=== PATIENT | female | born 1955 | race Caucasian/White ===

== ENCOUNTER 2020-07-01 08:12 | Outpatient (REF) | payer OTHER, SELFPAY ==
--- NOTE | ~2020-07-01 | US_ITS ---
EXAMINATION: US RETROPERITONEAL LIMITED (RENAL ONLY) CLINICAL INFORMATION: Renal stones. COMPARISON: Previous renal ultrasound most recent April 2019 TECHNIQUE: Grayscale and color imaging of the kidneys FINDINGS: RIGHT KIDNEY: 8.7 x 3.9 x 4.1 cm (SAG x AP x TRV). The right kidney is smaller than the left. The right kidney is normal in contour. Renal cortical thickness is normal. There are 2 stones in the lower pole measuring 7 x 5 x 5 mm and 5 x 4 x 4 mm. There is no hydronephrosis or renal mass. LEFT KIDNEY: 12.4 x 4.9 x 5.4 cm (SAG x AP x TRV). The kidney is normal in size, contour, and echogenicity. Renal cortical thickness is normal. There is a 3 mm stone in the lower pole. There is no hydronephrosis or renal mass. US/US renal BI IMPRESSION: Bilateral renal stones. The right kidney is smaller than the left.
== END 2020-07-01 08:13 | disposition home or self-care (01) ==
LOC: HO.US 08:12
PROVIDERS: Visit Provider Urology
DX: N20.0 Calculus of kidney (principal)
CPT/HCPCS: 76775

== ENCOUNTER → 2020-07-09 08:42 | Outpatient (BNVA) | payer OTHER, SELFPAY | PROVIDERS: PCP Pediatrics; Visit Provider Urology ==

== ENCOUNTER 2020-07-19 10:59 | Outpatient (REF) | payer OTHER, SELFPAY ==
--- NOTE | ~2020-07-19 | MM_ITS ---
EXAMINATION: MM DIAGNOSTIC DIGITAL BREAST TOMOSYNTHESIS, BILATERAL CLINICAL INFORMATION: Six-month follow-up right breast stereotactic core biopsy. Screening left breast mammogram. COMPARISON: Mammography: December 21, 2019 and studies dating back to June 22, 2011 TECHNIQUE: Digital breast tomosynthesis is performed in both the craniocaudal and mediolateral oblique views along with computer-aided detection (CAD). Synthesized 2D images are generated from the tomosynthesis. Spot magnification films of the right breast in craniocaudal and 90 degree mediolateral views also performed. FINDINGS: There are scattered areas of fibroglandular density (ACR BI-RADS breast composition Category b). There are no new significant masses, abnormal calcifications, or other abnormalities. The density about 2 clips about the inferior lateral aspect deep right breast again seen. Very faint fine calcifications are again noted within this region. No significant changes identified compared to prior study. Recommend 1 year bilateral mammography with right breast magnification films at that time. Results are provided to the patient at time of visit by the technologist. MM/MM tomosynthesis diagnostic BI IMPRESSION: There are no significant changes from prior study. ASSESSMENT: BI-RADS 2: Benign RECOMMENDATION: Diagnostic mammography at time of next annual exam, due in 12 months. This patient's information was entered into a reminder system with a target due date for their next mammogram.
== END 2020-07-19 11:00 | disposition home or self-care (01) ==
LOC: HO.MAMMO 10:59
PROVIDERS: Visit Provider Pediatrics
DX: R92.1 Mammographic calcification found on diagnostic imaging of breast (principal)
CPT/HCPCS: 77062; 77066

== ENCOUNTER 2020-07-24 06:10 | Day surgery (SDC) | payer OTHER, SELFPAY ==
[2020-07-18 10:17] VITALS: BMI 39.4
--- NOTE | 2020-07-23 09:25 | HO.ANESPROP2 ---
Documented by User: Elva Maldonado 07/23/20 09:27 HPI - Anesthesia Eval Consult details Narrative: 65yo F for Right Lithotripsy ESW Last eswl 2017 with MAC: Prop 140, midaz 2, fent 100 [facility] Active Problems Active Problems: All Active Problems (Updated 07/09/20 @ 08:45 by Ted Salcido MD) Urgency incontinence (Acute) Renal stones (Acute) Past Medical History Medical History Asthma Obesity Renal stones Urgency incontinence Surgical History Surgical History H/O colonoscopy History of carpal tunnel release Hx laparoscopic cholecystectomy Hx of cataract extraction Hx of cystoscopy Social History Social History Smoking Status: Never smoker Advance Directives Information Provided: No Meds Allergies Allergy/AdvReac Type Severity Reaction Status Date / Time peach [PEACH] Allergy Intermediate DIFFICULTY Verified 07/24/20 06:55 BREATHING Home Medications Medication Instructions Recorded Confirmed Last Taken Type oxybutynin chloride 1 tab PO DAILY 07/18/20 07/18/20 Unknown History Exam Exam Date and Time: July 23, 2020 0925 Height,Weight and Vital Signs: Height 4 ft 11 in Weight 88.451 kg Assessment and Plan Assessment Anesthesia Assessment: Chart Reviewed Documented by User: Asia Rushing 07/24/20 07:31 [facility] Past Medical History Medical History Asthma Obesity Renal stones Urgency incontinence Surgical History Surgical History H/O colonoscopy History of carpal tunnel release Hx laparoscopic cholecystectomy Hx of cataract extraction Hx of cystoscopy Social History Social History Smoking Status: Never smoker Advance Directives Information Provided: No Meds Allergies Allergy/AdvReac Type Severity Reaction Status Date / Time peach [PEACH] Allergy Intermediate DIFFICULTY Verified 07/24/20 06:55 BREATHING Home Medications Medication Instructions Recorded Confirmed Last Taken Type oxybutynin chloride 1 tab PO DAILY 07/18/20 07/18/20 Unknown History Exam Airway Mallampati Class: III TM Dist: >3cm Neck ROM: Full Heart: RRR Lungs: CTA
--- NOTE | ~2020-07-24 | XR_ITS ---
EXAMINATION: XR ABDOMEN KUB CLINICAL INDICATION: Kidney stone. COMPARISON: Ultrasound kidneys 07/01/2020. TECHNIQUE: AP view of the abdomen. FINDINGS: There is scattered stool and gas seen throughout the colon without any significant distention. No radiopaque calculi seen. Recent ultrasound visualized bilateral renal calculi are not seen well. There are phleboliths in the left pelvis. Gallbladder has been surgically removed. XR/XR KUB IMPRESSION: No radiopaque calculi seen on this KUB. There is mild constipation.
[2020-07-24 06:51] VITALS: BP 133/73; PULSE 83; RESP 16; TEMP 36.4; O2SAT 99
[2020-07-24] MEDS: Lactated Ringers 1,000 ML 100 ML IVCONT (06:56)
--- NOTE | 2020-07-24 08:14 | MHC.SHP ---
Pre-Procedural Eval Section A The patient is an INPATIENT: No Changes since office visit: No Cold of Flu in the past 2 weeks, No New Medical Problems, No Changes in Medication and No Patient answered all questions The History & Physical has been completed within 30 days and I have reviewed it.: Yes Section B Chief Complaint: calculus of kidney Allergies: Allergies Allergy/AdvReac Type Severity Reaction Status Date / Time peach [PEACH] Allergy Intermediate DIFFICULTY Verified 07/24/20 06:55 BREATHING Plan Diagnosis/Plan: Unchanged I have reviewed the history and physical and performed a pertinent physical examination on my patient. No changes have occurred unless specified.
--- NOTE | 2020-07-24 08:15 | W.PM.OPN ---
Operative Note Operative Note Date of Service: 07/24/20 Narrative: PreOperative Diagnosis: Right Renal stones Post Operative Diagnosis: Right Renal stones Procedure: ESWL Surgeon: Dr Ted Salcido Anesthesia: mac/sedation Indications for procedure: They understand ESWL may be a staged procedure and subsequent intervention may be required based on imaging after ESWL. They also understand there is a risk of bleeding, infection, damage to adjacent organs. - 2 6 mm stones right side Procedure: After informed consent was verified the patient was brought to the operating room and placed in a supine position. Anesthesia was performed per protocol. Safety pause time-out was performed. Imaging was in the room and laterality confirmed. ESWL was performed. The 1st 500 shocks were performed at 60 hertz. These were performed with increasing power. Once maximum power was reached the rate was increased to 180 hertz. A total of 2500 shocks were given. Fluoroscopy showed stone disintegration. They tolerated procedure well and was transferred to the recovery area upon completion.
[2020-07-24 08:25] VITALS: BP 134/72; PULSE 77; RESP 16; TEMP 36.8; O2SAT 96
[2020-07-24] MEDS: Acetaminophen 325 MG TABLET 650 MG PO (08:31)
[2020-07-24] MEDS: Phenazopyridine HCL 100 MG TABLET PO (08:31)
[2020-07-24 08:32] VITALS: BP 136/79; PULSE 81; RESP 18; O2SAT 97
[2020-07-24 08:37] VITALS: BP 148/75; PULSE 68; RESP 18; O2SAT 99
[2020-07-24 08:41] VITALS: BP 152/74; PULSE 70; RESP 18; O2SAT 98
--- NOTE | 2020-07-24 08:52 | HO.POSTANES ---
Post Anesthesia Evaluation Post Anesthesia Evaluation Vital Signs: Vital Signs Temp Pulse Resp BP Pulse Ox 07/24/20 08:41 70 18 152/74 H 98 07/24/20 08:37 68 18 148/75 H 99 07/24/20 08:32 81 18 136/79 97 07/24/20 08:25 98.2 F 77 16 134/72 96 07/24/20 06:51 97.5 F 83 16 133/73 99 Anesthesia: General Mental Status: Awake Pain Control: Satisfactory Nausea/Vomiting: None Hydration: Adequate Anesthesia-Related Issues: No Anes. Related Issues
[2020-07-24 08:54] VITALS: BP 135/73; PULSE 66; RESP 16; O2SAT 96
== END 2020-07-24 09:30 ==
LOC: HO.SSS 06:10
PROVIDERS: PCP Pediatrics; Visit Provider Urology
PROC: (CPT 50590; principal; 2020-07-24 07:30)
DX: N20.0 Calculus of kidney (principal); Z87.442 Personal history of urinary calculi; N39.41 Urge incontinence; E66.9 Obesity, unspecified; Z68.39 Body mass index [BMI] 39.0-39.9, adult; J45.909 Unspecified asthma, uncomplicated; Z79.899 Other long term (current) drug therapy; Z90.49 Acquired absence of other specified parts of digestive tract
CPT/HCPCS: 50590; 74018; J2250; J2370; J2405; J3010

== ENCOUNTER 2020-08-14 09:12 | Outpatient (REF) | payer OTHER, SELFPAY ==
--- NOTE | ~2020-08-14 | US_ITS ---
EXAMINATION: US RETROPERITONEAL LIMITED (RENAL ONLY) CLINICAL INFORMATION: Calculus of kidney. COMPARISON: X-ray KUB 07/24/2020. Ultrasound renal 07/01/[address] 04/19/2019. CT abdomen pelvis 02/04/2018. TECHNIQUE: Real-time imaging of the kidneys. FINDINGS: RIGHT KIDNEY: 9.2 x 3.7 x 3.8 cm (SAG x AP x TRV). The kidney is normal in size, contour, and echogenicity. Renal cortical thickness is normal. No focal parenchymal lesions or hydronephrosis. There are 2 nonobstructing calculi in the lower pole measuring 2 mm each. LEFT KIDNEY: 12.0 x 5.2 x 5.4 cm (SAG x AP x TRV). The kidney is normal in size, contour, and echogenicity. Renal cortical thickness is normal. No focal parenchymal lesions or hydronephrosis. 2 nonobstructing calculi in the lower pole measuring 4 mm each. US/US renal BI IMPRESSION: Bilateral nonobstructing renal calculi. No hydronephrosis.
== END 2020-08-14 09:13 | disposition home or self-care (01) ==
LOC: HO.US 09:12
PROVIDERS: Visit Provider Urology
DX: N20.0 Calculus of kidney (principal)
CPT/HCPCS: 76775

== ENCOUNTER → 2020-08-16 13:26 | Outpatient (BNVA) | payer OTHER, SELFPAY | PROVIDERS: PCP Pediatrics; Visit Provider Urology ==

== ENCOUNTER 2020-09-10 04:04 | Emergency (ER) | payer OTHER, SELFPAY ==
--- NOTE | 2020-09-10 | ECG_ITS ---
Test Reason : ARM PAIN Blood Pressure : / mmHG Vent. Rate : 078 BPM Atrial Rate : 078 BPM P-R Int : 200 ms QRS Dur : 138 ms QT Int : 410 ms P-R-T Axes : 035 -15 010 degrees QTc Int : 467 ms Normal sinus rhythm Right bundle branch block Abnormal ECG When compared with ECG of 06-FEB-2018 09:58, Vent. rate has decreased BY 42 BPM Referred By: Sanjuanita Roman Electronically Signed By:BETH COLEY
--- NOTE | ~2020-09-10 | XR_ITS ---
EXAMINATION: XR PORTABLE CHEST CLINICAL INFORMATION: Chest pain COMPARISON: 05/04/2007 TECHNIQUE: AP portable upright view of the chest FINDINGS: Cardiac leads overlie the chest. There is mild dependent atelectasis in the left lung base. No consolidation, pneumothorax, or pleural effusion. Cardiac and mediastinal contours are normal. Calcific atherosclerosis is present in the thoracic aorta. No acute osseous abnormalities. XR/XR chest 1V IMPRESSION: Mild dependent atelectasis in the left lower lobe. No acute cardiopulmonary findings.
[2020-09-10 04:16] VITALS: PULSE 104; RESP 16; TEMP 36.6; O2SAT 97; BMI 75.3
[2020-09-10 04:40] LABS: MANUAL DIFF FLAG NO
[2020-09-10 04:41] LABS: Basophils Absolute Auto 0.1 X10*3/uL (0.0-0.2); Basophils Percent Auto 0.7 % (0-2); Eosinophils Absolute Auto 0.3 X10*3/uL (0.0-0.4); Eosinophils Percent Auto 3.5 % (0-4); Hematocrit 39.7 % (37-47); Hemoglobin 12.8 g/dl (12.0-16.0); Imm Gran Abs Auto 0.05 X10*3/uL (0.00-0.03); Imm Gran Pct Auto 0.6 % (0.0-0.4); Lymphocytes Absolute Auto 2.2 X10*3/uL (1.2-4.9); Lymphocytes Percent Auto 25.1 % (20-40); Mean Corpuscular HGB Conc 32.2 g/dl (31.0-35.0); Mean Corpuscular Hemoglobin 31.1 pg (27.0-33.0); Mean Corpuscular Volume 96.4 fL (80-98); Mean Platelet Volume 10.8 fL (9.4-12.3); Monocytes Absolute Auto 0.8 X10*3/uL (0.1-1.2); Monocytes Percent Auto 8.6 % (2-11); Neutrophils Absolute Auto 5.4 X10*3/uL (2.0-8.3); Neutrophils Percent Auto 61.5 % (45-73); Platelet Count 151 X10*3/uL (160-400); Red Blood Count 4.12 X10*6/uL (4.20-5.50); Red Cell Distribution Width 12.6 % (11.0-16.0); White Blood Count 8.8 X10*3/uL (4.8-10.8)
[2020-09-10 05:09] LABS: Troponin-I High Sensitivity 5.9 ng/L (<3.5-17.0)
--- NOTE | 2020-09-10 05:17 | PC.NURSE ---
EKG OBTAINED TO
--- NOTE | 2020-09-10 05:21 | PC.NURSE ---
IN ROOM FOR EVAL.
--- NOTE | 2020-09-10 05:30 | ED.EXTPRO ---
HPI - Extremity Problem General Chief complaint: Extremity Injury, Upper Stated complaint: left arm pain Time Seen by Provider: 09/10/20 05:15 Source: patient Mode of arrival: EMS Limitations: no limitations History of Present Illness HPI Narrative: Patient comes emergency room complaining of left arm pain. Patient states it started around 00:30. Patient states she was working at [employer] [facility] [place], noticed that she had left arm pain, did not think much of it, walked to her car, had to sit a few minutes for the pain to resolve. The pain did not resolve, patient went home, the left arm pain got worse. Prior to arrival, patient called EMS because the pain was getting worse. Patient denies chest pain, no shortness of breath. Patient states the left arm pain radiates towards the right side of the neck. EMS gave the patient 324 mg of aspirin and nitroglycerin nasal spray. Patient states that the pain resolved. At this time, patient is asymptomatic. Patient denies any recent arm injuries, no heavy lifting. Related Data Home Medications Medication Instructions Recorded Confirmed oxybutynin chloride 1 tab PO DAILY 07/18/20 07/18/20 Previous Rx's Medication Instructions Recorded tamsulosin 0.4 mg PO BEDTIME #14 cap 07/24/20 allopurinol 100 mg tablet 100 mg PO DAILY 90 Days #90 tab 08/16/20 pyridoxine (vitamin B6) 100 mg 100 mg PO DAILY 90 Days #90 tab 08/16/20 tablet Allergies Allergy/AdvReac Type Severity Reaction Status Date / Time peach [PEACH] Allergy Intermediate DIFFICULTY Verified 08/16/20 13:28 BREATHING Review of Systems Review of Systems: Constitutional : No Weight loss, No Fever, No Chills, No Night Sweats, No Fatigue, No Malaise ENT/Mouth : No Hearing loss, No Ear Pain, No Nasal Congestion, No Sinus Pain, No Hoarseness, No sore throat, No Rhinorrhea, No Swallowing Difficulty Eyes: No Eye Pain, No Swelling, No Redness, No Foreign Body, No Discharge, No Vision Changes Cardiovascular : No Chest Pain, No SOB, No Dyspnea on Exertion, No Orthopnea, No Edema, No Palpitations, see extremities Respiratory : No Cough, No Sputum, No Wheezing, No Smoke Exposure, No Dyspnea Gastrointestinal : No Nausea, No Vomiting, No Diarrhea, No Constipation, No abdominal Pain, No Hematochezia, No Melena Genitourinary : no irregular bleeding, No Dysuria, No Urinary Frequency, No Hematuria, No Urinary Incontinence, No Urgency, No Flank Pain, No Urinary Flow Changes, No Hesitancy Musculoskeletal : Complaining of left-sided shoulder pain radiating towards the right side of the neck No Myalgias, No Joint Swelling Skin : No Skin Lesions, No rash Neuro : No Weakness, No Numbness, No Paresthesias, No Loss of Consciousness, No Dizziness, No Headache Psych : No Anxiety/Panic, No Depression, No SI/HI/AH/VH, No Social Issues, Heme/Lymph: No Bruising, No Bleeding,No Lymphadenopathy Endocrine : No Polyuria, No Polydipsia, No Temperature Intolerance [facility] Past Medical History Medical History Asthma Obesity Renal stones Urgency incontinence Surgical History H/O colonoscopy History of carpal tunnel release Hx laparoscopic cholecystectomy Hx of cataract extraction Hx of cystoscopy Social History Social History Smoking Status: Never smoker Advance Directives: No Advance Directives Information Provided: No Physical Exam Vital Signs: Vital Signs: Last Vital Signs Temp 98 F 09/10/20 04:16 Pulse 104 H 09/10/20 04:16 Resp 16 09/10/20 04:16 Pulse Ox 97 09/10/20 04:16 Body Mass Index 75.3 Appearance: Alert. Oriented X3. No acute distress. Eyes: Pupils equal, round and reactive to light. ENT: Pharynx normal. Neck: Normal inspection. Neck supple. No lymph nodes noted. No crepitus CVS: Normal heart rate and rhythm. Pulses normal. Normal S1 and S2 Respiratory: No respiratory distress. Breath sounds normal. No Wheezing. No rales Abdomen: Soft and nontender. No rigidity. No distention. good BS x4 Skin: Skin warm and dry. Normal skin color. Normal skin turgor. Extremities: No lower extremity edema. Patient has full range of motion with her left arm, patient does have pain to palpation over the trapezius muscle on the left side Neuro: Oriented X 3. No motor deficit. No sensory deficit. Moving all extermities. No slurred speech. Course Course Course Narrative: Patient's 1st troponin is 5.9, it has been less than 6 hours since the patient had the initial onset of left arm pain. Discussed with the patient we will go ahead and repeat the troponin in 3 hours, patient agrees with plan. At this time, patient remains asymptomatic. Troponin 2. Due at 07:30. Patient remains asymptomatic. It is likely that the patient's pain is musculoskeletal Sign-out given to Dr. Diaz MDM - Extremity (Nontraumatic) Lab Data Result diagrams: 09/10/20 04:35 09/10/20 05:02 Labs: Lab Results 09/10/20 09/10/20 09/10/20 Range/Units 04:35 04:35 04:35 WBC 8.8 (4.8-10.8) X10*3/uL RBC 4.12 L (4.20-5.50) X10*6/uL Hgb 12.8 (12.0-16.0) g/dl Hct 39.7 (37-47) % MCV 96.4 (80-98) fL MCH 31.1 (27.0-33.0) pg MCHC 32.2 (31.0-35.0) g/dl RDW 12.6 (11.0-16.0) % Plt Count 151 L (160-400) X10*3/uL MPV 10.8 (9.4-12.3) fL Immature Gran % (Auto) 0.6 H (0.0-0.4) % Neut % (Auto) 61.5 (45-73) % Lymph % (Auto) 25.1 (20-40) % [place] % (Auto) 8.6 (2-11) % Eos % (Auto) 3.5 (0-4) % Baso % (Auto) 0.7 (0-2) % Lymph # (Auto) 2.2 (1.2-4.9) X10*3/uL [place] # (Auto) 0.8 (0.1-1.2) X10*3/uL Eos # (Auto) 0.3 (0.0-0.4) X10*3/uL Baso # (Auto) 0.1 (0.0-0.2) X10*3/uL Abs Immat Gran (auto) 0.05 H (0.00-0.03) X10*3/uL Absolute Neuts (auto) 5.4 (2.0-8.3) X10*3/uL Absolute Nucleated RBC 0.000 (0.0-0.012) X10*3/uL Nucleated RBC % (auto) 0.0 (0.0-0.2) /100WBC Hold Blue Top SEE NOTE Sodium (135-145) mmol/L Potassium (3.3-5.1) mmol/L Chloride (96-108) mmol/L Carbon Dioxide (22-29) mmol/L Anion Gap (12-20) BUN (9-16) mg/dL Creatinine (0.5-1.4) mg/dL Estim Creat Clear Calc Estimated GFR Random Glucose (60-115) mg/dL Calcium (8.4-10.2) mg/dL Total Bilirubin (0.0-1.0) mg/dL AST (5-31) U/L ALT (0-31) U/L Alkaline Phosphatase (39-117) U/L Troponin I High Sens 5.9 (<3.5-17.0) ng/L Total Protein (6.5-8.0) g/dL Albumin (3.5-5.0) g/dL 09/10/20 Range/Units 05:02 WBC (4.8-10.8) X10*3/uL RBC (4.20-5.50) X10*6/uL Hgb (12.0-16.0) g/dl Hct (37-47) % MCV (80-98) fL MCH (27.0-33.0) pg MCHC (31.0-35.0) g/dl RDW (11.0-16.0) % Plt Count (160-400) X10*3/uL MPV (9.4-12.3) fL Immature Gran % (Auto) (0.0-0.4) % Neut % (Auto) (45-73) % Lymph % (Auto) (20-40) % [place] % (Auto) (2-11) % Eos % (Auto) (0-4) % Baso % (Auto) (0-2) % Lymph # (Auto) (1.2-4.9) X10*3/uL [place] # (Auto) (0.1-1.2) X10*3/uL Eos # (Auto) (0.0-0.4) X10*3/uL Baso # (Auto) (0.0-0.2) X10*3/uL Abs Immat Gran (auto) (0.00-0.03) X10*3/uL Absolute Neuts (auto) (2.0-8.3) X10*3/uL Absolute Nucleated RBC (0.0-0.012) X10*3/uL Nucleated RBC % (auto) (0.0-0.2) /100WBC Hold Blue Top Sodium 138 (135-145) mmol/L Potassium 3.4 (3.3-5.1) mmol/L Chloride 108 (96-108) mmol/L Carbon Dioxide 24 (22-29) mmol/L Anion Gap 9 L (12-20) BUN 22 H (9-16) mg/dL Creatinine 0.93 (0.5-1.4) mg/dL Estim Creat Clear Calc 93.8 Estimated GFR > 60 Random Glucose 176 H (60-115) mg/dL Calcium 8.6 (8.4-10.2) mg/dL Total Bilirubin 0.4 (0.0-1.0) mg/dL AST 38 H (5-31) U/L ALT 40 H (0-31) U/L Alkaline Phosphatase 78 (39-117) U/L Troponin I High Sens (<3.5-17.0) ng/L Total Protein 8.3 H (6.5-8.0) g/dL Albumin 3.6 (3.5-5.0) g/dL ECG Data Attestation EKG: I personally reviewed and interpreted this ECG as follows: (Sinus rhythm, heart rate 78, no ST segment depression or elevation, nonspecific T-wave inversion in V3, old right bundle branch block notice in 2018, QTC 467, no EKG changes) Discharge Plan Discharge Clinical Impression: Arm pain, left Patient Disposition: Home, Self-Care Instructions: Arm Pain (ED) Additional Instructions: Please follow-up with your primary care physician tomorrow. If you have any worsening or new symptoms, please return to the emergency room or call 911 Prescriptions: No Action oxybutynin chloride 10 mg tablet extended release 24hr 1 tab PO DAILY RF: 0 tamsulosin 0.4 mg capsule 0.4 mg PO BEDTIME Qty: 14 RF: 0 pyridoxine (vitamin B6) 100 mg tablet 100 mg PO DAILY 90 Days Qty: 90 RF: 1 allopurinol 100 mg tablet 100 mg PO DAILY 90 Days Qty: 90 RF: 1
[2020-09-10 05:36] LABS: Alanine Aminotransferase 40 U/L (0-31); Albumin Level 3.6 g/dL (3.5-5.0); Alkaline Phosphatase 78 U/L (39-117); Anion Gap 9 (12-20); Aspartate Amino Transferase 38 U/L (5-31); Bilirubin Total 0.4 mg/dL (0.0-1.0); Blood Urea Nitrogen 22 mg/dL (9-16); Calcium 8.6 mg/dL (8.4-10.2); Carbon Dioxide 24 mmol/L (22-29); Chloride 108 mmol/L (96-108); Creatinine Clr Calc Pharmacy 93.8; Estimated Glomerular Filt Rate > 60; Glucose Random 176 mg/dL (60-115); Potassium 3.4 mmol/L (3.3-5.1); Sodium 138 mmol/L (135-145); Total Protein 8.3 g/dL (6.5-8.0)
[2020-09-10 06:46] VITALS: BP 137/76; PULSE 80; RESP 16; O2SAT 98
[2020-09-10 08:24] LABS: Troponin-I High Sensitivity 221.9 ng/L (<3.5-17.0)
[2020-09-10 08:53] LABS: Prothrombin Time 12.3 SEC (10.8-13.0)
[2020-09-10 09:35] LABS: COVID-19 Test Negative (Negative); IDNOW Serial# 9DD0AD1C
--- NOTE | 2020-09-10 09:57 | CA_ITS ---
Transthoracic Echocardiogram Amended Patient (Last, First, Middle): Claudia Nair, Gender: Female Date of : 1955 Age: 65 Procedure Date: 09/10/2020 Procedure Type: Transthoracic Echocardiogram Location: ER Height: 149.86 cm Weight: 87.63 kg BSA: 1.82 m2 Heart Rate: bpm BP: 170 / [address] Servicer: VH Referring MD: ANDERSON Symptoms: NSTEMI Study Quality: Fair ECG Rhythm: Sinus Conclusions: - The left ventricular systolic function is normal. The visually estimated ejection fraction is between 60-65%. - The inferolateral wall, the basal inferior, and mid inferior segments are hypokinetic. - No obvious valvular pathology seen on this study. Findings Left Ventricle Normal left ventricular cavity size. There is mildly increased left ventricular wall thickness. The left ventricular systolic function is normal. The visually estimated ejection fraction is between 60-65%. E/E prime ratio is between 8 and 15 consistent with indeterminate filling pressures. Evidence suggests grade I (mild) diastolic dysfunction. Wall Motion Rest Echo Findings The inferolateral wall, the basal inferior, and mid inferior segments are hypokinetic. Right Ventricle Normal right ventricular cavity size and systolic function. Atria The left atrium is normal in size. The right atrium is normal in size. Aortic Valve There is a normal trileaflet aortic valve. There is mild calcification of the aortic valve. There is no aortic valve stenosis. There is no aortic valve regurgitation. Mitral Valve The mitral valve appears normal. There is mild mitral valve regurgitation. There is no mitral valve stenosis. Pulmonic Valve The pulmonic valve was not well visualized. Tricuspid Valve Normal tricuspid valve structure. There is trace tricuspid valve regurgitation. The pulmonary artery systolic pressure is normal. Great Vessels The aortic annulus, sinuses of valsalva, and asc aorta are normal in size. Venous The inferior vena cava is normal in size and collapses greater than 50% with inspiration. Pericardium/Pleural There is no evidence of pericardial effusion. Recommendations, Care & Conclusions No obvious valvular pathology seen on this study. Measurements 2D Linear Measurements IVSd: 1.25 0.6-0.9/0.6-1.0 cm LVIDd: 3.56 3.9-5.3/4.2-5.9 cm LVIDd Index: 1.96 2.4-3.2/2.2-3.1 cm/m2 LVIDs: 2.29 2.0-3.6 cm LVPWd: 1.30 0.7-1.1 cm Ao Root: 2.80 2.1-3.5 cm LA Diam: 3.60 2.7-3.8/3.0-4.0 cm LAIDs Index: 1.98 1.5-2.3 cm/m2 LV Mass: 190.30 67-162/88-224 g LV Mass Index: 104.56 43-95/49-115 g/m2 LVOT Diam: 1.90 3.0+(-)1.3 cm 2D Volumes LA Vol: 23.00 Mitral Valve MV Pk E: 0.71 MV PK A: 1.00 MV Decel Time: 134.00 E/A: 0.70 E'Lateral: 7.93 E'Medial: 6.09 E/E' Med: 11.70 E/E' Lat: 9.00 PHT: 39.00 MVA PHT: 5.64 Decel Titus: 5.33 Aortic Valve AoV Pk [place]: 1.64 AoV Mn [place]: 0.89 AoV VTI: 0.30 AoV Pk Grad: 11.00 Aov Mn Grad: 4.00 MADELIN Cont.VTI: 2.18 LVOT LVOT Pk [place]: 1.03 LVOT Mn [place]: 0.67 LVOT VTI: 0.23 LVOT Pk Grad: 4.00 LVOT Mn Grad: 2.00 LVOT Diam: 1.90 LVOT Area: 2.84 Diastolic Function MV Pk E: 0.71 MV Pk A: 1.00 E/A: 0.70 E'Medial: 6.09 E/E' Med: 11.70 E' Laterial: 7.93 E/E' Lat: 9.00 Tricuspid Valve TR Pk [place]: 2.10 TR Pk Grad: 18.00 RA Press: 3.00 RVSP: 21.00 Great Vessels Aorta Ao Root-2D: 2.80 2.0-3.7 cm Ao Asc: 3.40 2.1-3.4 cm Pulmonary Valve PV Pk [place]: 0.99 Peak PV Grad: 4.00 Updated in Other Vendor System with Status of Final Reid Oliveira MD electronically signed on 09/10/2020 12:21:33 PM with status of Final
[2020-09-10 10:13] VITALS: BMI 39.2
[2020-09-10 10:14] VITALS: BP 125/54; PULSE 103; RESP 16; O2SAT 98
[2020-09-10] MEDS: Enoxaparin Sodium 80 MG/0.8 ML SYRINGE 87 MG SUBCUT (10:31)
--- NOTE | 2020-09-10 11:14 | P.CONCA_ITS ---
History of Present Illness History of Present Illness Date of Service: 09/10/20 Consult reason: troponin elevation Chief complaint: left arm pain Narrative: This is a cardiology consultation regarding elevated troponins. Patient does not have any known cardiac problems. No history of any coronary disease myocardial infarction or cardiomyopathy or in fact anything else from cardiac standpoint. She also denies any history of known diabetes or hypertension or other major risk factors for cardiac disease. She states that she finished work at the [employer] and she woke last night. Then she noticed that she was having a discomfort/achy feeling in the left arm. She denies having any clear precordial chest pain or jaw discomfort extra. Then she present to the ER and the initial troponin was okay with 2nd troponin had a significant bump and hence we have been asked to see her. Currently she states that she feels well. Review of Systems Review of Systems: Yes all other systems are reviewed and are negative Cardiovascular: Cardiovascular: Reports as per HPI, Reports no additional cardiovascular complaints, Denies acrocyanosis, Denies cool extremities, Denies painful fingertips, Denies chest pain, Denies chest pain at rest, Denies diaphoresis, Denies syncope, Denies irregular heart rhythm, Denies claudication, Denies leg edema, Denies lightheadedness, Denies palpitations and Denies dyspnea Respiratory: Respiratory: Denies dyspnea Neurologic: Denies syncope Endocrine: Endocrine: Denies palpitations PMFSH Past Medical History Medical History Asthma Obesity Renal stones Urgency incontinence Surgical History Surgical History H/O colonoscopy History of carpal tunnel release Hx laparoscopic cholecystectomy Hx of cataract extraction Hx of cystoscopy Social History Social History Alcohol intake: never Smoking Status: Never smoker Use of substances other than those prescribed or required for medical reasons: No Advance Directives: No Advance Directives Information Provided: No Meds Allergies Allergy/AdvReac Type Severity Reaction Status Date / Time peach [PEACH] Allergy Intermediate DIFFICULTY Verified 08/16/20 13:28 BREATHING Active Medications: Current Medications Generic Name Dose Route Start Last Admin Trade Name Freq PRN Reason Stop Dose Admin Pharmacy Consult 1 each 09/10/20 08:45 Consult Rx Perform Med Rec MISCELLANE ONCE PRN Consult order Home Medications Medication Instructions Recorded Confirmed Last Taken Type albuterol sulfate 2 puff INHALATION QID PRN 09/10/20 09/10/20 Unknown History Physical Exam Vital Signs: Vital Signs: Last Vital Signs Temp 98 F 09/10/20 04:16 Pulse 103 H 09/10/20 10:14 Resp 16 09/10/20 10:14 BP 125/54 L 09/10/20 10:14 Pulse Ox 98 09/10/20 10:14 Body Mass Index 39.2 Const: General: cooperative, comfortable and no acute distress Orientation/consciousness: patient oriented x3 HENMT: Other: Unremarkable Neck: Neck: Yes normal visual inspection Chest: Chest palpation & inspection: normal inspection of the chest Resp: Auscultation: clear to auscultation bilaterally, no crackles and no wheezes Cardio: Jugular venous distension: no JVD Palpation: normal PMI Heart sounds: S1 normal heart sound present, S2 normal heart sound present, no gallops, no murmurs and no rubs GI: Palpation (GI): Soft to palpation Back/Spine/Pelvis: Other: unremarkable Skin: General skin exam: no rashes or lesions noted Neuro: General: patient oriented x3 Extrem: General: Yes no clubbing, cyanosis or edema Psych: Mental Status: mental status grossly normal Results Labs and Meds Result diagrams: 09/10/20 04:35 09/10/20 05:02 Lab results: Laboratory Results - last 24 hr 09/10/20 09/10/20 09/10/20 04:35 04:35 04:35 WBC 8.8 RBC 4.12 L Hgb 12.8 Hct 39.7 MCV 96.4 MCH 31.1 MCHC 32.2 RDW 12.6 Plt Count 151 L MPV 10.8 Immature Gran % (Auto) 0.6 H Neut % (Auto) 61.5 Lymph % (Auto) 25.1 [place] % (Auto) 8.6 Eos % (Auto) 3.5 Baso % (Auto) 0.7 Lymph # (Auto) 2.2 [place] # (Auto) 0.8 Eos # (Auto) 0.3 Baso # (Auto) 0.1 Abs Immat Gran (auto) 0.05 H Absolute Neuts (auto) 5.4 Absolute Nucleated RBC 0.000 Nucleated RBC % (auto) 0.0 PT 12.3 INR 1.0 Hold Blue Top SEE NOTE Sodium Potassium Chloride Carbon Dioxide Anion Gap BUN Creatinine Estim Creat Clear Calc Estimated GFR Random Glucose Calcium Total Bilirubin AST ALT Alkaline Phosphatase Troponin I High Sens 5.9 Total Protein Albumin COVID-19 (WEI) COVID-19 Clin Com 09/10/20 09/10/20 09/10/20 05:02 07:42 09:03 WBC RBC Hgb Hct MCV MCH MCHC RDW Plt Count MPV Immature Gran % (Auto) Neut % (Auto) Lymph % (Auto) [place] % (Auto) Eos % (Auto) Baso % (Auto) Lymph # (Auto) [place] # (Auto) Eos # (Auto) Baso # (Auto) Abs Immat Gran (auto) Absolute Neuts (auto) Absolute Nucleated RBC Nucleated RBC % (auto) PT INR Hold Blue Top Sodium 138 Potassium 3.4 Chloride 108 Carbon Dioxide 24 Anion Gap 9 L BUN 22 H Creatinine 0.93 Estim Creat Clear Calc 93.8 Estimated GFR > 60 Random Glucose 176 H Calcium 8.6 Total Bilirubin 0.4 AST 38 H ALT 40 H Alkaline Phosphatase 78 Troponin I High Sens 221.9 H D Total Protein 8.3 H Albumin 3.6 COVID-19 (WEI) Negative COVID-19 Clin Com See Note ECG Attestation: I personally reviewed and interpreted this ECG as follows: Interpretation: EKG with sinus rhythm and right bundle-branch block pattern. Compared to prior study from 2018, no significant change. Imaging Radiologist's impression: Impressions Chest X-Ray 09/10/20 08:32 IMPRESSION: Mild dependent atelectasis in the left lower lobe. No acute cardiopulmonary findings. Assessment and Plan (1) Non-ST elevation TX (NSTEMI): Status: Acute (2) Arm pain, left: Status: Acute Her left arm pain is likely from non ST elevation myocardial infarction. EKG does not show any clear ischemic changes but the troponins show clear rise. Initial troponin was 5.9 but the repeat was 222. We will get an echocardiogram for LV function assessment and wall motion. Otherwise, may use Lovenox per NSTEMI protocol. Aspirin, high-dose statins. Once I review the echocardiogram and discussed with [facility] about transfer for cardiac catheterization. Discussed with the patient as well and she understands. She agrees with the plan as well.
[2020-09-10 11:17] VITALS: BP 164/75; PULSE 88; RESP 16; O2SAT 99
[2020-09-10 11:36] VITALS: BP 154/64; PULSE 83
[2020-09-10] MEDS: Atorvastatin Calcium 80 MG TABLET PO (11:36)
[2020-09-10] MEDS: Metoprolol Tartrate 50 MG TABLET PO (11:36)
--- NOTE | 2020-09-10 14:19 | PC.NURSE ---
pt accepted to [facility] 5 rm 10A
[2020-09-10 15:13] VITALS: BP 129/77; PULSE 78; RESP 16; O2SAT 97
--- NOTE | 2020-09-10 15:19 | PC.NURSE ---
CALL PLACED TO [facility] BY [facility] LIAISON LILY NINO TO INQUIRE ABOUT ETA OF ALS TRANSPORT FROM [facility] TO TAKE PATIENT TO [facility]. LILY REPORTS THAT ETA IS 1600 AND ADVISED TO HAVE THIS MANAGER MARKET TO CALL [facility] AT THAT TIME IF TRANSPORT HAS YET TO ARRIVE.
== END 2020-09-10 16:00 | disposition short-term general hospital (02) ==
PROVIDERS: Emergency Medicine; Emergency Provider Emergency Medicine
DX: I21.4 Non-ST elevation (NSTEMI) myocardial infarction (principal); R77.8 Other specified abnormalities of plasma proteins; M79.602 Pain in left arm
CPT/HCPCS: 36415; 71045; 80053; 84484; 85025; 85610; 87635; 93005; 93306; 96372; 99285; J1650; Q9957

== ENCOUNTER → 2020-09-23 10:22 | Outpatient (BNVA) | payer OTHER, SELFPAY | PROVIDERS: Referring Provider Surgery; Visit Provider Nurse Practitioner Family ==

== ENCOUNTER → 2020-12-16 09:09 | Outpatient (BNVA) | payer OTHER, SELFPAY | PROVIDERS: Visit Provider Internal Medicine ==

== ENCOUNTER 2021-01-02 17:31 | Inpatient (IN) | payer OTHER, SELFPAY ==
--- NOTE | 2021-01-02 | ECG_ITS ---
Test Reason : EDMA Blood Pressure : / mmHG Vent. Rate : 084 BPM Atrial Rate : 084 BPM P-R Int : 148 ms QRS Dur : 132 ms QT Int : 396 ms P-R-T Axes : 020 014 011 degrees QTc Int : 467 ms Normal sinus rhythm Right bundle branch block Abnormal ECG When compared with ECG of 10-SEP-2020 05:09, No significant change was found Referred By: Generic ED Physician Electronically Signed By:SUHAS GERMAN
[2021-01-02 17:41] VITALS: BP 127/78; PULSE 96; RESP 18; TEMP 36.6; O2SAT 96; BMI 34.9
[2021-01-02 18:26] LABS: MANUAL DIFF FLAG NO
[2021-01-02 18:28] LABS: Basophils Absolute Auto 0.1 X10*3/uL (0.0-0.2); Basophils Percent Auto 0.8 % (0-2); Eosinophils Absolute Auto 0.5 X10*3/uL (0.0-0.4); Eosinophils Percent Auto 4.8 % (0-4); Hematocrit 40.5 % (37-47); Hemoglobin 13.4 g/dl (12.0-16.0); Imm Gran Abs Auto 0.09 X10*3/uL (0.00-0.03); Imm Gran Pct Auto 0.8 % (0.0-0.4); Lymphocytes Absolute Auto 2.1 X10*3/uL (1.2-4.9); Lymphocytes Percent Auto 19.7 % (20-40); Mean Corpuscular HGB Conc 33.1 g/dl (31.0-35.0); Mean Corpuscular Volume 96.7 fL (80-98); Mean Platelet Volume 10.8 fL (9.4-12.3); Monocytes Percent Auto 9.4 % (2-11); Neutrophils Percent Auto 64.5 % (45-73); Platelet Count 171 X10*3/uL (160-400); Red Blood Count 4.19 X10*6/uL (4.20-5.50); Red Cell Distribution Width 15.5 % (11.0-16.0); White Blood Count 10.9 X10*3/uL (4.8-10.8)
[2021-01-02 18:48] LABS: Alanine Aminotransferase 511 U/L (0-31); Albumin Level 3.3 g/dL (3.5-5.0); Alkaline Phosphatase 123 U/L (39-117); Anion Gap 13 (12-20); Aspartate Amino Transferase 498 U/L (5-31); Bilirubin Total 1.5 mg/dL (0.0-1.0); Blood Urea Nitrogen 39 mg/dL (9-16); Calcium 9.2 mg/dL (8.4-10.2); Carbon Dioxide 15 mmol/L (22-29); Chloride 115 mmol/L (96-108); Estimated Glomerular Filt Rate 36; Glucose Random 156 mg/dL (60-115); Potassium 4.3 mmol/L (3.3-5.1); Sodium 139 mmol/L (135-145); Total Protein 9.6 g/dL (6.5-8.0)
[2021-01-02 19:06] LABS: Troponin-I High Sensitivity 7.2 ng/L (<3.5-17.0)
[2021-01-02 19:16] VITALS: BP 145/84; PULSE 84; TEMP 36.6; O2SAT 98
--- NOTE | 2021-01-02 20:56 | ED_ITS ---
HPI - General Adult General Chief complaint: General Medical Stated complaint: dehydration Time Seen by Provider: 01/02/21 20:02 Source: patient Mode of arrival: ambulatory Limitations: no limitations History of Present Illness HPI narrative: Patient comes emergency room complaining of bilateral leg pain. Patient states that the leg pain has been ongoing for approximately 2 weeks, gradually getting worse. Patient went to see her primary care physician, patient states that it was suspected that the myalgias she is experiencing is secondary to atorvastatin. Labs were ordered. This afternoon, patient received a phone call from her PCP asking her to come to the emergency room, as the CPK was elevated and the creatinine was elevated as well. Patient states that she has not done any extraneous exercise, patient does go to cardiac rehab but states it has been at baseline and she has not had any pain from her exercises or any injuries. Patient's LFTs are also elevated. Patient denies any abdominal pain, no nausea vomiting or diarrhea. Related Data Home Medications Medication Instructions Recorded Confirmed albuterol sulfate 90 mcg/actuation 2 puff INHALATION QID PRN 09/10/20 12/16/20 aerosol inhaler aspirin 81 mg tablet,delayed 81 mg PO DAILY 09/23/20 12/16/20 release (Adult Low Dose Aspirin) metformin 500 mg tablet 500 mg PO BID 09/23/20 12/16/20 metoprolol succinate 25 mg 25 mg PO DAILY 09/23/20 12/16/20 tablet,extended release 24 hr ticagrelor 90 mg tablet 90 mg PO Q12H 09/23/20 12/16/20 atorvastatin 80 mg tablet 80 mg PO BEDTIME 09/25/20 12/16/20 tamsulosin 0.4 mg capsule 0.4 mg PO DAILY 09/25/20 12/16/20 Previous Rx's Medication Instructions Recorded allopurinol 100 mg tablet 100 mg PO DAILY 90 Days #90 tab 08/16/20 pyridoxine (vitamin B6) 100 mg 100 mg PO DAILY 90 Days #90 tab 08/16/20 tablet Allergies Allergy/AdvReac Type Severity Reaction Status Date / Time peach [PEACH] Allergy Intermediate DIFFICULTY Verified 01/02/21 17:41 BREATHING Review of Systems Review of Systems: Constitutional : No Weight loss, No Fever, No Chills, No Night Sweats, No Fatigue, No Malaise ENT/Mouth : No Hearing loss, No Ear Pain, No Nasal Congestion, No Sinus Pain, No Hoarseness, No sore throat, No Rhinorrhea, No Swallowing Difficulty Eyes: No Eye Pain, No Swelling, No Redness, No Foreign Body, No Discharge, No Vision Changes Cardiovascular : No Chest Pain, No SOB, No Dyspnea on Exertion, No Orthopnea, No Edema, No Palpitations Respiratory : No Cough, No Sputum, No Wheezing, No Smoke Exposure, No Dyspnea Gastrointestinal : No Nausea, No Vomiting, No Diarrhea, No Constipation, No abdominal Pain, No Hematochezia, No Melena Genitourinary : no irregular bleeding, No Dysuria, No Urinary Frequency, No Hematuria, No Urinary Incontinence, No Urgency, No Flank Pain, No Urinary Flow Changes, No Hesitancy Musculoskeletal : Complaining of lower extremity myalgias bilaterally for 2-3 weeks Skin : No Skin Lesions, No rash Neuro : No Weakness, No Numbness, No Paresthesias, No Loss of Consciousness, No Dizziness, No Headache Psych : No Anxiety/Panic, No Depression, No SI/HI/AH/VH, No Social Issues, Heme/Lymph: No Bruising, No Bleeding,No Lymphadenopathy Endocrine : No Polyuria, No Polydipsia, No Temperature Intolerance PMFSH Past Medical History Medical History Asthma Atherosclerotic cardiovascular disease Obesity Renal stones Urgency incontinence Surgical History H/O colonoscopy History of carpal tunnel release Hx laparoscopic cholecystectomy Hx of cataract extraction Hx of cystoscopy S/P cardiac catheterization Social History Social History (Updated 12/16/20 @ 09:36 by JOE Hanks) Alcohol intake: never Patient Tobacco Use Status: Never used Tobacco Use of substances other than those prescribed or required for medical reasons: No Advance Directives: No Advance Directives Information Provided: Yes Physical Exam Vital Signs: Vital Signs: Last Vital Signs Temp 98.8 F 01/03/21 00:05 Pulse 79 01/03/21 00:05 Resp 16 01/03/21 00:05 BP 181/96 H 01/03/21 00:05 Pulse Ox 98 01/03/21 00:05 Body Mass Index 34.9 Const: Other: Appearance: Alert. Oriented X3. No acute distress. Eyes: Pupils equal, round and reactive to light. ENT: Pharynx normal. Neck: Normal inspection. Neck supple. No lymph nodes noted. No crepitus CVS: Normal heart rate and rhythm. Pulses normal. Normal S1 and S2 Respiratory: No respiratory distress. Breath sounds normal. No Wheezing. No rales Abdomen: Soft and nontender. No rigidity. No distention. Negative Mazariegos sign Skin: Skin warm and dry. Normal skin color. Normal skin turgor. Extremities: Bilateral +2 nonpitting edema, No Lacerations. No Rash Neuro: Oriented X 3. No motor deficit. No sensory deficit. Moving all extermities. No slurred speech. Course Course Course Narrative: Patient's CPK slightly decreased. Creatinine improved. I discussed the patient with our hospitalist, patient will be admitted for observation and gentle hydration. Medical Decision Making Lab Data Result diagrams: 01/02/21 18:22 01/02/21 23:17 Labs: Lab Results 01/02/21 01/02/21 01/02/21 Range/Units 18:22 18:22 18:22 WBC 10.9 H (4.8-10.8) X10*3/uL RBC 4.19 L (4.20-5.50) X10*6/uL Hgb 13.4 (12.0-16.0) g/dl Hct 40.5 (37-47) % MCV 96.7 (80-98) fL MCH 32.0 (27.0-33.0) pg MCHC 33.1 (31.0-35.0) g/dl RDW 15.5 (11.0-16.0) % Plt Count 171 (160-400) X10*3/uL MPV 10.8 (9.4-12.3) fL Immature Gran % (Auto) 0.8 H (0.0-0.4) % Neut % (Auto) 64.5 (45-73) % Lymph % (Auto) 19.7 L (20-40) % [place] % (Auto) 9.4 (2-11) % Eos % (Auto) 4.8 H (0-4) % Baso % (Auto) 0.8 (0-2) % Lymph # (Auto) 2.1 (1.2-4.9) X10*3/uL [place] # (Auto) 1.0 (0.1-1.2) X10*3/uL Eos # (Auto) 0.5 H (0.0-0.4) X10*3/uL Baso # (Auto) 0.1 (0.0-0.2) X10*3/uL Abs Immat Gran (auto) 0.09 H (0.00-0.03) X10*3/uL Absolute Neuts (auto) 7.0 (2.0-8.3) X10*3/uL Absolute Nucleated RBC 0.000 (0.0-0.012) X10*3/uL Nucleated RBC % (auto) 0.0 (0.0-0.2) /100WBC Sodium 139 (135-145) mmol/L Potassium 4.3 D (3.3-5.1) mmol/L Chloride 115 H (96-108) mmol/L Carbon Dioxide 15 L (22-29) mmol/L Anion Gap 13 (12-20) BUN 39 H D (9-16) mg/dL Creatinine 1.45 H (0.5-1.4) mg/dL Estim Creat Clear Calc 37.0 Estimated GFR 36 Random Glucose 156 H (60-115) mg/dL Calcium 9.2 D (8.4-10.2) mg/dL Total Bilirubin 1.5 H (0.0-1.0) mg/dL Direct Bilirubin (0.0-0.5) mg/dL AST 498 H (5-31) U/L ALT 511 H (0-31) U/L Alkaline Phosphatase 123 H D (39-117) U/L Total Creatine Kinase 3967 H (26-140) U/L Troponin I High Sens (<3.5-17.0) ng/L Total Protein 9.6 H (6.5-8.0) g/dL Albumin 3.3 L (3.5-5.0) g/dL 01/02/21 01/02/21 Range/Units 18:22 23:17 WBC (4.8-10.8) X10*3/uL RBC (4.20-5.50) X10*6/uL Hgb (12.0-16.0) g/dl Hct (37-47) % MCV (80-98) fL MCH (27.0-33.0) pg MCHC (31.0-35.0) g/dl RDW (11.0-16.0) % Plt Count (160-400) X10*3/uL MPV (9.4-12.3) fL Immature Gran % (Auto) (0.0-0.4) % Neut % (Auto) (45-73) % Lymph % (Auto) (20-40) % [place] % (Auto) (2-11) % Eos % (Auto) (0-4) % Baso % (Auto) (0-2) % Lymph # (Auto) (1.2-4.9) X10*3/uL [place] # (Auto) (0.1-1.2) X10*3/uL Eos # (Auto) (0.0-0.4) X10*3/uL Baso # (Auto) (0.0-0.2) X10*3/uL Abs Immat Gran (auto) (0.00-0.03) X10*3/uL Absolute Neuts (auto) (2.0-8.3) X10*3/uL Absolute Nucleated RBC (0.0-0.012) X10*3/uL Nucleated RBC % (auto) (0.0-0.2) /100WBC Sodium 141 (135-145) mmol/L Potassium 5.0 (3.3-5.1) mmol/L Chloride 116 H (96-108) mmol/L Carbon Dioxide 19 L (22-29) mmol/L Anion Gap 11 L (12-20) BUN 39 H (9-16) mg/dL Creatinine 1.33 (0.5-1.4) mg/dL Estim Creat Clear Calc 40.3 Estimated GFR 40 Random Glucose 138 H (60-115) mg/dL Calcium 8.6 D (8.4-10.2) mg/dL Total Bilirubin 1.1 H (0.0-1.0) mg/dL Direct Bilirubin 0.5 (0.0-0.5) mg/dL AST 437 H (5-31) U/L ALT 442 H (0-31) U/L Alkaline Phosphatase 105 (39-117) U/L Total Creatine Kinase 3570 H (26-140) U/L Troponin I High Sens 7.2 (<3.5-17.0) ng/L Total Protein 8.4 H (6.5-8.0) g/dL Albumin 2.9 L (3.5-5.0) g/dL Discharge Plan Discharge Clinical Impression: Rhabdomyolysis Patient Disposition: Admitted As Inpatient Prescriptions: No Action atorvastatin 80 mg tablet 80 mg PO BEDTIME RF: 0 tamsulosin 0.4 mg capsule 0.4 mg PO DAILY RF: 0 albuterol sulfate 90 mcg/actuation Hfa Aerosol Inhaler 2 puff INHALATION QID PRN (Reason: Shortness Of Breath Or Wheezing) RF: 0 pyridoxine (vitamin B6) 100 mg tablet 100 mg PO DAILY 90 Days Qty: 90 RF: 1 allopurinol 100 mg tablet 100 mg PO DAILY 90 Days Qty: 90 RF: 1 metformin 500 mg tablet 500 mg PO BID RF: 0 metoprolol succinate 25 mg tablet extended release 24 hr 25 mg PO DAILY RF: 0 aspirin [Adult Low Dose Aspirin] 81 mg tablet,delayed release (DR/EC) 81 mg PO DAILY RF: 0 ticagrelor 90 mg tablet 90 mg PO Q12H RF: 0
[2021-01-02] MEDS: 0.9 % Sodium Chloride 1,000 ML 999 ML IVCONT (21:10)
[2021-01-02 22:10] VITALS: PULSE 81; RESP 26
[2021-01-02 23:05] VITALS: BP 135/72; PULSE 73; RESP 16; O2SAT 98
[2021-01-02 23:54] LABS: Alanine Aminotransferase 442 U/L (0-31); Albumin Level 2.9 g/dL (3.5-5.0); Alkaline Phosphatase 105 U/L (39-117); Anion Gap 11 (12-20); Aspartate Amino Transferase 437 U/L (5-31); Bilirubin Direct 0.5 mg/dL (0.0-0.5); Bilirubin Total 1.1 mg/dL (0.0-1.0); Blood Urea Nitrogen 39 mg/dL (9-16); Calcium 8.6 mg/dL (8.4-10.2); Carbon Dioxide 19 mmol/L (22-29); Chloride 116 mmol/L (96-108); Creatinine Clr Calc Pharmacy 40.3; Estimated Glomerular Filt Rate 40; Glucose Random 138 mg/dL (60-115); Sodium 141 mmol/L (135-145); Total Protein 8.4 g/dL (6.5-8.0)
[2021-01-03] VITALS (8 sets, daily range): BP systolic 141–181; BP diastolic 70–96; PULSE 73–82; RESP 15–18; TEMP 36.2–37.1; O2SAT 98–100
[2021-01-03 01:22] LABS: COVID-19 Test Negative (Negative); IDNOW Serial# 9DD0AD1C
[2021-01-03] MEDS: Lactated Ringers 1,000 ML 100 ML IVCONT ×3 (02:48→21:07)
--- NOTE | 2021-01-03 03:31 | PC.NURSE ---
Patient meets criteria for high fall risk due to history. She
--- NOTE | 2021-01-03 03:32 | PC.NURSE ---
Patient qualifies for high fall risk due to history of falls over the last 6 months. Fall risk precautions were all refused by patient . She is steady on her feet and was educated on safety and the importance of using call young with ambulation. 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
--- NOTE | 2021-01-03 05:45 | P.HPHOSP_ITS ---
History of Present Illness Date of Service: 01/03/21 Chief Complaint: muscle ache, abnormal labs 65-year-old female with past medical history of TN in September 27, status post stent, diabetes, and history of kidney stones presents to the hospital with complaints of abnormal labs. Patient reports that she is currently in cardiac rehab and is almost finishing her last sessions but started experiencing muscle aches in her legs for the past 2 weeks. The muscle aches progressed to weakness and she became so weak that she had difficulty transferring in and out of even her bathtub or even going up her steps at home. shes is having pain in her muscle with walking. Patient presented to her PCP, labs were done today, found to be abnormal as compared to 3 weeks ago and therefore patient was sent to the hospital. Patient reports that she has been started on statin since her diagnosis with coronary artery disease and stent in September and prior to that was never on statins. She denies having any chest pain, no shortness of breath, no abdominal pain nausea or vomiting, no diarrhea constipation, no urinary symptoms. She denies any weakness numbness or tingling, and no headache or change in vision. On arrival to the ED hemodynamically stable with no significant abnormal vitals Labs are significant for WBC count of 10.9, chloride of 115, BUN of 39, creatinine of 1.45 with a baseline around 0.93, total bili of 1.5, AST of 498, ALT of 511, alk-phos of 123, CPK of 3967, patient received fluids with some improvement in her numbers but will be admitted for further management. Review of Systems Review of Systems: Yes all other systems are reviewed and are negative [facility] Medical History Asthma Atherosclerotic cardiovascular disease Obesity Renal stones Urgency incontinence Surgical History H/O colonoscopy History of carpal tunnel release Hx laparoscopic cholecystectomy Hx of cataract extraction Hx of cystoscopy S/P cardiac catheterization Social History Alcohol intake: never Patient Tobacco Use Status: Never used Tobacco Use of substances other than those prescribed or required for medical reasons: No Advance Directives: No Advance Directives Information Provided: Yes Meds Allergies Allergy/AdvReac Type Severity Reaction Status Date / Time peach [PEACH] Allergy Intermediate DIFFICULTY Verified 01/02/21 17:41 BREATHING Active Medications: Current Medications Generic Name Dose Route Start Last Admin Trade Name Alysia PRN Reason Stop Dose Admin Heparin Sodium (Porcine) 5,000 unit 01/03/21 03:00 01/03/21 02:48 Heparin Sodium,Porcine 5,000 Unit/Ml Vial SUBCUT Not Given Q12H PATRICIA Lactated Ringer's 1,000 mls @ 100 mls/hr 01/03/21 02:14 01/03/21 02:48 Lr IVCONT 100 mls/hr .Q10H PATRICIA Administration Ondansetron HCl 4 mg 01/03/21 02:14 Ondansetron Hcl 4 Mg/2 Ml Vial IVPUSH Q8H PRN Nausea and Vomiting Sodium Chloride 3 ml 01/03/21 08:00 0.9 % Sodium Chloride Flush 3 Ml Syringe IVFLUSH QSHIFT [facility] Home Medications Medication Instructions Recorded Confirmed Last Taken Type albuterol sulfate 90 mcg/actuation 2 puff INHALATION QID PRN 09/10/20 12/16/20 Unknown History aerosol inhaler aspirin 81 mg tablet,delayed 81 mg PO DAILY 09/23/20 12/16/20 01/02/21 History release (Adult Low Dose Aspirin) 1 metformin 500 mg tablet 500 mg PO BID 09/23/20 12/16/20 01/02/21 History 1 metoprolol succinate 25 mg 25 mg PO DAILY 09/23/20 12/16/20 01/02/21 History tablet,extended release 24 hr 1 ticagrelor 90 mg tablet 90 mg PO Q12H 09/23/20 12/16/20 01/02/21 History 1 atorvastatin 80 mg tablet 80 mg PO BEDTIME 09/25/20 12/16/20 01/02/21 History Physical Exam Vital Signs and Narrative: Vital Signs: Last Vital Signs Temp 97.4 F 01/03/21 02:54 Pulse 82 01/03/21 02:54 Resp 16 01/03/21 02:54 BP 163/81 H 01/03/21 02:54 Pulse Ox 99 01/03/21 02:54 Body Mass Index 34.9 Const: General: cooperative and no acute distress Orientation/consciousness: patient oriented x3 Eyes: General: appearance normal, both eyes and all related structures Resp: Effort & Inspection: normal respiratory effort and able to speak in complete sentences Auscultation: clear to auscultation bilaterally Cardio: Rate: regular rate Rhythm: regular rhythm GI: Palpation (GI): Soft to palpation Auscultation: normal bowel sounds Skin: General skin exam: no rashes or lesions noted Neuro: General: patient oriented x3 Cognition (Neuro): normal cognition Extrem: Other: No tenderness on palpation General: Yes normal to inspection and Yes no pedal edema Results Labs CBC and Chem 7: 01/02/21 18:22 01/02/21 23:17 Labs: Laboratory Results - last 24 hr 01/02/21 01/02/21 01/02/21 18:22 18:22 18:22 MCV 96.7 MCH 32.0 MCHC 33.1 RDW 15.5 Plt Count 171 MPV 10.8 Immature Gran % (Auto) 0.8 H Neut % (Auto) 64.5 Lymph % (Auto) 19.7 L [place] % (Auto) 9.4 Eos % (Auto) 4.8 H Baso % (Auto) 0.8 Lymph # (Auto) 2.1 [place] # (Auto) 1.0 Eos # (Auto) 0.5 H Baso # (Auto) 0.1 Abs Immat Gran (auto) 0.09 H Absolute Neuts (auto) 7.0 Absolute Nucleated RBC 0.000 Nucleated RBC % (auto) 0.0 Anion Gap 13 Estim Creat Clear Calc 37.0 Estimated GFR 36 Random Glucose 156 H Calcium 9.2 D Total Bilirubin 1.5 H Direct Bilirubin AST 498 H ALT 511 H Alkaline Phosphatase 123 H D Total Creatine Kinase 3967 H Troponin I High Sens Total Protein 9.6 H Albumin 3.3 L COVID-19 (WEI) COVID-19 Clin Com 01/02/21 01/02/21 01/03/21 18:22 23:17 00:51 MCV MCH MCHC RDW Plt Count MPV Immature Gran % (Auto) Neut % (Auto) Lymph % (Auto) [place] % (Auto) Eos % (Auto) Baso % (Auto) Lymph # (Auto) [place] # (Auto) Eos # (Auto) Baso # (Auto) Abs Immat Gran (auto) Absolute Neuts (auto) Absolute Nucleated RBC Nucleated RBC % (auto) Anion Gap 11 L Estim Creat Clear Calc 40.3 Estimated GFR 40 Random Glucose 138 H Calcium 8.6 D Total Bilirubin 1.1 H Direct Bilirubin 0.5 AST 437 H ALT 442 H Alkaline Phosphatase 105 Total Creatine Kinase 3570 H Troponin I High Sens 7.2 Total Protein 8.4 H Albumin 2.9 L COVID-19 (WEI) Negative COVID-19 Clin Com See Note Assessment and Plan (1) Statin-induced rhabdomyolysis: Status: Acute (2) YOHANA (acute kidney injury): Status: Acute (3) Transaminitis: Status: Acute This is a 65-year-old female with past medical history of coronary artery disease sees status post TN and stent in September who presents to the hospital with complaints of muscle aches as well as abnormal labs found to have rhabdomyolysis YOHANA and transaminitis # statin induced rhabdomyolysis - will discontinue statin- patient on 80 mg, of atorvastat - start IV fluids - follow CPK and LFTs as well as BMP # YOHANA - secondary to rhabdomyolysis - no UTI - will start on IV fluids - follow-up BMP # transaminitis - most likely secondary to liver injury due to statin - discontinue statin - IV fluids - follow LFTs # history of TN - status post stent - continue aspirin, Brilinta # DM - hold metfomrin - start LDSSI - diabetic diet dvt ppx: Heparin subQ Quality Stroke Does the patient have a stroke diagnosis?: No VTE Prior VTE?: No VTE Risk Level:: Medical - moderate - high VTE Device Contraindication: Treatment Not Indicated VTE Drug Contraindication: N/A - Med Ordered
[2021-01-03 06:16] LABS: MANUAL DIFF FLAG NO
[2021-01-03 06:41] LABS: Basophils Absolute Auto 0.1 X10*3/uL (0.0-0.2); Basophils Percent Auto 0.8 % (0-2); Eosinophils Absolute Auto 0.4 X10*3/uL (0.0-0.4); Hematocrit 37.8 % (37-47); Hemoglobin 11.8 g/dl (12.0-16.0); Imm Gran Abs Auto 0.05 X10*3/uL (0.00-0.03); Imm Gran Pct Auto 0.6 % (0.0-0.4); Lymphocytes Absolute Auto 2.1 X10*3/uL (1.2-4.9); Lymphocytes Percent Auto 25.7 % (20-40); Mean Corpuscular HGB Conc 31.2 g/dl (31.0-35.0); Mean Corpuscular Hemoglobin 30.6 pg (27.0-33.0); Mean Corpuscular Volume 97.9 fL (80-98); Mean Platelet Volume 10.9 fL (9.4-12.3); Monocytes Absolute Auto 0.9 X10*3/uL (0.1-1.2); Monocytes Percent Auto 11.1 % (2-11); Neutrophils Absolute Auto 4.5 X10*3/uL (2.0-8.3); Neutrophils Percent Auto 56.8 % (45-73); Platelet Count 138 X10*3/uL (160-400); Red Blood Count 3.86 X10*6/uL (4.20-5.50); Red Cell Distribution Width 15.2 % (11.0-16.0)
[2021-01-03 07:19] LABS: Alanine Aminotransferase 416 U/L (0-31); Albumin Level 2.8 g/dL (3.5-5.0); Alkaline Phosphatase 104 U/L (39-117); Anion Gap 9 (12-20); Aspartate Amino Transferase 405 U/L (5-31); Bilirubin Total 0.9 mg/dL (0.0-1.0); Blood Urea Nitrogen 36 mg/dL (9-16); Calcium 8.5 mg/dL (8.4-10.2); Carbon Dioxide 19 mmol/L (22-29); Chloride 116 mmol/L (96-108); Creatinine Clr Calc Pharmacy 43.9; Estimated Glomerular Filt Rate 44; Glucose Random 123 mg/dL (60-115); Potassium 4.2 mmol/L (3.3-5.1); Sodium 140 mmol/L (135-145)
--- NOTE | 2021-01-03 10:56 | PM.EVENT ---
Event Note Date of Service: 01/03/21 Event Note: Day Team note in brief S Seen and examined this AM feeling a bit better in regards to her leg soreness O vitals - last documented gen - NAD CVS - S1S2 Lungs - clear Abd - soft nt Ext - no edema A/P 65 yo F admitted for suspected statin induce rhabdo and liver injury. LFTS and Rhabdo improved, still persists, will continue IVF continue DAPT d/c statin upon discharge remainder per H&P
[2021-01-03] MEDS: Aspirin Enteric Coated 81 MG TABLET.DR PO (11:24)
--- NOTE | 2021-01-03 12:30 | MHC.CM.PN ---
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 D/C PLAN: HOME NO SERVICES, PT TO ARRANGE TRANSPORTATION HCP: VILMA BENNETT [phone] ALTERNATE: BEN TAPIA [phone]
[2021-01-03] MEDS: Metoprolol Succinate ER 25 MG TAB.ER.24H PO (17:47)
[2021-01-03] MEDS: Ticagrelor 90 MG TABLET PO (21:06)
[2021-01-04 04:00] VITALS: BP 152/64; PULSE 65; RESP 18; TEMP 36.4; O2SAT 99
[2021-01-04 07:15] VITALS: BP 148/67; PULSE 69; RESP 17; TEMP 36.6; O2SAT 99
[2021-01-04] MEDS: Ticagrelor 90 MG TABLET PO (07:33)
[2021-01-04] MEDS: Lactated Ringers 1,000 ML 100 ML IVCONT (07:34)
[2021-01-04 07:51] LABS: Alanine Aminotransferase 418 U/L (0-31); Alkaline Phosphatase 110 U/L (39-117); Anion Gap 11 (12-20); Aspartate Amino Transferase 388 U/L (5-31); Bilirubin Direct 0.7 mg/dL (0.0-0.5); Bilirubin Total 1.1 mg/dL (0.0-1.0); Blood Urea Nitrogen 29 mg/dL (9-16); Calcium 9.1 mg/dL (8.4-10.2); Carbon Dioxide 20 mmol/L (22-29); Chloride 113 mmol/L (96-108); Estimated Glomerular Filt Rate 54; Glucose Random 98 mg/dL (60-115); Potassium 4.5 mmol/L (3.3-5.1); Sodium 139 mmol/L (135-145); Total Protein 8.7 g/dL (6.5-8.0)
[2021-01-04] MEDS: Aspirin Enteric Coated 81 MG TABLET.DR PO (08:03)
--- NOTE | 2021-01-04 10:08 | P.DS_ITS ---
DS: Providers Provider Date of Service: 01/04/21 Date of admission: 01/03/21 00:25 Primary care physician: Ania Browning MD DS: Diagnosis Discharge Diagnosis (1) Statin-induced rhabdomyolysis: Status: Acute (2) YOHANA (acute kidney injury): Status: Acute (3) Transaminitis: Status: Acute DS: Medications Discharge Medications Home Medications: Home Medications Medication Instructions Recorded Confirmed albuterol sulfate 90 mcg/actuation 2 puff INHALATION QID PRN 09/10/20 01/03/21 aerosol inhaler aspirin 81 mg tablet,delayed 81 mg PO DAILY 09/23/20 01/03/21 release (Adult Low Dose Aspirin) metformin 500 mg tablet 500 mg PO BID 09/23/20 01/03/21 metoprolol succinate 25 mg 25 mg PO DAILY@1800 09/23/20 01/03/21 tablet,extended release 24 hr ticagrelor 90 mg tablet 90 mg PO Q12H 09/23/20 01/03/21 DS: Summary Status at Discharge Cognitive/behavioral status at discharge: 65-year-old female with past medical history of NH in September 27, status post stent, diabetes, and history of kidney stones presents to the hospital with complaints of abnormal labs.? Patient reports that she is currently in cardiac rehab and is almost finishing her last sessions but started experiencing muscle aches in her legs for the past 2 weeks.? The muscle aches progressed to weakness and she became so weak that she had difficulty transferring in and out of even her bathtub or even going up her steps at home. shes is having pain in her muscle with walking. Patient presented to her PCP, labs were done today, found to be abnormal as compared to 3 weeks ago and therefore patient was sent to the hospital.? Patient reports that she has been started on statin since her diagnosis with coronary artery disease and stent in September and prior to that was never on statins.? She denies having any chest pain, no shortness of breath, no abdominal pain nausea or vomiting, no diarrhea constipation, no urinary symptoms.? She denies any weakness numbness or tingling, and no headache or change in vision. On arrival to the ED hemodynamically stable with no significant abnormal vitals Labs are significant for WBC count of 10.9, chloride of 115, BUN of 39, creatinine of 1.45 with a baseline around 0.93, total bili of 1.5, AST of 498, ALT of 511, alk-phos of 123, CPK of 3967, patient received fluids with some improvement in her numbers but will be admitted for further management. Patient was admitted for suspected statin induced rhabdomyolysis, transaminitis and YOHANA Her Lipitor was discontinued. She was treated with IV fluid. Her muscle aches improved, renal function improved to 10.3, CPK dropped from 3570 to 2168. Liver transaminases are still elevated but trending down. She is now stable for discharge home. She is instructed to repeat her liver function tests in 1 week. She should stop taking her Lipitor. She should call to schedule follow-up appointment with the recreation attendant in a few weeks and she will likely need alternative statin due to underlying CAD. Time Spent with Patient Time attestation: Total time spent providing and/or coordinating discharge services: Discharge coordination time: Greater than 30 minutes Quality: Stroke Does the patient have a stroke diagnosis?: No Physical Exam Vital Signs: Vital Signs: Last Vital Signs Temp 97.9 F 01/04/21 07:15 Pulse 69 01/04/21 07:15 Resp 17 01/04/21 07:15 BP 148/67 H 01/04/21 07:15 Pulse Ox 99 01/04/21 07:15 Body Mass Index 34.9 Const: Nutritional Appearance: well nourished Orientation/consciousness: patient oriented x3 HENMT: Head: Yes normocephalic and Yes atraumatic Eyes: Sclerae: sclerae normal Chest: Chest palpation & inspection: normal inspection of the chest Resp: Effort & Inspection: normal respiratory effort and no respiratory distress Cardio: Rate: regular rate Rhythm: regular rhythm GI: Palpation (GI): Soft to palpation and nontender Neuro: General: patient oriented x3 Cranial nerves: Yes CN's II-XII intact bilaterally and Yes Bilaterally intact EOM present DS: Data Data Completed and Pending Labs on day of discharge: Laboratory Results - last 24 hr 01/04/21 06:29 Sodium 139 Potassium 4.5 Chloride 113 H Carbon Dioxide 20 L Anion Gap 11 L BUN 29 H Creatinine 1.03 Estim Creat Clear Calc 52.0 Estimated GFR 54 Random Glucose 98 Calcium 9.1 D Total Bilirubin 1.1 H Direct Bilirubin 0.7 H AST 388 H ALT 418 H Alkaline Phosphatase 110 Total Creatine Kinase 2168 H D Total Protein 8.7 H Albumin 3.0 L Discharge Plan Discharge Patient Disposition: Home, Self-Care Discharge Diagnosis: YOHANA Rhabdomyolysis transaminitis Referrals: Ania Browning MD [Primary Care Provider] - 1 Week Discharge Medications: Continued albuterol sulfate 90 mcg/actuation Hfa Aerosol Inhaler 2 puff INHALATION QID PRN (Reason: Shortness Of Breath Or Wheezing) RF: 0 metformin 500 mg tablet 500 mg PO BID RF: 0 metoprolol succinate 25 mg tablet extended release 24 hr 25 mg PO DAILY@1800 RF: 0 aspirin [Adult Low Dose Aspirin] 81 mg tablet,delayed release (DR/EC) 81 mg PO DAILY RF: 0 ticagrelor 90 mg tablet 90 mg PO Q12H RF: 0 Discontinued atorvastatin 80 mg tablet 80 mg PO DAILY RF: 0 Discharge Orders: Discharge Order (Routine); Ordered 01/04/21 Ordered By: Lindsay Ames Activity on Discharge: As tolerated Stand Alone Forms: Patient Portal Discharge page Other Ambulatory Orders: Liver Panel (Routine) Timeframe: 1 Week Facility: [facility] - Location: Laboratory Ordered By: Lindsay Ames Care Plan Goals: See below Health Concerns: YOHANA Transaminitis Rhabdomyolysis Plan of Treatment: You kidney function levels were elevated and have now improved Your CPK was elevated, levels are trending down Your liver function levels are elevated but have been trending down. You should repeat liver function tests in 1 week. Stop taking atorvastatin. You will likely need to be started on alternative statin in the future, call to schedule follow up appointment with the recreation attendant. Assessment: See discharge summary
--- NOTE | 2021-01-04 11:07 | MHC.CM.PN ---
PT CLEARED TO DC HOME TODAY WITH NO SERVICES
== END 2021-01-04 10:41 | disposition home or self-care (01) | DRG 351 ==
LOC: HO.ED 01-03 00:26 → HO.S3 01-03 07:38 → HO.EDOVER 01-03 08:10 → HO.S3 01-03 08:10
PROVIDERS: Family Medicine; Admitting Provider Internal Medicine; Emergency Provider Emergency Medicine; PCP Pediatrics; Visit Provider Internal Medicine
DX: M62.82 Rhabdomyolysis (principal); N17.9 Acute kidney failure, unspecified; I25.10 Atherosclerotic heart disease of native coronary artery without angina pectoris; I25.2 Old myocardial infarction; T46.6X5A Adverse effect of antihyperlipidemic and antiarteriosclerotic drugs, initial encounter; E11.9 Type 2 diabetes mellitus without complications; Y92.9 Unspecified place or not applicable; N14.1 Nephropathy induced by other drugs, medicaments and biological substances; Z20.822 Contact with and (suspected) exposure to COVID-19; Z79.82 Long term (current) use of aspirin; Z79.84 Long term (current) use of oral hypoglycemic drugs; Z79.899 Other long term (current) drug therapy
CPT/HCPCS: 36415; 80048; 80053; 80076; 82550; 84484; 85025; 87635; 93005; 99285

== ENCOUNTER 2021-01-08 08:12 | Outpatient (REF) | payer OTHER, SELFPAY ==
[2021-01-08 09:43] LABS: Alanine Aminotransferase 302 U/L (0-31); Albumin Level 3.2 g/dL (3.5-5.0); Alkaline Phosphatase 98 U/L (39-117); Aspartate Amino Transferase 212 U/L (5-31); Blood Urea Nitrogen 29 mg/dL (9-16); Estimated Glomerular Filt Rate 53; Glucose Random 118 mg/dL (60-115)
[2021-01-08 09:54] LABS: Anion Gap 15 (12-20); Calcium 9.2 mg/dL (8.4-10.2); Carbon Dioxide 21 mmol/L (22-29); Chloride 107 mmol/L (96-108); Potassium 4.2 mmol/L (3.3-5.1); Sodium 139 mmol/L (135-145)
== END 2021-01-08 08:13 | disposition home or self-care (01) ==
LOC: HO.LAB 08:12
PROVIDERS: PCP Pediatrics; Visit Provider Internal Medicine
DX: Z01.810 Encounter for preprocedural cardiovascular examination (principal); I25.10 Atherosclerotic heart disease of native coronary artery without angina pectoris; I21.4 Non-ST elevation (NSTEMI) myocardial infarction; E11.8 Type 2 diabetes mellitus with unspecified complications; M62.82 Rhabdomyolysis; T46.6X5A Adverse effect of antihyperlipidemic and antiarteriosclerotic drugs, initial encounter
CPT/HCPCS: 36415; 80053; 82550

== ENCOUNTER 2021-02-03 08:21 | Outpatient (REF) | payer OTHER, SELFPAY ==
--- NOTE | ~2021-02-03 | US_ITS ---
EXAMINATION: US RETROPERITONEAL LIMITED (RENAL ONLY) CLINICAL INFORMATION: Calculus of kidney. COMPARISON: Renal ultrasound 08/14/2020 and 07/01/2020. X-ray abdomen KUB 07/24/2020. CT abdomen and pelvis 03/23/2018. TECHNIQUE: Real-time imaging of the kidneys. FINDINGS: RIGHT KIDNEY: 9.9 x 5.2 x 5.8 cm (SAG x AP x TRV). The kidney is normal in size, contour, and echogenicity. Kidneys mildly rotated with cortical thinning in the lower pole No focal parenchymal lesions or hydronephrosis. There is an echogenic stone mid to lower pole measuring 0.35 x 0.22 x 0.34 cm. LEFT KIDNEY: 12.6 x 5.8 x 4.6 cm (SAG x AP x TRV). The kidney is normal in size, contour, and echogenicity. Renal cortical thickness is normal. No focal parenchymal lesions or hydronephrosis. There is an echogenic stone midpole measuring 1.5 x 1.0 x 0.7 cm. US/US renal BI IMPRESSION: Echogenic stone mid to lower pole right kidney and midpole left kidney without caliectasis. Mild cortical thinning lower pole right kidney.
== END 2021-02-03 08:22 | disposition home or self-care (01) ==
LOC: HO.US 08:21
PROVIDERS: Visit Provider Urology
DX: N20.0 Calculus of kidney (principal)
CPT/HCPCS: 76775

== ENCOUNTER → 2021-02-11 08:30 | Outpatient (BNVA) | payer OTHER, SELFPAY | PROVIDERS: PCP Pediatrics; Visit Provider Internal Medicine ==

== ENCOUNTER 2021-02-12 11:48 | Outpatient (REF) | payer OTHER, SELFPAY ==
[2021-02-12 14:54] LABS: Alanine Aminotransferase 50 U/L (0-31); Albumin Level 3.4 g/dL (3.5-5.0); Alkaline Phosphatase 73 U/L (39-117); Aspartate Amino Transferase 57 U/L (5-31); Bilirubin Direct 0.5 mg/dL (0.0-0.5); Bilirubin Total 0.9 mg/dL (0.0-1.0); Cholesterol 172 mg/dL; HDL Cholesterol 47 mg/dL; LDL Cholesterol Calculated 105 mg/dl; Total Protein 8.5 g/dL (6.5-8.0); Triglycerides 102 mg/dL
== END 2021-02-12 11:49 | disposition home or self-care (01) ==
LOC: HO.WFDLDS 11:48
PROVIDERS: PCP Pediatrics; Visit Provider Internal Medicine
DX: M62.82 Rhabdomyolysis (principal); T46.6X5A Adverse effect of antihyperlipidemic and antiarteriosclerotic drugs, initial encounter; I25.10 Atherosclerotic heart disease of native coronary artery without angina pectoris
CPT/HCPCS: 36415; 80061; 80076; 82550

== ENCOUNTER → 2021-06-16 08:14 | Outpatient (BNVA) | payer OTHER, SELFPAY | PROVIDERS: PCP Pediatrics; Visit Provider Internal Medicine ==

== ENCOUNTER 2021-07-21 08:53 | Outpatient (REF) | payer OTHER, SELFPAY ==
--- NOTE | ~2021-07-21 | MM_ITS ---
EXAMINATION: MM DIAGNOSTIC DIGITAL BREAST TOMOSYNTHESIS, BILATERAL CLINICAL INFORMATION: Due for yearly. Prior stereotactic biopsy x2 for calcifications posterior lower right breast, 03/08/2019 and 04/18/2019. Follow-up residual calcifications. No known family history breast cancer. The lifetime risk of breast cancer based on the Tyrer-Cuzick Model is 5%. COMPARISON: Mammography: 07/19/2020, 12/21/2019, 04/18/2019, 04/10/2019, 03/08/2019, 03/06/2019, 02/28/2019 (BI-RADS 0). TECHNIQUE: Digital breast tomosynthesis is performed in both the craniocaudal and mediolateral oblique views along with computer-aided detection (CAD). Synthesized 2D images are generated from the tomosynthesis. Additional views are obtained: Magnification right CC x2, magnification right ML x2. FINDINGS: The breasts are almost entirely fatty (ACR BI-RADS breast composition Category a). Background stromal and fibroglandular densities are stable. There is no interval mass or architectural abnormality or developing density. There are 2 biopsy clip markers again seen posterior 8:00 right breast. Fine residual calcifications are similar to prior diagnostic exams. There are no significant changes. The axilla and skin contours are unremarkable. Results are provided to the patient at time of visit by the technologist. MM/MM tomosynthesis diagnostic BI IMPRESSION: No significant changes from prior studies. Residual fine calcifications posterior right breast similar to prior diagnostic exams. ASSESSMENT: BI-RADS 2: Benign RECOMMENDATION: Routine annual mammography screening. This patient's information was entered into a reminder system with a target due date for their next mammogram.
== END 2021-07-21 08:54 | disposition home or self-care (01) ==
LOC: HO.MAMMO 08:53
PROVIDERS: PCP Pediatrics; Visit Provider Pediatrics
DX: R92.8 Other abnormal and inconclusive findings on diagnostic imaging of breast (principal)
CPT/HCPCS: 77062; 77066

== ENCOUNTER 2021-10-22 18:15 | Emergency (ER) | payer MEDICARE, SELFPAY ==
--- NOTE | 2021-10-22 18:28 | ED.GENADULT ---
HPI - General Adult General Chief complaint: Skin/Abscess/Foreign Body Stated complaint: choked while eating Time Seen by Provider: 10/22/21 18:27 Source: patient Mode of arrival: ambulatory Limitations: no limitations History of Present Illness HPI narrative: 66-year-old female presents with foreign body sensation in throat after eating shrimp. Patient tells me she was eating dinner, she was having fish which she was able to swallow just fine and then she started eating shrimp in choking. Patient tells me that this has happened to her before she is followed by GI specialist they wanted to do some sort of procedure for esophageal strictures however she tells me that she was never cleared by Cardiology. She reports that she feels a foreign body around her sternum or throat . Patient denies chest pain, shortness of breath, nausea, vomiting, fevers, chills, abdominal pain. Relieving factors: none Exacerbating factors: none Associated symptoms: denies other symptoms Related Data Home Medications Medication Instructions Recorded Confirmed albuterol sulfate 90 mcg/actuation 2 puff inhalation QID PRN 09/10/20 06/16/21 aerosol inhaler Shortness Of Breath Or Wheezing aspirin 81 mg tablet,delayed 81 mg PO DAILY 09/23/20 06/16/21 release (Adult Low Dose Aspirin) metformin 500 mg tablet 500 mg PO BID 09/23/20 06/16/21 ticagrelor 90 mg tablet 90 mg PO Q12H 09/23/20 06/16/21 atorvastatin 80 mg tablet 80 mg PO BEDTIME 06/16/21 06/16/21 Allergies Allergy/AdvReac Type Severity Reaction Status Date / Time peach [PEACH] Allergy Intermediate DIFFICULTY Verified 02/11/21 08:38 BREATHING Review of Systems Review of Systems: Constitutional : No Weight loss, No Fever, No Chills, No Fatigue, No Malaise ENT/Mouth : No sore throat, No Rhinorrhea, + foreign body in throat. Eyes: No Eye Pain, No Swelling, No Redness Cardiovascular : No Chest Pain, No SOB, No Dyspnea on Exertion, No Orthopnea, No Edema, No Palpitations Respiratory : No Cough, No Sputum, No Wheezing Gastrointestinal : No Nausea, No Vomiting, No Diarrhea, No Constipation, No abdominal Pain, No Hematochezia, No Melena Genitourinary : No Dysuria, No Urinary Frequency, No Hematuria, Musculoskeletal : No joint pain, No Myalgias, No Joint Swelling Skin : No Skin Lesions, No rash Neuro : No Weakness, No Numbness, No Dizziness, No Headache Psych : No Anxiety/Panic, No Depression All other systems reviewed and are negative Yes all other systems are reviewed and are negative [facility] Past Medical History Attestation statement: The following information was validated with the patient. Source: old records reviewed and nursing notes reviewed Medical History Asthma Obesity Surgical History H/O colonoscopy History of carpal tunnel release Hx laparoscopic cholecystectomy Hx of cataract extraction Hx of cystoscopy Family History Family History Father No problems noted. Mother No problems noted. Social History Social History Alcohol intake: never Patient Tobacco Use Status: Never used Tobacco Advance Directives: No Advance Directives Information Provided: No service: No Current occupational status: employed Physical Exam ED Vital Signs: Vital Signs - 24 hr 10/22/21 18:33 Temperature 98.8 F Pulse Rate 98 Respiratory Rate 16 Blood Pressure 163/89 H Pulse Oximetry 97 Oxygen Delivery Method Room Air BMI result Body Mass Index 32.5 VSS Appearance: Alert.? Oriented X3.? No acute distress.? Head: Normocephalic, atraumatic, no step-offs or deformities Eyes: Pupils equal, round and reactive to light.? ENT: Pharynx normal.? Neck: Normal inspection.? Neck supple.? CVS: Normal heart rate and rhythm.? Pulses normal.? Respiratory: No respiratory distress.? Breath sounds normal.? Abdomen: Soft and nontender.? Skin: Skin warm and dry.? Normal skin color.? Normal skin turgor.? Extremities: No lower extremity edema.? No calf ttp. 5/5 strength to bilateral upper and lower extremities Back: No midline tenderness, no C-spine tenderness, full range of motion, no CVA tenderness bilaterally Neuro: Oriented X 3.? No motor deficit.? No sensory deficit. CN 2-12 intact Course Reevaluation(s) Reevaluation #1: Patient now states she does not feel the foreign body in her throat. She is able to tolerate p.o. fluids. She states she feels much better. Will monitor her for a little while. Plan is to discharge home with GI follow-up. Time: 18:37 Reevaluation #2: Patient continues to feel well, tolerating p.o. fluids well. Educated patient on plan, diagnosis. Educated her to cut her food up a small as possible or to try a pureed diet until she is evaluated by GI. I told her she would likely require an endoscopy in the future to further evaluate this issue. At this time I feel comfortable discharge with prompt GI follow-up. Time: 19:01 Medical Decision Making MDM Narrative Medical decision making narrative: 1832 66 yo f presents with foreign body sensation in throat times 30 minutes. Physical examination patient trying dry heaving. Regular rate and rhythm. Lungs clear. Abdomen soft nontender nondistended. Patient is speaking in full sentences, neuro exam is nonfocal. Plan at this time is to have the patient swish with tima cydney, and try to swallow, p.o. challenge. Medical Records Medical records reviewed: Yes I reviewed the patient's medical records. Lab Data Lab results reviewed: Yes I reviewed the patient's lab results. Critical Care Time Critical Care Time Critical Care Time: No Discharge Plan Discharge Clinical Impression: Foreign body sensation in throat Patient Disposition: Home, Self-Care Additional Instructions: Take your medications as prescribed. If you were prescribed antibiotics today, it is important that you take your medication to their entirety, do not skip any doses, do not finish them early. Follow-up with your primary care provider this week. Please follow-up with GI as soon as possible preferably within the next 1-3 days. Return to the emergency department with new or worsening symptoms. Such as fevers, chills, chest pain, shortness of breath, nausea, vomiting, dizziness, headache, vision changes, lethargy, difficulty speaking, difficulty call controlling your oral secretions. In case of emergency call 911 Please make sure your cutting appear food into very small pieces. A small as you can possibly make them. You will likely require an upper endoscopy to further evaluate this issue Prescriptions: No Action albuterol sulfate 90 mcg/actuation Hfa Aerosol Inhaler 2 puff INHALATION QID PRN (Reason: Shortness Of Breath Or Wheezing) metformin 500 mg tablet 500 mg PO BID aspirin [Adult Low Dose Aspirin] 81 mg tablet,delayed release (DR/EC) 81 mg PO DAILY ticagrelor 90 mg tablet 90 mg PO Q12H atorvastatin 80 mg tablet 80 mg PO BEDTIME Referrals: ED Physician,Christoph [Physician] - 2 days Javier García [Physician] - 3 days Stand Alone Forms: Work/School Release
[2021-10-22 18:33] VITALS: BP 163/89; BP 167/82; PULSE 98; RESP 16; TEMP 37.1; O2SAT 96; O2SAT 97; BMI 32.5
--- NOTE | 2021-10-22 19:34 | PC.NURSE ---
this RN had pt contact only at discharge, per provider pt stable for d.c, d.c instructions gone over with pt and pt verablized understanding.
== END 2021-10-22 19:35 | disposition home or self-care (01) ==
PROVIDERS: Emergency Provider Internal Medicine; PCP Pediatrics
DX: R09.89 Other specified symptoms and signs involving the circulatory and respiratory systems (principal); J45.909 Unspecified asthma, uncomplicated
CPT/HCPCS: 99282

== ENCOUNTER 2022-02-09 06:22 | Day surgery (SDC) | payer OTHER, SELFPAY ==
[2022-02-03 13:25] VITALS: BMI 30.2
[2022-02-03 14:06] VITALS: BMI 32.5
--- NOTE | 2022-02-06 09:08 | MHC.SHP ---
Pre-Procedural Eval Section A Date of Service: 02/06/22 The patient is an INPATIENT: No Changes since office visit: No Cold of Flu in the past 2 weeks, No New Medical Problems, No Changes in Medication and No Patient answered all questions The History & Physical has been completed within 30 days and I have reviewed it.: Yes Section B Chief Complaint: Age-related nuclear cataract, right eye Allergies: Allergies Allergy/AdvReac Type Severity Reaction Status Date / Time peach [PEACH] Allergy Intermediate DIFFICULTY Verified 02/11/21 08:38 BREATHING Plan Diagnosis/Plan: Unchanged I have reviewed the history and physical and performed a pertinent physical examination on my patient. No changes have occurred unless specified.
--- NOTE | 2022-02-06 09:38 | HO.ANESPROP2 ---
Documented by User: Elva Maldonado NP 02/06/22 09:40 HPI - Anesthesia Eval Consult details Narrative: 66yo F for Right Cataract Extraction IOL Insertion PCP deferred to cardiology, cardiac clears at low risk No previous cataract on record PMF Active Problems Active Problems: All Active Problems (Updated 01/16/22 @ 08:16 by Sara Shetty RN) CAD (coronary artery disease) (Acute) Type 2 diabetes mellitus with unspecified complications (Acute) Statin-induced rhabdomyolysis (Acute) Transaminitis (Acute) Preoperative cardiovascular examination (Acute) Atherosclerotic cardiovascular disease (Acute) S/P cardiac catheterization (Acute) Urgency incontinence (Acute) Renal stones (Acute) Past Medical History Medical History Asthma Atherosclerotic cardiovascular disease CAD (coronary artery disease) Diabetes Obesity Renal stones Rhabdomyolysis Urgency incontinence Family History Family History Father No problems noted. Mother No problems noted. Surgical History Surgical History H/O colonoscopy History of carpal tunnel release Hx laparoscopic cholecystectomy Hx of cataract extraction Hx of cystoscopy Hx of lithotripsy S/P cardiac catheterization Social History Social History Alcohol intake: never Patient Tobacco Use Status: Never used Tobacco Are you DNR?: No Advance Directives: No Advance Directives Information Provided: Yes service: No Current occupational status: employed Meds Allergies Allergy/AdvReac Type Severity Reaction Status Date / Time peach [PEACH] Allergy Intermediate DIFFICULTY Verified 02/11/21 08:38 BREATHING Home Medications Medication Instructions Recorded Confirmed Last Taken Type albuterol sulfate 90 mcg/actuation 2 puff inhalation QID PRN 09/10/20 02/03/22 Unknown History aerosol inhaler Shortness Of Breath Or Wheezing aspirin 81 mg tablet,delayed 81 mg PO DAILY 09/23/20 02/03/22 02/09/22 History release (Adult Low Dose Aspirin) metformin 500 mg tablet 500 mg PO BID 09/23/20 02/03/22 01/02/21 History 1 atorvastatin 80 mg tablet 80 mg PO BEDTIME 02/07/22 09/27/22 Unknown History Exam Exam Date and Time: February 06, 2022 0938 Height,Weight and Vital Signs: Height 5 ft Weight 75.75 kg Assessment and Plan Assessment Anesthesia Assessment: Chart Reviewed Documented by User: Debbie Isaac MD 02/09/22 08:45 [facility] Active Problems Active Problems: All Active Problems (Updated 01/16/22 @ 08:16 by Sara Shetty RN) CAD (coronary artery disease) (Acute). Denies recent chest pain Type 2 diabetes mellitus with unspecified complications (Acute) Statin-induced rhabdomyolysis (Acute) Transaminitis (Acute) Preoperative cardiovascular examination (Acute) Atherosclerotic cardiovascular disease (Acute) S/P cardiac catheterization (Acute) Urgency incontinence (Acute) Renal stones (Acute) Took aspirin this am Past Medical History Medical History Asthma Atherosclerotic cardiovascular disease CAD (coronary artery disease) Diabetes Obesity Renal stones Rhabdomyolysis Urgency incontinence Family History Family History Father No problems noted. Mother No problems noted. Family history of problems with anesthesia: No Surgical History Surgical History H/O colonoscopy History of carpal tunnel release Hx laparoscopic cholecystectomy Hx of cataract extraction Hx of cystoscopy Hx of lithotripsy S/P cardiac catheterization History of Problems with Anesthesia: No Social History Social History Alcohol intake: never Patient Tobacco Use Status: Never used Tobacco Are you DNR?: No Advance Directives: No Advance Directives Information Provided: Yes service: No Current occupational status: employed Meds Allergies Allergy/AdvReac Type Severity Reaction Status Date / Time peach [PEACH] Allergy Intermediate DIFFICULTY Verified 02/11/21 08:38 BREATHING Home Medications Medication Instructions Recorded Confirmed Last Taken Type albuterol sulfate 90 mcg/actuation 2 puff inhalation QID PRN 05/04/21 09/27/22 Unknown History aerosol inhaler Shortness Of Breath Or Wheezing aspirin 81 mg tablet,delayed 81 mg PO DAILY 09/23/20 02/03/22 02/09/22 History release (Adult Low Dose Aspirin) metformin 500 mg tablet 500 mg PO BID 09/23/20 02/03/22 01/02/21 History 1 atorvastatin 80 mg tablet 80 mg PO BEDTIME 06/16/21 02/03/22 Unknown History Exam Height,Weight and Vital Signs: Height 5 ft Weight 75.75 kg Vital Signs Temp Pulse Resp BP Pulse Ox O2 Del Method 02/09/22 08:11 97.3 F 78 17 161/97 H 97 Room Air Pertinent Lab Results Pertinent Lab Results: Lab Results 02/09/22 Range/Units 08:19 POC Glucose 102 (60-115) mg/dL Airway Mallampati Class: II TM Dist: >3cm Neck ROM: Full Loose/Missing/Broken Teeth: Yes (Many broken, some missing) Heart: RRR Lungs: CTAB Assessment and Plan Assessment Anesthesia Assessment: Anesthesia Plan Discussed Final Anesthetic Review Family History of Problems with Anesthesia: No History of Problems with Anesthesia: No NPO: Yes ASA Class: III Final Preanesthetic Review: No Changes in Pt Med Stat, Meds/Allgs Chart Reviewed, Consent Obtained/Reviewed and Anes Risks/Benef Reviewed Patient Risk: Intermediate Procedure Risk: Low Assessment/Block/Sedation in SS: Assess/Block/Sedation-SS Anesthetic Plan Anesthetic Plan: MAC: Disposition: Standard PACU
[2022-02-09 08:11] VITALS: BP 161/97; PULSE 78; RESP 17; TEMP 36.3; O2SAT 97
[2022-02-09 08:23] LABS: Glucose, Whole Blood 102 mg/dL (60-115)
[2022-02-09] MEDS: Cyclopentolate 1 % Ophth Sol 2 ML DRPBTL 1 DROP EYE-RIGHT ×3 (08:26→08:29)
[2022-02-09] MEDS: Tetracaine HCl/PF 0.5% Oph Sol 4 ML DROPS 1 DROP EYE-RIGHT (08:26)
[2022-02-09] MEDS: Tropicamide 1 % Ophth Sol 3 ML BTL 1 DROP EYE-RIGHT ×3 (08:26→08:30)
[2022-02-09] MEDS: Lactated Ringers 500 ML 50 ML IV (08:26)
[2022-02-09] MEDS: Phenylephrine HCL 2.5% Oph SoL 2 ML BOTTLE 1 DROP EYE-RIGHT ×3 (08:27→08:29)
--- NOTE | 2022-02-09 09:29 | HO.PNOPHT ---
Ophthalmology Procedure Procedure Date of Service: 02/09/22 Ophthalmology Viscoelastic: Healon Duet Dual Pack Pro Ophthalmology Lenses: TECNIS [id number] (16.5) Procedure Notes: PREOPERATIVE DIAGNOSIS: Decreased visual acuity right eye secondary to cataract POSTOPERATIVE DIAGNOSIS: Same PROCEDURE: Right cataract extraction with intraocular lens insertion SURGEON: Sunny Watts M.D. ANESTHESIA: Topical/MAC ESTIMATED BLOOD LOSS: None COMPLICATIONS: None After obtaining informed consent, the patient was brought to the operating room suite and placed in the supine position. After adequate sedation per anesthesia, topical drops of Tetracaine were given to the right eye. The eye was then prepped and draped in the usual sterile fashion. The operating room microscope was then positioned over the operative eye and a lid speculum placed. A paracentesis was created. Viscoelastic was then instilled into the anterior chamber. A three plane incision was then created temporally, utilizing a 2.85 mm keratome. Capsulotomy forceps were then utilized to create a circular tear capsulotomy. Hydrodissection and hydrodelineation were carried out until adequate mobilization of the nucleus occurred. Phacoemulsification was then utilized to remove the dense central nucleus followed by removal of the cortical material utilizing the automated aspiration irrigation unit. Viscoelastic was instilled into the posterior capsular bag followed by placement of a posterior chamber intraocular lens without difficulty. The residual Viscoelastic was then removed utilizing the automated IA machine. The wound was checked and found to be watertight. The patient tolerated the procedure well and the lid speculum was removed. Intracameral injection of Vigamox 0.1 mL followed by a subtenon injection of Kenalog-40 0.2 mL were administered. The patient will be seen in the a.m.
[2022-02-09 09:56] VITALS: BP 156/75; PULSE 65; RESP 17; TEMP 36.1; O2SAT 99
== END 2022-02-09 09:59 | disposition home or self-care (01) ==
PROVIDERS: PCP Hospitalist; Visit Provider Ophthalmology
PROC: (CPT 66985; principal; 2022-02-09 09:40)
DX: H25.11 Age-related nuclear cataract, right eye (principal); Z83.511 Family history of glaucoma; H54.7 Unspecified visual loss; H40.013 Open angle with borderline findings, low risk, bilateral; H35.09 Other intraretinal microvascular abnormalities; Z96.1 Presence of intraocular lens; E11.9 Type 2 diabetes mellitus without complications; I25.10 Atherosclerotic heart disease of native coronary artery without angina pectoris; J45.909 Unspecified asthma, uncomplicated; Z79.82 Long term (current) use of aspirin; Z79.84 Long term (current) use of oral hypoglycemic drugs; Z79.899 Other long term (current) drug therapy
CPT/HCPCS: 66984; 82947; J2250; J3010; J3300; V2632

== ENCOUNTER 2022-08-21 07:35 | Outpatient (REF) | payer OTHER, SELFPAY ==
--- NOTE | ~2022-08-21 | MM_ITS ---
EXAMINATION: MM SCREENING DIGITAL BREAST TOMOSYNTHESIS, BILATERAL CLINICAL INFORMATION: Screening. Asymptomatic. The lifetime risk of breast cancer based on the Tyrer-Cuzick Model is 4.2%. COMPARISON: Mammography: July 21, 2021 and studies dating back to February 04, 2016 TECHNIQUE: Digital breast tomosynthesis is performed in both the craniocaudal and mediolateral oblique views along with computer-aided detection (CAD). Synthesized 2D images are generated from the tomosynthesis. FINDINGS: There are scattered areas of fibroglandular density (ACR BI-RADS breast composition Category b). There are no new significant masses, abnormal calcifications, or other abnormalities. MM/MM tomosynthesis screening BI IMPRESSION: No significant changes ASSESSMENT: BI-RADS 1: Negative RECOMMENDATION: Routine annual mammography screening. This patient's information was entered into a reminder system with a target due date for their next mammogram.
== END 2022-08-21 07:36 | disposition home or self-care (01) ==
LOC: HO.MAMMO 07:35
PROVIDERS: PCP Hospitalist; Visit Provider Hospitalist
DX: Z12.31 Encounter for screening mammogram for malignant neoplasm of breast (principal)
CPT/HCPCS: 77063; 77067

== ENCOUNTER 2022-08-31 23:16 | Emergency (ER) | payer OTHER, SELFPAY ==
--- NOTE | 2022-08-31 | ECG_ITS ---
Test Reason : SYNCOPE Blood Pressure : / mmHG Vent. Rate : 079 BPM Atrial Rate : 079 BPM P-R Int : 230 ms QRS Dur : 120 ms QT Int : 396 ms P-R-T Axes : 045 014 016 degrees QTc Int : 454 ms Sinus rhythm with 1st degree A-V block Low voltage QRS Right bundle branch block Abnormal ECG When compared with ECG of 02-JAN-2021 19:18, [place] interval has increased Referred By: Generic ED Physician Electronically Signed By:Jarad Parham
[2022-08-31 23:19] VITALS: BP 174/86; PULSE 83; RESP 18; TEMP 36.1; O2SAT 99; BMI 25.8
[2022-08-31 23:46] LABS: MANUAL DIFF FLAG NO
[2022-08-31 23:51] LABS: Basophils Absolute Auto 0.1 X10*3/uL (0.0-0.2); Basophils Percent Auto 0.9 % (0-2); Eosinophils Absolute Auto 0.3 X10*3/uL (0.0-0.4); Eosinophils Percent Auto 5.7 % (0-4); Hematocrit 39.1 % (37.0-47.0); Hemoglobin 12.3 g/dl (12.0-16.0); Imm Gran Abs Auto 0.03 X10*3/uL (0.00-0.03); Imm Gran Pct Auto 0.5 % (0.0-0.4); Lymphocytes Absolute Auto 1.7 X10*3/uL (1.2-4.9); Lymphocytes Percent Auto 29.7 % (20-40); Mean Corpuscular HGB Conc 31.5 g/dl (31.0-35.0); Mean Corpuscular Hemoglobin 29.6 pg (27.0-33.0); Mean Platelet Volume 10.2 fL (9.4-12.3); Monocytes Absolute Auto 0.6 X10*3/uL (0.1-1.2); Monocytes Percent Auto 10.8 % (2-11); Neutrophils Absolute Auto 3.1 x10*3/uL (2.0-8.3); Neutrophils Percent Auto 52.4 % (45-73); Platelet Count 144 X10*3/uL (160-400); Red Blood Count 4.16 X10*6/uL (4.20-5.50); Red Cell Distribution Width 13.6 % (11.0-16.0); White Blood Count 5.8 X10*3/uL (4.8-10.8)
[2022-09-01 00:03] LABS: Anion Gap 10 (12-20); Blood Urea Nitrogen 20 mg/dL (9-16); Calcium 8.6 mg/dL (8.4-10.2); Carbon Dioxide 25 mmol/L (22-29); Chloride 109 mmol/L (96-108); Creatinine Clr Calc Pharmacy 58.1; Estimated Glomerular Filt Rate 53; Glucose Random 109 mg/dL (60-115); Potassium 4.1 mmol/L (3.3-5.1); Sodium 140 mmol/L (135-145)
--- NOTE | 2022-09-01 00:32 | ED_ITS ---
HPI - General Adult General Chief complaint: General Medical Stated complaint: vertigo,vomiting Time Seen by Provider: 09/01/22 00:31 Source: patient Mode of arrival: ambulatory Limitations: no limitations History of Present Illness HPI narrative: patient was diagnosed with vertigo last year, patient was place on medication had it for a few days and it went away. no recent fever or earache, she does have postnasal drip. Today suddenly when she moved her head things began to spin and then developed vomiting. patient had a head CT that was negative. Onset (ago): hour(s) Severity: mild Associated symptoms: nausea/vomiting Related Data Home Medications Medication Instructions Recorded Confirmed albuterol sulfate 90 mcg/actuation 2 puff inhalation QID PRN 09/10/20 04/09/22 aerosol inhaler Shortness Of Breath Or Wheezing aspirin 81 mg tablet,delayed 81 mg PO DAILY 09/23/20 04/09/22 release (Adult Low Dose Aspirin) Previous Rx's Medication Instructions Recorded amlodipine 5 mg tablet 5 mg PO DAILY 30 days #30 tabs 04/21/22 meclizine 25 mg tablet 25 mg PO TID PRN dizziness #20 tabs 09/01/22 Allergies Allergy/AdvReac Type Severity Reaction Status Date / Time peach [PEACH] Allergy Intermediate DIFFICULTY Verified 04/09/22 10:39 BREATHING Review of Systems Review of Systems: Yes all other systems are reviewed and are negative Constitutional: Comments: dizziness PMFSH Past Medical History Medical History Asthma Atherosclerotic cardiovascular disease CAD (coronary artery disease) Diabetes Obesity Renal stones Rhabdomyolysis Urgency incontinence Surgical History H/O colonoscopy History of carpal tunnel release Hx laparoscopic cholecystectomy Hx of cataract extraction Hx of cystoscopy Hx of lithotripsy S/P cardiac catheterization Family History Family History Father No problems noted. Mother No problems noted. Social History Social History Alcohol intake: current Alcohol intake frequency: holidays/special occasions only Patient Tobacco Use Status: Never used Tobacco Smoked in Last 30 Days: No Use of substances other than those prescribed or required for medical reasons: No Advance Directives: No Advance Directives Information Provided: Yes service: No Current occupational status: employed Physical Exam ED Vital Signs: Vital Signs - 24 hr 08/31/22 23:19 09/01/22 00:46 09/01/22 02:00 Temperature 96.9 F 97.8 F 98.1 F Pulse Rate 83 82 78 Respiratory Rate 18 15 18 Blood Pressure 174/86 H 164/84 H 148/80 H Pulse Oximetry 99 97 96 Oxygen Delivery Method Room Air Room Air Room Air Oxygen Flow Rate 98 BMI result Body Mass Index 25.8 Const General: healthy appearing Nutritional Appearance: average body habitus Orientation/consciousness: oriented to person and patient oriented x3 Limitations: no limitations HENMT Head: Yes normal to inspection Ears: external ears normal General nose exam: Normal external nose present Mouth: Normal oral and palatal mucosa present and oropharynx normal Throat: Yes posterior oropharynx normal Eyes General: appearance normal, both eyes and all related structures Neck Neck: Yes normal visual inspection Chest Chest palpation & inspection: normal inspection of the chest Resp Auscultation: clear to auscultation bilaterally Cardio Jugular venous distension: no JVD Rate: regular rate Rhythm: regular rhythm Heart sounds: S1 normal heart sound present and S2 normal heart sound present GI Inspection: Yes normal to inspection Palpation (GI): Soft to palpation, nontender and No hepatosplenomegaly present Auscultation: normal bowel sounds General: Yes no CVA tenderness Back/Spine/Pelvis Back: no CVA tenderness Skin General skin exam: no rashes or lesions noted Neuro General: oriented to person and patient oriented x3 Cranial nerves: Yes CN's II-XII intact bilaterally Motor exam (neuro): 5/5 motor strength present throughout Extrem General: Yes normal to inspection Psych Appearance: grossly normal Course Reevaluation(s) Reevaluation #1: troponin trending down, no ischemia on EKG, will treat for vertigo and dc home Time: 02:40 Medications Administered Discontinued Medications Generic Name Dose Route Start Last Admin Trade Name Freq PRN Reason Stop Dose Admin Meclizine HCl 50 mg 09/01/22 00:37 09/01/22 00:41 Meclizine Hcl 25 Mg Tablet PO 09/01/22 00:38 50 mg ONCE ONE Administration Medical Decision Making Differential Diagnosis Differential Diagnoses: The differential diagnosis associated with the presentation includes (vertigo, cardiac ischemia, electrolyte abnormality) Admission/Observation Consideration of admission/observation: Escalation of care including admission/observation considered (67 yo female with with dizziness and vomiting and an EKG that is a RBBB, admission was considered) Lab Data MDM Lab Attestation statement: I reviewed the patient's lab results. (troponin trending down) 08/31/22 23:41 08/31/22 23:41 Labs: Lab Results 08/31/22 08/31/22 08/31/22 Range/Units 23:41 23:41 23:41 WBC 5.8 (4.8-10.8) X10*3/uL RBC 4.16 L (4.20-5.50) X10*6/uL Hgb 12.3 (12.0-16.0) g/dl Hct 39.1 (37.0-47.0) % MCV 94.0 (80.0-98.0) fL MCH 29.6 (27.0-33.0) pg MCHC 31.5 (31.0-35.0) g/dl RDW 13.6 (11.0-16.0) % Plt Count 144 L (160-400) X10*3/uL MPV 10.2 (9.4-12.3) fL Immature Gran % (Auto) 0.5 H (0.0-0.4) % Neut % (Auto) 52.4 (45-73) % Lymph % (Auto) 29.7 (20-40) % Maverick % (Auto) 10.8 (2-11) % Eos % (Auto) 5.7 H (0-4) % Baso % (Auto) 0.9 (0-2) % Lymph # (Auto) 1.7 (1.2-4.9) X10*3/uL [place] # (Auto) 0.6 (0.1-1.2) X10*3/uL Eos # (Auto) 0.3 (0.0-0.4) X10*3/uL Baso # (Auto) 0.1 (0.0-0.2) X10*3/uL Abs Immat Gran (auto) 0.03 (0.00-0.03) X10*3/uL Absolute Neuts (auto) 3.1 (2.0-8.3) x10*3/uL Absolute Nucleated RBC 0.000 (0.0-0.012) X10*3/uL Nucleated RBC % (auto) 0.0 (0.0-0.2) /100WBC Sodium 140 (135-145) mmol/L Potassium 4.1 (3.3-5.1) mmol/L Chloride 109 H (96-108) mmol/L Carbon Dioxide 25 (22-29) mmol/L Anion Gap 10 L (12-20) BUN 20 H (9-16) mg/dL Creatinine 1.04 (0.5-1.4) mg/dL Estim Creat Clear Calc 58.1 Estimated GFR 53 Random Glucose 109 (60-115) mg/dL Calcium 8.6 D (8.4-10.2) mg/dL Troponin I High Sens 51.0 H* (<3.5-17.0) ng/L 09/01/22 Range/Units 02:05 WBC (4.8-10.8) X10*3/uL RBC (4.20-5.50) X10*6/uL Hgb (12.0-16.0) g/dl Hct (37.0-47.0) % MCV (80.0-98.0) fL MCH (27.0-33.0) pg MCHC (31.0-35.0) g/dl RDW (11.0-16.0) % Plt Count (160-400) X10*3/uL MPV (9.4-12.3) fL Immature Gran % (Auto) (0.0-0.4) % Neut % (Auto) (45-73) % Lymph % (Auto) (20-40) % [place] % (Auto) (2-11) % Eos % (Auto) (0-4) % Baso % (Auto) (0-2) % Lymph # (Auto) (1.2-4.9) X10*3/uL [place] # (Auto) (0.1-1.2) X10*3/uL Eos # (Auto) (0.0-0.4) X10*3/uL Baso # (Auto) (0.0-0.2) X10*3/uL Abs Immat Gran (auto) (0.00-0.03) X10*3/uL Absolute Neuts (auto) (2.0-8.3) x10*3/uL Absolute Nucleated RBC (0.0-0.012) X10*3/uL Nucleated RBC % (auto) (0.0-0.2) /100WBC Sodium (135-145) mmol/L Potassium (3.3-5.1) mmol/L Chloride (96-108) mmol/L Carbon Dioxide (22-29) mmol/L Anion Gap (12-20) BUN (9-16) mg/dL Creatinine (0.5-1.4) mg/dL Estim Creat Clear Calc Estimated GFR Random Glucose (60-115) mg/dL Calcium (8.4-10.2) mg/dL Troponin I High Sens 44.7 H (<3.5-17.0) ng/L Independent Interpretation I performed an independent interpretation of an: EKG (sinus 80, RBBB, no st or twave changes) Discharge Plan Discharge Clinical Impression: Vertigo Patient Disposition: Home, Self-Care Instructions: Vertigo (ED) Prescriptions: New meclizine 25 mg tablet 25 mg PO TID PRN (Reason: dizziness) Qty: 20 0RF No Action amlodipine 5 mg tablet 5 mg PO DAILY 30 Days Qty: 30 2RF albuterol sulfate 90 mcg/actuation Hfa Aerosol Inhaler 2 puff INHALATION QID PRN (Reason: Shortness Of Breath Or Wheezing) aspirin [Adult Low Dose Aspirin] 81 mg tablet,delayed release (DR/EC) 81 mg PO DAILY
[2022-09-01] MEDS: Meclizine HCl 25 MG TABLET 50 MG PO (00:41)
[2022-09-01 00:46] VITALS: BP 164/84; PULSE 82; RESP 15; TEMP 36.6; O2SAT 97
--- NOTE | 2022-09-01 00:49 | MHC.EDTECH ---
THIS PCT JUST ASSUMED CARE OF PATIENT ,PT WAS HOOKED UP TO M1A1 [employer] ,VITALS SIGN TAKEN ,PT RESTING QUIETLY IN BED .
--- NOTE | 2022-09-01 01:26 | PC.NURSE ---
This bond underwriter assumed care of this Pt at 0020. Pt A&Ox4, denies any pain, reports feeling better after one episode of vomiting, states I have a slight headache . Denies any CP, palpitations and SOB. Pt placed on bedside monitor, HR 73,EKG was obtained in triage. Medicated per JUL. Warm blanket given. Will CTM.
[2022-09-01 02:00] VITALS: BP 148/80; PULSE 78; RESP 18; TEMP 36.7; O2SAT 96
--- NOTE | 2022-09-01 02:07 | MHC.EDTECH ---
PT 0200 ROUNDING DONE ,VITALS SIGN TAKEN ,PT REPEATED TROP DRAWN AND SENT TO LAB .
[2022-09-01 02:30] LABS: Troponin-I High Sensitivity 44.7 ng/L (<3.5-17.0)
== END 2022-09-01 03:00 | disposition home or self-care (01) ==
PROVIDERS: Emergency Provider Emergency Medicine; PCP Hospitalist
DX: R55 Syncope and collapse (principal); R11.2 Nausea with vomiting, unspecified; R94.31 Abnormal electrocardiogram [ECG] [EKG]; Z79.899 Other long term (current) drug therapy
CPT/HCPCS: 36415; 80048; 84484; 85025; 93005; 99284

== ENCOUNTER 2022-09-02 11:21 | Observation (INO) | payer OTHER, SELFPAY ==
[2022-09-02] VITALS (8 sets, daily range): BP systolic 140–166; BP diastolic 67–86; PULSE 68–86; RESP 14–18; TEMP 36.4–36.8; O2SAT 97–100; BMI 33.7; BMI 36.1
--- NOTE | ~2022-09-02 | CT_ITS ---
EXAMINATION: CT HEAD WITHOUT CONTRAST CLINICAL INFORMATION: Dizziness COMPARISON: None available. TECHNIQUE: Contiguous axial imaging was performed from the skull base to vertex without intravenous administration of contrast. This CT examination was performed using dose optimization techniques as appropriate, variously including the following: *Automated exposure control *Adjustment of mA and/or kV according to patient size (this includes techniques or standardized protocols for targeted exams where dose is matched to indication/reason for exam; i.e. extremities or head) *Use of iterative reconstruction technique DLP: 543 mGy-cm FINDINGS: There is prominence to the sulci and ventricles. There is moderate deep white matter gliosis. This is consistent with involutional change. A more focal area of encephalomalacia is seen in the right parietal vertex. No evidence however for intra or extra-axial fluid collection, hemorrhage, mass or mass effect. Calvarium intact. CT/CT head/brain wo IV con IMPRESSION: No acute intracranial pathology.
--- NOTE | ~2022-09-02 | MR_ITS ---
EXAMINATION: MR BRAIN WITHOUT CONTRAST CLINICAL INFORMATION: Persistent vertigo COMPARISON: CT head without contrast 09/02/2022 TECHNIQUE: Multiplanar multisequence MR imaging of the brain was obtained without intravenous contrast. FINDINGS: There is no acute infarct on diffusion-weighted imaging. There is no intracranial hemorrhage on iron-sensitive imaging. No extra-axial collection or mass effect/herniation. Patchy periventricular and deep white matter T2 FLAIR hyperintensities consistent with moderate underlying microangiopathy. Small chronic lacunar infarct in the right cerebellum. No hydrocephalus. Mild generalized cerebral volume loss with commensurate sulcal and ventricular prominence. The major flow voids at the skull base are preserved. The midline structures are normal. The cerebellar tonsils are normally positioned. The craniocervical junction is normal. Marrow signal is within normal limits. The visualized soft tissues are without significant abnormality. No signal abnormality within the paranasal sinuses or within the mastoid air cells. MR/MR head/brain wo con IMPRESSION: No acute infarct or other acute intracranial abnormality.
--- NOTE | 2022-09-02 11:44 | PC.NURSE ---
pt alert/oriented. reporting sudden onset dizzines and near syncope at work. No LOC, No fall. Pt here Wednesday with same problem and has been unable to pick up driver prescribed medications due to pharm hours/work etc. Hx. vertigo diagnosed last year. Hx [place] two years ago. Neuros intact, neg facial droop, neg extrem drift, equal strength, speaking in clear and full sentences. vitals stable, diagnostic cardiac sonographer intact. Will cont to monitor.
--- NOTE | 2022-09-02 12:06 | ED.DIZZY ---
HPI - Dizziness General Chief Complaint: Dizziness Stated Complaint: Feeling faint per EMS Time Seen by Provider: 09/02/22 11:40 Source: patient and old records reviewed Limitations: no limitations History of Present Illness HPI Narrative: Patient presents complaining of dizziness. She was seen here yesterday for the same sensation and was diagnosed with vertigo. She is medicated the time with meclizine and felt considerably better. Prescription was sent to her pharmacy but she has not had a chance to pick it up so she has not had any additional doses since discharge approximately 30 hours prior to arrival now. She states yesterday she felt okay and went to work. She felt a little dizzy at the end of the day. Today she went to work and while at work got dizzy again. 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 She denies headache. She has a history of heart attack but no history of stroke. She states when she gets very dizzy a makes her very nauseous and she has vomited several times over the past few days. Dizziness gets worse when she stands up or moves her head too quickly. It is better when she closes arise and fixates her vision on 1 spot. If feels identical to the vertigo episode she had a year ago which resolved spontaneously. Related Data Home Medications Medication Instructions Recorded Confirmed albuterol sulfate 90 mcg/actuation 2 puff inhalation QID PRN 09/10/20 04/09/22 aerosol inhaler Shortness Of Breath Or Wheezing aspirin 81 mg tablet,delayed 81 mg PO DAILY 09/23/20 04/09/22 release (Adult Low Dose Aspirin) Previous Rx's Medication Instructions Recorded amlodipine 5 mg tablet 5 mg PO DAILY 30 days #30 tabs 04/21/22 meclizine 25 mg tablet 25 mg PO TID PRN dizziness #20 tabs 09/01/22 Allergies Allergy/AdvReac Type Severity Reaction Status Date / Time peach [PEACH] Allergy Intermediate DIFFICULTY Verified 04/09/22 10:39 BREATHING Review of Systems Constitutional: Comments: No fevers or chills or recent illness ENT: Comments: No ear pain or tinnitus Cardiovascular: Comments: No chest pain or palpitations Respiratory: Comments: No dyspnea Gastrointestinal: Comments: Positive nausea vomiting as described. No abdominal pain or diarrhea or constipation Musculoskeletal: Comments: No musculoskeletal symptoms Integumentary/Breasts: Comments: No skin changes Neurologic: Comments: No focal weakness PMFSH Past Medical History Medical History Asthma Atherosclerotic cardiovascular disease CAD (coronary artery disease) Diabetes Obesity Renal stones Rhabdomyolysis Urgency incontinence Surgical History H/O colonoscopy History of carpal tunnel release Hx laparoscopic cholecystectomy Hx of cataract extraction Hx of cystoscopy Hx of lithotripsy S/P cardiac catheterization Family History Family History Father No problems noted. Mother No problems noted. Social History Social History Alcohol intake: current Alcohol intake frequency: holidays/special occasions only Patient Tobacco Use Status: Never used Tobacco Smoked in Last 30 Days: No Use of substances other than those prescribed or required for medical reasons: No Advance Directives: No service: No Current occupational status: employed Physical Exam Vital Signs: Vital Signs: Last Vital Signs Temp 97.6 F 09/02/22 14:59 Pulse 68 09/02/22 14:59 Resp 14 09/02/22 14:59 BP 166/85 H 09/02/22 14:59 Pulse Ox 99 09/02/22 14:59 O2 Del Method Room Air 09/02/22 14:59 BMI result Body Mass Index 33.7 Const: Other: Awake and alert. Comfortable. HEENT: Other: TMs are normal bilaterally Eyes: Other: Pupils equal round reactive to light. Extraocular muscles intact. Extinguishing nystagmus on left lateral gaze Neck: Other: No bruits noted. Full range of motion. Resp: Other: Clear and equal bilaterally without wheezes rales or rhonchi Cardio: Other: Regular rate and rhythm without murmurs rubs or gallops GI: Other: Soft nontender nondistended Neuro: Other: Normal neuro exam. Extremities with equal strength bilaterally. [id number] is normal without ataxia bilaterally. Patient not ambulated at this time is that brings on her nausea symptoms. Will treat with meclizine and ambulate when symptoms have improved Medications Administered Discontinued Medications Generic Name Dose Route Start Last Admin Trade Name Freq PRN Reason Stop Dose Admin Meclizine HCl 25 mg 09/02/22 12:06 09/02/22 12:12 Meclizine Hcl 25 Mg Tablet PO 09/02/22 12:07 25 mg ONCE ONE Administration Medical Decision Making Medical Decision Making [facility] Narrative: Patient with vertigo. Exam is most consistent with benign positional vertigo without evidence of central cause in the setting of a normal neuro exam. She also improved with meclizine but has not been able to get another dose. At this time I do not think she requires imaging. Review of last records show she also had a full cardiac workup which was also reassuring. I will repeat dose of meclizine and re-evaluate. 13:44. On re-evaluation patient states only minimal improvement. On attempted ambulation, patient was very unsteady on her feet. No nausea at this time. Given refractory vertigo, I will repeat blood work from yesterday and at on head CT. If still symptomatic at the end this workup, will likely require hospitalization for further management and possible MRI to better assess posterior circulation. 16:51. CT scan is normal. Lab work shows no significant abnormalities with CBC. Chemistries show no changes from baseline that would account for symptoms. Urinalysis is consistent with urinary tract infection. Patient denies dysuria but states she has had similar symptoms and issues in the past. While hospitalized for further treatment. Lab Data 09/02/22 15:27 09/02/22 16:15 Labs: Lab Results 09/02/22 09/02/22 09/02/22 Range/Units 15:27 15:27 15:27 WBC 6.5 (4.8-10.8) X10*3/uL RBC 4.22 (4.20-5.50) X10*6/uL Hgb 12.7 (12.0-16.0) g/dl Hct 39.8 (37.0-47.0) % MCV 94.3 (80.0-98.0) fL MCH 30.1 (27.0-33.0) pg MCHC 31.9 (31.0-35.0) g/dl RDW 13.5 (11.0-16.0) % Plt Count 141 L (160-400) X10*3/uL MPV 10.2 (9.4-12.3) fL Immature Gran % (Auto) 0.3 (0.0-0.4) % Neut % (Auto) 70.4 (45-73) % Lymph % (Auto) 20.0 (20-40) % Faulk % (Auto) 6.3 (2-11) % Eos % (Auto) 2.2 (0-4) % Baso % (Auto) 0.8 (0-2) % Lymph # (Auto) 1.3 (1.2-4.9) X10*3/uL Faulk # (Auto) 0.4 (0.1-1.2) X10*3/uL Eos # (Auto) 0.1 (0.0-0.4) X10*3/uL Baso # (Auto) 0.1 (0.0-0.2) X10*3/uL Abs Immat Gran (auto) 0.02 (0.00-0.03) X10*3/uL Absolute Neuts (auto) 4.6 (2.0-8.3) x10*3/uL Absolute Nucleated RBC 0.000 (0.0-0.012) X10*3/uL Nucleated RBC % (auto) 0.0 (0.0-0.2) /100WBC Sodium (135-145) mmol/L Potassium (3.3-5.1) mmol/L Chloride (96-108) mmol/L Carbon Dioxide (22-29) mmol/L Anion Gap (12-20) BUN (9-16) mg/dL Creatinine (0.5-1.4) mg/dL Estim Creat Clear Calc Estimated GFR Random Glucose (60-115) mg/dL Calcium (8.4-10.2) mg/dL Total Bilirubin (0.0-1.0) mg/dL AST (5-31) U/L ALT (0-31) U/L Alkaline Phosphatase (39-117) U/L Troponin I High Sens 16.5 D (<3.5-17.0) ng/L Total Protein (6.5-8.0) g/dL Albumin (3.5-5.0) g/dL Urine Color Urine Appearance Urine pH (5.0-9.0) Ur Specific [place] (1.005-1.025) Urine Protein (Neg-Trace) mg/dL Urine Glucose (UA) (Negative) mg/dL Urine Ketones (Negative) mg/dL Urine Blood (Negative) Urine Nitrite (Negative) Ur Leukocyte Esterase (Negative) Urine RBC (0-2) /HPF Urine WBC (0-5) /HPF Ur Squamous Epith Cells (0-2) /HPF Urine Bacteria (None Seen) Hyaline Casts (0-2) /LPF COVID-19 (WEI) Negative (Negative) COVID-19 Clin Com See Note 09/02/22 09/02/22 Range/Units 15:51 16:15 WBC (4.8-10.8) X10*3/uL RBC (4.20-5.50) X10*6/uL Hgb (12.0-16.0) g/dl Hct (37.0-47.0) % MCV (80.0-98.0) fL MCH (27.0-33.0) pg MCHC (31.0-35.0) g/dl RDW (11.0-16.0) % Plt Count (160-400) X10*3/uL MPV (9.4-12.3) fL Immature Gran % (Auto) (0.0-0.4) % Neut % (Auto) (45-73) % Lymph % (Auto) (20-40) % Faulk % (Auto) (2-11) % Eos % (Auto) (0-4) % Baso % (Auto) (0-2) % Lymph # (Auto) (1.2-4.9) X10*3/uL Faulk # (Auto) (0.1-1.2) X10*3/uL Eos # (Auto) (0.0-0.4) X10*3/uL Baso # (Auto) (0.0-0.2) X10*3/uL Abs Immat Gran (auto) (0.00-0.03) X10*3/uL Absolute Neuts (auto) (2.0-8.3) x10*3/uL Absolute Nucleated RBC (0.0-0.012) X10*3/uL Nucleated RBC % (auto) (0.0-0.2) /100WBC Sodium 138 (135-145) mmol/L Potassium 4.5 (3.3-5.1) mmol/L Chloride 111 H (96-108) mmol/L Carbon Dioxide 20 L (22-29) mmol/L Anion Gap 12 (12-20) BUN 24 H (9-16) mg/dL Creatinine 0.94 (0.5-1.4) mg/dL Estim Creat Clear Calc 52.2 Estimated GFR 60 Random Glucose 86 (60-115) mg/dL Calcium 8.6 (8.4-10.2) mg/dL Total Bilirubin 0.7 (0.0-1.0) mg/dL AST 87 H (5-31) U/L ALT 69 H (0-31) U/L Alkaline Phosphatase 94 (39-117) U/L Troponin I High Sens (<3.5-17.0) ng/L Total Protein 9.2 H (6.5-8.0) g/dL Albumin 3.1 L (3.5-5.0) g/dL Urine Color Yellow Urine Appearance Cloudy Urine pH 6.5 (5.0-9.0) Ur Specific [place] 1.015 (1.005-1.025) Urine Protein Trace (Neg-Trace) mg/dL Urine Glucose (UA) Negative (Negative) mg/dL Urine Ketones Negative (Negative) mg/dL Urine Blood Large (3+) H (Negative) Urine Nitrite Negative (Negative) Ur Leukocyte Esterase Large (3+) H (Negative) Urine RBC >20 H (0-2) /HPF Urine WBC >50 H (0-5) /HPF Ur Squamous Epith Cells 0-2 (0-2) /HPF Urine Bacteria None Seen (None Seen) Hyaline Casts 0-2 (0-2) /LPF COVID-19 ([facility]) (Negative) COVID-19 Clin Com Discharge Plan Discharge Patient Disposition: Admitted As Inpatient Prescriptions: No Action amlodipine 5 mg tablet 5 mg PO DAILY 30 Days Qty: 30 2RF albuterol sulfate 90 mcg/actuation Hfa Aerosol Inhaler 2 puff INHALATION QID PRN (Reason: Shortness Of Breath Or Wheezing) meclizine 25 mg tablet 25 mg PO TID PRN (Reason: dizziness) Qty: 20 0RF aspirin [Adult Low Dose Aspirin] 81 mg tablet,delayed release (DR/EC) 81 mg PO DAILY
[2022-09-02] MEDS: Meclizine HCl 25 MG TABLET PO ×2 (12:12→21:26)
--- NOTE | 2022-09-02 13:42 | ECG_ITS ---
Test Reason : DIZZINESS Blood Pressure : / mmHG Vent. Rate : 067 BPM Atrial Rate : 067 BPM P-R Int : 194 ms QRS Dur : 136 ms QT Int : 428 ms P-R-T Axes : 030 -13 002 degrees QTc Int : 452 ms Normal sinus rhythm Possible Left atrial enlargement Right bundle branch block Abnormal ECG When compared with ECG of 31-AUG-2022 23:46, [place] interval has decreased Referred By: Samy Cope Electronically Signed By:Jarad Parham
[2022-09-02 15:31] LABS: MANUAL DIFF FLAG NO
--- NOTE | 2022-09-02 15:31 | PC.NURSE ---
pt reports decreased dizziness while going to Ct. still reports some dizziness. urine and labs pedning. pt reports no pain. will cont to mon
[2022-09-02 15:37] LABS: Basophils Absolute Auto 0.1 X10*3/uL (0.0-0.2); Basophils Percent Auto 0.8 % (0-2); Eosinophils Absolute Auto 0.1 X10*3/uL (0.0-0.4); Eosinophils Percent Auto 2.2 % (0-4); Hematocrit 39.8 % (37.0-47.0); Hemoglobin 12.7 g/dl (12.0-16.0); Imm Gran Abs Auto 0.02 X10*3/uL (0.00-0.03); Imm Gran Pct Auto 0.3 % (0.0-0.4); Lymphocytes Absolute Auto 1.3 X10*3/uL (1.2-4.9); Mean Corpuscular HGB Conc 31.9 g/dl (31.0-35.0); Mean Corpuscular Hemoglobin 30.1 pg (27.0-33.0); Mean Corpuscular Volume 94.3 fL (80.0-98.0); Mean Platelet Volume 10.2 fL (9.4-12.3); Monocytes Absolute Auto 0.4 X10*3/uL (0.1-1.2); Monocytes Percent Auto 6.3 % (2-11); Neutrophils Absolute Auto 4.6 x10*3/uL (2.0-8.3); Neutrophils Percent Auto 70.4 % (45-73); Platelet Count 141 X10*3/uL (160-400); Red Blood Count 4.22 X10*6/uL (4.20-5.50); Red Cell Distribution Width 13.5 % (11.0-16.0); White Blood Count 6.5 X10*3/uL (4.8-10.8)
[2022-09-02 15:50] LABS: COVID-19 Test Negative (Negative); IDNOW Serial# 08D9AD1C
[2022-09-02 16:11] LABS: Troponin-I High Sensitivity 16.5 ng/L (<3.5-17.0)
[2022-09-02 16:17] LABS: Appearance Urine Cloudy; Color Urine Yellow; Glucose Urine UA Negative (Negative); Leukocyte Esterase Urine Large (3+) (Negative); Nitrite Urine Negative (Negative); PH 6.5 (5.0-9.0); Specific Gravity - Urine 1.015 (1.005-1.025); UMIC TRIGGER UACC YES; Urine Blood Large (3+) (Negative); Urine Ketones Negative (Negative); Urine Protein Trace mg/dL (Neg-Trace)
[2022-09-02 16:26] LABS: Bacteria Urine None Seen (None Seen); Hyaline Casts Urine 0-2 /LPF (0-2); RBC Urine >20 /HPF (0-2); Squamous Epithelial Cell Urine 0-2 /HPF (0-2); UACC Culture Trigger YES; WBC Urine >50 /HPF (0-5)
[2022-09-02 16:49] LABS: Alanine Aminotransferase 69 U/L (0-31); Albumin Level 3.1 g/dL (3.5-5.0); Alkaline Phosphatase 94 U/L (39-117); Anion Gap 12 (12-20); Aspartate Amino Transferase 87 U/L (5-31); Bilirubin Total 0.7 mg/dL (0.0-1.0); Blood Urea Nitrogen 24 mg/dL (9-16); Calcium 8.6 mg/dL (8.4-10.2); Carbon Dioxide 20 mmol/L (22-29); Chloride 111 mmol/L (96-108); Creatinine Clr Calc Pharmacy 52.2; Estimated Glomerular Filt Rate 60; Glucose Random 86 mg/dL (60-115); Potassium 4.5 mmol/L (3.3-5.1); Sodium 138 mmol/L (135-145); Total Protein 9.2 g/dL (6.5-8.0)
[2022-09-02] MEDS: cephALEXin 500 MG CAPSULE 1000 MG PO (17:14)
--- NOTE | 2022-09-02 17:32 | PHA.MEDREC ---
Pharmacy Consult ? Medication Reconciliation Pharmacy has completed the medication reconciliation. Patient states that they have not been on medications for >3 months. 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 She said that the provider went on vacation and she missed a followup, so her next appt is 09/16/22. At that time, she will discuss the amlodpine and aspirin Daren
--- NOTE | 2022-09-02 18:02 | PM.IMHP ---
History of Present Illness Date of Service: 09/02/22 Attending physician on admission: Yusef Park Chief Complaint: vertigo 67-year-old female with history of type 2 diabetes, hypertension, coronary artery disease, mild intermittent asthma, history nephrolithiasis, and history of vertigo presents to the ED for evaluation of dizziness. She was seen yesterday in the ER for same sensation was thought to have vertigo was prescribed meclizine. 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 She describes the room spinning sensation associated with nausea and vomiting. At that time, gait was very unsteady and her coworkers called EMS. She denies any associated headaches, hearing loss, tinnitus, or lightheadedness. She was given a dose of 25 mg meclizine in the ED with some improvement in symptoms. She has been able to ambulate to the bathroom without difficulty and denies any recurrent nausea or vomiting. She denies any dizziness currently. No visual changes. On arrival, patient hypertensive to 166/85, vital signs otherwise normal. Hematology studies unremarkable. Renal function normal, electrolyte levels without significant abnormality. AST 87, ALT 69, total bilirubin 0.7. Head CT is without any acute intracranial pathology. Given persistence of symptoms and severity with which they recurred, patient will be observed overnight. Review of Systems Review of Systems: General: No fevers, malaise, unintentional weight loss HEENT: No blurred vision, diplopia. No sore throat, nasal congestion, rhinorrhea, sinus pain, ear pain Cardiovascular: No chest pain, palpitations, or leg edema Respiratory: No shortness of breath, wheezing, cough GI: +n/v. No abdominal pain, diarrhea, constipation, melena, hematochezia : No dysuria, hematuria, increased urinary frequency, decreased urinary output MSK: No myalgia, back pain Neuro: No headaches, weakness, paresthesias. +vertigo, +gait imbalance Skin: No rashes or lesions [facility] Medical History Asthma Atherosclerotic cardiovascular disease CAD (coronary artery disease) Diabetes Obesity Renal stones Rhabdomyolysis Urgency incontinence Family History Father No problems noted. Mother No problems noted. Surgical History H/O colonoscopy History of carpal tunnel release Hx laparoscopic cholecystectomy Hx of cataract extraction Hx of cystoscopy Hx of lithotripsy S/P cardiac catheterization Social History Alcohol intake: current Alcohol intake frequency: holidays/special occasions only Patient Tobacco Use Status: Never used Tobacco Smoked in Last 30 Days: No Use of substances other than those prescribed or required for medical reasons: No Advance Directives: No service: No Current occupational status: employed Meds Allergies Allergy/AdvReac Type Severity Reaction Status Date / Time peach [PEACH] Allergy Intermediate DIFFICULTY Verified 04/09/22 10:39 BREATHING Active Medications: Current Medications Acetaminophen (Acetaminophen 325 Mg Tablet) 650 mg PO Q6H PRN PRN Reason: Pain, Mild (Pain Scale 1-3) Docusate Sodium (Docusate Sodium 100 Mg Capsule) 100 mg PO DAILY PRN PRN Reason: Constipation Enoxaparin Sodium (Enoxaparin Sodium 40 Mg/0.4 Ml Syringe) 40 mg SUBCUT Q24H PATRICIA Meclizine HCl (Meclizine Hcl 25 Mg Tablet) 25 mg PO TID PATRICIA Ondansetron HCl (Ondansetron Hcl 4 Mg/2 Ml Vial) 4 mg IVPUSH Q8H PRN PRN Reason: Nausea and Vomiting Pharmacy Consult (Consult Rx Perform Med Rec) 1 each MISCELLANE ONCE PRN PRN Reason: Consult order Sodium Chloride (0.9 % Sodium Chloride Flush 3 Ml Syringe) 3 ml IVFLUSH QSHIFT PATRICIA Physical Exam Vital Signs and Narrative: Vital Signs: Last Vital Signs Temp 97.6 F 09/02/22 14:59 Pulse 68 09/02/22 14:59 Resp 14 09/02/22 14:59 BP 166/85 H 09/02/22 14:59 Pulse Ox 99 09/02/22 14:59 O2 Del Method Room Air 09/02/22 14:59 BMI result Body Mass Index 33.7 Constitutional - Awake and Alert, No apparent distress Eyes - PERRLA, EOMI Cardiovascular - S1S2, RRR, No edema Respiratory - Normal lung expansion, Normal respiratory effort, No respiratory distress, CTA bilaterally Gastrointestinal - NT / ND; +BS; No rebound or guarding Extremities - no calf tenderness bilaterally, no swelling Skin - Warm/Dry Neurological - Alert & oriented x3, right sided horizontal nystagmus otherwise CN II-XII in tact, finger to nose testing normal, no gait ataxia, negative deanna hallpike, 5/5 strength BUE and BLE Psychological - Appropriate affect Results Labs 09/02/22 15:27 09/02/22 16:15 Labs: Laboratory Results - last 24 hr 09/02/22 09/02/22 09/02/22 15:27 15:27 15:27 MCV 94.3 MCH 30.1 MCHC 31.9 RDW 13.5 Plt Count 141 L MPV 10.2 Immature Gran % (Auto) 0.3 Neut % (Auto) 70.4 Lymph % (Auto) 20.0 Early % (Auto) 6.3 Eos % (Auto) 2.2 Baso % (Auto) 0.8 Lymph # (Auto) 1.3 Early # (Auto) 0.4 Eos # (Auto) 0.1 Baso # (Auto) 0.1 Abs Immat Gran (auto) 0.02 Absolute Neuts (auto) 4.6 Absolute Nucleated RBC 0.000 Nucleated RBC % (auto) 0.0 Anion Gap Estim Creat Clear Calc Estimated GFR Random Glucose Calcium Total Bilirubin AST ALT Alkaline Phosphatase Troponin I High Sens 16.5 D Total Protein Albumin Urine Color Urine Appearance Urine pH Ur Specific [place] Urine Protein Urine Glucose (UA) Urine Ketones Urine Blood Urine Nitrite Ur Leukocyte Esterase Urine RBC Urine WBC Ur Squamous Epith Cells Urine Bacteria Hyaline Casts COVID-19 ([facility]) Negative COVID-19 Clin Com See Note 09/02/22 09/02/22 15:51 16:15 MCV MCH MCHC RDW Plt Count MPV Immature Gran % (Auto) Neut % (Auto) Lymph % (Auto) [place] % (Auto) Eos % (Auto) Baso % (Auto) Lymph # (Auto) Early # (Auto) Eos # (Auto) Baso # (Auto) Abs Immat Gran (auto) Absolute Neuts (auto) Absolute Nucleated RBC Nucleated RBC % (auto) Anion Gap 12 Estim Creat Clear Calc 52.2 Estimated GFR 60 Random Glucose 86 Calcium 8.6 Total Bilirubin 0.7 AST 87 H ALT 69 H Alkaline Phosphatase 94 Troponin I High Sens Total Protein 9.2 H Albumin 3.1 L Urine Color Yellow Urine Appearance Cloudy Urine pH 6.5 Ur Specific [place] 1.015 Urine Protein Trace Urine Glucose (UA) Negative Urine Ketones Negative Urine Blood Large (3+) H Urine Nitrite Negative Ur Leukocyte Esterase Large (3+) H Urine RBC >20 H Urine WBC >50 H Ur Squamous Epith Cells 0-2 Urine Bacteria None Seen Hyaline Casts 0-2 COVID-19 ([facility]) COVID-19 Clin Com Imaging Radiologist's Impressions: Impressions Head CT 09/02/22 14:40 IMPRESSION: No acute intracranial pathology. Assessment and Plan (1) Vertigo: Status: Acute Plan 67-year-old female with history of type 2 diabetes, hypertension, coronary artery disease, mild intermittent asthma, history nephrolithiasis, and history of vertigo to be observed overnight for further evaluation and work up of severe vertigo. #Acute vertigo -sudden onset lasting >1hr with nausea vomiting. -+right-sided horizontal nystagmus, negative deanna-hallpike, no cerebellar ataxia -DDx BPPV, vestibular neuritis, cerebellar infarction (low suspicion) -CT head without acute abnormality. MRI brain w/wo contract ordered for further evaluation -Meclizine 25mg TID -Outpt follow up #Abnormal UA -3+ leuks, 3+ blood, positive urinary sediment, negative bacteria. -Pt asymptomatic -Await cultures. Hold on empiric tx for UTI #HTN -appears noncompliant with meds -Resume amlodipine 5mg #Controlled type 2 diabetes -Diabetic diet -POC glucose #mild intermittent asthma -no exacerbation, albuterol prn #CAD -not on asa, statin, bb -no anginal cp, ekg nonischemic dvt prophylaxis- lovenox full code Time Spent With Patient Time: Total time managing care of this patient today ____ minutes. Quality Stroke Does the patient have a stroke diagnosis?: No VTE Prior VTE?: No VTE Risk Level:: Medical - moderate - high VTE Device Contraindication: Treatment Not Indicated VTE Drug Contraindication: N/A - Med Ordered
[2022-09-02] MEDS: amLODIPine Besylate 5 MG TABLET PO (19:30)
[2022-09-02] MEDS: Enoxaparin Sodium 40 MG/0.4 ML SYRINGE SUBCUT (19:30)
--- NOTE | 2022-09-02 19:32 | PC.NURSE ---
pt ortho stats negative. pressure remained fairly constant. upon ambulating with assist to the bathroom pt felt very dizzy and unsteady. wheelchair was used to return to room.
--- NOTE | 2022-09-02 20:50 | PC.NURSE ---
Nurse to nurse report given to [place] director of sports medicine. Patient to be transported to room 378 by ER transporter.
[2022-09-02] MEDS: 0.9 % Sodium Chloride Flush 3 ML SYRINGE IVFLUSH (21:26)
[2022-09-02 21:56] LABS: Glucose, Whole Blood 127 mg/dL (60-115)
[2022-09-03] VITALS (9 sets, daily range): BP systolic 127–184; BP diastolic 61–88; PULSE 72–95; RESP 16–20; TEMP 36.3–36.9; O2SAT 94–97
[2022-09-03 06:26] LABS: Hematocrit 38.7 % (37.0-47.0); Hemoglobin 12.4 g/dl (12.0-16.0); Mean Corpuscular Hemoglobin 29.8 pg (27.0-33.0); Mean Platelet Volume 10.9 fL (9.4-12.3); Platelet Count 128 X10*3/uL (160-400); Red Blood Count 4.16 X10*6/uL (4.20-5.50); Red Cell Distribution Width 13.4 % (11.0-16.0); White Blood Count 5.3 X10*3/uL (4.8-10.8)
[2022-09-03 06:40] LABS: Anion Gap 9 (12-20); Blood Urea Nitrogen 23 mg/dL (9-16); Calcium 8.5 mg/dL (8.4-10.2); Carbon Dioxide 22 mmol/L (22-29); Chloride 111 mmol/L (96-108); Creatinine Clr Calc Pharmacy 47.6; Estimated Glomerular Filt Rate 51; Glucose Fasting 102 mg/dL (60-99); Potassium 3.9 mmol/L (3.3-5.1); Sodium 138 mmol/L (135-145)
[2022-09-03] MEDS: Meclizine HCl 25 MG TABLET PO ×3 (08:35→20:50)
[2022-09-03] MEDS: amLODIPine Besylate 5 MG TABLET PO (08:35)
[2022-09-03] MEDS: 0.9 % Sodium Chloride Flush 3 ML SYRINGE IVFLUSH ×3 (08:35→20:51)
[2022-09-03 08:42] LABS: Glucose, Whole Blood 126 mg/dL (60-115)
[2022-09-03] MEDS: LORazepam 0.5 MG TABLET PO ×2 (11:40→18:50)
--- NOTE | 2022-09-03 12:24 | PC.NURSE ---
Pt educated on importance of bed alarm use, d/t vertigo and dizziness. When topic brought up with, pt became tearful and stated This is stupid, you people make me feel like an involant . Pt reassured that bed alarm was only for safty reasons only, pt continued to refuse, stated she will ring when she gets up to let us know. All other safety measures in place.
--- NOTE | 2022-09-03 12:48 | MHC.CM.PN ---
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
--- NOTE | 2022-09-03 15:34 | P.PNIM_ITS ---
Subjective Subjective Date of Service: 09/04/22 Interval History: feeling a little better, was unsteady when stood up complaining of persistent mild nausea and dizziness, no fevers no chills, denies speech impairment no visual symptoms, noted to have unsteady gait. Review of Systems Review of Systems: Yes all other systems are reviewed and are negative Physical Exam Vital Signs: Vital Signs: Last Vital Signs Temp 98.4 F 09/03/22 15:31 Pulse 84 09/03/22 15:31 Resp 17 09/03/22 15:31 BP 144/72 H 09/03/22 15:31 Pulse Ox 96 09/03/22 15:31 O2 Del Method Room Air 09/03/22 15:31 BMI result Body Mass Index 36.1 Const: Other: General resting comfortably in no acute distress. Eyes no nystagmus Neck supple no JVD. CVS regular rate rhythm, Respiratory lungs clear to auscultation, no respiratory distress, no wheeze, no rhonchi. Gastrointestinal abdomen soft, nontender, bowel sounds audible, no guarding , no rigidity. Extremities no edema. Neuro nonfocal , speech clear, unsteady gait as per physical therapist. Skin no rash psych appropriate affect Objective Data Active Medications Acetaminophen (Acetaminophen 325 Mg Tablet) 650 mg PO Q6H PRN PRN Reason: Pain, Mild (Pain Scale 1-3) Amlodipine Besylate (Amlodipine Besylate 5 Mg Tablet) 5 mg PO DAILY [facility]; Protocol Last Admin: 09/03/22 08:35 Dose: 5 mg Documented By: OLYA Docusate Sodium (Docusate Sodium 100 Mg Capsule) 100 mg PO DAILY PRN PRN Reason: Constipation Enoxaparin Sodium (Enoxaparin Sodium 40 Mg/0.4 Ml Syringe) 40 mg SUBCUT Q24H [facility] Last Admin: 09/02/22 19:30 Dose: 40 mg Documented By: MAGED Lorazepam (Lorazepam 0.5 Mg Tablet) 0.5 mg PO Q8H PRN PRN Reason: Anxiety Meclizine HCl (Meclizine Hcl 25 Mg Tablet) 25 mg PO TID [facility] Last Admin: 09/03/22 08:35 Dose: 25 mg Documented By: OLYA Ondansetron HCl (Ondansetron Hcl 4 Mg/2 Ml Vial) 4 mg IVPUSH Q8H PRN PRN Reason: Nausea and Vomiting Pharmacy Consult (Consult Rx Perform Med Rec) 1 each MISCELLANE ONCE PRN PRN Reason: Consult order Sodium Chloride (0.9 % Sodium Chloride Flush 3 Ml Syringe) 3 ml IVFLUSH QSHIFT [facility] Last Admin: 09/03/22 08:35 Dose: 3 ml Documented By: OLYA Labs 09/03/22 05:49 09/03/22 05:49 Labs: Laboratory Results - last 24 hr 09/02/22 09/02/22 09/02/22 15:27 15:27 15:27 MCV 94.3 MCH 30.1 MCHC 31.9 RDW 13.5 Plt Count 141 L MPV 10.2 Immature Gran % (Auto) 0.3 Neut % (Auto) 70.4 Lymph % (Auto) 20.0 [place] % (Auto) 6.3 Eos % (Auto) 2.2 Baso % (Auto) 0.8 Lymph # (Auto) 1.3 [place] # (Auto) 0.4 Eos # (Auto) 0.1 Baso # (Auto) 0.1 Abs Immat Gran (auto) 0.02 Absolute Neuts (auto) 4.6 Absolute Nucleated RBC 0.000 Nucleated RBC % (auto) 0.0 Anion Gap Estim Creat Clear Calc Estimated GFR POC Glucose Random Glucose Fasting Glucose Calcium Total Bilirubin AST ALT Alkaline Phosphatase Troponin I High Sens 16.5 D Total Protein Albumin Urine Color Urine Appearance Urine pH Ur Specific [place] Urine Protein Urine Glucose (UA) Urine Ketones Urine Blood Urine Nitrite Ur Leukocyte Esterase Urine RBC Urine WBC Ur Squamous Epith Cells Urine Bacteria Hyaline Casts COVID-19 ([facility]) Negative COVID-19 Clin Com See Note 09/02/22 09/02/22 09/02/22 15:51 16:15 21:53 MCV MCH MCHC RDW Plt Count MPV Immature Gran % (Auto) Neut % (Auto) Lymph % (Auto) [place] % (Auto) Eos % (Auto) Baso % (Auto) Lymph # (Auto) [place] # (Auto) Eos # (Auto) Baso # (Auto) Abs Immat Gran (auto) Absolute Neuts (auto) Absolute Nucleated RBC Nucleated RBC % (auto) Anion Gap 12 Estim Creat Clear Calc 52.2 Estimated GFR 60 POC Glucose 127 H Random Glucose 86 Fasting Glucose Calcium 8.6 Total Bilirubin 0.7 AST 87 H ALT 69 H Alkaline Phosphatase 94 Troponin I High Sens Total Protein 9.2 H Albumin 3.1 L Urine Color Yellow Urine Appearance Cloudy Urine pH 6.5 Ur Specific [place] 1.015 Urine Protein Trace Urine Glucose (UA) Negative Urine Ketones Negative Urine Blood Large (3+) H Urine Nitrite Negative Ur Leukocyte Esterase Large (3+) H Urine RBC >20 H Urine WBC >50 H Ur Squamous Epith Cells 0-2 Urine Bacteria None Seen Hyaline Casts 0-2 COVID-19 ([facility]) COVID-19 Clin Com 09/03/22 09/03/22 09/03/22 05:49 05:49 08:35 MCV 93.0 MCH 29.8 MCHC 32.0 RDW 13.4 Plt Count 128 L MPV 10.9 Immature Gran % (Auto) Neut % (Auto) Lymph % (Auto) [place] % (Auto) Eos % (Auto) Baso % (Auto) Lymph # (Auto) [place] # (Auto) Eos # (Auto) Baso # (Auto) Abs Immat Gran (auto) Absolute Neuts (auto) Absolute Nucleated RBC 0.000 Nucleated RBC % (auto) 0.0 Anion Gap 9 L Estim Creat Clear Calc 47.6 Estimated GFR 51 POC Glucose 126 H Random Glucose Fasting Glucose 102 H Calcium 8.5 Total Bilirubin AST ALT Alkaline Phosphatase Troponin I High Sens Total Protein Albumin Urine Color Urine Appearance Urine pH Ur Specific [place] Urine Protein Urine Glucose (UA) Urine Ketones Urine Blood Urine Nitrite Ur Leukocyte Esterase Urine RBC Urine WBC Ur Squamous Epith Cells Urine Bacteria Hyaline Casts COVID-19 ([facility]) COVID-19 Clin Com Microbiology Microbiology Results: Microbiology 09/02/22 16:28 Urine Culture - Preliminary Urine clean catch - Urine faith top Culture in progress. Assessment and Plan (1) Vertigo: Status: Acute Plan 67-year-old female with history of type 2 diabetes, hypertension, coronary artery disease, mild intermittent asthma, history nephrolithiasis, and history of vertigo to be observed overnight for further evaluation and work up of severe vertigo. #Acute vertigo -sudden onset lasting >1hr with nausea vomiting. -+right-sided horizontal nystagmus,on admission, not present today, has unsteady gait -CT head without acute abnormality. MRI brain w/wo contract ordered for further evaluation to rule out cerebellar CVA -Meclizine 25mg TID Seen by Physical therapy they recommend patient is not safe for discharge home due to unsteady gait and lightheadedness #Abnormal UA -3+ leuks, 3+ blood, positive urinary sediment, negative bacteria. -Pt asymptomatic -Await cultures. Hold on empiric tx for UTI #HTN -appears noncompliant with meds, on amlodipine 5mg #Controlled type 2 diabetes -Diabetic diet,POC glucose #mild intermittent asthma -no exacerbation, albuterol prn #CAD -not on asa, statin, bb,no anginal cp, ekg nonischemic dvt prophylaxis- lovenox full code Time Spent With Patient Time: Total time managing care of this patient today ____ minutes. Quality Stroke Does the patient have a stroke diagnosis?: No VTE Prior VTE?: No VTE Risk Level:: Medical - moderate - high VTE Device Contraindication: Treatment Not Indicated VTE Drug Contraindication: N/A - Med Ordered
[2022-09-03 17:00] LABS: Glucose, Whole Blood 102 mg/dL (60-115)
--- NOTE | 2022-09-03 17:17 | PC.NURSE ---
AM Blood pressure elevated MD Rollins aware, Pt denies any SOB or chest discomfort, all other VSS. AM medication given, next blood pressure 144/82.
--- NOTE | 2022-09-03 17:39 | PC.NURSE ---
Pt refused SQ MD Ayo Arciniega made aware VIA [place] text. Education provided on medication purpose, Pt states she understands risk factors of DVTs while in hospital but continues to decline medication.
[2022-09-04] VITALS (11 sets, daily range): BP systolic 124–181; BP diastolic 63–81; PULSE 71–98; RESP 16–18; TEMP 36–36.7; O2SAT 95–97
[2022-09-04] MEDS: amLODIPine Besylate 5 MG TABLET PO (07:58)
[2022-09-04] MEDS: 0.9 % Sodium Chloride Flush 3 ML SYRINGE IVFLUSH ×2 (07:58→21:33)
[2022-09-04] MEDS: 0.9 % Sodium Chloride 500 ML 100 ML IVCONT (11:15)
--- NOTE | 2022-09-04 13:34 | MHC.CM.PN ---
per rounds a physical therapy eval ordered who receomneds home
--- NOTE | 2022-09-04 15:04 | PC.NURSE ---
Addendum entered by Nimo Stratton RN 09/04/22 15:12: Orthostatic blood pressures negative MD aware. Original Note: MD Rollins made aware this AM pt refusing Meclizine, Pt states this medication is making me drowsy , discontinued medication. placed new orders for 500ML total of NaCl 100ML/HR, IVF running as ordered. Attempted to ambulate Pt in hallway at 1426, Pt was able to take about 10 steps into the hallway and reported dizziness, pt was able to ambulate back to the room with MD Shweta aware. Pt continues to refuse bed alarm, education provided to pt regarding fall risk due to dizziness, pt continues to refuse alarm despite education. Pt allows for all other safety precautions, falls bracelet, star outside of room, low bed, and red skid proof socks, pt verbalizes that she will ring when she needs to get out of bed. Pt provided with frequent education and reminders to ring young for assistance.
--- NOTE | 2022-09-04 15:21 | HO.PM.IMPN ---
Subjective Subjective Date of Service: 09/05/22 Interval History: Complaining of lightheadedness this morning attempted to work with physical therapy remain lightheaded and unsteady, denies dizziness, no chest pain, no shortness of breath tolerating diet no nausea, no vomiting, orthostatic studies showed tachycardia with standing otherwise unremarkable. Review of Systems Review of Systems: Yes all other systems are reviewed and are negative Physical Exam Vital Signs: Vital Signs: Last Vital Signs Temp 98.1 F 09/04/22 07:47 Pulse 98 09/04/22 10:19 Resp 18 09/04/22 07:47 BP 142/80 H 09/04/22 10:19 Pulse Ox 95 09/04/22 07:47 O2 Del Method Room Air 09/04/22 07:47 BMI result Body Mass Index 36.1 Const: Other: General resting comfortably in no acute distress.? Eyes no nystagmus Neck supple no JVD. CVS? regular rate rhythm, Respiratory lungs clear to auscultation, no respiratory distress, no wheeze, no rhonchi. Gastrointestinal abdomen soft, nontender, bowel sounds audible, no guarding , no rigidity. Extremities no edema. Neuro nonfocal , speech clear, unsteady gait . Skin no rash psych appropriate affect Objective Data Active Medications Acetaminophen (Acetaminophen 325 Mg Tablet) 650 mg PO Q6H PRN PRN Reason: Pain, Mild (Pain Scale 1-3) Amlodipine Besylate (Amlodipine Besylate 5 Mg Tablet) 5 mg PO DAILY [facility]; Protocol Last Admin: 09/04/22 07:58 Dose: 5 mg Documented By: OLYA Docusate Sodium (Docusate Sodium 100 Mg Capsule) 100 mg PO DAILY PRN PRN Reason: Constipation Enoxaparin Sodium (Enoxaparin Sodium 40 Mg/0.4 Ml Syringe) 40 mg SUBCUT Q24H [facility] Last Admin: 09/03/22 17:31 Dose: Not Given Documented By: OLYA Non-Admin Reason: Patient Refused Sodium Chloride (Ns) 500 mls @ 100 mls/hr IVCONT .Q5H PATRICIA Stop: 09/04/22 16:14 Last Admin: 09/04/22 11:15 Dose: 100 mls/hr Documented By: OLYA Ondansetron HCl (Ondansetron Hcl 4 Mg/2 Ml Vial) 4 mg IVPUSH Q8H PRN PRN Reason: Nausea and Vomiting Pharmacy Consult (Consult Rx Perform Med Rec) 1 each MISCELLANE ONCE PRN PRN Reason: Consult order Sodium Chloride (0.9 % Sodium Chloride Flush 3 Ml Syringe) 3 ml IVFLUSH QSHIFT [facility] Last Admin: 09/04/22 07:58 Dose: 3 ml Documented By: OLYA Labs 09/03/22 05:49 09/03/22 05:49 Labs: Laboratory Results - last 24 hr 09/03/22 16:57 POC Glucose 102 Microbiology Microbiology Results: Microbiology 09/02/22 16:28 Urine Culture - Final Urine clean catch - Urine faith top Assessment and Plan (1) Vertigo: Status: Acute Plan 67-year-old female with history of type 2 diabetes, hypertension, coronary artery disease, mild intermittent asthma, history nephrolithiasis, and history of vertigo to be observed overnight for further evaluation and work up of severe vertigo. #Acute vertigo -dizziness resolved, MRI brain showed no acute abnormality, normal neuro examination Complaining of lightheadedness with persistent unsteady gait Unremarkable orthostatic studies Question related to meclizine/as needed Ativan/and resumption of Norvasc Will treat with IV fluid hold all medications Follow clinical course #Abnormal UA -3+ leuks, 3+ blood, positive urinary sediment, negative bacteria. -Pt asymptomatic, urine culture unremarkable, antibiotic not warranted #HTN -elevated blood pressures patient noncompliant with home medications will DC amlodipine question causing lightheadedness if BP elevated will recommend low-dose beta-blockers. #Controlled type 2 diabetes -Diabetic diet,POC glucose #mild intermittent asthma -no exacerbation, albuterol prn #CAD -not on asa, statin, bb,no anginal cp, ekg nonischemic dvt prophylaxis- lovenox full code On follow-up later in the day patient continue to be lightheaded with unsteady gait therefore will continue to monitor overnight Time Spent With Patient Time: Total time managing care of this patient today ____ minutes. Quality Stroke Does the patient have a stroke diagnosis?: No VTE Prior VTE?: No VTE Risk Level:: Medical - moderate - high VTE Device Contraindication: Treatment Not Indicated VTE Drug Contraindication: N/A - Med Ordered
[2022-09-05 03:55] VITALS: BP 151/75; PULSE 80; RESP 16; TEMP 36.3; O2SAT 95
[2022-09-05 04:04] VITALS: BP 126/72; PULSE 85
[2022-09-05 06:05] VITALS: BP 144/74; PULSE 92
[2022-09-05 06:06] VITALS: BP 147/80; PULSE 100
[2022-09-05 06:57] LABS: Anion Gap 9 (12-20); Blood Urea Nitrogen 21 mg/dL (9-16); Calcium 8.3 mg/dL (8.4-10.2); Carbon Dioxide 22 mmol/L (22-29); Chloride 108 mmol/L (96-108); Estimated Glomerular Filt Rate 57; Glucose Random 156 mg/dL (60-115); Potassium 3.6 mmol/L (3.3-5.1); Sodium 135 mmol/L (135-145)
[2022-09-05 08:00] VITALS: BP 150/76; PULSE 73; RESP 18; TEMP 36.4; O2SAT 97
--- NOTE | 2022-09-05 12:54 | PM.DS ---
DS: Providers Provider Date of Service: 09/05/22 Date of admission: 09/02/22 17:52 Primary care physician: Taryn Holt NP DS: Diagnosis Discharge Diagnosis (1) Vertigo: Status: Acute DS: Summary Hospital Course Hospital Course: History of presenting illness: Date of Service: 09/02/22 Attending physician on admission: Yusef Park Chief Complaint: vertigo 67-year-old female with history of type 2 diabetes, hypertension, coronary artery disease, mild intermittent asthma, history nephrolithiasis, and history of vertigo presents to the ED for evaluation of dizziness.? She was seen yesterday in the ER for same sensation was thought to have vertigo was prescribed meclizine.? 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 She describes the room spinning sensation associated with nausea and vomiting.? At that time, gait was very unsteady and her coworkers called EMS.? She denies any associated headaches, hearing loss, tinnitus, or lightheadedness.? She was given a dose of 25 mg meclizine in the ED with some improvement in symptoms.? She has been able to ambulate to the bathroom without difficulty and denies any recurrent nausea or vomiting.? She denies any dizziness currently.? No visual changes.? On arrival, patient hypertensive to 166/85, vital signs otherwise normal.? Hematology studies unremarkable.? Renal function normal, electrolyte levels without significant abnormality.? AST 87, ALT 69, total bilirubin 0.7.? Head CT is without any acute intracranial pathology. Given persistence of symptoms and severity with which they recurred, patient will be observed overnight. Hospital course: 67-year-old female with history of type 2 diabetes, hypertension, coronary artery disease, mild intermittent asthma, history nephrolithiasis, and history of vertigo to be observed overnight for further evaluation and work up of severe vertigo. #Acute vertigo,dizziness resolved, MRI brain showed no acute abnormality, normal neuro examination, unknown etiology, unremarkable orthostatic studies, patient treated with meclizine and Ativan prior to MRI noted to have lightheadedness and unsteady gait therefore was treated with IV fluid, lightheadedness and unsteady gait has now resolved, she is recommended to have close outpatient follow-up with PCP #Abnormal UA -3+ leuks, 3+ blood, positive urinary sediment, negative bacteria, urine culture unremarkable not recall. -Pt asymptomatic, urine culture unremarkable, antibiotic not warranted #HTN -elevated blood pressures ,noncompliant with home medications , 1 dose of amlodipine was given but patient developed lightheadedness, recommend outpatient follow-up with Cardiology and PCP and consider to resume low-dose beta-blockers. #Controlled type 2 diabetes -continue diabetic diet #mild intermittent asthma -no exacerbation, albuterol prn #CAD -not on asa, statin, bb,no anginal cp, ekg nonischemic Time Spent with Patient Time attestation: Total time managing care of this patient today ____ minutes. Discharge coordination time: Greater than 30 minutes Quality: Safe Use of Opioids Does Pt have an Active Cancer Diagnosis on the Problem List?: No Quality: Stroke Does the patient have a stroke diagnosis?: No Physical Exam Vital Signs: Vital Signs: Last Vital Signs Temp 97.5 F 09/05/22 08:00 Pulse 73 09/05/22 08:00 Resp 18 09/05/22 08:00 BP 150/76 H 09/05/22 08:00 Pulse Ox 97 09/05/22 08:00 O2 Del Method Room Air 09/05/22 08:00 BMI result Body Mass Index 36.1 Const: Other: General resting comfortably in no acute distress.? Eyes no nystagmus Neck supple no JVD. CVS? regular rate rhythm, Respiratory lungs clear to auscultation, no respiratory distress, no wheeze, no rhonchi. Gastrointestinal abdomen soft, nontender, bowel sounds audible, no guarding , no rigidity. Extremities no edema. Neuro nonfocal , speech clear, steady gait . Skin no rash psych appropriate affect DS: Data Data Completed and Pending Labs on day of discharge: Laboratory Results - last 24 hr 09/05/22 05:50 Sodium 135 Potassium 3.6 Chloride 108 Carbon Dioxide 22 Anion Gap 9 L BUN 21 H Creatinine 0.98 Estim Creat Clear Calc 52.0 Estimated GFR 57 Random Glucose 156 H Calcium 8.3 L Discharge Plan Discharge Patient Disposition: Home, Self-Care Discharge Diagnosis: Vertigo Referrals: Taryn Holt NP [Primary Care Provider] - 1 Week Discharge Medications: Continued meclizine 25 mg tablet 25 mg PO TID PRN (Reason: dizziness) Qty: 20 0RF Discharge Orders: Discharge Order (Routine); Ordered 09/05/22 Ordered By: Marietta Rollins Diet: Advance to usual diet Activity on Discharge: As tolerated Stand Alone Forms: Patient Portal Discharge page, Work/School Release Care Plan Goals: Vertigo resolved Hypertension not taking antihypertensive regularly recommend to follow up with Cardiology/primary care physician and resume low-dose beta-blockers Likely intolerant to Norvasc Health Concerns: Recurrent vertigo/lightheadedness Plan of Treatment: 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
== END 2022-09-05 13:11 | disposition home or self-care (01) ==
LOC: HO.ED 16:56 → HO.EDOVER 18:03 → HO.S3 18:42
PROVIDERS: Internal Medicine; Admitting Provider Physician Assistant; Emergency Provider Emergency Medicine; PCP Hospitalist; Visit Provider Hospitalist
DX: R42 Dizziness and giddiness (principal); R82.90 Unspecified abnormal findings in urine; E11.9 Type 2 diabetes mellitus without complications; I10 Essential (primary) hypertension; I25.10 Atherosclerotic heart disease of native coronary artery without angina pectoris; J45.20 Mild intermittent asthma, uncomplicated; Z79.899 Other long term (current) drug therapy; Z20.822 Contact with and (suspected) exposure to COVID-19
CPT/HCPCS: 36415; 70450; 70551; 80048; 80053; 81001; 81003; 82947; 84484; 85025; 85027; 87086; 87635; 93005; 96360; 96361; 96372; 97116; 97161; 99221; 99285; J1650

== ENCOUNTER 2023-04-21 14:52 | Outpatient (AMB) | payer OTHER, SELFPAY ==
--- NOTE | 2023-04-21 15:00 | A.OFFPC_ITS ---
Vital Signs 04/21/23 15:03 04/21/23 15:37 Height 4 ft 11 in Weight 181 lb 6 oz BMI 36.6 BP 144/86 H 134/82 Blood Pressure Location Rt brachial Lt brachial Position Sitting Sitting Respiration 13 Pulse 88 Pulse Source Pulse Oximeter Temp 97.7 F Temp Source Temporal Artery Scan Pulse Oximetry (%) 99 Oxygen Delivery Method Room Air Intake Visit Reasons: Transfer of care, f/u HTN Intake Note: Patient states that she was having problems with her sinuses and throat. Patient states that she couldnt swallow pills or take anything that was too big to swallow due to her gagging and choking on whatever it is. Patient states that she was told that she may need to have surgery to expand her airways. Patient states that she would like to discuss what she needs to do in order to get her throat and sinuses checked out. 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 Accompanied by: Self / Same As Patient Allergies peach [PEACH] Allergy (Intermediate, Verified 04/21/23 15:43) DIFFICULTY BREATHING Medication List - Last Reconciled 04/21/23 by Sandoval Johnston CNP albuterol 90 mcg/actuation mcg inhalation Tobacco use date assessed: 04/21/23 Fall risk assessment: No Falls in past year Last assessed Fall Risk: 04/21/23 Dental Screening Dental Screen Date: 04/21/23 Did you have a dental visit in the last 12 months?: No Did you have a dental problem in the last 6 months where you did not have access to dental care?: No Was dental information given to patient?: Yes HPI HPI Comments History of Present Illness Details 67-year-old female presents to establish care. She was scheduled to establish care with but her appointment was cancelled numerous times by the provider Her last office visit was on 04/09/2022. Her last blood work was in August 2021, revealed hypocalcemia, thrombocytopenia, and elevated AST and ALT She has history of CAD, hypertension, type 2 diabetes, asthma, and obesity. She notes her type 2 diabetes was never managed. She notes she cannot swallow pills due to history of gagging and choking She was on amlodipine for hypertension. She stopped taking the medication several months ago. She notes she continues to take daily baby aspirin daily She offers no complaints and denies acute symptoms at this time She states that her last eye exam with Dr. Watts was a few months ago [facility] Medical History Diabetes CAD (coronary artery disease) Rhabdomyolysis Atherosclerotic cardiovascular disease Obesity Asthma Urgency incontinence Renal stones Surgical History Hx of lithotripsy S/P cardiac catheterization Hx laparoscopic cholecystectomy History of carpal tunnel release H/O colonoscopy Hx of cataract extraction Hx of cystoscopy Family History Father No problems noted. Mother No problems noted. Social History Household Members: None Housing: Apartment Do you presently have visiting nurse or other home services: No Alcohol intake: current Alcohol intake frequency: holidays/special occasions only Patient Tobacco Use Status: Never used Tobacco e-Cigarette/Vaping Use: Never Used Second Hand Smoke Exposure: No service: No Current occupational status: employed Current occupation: [employer] Cognitive needs: No Hearing needs: No Vision needs: No Questionnaire PHQ-9 Over the last 2 weeks, how often have you been bothered by any of the following problems? 1. Little interest or pleasure in doing things: not at all 2. Feeling down, depressed, or hopeless: not at all 3. Trouble falling or staying asleep, or sleeping too much: not at all 4. Feeling tired or having little energy: not at all 5. Poor appetite or overeating: not at all 6. Feeling bad about yourself - or that you are a failure or have let yourself or your family down: not at all 7. Trouble concentrating on things, such as reading the newspaper or watching television: not at all 8. Moving or speaking so slowly that other people could have noticed. Or the opposite - being so fidgety or restless that you have been moving around a lot more than usual: not at all 9. Thoughts that you would be better off or of hurting yourself in some way: not at all Total score: 0 Depression Screening Interpretation: Negative Depression Screening Done: Yes 21113 - PHQ-9 Billing: Yes Source: Developed by Drs. Javier Marcos, Danielle Kimble, Dawson Oates and colleagues, with an educational wilbur from [employer]. Thrive Questionnaire Date Thrive assessed: 04/21/23 I am a: Patient What is your living situation today?: I have a steady place to live Within the past 12 months, did the food you bought not last and you didn't have the money to get more?: Never true Within the past 12 months, did you worry whether your food would run out before you got money to buy more?: Never true Do you have trouble paying for medicines?: No Do you have trouble getting transportation to medical appointments?: No Do you have trouble paying your heating and electricity bill?: No Do you have trouble taking care of your child, family member or friend?: No Do you have trouble with day-to-day activities such as bathing, preparing meals, shopping, managing finances, etc.?: No Are you currently unemployed and looking for a job?: No Are you interested in more education?: No Please select the resources that you would like help with: None Currently or been in a relationship where the following occur: no concerns reported AUDIT C Alcohol Use Questionnaire (AUDIT-C) 1. How often do you have a drink containing alcohol?: 2-4 times a month 2. How many drinks containing alcohol do you have on a typical day when you are drinking?: 1 or 2 3. How often do you have six or more drinks on one occasion?: Never Total Score: 2 RICKY-7 AMB Questionnaire RICKY-7 Date RICKY - 7 assessed: 04/21/23 Feeling nervous, anxious, or on edge: 0 = Not at all Not being able to stop or control worryin = Not at all Worrying too much about different things: 0 = Not at all Trouble relaxin = Not at all Being so restless that it is hard to sit still: 0 = Not at all Becoming easily annoyed or irritable: 0 = Not at all Feeling afraid as if something awful might happen: 0 = Not at all Total RICKY-7 score (0-4 normal; 5-9 mild; 10-14 moderate; 15-21 severe): 0 Source: Developed by Drs. Javier Marcos, Danielle Kimble, Dawson Oates and colleagues, with an educational wilbur from [employer]. RICKY-7 Assessment Billing RICKY-7 Assessment Tool: RICKY-7 Assessment 26518 ACT Questionnaire In the past 4 weeks, how much of the time did your asthma keep you from getting as much done at work, school or at home?: A little of the time During the past 4 weeks, how often have you had shortness of breath?: 1-2 times a week During the past 4 weeks, how often did your asthma symptoms wake you up at night or earlier than usual in the morning?: Not at all During the past 4 weeks, how often have you had to use your rescue inhaler or nebulizer medication?: 2-3 times a week How would you rate your asthma control during the past 4 weeks?: Well controlled ACT Interpretation: Positive Score: 20 Review of Systems Const Details: Const Denies chills, Denies fatigue, Denies fever(s), Denies headache(s) and Denies weakness ENT Denies dizziness and Denies headache(s) Card Denies chest pain, Denies lightheadedness, Denies dyspnea and Denies other (Palpitations) Resp Denies cough, Denies dyspnea, Denies wheezing and Denies other ( shortness of breath) GI Denies abdominal pain, Denies melena, Denies hematochezia, Denies change in bowel habits, Denies dyspepsia and Denies nausea Denies hematuria and Denies dysuria Musc Denies abnormal gait, Denies myalgias, Denies arthralgias, Denies numbness and Denies tingling Skin/Breast Denies rash, Denies unusual bruising and Denies wounds Neuro Denies abnormal gait, Denies dizziness, Denies headache(s), Denies memory loss, Denies numbness, Denies Sensory deficit (Neuro), Denies tingling and Denies weakness Psych Denies anxiety, Denies depression, Denies memory loss Endo Denies cold intolerance, Denies fatigue, Denies heat intolerance, Denies polydipsia and Denies polyuria Aller/Immun Denies wheezing Physical exam (Primary Care) Vital Signs: Last Vital Signs Temp 97.7 F 04/21/23 15:03 Pulse 88 04/21/23 15:03 Resp 13 04/21/23 15:03 BP 134/82 04/21/23 15:37 Pulse Ox 99 04/21/23 15:03 Oxygen Delivery Method Room Air 04/21/23 15:03 BMI result Body Mass Index 36.6 Tobacco/Smoking Status: Tobacco use Status Tobacco use date assessed 04/21/23 04/21/23 15:17 Patient Tobacco Use Status Never used Tobacco 04/21/23 15:17 e-Cigarette/Vaping Use Never Used 04/21/23 15:17 PHQ-9: PHQ-9 Score PHQ-9: Total score 0 04/21/23 15:20 Depression Screening Interpretation: Negative Thrive Assessment: Date of Thrive Assessment Date Thrive assessed 04/21/23 04/21/23 15:20 Currently or been in a relationship where the following occur: no concerns reported Const Other: General: no acute distress and well developed Nutritional Appearance: well nourished Orientation/consciousness: patient oriented x3 HENMT Head: Yes normocephalic and Yes atraumatic Eyes General: appearance normal, both eyes and all related structures Pupils: Equal, round and reactive pupils present EOM: EOMs intact bilaterally Resp Effort & Inspection: normal respiratory effort Auscultation: clear to auscultation bilaterally Cardio Rate: regular rate Rhythm: regular rhythm Heart sounds: S1 normal heart sound present, S2 normal heart sound present, no gallops, no murmurs and no rubs GI Palpation (GI): No Abdominal aortic bruit present, Soft to palpation, nontender, No hepatosplenomegaly present and No Rebound tenderness present Auscultation: normal bowel sounds General: Yes no CVA tenderness Back/Spine/Pelvis Back: no CVA tenderness Cervical Spine: cervical ROM normal and No Cervical spine tenderness Thoracic/Lumbar Spine: thoraco-lumbar ROM normal, No pain with thoraco-lumbar ROM, No thoracic spinal tenderness and No lumbar spinal tenderness Extrem General: Yes normal to inspection, No edema and No calf tenderness Skin General: warm and dry. Normal skin color. Normal skin turgor Neuro General: patient oriented x3, gait normal and no focal neuro deficit Cranial nerves: Yes Equal, round and reactive pupils present Cognition (Neuro): normal cognition Gait exam (Neuro): Normal gait present Sensory Exam: No Sensory deficit (Neuro) Psych Appearance: grossly normal Affect: normal affect Attitude: cooperative Thought process: Normal thought process present Results AMB Hemoglobin A1c AMB Hemoglobin A1c 6.6 % Last Edit by Imani Lima MA on 04/21/23 15:47 Results Reviewed Results Reviewed: Laboratory Last Values Hgb A1c (Clinic) 6.6 % (4.0-6.0) H 04/21/23 15:45 Assessment and Plan Assessment & Plan (1) Hypertension: Code(s): I10 - Essential (primary) hypertension Plan: Resting blood pressure is 134/82, slightly above goal of less than 130/80 Amlodipine ordered. Take as prescribed. May crush the medication Low-sodium diet encouraged Follow-up in 1 month or return sooner with symptoms or concerns Verbalized understanding and agreed with treatment plan (2) Hypocalcemia: Code(s): E83.51 - Hypocalcemia Plan: History of low calcium Labs ordered. Will make changes as needed (3) Transaminitis: Code(s): R74.01 - Elevation of levels of liver transaminase levels Plan: History of elevated AST and ALT levels Labs ordered. Will make changes as needed (4) Type 2 diabetes mellitus with unspecified complications: Code(s): E11.8 - Type 2 diabetes mellitus with unspecified complications Plan: Her A1c 6.6% today, within goal of less than 7.0% Metformin ordered. Take as prescribed. May crush the medication ADA diet and routine exercise encouraged Will recheck A1c in 3 months Will request record from Ophthalmology for eye exam Follow-up in 1 month for hypertension and labs review or return sooner with symptoms or concerns Verbalized understanding and agreed with treatment plan (5) Obesity (BMI 30-39.9): Code(s): E66.9 - Obesity, unspecified Plan: She currently weighs 181 lb, BMI is 36.6 She admits to making on healthy dietary choices. She notes that she works at [employer] and walks long distances Healthy diet and routine exercise encouraged Follow-up with symptoms or concerns Verbalized understanding and agreed with treatment plan Orders: Orders Comprehensive [place]. Panel Fast 04/21/23 R74.01 - Elevation of levels of liver transaminase levels, Z00.00 - Encounter for general adult medical examination without abnormal findings Lipid Panel 04/21/23 Z00.00 - Encounter for general adult medical examination without abnormal findings TSH reflex Free T4 04/21/23 Z00.00 - Encounter for general adult medical examination without abnormal findings Complete Blood Count Auto Diff 04/21/23 D69.6 - Thrombocytopenia, unspecified, Z00.00 - Encounter for general adult medical examination without abnormal findings UA CC w/rflx Micro + Cult 04/21/23 Z00.00 - Encounter for general adult medical examination without abnormal findings AMB Hemoglobin A1c 04/21/23 Z13.9 - Encounter for screening, unspecified Microalbumin, Random (w Creat) 04/21/23 E11.8 - Type 2 diabetes mellitus with unspecified complications Medications: New amlodipine 2.5 mg PO DAILY 30 days 30 tabs 3RF metformin 500 mg PO DAILY 30 days 30 tabs 3RF Changed From aspirin 81 mg PO DAILY To aspirin (Adult Low Dose Aspirin) 81 mg PO DAILY 90 days 90 tabs 1RF Coding Level of Care Code Est Pt Level 4 (33805) Diagnoses Hypertension I10 Hypocalcemia E83.51 Transaminitis R74.01 Type 2 diabetes mellitus with unspecified complications E11.8 Obesity (BMI 30-39.9) E66.9 Additional Codes RICKY-7 Assessment Billing - RICKY-7 Assessment Tool: RICKY-7 Assessment 26549 ([id number])
[2023-04-21 15:03] VITALS: BP 144/86; PULSE 88; RESP 13; TEMP 36.5; O2SAT 99; BMI 36.6
[2023-04-21 15:37] VITALS: BP 134/82
== END 2023-04-21 15:59 | disposition home or self-care (01) ==
PROVIDERS: PCP Hospitalist; Visit Provider Nurse Practitioner Family
DX: I10 Essential (primary) hypertension (principal); E11.8 Type 2 diabetes mellitus with unspecified complications; E83.51 Hypocalcemia; Z68.36 Body mass index [BMI] 36.0-36.9, adult; R74.01 Elevation of levels of liver transaminase levels; E66.9 Obesity, unspecified
CPT/HCPCS: 99214

== ENCOUNTER 2023-09-08 14:36 | Outpatient (AMB) | payer OTHER, SELFPAY ==
--- NOTE | 2023-09-08 14:45 | A.OFFVIS_ITS ---
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 To recall, in September 2020, she had NSTEMI and underwent circumflex stenting. More recently, another hospitalization to [facility] for NSTEMI. It seems that she underwent cardiac catheterization and LAD stenting. Overall, nonspecific complaints like not feeling good but nothing clear-cut cardiac. In the past, she also had an admission for rhabdomyolysis. Question of statin related but she went back on statins after that anyway. Currently, she is listed to be on statins after the NSTEMI. [facility] Medical History Diabetes CAD (coronary artery disease) Rhabdomyolysis Atherosclerotic cardiovascular disease Obesity Asthma Urgency incontinence Renal stones Surgical History Hx of lithotripsy S/P cardiac catheterization Hx laparoscopic cholecystectomy History of carpal tunnel release H/O colonoscopy Hx of cataract extraction Hx of cystoscopy Family History Father No problems noted. Mother No problems noted. Social History Household Members: None Housing: Apartment Do you presently have visiting nurse or other home services: No Alcohol intake: current Alcohol intake frequency: holidays/special occasions only Patient Tobacco Use Status: Never used Tobacco e-Cigarette/Vaping Use: Never Used Second Hand Smoke Exposure: No service: No Current occupational status: employed Current occupation: [employer] Cognitive needs: No Hearing needs: No Vision needs: No Review of Systems Const Denies chills, Denies fatigue, Denies fever(s), Denies frequent falls, Denies weakness, Denies weight gain and Denies weight loss ENT Denies dizziness Card Denies chest pain, Denies leg edema, Denies lightheadedness, Denies palpitations, Denies dyspnea, Denies dyspnea on exertion, Denies orthopnea and Denies other (loss of consciousness) Resp Denies cough, Denies dyspnea and Denies dyspnea on exertion GI Denies hematochezia and Denies change in stool character Musc Denies abnormal gait, Denies muscle weakness, Denies numbness, Denies radiating pain into limb and Denies tingling Neuro Denies abnormal gait, Denies dizziness, Denies frequent falls, Denies numbness, Denies tingling and Denies weakness Endo Denies fatigue and Denies palpitations Physical Exam Vital Signs: Last Vital Signs Pulse 70 09/08/23 14:46 BP 112/64 09/08/23 14:46 BMI result Body Mass Index 33.8 Const General: comfortable and no acute distress Orientation/consciousness: patient oriented x3 HEENT Other: Unremarkable Head: Yes normal to inspection Neck Neck: Yes normal visual inspection Chest Chest palpation & inspection: normal inspection of the chest Resp Auscultation: clear to auscultation bilaterally Cardio Palpation: normal PMI Heart sounds: S1 normal heart sound present, S2 normal heart sound present, no gallops, no murmurs and no rubs GI Palpation (GI): Soft to palpation Back/Spine/Pelvis Other: unremarkable Skin General skin exam: no rashes or lesions noted Neuro General: patient oriented x3 Extrem General: Yes normal to inspection Psych Mental Status: mental status grossly normal Assessment & Plan Assessment & Plan (1) Atherosclerotic cardiovascular disease: Code(s): I25.10 - Atherosclerotic heart disease of [place] coronary artery without angina pectoris Category: Medical (2) Non-ST elevation [place] (NSTEMI): Code(s): I21.4 - Non-ST elevation (NSTEMI) myocardial infarction Category: Medical (3) Cirrhosis of liver: Code(s): K74.60 - Unspecified cirrhosis of liver Category: Medical Plan Most recent cardiac catheterization data reviewed. Proximal LAD with 95% stenosis status post drug-eluting stent. Patent stent in the circumflex. Mid RCA with 60% stenosis. Continue long-term aspirin. For [place], continue for 1 year. Continue beta-blockers. She is on statins but there is a question of statin induced rhabdomyolysis in the past. We can continue to monitor. Possibly check CKs in the future. There is indeed CK from [facility] which does not seem too high. Otherwise, PCSK9 inhibitors but in the past, she refused them. LDL cholesterol 56 mg/dL and triglycerides 54 mg/dL per [facility] labs. With regard to the question of cirrhosis, [facility] notes state that CT scan had shown cirrhosis with splenomegaly. Hepatitis panel was apparently negative. LFTs were elevated. Question of nonalcoholic fatty liver disease. It seems they called [facility] GI but patient would like to just see [facility]. Referral placed. She can also go for cardiac rehabilitation. Follow-up in 3 months. Orders: Orders Cardiac Rehab Today Z95.5 - Presence of coronary angioplasty implant and graft Referrals Gastroenterology Referral K74.60 - Unspecified cirrhosis of liver Coding Level of Care Code Est Pt Level 4 (06339) Diagnoses Atherosclerotic cardiovascular disease I25.10 Non-ST elevation [place] (NSTEMI) I21.4 Cirrhosis of liver K74.60
[2023-09-08 14:46] VITALS: BP 112/64; PULSE 70; BMI 33.8
== END 2023-09-08 15:10 | disposition home or self-care (01) ==
PROVIDERS: PCP Nurse Practitioner Family; Visit Provider Internal Medicine
DX: I25.10 Atherosclerotic heart disease of native coronary artery without angina pectoris (principal); I21.4 Non-ST elevation (NSTEMI) myocardial infarction; K74.60 Unspecified cirrhosis of liver
CPT/HCPCS: 99214

== ENCOUNTER → 2023-09-08 14:36 | Outpatient (BNVA) | payer OTHER, SELFPAY | PROVIDERS: PCP Nurse Practitioner Family; Visit Provider Internal Medicine ==

== ENCOUNTER → 2023-10-19 08:30 | Outpatient (BNV) | payer OTHER, SELFPAY | PROVIDERS: PCP Nurse Practitioner Family; Visit Provider Radiology Diagnostic Radiology | DX: Z12.31 Encounter for screening mammogram for malignant neoplasm of breast (principal) | CPT/HCPCS: 77063; 77067 ==

== ENCOUNTER 2023-10-19 08:35 | Outpatient (REF) | payer OTHER, SELFPAY ==
--- NOTE | ~2023-10-19 | MM_ITS ---
EXAMINATION: MM SCREENING DIGITAL BREAST TOMOSYNTHESIS, BILATERAL CLINICAL INFORMATION: Screening. Asymptomatic. COMPARISON: Mammography: This study is compared with prior exams dating back to 2019. TECHNIQUE: Digital breast tomosynthesis is performed in both the craniocaudal and mediolateral oblique views along with computer-aided detection (CAD). Synthesized 2D images are generated from the tomosynthesis. FINDINGS: The breasts are almost entirely fatty (ACR BI-RADS breast composition Category a). There are no significant masses, abnormal calcifications, or other abnormalities. There are 2 tissue markers in the right breast from prior benign percutaneous biopsies. MM/MM tomosynthesis screening BI IMPRESSION: No mammographic evidence of malignancy. ASSESSMENT: BI-RADS BI-RADS 2 - Benign Findings RECOMMENDATION: Routine annual mammography screening. 1 year F/U This examination should not preclude the clinical evaluation of a suspicious palpable abnormality. This patient's information was entered into a reminder system with a target due date for their next mammogram.
== END 2023-10-19 08:36 | disposition home or self-care (01) ==
LOC: HO.MAMMO 08:35
PROVIDERS: PCP Nurse Practitioner Family; Visit Provider Nurse Practitioner Family
DX: Z12.31 Encounter for screening mammogram for malignant neoplasm of breast (principal)
CPT/HCPCS: 77063; 77067

== ENCOUNTER 2023-10-21 08:58 | Outpatient (AMB) | payer OTHER, SELFPAY ==
[2023-10-21 09:12] VITALS: BP 146/78; PULSE 105; TEMP 36.4; O2SAT 98; BMI 33.5
--- NOTE | 2023-10-21 09:12 | A.OFFPC_ITS ---
Vital Signs 10/21/23 09:12 10/21/23 10:03 Height 4 ft 11 in Weight 166 lb BMI 33.5 BP 146/78 H 128/84 Blood Pressure Location Lt brachial Rt brachial Position Sitting Pulse 105 H Pulse Source Pulse Oximeter Temp 97.6 F Temp Source Oral Pulse Oximetry (%) 98 Oxygen Delivery Method Room Air Intake Visit Reasons: FMLA paerwork Intake Note: New patient visit. 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 Allergies peach [PEACH] Allergy (Intermediate, Verified 10/21/23 09:14) DIFFICULTY BREATHING Medication List - Last Reconciled 10/21/23 by Elizabeth Agudelo PA-C albuterol sulfate 90 mcg/actuation 2 puffs inhalation Q4-6H PRN aspirin (Adult Low Dose Aspirin) 81 mg PO DAILY 90 days atorvastatin 40 mg PO BEDTIME metoprolol tartrate 25 mg PO BID sodium bicarbonate 650 mg PO BID ticagrelor (Brilinta) 90 mg PO BID Tobacco use date assessed: 10/21/23 Fall risk assessment: No Falls in past year Last assessed Fall Risk: 10/21/23 Dental Screening Dental Screen Date: 04/21/23 HPI FMLA paerwork HPI Details Patient is a 68-year-old female who presents today for FMLA paperwork in for transfer of care. She has a significant past medical history of liver cirrhosis, type 2 diabetes, CAD, s/p cardiac catheterization, kidney stones, statin induced rhabdo. -patient states that she is frustrated t misael because she has brought in paperwork to be signed for FMLA and this has not been completed. She works at [employer] and recently had an MD and worsening chronic comorbidities. She states that she needs paperwork because she is going to cardiac rehab and is now following with specialists. She has to miss work a few times a week for this. -has not had labs since hospitalization. Overall is feeling significantly better and states that her energy is improved. -patient was recently hospitalized in [place] at [facility] when she presented with an NSTEMI but this was a complicated hospital course with a diagnosis of nephrolithiasis, UTI, hematuria, thrombocytopenia, low bicarb level, hypertension, dysphagia, diabetes, left shoulder pain, likely cirrhosis and splenomegaly. NSTEMI: -S/p PCI LAD with RIAN x2 -aspirin and Brilinta -continue metoprolol 25 mg b.i.d. -starting atorvastatin after discussion with Cardiology and GI to titrate atorvastatin up to 80 mg outpatient as LFTs normalize -cardiology recommended starting Imdur 3 0 mg daily if any recurrent chest pain Nephrolithiasis, UTI, hematuria: -reports intermittent hematuria since he r previous NSTEMI in 2020. She reports having a workup done with PCP but no concern -more significant hematuria noted with h er heparin drip therefore she had a CT abdomen and pelvis: CT abdomen and pelvis did show a left renal pelvis calculus. There was also a diffusely irregular soft tissue in the left renal pelvis and proximal left ureter. Much of this could be related to chronic inflammation, due to the extent in focality of the soft tissue, neoplasm can not be excluded. Uro consultation recommends consideration for ureteroscopy and/or tissue sampling. Urine cytology negative for high-grade urothelial carcinoma. -urology recommended outpatient follow u p with [facility] or her own urologist Dr. Salcido. -she was treated with IV ceftriaxone for UTI. Thrombocytopenia: -superimposed: Platelet likely related t o liver cirrhosis with splenomegaly -gammopathy with elevated total protein, low albumin -thrombocytopenia felt close to baseline around 135 -DIC workup was negative -hematology recommendation was to follow up serum immunofixation, peripheral blood smear, serum protein electrophoresis. Okay for DAPT -no plans for bone marrow biopsy at this time, recommended Heme-Onc follow up outpatient Low bicarb level -bicarb tabs were started -continue monitoring electrolytes and re nal function Hypertension: -now started on metoprolol 25 mg b.i.d.. 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 She did have an abn ormal barium swallow in 2020 and the endoscopy was on hold until clearance but this did not get done. Diabetes: -last A1c was 6.8 in hospital. Has not been on any medication Chronic left shoulder pain: -patient was referred to physical therap y Mammo: UTD, completed 2 days ago, results not available [facility] Medical History (Updated 10/21/23 @ 12:28 by Elizabeth Agudelo PA-C) Dysphagia Dyslipidemia Hx of non-ST elevation myocardial infarction (NSTEMI) Diabetes CAD (coronary artery disease) Rhabdomyolysis Atherosclerotic cardiovascular disease Obesity Asthma Urgency incontinence Renal stones Surgical History Hx of lithotripsy S/P cardiac catheterization Hx laparoscopic cholecystectomy History of carpal tunnel release H/O colonoscopy Hx of cataract extraction Hx of cystoscopy Family History Father No problems noted. Mother No problems noted. Social History Household Members: None Housing: Apartment Do you presently have visiting nurse or other home services: No Alcohol intake: current Alcohol intake frequency: holidays/special occasions only Patient Tobacco Use Status: Never used Tobacco e-Cigarette/Vaping Use: Never Used Second Hand Smoke Exposure: No service: No Current occupational status: employed Current occupation: [employer] Current occupational exposures/hazards: No Cognitive needs: No Hearing needs: No Vision needs: No Questionnaire Thrive Questionnaire Date Thrive assessed: 04/21/23 RICKY-7 AMB Questionnaire RICKY-7 Date RICKY - 7 assessed: 04/21/23 Source: Developed by Drs. Javier Marcos, Danielle Kimble, Dawson Oates and colleagues, with an educational wilbur from [employer]. Physical exam (Primary Care) Vital Signs: Last Vital Signs Temp 97.6 F 10/21/23 09:12 Pulse 105 H 10/21/23 09:12 BP 128/84 10/21/23 10:03 Pulse Ox 98 10/21/23 09:12 Oxygen Delivery Method Room Air 10/21/23 09:12 BMI result Body Mass Index 33.5 Tobacco/Smoking Status: Tobacco use Status Tobacco use date assessed 10/21/23 10/21/23 09:15 Patient Tobacco Use Status Never used Tobacco 10/21/23 09:15 e-Cigarette/Vaping Use Never Used 10/21/23 09:15 Thrive Assessment: Date of Thrive Assessment Date Thrive assessed 04/21/23 10/21/23 09:15 Const Orientation/consciousness: patient oriented x3 HENMT Ears: hearing grossly normal bilaterally Neck Thyroid: Thyroid normal Lymphatic: no lymphadenopathy noted Resp Auscultation: clear to auscultation bilaterally Cardio Rate: regular rate Rhythm: regular rhythm Heart sounds: S1 normal heart sound present and S2 normal heart sound present GI Inspection: Yes normal to inspection Palpation (GI): Soft to palpation and Other GI palpation findings present (nontender, no cva tenderness) Auscultation: normoactive bowel sounds Rectal Exam - Female: deferred Skin General skin exam: no rashes or lesions noted Neuro General: patient oriented x3, gait normal and no focal motor deficits Assessment and Plan Assessment & Plan (1) Hx of non-ST elevation myocardial infarction (NSTEMI): Code(s): I25.2 - Old myocardial infarction (2) Hypertension: Code(s): I10 - Essential (primary) hypertension Qualifiers: Hypertension type: primary hypertension Qualified Code(s): I10 - Essential (primary) hypertension Plan: Bp elevated today . Reports that at cardiac rehab blood pressures have been normal. I did check this multiple times today in the office. She will return in 1 week to be reassessed. (3) Type 2 diabetes mellitus with unspecified complications: Code(s): E11.8 - Type 2 diabetes mellitus with unspecified complications Plan: diet controlled. does not want take medications due to difficulty swallowing. we discussed ozempic. (4) Cirrhosis of liver: Code(s): K74.60 - Unspecified cirrhosis of liver Qualifiers: Ascites presence: without ascites Hepatic cirrhosis type: unspecified hepatic cirrhosis Qualified Code(s): K74.60 - Unspecified cirrhosis of liver Plan: following with GI and has a appointment booked on (5) Thrombocytopenia: Code(s): D69.6 - Thrombocytopenia, unspecified Plan: referral to hematology, will check cbc today -gammopathy with elevated total protein, low albumin -thrombocytopenia felt close to baseline around 135 -DIC workup was negative -hematology recommendation was to follow up serum immunofixation, peripheral blood smear, serum protein electrophoresis. Okay for DAPT -no plans for bone marrow biopsy at this time, recommended Heme-Onc follow up outpatient (6) Left renal mass: Code(s): N28.89 - Other specified disorders of kidney and ureter Plan: Has appointment with Dr. Cuellar 11/17. (7) Dyslipidemia: Code(s): E78.5 - Hyperlipidemia, unspecified Plan: We will check lipids and LFTs today. On atorvastatin. Has a history of statin induced rhabdo. We did discuss warning signs of this again today. The goal is to increase atorvastatin to 80 mg. (8) Statin-induced rhabdomyolysis: Code(s): M62.82 - Rhabdomyolysis; T46.6X5A - Adverse effect of antihyperlipidemic and antiarteriosclerotic drugs, initial encounter Plan: As above. (9) Dysphagia: Code(s): R13.10 - Dysphagia, unspecified Plan: following with GI, unchanged (10) Low bicarbonate: Code(s): E87.8 - Other disorders of electrolyte and fluid balance, not elsewhere classified Plan: Referral to nephrology placed. Plan Labs ordered today including CBC, CMP, TSH, lipid, microalbumin f/u 1 week or sooner prn FMLA paperwork signed. More than 1 hr was spent in [id number] time today discussing her hospitalization and ongoing medical problems. Orders: Orders TSH reflex Free T4 Today D69.6 - Thrombocytopenia, unspecified, E11.8 - Type 2 diabetes mellitus with unspecified complications, E78.5 - Hyperlipidemia, unspecified, I10 - Essential (primary) hypertension, I25.2 - Old myocardial infarction, K74.60 - Unspecified cirrhosis of liver, M62.82 - Rhabdomyolysis, N28.89 - Other specified disorders of kidney and ureter, R13.10 - Dysphagia, unspecified, T46.6X5A - Adverse effect of antihyperlipidemic and antiarteriosclerotic drugs, initial encounter Lipid Panel Today D69.6 - Thrombocytopenia, unspecified, E11.8 - Type 2 diabetes mellitus with unspecified complications, E78.5 - Hyperlipidemia, unspecified, I10 - Essential (primary) hypertension, I25.2 - Old myocardial infarction, K74.60 - Unspecified cirrhosis of liver, M62.82 - Rhabdomyolysis, N28.89 - Other specified disorders of kidney and ureter, R13.10 - Dysphagia, unspecified, T46.6X5A - Adverse effect of antihyperlipidemic and antiarteriosclerotic drugs, initial encounter Microalbumin, Random (w Creat) Today D69.6 - Thrombocytopenia, unspecified, E11.8 - Type 2 diabetes mellitus with unspecified complications, E78.5 - Hyperlipidemia, unspecified, I10 - Essential (primary) hypertension, I25.2 - Old myocardial infarction, K74.60 - Unspecified cirrhosis of liver, M62.82 - Rhabdomyolysis, N28.89 - Other specified disorders of kidney and ureter, R13.10 - Dysphagia, unspecified, T46.6X5A - Adverse effect of antihyperlipidemic and antiarteriosclerotic drugs, initial encounter Comprehensive [place]. Panel Fast Today D69.6 - Thrombocytopenia, unspecified, E11.8 - Type 2 diabetes mellitus with unspecified complications, E78.5 - Hyperlipidemia, unspecified, I10 - Essential (primary) hypertension, I25.2 - Old myocardial infarction, K74.60 - Unspecified cirrhosis of liver, M62.82 - Rhabdomyolysis, N28.89 - Other specified disorders of kidney and ureter, R13.10 - Dysphagia, unspecified, T46.6X5A - Adverse effect of antihyperlipidemic and antiarteriosclerotic drugs, initial encounter Complete Blood Count Auto Diff Today D69.6 - Thrombocytopenia, unspecified, E11.8 - Type 2 diabetes mellitus with unspecified complications, E78.5 - Hyperlipidemia, unspecified, I10 - Essential (primary) hypertension, I25.2 - Old myocardial infarction, K74.60 - Unspecified cirrhosis of liver, M62.82 - Rhabdomyolysis, N28.89 - Other specified disorders of kidney and ureter, R13.10 - Dysphagia, unspecified, T46.6X5A - Adverse effect of antihyperlipidemic and antiarteriosclerotic drugs, initial encounter Coding Level of Care Code Est Pt Level 5 (13986) Complex EM visit Add On G2211 Diagnoses Hx of non-ST elevation myocardial infarction (NSTEMI) I25.2 Primary hypertension I10 Hypertension type: primary hypertension Type 2 diabetes mellitus with unspecified complications E11.8 Cirrhosis of liver without ascites, unspecified hepatic cirrhosis type K74.60 Ascites presence: without ascites Hepatic cirrhosis type: unspecified hepatic cirrhosis Thrombocytopenia D69.6 Left renal mass N28.89 Dyslipidemia E78.5 Statin-induced rhabdomyolysis M62.82; T46.6X5A Dysphagia R13.10 Low bicarbonate E87.8
[2023-10-21 10:03] VITALS: BP 128/84
== END 2023-10-21 10:28 | disposition home or self-care (01) ==
PROVIDERS: PCP Nurse Practitioner Family; Visit Provider Physician Assistant
DX: E11.8 Type 2 diabetes mellitus with unspecified complications (principal); K74.60 Unspecified cirrhosis of liver; D69.6 Thrombocytopenia, unspecified; I25.2 Old myocardial infarction; I10 Essential (primary) hypertension; N28.89 Other specified disorders of kidney and ureter; E78.5 Hyperlipidemia, unspecified; M62.82 Rhabdomyolysis; T46.6X5A Adverse effect of antihyperlipidemic and antiarteriosclerotic drugs, initial encounter; R13.10 Dysphagia, unspecified; E87.8 Other disorders of electrolyte and fluid balance, not elsewhere classified
CPT/HCPCS: 99215; G2211

== ENCOUNTER 2023-10-21 10:43 | Outpatient (REF) | payer OTHER, SELFPAY ==
[2023-10-21 14:31] LABS: Appearance Urine Turbid; Color Urine Dark Yellow; Glucose Urine UA Negative (Negative); Leukocyte Esterase Urine Large (3+) (Negative); Nitrite Urine Negative (Negative); Specific Gravity - Urine 1.015 (1.005-1.025); UMIC TRIGGER UACC YES; Urine Blood Large (3+) (Negative); Urine Ketones Negative (Negative); Urine Protein 100 (2+) mg/dL (Neg-Trace)
[2023-10-21 14:46] LABS: Bacteria Urine 4+ (None Seen); RBC Urine >20 /HPF (0-2); UACC Culture Trigger YES; WBC Urine >50 /HPF (0-5)
[2023-10-21 15:00] LABS: Alanine Aminotransferase 21 U/L (0-31); Albumin Level 2.6 g/dL (3.5-5.0); Alkaline Phosphatase 89 U/L (39-117); Anion Gap 5 (12-20); Aspartate Amino Transferase 56 U/L (5-31); Bilirubin Total 0.7 mg/dL (0.0-1.0); Blood Urea Nitrogen 13 mg/dL (9-16); Calcium 8.3 mg/dL (8.4-10.2); Carbon Dioxide 25 mmol/L (22-29); Chloride 107 mmol/L (96-108); Cholesterol 107 mg/dL (<200); Estimated Glomerular Filt Rate 56; Glucose Fasting 117 mg/dL (60-99); HDL Cholesterol 29 mg/dL (>40); LDL Cholesterol Calculated 63 mg/dL (<100); Potassium 3.5 mmol/L (3.3-5.1); Sodium 133 mmol/L (135-145); Total Protein 9.5 g/dL (6.5-8.0); Triglycerides 78 mg/dL (<150)
[2023-10-21 15:03] LABS: Basophils Absolute Auto 0.1 X10*3/uL (0.0-0.2); Eosinophils Absolute Auto 0.4 X10*3/uL (0.0-0.4); Eosinophils Percent Auto 6.1 % (0-4); Hematocrit 32.3 % (37.0-47.0); Hemoglobin 10.3 g/dl (12.0-16.0); Imm Gran Abs Auto 0.05 X10*3/uL (0.00-0.03); Imm Gran Pct Auto 0.7 % (0.0-0.4); Lymphocytes Absolute Auto 1.5 X10*3/uL (1.2-4.9); Lymphocytes Percent Auto 21.6 % (20-40); MANUAL DIFF FLAG SCAN; Mean Corpuscular HGB Conc 31.9 g/dl (31.0-35.0); Mean Corpuscular Hemoglobin 29.9 pg (27.0-33.0); Mean Corpuscular Volume 93.9 fL (80.0-98.0); Monocytes Absolute Auto 0.6 X10*3/uL (0.1-1.2); Monocytes Percent Auto 9.5 % (2-11); Neutrophils Absolute Auto 4.1 x10*3/uL (2.0-8.3); Neutrophils Percent Auto 61.1 % (45-73); PLT CLUMP 1; Red Blood Count 3.44 X10*6/uL (4.20-5.50); Red Cell Distribution Width 15.4 % (11.0-16.0); SCAN SMEAR FLAG 1
[2023-10-21 15:05] LABS: White Blood Count 6.8 X10*3/uL (4.8-10.8)
[2023-10-21 15:18] LABS: TSH reflex Free T4 1.14 uIU/mL (0.32-4.0)
[2023-10-21 15:20] LABS: SLIDE REVIEW VERIFIED
[2023-10-21 15:24] LABS: Creatinine Urine 164.26 mg/dL; Microalbum/Creatinine Ratio Ur 101.6 ug/mg cr (<30)
== END 2023-10-21 10:44 | disposition home or self-care (01) ==
LOC: HO.WFDLDS 10:43
PROVIDERS: Nurse Practitioner Family; Visit Provider Physician Assistant
DX: Z00.00 Encounter for general adult medical examination without abnormal findings (principal); R74.01 Elevation of levels of liver transaminase levels; D69.6 Thrombocytopenia, unspecified; E11.8 Type 2 diabetes mellitus with unspecified complications; R82.90 Unspecified abnormal findings in urine
CPT/HCPCS: 36415; 80053; 80061; 81001; 82043; 82570; 84443; 85025; 87086

== ENCOUNTER 2023-10-28 10:27 | Outpatient (AMB) | payer OTHER, SELFPAY ==
--- NOTE | 2023-10-28 10:45 | A.OFFPC_ITS ---
Vital Signs 10/28/23 10:48 Height 4 ft 11 in Weight 171 lb 6 oz BMI 34.6 BP 138/86 Blood Pressure Location Rt brachial Position Sitting Respiration 14 Pulse 77 Pulse Source Pulse Oximeter Pulse Oximetry (%) 98 Oxygen Delivery Method Room Air Intake Visit Reasons: bp and lab. WILL NEED 30 MIN Intake Note: Extended follow up, lab results. Allergies peach [PEACH] Allergy (Intermediate, Verified 10/28/23 10:49) DIFFICULTY BREATHING Tobacco use date assessed: 10/21/23 Dental Screening Dental Screen Date: 04/21/23 HPI bp and lab. WILL NEED 30 MIN HPI Details Patient is a 68-year-old female who presents today for a follow up. She has a significant past medical history of liver cirrhosis, type 2 diabetes, CAD, s/p cardiac catheterization, kidney stones, statin induced rhabdo. At our last visit I did her FMLA paperwork. She was referred to nephrology and hematology and hasn't heard. -last cbc showed clumped plateletes (rach ble to calculate). --gammopathy with elevated total protein , low albumin -thrombocytopenia felt close to baseline around 135 -DIC workup was negative -hematology recommendation was to follow up serum immunofixation, peripheral blood smear, serum protein electrophoresis. Okay for DAPT -no plans for bone marrow biopsy at this time, recommended Heme-Onc follow up outpatient GI: Seeing GI 12/09 for the cirrhosis and dysphagia. URO: She has a follow up arranged 11/17 with urology for her renal mass. CV: bp today is wnl. she states that it is checked at cardiac rehab and they have been normal. Energy is improved. The last time she was here a week ago it was elevated. -S/p PCI LAD with RIAN x2 -aspirin and Brilinta -continue metoprolol 25 mg b.i.d. -starting atorvastatin after discussion with Cardiology and GI to titrate atorvastatin up to 80 mg outpatient as LFTs normalize She has appointments with cardiac rehab and Dr. Carter 12/08. Endo: DM is diet controlled. Mammo: UTD, completed 2 days ago, results not available [facility], [facility] Medical History (Updated 10/21/23 @ 12:28 by Elizabeth Agudelo PA-C) Dysphagia Dyslipidemia Hx of non-ST elevation myocardial infarction (NSTEMI) Diabetes CAD (coronary artery disease) Rhabdomyolysis Atherosclerotic cardiovascular disease Obesity Asthma Urgency incontinence Renal stones Surgical History Hx of lithotripsy S/P cardiac catheterization Hx laparoscopic cholecystectomy History of carpal tunnel release H/O colonoscopy Hx of cataract extraction Hx of cystoscopy Family History Father No problems noted. Mother No problems noted. Social History Household Members: None Housing: Apartment Do you presently have visiting nurse or other home services: No Alcohol intake: current Alcohol intake frequency: holidays/special occasions only Patient Tobacco Use Status: Never used Tobacco e-Cigarette/Vaping Use: Never Used Second Hand Smoke Exposure: No service: No Current occupational status: employed Current occupation: [employer] Current occupational exposures/hazards: No Cognitive needs: No Hearing needs: No Vision needs: No Questionnaire Thrive Questionnaire Date Thrive assessed: 04/21/23 RICKY-7 AMB Questionnaire RICKY-7 Date RICKY - 7 assessed: 04/21/23 Source: Developed by Drs. Javier Marcos, Danielle Kimble, Dawson Oates and colleagues, with an educational wilbur from [employer]. Physical exam (Primary Care) Vital Signs: Last Vital Signs Pulse 77 10/28/23 10:48 Resp 14 10/28/23 10:48 BP 138/86 10/28/23 10:48 Pulse Ox 98 10/28/23 10:48 Oxygen Delivery Method Room Air 10/28/23 10:48 BMI result Body Mass Index 34.6 Tobacco/Smoking Status: Tobacco use Status Tobacco use date assessed 10/21/23 10/28/23 10:47 Patient Tobacco Use Status Never used Tobacco 10/28/23 10:47 e-Cigarette/Vaping Use Never Used 10/28/23 10:47 Thrive Assessment: Date of Thrive Assessment Date Thrive assessed 04/21/23 10/28/23 10:47 Const Orientation/consciousness: patient oriented x3 HENMT Ears: hearing grossly normal bilaterally Neck Thyroid: Thyroid normal Lymphatic: no lymphadenopathy noted Resp Auscultation: clear to auscultation bilaterally Cardio Rate: regular rate Rhythm: regular rhythm Heart sounds: S1 normal heart sound present and S2 normal heart sound present GI Inspection: Yes normal to inspection Palpation (GI): Soft to palpation and Other GI palpation findings present (nontender, no cva tenderness) Auscultation: normoactive bowel sounds Rectal Exam - Female: deferred Skin General skin exam: no rashes or lesions noted Neuro General: patient oriented x3, gait normal and no focal motor deficits Results Reviewed Results Reviewed: Laboratory Tests 09/02/22 09/03/22 09/05/22 16:15 05:49 05:50 WBC 5.3 RBC 4.16 L Hgb 12.4 Hct 38.7 Plt Count 128 L Sodium 135 Potassium 3.6 Chloride 108 Carbon Dioxide 22 Anion Gap BUN Creatinine Estimated GFR Random Glucose 156 H Fasting Glucose Hgb A1c (Clinic) AST 87 H ALT 69 H Alkaline Phosphatase 94 Total Protein Albumin Triglycerides Cholesterol LDL Cholesterol, Calc HDL Cholesterol TSH 04/21/23 10/21/23 15:45 10:47 WBC 6.8 RBC 3.44 L Hgb 10.3 L Hct 32.3 L Plt Count Sodium 133 L Potassium 3.5 Chloride 107 Carbon Dioxide 25 Anion Gap 5 L BUN 13 Creatinine 0.99 Estimated GFR 56 Random Glucose Fasting Glucose 117 H Hgb A1c (Clinic) 6.6 H AST 56 H ALT 21 Alkaline Phosphatase 89 Total Protein 9.5 H Albumin 2.6 L Triglycerides 78 Cholesterol 107 LDL Cholesterol, Calc 63 HDL Cholesterol 29 L TSH 1.14 Assessment and Plan Assessment & Plan (1) Left renal mass: Code(s): N28.89 - Other specified disorders of kidney and ureter Plan: Seeing urology (2) Cirrhosis of liver: Code(s): K74.60 - Unspecified cirrhosis of liver Qualifiers: Hepatic cirrhosis type: unspecified hepatic cirrhosis Ascites presence: without ascites Qualified Code(s): K74.60 - Unspecified cirrhosis of liver Plan: labs trending down. has follow up with GI (3) Thrombocytopenia: Code(s): D69.6 - Thrombocytopenia, unspecified Plan: last cbc showed clumped platelets. repeat today. has referral to hematology (4) Hypertension: Code(s): I10 - Essential (primary) hypertension Qualifiers: Hypertension type: primary hypertension Qualified Code(s): I10 - Essential (primary) hypertension Plan: bp wnl. continue metoprolol (5) Type 2 diabetes mellitus with unspecified complications: Code(s): E11.8 - Type 2 diabetes mellitus with unspecified complications Plan: diet controlled. Coding Level of Care Code Est Pt Level 4 (48607) Complex EM visit Add On G2211 Diagnoses Left renal mass N28.89 Cirrhosis of liver without ascites, unspecified hepatic cirrhosis type K74.60 Hepatic cirrhosis type: unspecified hepatic cirrhosis Ascites presence: without ascites Thrombocytopenia D69.6 Primary hypertension I10 Hypertension type: primary hypertension Type 2 diabetes mellitus with unspecified complications E11.8
[2023-10-28 10:48] VITALS: BP 138/86; PULSE 77; RESP 14; O2SAT 98; BMI 34.6
== END 2023-10-28 11:24 | disposition home or self-care (01) ==
PROVIDERS: PCP Physician Assistant; Visit Provider Physician Assistant
DX: D69.6 Thrombocytopenia, unspecified (principal); K74.60 Unspecified cirrhosis of liver; E11.8 Type 2 diabetes mellitus with unspecified complications; N28.89 Other specified disorders of kidney and ureter; I10 Essential (primary) hypertension
CPT/HCPCS: 99214; G2211

== ENCOUNTER 2023-10-28 11:27 | Outpatient (REF) | payer OTHER, SELFPAY ==
[2023-10-28 15:12] LABS: Red Cell Distribution Width 15.2 % (11.0-16.0); SCAN SMEAR FLAG 1
[2023-10-28 15:13] LABS: Basophils Absolute Auto 0.1 X10*3/uL (0.0-0.2); Basophils Percent Auto 0.8 % (0-2); Eosinophils Absolute Auto 0.3 X10*3/uL (0.0-0.4); Eosinophils Percent Auto 5.1 % (0-4); Hematocrit 31.1 % (37.0-47.0); Imm Gran Abs Auto 0.04 X10*3/uL (0.00-0.03); Imm Gran Pct Auto 0.7 % (0.0-0.4); Lymphocytes Absolute Auto 1.1 X10*3/uL (1.2-4.9); Lymphocytes Percent Auto 18.1 % (20-40); MANUAL DIFF FLAG SCAN; Mean Corpuscular HGB Conc 32.2 g/dl (31.0-35.0); Mean Corpuscular Hemoglobin 30.5 pg (27.0-33.0); Mean Corpuscular Volume 94.8 fL (80.0-98.0); Monocytes Absolute Auto 0.5 X10*3/uL (0.1-1.2); Monocytes Percent Auto 7.4 % (2-11); Neutrophils Absolute Auto 4.1 x10*3/uL (2.0-8.3); Neutrophils Percent Auto 67.9 % (45-73); PLT CLUMP 1; Red Blood Count 3.28 X10*6/uL (4.20-5.50)
[2023-10-28 15:39] LABS: PLT ABN DIST 1; White Blood Count 6.1 X10*3/uL (4.8-10.8)
[2023-10-28 15:40] LABS: SLIDE REVIEW VERIFIED
[2023-10-28 15:46] LABS: Alanine Aminotransferase 16 U/L (0-31); Albumin Level 2.6 g/dL (3.5-5.0); Alkaline Phosphatase 77 U/L (39-117); Anion Gap 8 (12-20); Aspartate Amino Transferase 42 U/L (5-31); Bilirubin Total 0.5 mg/dL (0.0-1.0); Blood Urea Nitrogen 15 mg/dL (9-16); Calcium 8.3 mg/dL (8.4-10.2); Carbon Dioxide 24 mmol/L (22-29); Chloride 110 mmol/L (96-108); Cholesterol 108 mg/dL (<200); Estimated Glomerular Filt Rate > 60; Glucose Fasting 115 mg/dL (60-99); HDL Cholesterol 32 mg/dL (>40); LDL Cholesterol Calculated 62 mg/dL (<100); Potassium 3.9 mmol/L (3.3-5.1); Sodium 138 mmol/L (135-145); Total Protein 9.1 g/dL (6.5-8.0); Triglycerides 70 mg/dL (<150)
[2023-10-28 15:50] LABS: TSH reflex Free T4 1.45 uIU/mL (0.32-4.0)
== END 2023-10-28 11:28 | disposition home or self-care (01) ==
LOC: HO.WFDLDS 11:27
PROVIDERS: Visit Provider Physician Assistant
DX: R13.10 Dysphagia, unspecified (principal); E78.5 Hyperlipidemia, unspecified; N28.89 Other specified disorders of kidney and ureter; I25.2 Old myocardial infarction; K74.60 Unspecified cirrhosis of liver; D69.6 Thrombocytopenia, unspecified; I10 Essential (primary) hypertension; E11.8 Type 2 diabetes mellitus with unspecified complications; M62.82 Rhabdomyolysis; T46.6X5A Adverse effect of antihyperlipidemic and antiarteriosclerotic drugs, initial encounter
CPT/HCPCS: 36415; 80053; 80061; 84443; 85025

== ENCOUNTER 2023-11-13 07:09 | Outpatient (REF) | payer OTHER, SELFPAY ==
[2023-11-13 07:42] LABS: Basophils Absolute Auto 0.1 X10*3/uL (0.0-0.2); Red Cell Distribution Width 14.8 % (11.0-16.0); SCAN SMEAR FLAG 1
[2023-11-13 07:44] LABS: Eosinophils Absolute Auto 0.5 X10*3/uL (0.0-0.4); Eosinophils Percent Auto 5.8 % (0-4); Hematocrit 30.9 % (37.0-47.0); Imm Gran Abs Auto 0.04 X10*3/uL (0.00-0.03); Imm Gran Pct Auto 0.5 % (0.0-0.4); Lymphocytes Absolute Auto 1.8 X10*3/uL (1.2-4.9); Lymphocytes Percent Auto 23.5 % (20-40); MANUAL DIFF FLAG SCAN; Mean Corpuscular HGB Conc 32.4 g/dl (31.0-35.0); Mean Corpuscular Hemoglobin 29.4 pg (27.0-33.0); Mean Corpuscular Volume 90.9 fL (80.0-98.0); Monocytes Absolute Auto 0.9 X10*3/uL (0.1-1.2); Monocytes Percent Auto 11.3 % (2-11); Neutrophils Absolute Auto 4.5 x10*3/uL (2.0-8.3); Neutrophils Percent Auto 57.9 % (45-73); PLT CLUMP 1
[2023-11-13 07:53] LABS: Appearance Urine Cloudy; Color Urine Dark Yellow; PH 5.5 (5.0-9.0)
[2023-11-13 07:54] LABS: PLT ABN DIST 1; White Blood Count 7.7 X10*3/uL (4.8-10.8)
[2023-11-13 07:54] LABS: Bacteria Urine 1+ (None Seen); Glucose Urine UA Negative (Negative); Hyaline Casts Urine 0-2 /LPF (0-2); Leukocyte Esterase Urine Large (3+) (Negative); Nitrite Urine Negative (Negative); RBC Urine >20 /HPF (0-2); Specific Gravity - Urine 1.015 (1.005-1.025); Squamous Epithelial Cell Urine 0-2 /HPF (0-2); UACC Culture Trigger YES; UMIC TRIGGER UACC YES; Urine Blood Large (3+) (Negative); Urine Ketones Negative (Negative); Urine Protein 30 (1+) mg/dL (Neg-Trace); WBC Urine >50 /HPF (0-5)
[2023-11-13 08:05] LABS: Creatinine Urine 67.32 mg/dL; Microalbum/Creatinine Ratio Ur 184.1 ug/mg cr (<30)
[2023-11-13 08:12] LABS: Iron 63 mcg/dL (30-160); Percent Iron Saturation 22 % (15-50); Total Iron Binding Capacity 288 mcg/dL (228-428); Unsaturated Iron Binding 225 ug/dL
[2023-11-13 08:13] LABS: SLIDE REVIEW VERIFIED
[2023-11-13 08:28] LABS: Ferritin 22 ng/mL (10-250)
[2023-11-13 08:38] LABS: Folate 4.4 ng/mL (> or = 4.0); Vitamin B12 1161 pg/mL (200-900)
== END 2023-11-13 07:10 | disposition home or self-care (01) ==
LOC: HO.LAB 07:09
PROVIDERS: Nurse Practitioner Family; PCP Physician Assistant; Visit Provider Physician Assistant
DX: Z00.00 Encounter for general adult medical examination without abnormal findings (principal); R13.10 Dysphagia, unspecified; E78.5 Hyperlipidemia, unspecified; N28.89 Other specified disorders of kidney and ureter; I25.2 Old myocardial infarction; K74.60 Unspecified cirrhosis of liver; D69.6 Thrombocytopenia, unspecified; I10 Essential (primary) hypertension; E11.8 Type 2 diabetes mellitus with unspecified complications; M62.82 Rhabdomyolysis; T46.6X5A Adverse effect of antihyperlipidemic and antiarteriosclerotic drugs, initial encounter; D64.9 Anemia, unspecified
CPT/HCPCS: 36415; 81001; 82043; 82570; 82607; 82728; 82746; 83540; 85025; 87086

== ENCOUNTER 2023-11-18 08:33 | Outpatient (REF) | payer OTHER, SELFPAY ==
[2023-11-18 16:50] LABS: Urine Cytology See Pathology rpt
== END 2023-11-18 08:34 | disposition home or self-care (01) ==
LOC: HO.LNP 08:33
PROVIDERS: Visit Provider Urology
DX: N39.0 Urinary tract infection, site not specified (principal)
CPT/HCPCS: 81003; 88112

== ENCOUNTER 2023-11-18 08:33 | Outpatient (AMB) | payer OTHER, SELFPAY ==
--- NOTE | 2023-11-18 08:48 | A.OFFVIS_ITS ---
Intake Visit Reasons: 1.7cm irregular linear left renal pelvis calculus Intake Note: Patient is present for 7cm irregular linear left renal pelvis calculus Urology Medication:none Antibiotic Allergy:none Blood Thinner:aspirin Stage Director Required: No Allergies peach [PEACH] Allergy (Intermediate, Verified 01/06/24 09:37) DIFFICULTY BREATHING HPI Comments Details: Claudia is a 68-year-old female who was admitted to [facility] in August for an PA. She states that 2 cardiac stents were placed. She states she had one cardiac stent placed in 2020. She was restarted on Brilinta. She states that she also has low platelets and is scheduled to see Hematology. During hospitalizaion, for kidney I just for the imaging she is got multiple 3 mm stones in 1 kidney 3 mm ureter she is currently in our emergency do a whole lot but she is texting 0 clinic they did give pain or anything well I mean to I mean which time she had CT imaging that noted a 1.7 linear calcification of the left renal pelvis and soft tissue changes which may be inflammatory versus neoplastic changes. The patient has had a history of kidney stones and has seen Dr. Salcido in the past. Plan --repeat with follow-up CT imaging, Microscopic hematuria-office cystoscopy [facility] Medical History (Updated 11/18/23 @ 09:29 by Chuyita Ratliff MD) Dysphagia Dyslipidemia Hx of non-ST elevation myocardial infarction (NSTEMI) Diabetes CAD (coronary artery disease) Rhabdomyolysis Atherosclerotic cardiovascular disease Obesity Asthma Urgency incontinence Renal stones Surgical History Hx of lithotripsy S/P cardiac catheterization Hx laparoscopic cholecystectomy History of carpal tunnel release H/O colonoscopy Hx of cataract extraction Hx of cystoscopy Family History Father No problems noted. Mother No problems noted. Social History Household Members: None Housing: Apartment Do you presently have visiting nurse or other home services: No Alcohol intake: current Alcohol intake frequency: holidays/special occasions only Patient Tobacco Use Status: Never used Tobacco e-Cigarette/Vaping Use: Never Used Second Hand Smoke Exposure: No service: No Current occupational status: employed Current occupation: [employer] Current occupational exposures/hazards: No Cognitive needs: No Hearing needs: No Vision needs: No Review of Systems Const All systems reviewed & are unremarkable except as noted in HPI and below Reports no additional complaints Eyes Reports no additional complaints ENT Reports no additional complaints Card Reports no additional complaints Resp Reports no additional complaints GI Reports no additional complaints Reports as per HPI Musc Reports no additional complaints Skin/Breast Reports system reviewed and no additional complaints, except as documented Neuro Reports no additional complaints Psych Reports no additional complaints Endo Reports no additional complaints Kobi/Lymph Reports no additional complaints Aller/Immun Reports no additional complaints Physical Exam Const General: cooperative, healthy appearing and no acute distress Orientation/consciousness: patient oriented x3 HEENT Head: Yes normal to inspection, Yes normocephalic and Yes atraumatic Eyes Conjunctivae: conjunctivae normal Neck Neck: Yes normal visual inspection and Yes trachea midline Chest Chest palpation & inspection: normal inspection of the chest Resp Effort & Inspection: normal respiratory effort Cardio Jugular venous distension: no JVD GI Inspection: Yes normal to inspection Skin General skin exam: no rashes or lesions noted Neuro General: patient oriented x3 Psych Appearance: grossly normal Results AMB Urinalysis, Automated UA Leukoctes 500 Juju/uL Last Edit by DARINEL Marie on 11/18/23 08:55 UA Nitrite Negative Last Edit by DARINEL Marie on 11/18/23 08:55 UA Urobilinogen 0.2 mg/dL Last Edit by DARINEL Marie on 11/18/23 08:5 5 UA Protein 100 mg/dL Last Edit by DARINEL Marie on 11/18/23 08:55 UA pH 5.5 Last Edit by DARINEL Marie on 11/18/23 08:55 UA Blood 200 Will/uL Last Edit by DARINEL Marie on 11/18/23 08:55 UA Specific [place] 1.025 Last Edit by DARINEL Marie on 11/18/23 08: 55 UA Ketone Negative Last Edit by DARINEL Marie on 11/18/23 08:55 UA Bilirubin 0 mg/dL Last Edit by DARINEL Marie on 11/18/23 08:55 UA Glucose 0 mg/dL Last Edit by DARINEL Marie on 11/18/23 08:55 Results Reviewed Results Reviewed: Laboratory Last Values Urine pH (Auto) 5.5 11/18/23 08:52 Specific [place] (Auto) 1.025 11/18/23 08:52 Urine Protein (Auto) 100 mg/dL 11/18/23 08:52 Glucose (UA)(Auto) 0 mg/dL 11/18/23 08:52 Urine Ketones (Auto) Negative 11/18/23 08:52 Urine Blood (Auto) 200 Will/uL 11/18/23 08:52 Urine Nitrite (Auto) Negative 11/18/23 08:52 Urine Bilirubin (Auto) 0 mg/dL 11/18/23 08:52 Urine Urobilinogen (Auto) 0.2 mg/dL 11/18/23 08:52 Leukocyte Esterase (Auto) 500 Juju/uL 11/18/23 08:52 Assessment & Plan Assessment & Plan (1) Gross hematuria: Code(s): R31.0 - Gross hematuria Category: Medical (2) Abnormal CT scan, kidney: Code(s): R93.429 - Abnormal radiologic findings on diagnostic imaging of unspecified kidney Category: Medical (3) Calcium nephrolithiasis: Code(s): N20.0 - Calculus of kidney Category: Medical Plan Plan --repeat with follow-up CT imaging, Microscopic hematuria-office cystoscopy Orders: Orders CT urogram 11/18/23 R31.0 - Gross hematuria, R93.429 - Abnormal radiologic findings on diagnostic imaging of unspecified kidney, N20.0 - Calculus of kidney Urine Cytology 11/18/23 N39.0 - Urinary tract infection, site not specified AMB Urinalysis Automated 11/18/23 Z13.9 - Encounter for screening, unspecified Patient Instructions: The patient had an opportunity to ask questions regarding treatment plan. The patient expressed understanding and agreement with the above treatment plan. The patient is aware they should contact our office by phone for worsening of their current condition or the appearance of new symptoms. Compliance is encouraged with any medications and followup testing that is ordered. It is a privilege to be allowed the opportunity to participate in the urologic care of your patient. If you have any questions or concerns regarding treatment for the above conditions please do not hesitate to contact me. The office telephone contact is [phone]. This note is constructed in part using voice recognition software. While every effort has been made to ensure accuracy gem expert errors may have been included. Yours sincerely, Chuyita Ratliff MD Coding Level of Care Code New Pt Level 4 (01243) Diagnoses Gross hematuria R31.[address] scan, kidney R93.429 Calcium nephrolithiasis N20.0
== END 2023-11-18 09:51 | disposition home or self-care (01) ==
PROVIDERS: Visit Provider Urology
DX: R31.0 Gross hematuria (principal); R93.429 Abnormal radiologic findings on diagnostic imaging of unspecified kidney; N20.0 Calculus of kidney
CPT/HCPCS: 99204

== ENCOUNTER 2023-12-09 10:11 | Outpatient (AMB) | payer OTHER, SELFPAY ==
--- NOTE | 2023-12-09 10:27 | MHC.OFFVIS ---
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 To recall, in September 2020, she had NSTEMI and underwent circumflex stenting. In 08/2023, had another hospitalization to [facility] for NSTEMI. It seems that she underwent cardiac catheterization and LAD stenting. She is overall feeling well. Some shortness of breath but suspect it is mostly deconditioning. In the past, she also had an admission for rhabdomyolysis. Question of statin related but she went back on statins after that anyway. Currently, she is listed to be on statins after the NSTEMI. [facility] Medical History (Updated 11/18/23 @ 09:29 by Chuyita Ratliff MD) Dysphagia Dyslipidemia Hx of non-ST elevation myocardial infarction (NSTEMI) Diabetes CAD (coronary artery disease) Rhabdomyolysis Atherosclerotic cardiovascular disease Obesity Asthma Urgency incontinence Renal stones Surgical History Hx of lithotripsy S/P cardiac catheterization Hx laparoscopic cholecystectomy History of carpal tunnel release H/O colonoscopy Hx of cataract extraction Hx of cystoscopy Family History Father No problems noted. Mother No problems noted. Social History Household Members: None Housing: Apartment Do you presently have visiting nurse or other home services: No Alcohol intake: current Alcohol intake frequency: holidays/special occasions only Patient Tobacco Use Status: Never used Tobacco e-Cigarette/Vaping Use: Never Used Second Hand Smoke Exposure: No service: No Current occupational status: employed Current occupation: [employer] Current occupational exposures/hazards: No Cognitive needs: No Hearing needs: No Vision needs: No Review of Systems Const Denies chills, Denies fatigue, Denies fever(s), Denies weight gain and Denies weight loss ENT Denies dizziness Card Denies chest pain, Denies leg edema, Denies lightheadedness, Denies palpitations, Reports dyspnea on exertion, Denies orthopnea and Denies other Resp Denies cough and Reports dyspnea on exertion GI Denies hematochezia and Denies change in stool character Musc Denies abnormal gait, Denies muscle weakness, Denies numbness, Denies radiating pain into limb and Denies tingling Neuro Denies abnormal gait, Denies dizziness, Denies numbness and Denies tingling Endo Denies fatigue and Denies palpitations Physical Exam Vital Signs: Last Vital Signs Pulse 84 12/09/23 10:28 BP 136/64 12/09/23 10:28 BMI result Body Mass Index 34.8 Const General: comfortable and no acute distress Orientation/consciousness: patient oriented x3 HEENT Other: Unremarkable Head: Yes normal to inspection Neck Neck: Yes normal visual inspection Chest Chest palpation & inspection: normal inspection of the chest Resp Auscultation: clear to auscultation bilaterally Cardio Palpation: normal PMI Heart sounds: S1 normal heart sound present, S2 normal heart sound present, no gallops, no murmurs and no rubs GI Palpation (GI): Soft to palpation Back/Spine/Pelvis Other: unremarkable Skin General skin exam: no rashes or lesions noted Neuro General: patient oriented x3 Extrem General: Yes normal to inspection Psych Mental Status: mental status grossly normal Assessment & Plan Assessment & Plan (1) Atherosclerotic cardiovascular disease: Code(s): I25.10 - Atherosclerotic heart disease of [place] coronary artery without angina pectoris Category: Medical (2) Non-ST elevation ID (NSTEMI): Code(s): I21.4 - Non-ST elevation (NSTEMI) myocardial infarction Category: Medical (3) Cirrhosis of liver: Code(s): K74.60 - Unspecified cirrhosis of liver Category: Medical Qualifiers: Ascites presence: without ascites Hepatic cirrhosis type: unspecified hepatic cirrhosis Qualified Code(s): K74.60 - Unspecified cirrhosis of liver Plan Most recent cardiac catheterization data reviewed from 08/2023. Proximal LAD with 95% stenosis status post drug-eluting stent. Patent stent in the circumflex. Mid RCA with 60% stenosis. Continue long-term aspirin. For Brilinta, continue for 1 year total. Continue beta-blockers. She is on statins but there is a question of statin induced rhabdomyolysis in the past. We can continue to monitor. Check CK levels. There is indeed CK from [facility] which does not seem too high. Otherwise, PCSK9 inhibitors but in the past, she refused them. LDL cholesterol 56 mg/dL and triglycerides 54 mg/dL per [facility] labs. With regard to the question of cirrhosis, [facility] notes state that CT scan had shown cirrhosis with splenomegaly. Hepatitis panel was apparently negative. LFTs were elevated. Question of nonalcoholic fatty liver disease. She is awaiting GI appointment tomorrow. There is a concern for thrombocytopenia but multiple lab checks show platelet clumping. We will reorder this. Continue cardiac rehabilitation. Orders: Orders Comprehensive Met. Panel Today K74.60 - Unspecified cirrhosis of liver Platelet Count Today D69.6 - Thrombocytopenia, unspecified Creatine Kinase Total Today M62.82 - Rhabdomyolysis, T46.6X5A - Adverse effect of antihyperlipidemic and antiarteriosclerotic drugs, initial encounter Coding Level of Care Code Est Pt Level 4 (52747) Diagnoses Atherosclerotic cardiovascular disease I25.10 Non-ST elevation ID (NSTEMI) I21.4 Cirrhosis of liver without ascites, unspecified hepatic cirrhosis type K74.60 Ascites presence: without ascites Hepatic cirrhosis type: unspecified hepatic cirrhosis
[2023-12-09 10:28] VITALS: BP 136/64; PULSE 84; BMI 34.8
== END 2023-12-09 10:50 | disposition home or self-care (01) ==
PROVIDERS: PCP Nurse Practitioner Family; Visit Provider Internal Medicine
DX: I25.10 Atherosclerotic heart disease of native coronary artery without angina pectoris (principal); I21.4 Non-ST elevation (NSTEMI) myocardial infarction; K74.60 Unspecified cirrhosis of liver
CPT/HCPCS: 99214

== ENCOUNTER 2023-12-09 10:11 | Outpatient (REF) | payer OTHER, SELFPAY ==
[2023-12-09 12:15] LABS: Basophils Absolute Auto 0.1 X10*3/uL (0.0-0.2); Basophils Percent Auto 1.1 % (0-2); Eosinophils Absolute Auto 0.3 X10*3/uL (0.0-0.4); Eosinophils Percent Auto 4.5 % (0-4); Hematocrit 30.1 % (37.0-47.0); Hemoglobin 9.3 g/dl (12.0-16.0); Imm Gran Abs Auto 0.04 X10*3/uL (0.00-0.03); Imm Gran Pct Auto 0.7 % (0.0-0.4); Lymphocytes Absolute Auto 1.3 X10*3/uL (1.2-4.9); Lymphocytes Percent Auto 22.5 % (20-40); MANUAL DIFF FLAG SCAN; Mean Corpuscular HGB Conc 30.9 g/dl (31.0-35.0); Mean Corpuscular Hemoglobin 28.7 pg (27.0-33.0); Mean Corpuscular Volume 92.9 fL (80.0-98.0); Monocytes Absolute Auto 0.5 X10*3/uL (0.1-1.2); Monocytes Percent Auto 9.4 % (2-11); Neutrophils Absolute Auto 3.4 x10*3/uL (2.0-8.3); Neutrophils Percent Auto 61.8 % (45-73); PLT CLUMP 1; Red Blood Count 3.24 X10*6/uL (4.20-5.50); Red Cell Distribution Width 14.7 % (11.0-16.0); SCAN SMEAR FLAG 1
[2023-12-09 12:19] LABS: White Blood Count 5.6 X10*3/uL (4.8-10.8)
[2023-12-09 12:31] LABS: Platelet Count (Citrate) 138 X10*3/uL (150-310)
[2023-12-09 12:32] LABS: SLIDE REVIEW VERIFIED
[2023-12-09 12:36] LABS: Alanine Aminotransferase 28 U/L (0-31); Albumin Level 2.9 g/dL (3.5-5.0); Alkaline Phosphatase 77 U/L (39-117); Anion Gap 6 (12-20); Aspartate Amino Transferase 66 U/L (5-31); Bilirubin Total 0.5 mg/dL (0.0-1.0); Blood Urea Nitrogen 16 mg/dL (9-16); Calcium 8.6 mg/dL (8.4-10.2); Carbon Dioxide 24 mmol/L (22-29); Chloride 112 mmol/L (96-108); Estimated Glomerular Filt Rate 59; Glucose Random 99 mg/dL (60-115); Sodium 137 mmol/L (135-145); Total Protein 9.2 g/dL (6.5-8.0)
== END 2023-12-09 10:12 | disposition home or self-care (01) ==
LOC: HO.LAB 10:11
PROVIDERS: PCP Physician Assistant; Visit Provider Internal Medicine
DX: M62.82 Rhabdomyolysis (principal); T46.6X5A Adverse effect of antihyperlipidemic and antiarteriosclerotic drugs, initial encounter; K74.60 Unspecified cirrhosis of liver; D69.6 Thrombocytopenia, unspecified; D64.9 Anemia, unspecified; I25.10 Atherosclerotic heart disease of native coronary artery without angina pectoris; I21.4 Non-ST elevation (NSTEMI) myocardial infarction
CPT/HCPCS: 36415; 80053; 82550; 85025

== ENCOUNTER 2023-12-10 09:51 | Outpatient (AMB) | payer OTHER, SELFPAY ==
--- NOTE | 2023-12-10 10:05 | MHC.OFFVIS ---
Vital Signs 12/10/23 10:16 Height 4 ft 11 in Weight 172 lb BMI 34.7 BP 146/68 H Blood Pressure Location Lt brachial Position Sitting Pulse 78 Intake Visit Reasons: Cirrhosis of liver Intake Note: Patient new consult for Cirrhosis of liver Patient cardiology send her for lab yesterday, tiredness, difficulty swallowing with some food, denies any other GI issues. 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 Accompanied by: Self / Same As Patient Allergies peach [PEACH] Allergy (Intermediate, Verified 12/10/23 10:05) DIFFICULTY BREATHING HPI HPI Cirrhosis of liver: Details: HPI 68 yr old f here for assessment for cirrhosis She was told at [facility] she had cirrhosis, she was there for nstemi and had stents 08/2023 she has fatigue she has been told she has inflammed kidney from stone and following with DR Davison she has trouble swallowing, losing weight since heart attack but steady now--likes junk food no diarrhea, no constipation no rectal bleeding no melena neg cologuard 07/03 colonoscopy aged 51 and was nml labs: UA with large blood, ROS: Constitutional : + Weight loss, No Fever, No Chills ENT/Mouth : No sore throat, No Rhinorrhea Eyes: No Swelling, No Redness Cardiovascular : No Chest Pain, No SOB, No Edema Respiratory : No Cough, No Sputum, No Wheezing Gastrointestinal : see HPI Genitourinary : NO Dysuria, No Urinary Frequency, No Hematuria, No Urgency Musculoskeletal : No joint pain, No Myalgias, No Joint Swelling Skin : No Skin Lesions, No rash Neuro : No Weakness, No Numbness, No Dizziness, No Headache Psych : No Anxiety/Panic, No Depression Heme/Lymph: No Bruising, No Lymphadenopathy Endocrine : No Polyuria, No Polydipsia All other systems reviewed and are negative. Medical History Dysphagia Dyslipidemia Hx of non-ST elevation myocardial infarction (NSTEMI) Diabetes CAD (coronary artery disease) Rhabdomyolysis Atherosclerotic cardiovascular disease Obesity Asthma Urgency incontinence Renal stones Surgical History Hx of lithotripsy S/P cardiac catheterization Hx laparoscopic cholecystectomy History of carpal tunnel release H/O colonoscopy Hx of cataract extraction Hx of cystoscopy Family History No FH of liver disease Social History Alcohol intake: current Alcohol intake frequency: holidays/special occasions only Patient Tobacco Use Status: Never used Tobacco e-Cigarette/Vaping Use: Never Used EXAM: GENERAL: The patient is well developed and nontoxic. VITAL SIGNS:see workflow HEENT: Nonicteric sclerae, PERRLA, EOMI. Oropharynx clear. Moist mucous membranes. Conjunctivae appear well perfused. No thyroid mass. CHEST: Chest wall is nontender. HEART: Regular rate and rhythm without murmurs. LUNGS: Clear to auscultation bilaterally. ABDOMEN: Soft, positive bowel sounds, nontender, no organomegaly.no flank tenderness SKIN: No rash, no excessive bruising, petechiae, or purpura. NEUROLOGIC: Cranial nerves II-XII intact without motor/sensory deficit. Psych: normal affect A/P: 1/ Cirrhosis diagnosis at [facility], INR nml, mild anemia, mild LFT abn --may have early compensated cirrhosis prob ESQUIVEL related 2/ dysphagia, uncertain etiology at this time PLAN: 1/ Labs incl autoimmune testing, protein and urine EP, hep C 2/ US liver 3/ ba swallow with pill 4/ might need EGD for assessment [facility] Medical History (Updated 11/18/23 @ 09:29 by Chuyita Ratliff MD) Dysphagia Dyslipidemia Hx of non-ST elevation myocardial infarction (NSTEMI) Diabetes CAD (coronary artery disease) Rhabdomyolysis Atherosclerotic cardiovascular disease Obesity Asthma Urgency incontinence Renal stones Surgical History Hx of lithotripsy S/P cardiac catheterization Hx laparoscopic cholecystectomy History of carpal tunnel release H/O colonoscopy Hx of cataract extraction Hx of cystoscopy Family History Father No problems noted. Mother No problems noted. Social History Household Members: None Housing: Apartment Do you presently have visiting nurse or other home services: No Alcohol intake: current Alcohol intake frequency: holidays/special occasions only Patient Tobacco Use Status: Never used Tobacco e-Cigarette/Vaping Use: Never Used Second Hand Smoke Exposure: No service: No Current occupational status: employed Current occupation: [employer] Current occupational exposures/hazards: No Cognitive needs: No Hearing needs: No Vision needs: No Physical Exam Vital Signs: Last Vital Signs Pulse 78 12/10/23 10:16 BP 146/68 H 12/10/23 10:16 BMI result Body Mass Index 34.7 Assessment & Plan Assessment & Plan (1) Cirrhosis of liver: Code(s): K74.60 - Unspecified cirrhosis of liver Category: Medical Qualifiers: Hepatic cirrhosis type: unspecified hepatic cirrhosis Ascites presence: without ascites Qualified Code(s): K74.60 - Unspecified cirrhosis of liver Plan: see above (2) Hypocalcemia: Code(s): E83.51 - Hypocalcemia Category: Medical Plan: see above (3) Anemia: Code(s): D64.9 - Anemia, unspecified Category: Medical Plan: see above Orders: Orders Hepatitis A,B,C Profile Today D64.9 - Anemia, unspecified, E83.51 - Hypocalcemia, K74.60 - Unspecified cirrhosis of liver Aldolase Today D64.9 - Anemia, unspecified, E83.51 - Hypocalcemia, K74.60 - Unspecified cirrhosis of liver Alpha 1 Anti-trypsin Today D64.9 - Anemia, unspecified, E83.51 - Hypocalcemia, K74.60 - Unspecified cirrhosis of liver Vitamin B1 Today D64.9 - Anemia, unspecified, E83.51 - Hypocalcemia, K74.60 - Unspecified cirrhosis of liver Vitamin A Today D64.9 - Anemia, unspecified, E83.51 - Hypocalcemia, K74.60 - Unspecified cirrhosis of liver Vitamin B5 (Pantothenic Acid) Today D64.9 - Anemia, unspecified, E83.51 - Hypocalcemia, K74.60 - Unspecified cirrhosis of liver Vitamin B6 Today D64.9 - Anemia, unspecified, E83.51 - Hypocalcemia, K74.60 - Unspecified cirrhosis of liver Vitamin D 25-OH Total Today D64.9 - Anemia, unspecified, E83.51 - Hypocalcemia, K74.60 - Unspecified cirrhosis of liver Vitamin K1 Today D64.9 - Anemia, unspecified, E83.51 - Hypocalcemia, K74.60 - Unspecified cirrhosis of liver FL barium swallow Today R13.10 - Dysphagia, unspecified Complete Blood Count Auto Diff Today D64.9 - Anemia, unspecified, E83.51 - Hypocalcemia, K74.60 - Unspecified cirrhosis of liver CASA Reflex Titer and Pattern Today D64.9 - Anemia, unspecified, E83.51 - Hypocalcemia, K74.60 - Unspecified cirrhosis of liver, R79.82 - Elevated C-reactive protein (CRP) Vitamin B12 and Folate Today D64.9 - Anemia, unspecified, E83.51 - Hypocalcemia, K74.60 - Unspecified cirrhosis of liver Vitamin B3 (Niacin) Today D64.9 - Anemia, unspecified, E83.51 - Hypocalcemia, K74.60 - Unspecified cirrhosis of liver Vitamin C Today D64.9 - Anemia, unspecified, E83.51 - Hypocalcemia, K74.60 - Unspecified cirrhosis of liver Vitamin E Today D64.9 - Anemia, unspecified, E83.51 - Hypocalcemia, K74.60 - Unspecified cirrhosis of liver Zinc Today D64.9 - Anemia, unspecified, E83.51 - Hypocalcemia, K74.60 - Unspecified cirrhosis of liver Mitochondrial Antibody Today D64.9 - Anemia, unspecified, E83.51 - Hypocalcemia, K74.60 - Unspecified cirrhosis of liver, R79.89 - Other specified abnormal findings of blood chemistry Ferritin Today D64.9 - Anemia, unspecified, E83.51 - Hypocalcemia, K74.60 - Unspecified cirrhosis of liver Transglutaminase Ab IgG Today D64.9 - Anemia, unspecified, E83.51 - Hypocalcemia, G89.29 - Other chronic pain, K74.60 - Unspecified cirrhosis of liver, R10.33 - Periumbilical pain US abdomen comp w elastography Today D64.9 - Anemia, unspecified, E83.51 - Hypocalcemia, K74.60 - Unspecified cirrhosis of liver Protein Electrophoresis, Serum Today D64.9 - Anemia, unspecified Protein Electrophoresis,Ran Ur Today D64.9 - Anemia, unspecified Smooth Muscle Antibody Today D64.9 - Anemia, unspecified, K74.60 - Unspecified cirrhosis of liver Coding Level of Care Code New Pt Level 4 (97978) Diagnoses Cirrhosis of liver without ascites, unspecified hepatic cirrhosis type K74.60 Hepatic cirrhosis type: unspecified hepatic cirrhosis Ascites presence: without ascites Hypocalcemia E83.51 Anemia D64.9
[2023-12-10 10:16] VITALS: BP 146/68; PULSE 78; BMI 34.7
== END 2023-12-10 10:56 | disposition home or self-care (01) ==
PROVIDERS: Visit Provider Internal Medicine Gastroenterology
DX: K74.60 Unspecified cirrhosis of liver (principal); E83.51 Hypocalcemia; D64.9 Anemia, unspecified
CPT/HCPCS: 99204

== ENCOUNTER 2023-12-10 09:51 | Outpatient (REF) | payer OTHER, SELFPAY ==
[2023-12-10 11:47] LABS: Basophils Absolute Auto 0.1 X10*3/uL (0.0-0.2); Basophils Percent Auto 0.9 % (0-2); Eosinophils Absolute Auto 0.3 X10*3/uL (0.0-0.4); Eosinophils Percent Auto 4.8 % (0-4); Hematocrit 30.5 % (37.0-47.0); Hemoglobin 9.5 g/dl (12.0-16.0); Imm Gran Abs Auto 0.03 X10*3/uL (0.00-0.03); Imm Gran Pct Auto 0.5 % (0.0-0.4); Lymphocytes Absolute Auto 1.4 X10*3/uL (1.2-4.9); Lymphocytes Percent Auto 24.3 % (20-40); MANUAL DIFF FLAG SCAN; Mean Corpuscular HGB Conc 31.1 g/dl (31.0-35.0); Monocytes Absolute Auto 0.4 X10*3/uL (0.1-1.2); Monocytes Percent Auto 7.5 % (2-11); Neutrophils Absolute Auto 3.6 x10*3/uL (2.0-8.3); PLT CLUMP 1; Red Blood Count 3.28 X10*6/uL (4.20-5.50); Red Cell Distribution Width 14.9 % (11.0-16.0); SCAN SMEAR FLAG 1
[2023-12-10 12:24] LABS: White Blood Count 5.8 X10*3/uL (4.8-10.8)
[2023-12-10 12:25] LABS: SLIDE REVIEW VERIFIED
[2023-12-10 12:38] LABS: Ferritin 19 ng/mL (10-250); HBc Num1 0.13 S/CO (0.00-0.79); HBsAGNum1 0.26 S/CO (0.00-0.99); Hepatitis A Antibody IgM 0.26 Index (0-0.79); Hepatitis B Core Antibody Nonreactive (Nonreactive); Hepatitis B Surface Antigen Negative (Negative); Vitamin D 25-OH Total 7.1 ng/mL (>30); ~HepC Num1 0.32 S/CO (0.00-0.79); ~Hepatitis A Antibody IgM Nonreactive (Nonreactive); ~Hepatitis B Surface Antibody NONREACTIVE (Nonreactive); ~Hepatitis C Antibody Nonreactive (Nonreactive)
[2023-12-10 13:21] LABS: Folate 4.3 ng/mL (> or = 4.0); Vitamin B12 1130 pg/mL (200-900)
[2023-12-13 13:38] LABS: Alpha 1 Anti-trypsin 165 mg/dL (83-199)
[2023-12-13 17:33] LABS: Transglutaminase Ab IgG 2.2 U/mL
[2023-12-13 22:03] LABS: Prot Elec - Alpha1 0.3 g/dL (0.2-0.3); Prot Elec - Alpha2 0.6 g/dL (0.5-0.9); Prot Elec - Beta 1 0.5 g/dL (0.4-0.6); Prot Elec - Beta 2 0.4 g/dL (0.2-0.5); Prot Elec - Gamma 4.2 g/dL (0.8-1.7)
[2023-12-14 03:28] LABS: Zinc 36 mcg/dL (60-130)
[2023-12-14 08:08] LABS: PEU-Rand. Prot/Creat Ratio 970 mg/g creat (24-184); PEU-Random Ur. Gamma Globulin 38 %; PEU-Random Urine A1 Globulin 3 %; PEU-Random Urine A2 Globulin 9 %; PEU-Random Urine Albumin 27 %; PEU-Random Urine Beta Globulin 24 %; PEU-Random Urine Creatinine 67 mg/dL (20-275); PEU-Random Urine Protein 65 mg/dL (5-24)
[2023-12-14 11:27] LABS: Mitochondrial Antibodies NEGATIVE (NEGATIVE)
[2023-12-14 15:29] LABS: ANA Pattern 2 Nuclear, Homogeneous; ANA Titer 2 1:40 titer; Anti Nuclear Antibody Screen POSITIVE (NEGATIVE)
[2023-12-14 22:13] LABS: Aldolase 2.8 U/L (<=8.1)
[2023-12-14 22:48] LABS: Vitamin K1 351 pg/mL (130-1500)
[2023-12-16 06:19] LABS: Vitamin B6 4.7 ng/mL (2.1-21.7)
[2023-12-16 12:33] LABS: Smooth Muscle Antibody 63 U (<20)
[2023-12-16 15:38] LABS: Nicotinamide 20 ng/mL (see note); Vit B3 - Nicotinic Acid <20 ng/mL (see note); Vitamin B5 (Pantothenic Acid) 48 ng/mL (<275)
[2023-12-16 17:03] LABS: Vitamin A 13 mcg/dL (38-98)
[2023-12-16 18:37] LABS: Alpha-Tocopherol 11.7 mg/L (5.7-19.9); Beta-Gamma Tocopherol 1.2 mg/L (<=4.3)
[2023-12-17 13:03] LABS: Vitamin C 0.1 mg/dL (0.3-2.7)
[2023-12-17 13:28] LABS: Vitamin B1 8 nmol/L (8-30)
== END 2023-12-10 09:52 | disposition home or self-care (01) ==
LOC: HO.LAB 09:51
PROVIDERS: Visit Provider Internal Medicine Gastroenterology
DX: K74.60 Unspecified cirrhosis of liver (principal); E83.51 Hypocalcemia; D64.9 Anemia, unspecified; R79.82 Elevated C-reactive protein (CRP); R10.33 Periumbilical pain; G89.29 Other chronic pain; R79.89 Other specified abnormal findings of blood chemistry
CPT/HCPCS: 82085; 82103; 82180; 82306; 82570; 82607; 82728; 82746; 84156; 84165; 84166; 84207; 84425; 84446; 84590; 84591; 84597; 84630; 85025; 86015; 86038; 86039; 86364; 86381; 86704; 86706; 86709; 86803; 87340

== ENCOUNTER 2023-12-22 08:31 | Outpatient (REF) | payer OTHER, SELFPAY ==
--- NOTE | ~2023-12-22 | US_ITS ---
EXAMINATION: US COMPLETE ABDOMEN WITH LIVER ELASTOGRAPHY CLINICAL INFORMATION: Hepatic cirrhosis. COMPARISON: None available. TECHNIQUE: Real-time imaging of the abdominal viscera. Noninvasive ultrasound liver fibrosis assessment is performed using Enrique ElastPQ point quantification shear wave elastography (pSWE) with a C5-2 MHz transducer. Multiple elastography samples are obtained. FINDINGS: PANCREAS: Normal. The visualized pancreatic head and body are normal in appearance. The remainder of the pancreas is obscured from visualization by the overlying bowel gas. ABDOMINAL AORTA: The proximal, middle, and distal aortic segments are normal in caliber. INFERIOR VENA CAVA: Visualized portions are normal. LIVER: The liver demonstrates normal size, a nodular contour and coarse echogenicity. No focal lesion or intrahepatic biliary duct dilatation. The right lobe measures 13.7 cm in length. The left lobe measures 11.6 cm in length. Portal flow is towards the liver (hepatopetal). Shear wave liver elastography median stiffness is 1.69 m/s (reference: normal median stiffness is 1.3 m/s or less). IQR/median stiffness to assess sampling precision is 0.14 (reference: good quality data set is IQR/median stiffness of 0.15 or less). GALLBLADDER: Surgically absent. COMMON BILE DUCT: Normal in caliber measuring 0.6 cm in diameter. RIGHT KIDNEY: There is increased renal cortical echotexture. No hydronephrosis. No renal calculi or focal parenchymal lesions. The kidney measures 8.9 cm in maximum dimension. LEFT KIDNEY: At the lower pole, a 1.0 cm nonobstructing calculus is seen. There is mild focal upper pole caliectasis, without toni hydronephrosis. No focal parenchymal lesions. The kidney measures 12.5 cm in maximum dimension. SPLEEN: No focal finding. The spleen measures 13.1 cm in maximum dimension. FREE FLUID: None. US/US abdomen comp w elastography IMPRESSION: 1. Consistent with the provided history of cirrhosis, there is coarse hepatic echotexture and a nodular hepatic contour. No focal hepatic mass or intrahepatic biliary ductal dilatation is seen. 2. Liver elastography: In the absence of other known clinical signs, measurements rule out compensated advanced chronic liver disease. If there are known clinical signs, further testing may be needed for confirmation. 3. There is mild splenomegaly. 4. There is increased right renal cortical echotexture, which can be associated with medical renal disease. 5. A 1.0 cm left renal lower pole calculus is seen. There is focal left renal upper pole caliectasis, without toni hydronephrosis. 6. The gallbladder is surgically absent. REFERENCE: Society of Radiologists in Ultrasound Liver Stiffness Thresholds (2020): LIVER STIFFNESS THRESHOLDS: *Liver Stiffness equal or less than 1.3 m/s: High probability of being normal. *Liver Stiffness less than 1.7 m/s: In the absence of other known clinical signs, rules out compensated advanced chronic liver disease. *Liver Stiffness 1.7-2.1 m/s: Suggestive of compensated advanced chronic liver disease but need further test for confirmation. *Liver Stiffness over 2.1 m/s: Rules in compensated advanced chronic liver disease. *Liver Stiffness over 2.4 m/s: Suggestive of clinically significant portal hypertension. QUALITY OF DATA SET: *IQR/Median value equal or less than 0.15 implies a quality data set. *IQR/Median value over 0.15 implies a poor quality data set. SIGNIFICANT CHANGE FROM PRIOR EXAM: Significant change if liver stiffness measurement is 10% or greater from prior exam. OTHER CONSIDERATIONS: The stage of liver fibrosis may be overestimated in the setting of acute hepatitis, liver inflammation, elevated liver function tests, hepatic vascular congestion, obstructive cholestasis, non-fasting state, and infiltrative diseases such as amyloidosis and lymphoma. In some patients with NAFLD, the liver stiffness thresholds for compensated advanced chronic liver disease may be lower. In causes other than viral hepatitis and NAFLD, liver stiffness thresholds are not well established. Electronically signed by: Christiano Jarquin MD 01/12/2024 04:53 PM EDT
== END 2023-12-22 08:32 | disposition home or self-care (01) ==
LOC: HO.US 08:31
PROVIDERS: PCP Nurse Practitioner Family; Visit Provider Internal Medicine Gastroenterology
DX: K74.60 Unspecified cirrhosis of liver (principal); E83.51 Hypocalcemia; D64.9 Anemia, unspecified
CPT/HCPCS: 76700; 76981

== ENCOUNTER 2024-01-04 08:09 | Outpatient (REF) | payer OTHER, SELFPAY ==
--- NOTE | ~2024-01-04 | CT_ITS ---
EXAMINATION: CT ABDOMEN AND PELVIS WITHOUT AND WITH CONTRAST CLINICAL INFORMATION: Gross hematuria. COMPARISON: None available. TECHNIQUE: Noncontrast CT of the abdomen and pelvis is performed followed by split bolus contrast-enhanced images using 85 mL Omnipaque 350 contrast. Postcontrast imaging is performed during the combined nephrogram and excretion phase. Sagittal and coronal reformatted images were obtained on the technologist's workstation for both the precontrast and postcontrast phases. This CT examination was performed using dose optimization techniques as appropriate, variously including the following: *Automated exposure control. *Adjustment of mA and/or kV according to patient size (this includes techniques or standardized protocols for targeted exams where dose is matched to indication/reason for exam; i.e. extremities or head). *Use of iterative reconstruction technique. DLP: 1005 mGy-cm FINDINGS: LUNG BASES: There is a very small left pleural effusion. The lung bases are clear. There are coronary artery atherosclerotic calcifications. LIVER, GALLBLADDER, AND BILIARY TREE: The liver is normal in attenuation. There is a lobulated hepatic contour, and there is a prominent caudate lobe, features which may be seen in association with cirrhosis. No focal hepatic lesion or biliary ductal dilatation is present. The gallbladder is surgically absent. PANCREAS: Unremarkable. SPLEEN: There is splenomegaly, with a longitudinal span of 13.5 cm. ADRENAL GLANDS: Unremarkable. KIDNEYS AND URETERS: There is right renal cortical thinning. The left kidney is normal in size, shape, and attenuation. No hydronephrosis, hydroureter, or calculi seen. There is ill-defined circumferential soft tissue opacity adjacent to the left renal pelvis and the proximal left ureter (10:49-57 and 8:36-47). The left ureteropelvic junction appears narrowed (10:49). BLADDER: Unremarkable. GASTROINTESTINAL TRACT: There is mild diverticulosis, without acute diverticulitis. There is no focal bowel wall thickening. No obstruction, free intraperitoneal air or abscess is seen. The vermiform appendix appears normal. ABDOMINAL WALL: No significant hernia is appreciated. LYMPH NODES: There are shotty, nonpathologically enlarged para-aortic and mesenteric lymph nodes. One of the largest of these is located anterior to the upper abdominal aorta (18:36), measuring 1.0 x 0.8 cm. No sizable abdominopelvic lymphadenopathy is seen. VASCULAR: There is moderate aortoiliac atherosclerotic calcification. No abdominal aortic aneurysm or dissection is seen. The left ovarian vein is very prominent (i.e. 10:46-50), with distention and collateral formation. PELVIC VISCERA: The uterus and adnexa are unremarkable. OSSEUS STRUCTURES: There is a moderate lumbar levoscoliosis. There is multi-level thoracolumbar endplate arthropathy. A moderate Schmorl's node seen of the L4 lower endplate. No acute or aggressive osseous finding is noted. CT/CT urogram IMPRESSION: 1. There is narrowing of the left ureteropelvic junction, and there is ill-defined soft tissue density adjacent to the left renal pelvis and the proximal left ureter. This may be infectious or inflammatory in etiology, and the possibility of a neoplasm such as a transitional cell carcinoma is not excluded. Urology evaluation and management is recommended, with consideration for ureteroscopy. 2. The right kidney shows cortical thinning. 3. No urinary calculus or obstruction is seen. 4. There is prominence of the left ovarian vein, suggesting insufficiency. 5. There is mild diverticulosis, without diverticulitis. 6. There are shotty, nonpathologically enlarged periaortic and mesenteric lymph nodes, as detailed. Recommend management clinical basis. No pathologically enlarged abdominopelvic lymph nodes are seen. 7. There is mild splenomegaly. 8. No aggressive osseous lesion is seen. Electronically signed by: Christiano Jarquin MD 01/27/2024 11:40 AM EDT
[2024-01-04] MEDS: iohexoL 350 MG/ML 100 ML INFUS..BTL 85 ML IV (08:55)
== END 2024-01-04 08:10 | disposition home or self-care (01) ==
LOC: HO.CT 08:09
PROVIDERS: PCP Nurse Practitioner Family; Visit Provider Urology
DX: N20.0 Calculus of kidney (principal); R31.0 Gross hematuria; R93.429 Abnormal radiologic findings on diagnostic imaging of unspecified kidney
CPT/HCPCS: 74178; Q9967

== ENCOUNTER 2024-01-06 09:23 | Outpatient (AMB) | payer OTHER, SELFPAY ==
--- NOTE | 2024-01-06 09:36 | MHC.OFFVIS ---
Intake Visit Reasons: cysto/CT(CT?) Intake Note: Patient is present for Cystoscopy/CT Urology Medication:NONE Antibiotic Allergy:NONE Blood Thinner:ASPIRIN Lot:[id number] Exp:06/24/2026 [employer] Required: No Allergies peach [PEACH] Allergy (Intermediate, Verified 02/25/24 11:42) DIFFICULTY BREATHING HPI Comments Details: 01/05/24--Claudia is a 68-year-old female who was initially evaluated as a New patient on 11/18/23. Here for office cystoscopy. The pt was admitted to [facility] in August for an TX. She states that 2 cardiac stents were placed. She states she had one cardiac stent placed in 2020. She was restarted on Brilinta. She states that she also has low platelets and is scheduled to see Hematology. During hospitalizaion, for kidney I just for the imaging she is got multiple 3 mm stones in 1 kidney 3 mm ureter she is currently in our emergency do a whole lot but she is texting 0 clinic they did give pain or anything well I mean to I mean which time she had CT imaging that noted a 1.7 linear calcification of the left renal pelvis and soft tissue changes which may be inflammatory versus neoplastic changes. The patient has had a history of kidney stones and has seen Dr. Salcido in the past. Discussed CTAP- 01/04/24--no urinary stones. Office cystoscopy- mild erythematous changes. Plan will reevaluate in 3 months. PFSH Medical History Dysphagia Dyslipidemia Hx of non-ST elevation myocardial infarction (NSTEMI) Diabetes CAD (coronary artery disease) Rhabdomyolysis Atherosclerotic cardiovascular disease Obesity Asthma Urgency incontinence Renal stones Surgical History Hx of lithotripsy S/P cardiac catheterization Hx laparoscopic cholecystectomy History of carpal tunnel release H/O colonoscopy Hx of cataract extraction Hx of cystoscopy Family History Father No problems noted. Mother No problems noted. Social History Household Members: None Housing: Apartment Do you presently have visiting nurse or other home services: No Alcohol intake: current Alcohol intake frequency: holidays/special occasions only Patient Tobacco Use Status: Never used Tobacco e-Cigarette/Vaping Use: Never Used Second Hand Smoke Exposure: No Use of substances other than those prescribed or required for medical reasons: No Have you been hit, kicked, punched, or otherwise hurt by someone within the past year? If so, by whom?: No Do you feel safe in your current relationship?: Yes Do you have thoughts of harming others: None Do you have a plan to hurt others: No Plan Patient : No service: No Current occupational status: employed Current occupation: [employer] Current occupational exposures/hazards: No Cognitive needs: No Hearing needs: No Vision needs: No Office Procedures Cystoscopy Consent Discussed risk and benefit or proposed procedure with the patient. Information consent for procedure given to the patient. Discussed technical aspects, risks, benefits and alternatives in full. Addressed all of the patient's questions and concerns regarding the procedure. The patient demonstrated knowledge and understanding. They wish to proceed with this procedure. Preparation The patient was prepped in the usual manner. A client service and consulting manager was present and in the room. Genitalia was prepped with betadine solution in a sterile manner. Lidocaine Jelly 2% was placed into the urethra and 16Fr flexible Olympus cystoscope was inserted into the meatus after adequate lubrication. Procedure Time out per protocol performed. Bladder Inspection Bladder Inspection: The bladder was inspected in its entirety with utilization retroflexion displaying: Tumor(s): no suspicious bladder lesions visualized Trabeculation: Mild Mucosal Erthema: Mild Orifices: normal shape and position Urethra: normal Cystoscopy findings: mild erythematous changes. [id number] DISPOSABLE SCOPE URO-G FLEXIBLE SCOPE Procedure code (CPT) selection complete Office Meds lidocaine HCl 2 % mucosal jelly in applicator Performing Provider: Chuyita Ratliff MD Performing Location[place] [facility] [place] [facility] Administered by: Norberto Ortiz LPN on 01/06/24 10:15 Dose Route Admin Location Dispensed Lot Number Expiration Date [facility] Forming Machine Upkeep Mechanic 10 mL intra-urethral 10 mL naproxen 500 mg tablet Performing Provider: Chuyita Ratliff MD Performing Location: [facility] [place] [facility] Documented (not given) by: Norberto Ortiz LPN on 01/06/24 10:15 Reason Not Given: Patient Refused ciprofloxacin HCl 500 mg tablet Performing Provider: Chuyita Ratliff MD Performing Location: [facility] [place] [facility] Documented (not given) by: Norberto Ortiz LPN on 01/06/24 10:15 Reason Not Given: Patient Refused Results AMB Urinalysis, Automated UA Leukoctes 500 Juju/uL Last Edit by DARINEL Marie on 01/06/24 10:00 UA Nitrite Negative Last Edit by DARINEL Marie on 01/06/24 10:00 UA Urobilinogen 0.2 mg/dL Last Edit by DARINEL Marie on 01/06/24 10:00 UA Protein 30 mg/dL Last Edit by DARINEL Marie on 01/06/24 10:00 UA pH 5.5 Last Edit by DARINEL Marie on 01/06/24 10:00 UA Blood 200 Will/uL Last Edit by DARINEL Marie on 01/06/24 10:00 UA Specific Sheridan 1.020 Last Edit by DARINEL Marie on 01/06/24 10:00 UA Ketone Negative Last Edit by DARINEL Marie on 01/06/24 10:00 UA Bilirubin 0 mg/dL Last Edit by DARINEL Marie on 01/06/24 10:00 UA Glucose 0 mg/dL Last Edit by DARINEL Marie on 01/06/24 10:00 Results Reviewed Results Reviewed: Laboratory Last Values Urine pH (Auto) 5.5 01/06/24 09:59 Specific Sheridan (Auto) 1.020 01/06/24 09:59 Urine Protein (Auto) 30 mg/dL 01/06/24 09:59 Glucose (UA)(Auto) 0 mg/dL 01/06/24 09:59 Urine Ketones (Auto) Negative 01/06/24 09:59 Urine Blood (Auto) 200 Will/uL 01/06/24 09:59 Urine Nitrite (Auto) Negative 01/06/24 09:59 Urine Bilirubin (Auto) 0 mg/dL 01/06/24 09:59 Urine Urobilinogen (Auto) 0.2 mg/dL 01/06/24 09:59 Leukocyte Esterase (Auto) 500 Juju/uL 01/06/24 09:59 Collected: 11/18/23 Location: [facility] Received: 11/19/23 Diagnosis Urine: Non-diangostic. COMMENT: Examination of a monolayer preparation slide shows a hypocellular specimen with red blood cells and occasional inflammatory cells. Clinical History Urinary tract infection Material Received Urine Gross Description Received is 5 cc of cloudy reddish fluid from which a ThinPrep slide is prepared. Date of Service: 01/04/24 CT ABDOMEN AND PELVIS WITHOUT AND WITH CONTRAST CLINICAL INFORMATION: Gross hematuria. COMPARISON: None available. TECHNIQUE: Noncontrast CT of the abdomen and pelvis is performed followed by split bolus contrast-enhanced images using 85 mL Omnipaque 350 contrast. Postcontrast imaging is performed during the combined nephrogram and excretion phase. Sagittal and coronal reformatted images were obtained on the technologist's workstation for both the precontrast and postcontrast phases. This CT examination was performed using dose optimization techniques as appropriate, variously including the following: *Automated exposure control. *Adjustment of mA and/or kV according to patient size (this includes techniques or standardized protocols for targeted exams where dose is matched to indication/reason for exam; i.e. extremities or head). *Use of iterative reconstruction technique. DLP: 1005 mGy-cm FINDINGS: LUNG BASES: There is a very small left pleural effusion. The lung bases are clear. There are coronary artery atherosclerotic calcifications. LIVER, GALLBLADDER, AND BILIARY TREE: The liver is normal in attenuation. There is a lobulated hepatic contour, and there is a prominent caudate lobe, features which may be seen in association with cirrhosis. No focal hepatic lesion or biliary ductal dilatation is present. The gallbladder is surgically absent. PANCREAS: Unremarkable. SPLEEN: There is splenomegaly, with a longitudinal span of 13.5 cm. ADRENAL GLANDS: Unremarkable. KIDNEYS AND URETERS: There is right renal cortical thinning. The left kidney is normal in size, shape, and attenuation. No hydronephrosis, hydroureter, or calculi seen. There is ill-defined circumferential soft tissue opacity adjacent to the left renal pelvis and the proximal left ureter (10:49-57 and 8:36-47). The left ureteropelvic junction appears narrowed (10:49). BLADDER: Unremarkable. GASTROINTESTINAL TRACT: There is mild diverticulosis, without acute diverticulitis. There is no focal bowel wall thickening. No obstruction, free intraperitoneal air or abscess is seen. The vermiform appendix appears normal. ABDOMINAL WALL: No significant hernia is appreciated. LYMPH NODES: There are shotty, nonpathologically enlarged para-aortic and mesenteric lymph nodes. One of the largest of these is located anterior to the upper abdominal aorta (18:36), measuring 1.0 x 0.8 cm. No sizable abdominopelvic lymphadenopathy is seen. VASCULAR: There is moderate aortoiliac atherosclerotic calcification. No abdominal aortic aneurysm or dissection is seen. The left ovarian vein is very prominent (i.e. 10:46-50), with distention and collateral formation. PELVIC VISCERA: The uterus and adnexa are unremarkable. OSSEUS STRUCTURES: There is a moderate lumbar levoscoliosis. There is multi-level thoracolumbar endplate arthropathy. A moderate Schmorl's node seen of the L4 lower endplate. No acute or aggressive osseous finding is noted. IMPRESSION: 1. There is narrowing of the left ureteropelvic junction, and there is ill-defined soft tissue density adjacent to the left renal pelvis and the proximal left ureter. This may be infectious or inflammatory in etiology, and the possibility of a neoplasm such as a transitional cell carcinoma is not excluded. Urology evaluation and management is recommended, with consideration for ureteroscopy. 2. The right kidney shows cortical thinning. 3. No urinary calculus or obstruction is seen. 4. There is prominence of the left ovarian vein, suggesting insufficiency. 5. There is mild diverticulosis, without diverticulitis. 6. There are shotty, nonpathologically enlarged periaortic and mesenteric lymph nodes, as detailed. Recommend management clinical basis. No pathologically enlarged abdominopelvic lymph nodes are seen. 7. There is mild splenomegaly. 8. No aggressive osseous lesion is seen. Assessment & Plan Assessment & Plan (1) Gross hematuria: Code(s): R31.0 - Gross hematuria Category: Medical (2) Abnormal CT scan, kidney: Code(s): R93.429 - Abnormal radiologic findings on diagnostic imaging of unspecified kidney Category: Medical (3) Calcium nephrolithiasis: Code(s): N20.0 - Calculus of kidney Category: Medical Plan Repeat office cystoscopy in 3 months Orders: Orders AMB Urinalysis Automated 01/06/24 Z13.9 - Encounter for screening, unspecified AMB Cystoscopy 01/06/24 N20.0 - Calculus of kidney, R93.429 - Abnormal radiologic findings on diagnostic imaging of unspecified kidney, R31.0 - Gross hematuria, N39.41 - Urge incontinence Urine Culture 01/06/24 N39.0 - Urinary tract infection, site not specified Patient Instructions: The patient had an opportunity to ask questions regarding treatment plan. The patient expressed understanding and agreement with the above treatment plan. The patient is aware they should contact our office by phone for worsening of their current condition or the appearance of new symptoms. Compliance is encouraged with any medications and followup testing that is ordered. It is a privilege to be allowed the opportunity to participate in the urologic care of your patient. If you have any questions or concerns regarding treatment for the above conditions please do not hesitate to contact me. The office telephone contact is [phone]. This note is constructed in part using voice recognition software. While every effort has been made to ensure accuracy production superintendent hydro errors may have been included. Yours sincerely, Chuyita Ratliff MD Coding Level of Care Code Procedure Only Diagnoses Gross hematuria R31.[address] scan, kidney R93.429 Calcium nephrolithiasis N20.0 CPT Codes Cystoscopy - CPT: 59014-Hytiqmaecc ([id number])
== END 2024-01-06 10:46 | disposition home or self-care (01) ==
PROVIDERS: Visit Provider Urology
DX: N20.0 Calculus of kidney (principal); R93.429 Abnormal radiologic findings on diagnostic imaging of unspecified kidney; R31.0 Gross hematuria; N39.41 Urge incontinence
CPT/HCPCS: 52000

== ENCOUNTER → 2024-01-06 09:23 | Outpatient (BNVA) | payer OTHER, SELFPAY | PROVIDERS: Visit Provider Urology | DX: N20.0 Calculus of kidney (principal); N39.41 Urge incontinence; R31.0 Gross hematuria; R93.429 Abnormal radiologic findings on diagnostic imaging of unspecified kidney | CPT/HCPCS: 52000; 81003 ==

== ENCOUNTER → 2024-01-24 08:26 | Outpatient (BNV) | payer OTHER, SELFPAY | PROVIDERS: PCP Physician Assistant; Referring Provider Internal Medicine Gastroenterology; Visit Provider Internal Medicine Medical Oncology | DX: D64.9 Anemia, unspecified (principal) | CPT/HCPCS: 99204; 99213 ==

== ENCOUNTER 2024-02-03 08:38 | Outpatient (AMB) | payer OTHER, SELFPAY ==
--- NOTE | 2024-02-03 09:07 | MHC.PC.OV ---
Vital Signs 02/03/24 09:08 Height 5 ft Weight 173 lb 2 oz BMI 33.8 BP 124/66 Blood Pressure Location Rt brachial Position Sitting Respiration 14 Pulse 91 Pulse Source Pulse Oximeter Pulse Oximetry (%) 96 Oxygen Delivery Method Room Air Oxygen Flow Rate 96 Intake Visit Reasons: labs/dm/bp Intake Note: Follow up and paperwork for leave. Allergies peach [PEACH] Allergy (Intermediate, Verified 01/24/24 08:32) DIFFICULTY BREATHING Tobacco use date assessed: 10/21/23 Dental Screening Dental Screen Date: 04/21/23 HPI labs/dm/bp HPI Details Pt is a 68 y/o femal ehwo presents today for a follow up. She did bring papers to fill out for fmla. She is frustated because she had a heart attack and left the hospital with a bunch of problems . Psych: she does states that she is tearful at times and just frustrated. She is angry that this all happened at once. She has a good support system with her sister. She does not want medication or to see anyone. Heme/onc: She states that they told her she likely has lupus, zainab, and possibility of underlying malignancy. She is awaiting follow up for rheum consult. She is on iron and folic acid. Her energy is actually feeling better. Endo: A1c today is 6. She has fluctuated to 6.5 but states that she got her diet under control and has been careful. CV: bp today is 124/66. She is on metoprolol. Cholesterol is controlled with atorvastatin. She is compliant with brilinta and aspirin. She recently saw Cardiology and states that she is feeling while in regards to her activity. Most recent cardiac catheterization data reviewed from 08/2023. Proximal LAD with 95% stenosis status post drug-eluting stent. Patent stent in the circumflex. Mid RCA with 60% stenosis. Continue long-term aspirin. For Brilinta, continue for 1 year total. Continue beta-blockers. She is on statins but there is a question of statin induced rhabdomyolysis in the past. We can continue to monitor. Check CK levels. There is indeed CK from [facility] which does not seem too high. Otherwise, PCSK9 inhibitors but in the past, she refused them. LDL cholesterol 56 mg/dL and triglycerides 54 mg/dL per [facility] labs. With regard to the question of cirrhosis, [facility] notes state that CT scan had shown cirrhosis with splenomegaly. Hepatitis panel was apparently negative. LFTs were elevated. Question of nonalcoholic fatty liver disease. She is awaiting GI appointment tomorrow. There is a concern for thrombocytopenia but multiple lab checks show platelet clumping. GI: She states that GI wanted to do a liver bx but that has to wait until she can safely temporarily stop the aspirin and brilinta for a short time. Her last platelets 85. [facility] Medical History (Updated 02/03/24 @ 09:51 by Elizabeth Agudelo PA-C) Dysphagia Dyslipidemia Hx of non-ST elevation myocardial infarction (NSTEMI) Diabetes CAD (coronary artery disease) Rhabdomyolysis Atherosclerotic cardiovascular disease Obesity Asthma Urgency incontinence Renal stones Surgical History Hx of lithotripsy S/P cardiac catheterization Hx laparoscopic cholecystectomy History of carpal tunnel release H/O colonoscopy Hx of cataract extraction Hx of cystoscopy Family History Father No problems noted. Mother No problems noted. Social History (Updated 01/24/24 @ 08:32 by Sadia Kapoor) Household Members: None Housing: Apartment Do you presently have visiting nurse or other home services: No Alcohol intake: current Alcohol intake frequency: holidays/special occasions only Patient Tobacco Use Status: Never used Tobacco e-Cigarette/Vaping Use: Never Used Second Hand Smoke Exposure: No service: No Current occupational status: employed Current occupation: [employer] Current occupational exposures/hazards: No Cognitive needs: No Hearing needs: No Vision needs: No Questionnaire Thrive Questionnaire Date Thrive assessed: 04/21/23 I am a: Patient What is your living situation today?: I choose not to answer this question Within the past 12 months, did the food you bought not last and you didn't have the money to get more?: I choose not to answer this question Within the past 12 months, did you worry whether your food would run out before you got money to buy more?: I choose not to answer this question Do you have trouble paying for medicines?: I choose not to answer this question Do you have trouble getting transportation to medical appointments?: I choose not to answer this question Do you have trouble paying your heating and electricity bill?: I choose not to answer this question Do you have trouble taking care of your child, family member or friend?: I choose not to answer this question Do you have trouble with day-to-day activities such as bathing, preparing meals, shopping, managing finances, etc.?: I choose not to answer this question Are you currently unemployed and looking for a job?: I choose not to answer this question Are you interested in more education?: I choose not to answer this question Please select the resources that you would like help with: None Currently or been in a relationship where the following occur: I choose not to answer THRIVE Score: 0 AUDIT C Alcohol Use Questionnaire (AUDIT-C) 1. How often do you have a drink containing alcohol?: Never Total Score: 0 RICKY-7 AMB Questionnaire RICKY-7 Date RICKY - 7 assessed: 04/21/23 Feeling nervous, anxious, or on edge: 0 = Not at all Not being able to stop or control worryin = Not at all Worrying too much about different things: 0 = Not at all Trouble relaxin = Not at all Being so restless that it is hard to sit still: 0 = Not at all Becoming easily annoyed or irritable: 0 = Not at all Feeling afraid as if something awful might happen: 0 = Not at all Total RICKY-7 score (0-4 normal; 5-9 mild; 10-14 moderate; 15-21 severe): 0 Source: Developed by Drs. Javier Marcos, Danielle Kimble, Dawson Oates and colleagues, with an educational wilbur from Personal. Physical exam (Primary Care) Vital Signs: Last Vital Signs Pulse 91 02/03/24 09:08 Resp 14 02/03/24 09:08 BP 124/66 02/03/24 09:08 Pulse Ox 96 02/03/24 09:08 Oxygen Delivery Method Room Air 02/03/24 09:08 Oxygen Flow Rate 96 02/03/24 09:08 BMI result Body Mass Index 33.8 Tobacco/Smoking Status: Tobacco use Status Tobacco use date assessed 10/21/23 02/03/24 09:13 Patient Tobacco Use Status Never used Tobacco 02/03/24 09:13 e-Cigarette/Vaping Use Never Used 02/03/24 09:13 Thrive Assessment: Date of Thrive Assessment Date Thrive assessed 04/21/23 02/03/24 09:13 Currently or been in a relationship where the following occur: I choose not to answer Const Orientation/consciousness: patient oriented x3 HENMT Ears: hearing grossly normal bilaterally Neck Thyroid: Thyroid normal Lymphatic: no lymphadenopathy noted Resp Auscultation: clear to auscultation bilaterally Cardio Rate: regular rate Rhythm: regular rhythm Heart sounds: S1 normal heart sound present and S2 normal heart sound present GI Inspection: Yes normal to inspection Palpation (GI): Soft to palpation and Other GI palpation findings present (nontender, no cva tenderness) Auscultation: normoactive bowel sounds Rectal Exam - Female: deferred Skin General skin exam: no rashes or lesions noted Neuro General: patient oriented x3, gait normal and no focal motor deficits Results AMB Hemoglobin A1c AMB Hemoglobin A1c 6.0 % Last Edit by Luz Martínez CMA on 02/03/24 09:57 Results Reviewed Results Reviewed: Laboratory Tests 12/10/23 01/24/24 11:38 09:36 WBC 6.3 RBC 3.46 L Hgb 9.9 L Hct 31.7 L Plt Count ,Citrate 85 L D ESR 90 H Absolute Retic 0.101 H Percent Retic 2.9 H Immature Retic Fraction 29.2 H Retic Hgb Equivalent 31.9 Sodium 138 Potassium 4.6 Chloride 109 H Carbon Dioxide 24 Creatinine 1.23 Estim Creat Clear Calc 41.1 Estimated GFR 44 Random Glucose 151 H Calcium 8.9 Iron 40 Ferritin 19 32 AST 55 H ALT 30 Lactate Dehydrogenase 203 Total Protein 8.8 H Albumin 2.7 L Assessment and Plan Assessment & Plan (1) Hypertension: Code(s): I10 - Essential (primary) hypertension Qualifiers: Hypertension type: primary hypertension Qualified Code(s): I10 - Essential (primary) hypertension Plan: BP well-controlled. Continue current regimen (2) Cirrhosis of liver: Code(s): K74.60 - Unspecified cirrhosis of liver Qualifiers: Hepatic cirrhosis type: unspecified hepatic cirrhosis Ascites presence: without ascites Qualified Code(s): K74.60 - Unspecified cirrhosis of liver Plan: Continue follow up with GI (3) Normochromic normocytic anemia: Code(s): D64.9 - Anemia, unspecified Plan: Continue follow up with Heme-Onc. Has referral to see Rheumatology (4) Prediabetes: Code(s): R73.03 - Prediabetes Plan: A1c today was 6. She has been careful with her diet. She will follow up in 3-4 months. Sooner if needed. Patient understands and agrees with the plan. Orders: Orders AMB Hemoglobin A1c Today E11.9 - Type 2 diabetes mellitus without complications Coding Level of Care Code Est Pt Level 4 (85472) Diagnoses Primary hypertension I10 Hypertension type: primary hypertension Cirrhosis of liver without ascites, unspecified hepatic cirrhosis type K74.60 Hepatic cirrhosis type: unspecified hepatic cirrhosis Ascites presence: without ascites Normochromic normocytic anemia D64.9 Prediabetes R73.03
[2024-02-03 09:08] VITALS: BP 124/66; PULSE 91; RESP 14; O2SAT 96; BMI 33.8
== END 2024-02-03 09:54 | disposition home or self-care (01) ==
PROVIDERS: Visit Provider Physician Assistant
DX: I10 Essential (primary) hypertension (principal); K74.60 Unspecified cirrhosis of liver; D64.9 Anemia, unspecified; R73.03 Prediabetes; E11.9 Type 2 diabetes mellitus without complications

== ENCOUNTER → 2024-02-03 08:38 | Outpatient (BNVA) | payer OTHER, SELFPAY | PROVIDERS: Visit Provider Physician Assistant | DX: I10 Essential (primary) hypertension (principal); K74.60 Unspecified cirrhosis of liver; D64.9 Anemia, unspecified; R73.03 Prediabetes | CPT/HCPCS: 83036 ==

== ENCOUNTER 2024-02-22 09:03 | Outpatient (REF) | payer OTHER, SELFPAY ==
--- NOTE | ~2024-02-22 | FL_ITS ---
EXAMINATION: XR FLUOROSCOPY UPPER GI WITH AIR CLINICAL INFORMATION: Dysphagia COMPARISON: None TECHNIQUE: Fluoroscopic air contrast upper GI examination was performed utilizing standard techniques with thin and thick barium and effervescent granules. Numerous spot images were obtained. FINDINGS: Lateral cine images of the oropharynx and hypopharynx demonstrate normal swallow mechanism with normal epiglottic inversion and soft palate elevation. No tracheal penetration, glottic or subglottic aspiration identified. No nasopharyngeal reflux present. Hypopharyngeal structures appear normal without evidence of mass or diverticulum. There was no significant cricopharyngeal achalasia. There is an anterior cervical web present at the level of C4. Dual and single contrast images of the esophagus demonstrates smooth narrowing of the upper cervical esophagus at the level of the aortic arch suggestive of a benign type stricture. Normal contour and mucosal pattern. No evidence of mass or gross ulcerations identified. Esophageal peristalsis is mildly disorganized. There is stasis of the barium tablet at the thoracic inlet that failed the past distally into the stomach. Surgical clips are present in the upper quadrant. A small type I hiatal hernia is present. No significant gastroesophageal reflux was seen during the course of the examination and on reflux views. Dual contrast and single contrast images of the stomach demonstrated a normal contour. The areae gastrica have a thickened appearance, suggestive of gastritis. No masses or ulcerations are seen. Contrast freely passed into the gastric antrum and duodenal bulb without delay. Single and air-contrast images of the duodenal bulb demonstrate no abnormality. The duodenal sweep has a normal appearance, course, and mucosal fold appearance. The imaged proximal jejunum has a normal fold pattern and caliber. A cardiac stent is incidentally noted. FLUOROSCOPY TIME: 6 minutes 16 seconds DOSE AREA PRODUCT: 2892 uGy-m2 (microgray-meter squared) FL/FL barium swallow IMPRESSION: 1. 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 Mildly disorganized esophageal peristalsis. There is stasis of the barium tablet at the thoracic inlet. The tablet fails to pass distally into the stomach. 3. Smooth narrowing of the proximal one third of the esophagus at the level of the aortic arch suggestive of a benign type stricture. Would correlate for any known history of radiation or caustic ingestion. 4. Small type I hiatal hernia. 5. Thickened appearance of the areae gastrica, suggestive of gastritis. Given the above findings, EGD may be of benefit for further elucidation. This procedure was performed by Jeremiah Vallejo PA-C, and supervised by Dr. Singh Electronically signed by: Héctor Singh MD 02/22/2024 05:15 PM EDT
== END 2024-02-22 09:04 | disposition home or self-care (01) ==
LOC: HO.XRAY 09:03
PROVIDERS: Visit Provider Internal Medicine Gastroenterology
DX: R13.10 Dysphagia, unspecified (principal)
CPT/HCPCS: 74220

== ENCOUNTER → 2024-02-22 09:08 | Outpatient (BNV) | payer OTHER, SELFPAY | PROVIDERS: Visit Provider Radiology Diagnostic Radiology | DX: R13.10 Dysphagia, unspecified (principal) | CPT/HCPCS: 74221 ==

== ENCOUNTER 2024-03-16 11:06 | Outpatient (AMB) | payer OTHER, SELFPAY ==
--- NOTE | 2024-03-16 11:11 | MHC.OFFVIS ---
Vital Signs 03/16/24 11:12 Height 5 ft Weight 174 lb BMI 34.0 BP 136/76 Blood Pressure Location Lt brachial Position Sitting Pulse 93 Pulse Source Pulse Oximeter Pulse Oximetry (%) 98 Oxygen Delivery Method Room Air Intake Visit Reasons: Lupus ,+ CASA/lm Intake Note: Patient presents today as a new patient internally referred by Dr. Artis for Lupus. Allergies peach [PEACH] Allergy (Intermediate, Verified 03/16/24 11:22) DIFFICULTY BREATHING Medication List - Last Reconciled 03/16/24 by Kailey Rodríguez MD albuterol sulfate 90 mcg/actuation 2 puffs inhalation Q4-6H PRN ascorbic acid (vitamin C) 1 g PO DAILY aspirin (Adult Low Dose Aspirin) 81 mg PO DAILY 90 days atorvastatin 40 mg PO BEDTIME ferrous sulfate 325 mg PO DAILY folic acid 1 mg PO DAILY metoprolol tartrate 25 mg PO BID 90 days sodium bicarbonate 650 mg PO BID ticagrelor (Brilinta) 90 mg PO BID 90 days vitamin A palmitate 10,000 units PO DAILY HPI Comments Details: Patient is a 68-year-old female with hyperlipidemia, hypertension complicated by coronary artery disease status post circumflex stenting x2 (2020, 09/2023) who presents for evaluation of positive CASA in the setting of anemia and thrombocytopenia Thrombocytopenia. On review of the labs she has had varying degrees of thrombocytopenia all the way back to 01/27/2018. No history as per patient of ITP or being treated as such. No history of alcoholism however she does note being diagnosed with fatty liver disease and cirrhosis had liver elastography 12/2023 which confirmed cirrhosis. No gum bleeding or epistaxis Anemia. Patient had normal hemoglobin up to 08/27/2022. In 08/28/2023 she was admitted to [facility] for NSTEMI and had stents placed. During that hospitalization she was told that she had low blood count. She was also told that she had cirrhosis. No history of alcoholism. She was sent to gastroenterology with Dr. Cross who sent her for evaluation of cirrhosis Denies rashes, photosensitivity, alopecia, oral/nasal ulcers, sicca symptoms, lymphadenopathy, chest pain/shortness of breath, inflammatory type joint pain, foamy urine, lower extremity edema, muscle weakness, Raynaud's Also denies history of seizure, CVA, psychosis, history of kidney problems, history of cytopenias, history of VTE including PE or DVTs OB History: Never been Family History: Cousin with lupus PFSH Medical History (Updated 03/16/24 @ 11:27 by Kailey Rodríguez MD) Positive CASA (antinuclear antibody) Dysphagia Dyslipidemia Hx of non-ST elevation myocardial infarction (NSTEMI) Diabetes CAD (coronary artery disease) Rhabdomyolysis Atherosclerotic cardiovascular disease Obesity Asthma Urgency incontinence Renal stones Surgical History Hx of lithotripsy S/P cardiac catheterization Hx laparoscopic cholecystectomy History of carpal tunnel release H/O colonoscopy Hx of cataract extraction Hx of cystoscopy Family History Father No problems noted. Mother No problems noted. Social History Household Members: None Housing: Apartment Do you presently have visiting nurse or other home services: No Alcohol intake: current Alcohol intake frequency: holidays/special occasions only Patient Tobacco Use Status: Never used Tobacco e-Cigarette/Vaping Use: Never Used Second Hand Smoke Exposure: No service: No Current occupational status: employed Current occupation: [employer] Current occupational exposures/hazards: No Cognitive needs: No Hearing needs: No Vision needs: No Review of Systems Const Details: Review of Systems Constitutional: Denies fever, chills, weight loss ENT: Denies vision changes, eye pain or eye redness, dental caries, dry mouth GI: Denies nausea, vomiting, diarrhea, abdominal pain, change in BM Pulm: Denies SOB, CERDA, hemoptysis, wheezing Cards: Denies chest pain, palpitations Skin: Denies Raynaud's, rash, nail changes, photosensitivity, SUEDING MACHINE TENDER: Denies headaches, weakness, paresthesias, recurrent falls MSK: as per HPI All other systems reviewed and are unremarkable except noted above Physical Exam Vital Signs: Last Vital Signs Pulse 93 03/16/24 11:12 BP 136/76 03/16/24 11:12 Pulse Ox 98 03/16/24 11:12 Oxygen Delivery Method Room Air 03/16/24 11:12 BMI result Body Mass Index 34.0 Physical Examination CONSTITUITIONAL Patient alert and cooperative. Well appearing and in no apparent painful distress HEENT Conjunctiva and sclera clear. ?Pupils equal round and reactive to light. ?No lymphadenopathy. ?Normal dentition. No oral or nasal ulcers noted. No evidence of discoid rash to the tarn of ears CHEST/RESPIRATORY SYSTEM Normal respiratory effort and able to speak in complete sentences. ?Clear to auscultation bilaterally. ?No crackles, rales, rhonchi, wheezes heard. CARDIAC SYSTEM Regular rate and rhythm. ?S1 and S2 heard no murmurs. ?Radial pulses intact bilaterally MSK Hands: ?Good mammalogy teacher strength bilaterally - 5/5. ?No deformities noted. ?No synovitis noted to the MCPs, PIPs or DIPs. ?No tenderness to palpation of these joints. Wrists: ?Full range of motion at the wrists without pain. ?No tenderness to palpation or synovitis noted to the wrists. Elbows: Full range of motion without pain. No tenderness, weakness, swelling, increased warmth or erythema. Shoulders: Full range of motion without pain. No tenderness, weakness, swelling, increased warmth or erythema. Hips: Full range of motion without pain. Hip bursa: No tenderness to palpation Knees: ?Full range of motion. ?No tenderness, swelling, increased warmth or erythema.?No effusion or crepitations Ankles: Full range of motion. ?No tenderness, swelling, increased warmth or erythema.? Feet: ?Negative squeeze test. ?No tenderness to palpation or swelling of the MTPs. Tender points:??No tenderness to palpation of the neck, shoulders, chest, elbows, hips, buttocks or knees. SKIN Skin intact without rashes. Results Reviewed Results Reviewed: Laboratory Tests 12/10/23 01/24/24 02/25/24 11:38 09:36 11:42 WBC 6.9 RBC 3.43 L Hgb 9.6 L Hct 31.1 L Plt Count ,Citrate 85 L D Sodium 137 Potassium 4.7 Chloride 107 Carbon Dioxide 22 BUN 17 H Creatinine 1.03 Estimated GFR 53 AST 77 H ALT 37 H Total Protein 8.9 H Albumin 2.8 L CASA Screen POSITIVE A CASA Titer 1:1280 H CASA Titer 2 1:40 H CASA Pattern 2 Nuclear, Homogeneous A Anti-Smooth Muscle Ab 63 H Assessment & Plan Assessment & Plan (1) Positive CAAS (antinuclear antibody): Code(s): R76.8 - Other specified abnormal immunological findings in serum Category: Medical Plan: #Positive CASA in the setting of anemia and thrombocytopenia At this time low suspicion for autoimmune disease such as lupus, scleroderma or Sjogren's. She does not have any of the polytypic manifestations associated with these diseases. The positive CASA and a positive smooth muscle antibody could indicate autoimmune hepatitis. Especially in the setting of her having cirrhosis maybe she had undiagnosed autoimmune hepatitis and now with cirrhosis from that. Her anemia is relatively new and is on a background of her recent admission for NSTEMI. While her platelet count has been low since 2018 I do not believe this is related to an autoimmune connective tissue disease. We will send the appropriate workup. Ultimately I think this patient needs a bone marrow biopsy which I know is going to be delayed because of her antiplatelet therapy for her recent NSTEMI. Plan I spent 45 minutes reviewing the record and labs, seeing the patient, discussing the treatment plan and documenting in the medical record Orders: Orders CASA Reflex Titer and Pattern Today R76.8 - Other specified abnormal immunological findings in serum Anti DNA DS Antibody Today R76.8 - Other specified abnormal immunological findings in serum Complement C3 Today R76.8 - Other specified abnormal immunological findings in serum Complement C4 Today R76.8 - Other specified abnormal immunological findings in serum Erythrocyte Sedimentation Rate Today R76.8 - Other specified abnormal immunological findings in serum Protein Electrophoresis,Ran Ur Today R76.8 - Other specified abnormal immunological findings in serum Protein Creatinine Ratio, Ur Today R76.8 - Other specified abnormal immunological findings in serum Beta-2 Glycoprotein Antibody Today R76.8 - Other specified abnormal immunological findings in serum Cardiolipin Antibodies Today R76.8 - Other specified abnormal immunological findings in serum Lupus Anticoagulant Panel Today R76.8 - Other specified abnormal immunological findings in serum Cyclic Citrullinated Peptide Today R76.8 - Other specified abnormal immunological findings in serum Anti Extractable Nuclear Ag Today R76.8 - Other specified abnormal immunological findings in serum Complete Blood Count Auto Diff Today R76.8 - Other specified abnormal immunological findings in serum Comprehensive Met. Panel Today R76.8 - Other specified abnormal immunological findings in serum C Reactive Protein Today R76.8 - Other specified abnormal immunological findings in serum Direct Iraj (LAURI) Today R76.8 - Other specified abnormal immunological findings in serum Rheumatoid Factor Today R76.8 - Other specified abnormal immunological findings in serum Mitochondrial Antibody Today R76.8 - Other specified abnormal immunological findings in serum Coding Level of Care Code New Pt Level 4 (77037) Complex EM visit Add On G2211 Diagnoses Positive CASA (antinuclear antibody) R76.8
[2024-03-16 11:12] VITALS: BP 136/76; PULSE 93; O2SAT 98; BMI 34.0
== END 2024-03-16 11:52 | disposition home or self-care (01) ==
LOC: HO.RHE 11:07
PROVIDERS: Visit Provider Student in an Organized Health Care Education/Training Program
DX: R76.8 Other specified abnormal immunological findings in serum (principal)
CPT/HCPCS: 99204

== ENCOUNTER 2024-03-16 11:57 | Outpatient (REF) | payer OTHER, SELFPAY | END 2024-03-16 11:58 | disposition home or self-care (01) | LOC: HO.LAB 11:57 | PROVIDERS: Visit Provider Student in an Organized Health Care Education/Training Program | DX: Z13.89 Encounter for screening for other disorder (principal) ==

== ENCOUNTER 2024-03-17 10:06 | Outpatient (REF) | payer OTHER, SELFPAY ==
[2024-03-17 12:18] LABS: Basophils Absolute Auto 0.1 X10*3/uL (0.0-0.2); Basophils Percent Auto 0.8 % (0-2); Eosinophils Absolute Auto 0.4 X10*3/uL (0.0-0.4); Eosinophils Percent Auto 5.1 % (0-4); Hemoglobin 10.3 g/dl (12.0-16.0); Imm Gran Abs Auto 0.04 X10*3/uL (0.00-0.03); Imm Gran Pct Auto 0.5 % (0.0-0.4); Lymphocytes Absolute Auto 2.2 X10*3/uL (1.2-4.9); Lymphocytes Percent Auto 25.2 % (20-40); MANUAL DIFF FLAG SCAN; Mean Corpuscular HGB Conc 30.3 g/dl (31.0-35.0); Mean Corpuscular Hemoglobin 27.2 pg (27.0-33.0); Mean Corpuscular Volume 89.9 fL (80.0-98.0); Monocytes Absolute Auto 0.7 X10*3/uL (0.1-1.2); Monocytes Percent Auto 7.9 % (2-11); Neutrophils Absolute Auto 5.2 x10*3/uL (2.0-8.3); Neutrophils Percent Auto 60.5 % (45-73); PLT CLUMP 1; Red Blood Count 3.78 X10*6/uL (4.20-5.50); SCAN SMEAR FLAG 1
[2024-03-17 12:29] LABS: White Blood Count 8.7 X10*3/uL (4.8-10.8)
[2024-03-17 12:31] LABS: SLIDE REVIEW VERIFIED
[2024-03-17 12:43] LABS: Erythrocyte Sedimentation Rate 79 MM/HR (0-20)
[2024-03-17 12:55] LABS: Creatinine Urine 112.68 mg/dL; Protein/Creatinine Ratio, Ur 0.71 (<0.2); Total Protein Urine Random 80 mg/dL (<12)
[2024-03-17 12:55] LABS: Rheumatoid Factor < 13.0 IU/mL (<15.0)
[2024-03-17 12:57] LABS: Alanine Aminotransferase 51 U/L (0-31); Alkaline Phosphatase 99 U/L (39-117); Anion Gap 9 (12-20); Aspartate Amino Transferase 90 U/L (5-31); Bilirubin Total 0.6 mg/dL (0.0-1.0); Blood Urea Nitrogen 18 mg/dL (9-16); C Reactive Protein 0.43 mg/dL (< or = 0.50); Calcium 8.9 mg/dL (8.4-10.2); Carbon Dioxide 22 mmol/L (22-29); Chloride 111 mmol/L (96-108); Estimated Glomerular Filt Rate 47; Glucose Random 148 mg/dL (60-115); Potassium 3.6 mmol/L (3.3-5.1); Sodium 138 mmol/L (135-145); Total Protein 9.5 g/dL (6.5-8.0)
[2024-03-20 08:33] LABS: Complement C3 104 mg/dL (83-193)
[2024-03-20 18:18] LABS: Anti DNA DS Antibody 2 IU/mL; SM/Ribonucleoprotein Ab <1.0 NEG AI (<1.0 NEG); Smith Protein <1.0 NEG AI (<1.0 NEG)
[2024-03-20 22:04] LABS: Cardiolipin IgG Ab <2.0 GPL-U/mL; Cardiolipin IgM Ab 6.5 MPL-U/mL
[2024-03-21 09:43] LABS: PEU-Protein Creat Ratio Rand 1.358 (0.024-0.184); PEU-Rand. Prot/Creat Ratio 1358 mg/g creat (24-184); PEU-Random Ur. Gamma Globulin 49 %; PEU-Random Urine A1 Globulin 2 %; PEU-Random Urine A2 Globulin 5 %; PEU-Random Urine Albumin 33 %; PEU-Random Urine Beta Globulin 11 %; PEU-Random Urine Creatinine 109 mg/dL (20-275); PEU-Random Urine Protein 148 mg/dL (5-24)
[2024-03-21 12:43] LABS: Mitochondrial Antibodies NEGATIVE (NEGATIVE)
[2024-03-21 19:48] LABS: Cyclic Citrullinated Peptide <16 UNITS
[2024-03-21 22:17] LABS: PTT (LAC) Screen 36 sec (<=40)
[2024-03-22 15:53] LABS: Anti Nuclear Antibody Screen NEGATIVE (NEGATIVE)
[2024-03-22 21:59] LABS: Beta-2 Glycoprotein IgA <2.0 U/mL (<20.0); Beta-2 Glycoprotein IgG <2.0 U/mL (<20.0); Beta-2 Glycoprotein IgM 4.3 U/mL (<20.0)
== END 2024-03-17 10:07 | disposition home or self-care (01) ==
LOC: HO.LAB 10:06
PROVIDERS: PCP Physician Assistant; Visit Provider Student in an Organized Health Care Education/Training Program
DX: R76.8 Other specified abnormal immunological findings in serum (principal)
CPT/HCPCS: 80053; 82570; 84156; 84166; 85025; 85597; 85598; 85613; 85652; 85730; 86038; 86140; 86146; 86147; 86160; 86200; 86225; 86235; 86381; 86431; 86880

== ENCOUNTER 2024-03-30 09:26 | Outpatient (REF) | payer OTHER, SELFPAY | END 2024-03-30 09:27 | disposition home or self-care (01) | LOC: HO.LNP 09:26 | PROVIDERS: Visit Provider Urology | DX: R31.9 Hematuria, unspecified (principal) | CPT/HCPCS: 81003 ==

== ENCOUNTER 2024-03-30 09:26 | Outpatient (AMB) | payer OTHER, SELFPAY ==
--- NOTE | 2024-03-29 21:18 | A.OFFVIS_ITS ---
Intake Visit Reasons: cysto Intake Note: Patient is present for Cystoscopy Urology Medication:NONE Antibiotic Allergy:NONE Blood Thinner:ASPIRIN Lot:[id number] Exp:03/13/27 Clinical Trials Specialist Required: No Allergies peach [PEACH] Allergy (Intermediate, Verified 03/30/24 09:31) DIFFICULTY BREATHING Medication List - Last Reconciled 03/30/24 by Chuyita Ratliff MD albuterol sulfate 90 mcg/actuation 2 puffs inhalation Q4-6H PRN ascorbic acid (vitamin C) 1 g PO DAILY aspirin (Adult Low Dose Aspirin) 81 mg PO DAILY 90 days atorvastatin 40 mg PO BEDTIME ferrous sulfate 325 mg PO DAILY folic acid 1 mg PO DAILY hydroxychloroquine (Plaquenil) 200 mg PO BID metoprolol tartrate 25 mg PO BID 90 days sodium bicarbonate 650 mg PO BID ticagrelor (Brilinta) 90 mg PO BID 90 days vitamin A palmitate 10,000 units PO DAILY HPI Comments Details: 03/29/24--Claudia is here for fu. She states she continues workup with Hematology and is being referred to Nephrology due to proteinuria. UA - persistent hematuria. She denies dysuria. Will send urine for FISH, discussed further evaluation with cytoscopy bladder biopsies, bilateral retrogrades, possible left ureteroscopy, will get a CT abd/pelvis as well to reevaluate finding on left kidney. Review of chart: 01/05/24--Claudia is a 68-year-old female who was initially evaluated as a New patient on 11/18/23. Here for office cystoscopy. The pt was admitted to [facility] in August for an [place]. She states that 2 cardiac stents were placed. She states she had one cardiac stent placed in 2020. She was restarted on Brilinta. She states that she also has low platelets and is scheduled to see Hematology. During hospitalizaion, at [facility] she was told she had kidney stones. She had CT imaging that noted a 1.7 linear calcification of the left renal pelvis and soft tissue changes which may be inflammatory versus neoplastic changes. The patient has had a history of kidney stones and has seen Dr. Salcido in the past. Office cystoscopy- mild erythematous changes. CTAP- 01/04/24--KIDNEYS AND URETERS: There is right renal cortical thinning. The left kidney is normal in size, shape, and attenuation. No hydronephrosis, hydroureter, or calculi seen. There is ill-defined circumferential soft tissue opacity adjacent to the left renal pelvis and the proximal left The left ureteropelvic junction appears narrowed. [facility] Medical History Positive CASA (antinuclear antibody) Dysphagia Dyslipidemia Hx of non-ST elevation myocardial infarction (NSTEMI) Diabetes CAD (coronary artery disease) Rhabdomyolysis Atherosclerotic cardiovascular disease Obesity Asthma Urgency incontinence Renal stones Surgical History Hx of lithotripsy S/P cardiac catheterization Hx laparoscopic cholecystectomy History of carpal tunnel release H/O colonoscopy Hx of cataract extraction Hx of cystoscopy Family History Father No problems noted. Mother No problems noted. Social History Household Members: None Housing: Apartment Do you presently have visiting nurse or other home services: No Alcohol intake: current Alcohol intake frequency: holidays/special occasions only Patient Tobacco Use Status: Never used Tobacco e-Cigarette/Vaping Use: Never Used Second Hand Smoke Exposure: No service: No Current occupational status: employed Current occupation: [employer] Current occupational exposures/hazards: No Cognitive needs: No Hearing needs: No Vision needs: No Review of Systems Const All systems reviewed & are unremarkable except as noted in HPI and below Reports no additional complaints Eyes Reports no additional complaints ENT Reports no additional complaints Card Reports no additional complaints Resp Reports no additional complaints GI Reports no additional complaints Reports as per HPI Musc Reports no additional complaints Skin/Breast Reports system reviewed and no additional complaints, except as documented Neuro Reports no additional complaints Psych Reports no additional complaints Endo Reports no additional complaints Kobi/Lymph Reports no additional complaints Aller/Immun Reports no additional complaints Results AMB Urinalysis, Automated UA Leukoctes 125 Juju/uL Last Edit by DARINEL Marie on 03/30/24 09:40 UA Nitrite Negative Last Edit by DARINEL Marie on 03/30/24 09:40 UA Urobilinogen 1 mg/dL Last Edit by DARINEL Marie on 03/30/24 09:40 UA Protein 30 mg/dL Last Edit by DARINEL Marie on 03/30/24 09:40 UA pH 5.5 Last Edit by DARINEL Marie on 03/30/24 09:40 UA Blood 200 Will/uL Last Edit by Jose Wang CCM on 03/30/24 09:40 UA Specific [place] 13.030 Last Edit by DARINEL Marie on 03/30/24 09 :40 UA Ketone Negative Last Edit by DARINEL Marie on 03/30/24 09:40 UA Bilirubin 0 mg/dL Last Edit by DARINEL Marie on 03/30/24 09:40 UA Glucose 0 mg/dL Last Edit by DARINEL Marie on 03/30/24 09:40 Results Reviewed Results Reviewed: Laboratory Last Values Urine pH (Auto) 5.5 03/30/24 09:39 Specific [place] (Auto) 13.030 03/30/24 09:39 Urine Protein (Auto) 30 mg/dL 03/30/24 09:39 Glucose (UA)(Auto) 0 mg/dL 03/30/24 09:39 Urine Ketones (Auto) Negative 03/30/24 09:39 Urine Blood (Auto) 200 Will/uL 03/30/24 09:39 Urine Nitrite (Auto) Negative 03/30/24 09:39 Urine Bilirubin (Auto) 0 mg/dL 03/30/24 09:39 Urine Urobilinogen (Auto) 1 mg/dL 03/30/24 09:39 Leukocyte Esterase (Auto) 125 Juju/uL 03/30/24 09:39 Collected: 11/18/23 Location: [facility] Received: 11/19/23 Diagnosis Urine: Non-diangostic. COMMENT: Examination of a monolayer preparation slide shows a hypocellular specimen with red blood cells and occasional inflammatory cells. Clinical History Urinary tract infection Material Received Urine Gross Description Received is 5 cc of cloudy reddish fluid from which a ThinPrep slide is prepared. Date of Service: 01/04/24 CT ABDOMEN AND PELVIS WITHOUT AND WITH CONTRAST CLINICAL INFORMATION: Gross hematuria. COMPARISON: None available. TECHNIQUE: Noncontrast CT of the abdomen and pelvis is performed followed by split bolus contrast-enhanced images using 85 mL Omnipaque 350 contrast. Postcontrast imaging is performed during the combined nephrogram and excretion phase. Sagittal and coronal reformatted images were obtained on the technologist's workstation for both the precontrast and postcontrast phases. This CT examination was performed using dose optimization techniques as appropriate, variously including the following: *Automated exposure control. *Adjustment of mA and/or kV according to patient size (this includes techniques or standardized protocols for targeted exams where dose is matched to indication/reason for exam; i.e. extremities or head). *Use of iterative reconstruction technique. DLP: 1005 mGy-cm FINDINGS: LUNG BASES: There is a very small left pleural effusion. The lung bases are clear. There are coronary artery atherosclerotic calcifications. LIVER, GALLBLADDER, AND BILIARY TREE: The liver is normal in attenuation. There is a lobulated hepatic contour, and there is a prominent caudate lobe, features which may be seen in association with cirrhosis. No focal hepatic lesion or biliary ductal dilatation is present. The gallbladder is surgically absent. PANCREAS: Unremarkable. SPLEEN: There is splenomegaly, with a longitudinal span of 13.5 cm. ADRENAL GLANDS: Unremarkable. KIDNEYS AND URETERS: There is right renal cortical thinning. The left kidney is normal in size, shape, and attenuation. No hydronephrosis, hydroureter, or calculi seen. There is ill-defined circumferential soft tissue opacity adjacent to the left renal pelvis and the proximal left ureter (10:49-57 and 8:36-47). The left ureteropelvic junction appears narrowed (10:49). BLADDER: Unremarkable. GASTROINTESTINAL TRACT: There is mild diverticulosis, without acute diverticulitis. There is no focal bowel wall thickening. No obstruction, free intraperitoneal air or abscess is seen. The vermiform appendix appears normal. ABDOMINAL WALL: No significant hernia is appreciated. LYMPH NODES: There are shotty, nonpathologically enlarged para-aortic and mesenteric lymph nodes. One of the largest of these is located anterior to the upper abdominal aorta (18:36), measuring 1.0 x 0.8 cm. No sizable abdominopelvic lymphadenopathy is seen. VASCULAR: There is moderate aortoiliac atherosclerotic calcification. No abdominal aortic aneurysm or dissection is seen. The left ovarian vein is very prominent (i.e. 10:46-50), with distention and collateral formation. PELVIC VISCERA: The uterus and adnexa are unremarkable. OSSEUS STRUCTURES: There is a moderate lumbar levoscoliosis. There is multi-level thoracolumbar endplate arthropathy. A moderate Schmorl's node seen of the L4 lower endplate. No acute or aggressive osseous finding is noted. IMPRESSION: 1. There is narrowing of the left ureteropelvic junction, and there is ill-defined soft tissue density adjacent to the left renal pelvis and the proximal left ureter. This may be infectious or inflammatory in etiology, and the possibility of a neoplasm such as a transitional cell carcinoma is not excluded. Urology evaluation and management is recommended, with consideration for ureteroscopy. 2. The right kidney shows cortical thinning. 3. No urinary calculus or obstruction is seen. 4. There is prominence of the left ovarian vein, suggesting insufficiency. 5. There is mild diverticulosis, without diverticulitis. 6. There are shotty, nonpathologically enlarged periaortic and mesenteric lymph nodes, as detailed. Recommend management clinical basis. No pathologically enlarged abdominopelvic lymph nodes are seen. 7. There is mild splenomegaly. 8. No aggressive osseous lesion is seen. Assessment & Plan Assessment & Plan (1) Gross hematuria: Code(s): R31.0 - Gross hematuria Category: Medical (2) Abnormal CT scan, kidney: Code(s): R93.429 - Abnormal radiologic findings on diagnostic imaging of unspecified kidney Category: Medical (3) Calcium nephrolithiasis: Code(s): N20.0 - Calculus of kidney Category: Medical (4) Renal mass of unknown nature: Code(s): N28.89 - Other specified disorders of kidney and ureter Category: Medical (5) Hematuria: Code(s): R31.9 - Hematuria, unspecified Category: Medical Plan UA - persistent hematuria. Will send urine for FISH, discussed further evaluation with cytoscopy bladder biopsies, bilateral retrogrades, possible left ureteroscopy, will get a CT abd/pelvis as well to reevaluate finding on left kidney. Orders: Orders CT abdomen wo/w IV con Today N28.89 - Other specified disorders of kidney and ureter, R31.9 - Hematuria, unspecified, R93.429 - Abnormal radiologic findings on diagnostic imaging of unspecified kidney AMB Urinalysis Automated Today Z13.9 - Encounter for screening, unspecified Patient Instructions: The patient had an opportunity to ask questions regarding treatment plan. The patient expressed understanding and agreement with the above treatment plan. The patient is aware they should contact our office by phone for worsening of their current condition or the appearance of new symptoms. Compliance is encouraged with any medications and followup testing that is ordered. It is a privilege to be allowed the opportunity to participate in the urologic care of your patient. If you have any questions or concerns regarding treatment for the above conditions please do not hesitate to contact me. The office telephone contact is [phone]. This note is constructed in part using voice recognition software. While every effort has been made to ensure accuracy gas plant technician errors may have been included. Yours sincerely, Chuyita Ratliff MD Coding Level of Care Code Est Pt Level 4 (45469) Diagnoses Gross hematuria R31.[address] scan, kidney R93.429 Calcium nephrolithiasis N20.0 Renal mass of unknown nature N28.89 Hematuria R31.9
== END 2024-03-30 10:13 | disposition home or self-care (01) ==
PROVIDERS: Visit Provider Urology
DX: R31.0 Gross hematuria (principal); R93.429 Abnormal radiologic findings on diagnostic imaging of unspecified kidney; N20.0 Calculus of kidney; N28.89 Other specified disorders of kidney and ureter; R31.9 Hematuria, unspecified; Z13.9 Encounter for screening, unspecified
CPT/HCPCS: 99214

== ENCOUNTER 2024-04-13 09:53 | Outpatient (AMB) | payer OTHER, SELFPAY ==
[2024-04-13 10:03] VITALS: BP 118/60; PULSE 90; BMI 33.7
--- NOTE | 2024-04-13 10:03 | A.OFFVIS_ITS ---
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: No Accompanied by: Self / Same As Patient Allergies peach [PEACH] Allergy (Intermediate, Verified 03/30/24 09:31) DIFFICULTY BREATHING Medication List - Last Reconciled 04/13/24 by Reid Oliveira MD albuterol sulfate 90 mcg/actuation 2 puffs inhalation Q4-6H PRN ascorbic acid (vitamin C) 1 g PO DAILY aspirin (Adult Low Dose Aspirin) 81 mg PO DAILY 90 days atorvastatin 40 mg PO BEDTIME ferrous sulfate 325 mg PO DAILY folic acid 1 mg PO DAILY hydroxychloroquine (Plaquenil) 200 mg PO BID metoprolol tartrate 25 mg PO BID 90 days ticagrelor (Brilinta) 90 mg PO BID 90 days vitamin A palmitate 10,000 units PO DAILY HPI Comments Details: Claudia returns for follow-up regarding coronary artery disease. To recall, in September 2020, she had NSTEMI and underwent circumflex stenting. In 08/2023, had another hospitalization to [facility] for NSTEMI. She underwent cardiac catheterization and LAD stenting. Overall, she is doing good. No cardiac symptoms whatsoever. In the past, she also had an admission for rhabdomyolysis. Question of statin related but she went back on statins after that anyway and has been doing fine. Hence not clear. Otherwise, she is having hematuria and sees urology for that. [facility] Medical History Positive CASA (antinuclear antibody) Dysphagia Dyslipidemia Hx of non-ST elevation myocardial infarction (NSTEMI) Diabetes CAD (coronary artery disease) Rhabdomyolysis Atherosclerotic cardiovascular disease Obesity Asthma Urgency incontinence Renal stones Surgical History Hx of lithotripsy S/P cardiac catheterization Hx laparoscopic cholecystectomy History of carpal tunnel release H/O colonoscopy Hx of cataract extraction Hx of cystoscopy Family History Father No problems noted. Mother No problems noted. Social History Household Members: None Housing: Apartment Do you presently have visiting nurse or other home services: No Alcohol intake: current Alcohol intake frequency: holidays/special occasions only Patient Tobacco Use Status: Never used Tobacco e-Cigarette/Vaping Use: Never Used Second Hand Smoke Exposure: No service: No Current occupational status: employed Current occupation: [employer] Current occupational exposures/hazards: No Cognitive needs: No Hearing needs: No Vision needs: No Review of Systems Const Denies chills, Denies fatigue, Denies fever(s), Denies weight gain and Denies weight loss ENT Denies dizziness Card Denies chest pain, Denies leg edema, Denies lightheadedness, Denies palpitations, Denies dyspnea on exertion, Denies orthopnea and Denies other Resp Denies cough and Denies dyspnea on exertion GI Denies hematochezia and Denies change in stool character Musc Denies abnormal gait, Denies muscle weakness, Denies numbness, Denies radiating pain into limb and Denies tingling Neuro Denies abnormal gait, Denies dizziness, Denies numbness and Denies tingling Endo Denies fatigue and Denies palpitations Physical Exam Vital Signs: Last Vital Signs Pulse 90 04/13/24 10:03 BP 118/60 04/13/24 10:03 BMI result Body Mass Index 33.7 Const General: comfortable and no acute distress Orientation/consciousness: patient oriented x3 HEENT Other: Unremarkable Head: Yes normal to inspection Neck Neck: Yes normal visual inspection Chest Chest palpation & inspection: normal inspection of the chest Resp Auscultation: clear to auscultation bilaterally Cardio Palpation: normal PMI Heart sounds: S1 normal heart sound present, S2 normal heart sound present, no gallops, no murmurs and no rubs GI Palpation (GI): Soft to palpation Back/Spine/Pelvis Other: unremarkable Skin General skin exam: no rashes or lesions noted Neuro General: patient oriented x3 Extrem General: Yes normal to inspection Psych Mental Status: mental status grossly normal Assessment & Plan Assessment & Plan (1) Atherosclerotic cardiovascular disease: Code(s): I25.10 - Atherosclerotic heart disease of [place] coronary artery without angina pectoris Category: Medical (2) Non-ST elevation [place] (NSTEMI): Code(s): I21.4 - Non-ST elevation (NSTEMI) myocardial infarction Category: Medical (3) Cirrhosis of liver: Code(s): K74.60 - Unspecified cirrhosis of liver Category: Medical Qualifiers: Ascites presence: without ascites Hepatic cirrhosis type: unspecified hepatic cirrhosis Qualified Code(s): K74.60 - Unspecified cirrhosis of liver (4) Thrombocytopenia: Code(s): D69.6 - Thrombocytopenia, unspecified Category: Medical Plan Most recent cardiac catheterization data reviewed from 08/2023. Proximal LAD with 95% stenosis status post drug-eluting stent. Patent stent in the circumflex. Mid RCA with 60% stenosis. Continue long-term aspirin. As there is concern for hematuria, we can stop the Brilinta and rather use Plavix for the next 3 months and stop. However, if bleeding worsens, we can stop the Plavix completely and just keep her on aspirin only. Continue beta-blockers. She is on statins but there is a question of statin induced rhabdomyolysis in the past. However, the recent CK level is completely normal. Otherwise, PCSK9 inhibitors but in the past, she refused them. Last LDL cholesterol 62 mg/dL. Triglycerides 70 mg/dL. With regard to the question of cirrhosis, [facility] [place] scan had shown cirrhosis with splenomegaly. Hepatitis panel was apparently negative. LFTs were elevated. Question of nonalcoholic fatty liver disease. She can follow up with GI. With regard platelet count, last level is 85. Could be related to liver disease but not clear. Prior to this, 138. Will need to be followed. It seems that she also sees Hematology. Medications: New clopidogrel (Plavix) 75 mg PO DAILY 90 tabs 0RF Discontinued ticagrelor (Brilinta) Discontinued Reason: Doctor's Order 90 mg PO BID 90 days 180 tabs 3RF Coding Level of Care Code Est Pt Level 4 (72342) Diagnoses Atherosclerotic cardiovascular disease I25.10 Non-ST elevation OK (NSTEMI) I21.4 Cirrhosis of liver without ascites, unspecified hepatic cirrhosis type K74.60 Ascites presence: without ascites Hepatic cirrhosis type: unspecified hepatic cirrhosis Thrombocytopenia D69.6
== END 2024-04-13 10:22 | disposition home or self-care (01) ==
LOC: HO.HCS 09:53
PROVIDERS: PCP Physician Assistant; Visit Provider Internal Medicine
DX: I25.10 Atherosclerotic heart disease of native coronary artery without angina pectoris (principal); I21.4 Non-ST elevation (NSTEMI) myocardial infarction; K74.60 Unspecified cirrhosis of liver; D69.6 Thrombocytopenia, unspecified
CPT/HCPCS: 99214

== ENCOUNTER 2024-04-17 11:23 | Outpatient (AMB) | payer SELFPAY ==
[2024-04-17 11:33] VITALS: BP 132/78; PULSE 102; O2SAT 100; BMI 33.8
--- NOTE | 2024-04-17 11:33 | A.OFFVIS_ITS ---
Vital Signs 04/17/24 11:33 Height 5 ft Weight 172 lb 13.478 oz BMI 33.8 BP 132/78 Blood Pressure Location Lt brachial Position Sitting Pulse 102 H Pulse Source Pulse Oximeter Pulse Oximetry (%) 100 Oxygen Delivery Method Room Air Intake Visit Reasons: follow up Intake Note: Patient presents today for follow up on positive CASA and lab review. She was last seen in the office on 03/16/24. Allergies peach [PEACH] Allergy (Intermediate, Verified 04/17/24 15:18) DIFFICULTY BREATHING Medication List - Last Reconciled 04/17/24 by Kailey Rodríguez MD albuterol sulfate 90 mcg/actuation 2 puffs inhalation Q4-6H PRN ascorbic acid (vitamin C) 1 g PO DAILY aspirin (Adult Low Dose Aspirin) 81 mg PO DAILY 90 days atorvastatin 40 mg PO BEDTIME clopidogrel (Plavix) 75 mg PO DAILY ferrous sulfate 325 mg PO DAILY folic acid 1 mg PO DAILY hydroxychloroquine (Plaquenil) 200 mg PO BID metoprolol tartrate 25 mg PO BID 90 days vitamin A palmitate 10,000 units PO DAILY HPI Comments Details: Patient is a 68-year-old female with hyperlipidemia, hypertension complicated by coronary artery disease status post circumflex stenting x2 (2020, 09/2023) who presents for follow of positive CASA in the setting of anemia and thrombocytopenia Interval History: Patient last seen 03/16/2024 with me. At that time she was establishing care for the management of anemia and thrombocytopenia in the setting of positive CASA. Her history and examination was not consistent with lupus. Her CONOR panel was also negative. However given her autoimmune hemolytic anemia and thrombocyto penia there was concern that she may have lupus Today patient states she is overall doing well. Follow up with Hematology last week. Hematology recommended iron infusions. She is also following up with urology re a periurethral mass. Plan is to get biopsy May 02. 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 Mother No problems noted. Social History Household Members: None Housing: Apartment Do you presently have visiting nurse or other home services: No Alcohol intake: current Alcohol intake frequency: holidays/special occasions only Patient Tobacco Use Status: Never used Tobacco e-Cigarette/Vaping Use: Never Used Second Hand Smoke Exposure: No service: No Current occupational status: employed Current occupation: [employer] Current occupational exposures/hazards: No Cognitive needs: No Hearing needs: No Vision needs: No Review of Systems Const Details: Review of Systems Constitutional: Denies fever, chills, weight loss ENT: Denies vision changes, eye pain or eye redness, dental caries, dry mouth GI: Denies nausea, vomiting, diarrhea, abdominal pain, change in BM Pulm: Denies SOB, CERDA, hemoptysis, wheezing Cards: Denies chest pain, palpitations Skin: Denies Raynaud's, rash, nail changes, photosensitivity, SUBCONTRACT ADMINISTRATOR: Denies headaches, weakness, paresthesias, recurrent falls MSK: as per HPI All other systems reviewed and are unremarkable except noted above Physical Exam Vital Signs: Last Vital Signs Pulse 102 H 04/17/24 11:33 BP 132/78 04/17/24 11:33 Pulse Ox 100 04/17/24 11:33 Oxygen Delivery Method Room Air 04/17/24 11:33 BMI result Body Mass Index 33.8 Physical Examination CONSTITUITIONAL Patient alert and cooperative. Well appearing and in no apparent painful distress HEENT Conjunctiva and sclera clear. ?Pupils equal round and reactive to light. ?Pale mucous membranes CHEST/RESPIRATORY SYSTEM Normal respiratory effort and able to speak in complete sentences. ?Clear to auscultation bilaterally. ?No crackles, rales, rhonchi, wheezes heard. CARDIAC SYSTEM Regular rate and rhythm. ?S1 and S2 heard no murmurs. ?Radial pulses intact bilaterally MSK Hands: ?Good frame hand strength bilaterally - 5/5. ?No deformities noted. ?No synovitis noted to the MCPs, PIPs or DIPs. ?No tenderness to palpation of these joints. Wrists: ?Full range of motion at the wrists without pain. ?No tenderness to palpation or synovitis noted to the wrists. Elbows: Full range of motion without pain. No tenderness, weakness, swelling, increased warmth or erythema. Shoulders: Full range of motion without pain. No tenderness, weakness, swelling, increased warmth or erythema. Hips: Full range of motion without pain. Hip bursa: No tenderness to palpation Knees: ?Full range of motion. ?No tenderness, swelling, increased warmth or erythema.?No effusion or crepitations Ankles: Full range of motion. ?No tenderness, swelling, increased warmth or erythema.? Feet: ?Negative squeeze test. ?No tenderness to palpation or swelling of the MTPs. Tender points:??No tenderness to palpation of the neck, shoulders, chest, elbows, hips, buttocks or knees. SKIN Skin intact without rashes. 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 Also given her age it is very uncommon for lupus to be diagnosed for the 1st time at 68. It is really a diagnosis of childbearing age. She has follow up with Nephrology. Hopefully they will be able to biopsy her kidneys. Discussed the case with Dr. Artis she will review make recommendations Plan - Hold plaquenil for [facility] May 2024 after biopsy (2) Positive CASA (antinuclear antibody): Code(s): R76.8 - Other specified abnormal immunological findings in serum Category: Medical Plan: #Positive CASA Positive CASA with negative CONOR panel. Repeat CASA is now negative Her smooth muscle was positive which could mean she may have an autoimmune hepatitis and this would explain her CASA. She does have some liver fibrosis noted on liver elastography 12/22/2023. Plan - Await renal evaluation for possible biopsy - Follow up May 2024 (3) Thrombocytopenia: Code(s): D69.6 - Thrombocytopenia, unspecified Category: Medical Plan: . (4) Proteinuria: Code(s): R80.9 - Proteinuria, unspecified Category: Medical Qualifiers: Proteinuria type: unspecified Qualified Code(s): R80.9 - Proteinuria, unspecified Plan: #Proteinuria Patient with significant proteinuria Referred to renal Has appointment this afternoon We will follow up Plan I spent 55 minutes reviewing the record and labs, seeing the patient, discussing the treatment plan, contacting Dr. Artis to discuss the case and documenting in the medical record ? 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
== END 2024-04-17 12:06 | disposition home or self-care (01) ==
PROVIDERS: PCP Physician Assistant; Visit Provider Student in an Organized Health Care Education/Training Program
DX: D59.19 Other autoimmune hemolytic anemia (principal); R76.8 Other specified abnormal immunological findings in serum; D69.6 Thrombocytopenia, unspecified; R80.9 Proteinuria, unspecified
CPT/HCPCS: 99215; 99417; G2211

== ENCOUNTER → 2024-04-17 11:23 | Outpatient (BNVA) | payer OTHER, SELFPAY | PROVIDERS: PCP Physician Assistant; Visit Provider Student in an Organized Health Care Education/Training Program | DX: R80.9 Proteinuria, unspecified (principal); D59.19 Other autoimmune hemolytic anemia; R76.8 Other specified abnormal immunological findings in serum; D69.6 Thrombocytopenia, unspecified | CPT/HCPCS: 99212 ==

== ENCOUNTER 2024-04-17 15:08 | Outpatient (AMB) | payer OTHER, SELFPAY ==
--- NOTE | 2024-04-17 15:15 | HO.NEPHOV ---
Vital Signs 04/17/24 15:18 Height 5 ft Weight 172 lb BMI 33.6 BP 122/70 Blood Pressure Location Lt brachial Position Sitting Pulse 85 Pulse Source Pulse Oximeter Pulse Oximetry (%) 98 Oxygen Delivery Method Room Air Intake Visit Reasons: Proteinuria/ Conf Clinical Data Abstractor Required: No Accompanied by: Self / Same As Patient Allergies peach [PEACH] Allergy (Intermediate, Verified 04/17/24 15:18) DIFFICULTY BREATHING HPI Comments Details: 68-year-old female with H/O coronary artery disease status post circumflex stenting x2 (2020, 09/2023) who also has hypertension as well as elevated CASA presented for evaluation of proteinuria in the setting of anemia and thrombocytopenia. She has a diagnosis of fatty liver disease and cirrhosis , She had liver elastography 12/2023 which confirmed cirrhosis. She has H/O anemia and was thought to be hemolytic and has seen Therapy Administrative Assistant. Her last scan showed an ill defined soft tissue density adjacent to left renal pelvis with narrowing of left UPJ. Transitional cancer is in the differential. Urology has seen her. Right kidney showed cortical thinning. There were shotty non pathologically enlarged lei aortic and mesenteric lymph nodes with mild splenomegaly. She denies rashes, photosensitivity, alopecia, oral/nasal ulcers, sicca symptoms, lymphadenopathy, chest pain/shortness of breath, inflammatory type joint pain, foamy urine, lower extremity edema, muscle weakness, Raynaud's, seizure, CVA, history of VTE including PE or DVTs. She has been having CKD but her renal functions has been fairly stable. She has been on Brillinta which has been changed to Plavix for 3 more months. 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 Mother No problems noted. Social History Household Members: None Housing: Apartment Do you presently have visiting nurse or other home services: No Alcohol intake: current Alcohol intake frequency: holidays/special occasions only Patient Tobacco Use Status: Never used Tobacco e-Cigarette/Vaping Use: Never Used Second Hand Smoke Exposure: No service: No Current occupational status: employed Current occupation: [employer] Current occupational exposures/hazards: No Cognitive needs: No Hearing needs: No Vision needs: No Review of Systems Const All systems reviewed & are unremarkable except as noted in HPI and below Physical Exam Vital Signs: Last Vital Signs Pulse 85 04/17/24 15:18 BP 122/70 04/17/24 15:18 Pulse Ox 98 04/17/24 15:18 Oxygen Delivery Method Room Air 04/17/24 15:18 BMI result Body Mass Index 33.6 Const General: comfortable and no acute distress Orientation/consciousness: patient oriented x3 HEENT Head: Yes normocephalic Mouth: Normal oral and palatal mucosa present Eyes EOM: EOMs intact bilaterally Neck Neck: Yes supple Resp Auscultation: clear to auscultation bilaterally Cardio Jugular venous distension: no JVD Rate: regular rate GI Palpation (GI): Soft to palpation Auscultation: normal bowel sounds General: Yes no CVA tenderness Back/Spine/Pelvis Back: no CVA tenderness Skin General skin exam: no rashes or lesions noted Neuro General: patient oriented x3 and moves all extremities Extrem General: Yes no pedal edema Results Reviewed Nephrology Results: Hgb 10.5 g/dl (12.0-16.0) L 04/13/24 WBC 8.6 X10*3/uL (4.8-10.8) 04/13/24 Plt Count TNP 04/13/24 Sodium 140 mmol/L (135-145) 04/13/24 Potassium 4.4 mmol/L (3.3-5.1) 04/13/24 Chloride 112 mmol/L (96-108) H 04/13/24 Carbon Dioxide 22 mmol/L (22-29) 04/13/24 BUN 19 mg/dL (9-16) H 04/13/24 Creatinine 1.23 mg/dL (0.5-1.4) 04/13/24 Calcium 9.1 mg/dL (8.4-10.2) 04/13/24 Urine Creatinine 112.68 mg/dL 03/17/24 Protein/Creatinin Ratio 1358 mg/g creat (24-184) H 03/17/24 Assessment & Plan Assessment & Plan (1) Proteinuria: Code(s): R80.9 - Proteinuria, unspecified Category: Medical Qualifiers: Proteinuria type: unspecified Qualified Code(s): R80.9 - Proteinuria, unspecified (2) 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 She has CKD 3 likely from vascular disease. I have started her on ACEI and has ordered F/U labs in 6 weeks and in 3 months. If her renal function show changes or her proteinuria worsens, inspite of maximizing ACEI, I shall do a renal biopsy sooner than later. Otherwise, I plan to do renal biopsy after discontinuation of Plavix, to avoid stent thrombosis. She will be a candidate for SGLt2i. Urology is closely following her UPJ lesion. All these have been discussed in detail. F/U labs ordered including lupus anticoagulant. Answered all questions. F/U given Orders: Orders Blood Urea Nitrogen 3 Months R80.9 - Proteinuria, unspecified Protein Creatinine Ratio, Ur 3 Months R80.9 - Proteinuria, unspecified Lupus Anticoagulant Panel 6 Weeks D59.19 - Other autoimmune hemolytic anemia, R80.9 - Proteinuria, unspecified Creatinine 6 Weeks R80.9 - Proteinuria, unspecified Blood Urea Nitrogen 6 Weeks R80.9 - Proteinuria, unspecified Electrolytes 6 Weeks R80.9 - Proteinuria, unspecified Protein Creatinine Ratio, Ur 6 Weeks R80.9 - Proteinuria, unspecified Creatinine 3 Months R80.9 - Proteinuria, unspecified Electrolytes 3 Months R80.9 - Proteinuria, unspecified Medications: New lisinopril 2.5 mg PO DAILY 30 tabs 3RF Coding Level of Care Code New Pt Level 4 (57906) Diagnoses Proteinuria, unspecified type R80.9 Proteinuria type: unspecified 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
[2024-04-17 15:18] VITALS: BP 122/70; PULSE 85; O2SAT 98; BMI 33.6
== END 2024-04-17 15:45 | disposition home or self-care (01) ==
PROVIDERS: PCP Physician Assistant; Referring Provider Student in an Organized Health Care Education/Training Program; Visit Provider Internal Medicine Nephrology
DX: R80.9 Proteinuria, unspecified (principal); D59.19 Other autoimmune hemolytic anemia
CPT/HCPCS: 99204

== ENCOUNTER 2024-04-24 06:19 | Outpatient (REF) | payer SELFPAY ==
[2024-04-24 07:03] LABS: Blood Urea Nitrogen 16 mg/dL (9-16); Estimated Glomerular Filt Rate 46
== END 2024-04-24 06:20 | disposition home or self-care (01) ==
LOC: HO.LAB 06:19
PROVIDERS: PCP Physician Assistant; Visit Provider Urology
DX: R31.9 Hematuria, unspecified (principal); N28.89 Other specified disorders of kidney and ureter; R93.429 Abnormal radiologic findings on diagnostic imaging of unspecified kidney; N39.41 Urge incontinence; N20.0 Calculus of kidney
CPT/HCPCS: 36415; 82565; 84520

== ENCOUNTER 2024-05-14 20:54 | Emergency (ER) | payer SELFPAY ==
--- NOTE | 2024-05-14 | ECG_ITS ---
Test Reason : FALL Blood Pressure : / mmHG Vent. Rate : 097 BPM Atrial Rate : 097 BPM P-R Int : 212 ms QRS Dur : 128 ms QT Int : 384 ms P-R-T Axes : 032 -16 018 degrees QTc Int : 487 ms Sinus rhythm with 1st degree A-V block Right bundle branch block Abnormal ECG When compared with ECG of 02-SEP-2022 14:15, No significant change was found Referred By: Generic ED Physician Electronically Signed By:BETH COLEY
--- NOTE | ~2024-05-14 | XR_ITS ---
CLINICAL HISTORY: pain s p fall 3 view left humerus Comparison: None Findings: No acute fractures or dislocations. Left humeral head is appropriately positioned with respect to the left glenoid. Small linear focus of subsegmental atelectasis versus scarring present at the left lung base. IMPRESSION: 1. Acute fracture or dislocation injury identified at the left humerus. This document has been electronically signed by: Claus Link MD on 05/14/2024 22:54:37
--- NOTE | ~2024-05-14 | XR_ITS ---
CLINICAL HISTORY: pain s p fall 3 views right hand Comparison: None Findings: No acute fractures or dislocations. Vascular calcifications are present. No radiopaque foreign body. Impression: 1. No acute fracture or dislocation injury identified at the right hand. This document has been electronically signed by: Claus Link MD on 05/14/2024 23:04:41
--- NOTE | ~2024-05-14 | CT_ITS ---
CLINICAL HISTORY: fall CT head without contrast Comparison: MR/REG/SR - MR HEAD/BRAIN WO CON - 09/03/22 19:[address]/REG/SR - CT HEAD/BRAIN WO IV CON - 09/02/22 14:30 EDT Findings: No intracranial mass, midline shift, hydrocephalus, or acute hemorrhage. There is generalized cerebral volume loss. [id number] nonspecific periventricular and subcortical white matter changes are identified, which may be seen in the setting of chronic small vessel ischemic disease. Minimal mucosal thickening present at the right maxillary sinus. The remainder of the paranasal sinuses and bilateral mastoid air cells appear clear. There is rightward deviation of the nasal septum. No acute skull fracture. Impression: 1. No acute intracranial abnormality. No acute intracranial hemorrhage. This document has been electronically signed by: Claus Link MD on 05/14/2024 22:59:30
--- NOTE | ~2024-05-14 | XR_ITS ---
CLINICAL HISTORY: pain s p fall 2 view left forearm Comparison: None Findings: No acute fractures or dislocations. No radiopaque foreign body. Vascular calcifications are present. Possible left elbow effusion. IMPRESSION: 1. No acute fracture or dislocation injury identified at the left forearm. 2. Possible left elbow effusion. This document has been electronically signed by: Claus Link MD on 05/14/2024 23:11:15
--- NOTE | ~2024-05-14 | CT_ITS ---
CLINICAL HISTORY: fall CT cervical spine without contrast Comparison: None Findings: The visualized portions of the bilateral lung apices appear clear. There is mild reversal of the normal cervical lordosis. No significant cervical spondylolisthesis appreciated. Moderate degenerative endplate changes are present at the cervical spine inferiorly. Posterior disc osteophyte complex visualized at C5-C6. There is associated central canal stenosis at this level. No acute fractures or dislocations. Impression: 1. Mild reversal of the normal cervical lordosis. This finding is nonspecific and may be positional and/or related to muscle spasm. No acute fracture or dislocation injury identified at the cervical spine. This document has been electronically signed by: Claus Link MD on 05/14/2024 23:09:20
--- NOTE | ~2024-05-14 | CT_ITS ---
CLINICAL HISTORY: occult fx Left elbow CT without contrast. Comparison: Comparison is made to left forearm radiograph examination dated 05/14/2024. Findings: No acute fracture or dislocation injury identified. Possible minimal left elbow effusion present. No radiopaque foreign body. Impression: 1. No acute fracture or dislocation injury identified at the left elbow. This document has been electronically signed by: Claus Link MD on 05/15/2024 02:52:13
[2024-05-14 21:28] VITALS: BP 165/78; PULSE 102; RESP 18; TEMP 37.2; O2SAT 100; BMI 36.6
[2024-05-14 22:07] LABS: SCAN SMEAR FLAG 1
[2024-05-14 22:09] LABS: PLT CLUMP 1
[2024-05-14 22:18] LABS: Basophils Absolute Auto 0.1 X10*3/uL (0.0-0.2); Imm Gran Abs Auto 0.05 X10*3/uL (0.00-0.03); Mean Corpuscular Hemoglobin 27.2 pg (27.0-33.0); Monocytes Absolute Auto 0.6 X10*3/uL (0.1-1.2)
[2024-05-14 22:19] LABS: Alanine Aminotransferase 37 U/L (0-31); Albumin Level 2.6 g/dL (3.5-5.0); Alkaline Phosphatase 98 U/L (39-117); Anion Gap 10 (12-20); Aspartate Amino Transferase 67 U/L (5-31); Bilirubin Total 0.4 mg/dL (0.0-1.0); Blood Urea Nitrogen 18 mg/dL (9-16); Carbon Dioxide 19 mmol/L (22-29); Chloride 113 mmol/L (96-108); Creatinine Clr Calc Pharmacy 47.5; Estimated Glomerular Filt Rate 49; Glucose Random 192 mg/dL (60-115); Potassium 4.3 mmol/L (3.3-5.1); Sodium 138 mmol/L (135-145); Total Protein 8.4 g/dL (6.5-8.0)
[2024-05-14 22:20] LABS: Basophils Percent Auto 1.1 % (0-2); Eosinophils Absolute Auto 0.2 X10*3/uL (0.0-0.4); Eosinophils Percent Auto 3.9 % (0-4); Hematocrit 25.8 % (37.0-47.0); Hemoglobin 8.1 g/dl (12.0-16.0); Imm Gran Pct Auto 0.9 % (0.0-0.4); Lymphocytes Absolute Auto 1.4 X10*3/uL (1.2-4.9); Lymphocytes Percent Auto 25.1 % (20-40); MANUAL DIFF FLAG SCAN; Mean Corpuscular HGB Conc 31.4 g/dl (31.0-35.0); Mean Corpuscular Volume 86.6 fL (80.0-98.0); Monocytes Percent Auto 10.3 % (2-11); Neutrophils Absolute Auto 3.3 x10*3/uL (2.0-8.3); Neutrophils Percent Auto 58.7 % (45-73); Red Blood Count 2.98 X10*6/uL (4.20-5.50); Red Cell Distribution Width 15.6 % (11.0-16.0)
[2024-05-14 22:26] LABS: Troponin-I High Sensitivity 3.4 ng/L (<3.5-17.0)
[2024-05-14 22:40] LABS: PLT ABN DIST 1
[2024-05-14 22:41] LABS: White Blood Count 5.7 X10*3/uL (4.8-10.8)
[2024-05-14 22:43] LABS: SLIDE REVIEW VERIFIED
[2024-05-15] VITALS (9 sets, daily range): BP systolic 125–168; BP diastolic 55–92; PULSE 85–97; RESP 15–20; TEMP 36.8–36.9; O2SAT 95–100
--- NOTE | 2024-05-15 01:09 | ED.FALL ---
HPI - Fall General Chief Complaint: Fall Stated Complaint: Fall Time Seen by Provider: 05/15/24 01:06 Source: patient Mode of arrival: ambulatory Limitations: no limitations History of Present Illness ED Provider: HPI Narrative: Patient with significant coronary artery disease status post stent placement on 08/31 comes here for fall while she walking outside does not know what happened next thing she noticed that she was on the ground no history of syncope in the past no chest pain no palpitation patient complaining of pain in the left elbow denies any headache no change in mental status Related Data Previous Rx's ?Medication ?Instructions ?Recorded aspirin 81 mg tablet,delayed 81 mg PO DAILY 90 days #90 tabs 04/21/23 release (Adult Low Dose Aspirin) albuterol sulfate 90 mcg/actuation 2 puff inhalation Q4-6H PRN 05/18/23 aerosol inhaler shortness of breath or wheezing #8.5 grams ascorbic acid (vitamin C) 1,000 mg 1 g PO DAILY #90 caps 01/03/24 capsule vitamin A palmitate 3,000 mcg 10,000 unit PO DAILY #90 tabs 01/03/24 (10,000 unit) tablet ferrous sulfate 325 mg (65 mg 325 mg PO DAILY #90 tabs 01/24/24 iron) tablet clopidogrel 75 mg tablet (Plavix) 75 mg PO DAILY #90 tabs 04/13/24 lisinopril 2.5 mg tablet 2.5 mg PO DAILY #30 tabs 04/17/24 Allergies Allergy/AdvReac Type Severity Reaction Status Date / Time peach [PEACH] Allergy Intermediate DIFFICULTY Verified 05/14/24 21:30 BREATHING Review of Systems Review of Systems: Yes all other systems are reviewed and are negative [facility] Past Medical History Medical History 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 Mother No problems noted. Social History Social History Household Members: None Housing: Apartment Do you presently have visiting nurse or other home services: No Alcohol intake: former Patient Tobacco Use Status: Never used Tobacco e-Cigarette/Vaping Use: Never Used Second Hand Smoke Exposure: No service: No Current occupational status: employed Current occupation: [employer] Current occupational exposures/hazards: No Cognitive needs: No Hearing needs: No Vision needs: No Physical Exam Vital Signs: Vital Signs: Last Vital Signs Temp 98.3 F 05/15/24 05:48 Pulse 85 05/15/24 05:48 Resp 15 05/15/24 05:48 BP 127/55 L 05/15/24 05:48 Pulse Ox 96 05/15/24 05:48 O2 Del Method Room Air 05/15/24 05:48 BMI result Body Mass Index 36.6 Appearance: Alert. Oriented X3. No acute distress. Eyes: PERRLA, No Nystagmus ENT: Pharynx normal. Oral Mucosa moist Neck: Normal inspection. Neck supple. CVS: Normal heart rate and rhythm. Pulses normal. Respiratory: No respiratory distress. Equal air entry bilateral, no wheezing/rales/rhonchi Abdomen: Soft and nontender. Bowel sounds are present, no mass palpable, no CVA tenderness Skin: Skin warm and dry. Normal skin color. Normal skin turgor. Extremities: No lower extremity edema. No calf tenderness left elbow infusion with tenderness Neuro: Oriented X 3. No motor deficit. No sensory deficit.No cerebellar signs , cranial nerves II-XII intact Medications Administered Discontinued Medications Generic Name Dose Route Start Last Admin Trade Name Freq PRN Reason Stop Dose Admin Morphine Sulfate 4 mg 05/15/24 01:19 05/15/24 02:21 Morphine Sulfate 2 Mg/Ml Cartridge IVPUSH 05/15/24 01:20 4 mg ONCE ONE Administration Protocol Ondansetron HCl 4 mg 05/15/24 01:19 05/15/24 02:20 Ondansetron Hcl 4 Mg/2 Ml Vial IVPUSH 05/15/24 01:20 4 mg ONCE ONE Administration Medical Decision Making Medical Decision Making MDM Narrative: Patient is status post fall possible near-syncope vitals are stable workup is negative for acute coronary artery disease patient's slightly anemic. Denied any black stools orthostatics are normal workup essentially negative sling was applied to the left arm for left elbow contusion Differential Diagnosis Differential Diagnoses: The differential diagnosis associated with the presentation includes Admission/Observation Consideration of admission/observation: Escalation of care including admission/observation considered Lab Data [facility] Lab Attestation statement: I reviewed the patient's lab results. 05/14/24 21:59 05/14/24 21:59 Labs: Lab Results 05/14/24 05/15/24 Range/Units 21:59 01:39 WBC 5.7 (4.8-10.8) X10*3/uL RBC 2.98 L D (4.20-5.50) X10*6/uL Hgb 8.1 L D (12.0-16.0) g/dl Hct 25.8 L D (37.0-47.0) % MCV 86.6 (80.0-98.0) fL MCH 27.2 (27.0-33.0) pg MCHC 31.4 (31.0-35.0) g/dl RDW 15.6 (11.0-16.0) % Plt Count TNP MPV Not Reportable Immature Gran % (Auto) 0.9 H (0.0-0.4) % Neut % (Auto) 58.7 (45-73) % Lymph % (Auto) 25.1 (20-40) % [place] % (Auto) 10.3 (2-11) % Eos % (Auto) 3.9 (0-4) % Baso % (Auto) 1.1 (0-2) % Lymph # (Auto) 1.4 (1.2-4.9) X10*3/uL [place] # (Auto) 0.6 (0.1-1.2) X10*3/uL Eos # (Auto) 0.2 (0.0-0.4) X10*3/uL Baso # (Auto) 0.1 (0.0-0.2) X10*3/uL Abs Immat Gran (auto) 0.05 H (0.00-0.03) X10*3/uL Absolute Neuts (auto) 3.3 (2.0-8.3) x10*3/uL Absolute Nucleated RBC 0.000 (0.0-0.012) X10*3/uL Nucleated RBC % (auto) 0.0 (0.0-0.2) /100WBC Smear Tech's Comments VERIFIED Sodium 138 (135-145) mmol/L Potassium 4.3 (3.3-5.1) mmol/L Chloride 113 H (96-108) mmol/L Carbon Dioxide 19 L (22-29) mmol/L Anion Gap 10 L (12-20) BUN 18 H (9-16) mg/dL Creatinine 1.11 (0.5-1.4) mg/dL Estim Creat Clear Calc 47.5 Estimated GFR 49 Random Glucose 192 H (60-115) mg/dL Calcium 8.0 L D (8.4-10.2) mg/dL Total Bilirubin 0.4 (0.0-1.0) mg/dL AST 67 H (5-31) U/L ALT 37 H (0-31) U/L Alkaline Phosphatase 98 (39-117) U/L Troponin I High Sens 3.4 D 5.4 D (<3.5-17.0) ng/L Total Protein 8.4 H (6.5-8.0) g/dL Albumin 2.6 L (3.5-5.0) g/dL Independent Interpretation I performed an independent interpretation of an: EKG and CT Scan Interpretation: Normal sinus rhythm heart rate 97 beats per minute right bundle-branch block no acute ST-T changes no acute ischemia Radiology Impression Discussion of test interpretation with radiology: I have reviewed the radiologist's reading. Radiologist Impression: CT scan of the left elbow negative for fracture showed minimal effusion Discharge Plan Discharge Clinical Impression: Fall, Contusion of left elbow Patient Disposition: Home, Self-Care Instructions: Fall Prevention (ED) Additional Instructions: Care as advised Continue take your iron tab You have slight anemia Wear the sling for support to left elbow Follow up with orthopedic for further management if pain continues Tylenol for pain Prescriptions: No Action albuterol sulfate 90 mcg/actuation HFA aerosol inhaler 2 puff inhalation Q4-6H PRN (Reason: shortness of breath or wheezing) Qty: 8.5 3RF vitamin A palmitate 3,000 mcg (10,000 unit) tablet 10,000 unit PO DAILY Qty: 90 1RF ascorbic acid (vitamin C) 1,000 mg capsule 1 g PO DAILY Qty: 90 1RF ferrous sulfate 325 mg (65 mg iron) Tablet 325 mg PO DAILY Qty: 90 3RF aspirin [Adult Low Dose Aspirin] 81 mg tablet,delayed release (DR/EC) 81 mg PO DAILY 90 Days Qty: 90 1RF clopidogrel [Plavix] 75 mg tablet 75 mg PO DAILY Qty: 90 0RF lisinopril 2.5 mg tablet 2.5 mg PO DAILY Qty: 30 3RF Referrals: Taye Hanna MD [Physician] - 1 week Interventions: ED Discharge Assessment Last Done: 05/15/24 05:48 Discharge Date/Time: 05/15/24 05:55 Print Language: Kazakh
[2024-05-15 02:04] LABS: Troponin-I High Sensitivity 5.4 ng/L (<3.5-17.0)
[2024-05-15] MEDS: ondansetron HCL 4 MG/2 ML VIAL IVPUSH (02:20)
[2024-05-15] MEDS: Morphine Sulfate 2 MG/ML CARTRIDGE 4 MG IVPUSH (02:21)
== END 2024-05-15 05:55 | disposition home or self-care (01) ==
PROVIDERS: Emergency Provider Internal Medicine; PCP Physician Assistant
DX: S50.02XA Contusion of left elbow, initial encounter (principal); W18.30XA Fall on same level, unspecified, initial encounter; E78.5 Hyperlipidemia, unspecified; E11.9 Type 2 diabetes mellitus without complications; D64.9 Anemia, unspecified; J45.909 Unspecified asthma, uncomplicated; Z79.899 Other long term (current) drug therapy; Z79.82 Long term (current) use of aspirin; Y93.89 Activity, other specified; Y92.480 Sidewalk as the place of occurrence of the external cause; Y99.9 Unspecified external cause status
CPT/HCPCS: 36415; 70450; 72125; 73060; 73090; 73130; 73200; 80053; 84484; 85025; 93005; 96374; 96375; 99284; 99285; J2270; J2405

== ENCOUNTER → 2024-05-14 21:49 | Outpatient (BNV) | payer SELFPAY | PROVIDERS: Emergency Provider Internal Medicine; PCP Physician Assistant; Visit Provider Internal Medicine | DX: I45.10 Unspecified right bundle-branch block (principal); R94.31 Abnormal electrocardiogram [ECG] [EKG]; I44.0 Atrioventricular block, first degree | CPT/HCPCS: 93010 ==

== ENCOUNTER → 2024-05-14 22:20 | Outpatient (BNV) | payer MEDICARE, OTHER, SELFPAY | PROVIDERS: PCP Physician Assistant; Visit Provider Radiology Diagnostic Radiology | DX: S19.9XXA Unspecified injury of neck, initial encounter (principal); S09.90XA Unspecified injury of head, initial encounter; M79.641 Pain in right hand; M79.602 Pain in left arm; M25.522 Pain in left elbow | CPT/HCPCS: 70450; 72125; 73060; 73090; 73130 ==

== ENCOUNTER → 2024-05-15 01:17 | Outpatient (BNV) | payer SELFPAY | PROVIDERS: Emergency Provider Internal Medicine; PCP Physician Assistant; Visit Provider Radiology Diagnostic Radiology | DX: M25.522 Pain in left elbow (principal) | CPT/HCPCS: 73200 ==

== ENCOUNTER 2024-07-07 23:16 | Emergency (ER) | payer MEDICARE, SELFPAY ==
--- NOTE | ~2024-07-07 | XR_ITS ---
CLINICAL HISTORY: fall 3 view, pelvis and right hip Comparison: None Findings: No acute fracture or dislocation. Mild bilateral hip osteoarthritis. The soft tissues are unremarkable. IMPRESSION: No acute findings. This document has been electronically signed by: Neetu Gamboa MD on 07/08/2024 00:11:36
[2024-07-07 23:21] VITALS: BP 153/78; PULSE 90; RESP 17; TEMP 36.9; O2SAT 100; BMI 34.4
--- NOTE | 2024-07-08 02:16 | PC.NURSE ---
Pt a&ox4, no signs of distress. Pt reports about a wk ago she fell outside while getting out of a car, slipped on ice Pt reports she is on blood thinners, denies head strike Pt reports 9/10 right hip pain, ambulates with a slow steady gait Plan of care ongoing.
--- NOTE | 2024-07-08 02:33 | ED.GENADULT ---
HPI - General Adult General Chief complaint: Fall Stated complaint: right hip pain, fell on ice, nauseous Time Seen by Provider: 07/08/24 02:33 Source: patient Limitations: no limitations History of Present Illness ED Provider: Sara Dixon PA-C HPI narrative: 68-year-old female with a history of morbid obesity, kidney stones, coronary artery disease, hyperlipidemia, hypertension, prediabetes, cirrhosis, anemia, gait instability, who presents with right hip pain after a fall that occurred 5 days ago. Patient states she slipped and fell on ice landing on her side. Patient did not hit her head, there was no loss consciousness. Patient states her pain has not improved, she has been ambulatory since the fall. She does admit that she has not taken any pain medication to manage her symptoms. Related Data Previous Rx's ?Medication ?Instructions ?Recorded aspirin 81 mg tablet,delayed 81 mg PO DAILY 90 days #90 tabs 04/21/23 release (Adult Low Dose Aspirin) albuterol sulfate 90 mcg/actuation 2 puff inhalation Q4-6H PRN 05/18/23 aerosol inhaler shortness of breath or wheezing #8.5 grams ascorbic acid (vitamin C) 1,000 mg 1 g PO DAILY #90 caps 01/03/24 capsule vitamin A palmitate 3,000 mcg 10,000 unit PO DAILY #90 tabs 01/03/24 (10,000 unit) tablet ferrous sulfate 325 mg (65 mg 325 mg PO DAILY #90 tabs 01/24/24 iron) tablet clopidogrel 75 mg tablet (Plavix) 75 mg PO DAILY #90 tabs 04/13/24 lisinopril 2.5 mg tablet 2.5 mg PO DAILY #30 tabs 04/17/24 methocarbamol 750 mg tablet 750 mg PO Q8H PRN pain, moderate 07/08/24 #10 tabs Allergies Allergy/AdvReac Type Severity Reaction Status Date / Time peach [PEACH] Allergy Intermediate DIFFICULTY Verified 07/07/24 23:24 BREATHING Review of Systems Review of Systems: Yes all other systems are reviewed and are negative Constitutional: Constitutional: Denies fatigue and Denies fever(s) Cardiovascular: Cardiovascular: Denies chest pain and Denies dyspnea Respiratory: Respiratory: Denies dyspnea Gastrointestinal: Gastrointestinal: Denies abdominal pain Musculoskeletal: Musculoskeletal: Denies back pain, Reports arthralgias, Denies joint swelling, Denies numbness and Denies tingling Neurologic: Denies numbness and Denies tingling Endocrine: Endocrine: Denies fatigue [facility] Past Medical History Attestation statement: The following information was validated with the patient. 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 Mother No problems noted. Social History Social History Household Members: None Housing: Apartment Do you presently have visiting nurse or other home services: No Alcohol intake: former Patient Tobacco Use Status: Never used Tobacco Smoked in Last 30 Days: No e-Cigarette/Vaping Use: Never Used Second Hand Smoke Exposure: No Use of substances other than those prescribed or required for medical reasons: No Advance Directives: No Advance Directives Information Provided: Yes Do you have a plan to hurt others: No Plan service: No Current occupational status: employed Current occupation: [employer] Current occupational exposures/hazards: No Cognitive needs: No Hearing needs: No Vision needs: No Physical Exam ED Vital Signs: Vital Signs - 24 hr 07/07/24 23:21 Temperature 98.5 F Pulse Rate 90 Respiratory Rate 17 Blood Pressure 153/78 H Pulse Oximetry 100 Oxygen Delivery Method Room Air BMI result Body Mass Index 34.4 Const Other: Alert Orientation/consciousness: patient oriented x3 Resp Effort & Inspection: normal respiratory effort Cardio Other: Normal peripheral perfusion Skin Other: Warm general rash Neuro Other: Antalgic gait but ambulatory walks with a cane General: patient oriented x3, no focal motor deficits and CN's II-XI intact bilaterally Psych Other: Cooperative Medical Decision Making Medical Decision Making MDM Narrative: 68-year-old female with a history of morbid obesity, kidney stones, coronary artery disease, hyperlipidemia, hypertension, prediabetes, cirrhosis, anemia, gait instability, who presents with right hip pain after a fall that occurred 5 days ago. Patient states she slipped and fell on ice landing on her side. Patient did not hit her head, there was no loss consciousness. Patient states her pain has not improved, she has been ambulatory since the fall. She does admit that she has not taken any pain medication to manage her symptoms. Problem: Obesity and gait instability History: Per patient I have considered the following differential diagnoses: Fracture, dislocation, contusion, sprain Plan: X-ray obtained from triage is negative for fracture, we will send the patient with home care instructions. Hip/pelvis: Findings: No acute fracture or dislocation. Mild bilateral hip osteoarthritis. The soft tissues are unremarkable. IMPRESSION: No acute findings. This document has been electronically signed by: Neetu Gamboa MD on 07/08/2024 00:11:36 Discharge Plan Discharge Clinical Impression: Contusion of hip, right Instructions: Hip Contusion (ED) Additional Instructions: The x-ray of the hip was normal, there was no fracture or dislocation. You have a contusion, or fancy word for bruise. See home care instructions. Ice in the area several times a day we will help alleviate inflammation. You can use [id number] Tylenol 1000 milligrams taken every 8 hours for pain. You can reserve the methocarbamol, this is a muscle relaxant, as needed for severe pain and to use at night for sleep. This medication will cause drowsiness do not drive or operate machinery while taking the medication. Follow up with your primary care provider as needed. Prescriptions: New methocarbamol 750 mg tablet 750 mg PO Q8H PRN (Reason: pain, moderate) Qty: 10 0RF No Action albuterol sulfate 90 mcg/actuation HFA aerosol inhaler 2 puff inhalation Q4-6H PRN (Reason: shortness of breath or wheezing) Qty: 8.5 3RF vitamin A palmitate 3,000 mcg (10,000 unit) tablet 10,000 unit PO DAILY Qty: 90 1RF ascorbic acid (vitamin C) 1,000 mg capsule 1 g PO DAILY Qty: 90 1RF ferrous sulfate 325 mg (65 mg iron) Tablet 325 mg PO DAILY Qty: 90 3RF aspirin [Adult Low Dose Aspirin] 81 mg tablet,delayed release (DR/EC) 81 mg PO DAILY 90 Days Qty: 90 1RF clopidogrel [Plavix] 75 mg tablet 75 mg PO DAILY Qty: 90 0RF lisinopril 2.5 mg tablet 2.5 mg PO DAILY Qty: 30 3RF Print Language: Venezuelan
[2024-07-08 03:10] VITALS: BP 141/59; PULSE 90; RESP 14; TEMP 36.8; O2SAT 97
[2024-07-08 03:25] VITALS: BP 141/59; PULSE 90; RESP 14; TEMP 36.8; O2SAT 97
== END 2024-07-08 03:27 | disposition home or self-care (01) ==
PROVIDERS: Emergency Provider Internal Medicine; PCP Physician Assistant
DX: S70.01XA Contusion of right hip, initial encounter (principal); W00.0XXA Fall on same level due to ice and snow, initial encounter; E11.9 Type 2 diabetes mellitus without complications; I10 Essential (primary) hypertension; E78.5 Hyperlipidemia, unspecified; R26.89 Other abnormalities of gait and mobility; Z79.82 Long term (current) use of aspirin; Z79.899 Other long term (current) drug therapy; E66.9 Obesity, unspecified; Z68.34 Body mass index [BMI] 34.0-34.9, adult; Y93.89 Activity, other specified; Y92.410 Unspecified street and highway as the place of occurrence of the external cause; Y99.9 Unspecified external cause status
CPT/HCPCS: 73502; 99283; 99284

== ENCOUNTER → 2024-07-07 23:56 | Outpatient (BNV) | payer SELFPAY | PROVIDERS: PCP Physician Assistant; Visit Provider Radiology Diagnostic Radiology | DX: S70.01XA Contusion of right hip, initial encounter (principal); W19.XXXA Unspecified fall, initial encounter | CPT/HCPCS: 73502 ==

== ENCOUNTER 2024-08-16 12:45 | Outpatient (AMB) | payer MEDICARE, SELFPAY ==
--- NOTE | 2024-08-16 12:51 | MHC.OFFVIS ---
Vital Signs 08/16/24 12:52 Height 5 ft BMI Reason not done Patient refused/unable BP 110/60 Blood Pressure Location Lt brachial Position Sitting Pulse 68 Pulse Source Pulse Oximeter Intake Visit Reasons: 4m follow up Allergies peach [PEACH] Allergy (Intermediate, Verified 08/01/24 10:40) DIFFICULTY BREATHING Medication List - Last Reconciled 08/16/24 by Reid Oliveira MD albuterol sulfate 90 mcg/actuation 2 puffs inhalation Q4-6H PRN aspirin (Adult Low Dose Aspirin) 81 mg PO DAILY 90 days clopidogrel (Plavix) 75 mg PO DAILY lisinopril 2.5 mg PO DAILY HPI Comments Details: Claudia returns for follow-up regarding coronary artery disease. To recall, in September 2020, she had NSTEMI and underwent circumflex stenting. In 08/2023, again had NSTEMI. She underwent LAD stenting. Overall, no clear-cut cardiac symptoms. In the past, she also had an admission for rhabdomyolysis. Question of statin related but she went back on statins after that anyway and has been doing fine. However, statins not 100 current list and hence not clear what happened. 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 Mother No problems noted. Social History Household Members: None Housing: Apartment Do you presently have visiting nurse or other home services: No Alcohol intake: former Patient Tobacco Use Status: Never used Tobacco e-Cigarette/Vaping Use: Never Used Second Hand Smoke Exposure: No service: No Current occupational status: employed Current occupation: [employer] Current occupational exposures/hazards: No Cognitive needs: No Hearing needs: No Vision needs: No Review of Systems Const Denies weakness ENT Denies dizziness Card Denies chest pain, Denies chest pain with activity, Denies syncope, Denies rapid heart rate, Denies pedal edema, Denies edema, Denies leg edema, Denies lightheadedness, Denies palpitations, Denies dyspnea, Denies dyspnea on exertion and Denies orthopnea Resp Denies cough, Denies dyspnea and Denies dyspnea on exertion GI Denies hematochezia and Denies change in stool character Musc Denies abnormal gait, Denies muscle cramps, Denies muscle weakness, Denies numbness, Denies radiating pain into limb and Denies tingling Neuro Denies abnormal gait, Denies dizziness, Denies syncope, Denies numbness, Denies tingling and Denies weakness Endo Denies palpitations Physical Exam Vital Signs: Last Vital Signs Pulse 68 08/16/24 12:52 BP 110/60 08/16/24 12:52 Const General: comfortable and no acute distress Orientation/consciousness: patient oriented x3 HEENT Other: Unremarkable Head: Yes normal to inspection Neck Neck: Yes normal visual inspection Chest Chest palpation & inspection: normal inspection of the chest Resp Auscultation: clear to auscultation bilaterally Cardio Palpation: normal PMI Heart sounds: S1 normal heart sound present, S2 normal heart sound present, no gallops, no murmurs and no rubs GI Palpation (GI): Soft to palpation Back/Spine/Pelvis Other: unremarkable Skin General skin exam: no rashes or lesions noted Neuro General: patient oriented x3 Extrem General: Yes normal to inspection Psych Mental Status: mental status grossly normal Assessment & Plan Assessment & Plan (1) Atherosclerotic cardiovascular disease: Code(s): I25.10 - Atherosclerotic heart disease of [place] coronary artery without angina pectoris Category: Medical (2) Non-ST elevation [place] (NSTEMI): Code(s): I21.4 - Non-ST elevation (NSTEMI) myocardial infarction Category: Medical (3) Cirrhosis of liver: Code(s): K74.60 - Unspecified cirrhosis of liver Category: Medical Qualifiers: Ascites presence: without ascites Hepatic cirrhosis type: unspecified hepatic cirrhosis Qualified Code(s): K74.60 - Unspecified cirrhosis of liver (4) Thrombocytopenia: Code(s): D69.6 - Thrombocytopenia, unspecified Category: Medical Plan Most recent cardiac catheterization data reviewed from 08/2023. Proximal LAD with 95% stenosis status post drug-eluting stent. Patent stent in the circumflex. Mid RCA with 60% stenosis. Continue long-term aspirin. She was on Brilinta which was then switched to Plavix. We can stop that and just keep her on aspirin Prior note had meds including metoprolol and atorvastatin but not in the current regimen. Hence not clear what change. He is not sure. Otherwise, there is a question of statin induced rhabdomyolysis in the past. She was anyway put back on statins which was in the last med list but not on today's list. She is not sure and may need to call the pharmacy. PCSK9 inhibitors discussed in the past but she did not want to take him. With regard to the question of cirrhosis, [facility] [place] state that CT scan had shown cirrhosis with splenomegaly. Hepatitis panel was apparently negative. LFTs were elevated. Question of nonalcoholic fatty liver disease. She can follow up with GI. Message sent to them to arrange follow-up. Hematology issues followed by Dr. Artis. Orders: Orders Lipid Panel Today E78.5 - Hyperlipidemia, unspecified, I25.10 - Atherosclerotic heart disease of [place] coronary artery without angina pectoris Medications: Discontinued clopidogrel (Plavix) Discontinued Reason: Doctor's Order 75 mg PO DAILY 90 tabs 0RF Coding Level of Care Code Est Pt Level 4 (89367) Complex EM visit Add On G2211 Diagnoses Atherosclerotic cardiovascular disease I25.10 Non-ST elevation [place] (NSTEMI) I21.4 Cirrhosis of liver without ascites, unspecified hepatic cirrhosis type K74.60 Ascites presence: without ascites Hepatic cirrhosis type: unspecified hepatic cirrhosis Thrombocytopenia D69.6
[2024-08-16 12:52] VITALS: BP 110/60; PULSE 68
--- OUTSIDE RECORDS SUMMARY | 2024-08-16 14:41 | XMS_ITS | Clinical Summary ---
[facility] Organization [facility] Address [address] [place] [address] Care Team Providers Care Table Games Supervisor Name Role Phone Ania Browning MD Primary Care Provider Surgical History Surgery Date Site/Laterality Comments CARPAL TUNNEL RELEASE 07/26/2008 PROCEDURE: [place] NEUROPLASTY &/TRANSPOS MEDIAN NRV CARPAL TUNNE CYSTOSCOPY 10/26/2011 PROCEDURE: [place] CYSTOURETHROSCOPY; COMMENT: Dr Sunny Miranda CYSTOSCOPY 03/31/2016 Left PROCEDURE: [place] CYSTOURETHROSCOPY; COMMENT: ureteroscopy, laser lithotripsy, stent placement COLONOSCOPY 08/2008 PROCEDURE: HISTORICAL COLONOSCOPY OTHER SURGICAL HISTORY 09/11/2020 PROCEDURE: [place] PRQ TRLUML CORONARY STENT W/ANGIO ONE ART/BRNCH Medical History Medical History Date Comments Obesity 06/12/2011 DX:Obesity Microalbuminuria 11/01/2018 DX:Microalbumin uria Type 2 diabetes mellitus wit h renal manifestations (CMS/HCC) 12/17/2014 DX:Type 2 diabetes mellitus with renal manifestations (HCC) Lower urinary tract infectious disease 2 DX:Lower urinary tract infectious disease Hydronephrosis, bilateral 09/18/2011 DX:Hyd ronephrosis, bilateral Renal stone 09/18/2011 DX:Renal stone Mild intermittent asthma 10/09/2011 DX:Mild intermittent asthma Dysphagia DX:Dysphagia Chronic ischemic heart disease D X:Chronic ischemic heart disease Status post primary angiopla sty with coronary stent 09/2020 DX:Status post primary angio plasty with coronary stent History of non-ST elevation myocardial infarction (NSTEMI) 09/18/2020 DX:History of non-ST elevati on myocardial infarction (NSTEMI) Family History Relation Name Status Comments Father (Age 67) asthma Maternal Grandfather Maternal Grandmother Mother (Age 76) stroke /af ib/ seizure Paternal Grandfather Paternal Grandmother Sister Alive Social History Tobacco Use Types Packs/Day Years Used Date Smoking Tobacco: Never Smokeless Tobacco: Never Alcohol Use Standard Drinks/Week Comments Yes 0 (1 standard drink = 0.6 oz pur e alcohol) Comments Unknown Sex and Gender Information Value Date Recorded Sex Assigned at Not on file Legal Sex Female 11:25 AM EST Gender Identity Not on file Sexual Orientation Not on file Obstetrics History Last Filed Vital Signs Vital Sign Reading Time Taken Comments Blood Pressure 160/80 01/29/2022 4:47 PM EDT Sitting L Arm Pulse 89 01/29/2022 3:26 PM EDT Temperature - - Respiratory Rate - - Oxygen Saturation - - Inhaled Oxygen Concentration - - Weight 75.8 kg (167 lb 3.2 oz) 01/29/2022 3:26 PM EDT Height 152.4 cm (5') 01/29/2022 3:26 PM EDT Body Mass Index 32.65 01/29/2022 3:26 PM EDT Plan of Treatment Health Maintenance Due Date Last Done Comments Breast Cancer Screening 1955 Diabetes: Annual GFR (Glomerular Filtration Rate) 1956 Diabetes: Annual Foot Exam 1966 Diabetes: Annual Retina Eye Exam 1966 Pneumococcal Vaccine: 50+ Years (1 of 2 - PCV) 07/22/1975 Zoster Vaccines (1 of 2) 2006 RSV Immunization Adult Patients (1 - Risk 60-74 years 1-dose series) 2016 DTaP,Tdap,and Td Vaccines (2 - Td or Tdap) 09/10/2021 09/11/2011 Cholesterol Screening (Lipid Panel) 04/07/2022 Colorectal Cancer Screening: Colonoscopy 04/07/2022 Depression Screening 04/07/2022 Falls Risk Assessment 04/07/2022 Hepatitis C Screening 04/07/2022 Osteoporosis Screening (Bone Density Screening) 04/07/2022 Social Influencers of Health Screening 04/07/2022 Diabetes: Annual Urine Albumin-Creatinine Ratio (uACR) 04/19/2022 Diabetes: Blood Sugar Contro l Test (HGBA1C) 04/19/2022 COVID-19 Vaccine (3 - 2023-2 5 season) 2024 11/21/2020, 10/24/2020 Influenza Vaccine (Season Ended) 2025 HIB Vaccines Aged Out No longer eligi ble based on patient's age to complete this topic HPV Vaccines Aged Out No longer eligi ble based on patient's age to complete this topic Hepatitis A Vaccines Aged Out No long er eligible based on patient's age to complete this topic Hepatitis B Vaccines Aged Out No long er eligible based on patient's age to complete this topic IPV Vaccines Aged Out No longer eligi ble based on patient's age to complete this topic MMR Vaccines Aged Out No longer eligi ble based on patient's age to complete this topic Meningococcal ACWY Vaccine Aged Out N o longer eligible based on patient's age to complete this topic Meningococcal B Vaccine Aged Out No l onger eligible based on patient's age to complete this topic RSV Immunization Patients Under 20 months Aged Out No longer eligible b ased on patient's age to complete this topic Varicella Vaccines Aged Out No longer eligible based on patient's age to complete this topic Advance Directives Documents on File Type Date Recorded Patient Rotary Soil Stabilizer Operator Expl anation Health Care Decision (hx) 03/31/2016 AD CARROLL DIRECTIVE Health Care Decision (hx) 03/31/2016 AD CARROLL DIRECTIVE Health Care Decision (hx) 03/31/2016 AD CARROLL DIRECTIVE Health Care Decision (hx) 03/31/2016 AD CARROLL DIRECTIVE Health Care Decision (hx) 03/31/2016 AD CARROLL DIRECTIVE Care Teams Table Games Supervisor Relationship Specialty Start Date End Date Ania Browning MD PCP - General Internal Medicine 12/02/21
== END 2024-08-16 13:10 | disposition home or self-care (01) ==
LOC: HO.HCS 12:46
PROVIDERS: PCP Physician Assistant; Visit Provider Internal Medicine
DX: I25.10 Atherosclerotic heart disease of native coronary artery without angina pectoris (principal); I21.4 Non-ST elevation (NSTEMI) myocardial infarction; K74.60 Unspecified cirrhosis of liver; D69.6 Thrombocytopenia, unspecified
CPT/HCPCS: 99214; G2211

== ENCOUNTER → 2024-08-16 12:45 | Outpatient (BNVA) | payer MEDICARE, SELFPAY | PROVIDERS: PCP Physician Assistant; Visit Provider Internal Medicine | DX: I25.10 Atherosclerotic heart disease of native coronary artery without angina pectoris (principal); I25.2 Old myocardial infarction; K74.60 Unspecified cirrhosis of liver; D69.6 Thrombocytopenia, unspecified | CPT/HCPCS: 99212 ==

== ENCOUNTER 2024-08-23 12:53 | Outpatient (REF) | payer MEDICARE, SELFPAY ==
--- NOTE | ~2024-08-23 | CT_ITS ---
EXAMINATION: CT ABDOMEN WITHOUT AND WITH CONTRAST CLINICAL INFORMATION: R93.429 COMPARISON: CT urogram 01/04/2024. TECHNIQUE: Contiguous axial thin section helical images of the abdomen were performed before and after the administration of 85 mL of Omnipaque 350 intravenous contrast. The data set was reformatted in the coronal and sagittal planes and reviewed on an independent workstation. This CT examination was performed using dose optimization techniques as appropriate, variously including the following: *Automated exposure control *Adjustment of mA and/or kV according to patient size (this includes techniques or standardized protocols for targeted exams where dose is matched to indication/reason for exam; i.e. extremities or head) *Use of iterative reconstruction technique FINDINGS: LUNG BASES: There is linear type atelectasis both lung bases. There are no effusions. There are no suspicious nodules or consolidations. There is mild cardiac enlargement. There is no pericardial effusion. LIVER, GALLBLADDER, AND BILIARY TREE: Cirrhotic configuration of liver with macro nodularity of the hepatic contour. No suspicious focal lesion. No intra or extra hepatic biliary dilatation. The gallbladder is surgically absent. PANCREAS: Normal without focal lesion. SPLEEN: There is splenomegaly, with the spleen measuring approximately 15.2 cm in AP diameter. ADRENAL GLANDS: Normal. KIDNEYS: RIGHT KIDNEY: The right kidney is atrophic. There is right renal cortical scarring, particularly involving the lower pole. There are no right renal calculi and there is no right hydronephrosis. LEFT KIDNEY: There is compensatory hypertrophy of the left kidney. Within the lateral upper cortex, there is a very subtle hypoattenuating enhancing oval lesion measuring 1.9 x 1.9 x 2.5 cm (series 7, image 78; series 4, image 71). This is a suspicious finding. No additional renal cortical lesions. Within the renal pelvis, there is redemonstration of a staghorn calculus measuring approximately 1.6 x 0.5 x 1.9 cm, with abundant surrounding inflammatory stranding. This has a similar appearance to the prior exam. There is no minimal hydronephrosis, and there is enhancement of the urothelium, likely inflammatory. BOWEL LOOPS: Imaged bowel structures demonstrate mild diverticulosis of the colon, predominantly involving the descending colon. Small bowel is normal. The GE junction, stomach, and duodenum appear normal. LYMPH NODES: None enlarged by size criteria. VASCULAR: Mild to moderate calcific atheromatous disease of the aorta and its branches. There is no aneurysm. OSSEOUS STRUCTURES: No suspicious lytic or blastic bone lesion identified. There is minimal wedging of the inferior endplate of L2, chronic. There are degenerative spinal changes, mild. There is a mild to moderate levoconvex thoracolumbar scoliosis, apex at L2. Scoliosis centered CT/CT abdomen wo/w IV con IMPRESSION: 1. Stable staghorn calculus in the left renal pelvis with surrounding pelvic inflammation, and urothelial thin enhancement. Mild hydronephrosis of the left kidney. 2. Subtle oval hypoattenuating lesion in the mid to upper pole cortex of the left kidney measuring 1.9 x 1.9 x 2.5 cm, new from the prior exam. Neoplasm is not excluded. Correlation with ultrasound recommended. 3. Atrophy of the right kidney. No right hydronephrosis or calculus. 4. Hepatic cirrhosis. Splenomegaly. 5. Mild cardiomegaly. Electronically signed by: Héctor Singh MD 08/23/2024 02:08 PM EDT
[2024-08-23] MEDS: iohexoL 350 MG/ML 100 ML INFUS..BTL IV (13:48)
--- OUTSIDE RECORDS SUMMARY | 2024-08-23 15:19 | XMS_ITS | Clinical Summary ---
[facility] Address [address] [place] [address] Care Team Providers Care Jet Engine Mechanic Name Role Phone Ania Browning MD Primary Care Provider Surgical History Surgery Date Site/Laterality Comments CARPAL TUNNEL RELEASE 07/26/2008 PROCEDURE: [place] NEUROPLASTY &/TRANSPOS MEDIAN NRV CARPAL TUNNE CYSTOSCOPY 10/26/2011 PROCEDURE: [place] CYSTOURETHROSCOPY; COMMENT: Dr Sunny Miranda CYSTOSCOPY 03/31/2016 Left PROCEDURE: [place] CYSTOURETHROSCOPY; COMMENT: ureteroscopy, laser lithotripsy, stent placement COLONOSCOPY 08/2008 PROCEDURE: HISTORICAL COLONOSCOPY OTHER SURGICAL HISTORY 09/11/2020 PROCEDURE: [place] PRQ TRLUML CORONARY STENT W/ANGIO ONE ART/BRNCH Medical History Medical History Date Comments Obesity 06/12/2011 DX:Obesity Microalbuminuria 11/01/2018 DX:Microalbumin uria Type 2 diabetes mellitus wit h renal manifestations (CMS/HCC V24, CMS/HCC V28) 12/17/2014 DX:Type 2 diabetes mellitus with renal [...] Documents on File Type Date Recorded Patient Casing Operator Expl anation Health Care Decision (hx) 03/31/2016 AD CARROLL DIRECTIVE Health Care Decision (hx) 03/31/2016 AD CARROLL DIRECTIVE Health Care Decision (hx) 03/31/2016 AD CARROLL DIRECTIVE Health Care Decision (hx) 03/31/2016 AD CARROLL DIRECTIVE Health Care Decision (hx) 03/31/2016 AD CARROLL DIRECTIVE Care Teams Jet Engine Mechanic Relationship Specialty Start Date End Date Ania Browning MD PCP - General Internal Medicine 12/02/21
== END 2024-08-23 12:54 | disposition home or self-care (01) ==
LOC: HO.CT 12:53
PROVIDERS: PCP Nurse Practitioner Family; Visit Provider Urology
DX: N28.89 Other specified disorders of kidney and ureter (principal); R31.9 Hematuria, unspecified; R93.429 Abnormal radiologic findings on diagnostic imaging of unspecified kidney
CPT/HCPCS: 74170; Q9967

== ENCOUNTER → 2024-08-23 12:55 | Outpatient (BNV) | payer MEDICARE, SELFPAY | PROVIDERS: PCP Nurse Practitioner Family; Visit Provider Radiology Diagnostic Radiology | DX: N26.1 Atrophy of kidney (terminal) (principal); N20.0 Calculus of kidney | CPT/HCPCS: 74170 ==

== ENCOUNTER 2024-09-04 09:53 | Outpatient (AMB) | payer MEDICARE, SELFPAY ==
--- NOTE | 2024-09-04 10:10 | A.OFFVIS_ITS ---
Vital Signs 09/04/24 10:13 Height 5 ft BMI Reason not done Patient refused/unable BP 181/86 H Blood Pressure Location Lt brachial Position Sitting Pulse 89 Intake Visit Reasons: 4 mo f/u r/s 06/05/24 Intake Note: Claudia presents in the office as a 4 month follow up. CC: She states that she is feeling alright - she is tired a lot. She is doing an roberto IV infusion at the moment. [facility] Required: No Allergies peach [PEACH] Allergy (Intermediate, Verified 09/04/24 10:11) DIFFICULTY BREATHING HPI HPI 4 mo f/u r/s 06/05/24: Details: 69 yr old f here for f/u for cirrhosis RECAP She was told at [facility] she had cirrhosis, she was there for nstemi and had stents 08/2023 she had fatigue she has been told she has inflammed kidney from stone and following with DR Davison she had trouble swallowing, losing weight since heart attack but steady now--likes junk food neg cologuard 07/03 colonoscopy aged 51 and was nml labs: UA with large blood, CASA was v high, SMA was 63, IgG was high Hep B,C were negative Ba swallow: 03/02 ?stricture at throacic inlet small hernia gastritis INTERIM: she still has bloody urine output, waiting to see Dr Davison fatigue ongoing no diarrhea, no constipation no rectal bleeding no melena only on baby aspirin now, not on brilinta getting iron infusions GENERAL: The patient is well developed and nontoxic. VITAL SIGNS:see workflow HEENT: Nonicteric sclerae, PERRLA, EOMI. Oropharynx clear. Moist mucous membranes. Conjunctivae appear well perfused. No thyroid mass. CHEST: Chest wall is nontender. HEART: Regular rate and rhythm without murmurs. LUNGS: Clear to auscultation bilaterally. ABDOMEN: Soft, positive bowel sounds, nontender, no organomegaly.no flank tenderness SKIN: No rash, no excessive bruising, petechiae, or purpura. NEUROLOGIC: Cranial nerves II-XII intact without motor/sensory deficit. 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 Mother No problems noted. Social History Household Members: None Housing: Apartment Do you presently have visiting nurse or other home services: No Alcohol intake: former Patient Tobacco Use Status: Never used Tobacco e-Cigarette/Vaping Use: Never Used Second Hand Smoke Exposure: No service: No Current occupational status: employed Current occupation: [employer] Current occupational exposures/hazards: No Cognitive needs: No Hearing needs: No Vision needs: No Physical Exam Vital Signs: Last Vital Signs Pulse 89 09/04/24 10:13 BP 181/86 H 09/04/24 10:13 Assessment & Plan Assessment & Plan (1) Cirrhosis of liver: Code(s): K74.60 - Unspecified cirrhosis of liver Category: Medical Qualifiers: Ascites presence: without ascites Hepatic cirrhosis type: unspecified hepatic cirrhosis Qualified Code(s): K74.60 - Unspecified cirrhosis of liver Plan: as above Orders: Orders Comprehensive Met. Panel 09/04/24 K74.60 - Unspecified cirrhosis of liver, K75.81 - Nonalcoholic steatohepatitis (ESQUIVEL) Immunofixation Pnl, Serum 09/04/24 K74.60 - Unspecified cirrhosis of liver Mitochondrial Antibody 09/04/24 K74.60 - Unspecified cirrhosis of liver Complete Blood Count Auto Diff 09/04/24 K74.60 - Unspecified cirrhosis of liver Protein Electrophoresis, Serum 09/04/24 K74.60 - Unspecified cirrhosis of liver Soluble Liver Ag Autoantibody 09/04/24 K74.60 - Unspecified cirrhosis of liver US biopsy liver 09/04/24 K74.60 - Unspecified cirrhosis of liver Coding Level of Care Code Est Pt Level 4 (19120) Diagnoses Cirrhosis of liver without ascites, unspecified hepatic cirrhosis type K74.60 Ascites presence: without ascites Hepatic cirrhosis type: unspecified hepatic cirrhosis
[2024-09-04 10:13] VITALS: BP 181/86; PULSE 89
--- OUTSIDE RECORDS SUMMARY | 2024-09-04 11:21 | XMS_ITS | Clinical Summary ---
[facility] Organization [facility] Address [address] [place] [address] Care Team Providers Care Catering Assistant Name Role Phone Ania Browning MD Primary Care Provider Surgical History Surgery Date Site/Laterality Comments CARPAL TUNNEL RELEASE 07/26/2008 PROCEDURE: [place] NEUROPLASTY &/TRANSPOS MEDIAN NRV CARPAL TUNNE CYSTOSCOPY 10/26/2011 PROCEDURE: [place] CYSTOURETHROSCOPY; COMMENT: Dr Sunny Miranda CYSTOSCOPY 03/31/2016 Left PROCEDURE: [place] CYSTOURETHROSCOPY; COMMENT: ureteroscopy, laser lithotripsy, stent placement COLONOSCOPY 08/2008 PROCEDURE: HISTORICAL COLONOSCOPY OTHER SURGICAL HISTORY 09/11/2020 PROCEDURE: [place] PRQ TRLUML CORONARY STENT W/ANGIO ONE ART/BRNCH [...] Documents on File Type Date Recorded Patient Chick Room Supervisor Expl anation Health Care Decision (hx) 03/31/2016 AD CARROLL DIRECTIVE Health Care Decision (hx) 03/31/2016 AD CARROLL DIRECTIVE Health Care Decision (hx) 03/31/2016 AD CARROLL DIRECTIVE Health Care Decision (hx) 03/31/2016 AD CARROLL DIRECTIVE Health Care Decision (hx) 03/31/2016 AD CARROLL DIRECTIVE Care Teams Catering Assistant Relationship Specialty Start Date End Date Ania Browning MD PCP - General Internal Medicine 12/02/21
== END 2024-09-04 11:03 | disposition home or self-care (01) ==
LOC: HO.HGI 09:55
PROVIDERS: PCP Nurse Practitioner Family; Visit Provider Internal Medicine Gastroenterology
DX: K74.60 Unspecified cirrhosis of liver (principal)
CPT/HCPCS: 99214

== ENCOUNTER → 2024-09-04 09:53 | Outpatient (BNVA) | payer MEDICARE, SELFPAY | PROVIDERS: PCP Nurse Practitioner Family; Visit Provider Internal Medicine Gastroenterology | DX: K74.60 Unspecified cirrhosis of liver (principal); K75.81 Nonalcoholic steatohepatitis (NASH) | CPT/HCPCS: 99212 ==

== ENCOUNTER 2024-09-19 09:51 | Outpatient (REF) | payer MEDICARE, SELFPAY ==
[2024-09-19 12:00] LABS: Basophils Absolute Auto 0.1 X10*3/uL (0.0-0.2); Basophils Percent Auto 1.4 % (0-2); Eosinophils Absolute Auto 0.2 X10*3/uL (0.0-0.4); Eosinophils Percent Auto 4.3 % (0-4); Hematocrit 37.7 % (37.0-47.0); Hemoglobin 11.7 g/dl (12.0-16.0); Imm Gran Abs Auto 0.02 X10*3/uL (0.00-0.03); Imm Gran Pct Auto 0.4 % (0.0-0.4); Lymphocytes Absolute Auto 1.2 X10*3/uL (1.2-4.9); Lymphocytes Percent Auto 23.5 % (20-40); MANUAL DIFF FLAG SCAN; Mean Corpuscular Hemoglobin 29.4 pg (27.0-33.0); Mean Corpuscular Volume 94.7 fL (80.0-98.0); Monocytes Absolute Auto 0.4 X10*3/uL (0.1-1.2); Monocytes Percent Auto 7.5 % (2-11); Neutrophils Absolute Auto 3.2 x10*3/uL (2.0-8.3); Neutrophils Percent Auto 62.9 % (45-73); PLT CLUMP 1; Red Blood Count 3.98 X10*6/uL (4.20-5.50); Red Cell Distribution Width 19.5 % (11.0-16.0); SCAN SMEAR FLAG 1
[2024-09-19 12:14] LABS: White Blood Count 5.1 X10*3/uL (4.8-10.8)
--- OUTSIDE RECORDS SUMMARY | 2024-09-19 12:14 | XMS_ITS | Clinical Summary ---
Author Organization [facility] Address [address] [place] [address] Care Team Providers Care Line Appliance Assembler Name Role Phone Ania Browning MD Primary Care Provider Surgical History Surgery Date Site/Laterality Comments CARPAL TUNNEL RELEASE 07/26/2008 PROCEDURE: [place] NEUROPLASTY &/TRANSPOS MEDIAN NRV CARPAL TUNNE CYSTOSCOPY 10/26/2011 PROCEDURE: [place] CYSTOURETHROSCOPY; COMMENT: Dr Sunny Miranda CYSTOSCOPY 03/31/2016 Left PROCEDURE: [place] CYSTOURETHROSCOPY; COMMENT: ureteroscopy, laser lithotripsy, stent placement COLONOSCOPY 08/2008 PROCEDURE: HISTORICAL COLONOSCOPY OTHER SURGICAL HISTORY 09/11/2020 PROCEDURE: [place] PRQ TRLUML CORONARY STENT W/ANGIO ONE ART/BRNCH [...] Documents on File Type Date Recorded Patient Biomass Facilitator Expl anation Health Care Decision (hx) 03/31/2016 AD CARROLL DIRECTIVE Health Care Decision (hx) 03/31/2016 AD CARROLL DIRECTIVE Health Care Decision (hx) 03/31/2016 AD CARROLL DIRECTIVE Health Care Decision (hx) 03/31/2016 AD CARROLL DIRECTIVE Health Care Decision (hx) 03/31/2016 AD CARROLL DIRECTIVE Care Teams Line Appliance Assembler Relationship Specialty Start Date End Date Ania Browning MD PCP - General Internal Medicine 12/02/21
[2024-09-19 12:15] LABS: SLIDE REVIEW VERIFIED
[2024-09-19 12:30] LABS: Alanine Aminotransferase 11 U/L (0-31); Albumin Level 2.9 g/dL (3.5-5.0); Alkaline Phosphatase 85 U/L (39-117); Anion Gap 15 (12-20); Aspartate Amino Transferase 42 U/L (5-31); Bilirubin Total 0.7 mg/dL (0.0-1.0); Blood Urea Nitrogen 15 mg/dL (9-16); Calcium 8.7 mg/dL (8.4-10.2); Carbon Dioxide 21 mmol/L (22-29); Chloride 110 mmol/L (96-108); Estimated Glomerular Filt Rate > 60; Glucose Random 77 mg/dL (60-115); Potassium 4.4 mmol/L (3.3-5.1); Sodium 142 mmol/L (135-145); Total Protein 8.6 g/dL (6.5-8.0)
[2024-09-21 08:24] LABS: Prot Elec - Alpha1 0.3 g/dL (0.2-0.3); Prot Elec - Alpha2 0.6 g/dL (0.5-0.9); Prot Elec - Beta 1 0.4 g/dL (0.4-0.6); Prot Elec - Beta 2 0.5 g/dL (0.2-0.5); Prot Elec - Gamma 3.6 g/dL (0.8-1.7); Prot Elec - Total Protein 8.4 g/dL (6.1-8.1)
[2024-09-21 14:08] LABS: Mitochondrial Antibodies NEGATIVE (NEGATIVE)
[2024-09-21 23:09] LABS: IgA 599 mg/dL (70-320); IgG 3896 mg/dL (600-1540); IgM 447 mg/dL (50-300)
[2024-09-24 20:13] LABS: Soluble Liver Ag Autoantibody <20.1 U (0.0-20.0)
== END 2024-09-19 09:52 | disposition home or self-care (01) ==
LOC: HO.LAB 09:51
PROVIDERS: PCP Nurse Practitioner Family; Visit Provider Internal Medicine Gastroenterology
DX: N28.89 Other specified disorders of kidney and ureter (principal); N20.0 Calculus of kidney; R31.9 Hematuria, unspecified; K75.81 Nonalcoholic steatohepatitis (NASH); K74.60 Unspecified cirrhosis of liver
CPT/HCPCS: 36415; 80053; 82784; 83520; 84165; 85025; 86334; 86381

== ENCOUNTER 2024-09-19 09:51 | Outpatient (AMB) | payer MEDICARE, SELFPAY ==
--- NOTE | 2024-09-19 09:51 | MHC.OFFVIS ---
Intake Visit Reasons: CT results/Procedure discussion Intake Note: Patient is present for CT results/procedure discussion Urology Medication:NONE Antibiotic Allergy:NONE Blood Thinner:Aspirin Book Jogger Required: No Allergies peach [PEACH] Allergy (Intermediate, Verified 09/26/24 12:00) DIFFICULTY BREATHING HPI Comments Details: 09/19/24--Claudia is a 69-year-old female with past medical history significant for coronary artery disease she is scheduled for follow-up due to left nephrolithiasis and follow-up abnormal soft tissue changes, possible lesion in the left kidney. The patient had a CT abdomen with and without IV contrast. Findings consistent with left staghorn calculus and 1.9 cm enhancing suspicious lesion. I have discussed treatment options to consider including left ESWL for the staghorn calculus. Further evaluation of lesion with MRI. Right kidney is atrophic. She complains of persistent blood in the urine. Plan will be for cystoscopy bilateral retrogrades, ureteroscopy. Possible left ureteral stent. Patient to stop aspirin 10-14 days prior to procedure. MRI for further evaluation of suspicious mass left kidney 03/29/24--Claudia is here for fu. She states she continues workup with Hematology and is being referred to Nephrology due to proteinuria. UA - persistent hematuria. She denies dysuria. Will send urine for FISH, discussed further evaluation with cytoscopy bladder biopsies, bilateral retrogrades, possible left ureteroscopy, will get a CT abd/pelvis as well to reevaluate finding on left kidney. 01/05/24--Claudia is a 68-year-old female who was initially evaluated as a New patient on 11/18/23. Here for office cystoscopy. The pt was admitted to [facility] in August for an AL. She states that 2 cardiac stents were placed. She states she had one cardiac stent placed in 2020. She was restarted on Brilinta. She states that she also has low platelets and is scheduled to see Hematology. During hospitalizaion, at [facility] she was told she had kidney stones. She had CT imaging that noted a 1.7 linear calcification of the left renal pelvis and soft tissue changes which may be inflammatory versus neoplastic changes. The patient has had a history of kidney stones and has seen Dr. Salcido in the past. Office cystoscopy- mild erythematous changes. CTAP- 01/04/24--KIDNEYS AND URETERS: There is right renal cortical thinning. The left kidney is normal in size, shape, and attenuation. No hydronephrosis, hydroureter, or calculi seen. There is ill-defined circumferential soft tissue opacity adjacent to the left renal pelvis and the proximal left The left ureteropelvic junction appears narrowed. 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 Mother No problems noted. Social History Household Members: None Housing: Apartment Do you presently have visiting nurse or other home services: No Alcohol intake: former Patient Tobacco Use Status: Never used Tobacco e-Cigarette/Vaping Use: Never Used Second Hand Smoke Exposure: No Advance Directives: No Advance Directives Information Provided: Yes service: No Current occupational status: employed Current occupation: [employer] Current occupational exposures/hazards: No Cognitive needs: No Hearing needs: No Vision needs: No Review of Systems Const All systems reviewed & are unremarkable except as noted in HPI and below Reports no additional complaints Eyes Reports no additional complaints ENT Reports no additional complaints Card Reports no additional complaints Resp Reports no additional complaints GI Reports no additional complaints Reports as per HPI Musc Reports no additional complaints Skin/Breast Reports system reviewed and no additional complaints, except as documented Neuro Reports no additional complaints Psych Reports no additional complaints Endo Reports no additional complaints Kobi/Lymph Reports no additional complaints Aller/Immun Reports no additional complaints Telehealth Telehealth Telehealth Platform: Telephone Location of provider rendering services: practice address Location of patient: address on file Patient Identification confirmed using: Name, : Yes Telehealth method: voice only Patient verbally consented to treatment: Yes Patient verbally consented to billing insurance company: Yes Patient informed of any privacy concerns related to visit: Yes Minutes spent on Phone/Video with Pt.: 14 Results Reviewed Results Reviewed: Procedure(s): CT abdomen wo/w IV con EXAMINATION: CT ABDOMEN WITHOUT AND WITH CONTRAST CLINICAL INFORMATION: R93.429 COMPARISON: CT urogram 01/04/2024. TECHNIQUE: Contiguous axial thin section helical images of the abdomen were performed before and after the administration of 85 mL of Omnipaque 350 intravenous contrast. The data set was reformatted in the coronal and sagittal planes and reviewed on an independent workstation. This CT examination was performed using dose optimization techniques as appropriate, variously including the following: *Automated exposure control *Adjustment of mA and/or kV according to patient size (this includes techniques or standardized protocols for targeted exams where dose is matched to indication/reason for exam; i.e. extremities or head) *Use of iterative reconstruction technique FINDINGS: LUNG BASES: There is linear type atelectasis both lung bases. There are no effusions. There are no suspicious nodules or consolidations. There is mild cardiac enlargement. There is no pericardial effusion. LIVER, GALLBLADDER, AND BILIARY TREE: Cirrhotic configuration of liver with macro nodularity of the hepatic contour. No suspicious focal lesion. No intra or extra hepatic biliary dilatation. The gallbladder is surgically absent. PANCREAS: Normal without focal lesion. SPLEEN: There is splenomegaly, with the spleen measuring approximately 15.2 cm in AP diameter. ADRENAL GLANDS: Normal. KIDNEYS: RIGHT KIDNEY: The right kidney is atrophic. There is right renal cortical scarring, particularly involving the lower pole. There are no right renal calculi and there is no right hydronephrosis. LEFT KIDNEY: There is compensatory hypertrophy of the left kidney. Within the lateral upper cortex, there is a very subtle hypoattenuating enhancing oval lesion measuring 1.9 x 1.9 x 2.5 cm (series 7, image 78; series 4, image 71). This is a suspicious finding. No additional renal cortical lesions. Within the renal pelvis, there is redemonstration of a staghorn calculus measuring approximately 1.6 x 0.5 x 1.9 cm, with abundant surrounding inflammatory stranding. This has a similar appearance to the prior exam. There is no minimal hydronephrosis, and there is enhancement of the urothelium, likely inflammatory. BOWEL LOOPS: Imaged bowel structures demonstrate mild diverticulosis of the colon, predominantly involving the descending colon. Small bowel is normal. The GE junction, stomach, and duodenum appear normal. LYMPH NODES: None enlarged by size criteria. VASCULAR: Mild to moderate calcific atheromatous disease of the aorta and its branches. There is no aneurysm. OSSEOUS STRUCTURES: No suspicious lytic or blastic bone lesion identified. There is minimal wedging of the inferior endplate of L2, chronic. There are degenerative spinal changes, mild. There is a mild to moderate levoconvex thoracolumbar scoliosis, apex at L2. Scoliosis centered IMPRESSION: 1. Stable staghorn calculus in the left renal pelvis with surrounding pelvic inflammation, and urothelial thin enhancement. Mild hydronephrosis of the left kidney. 2. Subtle oval hypoattenuating lesion in the mid to upper pole cortex of the left kidney measuring 1.9 x 1.9 x 2.5 cm, new from the prior exam. Neoplasm is not excluded. Correlation with ultrasound recommended. 3. Atrophy of the right kidney. No right hydronephrosis or calculus. 4. Hepatic cirrhosis. Splenomegaly. 5. Mild cardiomegaly. Collected: 11/18/23 Location: [facility] Received: 11/19/23 Diagnosis Urine: Non-diangostic. COMMENT: Examination of a monolayer preparation slide shows a hypocellular specimen with red blood cells and occasional inflammatory cells. Clinical History Urinary tract infection Material Received Urine Gross Description Received is 5 cc of cloudy reddish fluid from which a ThinPrep slide is prepared. Date of Service: 01/04/24 CT ABDOMEN AND PELVIS WITHOUT AND WITH CONTRAST CLINICAL INFORMATION: Gross hematuria. COMPARISON: None available. TECHNIQUE: Noncontrast CT of the abdomen and pelvis is performed followed by split bolus contrast-enhanced images using 85 mL Omnipaque 350 contrast. Postcontrast imaging is performed during the combined nephrogram and excretion phase. Sagittal and coronal reformatted images were obtained on the technologist's workstation for both the precontrast and postcontrast phases. This CT examination was performed using dose optimization techniques as appropriate, variously including the following: *Automated exposure control. *Adjustment of mA and/or kV according to patient size (this includes techniques or standardized protocols for targeted exams where dose is matched to indication/reason for exam; i.e. extremities or head). *Use of iterative reconstruction technique. DLP: 1005 mGy-cm FINDINGS: LUNG BASES: There is a very small left pleural effusion. The lung bases are clear. There are coronary artery atherosclerotic calcifications. LIVER, GALLBLADDER, AND BILIARY TREE: The liver is normal in attenuation. There is a lobulated hepatic contour, and there is a prominent caudate lobe, features which may be seen in association with cirrhosis. No focal hepatic lesion or biliary ductal dilatation is present. The gallbladder is surgically absent. PANCREAS: Unremarkable. SPLEEN: There is splenomegaly, with a longitudinal span of 13.5 cm. ADRENAL GLANDS: Unremarkable. KIDNEYS AND URETERS: There is right renal cortical thinning. The left kidney is normal in size, shape, and attenuation. No hydronephrosis, hydroureter, or calculi seen. There is ill-defined circumferential soft tissue opacity adjacent to the left renal pelvis and the proximal left ureter (10:49-57 and 8:36-47). The left ureteropelvic junction appears narrowed (10:49). BLADDER: Unremarkable. GASTROINTESTINAL TRACT: There is mild diverticulosis, without acute diverticulitis. There is no focal bowel wall thickening. No obstruction, free intraperitoneal air or abscess is seen. The vermiform appendix appears normal. ABDOMINAL WALL: No significant hernia is appreciated. LYMPH NODES: There are shotty, nonpathologically enlarged para-aortic and mesenteric lymph nodes. One of the largest of these is located anterior to the upper abdominal aorta (18:36), measuring 1.0 x 0.8 cm. No sizable abdominopelvic lymphadenopathy is seen. VASCULAR: There is moderate aortoiliac atherosclerotic calcification. No abdominal aortic aneurysm or dissection is seen. The left ovarian vein is very prominent (i.e. 10:46-50), with distention and collateral formation. PELVIC VISCERA: The uterus and adnexa are unremarkable. OSSEUS STRUCTURES: There is a moderate lumbar levoscoliosis. There is multi-level thoracolumbar endplate arthropathy. A moderate Schmorl's node seen of the L4 lower endplate. No acute or aggressive osseous finding is noted. IMPRESSION: 1. There is narrowing of the left ureteropelvic junction, and there is ill-defined soft tissue density adjacent to the left renal pelvis and the proximal left ureter. This may be infectious or inflammatory in etiology, and the possibility of a neoplasm such as a transitional cell carcinoma is not excluded. Urology evaluation and management is recommended, with consideration for ureteroscopy. 2. The right kidney shows cortical thinning. 3. No urinary calculus or obstruction is seen. 4. There is prominence of the left ovarian vein, suggesting insufficiency. 5. There is mild diverticulosis, without diverticulitis. 6. There are shotty, nonpathologically enlarged periaortic and mesenteric lymph nodes, as detailed. Recommend management clinical basis. No pathologically enlarged abdominopelvic lymph nodes are seen. 7. There is mild splenomegaly. 8. No aggressive osseous lesion is seen. Assessment & Plan Assessment & Plan (1) Renal mass: Code(s): N28.89 - Other specified disorders of kidney and ureter Category: Medical (2) Calcium nephrolithiasis: Code(s): N20.0 - Calculus of kidney Category: Medical (3) Renal mass of unknown nature: Code(s): N28.89 - Other specified disorders of kidney and ureter Category: Medical (4) Hematuria: Code(s): R31.9 - Hematuria, unspecified Category: Medical Plan Plan will be for cystoscopy bilateral retrogrades, ureteroscopy. Possible left ureteral stent. Patient to stop aspirin 10-14 days prior to procedure. MRI for further evaluation of suspicious mass left kidney Orders: Orders MR abdomen wo/w con 09/24/24 N28.89 - Other specified disorders of kidney and ureter Patient Instructions: The patient had an opportunity to ask questions regarding treatment plan. The patient expressed understanding and agreement with the above treatment plan. The patient is aware they should contact our office by phone for worsening of their current condition or the appearance of new symptoms. Compliance is encouraged with any medications and followup testing that is ordered. It is a privilege to be allowed the opportunity to participate in the urologic care of your patient. If you have any questions or concerns regarding treatment for the above conditions please do not hesitate to contact me. The office telephone contact is [phone]. This note is constructed in part using voice recognition software. While every effort has been made to ensure accuracy photovoltaic subcontractor errors may have been included. Yours sincerely, Chuyita Ratliff MD Coding Level of Care Code Tele Est Pt Level 4 (93526) Complex EM visit Add On G2211 Diagnoses Renal mass N28.89 Calcium nephrolithiasis N20.0 Renal mass of unknown nature N28.89 Hematuria R31.9
--- OUTSIDE RECORDS SUMMARY | 2024-09-19 10:39 | XMS_ITS | Encounter Summary ---
Author Organization [facility] Address [address] [place] [address] Care Team Providers Care Coal Grader Name Role Phone Ania Browning MD Primary Care Provider Un available Niru Li MD Primary Care Provider + Ania Browning MD Primary Care Provider Un available Encounter Details Date Type Department Care Team Description 01/06/2021 Telephone Gastroenterology - [place] [address] [facility] [address] [place] [id number] Jacob Mi PA-C [address] [address] Social History Tobacco Use Types Packs/Day Years Used Date Smoking Tobacco: Never Smokeless Tobacco: Never Alcohol Use Standard Drinks/Week Comments Yes 0 (1 standard drink = 0.6 oz pur e alcohol) social Sex Assigned at Date Recorded Not on file COVID-19 Exposure Response Date Recorded In the last month, have you been in contact with someone who was confirmed or suspected to have Coronavirus / COVID-19? No / Unsure 01/02/2021 9:45 AM EDT documented as of this encounter Miscellaneous Notes * Telephone Encounter - Jacob Mi PA-C - 01/15/2021 10:56 AM EDT Just as long as she knows that will not be until September of next year or so have her at least be in touch with us if her swallowing gets worse we can at least maybe take a look and see you through the endoscopy what is going on but hopefully she can last until September of next year. * Telephone Encounter - Jahaira Haji - 01/15/2021 10:24 AM EDT Spoke to the patient and advised her that the inspector chief does not want to stop the blood thinnersfor now and she agreed. She is going to put it on hold(endoscopy) for now until they give her the go ahead to stop the blood thinners. * Telephone Encounter - Jahaira Haji - 01/15/2021 10:14 AM EDT Had to leave a message for the patient. Waiting for her to call back. * Telephone Encounter - Jacob Mi PA-C - 01/15/2021 7:57 AM EDT I have reviewed patient's recent hospitalization for rhabdomyolysis notes. Her inspector chief is still insistent that the antiplatelet medication cannot be held as she just had an RI in September with a drug-eluting stent put in the coronary artery. An endoscopy could be performed but it really is not helpful if we cannot intervene if there is something found. We cannot take biopsies nor can we do any dilation if need be. Patient is having issues with swallowing and we have done other evaluations such as a barium swallow which did show that she had some difficulty swallowing. This will be up to the patient whether she wants to be scheduled for an endoscopy for us to just look as we cannot interveneon anything that is found due to the fact she is on a blood thinner. Please let me know her final decision. * Telephone Encounter - Jahaira Haji - 01/14/2021 1:59 PM EDT Forms are in your bin for review. * Telephone Encounter - Wanda Singh - 01/14/2021 1:47 PM EDT Received notes on 01/08/[address] Oliveira's office which might mean any message regarding therecommendation from Dr. Oliveira may not be included in the notes. I do not see any subsequent message so I will give the notes received to Jahaira Mi to review. * Telephone Encounter - Jahaira Haji - 01/07/2021 9:16 AM EDT Called patient to get an update and she says the nurse sent a message to the Dr but has not heard back from them yet. She will reach out again today and call us with the final decision. * Telephone Encounter - Jacob Mi PA-C - 01/07/2021 7:57 AM EDT Please let me know what the final decision is please. thanks * Telephone Encounter - Jahaira Haji - 01/06/2021 2:40 PM EDT Spoke to the patient who wants to have this EGD done. She states that she has been off the Brilintabefore to have other procedures done. She cannot eat, therefore she needs this study done and will call the office of the inspector chief to speak to the nurse to see if she can stop it. Please do not cancel the appointment just yet until we hear back from them. * Telephone Encounter - Jacob Mi PA-C - 01/06/2021 1:13 PM EDT This is in addition to earlier message sent that patient had an RI in September and according to her inspector chief, the Brilinta cannot be held at all-needs to take it for 1 year. Please tell her that we are not able to hold the Brilinta thus it would not help to have patient be scheduled for the EGD as no intervention could be performed. Patient should continue on with omeprazole and be in touch with us in regards to her symptoms. documented in this encounter Plan of Treatment Not on file documented as of this encounter Visit Diagnoses Not on filedocumented in this encounter Care Teams Coal Grader Relationship Specialty Start Date End Date Ania Browning MD PCP - General Internal Medicine 06/12/11 Niru Li MD [address] [place] [id number] PCP - General Internal Medicine 11/17/21 12/01/21 Ania Browning MD PCP - General Internal Medicine 12/02/21 documented as of this encounter
--- OUTSIDE RECORDS SUMMARY | 2024-09-19 10:39 | XMS_ITS | Encounter Summary ---
Author Organization [facility] Address [address] [place] [address] Care Team Providers Care Entertainment Musician Name Role Phone Ania Browning MD Primary Care Provider Un available Niru Li MD Primary Care Provider + Ania Browning MD Primary Care Provider Un available Encounter Details Date Type Department Care Team Description 08/29/2018 Business Continuity Director Report Medical Records [address] [place] [address] Phil Petty PA-C Social History Tobacco Use Types Packs/Day Years Used Date Smoking Tobacco: Never Smokeless Tobacco: Never Alcohol Use Standard Drinks/Week Comments Yes 0 (1 standard drink = 0.6 oz pur e alcohol) social Sex Assigned at Date Recorded Not on file documented as of this encounter Plan of Treatment Not on file documented as of this encounter Visit Diagnoses Not on filedocumented in this encounter Care Teams Entertainment Musician Relationship Specialty Start Date End Date Ania Browning MD PCP - General Internal Medicine 06/12/11 Niru Li MD [address] [place] [id number] PCP - General Internal Medicine 11/17/21 12/01/21 Ania Browning MD PCP - General Internal Medicine 12/02/21 documented as of this encounter
--- OUTSIDE RECORDS SUMMARY | 2024-09-19 10:39 | XMS_ITS | Encounter Summary ---
Author Organization [facility] Address [address] [place] [address] Care Team Providers Care Wheel And Caster Repairer Name Role Phone Ania Browning MD Primary Care Provider Un available Niru Li MD Primary Care Provider + Ania Browning MD Primary Care Provider Un available Encounter Details Date Type Department Care Team Description 01/03/2021 [facility] Medical Records [address] [place] [id number] [place] [address] Social History Tobacco Use Types Packs/Day Years [...] AM EDT documented as of this encounter Plan of Treatment Not on file documented as of this encounter Visit Diagnoses Not on filedocumented in this encounter Care Teams Wheel And Caster Repairer Relationship Specialty Start Date End Date Ania Browning MD PCP - General Internal Medicine 06/12/11 Niru Li MD [address] [place] [id number] PCP - General Internal Medicine 11/17/21 12/01/21 Ania Browning MD PCP - General Internal Medicine 12/02/21 documented as of this encounter
--- OUTSIDE RECORDS SUMMARY | 2024-09-19 10:39 | XMS_ITS | Encounter Summary ---
Author Organization [facility] Address [address] [place] [address] Care Team Providers Care Hepatologist Name Role Phone Ania Browning MD Primary Care Provider Un available Niru Li MD Primary Care Provider + Ania Browning MD Primary Care Provider Un available Encounter Details Date Type Department Care Team Description 01/16/2014 Computer Systems Security Analyst Report Medical Records [address] [place] [address] Bubba Jennings MD Social History Tobacco Use Types Packs/Day Years [...] on filedocumented in this encounter Care Teams Hepatologist Relationship Specialty Start Date End Date Ania Browning MD PCP - General Internal Medicine 06/12/11 Niru Li MD [address] [place] [address] [id number] PCP - General Internal Medicine 11/17/21 12/01/21 Ania Browning MD PCP - General Internal Medicine 12/02/21 documented as of this encounter
--- OUTSIDE RECORDS SUMMARY | 2024-09-19 10:39 | XMS_ITS | Encounter Summary ---
Author Organization [facility] Address [address] [place] [address] Care Team Providers Care Line Mover Name Role Phone Ania Browning MD Primary Care Provider Un available Niru Li MD Primary Care Provider + Ania Browning MD Primary Care Provider Un available Encounter Details Date Type Department Care Team Description 01/04/2021 [facility] Medical Records [address] [place] [id number] Lindsay Ames Social History Tobacco Use Types Packs/Day Years [...] on filedocumented in this encounter Care Teams Line Mover Relationship Specialty Start Date End Date Ania Browning MD PCP - General Internal Medicine 06/12/11 Niru Li MD [address] [place] [address] [id number] PCP - General Internal Medicine 11/17/21 12/01/21 Ania Browning MD PCP - General Internal Medicine 12/02/21 documented as of this encounter
--- OUTSIDE RECORDS SUMMARY | 2024-09-19 10:39 | XMS_ITS | Encounter Summary ---
Author Organization [facility] Address [address] [place] [address] Care Team Providers Care Air Control Electronics Operator Name Role Phone Ania Browning MD Primary Care Provider Un available Niru Li MD Primary Care Provider + Ania Browning MD Primary Care Provider Un available Encounter Details Date Type Department Care Team Description 10/02/2011 Gang Investigator Report Medical Records [address] [place] [address] Bubba Jennings MD Social History Tobacco Use [...] on filedocumented in this encounter Care Teams Air Control Electronics Operator Relationship Specialty Start Date End Date Ania Browning MD PCP - General Internal Medicine 06/12/11 Niru Li MD [address] [place] [address] [id number] PCP - General Internal Medicine 11/17/21 12/01/21 Ania Browning MD PCP - General Internal Medicine 12/02/21 documented as of this encounter
--- OUTSIDE RECORDS SUMMARY | 2024-09-19 10:39 | XMS_ITS | Encounter Summary ---
Author Organization [facility] Address [address] [place] [address] Care Team Providers Care Conservation Of Resources Commissioner Name Role Phone Ania Browning MD Primary Care Provider Un available Niru Li MD Primary Care Provider + Ania Browning MD Primary Care Provider Un available Reason for Visit * Reason Onset Date Comments Note, Other 10/01/2011 Encounter Details Date Type Department Care Team Description 10/01/2011 Telephone Medicine/Pediatrics - [address] [phone] Ania Browning MD Note, Other Social History Tobacco Use Types Packs/Day Years Used Date Smoking Tobacco: Never Smokeless Tobacco: Never Alcohol Use Standard Drinks/Week Comments Yes 0 (1 standard drink = 0.6 oz pur e alcohol) social Sex Assigned at Date Recorded Not on file documented as of this encounter Miscellaneous Notes * Telephone Encounter - Debra Eagle - 10/01/2011 4:34 PM EDT . documented in this encounter Plan of Treatment Not on file documented as of this encounter Visit Diagnoses Not on filedocumented in this encounter Care Teams Conservation Of Resources Commissioner Relationship Specialty Start Date End Date Ania Browning MD PCP - General Internal Medicine 06/12/11 Niru Li MD [address] [place] [id number] PCP - General Internal Medicine 11/17/21 12/01/21 Ania Browning MD PCP - General Internal Medicine 12/02/21 documented as of this encounter
--- OUTSIDE RECORDS SUMMARY | 2024-09-19 10:39 | XMS_ITS | Encounter Summary ---
Author Organization [facility] Address [address] [place] [address] Care Team Providers Care Cable Inspector Name Role Phone Aina Browning MD Primary Care Provider Un available Niru Li MD Primary Care Provider + Ania Browning MD Primary Care Provider Un available Encounter Details Date Type Department Care Team Description 01/09/2014 Hospital Medical Records [address] [place] [id number] Bubba Jennings MD Social History Tobacco Use [...] on filedocumented in this encounter Care Teams Cable Inspector Relationship Specialty Start Date End Date Ania Browning MD PCP - General Internal Medicine 06/12/11 Niru Li MD [address] [place] [address] [phone] PCP - General Internal Medicine 11/17/21 12/01/21 Ania Browning MD PCP - General Internal Medicine 12/02/21 documented as of this encounter
--- OUTSIDE RECORDS SUMMARY | 2024-09-19 10:39 | XMS_ITS | Encounter Summary ---
Author Organization [facility] Address [address] [place] [address] Care Team Providers Care Vrt Mechanic Name Role Phone Ania Browning MD Primary Care Provider Un available Niru Li MD Primary Care Provider + Ania Browning MD Primary Care Provider Un available Encounter Details Date Type Department Care Team Description 01/08/2021 Shot Core Drill Operator Report Medical Records [address] [place] [address] Reid Oliveira MD Social History Tobacco Use Types Packs/Day [...] on filedocumented in this encounter Care Teams Vrt Mechanic Relationship Specialty Start Date End Date Ania Browning MD PCP - General Internal Medicine 06/12/11 Niru Li MD [address] [place] [address] PCP - General Internal Medicine 11/17/21 12/01/21 Ania Browning MD PCP - General Internal Medicine 12/02/21 documented as of this encounter
--- OUTSIDE RECORDS SUMMARY | 2024-09-19 10:39 | XMS_ITS | Encounter Summary ---
Author Organization [facility] Address [address] [place] [address] Care Team Providers Care Maintenance Instructor Name Role Phone Ania Browning MD Primary Care Provider Un available Niru Li MD Primary Care Provider + Ania Browning MD Primary Care Provider Un available Encounter Details Date Type Department Care Team Description 01/02/2021 Telephone Medicine/Pediatrics - [address] [phone] Ania Browning MD Social History Tobacco Use Types Packs/Day [...] encounter Miscellaneous Notes * Telephone Encounter - Dhaval Jordan R.N. - 01/02/2021 4:09 PM EDT [facility] to [facility] will fax over info. Advised of expect. Christiansen to pcp * Telephone Encounter - Ania Browning MD - 01/02/2021 4:05 PM EDT Please call her. Labs have come back showing muscle breakdown and elevated liver enzymes. I am concerned that this is why she is having so many muscle aches and weakness. It may be caused by her cholesterol medication. However the muscle breakdown number (CPK) is so high that she will probably needIV fluids in order to flush it from her system. She may need further evaluation to figure out why her body is doing this, if it is not the medication. Please advise to go to an ER. Please find out which ER she is going to, and call them with an expect (Patient with possible rhabdomyolysis) and fax over our lab results. Thank you! documented in this encounter Plan of Treatment Not on file documented as of this encounter Visit Diagnoses Not on filedocumented in this encounter Care Teams Maintenance Instructor Relationship Specialty Start Date End Date Ania Browning MD PCP - General Internal Medicine 06/12/11 Niru Li MD [address] [place] [phone] PCP - General Internal Medicine 11/17/21 12/01/21 Ania Browning MD PCP - General Internal Medicine 12/02/21 documented as of this encounter
--- OUTSIDE RECORDS SUMMARY | 2024-09-19 10:39 | XMS_ITS | Encounter Summary ---
Author Organization [facility] Address [address] [place] [address] Care Team Providers Care Instrument Mechanic Weapons System Name Role Phone Ania Browning MD Primary Care Provider Un available Niru Li MD Primary Care Provider + Ania Browning MD Primary Care Provider Un available Encounter Details Date Type Department Care Team Description 08/10/2018 Orders Only Medicine/Pediatrics - [address] [phone] Bartolo Castellon PA-C Social History Tobacco Use Types Packs/Day [...] on filedocumented in this encounter Care Teams Instrument Mechanic Weapons System Relationship Specialty Start Date End Date Ania Browning MD PCP - General Internal Medicine 06/12/11 Niru Li MD [address] [place] [id number] PCP - General Internal Medicine 11/17/21 12/01/21 Ania Browning MD PCP - General Internal Medicine 12/02/21 documented as of this encounter
--- OUTSIDE RECORDS SUMMARY | 2024-09-19 10:39 | XMS_ITS | Clinical Summary ---
Author Organization [facility] Address [address] [place] [address] Care Team Providers Care Medical Leader Name Role Phone Ania Browning MD Primary Care Provider Surgical History Surgery Date Site/Laterality Comments CARPAL TUNNEL RELEASE 07/26/2008 PROCEDURE: MD NEUROPLASTY &/TRANSPOS MEDIAN NRV CARPAL TUNNE CYSTOSCOPY 10/26/2011 PROCEDURE: MD CYSTOURETHROSCOPY; COMMENT: Dr Sunny Miranda CYSTOSCOPY 03/31/2016 Left PROCEDURE: MD CYSTOURETHROSCOPY; COMMENT: ureteroscopy, laser lithotripsy, stent placement COLONOSCOPY 08/2008 PROCEDURE: HISTORICAL COLONOSCOPY OTHER SURGICAL HISTORY 09/11/2020 PROCEDURE: MD PRQ TRLUML CORONARY STENT W/ANGIO ONE ART/BRNCH [...] Documents on File Type Date Recorded Patient Presser All Around Expl anation Health Care Decision (hx) 03/31/2016 AD CARROLL DIRECTIVE Health Care Decision (hx) 03/31/2016 AD CARROLL DIRECTIVE Health Care Decision (hx) 03/31/2016 AD CARROLL DIRECTIVE Health Care Decision (hx) 03/31/2016 AD CARROLL DIRECTIVE Health Care Decision (hx) 03/31/2016 AD CARROLL DIRECTIVE Care Teams Medical Leader Relationship Specialty Start Date End Date Ania Browning MD PCP - General Internal Medicine 12/02/21
--- OUTSIDE RECORDS SUMMARY | 2024-09-19 10:39 | XMS_ITS | Encounter Summary ---
Author Organization [facility] Address [address] [place] [address] Care Team Providers Care Pan Puller Name Role Phone Ania Browning MD Primary Care Provider Un available Niru Li MD Primary Care Provider + Ania Browning MD Primary Care Provider Un available Encounter Details Date Type Department Care Team Description 01/09/2014 Hospital Medical Records [address] [place] [address] Calixto Kuo MD Social History Tobacco Use Types Packs/Day [...] on filedocumented in this encounter Care Teams Pan Puller Relationship Specialty Start Date End Date Ania Browning MD PCP - General Internal Medicine 06/12/11 Niru Li MD [address] [place] [phone] PCP - General Internal Medicine 11/17/21 12/01/21 Ania Browning MD PCP - General Internal Medicine 12/02/21 documented as of this encounter
--- OUTSIDE RECORDS SUMMARY | 2024-09-19 10:40 | XMS_ITS | Encounter Summary ---
Author Organization [facility] Address [address] [place] [address] Care Team Providers Care Annealing Oven Operator Name Role Phone Ania Browning MD Primary Care Provider Un available Niru Li MD Primary Care Provider + Ania Browning MD Primary Care Provider Un available Encounter Details Date Type Department Care Team Description 10/01/2020 Superintendent Stevedoring Report Medical Records [address] [place] [address] Abstract, Provider Social History Tobacco Use Types Packs/Day Years [...] have Coronavirus / COVID-19? No / Unsure 09/18/2020 10:22 AM EDT documented as of this encounter Plan of Treatment Not on file documented as of this encounter Visit Diagnoses Not on filedocumented in this encounter Care Teams Annealing Oven Operator Relationship Specialty Start Date End Date Ania Browning MD PCP - General Internal Medicine 06/12/11 Niru Li MD [address] [place], [place] [phone] PCP - General Internal Medicine 11/17/21 12/01/21 Ania Browning MD PCP - General Internal Medicine 12/02/21 documented as of this encounter
--- OUTSIDE RECORDS SUMMARY | 2024-09-19 10:40 | XMS_ITS | Encounter Summary ---
Author Organization [facility] Address [address] [place] [address] Care Team Providers Care On Air Host Name Role Phone Ania Browning MD Primary Care Provider Un available Niru Li MD Primary Care Provider + Ania Browning MD Primary Care Provider Un available Encounter Details Date Type Department Care Team Description 08/08/2018 Christmas Tree Grower Report Medical Records [address] [place] [address] Ching Zuñiga MD [address] [place] [id number] Social History Tobacco Use Types Packs/Day Years [...] on filedocumented in this encounter Care Teams On Air Host Relationship Specialty Start Date End Date Ania Browning MD PCP - General Internal Medicine 06/12/11 Niru Li MD [address] [place] [address] PCP - General Internal Medicine 11/17/21 12/01/21 Ania Browning MD PCP - General Internal Medicine 12/02/21 documented as of this encounter
--- OUTSIDE RECORDS SUMMARY | 2024-09-19 10:40 | XMS_ITS | Encounter Summary ---
Author Organization [facility] Address [address] [place] [address] Care Team Providers Care Inhalation Therapy Aide Name Role Phone Niru Li MD Primary Care Provider + Ania Browning MD Primary Care Provider Un available Reason for Visit * Reason Onset Date Comments hospital follow up 11/17/2021 Encounter Details Date Type Department Care Team Description 11/17/2021 Telephone Adult Medicine [facility] [address] [place] [address] Niru Li MD [address] [place] [address] hospital follow up Social History Tobacco Use Types Packs/Day Years Used Date Smoking Tobacco: Never Smokeless Tobacco: Never Alcohol Use Standard Drinks/Week Comments Yes 0 (1 standard drink = 0.6 oz pur e alcohol) social Sex Assigned at Date Recorded Not on file documented as of this encounter Miscellaneous Notes * Telephone Encounter - Jovanna Salguero - 11/18/2021 4:25 PM EDT Called and left vm to return my call. * Telephone Encounter - Mona Dickey - 11/17/2021 1:10 PM EDT Hospital follow up appointment needed Hospital patient was treated at: [facility] Was this only an ER visit or was the patient admitted to the hospital? ER visit only Date of visit if ER visit only: 11/12/2021 If patient was admitted what was the date of discharge? N/A Reason/diagnosis for visit or stay: vertigo When was the patient told to follow up? Was visit or stay related to an injury? NO If yes, what was the date of injury (DOI)? N/A If yes, was the injury due to N/A documented in this encounter Plan of Treatment Not on file documented as of this encounter Visit Diagnoses Not on filedocumented in this encounter Care Teams Inhalation Therapy Aide Relationship Specialty Start Date End Date Niur Li MD [address] [place] [phone] PCP - General Internal Medicine 11/17/21 12/01/21 Ania Browning MD [address] [place] [phone] PCP - General Internal Medicine 12/02/21 documented as of this encounter
--- OUTSIDE RECORDS SUMMARY | 2024-09-19 10:40 | XMS_ITS | Encounter Summary ---
Author Organization [facility] Address [address] [place] [address] Care Team Providers Care Electric Engine Mechanic Name Role Phone Ania Browning MD Primary Care Provider Un available Niru Li MD Primary Care Provider + Ania Browning MD Primary Care Provider Un available Encounter Details Date Type Department Care Team Description 11/06/2011 Setup Technician Report Medical Records [address] [place] [address] Sunny Miranda Social History Tobacco Use Types Packs/Day Years [...] on filedocumented in this encounter Care Teams Electric Engine Mechanic Relationship Specialty Start Date End Date Ania Browning MD PCP - General Internal Medicine 06/12/11 Niru Li MD [address] [place] [id number] PCP - General Internal Medicine 11/17/21 12/01/21 Ania Browning MD PCP - General Internal Medicine 12/02/21 documented as of this encounter
--- OUTSIDE RECORDS SUMMARY | 2024-09-19 10:40 | XMS_ITS | Encounter Summary ---
Author Organization [facility] Address [address] [place] [address] Care Team Providers Care Sustainable Products Marketing Manager Name Role Phone Ania Browning MD Primary Care Provider Un available Niru Li MD Primary Care Provider + Ania Browning MD Primary Care Provider Un available Encounter Details Date Type Department Care Team Description 06/22/2011 Release of Information Medical Records [address] [place] [address] Abstract, Provider Social History Tobacco Use Types [...] on filedocumented in this encounter Care Teams Sustainable Products Marketing Manager Relationship Specialty Start Date End Date Ania Browning MD PCP - General Internal Medicine 06/12/11 Niru Li MD [address] [place], [place] [phone] PCP - General Internal Medicine 11/17/21 12/01/21 Ania Browning MD PCP - General Internal Medicine 12/02/21 documented as of this encounter
--- OUTSIDE RECORDS SUMMARY | 2024-09-19 10:40 | XMS_ITS | Encounter Summary ---
Author Organization [facility] Address [address] [place] [address] Care Team Providers Care Vehicle Safety Inspector Name Role Phone Ania Browning MD Primary Care Provider Un available Niru Li MD Primary Care Provider + Ania Browning MD Primary Care Provider Un available Encounter Details Date Type Department Care Team Description 11/18/2011 Balance Truer Report Medical Records [address] [place] [address] Mario Mariscal MD, MD Social History Tobacco Use Types Packs/Day [...] on filedocumented in this encounter Care Teams Vehicle Safety Inspector Relationship Specialty Start Date End Date Ania Browning MD PCP - General Internal Medicine 06/12/11 Niru Li MD [address] [place] [phone] PCP - General Internal Medicine 11/17/21 12/01/21 Ania Browning MD PCP - General Internal Medicine 12/02/21 documented as of this encounter
--- OUTSIDE RECORDS SUMMARY | 2024-09-19 10:40 | XMS_ITS | Encounter Summary ---
Author Organization [facility] Address [address] [place] [address] Care Team Providers Care Machine Woodworking Sander Name Role Phone Ania Browning MD Primary Care Provider Un available Niru Li MD Primary Care Provider + Ania Browning MD Primary Care Provider Un available Encounter Details Date Type Department Care Team Description 03/27/2016 Customer Technical Services Manager Report Medical Records [address] [place] [address] Tatyana Davidson Social History Tobacco Use Types Packs/Day Years [...] on filedocumented in this encounter Care Teams Machine Woodworking Sander Relationship Specialty Start Date End Date Ania Browning MD PCP - General Internal Medicine 06/12/11 Niru Li MD [address] [place] [address] PCP - General Internal Medicine 11/17/21 12/01/21 Ania Browning MD PCP - General Internal Medicine 12/02/21 documented as of this encounter
--- OUTSIDE RECORDS SUMMARY | 2024-09-19 10:40 | XMS_ITS | Encounter Summary ---
Author Organization [facility] Address [address] [place] [address] Care Team Providers Care Prior Authorization Technician Name Role Phone Ania Browning MD Primary Care Provider Un available Niru Li MD Primary Care Provider + Ania Browning MD Primary Care Provider Un available Encounter Details Date Type Department Care Team Description 04/13/2016 Retail Event And Sales Assistant Report Medical Records [address] [place] [address] Sunny Miranda Social History Tobacco Use Types [...] on filedocumented in this encounter Care Teams Prior Authorization Technician Relationship Specialty Start Date End Date Ania Browning MD PCP - General Internal Medicine 06/12/11 Niru Li MD [address] [place] [address] PCP - General Internal Medicine 11/17/21 12/01/21 Ania Browning MD PCP - General Internal Medicine 12/02/21 documented as of this encounter
--- OUTSIDE RECORDS SUMMARY | 2024-09-19 10:40 | XMS_ITS | Encounter Summary ---
Author Organization [facility] Address [address] [place] [address] Care Team Providers Care Senior Java Programmer Analyst Name Role Phone Ania Browning MD Primary Care Provider Un available Niru Li MD Primary Care Provider + Ania Browning MD Primary Care Provider Un available Encounter Details Date Type Department Care Team Description 12/16/2020 Artificial Teeth Inspector Report Medical Records [address] [place] [address] Reid Oliveira MD Social History Tobacco Use [...] have Coronavirus / COVID-19? No / Unsure 12/19/2020 8:23 AM EDT documented as of this encounter Plan of Treatment Not on file documented as of this encounter Visit Diagnoses Not on filedocumented in this encounter Care Teams Senior Java Programmer Analyst Relationship Specialty Start Date End Date Ania Browning MD PCP - General Internal Medicine 06/12/11 Niru Li MD [address] [place] [address] PCP - General Internal Medicine 11/17/21 12/01/21 Ania Browning MD PCP - General Internal Medicine 12/02/21 documented as of this encounter
--- OUTSIDE RECORDS SUMMARY | 2024-09-19 10:40 | XMS_ITS | Encounter Summary ---
Author Organization [facility] Address [address] [place] [address] Care Team Providers Care Commander Police Reserves Name Role Phone Ania Browning MD Primary Care Provider Un available Niru Li MD Primary Care Provider + Ania Browning MD Primary Care Provider Un available Encounter Details Date Type Department Care Team Description 10/01/2020 Beverage Manager Report Medical Records [address] [place] [address] Abstract, Provider Social History Tobacco Use Types [...] on filedocumented in this encounter Care Teams Commander Police Reserves Relationship Specialty Start Date End Date Ania Browning MD PCP - General Internal Medicine 06/12/11 Niru Li MD [address] [place], [place] [phone] PCP - General Internal Medicine 11/17/21 12/01/21 Ania Browning MD PCP - General Internal Medicine 12/02/21 documented as of this encounter
--- OUTSIDE RECORDS SUMMARY | 2024-09-19 10:40 | XMS_ITS | Clinical Summary ---
Author Organization [facility] Address [address] [place] [address] Care Team Providers Care Fire Range Technician Name Role Phone Ania Browning MD Primary Care Provider Un available Allergies Active Allergy Reactions Severity Noted Date Comments [place] Flavor 06/12/2011 Hmg-Coa-R Inhibitors OTHER 03/24/2021 Statin induced myopathy with elevated CPK Medications Medication Sig Dispensed Refills Start Date End Date Status Aspirin Adult Low Strength 81 MG EC tablet Take 81 mg by mouth daily. 0 09/12/2020 Active ALBUTEROL SULFATE (ProAir HFA) 108 (90 Base) MCG/ACT Aero Soln Inhale 2 Puffs into the lungs every 4 hours as needed for Cough or Wheezing. 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 Statin d/c. Following with Cardiology. 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 12/17/2014 Mild intermittent asthma 10/09/2011 Hydronephrosis, bilateral 09/18/2011 Renal stone 09/18/2011 Recurrent UTI 09/11/2011 Obesity 06/12/2011 Dysphagia Immunizations Name Administration Dates Next Due COVID-19 (Moderna) PT Reported 11/21/2020,2020 Tdap 09/11/2011 Family History Relation Name Status Comments Father [...] Assigned at Date Recorded Not on file Last Filed Vital Signs Vital Sign Reading Time Taken Comments Blood Pressure 160/80 01/29/2022 4:47 PM EDT Pulse 89 01/29/2022 3:26 PM EDT Temperature 36.4 ??C (97.5 ??F) 01/29/2022 3:26 PM ED T Respiratory Rate 16 03/24/2021 8:36 AM EST Oxygen Saturation 98% 01/29/2022 3:26 PM EDT Inhaled Oxygen Concentration - - Weight 75.8 kg (167 lb 3.2 oz) 01/29/2022 3:26 P M EDT Height 152.4 cm (5') 01/29/2022 3:26 PM EDT Body Mass Index 32.65 01/29/2022 3:26 PM EDT Plan of Treatment Health Maintenance Due Date Last Done Comments DIABETES: ANNUAL FOOT EXAM 1974 HEPATITIS C SCREENING 1974 SHINGLES VACCINE (1 of 2) 2006 DIABETES: ANNUAL EYE EXAM 11/23/2015 11/22/2014 COLON CANCER SCREENING 08/09/2018 9 (External Completion of test per patient (Patient reports normal results)) DIABETES: BLOOD SUGAR CONTRO L TEST (HGBA1C) 03/21/2021 12/19/2020, 12/17/2014, 04/09/2014 BONE DENSITY SCREENING 2021 PNEUMOCOCCAL VACCINE (1 - PCV) 2021 DTAP/TDAP/TD (2 - Td or Tdap) 09/10/2021 09/11/2011 DIABETES/HEART DISEASE: LAXMI AL CHOLESTEROL (LDL) 12/19/2021 12/19/2020, 12/17/2014, 04/09/2014, Additional history exists DIABETES: ANNUAL URINE PROTE IN TEST (MICROALBUMIN) 12/19/2021 12/19/2020, 12/17/2014, 04/09/2014 MAMMOGRAM 2022 2021, 07/08, 12/21/2019, Additional history exists Covid-19 Vaccine (3 - 2022-2 4 season) 2024 11/21/2020, 10/24/2020 BMI CHECK/ADVISE 05/10/2024 01/29/2022, , 01/14/2021, Additional history exists INFLUENZA (Season Ended) 2025 Care Teams Fire Range Technician Relationship Specialty Start Date End Date Ania Browning MD PCP - General Internal Medicine 12/02/21
--- OUTSIDE RECORDS SUMMARY | 2024-09-19 10:40 | XMS_ITS | Encounter Summary ---
Author Organization [facility] Address [address] [place] [address] Care Team Providers Care Oil Well Services Field Supervisor Name Role Phone Ania Browning MD Primary Care Provider Un available Niru Li MD Primary Care Provider + Ania Browning MD Primary Care Provider Un available Encounter Details Date Type Department Care Team Description 12/12/2013 Digital Forensic Analyst Report Medical Records [address] [place] [address] Song Fabian, PAJosiahC Social History Tobacco Use Types Packs/Day Years [...] on filedocumented in this encounter Care Teams Oil Well Services Field Supervisor Relationship Specialty Start Date End Date Ania Browning MD PCP - General Internal Medicine 06/12/11 Niru Li MD [address] [place] [address] [phone] PCP - General Internal Medicine 11/17/21 12/01/21 Ania Browning MD PCP - General Internal Medicine 12/02/21 documented as of this encounter
--- OUTSIDE RECORDS SUMMARY | 2024-09-19 10:40 | XMS_ITS | Encounter Summary ---
Author Organization [facility] Address [address] [place] [address] Care Team Providers Care Piccolo Mechanic Name Role Phone Ania Browning MD Primary Care Provider Un available Niru Li MD Primary Care Provider + Ania Browning MD Primary Care Provider Un available Encounter Details Date Type Department Care Team Description 12/18/2013 Retail Merchandiser Report Medical Records [address] [place] [address] Bubba Jennings MD Social History Tobacco Use [...] on filedocumented in this encounter Care Teams Piccolo Mechanic Relationship Specialty Start Date End Date Ania Browning MD PCP - General Internal Medicine 06/12/11 Niru Li MD [address] [place] [address] [phone] PCP - General Internal Medicine 11/17/21 12/01/21 Ania Browning MD PCP - General Internal Medicine 12/02/21 documented as of this encounter
--- OUTSIDE RECORDS SUMMARY | 2024-09-19 10:40 | XMS_ITS | Encounter Summary ---
Author Organization [facility] Address [address] [place] [address] Care Team Providers Care Interior Design Principal Name Role Phone Ania Browning MD Primary Care Provider Un available Niru Li MD Primary Care Provider + Ania Browning MD Primary Care Provider Un available Encounter Details Date Type Department Care Team Description 11/12/2011 Hospital Medical Records [address] [place] [address] Mario Mariscal MD, MD Social History Tobacco [...] on filedocumented in this encounter Care Teams Interior Design Principal Relationship Specialty Start Date End Date Ania Browning MD PCP - General Internal Medicine 06/12/11 Niru Li MD [address] [place] [address] [phone] PCP - General Internal Medicine 11/17/21 12/01/21 Ania Browning MD PCP - General Internal Medicine 12/02/21 documented as of this encounter
== END 2024-09-19 10:52 | disposition home or self-care (01) ==
LOC: HO.HUSH 09:51
PROVIDERS: PCP Nurse Practitioner Family; Visit Provider Urology
DX: N28.89 Other specified disorders of kidney and ureter (principal); N20.0 Calculus of kidney; R31.9 Hematuria, unspecified
CPT/HCPCS: 99214; G2211

== ENCOUNTER 2024-09-24 16:02 | Outpatient (REF) | payer MEDICARE, SELFPAY ==
--- NOTE | ~2024-09-24 | MR_ITS ---
EXAMINATION: MR ABDOMEN WITHOUT THEN WITH IV CONTRAST HISTORY: N28.89 - Other specified disorders of kidney and ureter COMPARISON: Correlation is made with a CT of the abdomen dated 08/23/2024. TECHNIQUE: Axial in and out of phase T1-weighted gradient echo, axial diffusion weighted, and axial and coronal HASTE T2 with fat saturation images were obtained through the abdomen. Subsequently, fat suppressed axial and coronal T1-weighted images were obtained after the intravenous administration of 7.5 mL Gadavist. FINDINGS: Liver: The liver demonstrates a nodular contour, consistent with cirrhosis. There is loss of signal intensity within the liver on in phase imaging when compared to out of phase imaging, compatible with iron overload. There is no enhancing liver mass. The hepatic veins are patent. There is a filling defect in the main portal vein, consistent with thrombus. There is no intra- or extrahepatic biliary dilatation. Gallbladder: The patient is status post cholecystectomy. Spleen: The spleen is enlarged. Pancreas: The pancreas is unremarkable. The pancreatic duct is normal in caliber. Adrenals: The adrenal glands are unremarkable. Kidneys: There is scarring at the lower pole of the right kidney. There is hypointensity in the left renal collecting system corresponding to the calculus noted on CT. There is moderate inflammation about the left renal pelvis with enhancement of the schmidt of the renal pelvis and proximal ureter as noted on CT. No left renal mass is identified to correspond to the abnormality seen on prior CT. Lymph nodes: There is no retroperitoneal lymphadenopathy in the upper abdomen. Multiple vascular collaterals are seen in the retroperitoneum. Fluid: There is no ascites in the upper abdomen. Visualized bowel: The visualized bowels loops are unremarkable in appearance. Visualized bones: There is levoscoliosis and degenerative disc disease of the spine. MR/MR abdomen wo/w con IMPRESSION: 1. Left renal staghorn calculus as noted on CT. There is inflammation of the renal pelvis as noted on CT. No left renal mass is identified. The abnormality seen on CT may have been related to infection. 2. Cirrhosis of the liver with splenomegaly and findings consistent with iron overload. 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 GI consultation is recommended. 3. A report was sent to Dr. Broussard-myke by secure text message on 09/25/2024 at 9:32 AM. Electronically signed by: Javier Lyn MD 09/25/2024 09:41 AM EDT
--- OUTSIDE RECORDS SUMMARY | 2024-09-24 16:09 | XMS_ITS | Encounter Summary ---
Author Organization [facility] Address [address] [place] [address] Care Team Providers Care Moisture Conditioner Operator Name Role Phone Ania Browning MD Primary Care Provider Un available Niru Li MD Primary Care Provider + Ania Browning MD Primary Care Provider Un available Encounter Details Date Type Department Care Team Description 01/16/2014 Fishing Rod Trimmer Report Medical Records [address] [place] [address] Bubba Jennings MD Social History Tobacco Use [...] on filedocumented in this encounter Care Teams Moisture Conditioner Operator Relationship Specialty Start Date End Date Ania Browning MD PCP - General Internal Medicine 06/12/11 Niru Li MD [address] [place] [address] [phone] PCP - General Internal Medicine 11/17/21 12/01/21 Ania Browning MD PCP - General Internal Medicine 12/02/21 documented as of this encounter
--- OUTSIDE RECORDS SUMMARY | 2024-09-24 16:09 | XMS_ITS | Encounter Summary ---
Author Organization [facility] Address [address] [place] [address] Care Team Providers Care Aquatics Specialist Name Role Phone Ania Browning MD Primary Care Provider Un available Niru Li MD Primary Care Provider + Ania Browning MD Primary Care Provider Un available Encounter Details Date Type Department Care Team Description 10/26/2011 Hospital Medical Records [address] [place] [address] Sunny Miranda Social History Tobacco Use Types [...] on filedocumented in this encounter Care Teams Aquatics Specialist Relationship Specialty Start Date End Date Ania Browning MD PCP - General Internal Medicine 06/12/11 Niru Li MD [address] [place] [address] [phone] PCP - General Internal Medicine 11/17/21 12/01/21 Ania Browning MD PCP - General Internal Medicine 12/02/21 documented as of this encounter
--- OUTSIDE RECORDS SUMMARY | 2024-09-24 16:09 | XMS_ITS | Encounter Summary ---
Author Organization [facility] Address [address] [place] [address] Care Team Providers Care Sales Floor Associate Name Role Phone Ania Browning MD Primary Care Provider Un available Niru Li MD Primary Care Provider + Ania Browning MD Primary Care Provider Un available Encounter Details Date Type Department Care Team Description 10/02/2011 Inside Sales Lead Report Medical Records [address] [place] [address] Bubba Jennings MD Social History Tobacco Use [...] on filedocumented in this encounter Care Teams Sales Floor Associate Relationship Specialty Start Date End Date Ania Browning MD PCP - General Internal Medicine 06/12/11 Niru Li MD [address] [place] [address] [phone] PCP - General Internal Medicine 11/17/21 12/01/21 Ania Browning MD PCP - General Internal Medicine 12/02/21 documented as of this encounter
--- OUTSIDE RECORDS SUMMARY | 2024-09-24 16:09 | XMS_ITS | Encounter Summary ---
Author Organization [facility] Address [address] [place] [address] Care Team Providers Care Turkey Farmer Name Role Phone Ania Browning MD Primary Care Provider Un available Niru Li MD Primary Care Provider + Ania Browning MD Primary Care Provider Un available Encounter Details Date Type Department Care Team Description 10/01/2020 Senior Lead Developer Report Medical Records [address] [place] [id number] Abstract, Provider Social History Tobacco Use Types [...] on filedocumented in this encounter Care Teams Turkey Farmer Relationship Specialty Start Date End Date Ania Browning MD PCP - General Internal Medicine 06/12/11 Niru Li MD [address] [place], [place] [phone] PCP - General Internal Medicine 11/17/21 12/01/21 Ania Browning MD PCP - General Internal Medicine 12/02/21 documented as of this encounter
--- OUTSIDE RECORDS SUMMARY | 2024-09-24 16:09 | XMS_ITS | Encounter Summary ---
Author Organization [facility] Address [address] [place] [address] Care Team Providers Care Highballer Name Role Phone Ania Browning MD Primary Care Provider Un available Niru Li MD Primary Care Provider + Ania Browning MD Primary Care Provider Un available Encounter Details Date Type Department Care Team Description 12/18/2013 Fretted Instrument Maker Hand Report Medical Records [address] [place] [address] Bubba Jennings MD Social History Tobacco Use [...] on filedocumented in this encounter Care Teams Highballer Relationship Specialty Start Date End Date Ania Browning MD PCP - General Internal Medicine 06/12/11 Niru Li MD [address] [place] [address] [phone] PCP - General Internal Medicine 11/17/21 12/01/21 Ania Browning MD PCP - General Internal Medicine 12/02/21 documented as of this encounter
--- OUTSIDE RECORDS SUMMARY | 2024-09-24 16:09 | XMS_ITS | Encounter Summary ---
Author Organization [facility] Address [address] [place] [address] Care Team Providers Care Spanner Operator Name Role Phone Ania Browning MD Primary Care Provider Un available Niru Li MD Primary Care Provider + Ania Browning MD Primary Care Provider Un available Encounter Details Date Type Department Care Team Description 09/12/2020 [facility] Medical Records [address] [place] [address] Red Jaffe MD Social History Tobacco Use Types Packs/Day [...] on filedocumented in this encounter Care Teams Spanner Operator Relationship Specialty Start Date End Date Ania Browning MD PCP - General Internal Medicine 06/12/11 Niru Li MD [address] [place] [address] [phone] PCP - General Internal Medicine 11/17/21 12/01/21 Ania Browning MD PCP - General Internal Medicine 12/02/21 documented as of this encounter
--- OUTSIDE RECORDS SUMMARY | 2024-09-24 16:09 | XMS_ITS | Encounter Summary ---
Author Organization [facility] Address [address] [place] [address] Care Team Providers Care Compositor Apprentice Name Role Phone Ania Browning MD Primary Care Provider Un available Niru Li MD Primary Care Provider + Ania Browning MD Primary Care Provider Un available Encounter Details Date Type Department Care Team Description 07/25/2020 Orders Only Medicine/Pediatrics - [address] [phone] Ángel Webber MD Breast calcifications Social History Tobacco Use Types Packs/Day Years Used Date Smoking Tobacco: Never Smokeless Tobacco: Never Alcohol Use Standard Drinks/Week Comments Yes 0 (1 standard drink = 0.6 oz pur e alcohol) social Sex Assigned at Date Recorded Not on file documented as of this encounter Plan of Treatment Not on file documented as of this encounter Procedures Procedure Name Priority Date/Time Associated Diagnosis Comments DX MAMMO INCL CAD BI Routine 07/19/2020 Breast calcifications documented in this encounter Results * DX MAMMO INCL CAD BI (07/19/2020) Ángel Webber MD MAMMOGRAPHY documented in this encounter Visit Diagnoses Diagnosis Breast calcifications Other (abnormal) findings on radiological examination of breast documented in this encounter Care Teams Compositor Apprentice Relationship Specialty Start Date End Date Ania Browning MD PCP - General Internal Medicine 06/12/11 Niru Li MD [address] [place] [phone] PCP - General Internal Medicine 11/17/21 12/01/21 Ania Browning MD PCP - General Internal Medicine 12/02/21 documented as of this encounter
--- OUTSIDE RECORDS SUMMARY | 2024-09-24 16:09 | XMS_ITS | Encounter Summary ---
Author Organization [facility] Address [address] [place] [address] Care Team Providers Care Steam Press Operator Name Role Phone Ania Browning MD Primary Care Provider Un available Niru Li MD Primary Care Provider + Ania Browning MD Primary Care Provider Un available Encounter Details Date Type Department Care Team Description 01/11/2014 Hospital Medical Records [address] [place] [id number] Bubba Jennings MD Social History Tobacco Use [...] on filedocumented in this encounter Care Teams Steam Press Operator Relationship Specialty Start Date End Date Ania Browning MD PCP - General Internal Medicine 06/12/11 Niru Li MD [address] [place] [address] [phone] PCP - General Internal Medicine 11/17/21 12/01/21 Ania Browning MD PCP - General Internal Medicine 12/02/21 documented as of this encounter
--- OUTSIDE RECORDS SUMMARY | 2024-09-24 16:09 | XMS_ITS | Encounter Summary ---
Author Organization [facility] Address [address] [place] [address] Care Team Providers Care Glazing Machine Operator Name Role Phone Ania Browning MD Primary Care Provider Un available Niru Li MD Primary Care Provider + Ania Browning MD Primary Care Provider Un available Encounter Details Date Type Department Care Team Description 12/10/2015 Tool And Die Maker/Designer Report Medical Records [address] [place] [address] Bubba Jennings MD Social History Tobacco Use [...] on filedocumented in this encounter Care Teams Glazing Machine Operator Relationship Specialty Start Date End Date Ania Browning MD PCP - General Internal Medicine 06/12/11 Niru Li MD [address] [place] [address] [phone] PCP - General Internal Medicine 11/17/21 12/01/21 Ania Browning MD PCP - General Internal Medicine 12/02/21 documented as of this encounter
--- OUTSIDE RECORDS SUMMARY | 2024-09-24 16:09 | XMS_ITS | Clinical Summary ---
Author Organization [facility] Address [address] [place] [address] Care Team Providers Care Locomotive Oiler Name Role Phone Ania Browning MD Primary Care Provider Surgical History Surgery Date Site/Laterality Comments CARPAL TUNNEL RELEASE 07/26/2008 PROCEDURE: [place] NEUROPLASTY &/TRANSPOS MEDIAN NRV CARPAL TUNNE CYSTOSCOPY 10/26/2011 PROCEDURE: [place] CYSTOURETHROSCOPY; COMMENT: Dr Sunny Miranda CYSTOSCOPY 03/31/2016 Left PROCEDURE: [place] CYSTOURETHROSCOPY; COMMENT: ureteroscopy, laser lithotripsy, stent placement COLONOSCOPY 08/2008 PROCEDURE: HISTORICAL COLONOSCOPY OTHER SURGICAL HISTORY 09/11/2020 PROCEDURE: [place] PRQ TRLUML CORONARY STENT W/ANGIO ONE ART/BRNCH [...] Documents on File Type Date Recorded Patient Measuring Machine Tender Expl anation Health Care Decision (hx) 03/31/2016 AD CARROLL DIRECTIVE Health Care Decision (hx) 03/31/2016 AD CARROLL DIRECTIVE Health Care Decision (hx) 03/31/2016 AD CARROLL DIRECTIVE Health Care Decision (hx) 03/31/2016 AD CARROLL DIRECTIVE Health Care Decision (hx) 03/31/2016 AD CARROLL DIRECTIVE Care Teams Locomotive Oiler Relationship Specialty Start Date End Date Ania Browning MD PCP - General Internal Medicine 12/02/21
--- OUTSIDE RECORDS SUMMARY | 2024-09-24 16:09 | XMS_ITS | Encounter Summary ---
Author Organization [facility] Address [address] [place] [address] Care Team Providers Care Reconnaissance Crewmember Name Role Phone Ania Browning MD Primary Care Provider Un available Niru Li MD Primary Care Provider + Ania Browning MD Primary Care Provider Un available Encounter Details Date Type Department Care Team Description 11/18/2011 Canvas Goods Maker Report Medical Records [address] [place] [address] Mario Mariscal MD, MD Social History Tobacco [...] on filedocumented in this encounter Care Teams Reconnaissance Crewmember Relationship Specialty Start Date End Date Ania Browning MD PCP - General Internal Medicine 06/12/11 Niru Li MD [address] [place] [phone] PCP - General Internal Medicine 11/17/21 12/01/21 Ania Browning MD PCP - General Internal Medicine 12/02/21 documented as of this encounter
--- OUTSIDE RECORDS SUMMARY | 2024-09-24 16:09 | XMS_ITS | Encounter Summary ---
Author Organization [facility] Address [address] [place] [address] Care Team Providers Care Elementary Vocal Music Teacher Name Role Phone Aina Browning MD Primary Care Provider Un available Niru Li MD Primary Care Provider + Ania Browning MD Primary Care Provider Un available Encounter Details Date Type Department Care Team Description 01/03/2021 [facility] Medical Records [address] [place] [phone] [place] [address] Social History Tobacco Use Types Packs/Day Years [...] on filedocumented in this encounter Care Teams Elementary Vocal Music Teacher Relationship Specialty Start Date End Date Ania Browning MD PCP - General Internal Medicine 06/12/11 Niru Li MD [address] [place] [phone] PCP - General Internal Medicine 11/17/21 12/01/21 Ania Browning MD PCP - General Internal Medicine 12/02/21 documented as of this encounter
--- OUTSIDE RECORDS SUMMARY | 2024-09-24 16:09 | XMS_ITS | Encounter Summary ---
Author Organization [facility] Address [address] [place] [address] Care Team Providers Care Refrigerating Engineer Name Role Phone Ania Browning MD Primary Care Provider Un available Niru Li MD Primary Care Provider + Ania Browning MD Primary Care Provider Un available Encounter Details Date Type Department Care Team Description 03/31/2016 Hospital Medical Records [address] [place] [address] Sunny Miranda Social History Tobacco Use Types [...] on filedocumented in this encounter Care Teams Refrigerating Engineer Relationship Specialty Start Date End Date Ania Browning MD PCP - General Internal Medicine 06/12/11 Niru Li MD [address] [place] [address] [phone] PCP - General Internal Medicine 11/17/21 12/01/21 Ania Browning MD PCP - General Internal Medicine 12/02/21 documented as of this encounter
--- OUTSIDE RECORDS SUMMARY | 2024-09-24 16:09 | XMS_ITS | Encounter Summary ---
Author Organization [facility] Address [address] [place] [address] Care Team Providers Care Digital Manager Name Role Phone Ania Browning MD Primary Care Provider Un available Niru Li MD Primary Care Provider + Ania Browning MD Primary Care Provider Un available Encounter Details Date Type Department Care Team Description 07/14/2012 Manager Of Learning Report Medical Records [address] [place] [address] Juliana Nam PA-C Social History Tobacco Use Types Packs/Day [...] on filedocumented in this encounter Care Teams Digital Manager Relationship Specialty Start Date End Date Ania Browning MD PCP - General Internal Medicine 06/12/11 Niru Li MD [address] [place] [phone] PCP - General Internal Medicine 11/17/21 12/01/21 Ania Browning MD PCP - General Internal Medicine 12/02/21 documented as of this encounter
--- OUTSIDE RECORDS SUMMARY | 2024-09-24 16:09 | XMS_ITS | Encounter Summary ---
Author Organization [facility] Address [address] [place] [address] Care Team Providers Care Roller Shop Supervisor Name Role Phone Ania Browning MD Primary Care Provider Un available Niru Li MD Primary Care Provider + Ania Browning MD Primary Care Provider Un available Encounter Details Date Type Department Care Team Description 07/24/2020 [facility] Medical Records [address] [place] [address] Ted Salcido MD Social History Tobacco Use Types Packs/Day [...] on filedocumented in this encounter Care Teams Roller Shop Supervisor Relationship Specialty Start Date End Date Ania Browning MD PCP - General Internal Medicine 06/12/11 Niru Li MD [address] [place] [address] [phone] PCP - General Internal Medicine 11/17/21 12/01/21 Ania Browning MD PCP - General Internal Medicine 12/02/21 documented as of this encounter
--- OUTSIDE RECORDS SUMMARY | 2024-09-24 16:09 | XMS_ITS | Encounter Summary ---
Author Organization [facility] Address [address] [place] [address] Care Team Providers Care Dye Tub Tender Name Role Phone Ania Browning MD Primary Care Provider Un available Niru Li MD Primary Care Provider + Ania Browning MD Primary Care Provider Un available Encounter Details Date Type Department Care Team Description 02/09/2018 Hospital Medical Records [address] [place] [id number] [place] Social History Tobacco Use Types Packs/Day Years [...] on filedocumented in this encounter Care Teams Dye Tub Tender Relationship Specialty Start Date End Date Ania Browning MD PCP - General Internal Medicine 06/12/11 Niru Li MD [address] [place] [address] [phone] PCP - General Internal Medicine 11/17/21 12/01/21 Ania Browning MD PCP - General Internal Medicine 12/02/21 documented as of this encounter
--- OUTSIDE RECORDS SUMMARY | 2024-09-24 16:09 | XMS_ITS | Encounter Summary ---
Author Organization [facility] Address [address] [place] [address] Care Team Providers Care Education Instructor Name Role Phone Ania Browning MD Primary Care Provider Un available Niru Li MD Primary Care Provider + Ania Browning MD Primary Care Provider Un available Encounter Details Date Type Department Care Team Description 01/09/2014 Hospital Medical Records [address] [place] [address] Calixto Kuo MD Social History Tobacco Use [...] on filedocumented in this encounter Care Teams Education Instructor Relationship Specialty Start Date End Date Ania Browning MD PCP - General Internal Medicine 06/12/11 Niru Li MD [address] [place] [phone] PCP - General Internal Medicine 11/17/21 12/01/21 Ania Browning MD PCP - General Internal Medicine 12/02/21 documented as of this encounter
--- OUTSIDE RECORDS SUMMARY | 2024-09-24 16:09 | XMS_ITS | Encounter Summary ---
Author Organization [facility] Address [address] [place] [address] Care Team Providers Care Vendor Specialist Name Role Phone Ania Browning MD Primary Care Provider Un available Niru Li MD Primary Care Provider + Ania Browning MD Primary Care Provider Un available Encounter Details Date Type Department Care Team Description 12/02/2020 Orders Only Gastroenterology - [place] [address] [facility] [address] [place] [phone] Jacob Mi PA-C [address] [address] Dysphagia, unspecified type Social History Tobacco Use Types Packs/Day Years [...] have Coronavirus / COVID-19? No / Unsure 11/08/2020 9:48 AM EDT documented as of this encounter Plan of Treatment Not on file documented as of this encounter Procedures Procedure Name Priority Date/Time Associated Diagnosis Comments CHG RADIOLOGIC EXAM ESOPHAGUS SINGLE CONTRAST STUDY Routine 11/25/2020 Dysphagia, unspecified type documented in this encounter Results * RADIOLOGIC EXAM ESOPHAGUS SINGLE CONTRAST STUDY (11/25/2020) aJcob Mi PA-C RADIOLOGY documented in this encounter Visit Diagnoses Diagnosis Dysphagia, unspecified type documented in this encounter Care Teams Vendor Specialist Relationship Specialty Start Date End Date Ania Browning MD PCP - General Internal Medicine 06/12/11 Niru Li MD [address] [place] [id number] PCP - General Internal Medicine 11/17/21 12/01/21 Ania Browning MD PCP - General Internal Medicine 12/02/21 documented as of this encounter
--- OUTSIDE RECORDS SUMMARY | 2024-09-24 16:09 | XMS_ITS | Encounter Summary ---
Author Organization [facility] Address [address] [place] [address] Care Team Providers Care Accelerator Systems Director Name Role Phone Ania Browning MD Primary Care Provider Un available Niru Li MD Primary Care Provider + Ania Browning MD Primary Care Provider Un available Encounter Details Date Type Department Care Team Description 06/22/2011 Release of Information Medical Records [address] [place] [address] Abstract, Provider Social History Tobacco Use Types [...] on filedocumented in this encounter Care Teams Accelerator Systems Director Relationship Specialty Start Date End Date Ania Browning MD PCP - General Internal Medicine 06/12/11 Niru Li MD [address] [place], [place] [id number] PCP - General Internal Medicine 11/17/21 12/01/21 Ania Browning MD PCP - General Internal Medicine 12/02/21 documented as of this encounter
--- OUTSIDE RECORDS SUMMARY | 2024-09-24 16:09 | XMS_ITS | Encounter Summary ---
Author Organization [facility] Address [address] [place] [address] Care Team Providers Care Truck Dispatcher Name Role Phone Ania Browning MD Primary Care Provider Un available Niru Li MD Primary Care Provider + Ania Browning MD Primary Care Provider Un available Reason for Visit * Reason Onset Date Comments TEST RESULTS 11/29/2020 Encounter Details Date Type Department Care Team Description 11/29/2020 Telephone Gastroenterology - [place] 175 [facility] [address] [place] [id number] Jacob Mi PA-C [address] [address] TEST RESULTS Social History Tobacco Use Types Packs/Day Years [...] encounter Miscellaneous Notes * Telephone Encounter - Jahaira Haji - 12/06/2020 10:38 AM EDT Spoke to the patient who was just looking for when the CT scan was going to be booked so I told herit willgo through the prior auth dept first and thenit'll get booked. She agreed to wait for the appointment. * Telephone Encounter - Milla Mccormick - 12/06/2020 10:22 AM EDT Pt calling in asking for update on CT scan Call pt at [phone] Please advise Thanks * Telephone Encounter - Jahaira Haij - 12/02/2020 8:17 AM EDT Left a vm for the patient to call our office back. * Telephone Encounter - Jacob Mi PA-C - 11/29/2020 12:09 PM EDT Please let patient know that the barium swallow had indicated that there was some external pressureon the esophagus and the cervical thoracic region which is due to something with her spine. There was also difficulty with her swallowing a pill. May suggest an EGD as well as a CT of neck for further evaluation of this extrinsic mass-effect. * Telephone Encounter - Jahaira Haji - 11/29/2020 11:49 AM EDT I have given the results to Jacob for review. * Telephone Encounter - Milla Mccormick - 11/29/2020 11:46 AM EDT Pt calling in would like a call with barium swallow results Call pt at [phone] Thanks documented in this encounter Plan of Treatment Not on file documented as of this encounter Visit Diagnoses Not on filedocumented in this encounter Care Teams Truck Dispatcher Relationship Specialty Start Date End Date Ania Browning MD PCP - General Internal Medicine 06/12/11 Niru Li MD [address] [place] [id number] PCP - General Internal Medicine 11/17/21 12/01/21 Ania Browning MD PCP - General Internal Medicine 12/02/21 documented as of this encounter
--- OUTSIDE RECORDS SUMMARY | 2024-09-24 16:09 | XMS_ITS | Encounter Summary ---
Author Organization [facility] Address [address] [place] [address] Care Team Providers Care Head Stock Operator Name Role Phone Ania Browning MD Primary Care Provider Un available Niru Li MD Primary Care Provider + Ania Browning MD Primary Care Provider Un available Encounter Details Date Type Department Care Team Description 12/16/2020 Home Economics Teacher Report Medical Records [address] [place] [address] Reid Oliveira MD Social History Tobacco Use [...] on filedocumented in this encounter Care Teams Head Stock Operator Relationship Specialty Start Date End Date Ania Browning MD PCP - General Internal Medicine 06/12/11 Niru Li MD [address] [place] [address] PCP - General Internal Medicine 11/17/21 12/01/21 Ania Browning MD PCP - General Internal Medicine 12/02/21 documented as of this encounter
--- OUTSIDE RECORDS SUMMARY | 2024-09-24 16:09 | XMS_ITS | Encounter Summary ---
Author Organization [facility] Address [address] [place] [address] Care Team Providers Care Senior Storage Engineer Name Role Phone Ania Browning MD Primary Care Provider Un available Niru Li MD Primary Care Provider + Ania Browning MD Primary Care Provider Un available Encounter Details Date Type Department Care Team Description 01/06/2021 Telephone Gastroenterology - [place] 175 [facility] [address] [place] [phone] Jacob Mi PA-C [address] [address] Social History Tobacco Use Types Packs/Day Years [...] the patient and advised her that the gameplay programmer does not want to stop the blood [...] patient's recent hospitalization for rhabdomyolysis notes. Her gameplay programmer is still insistent that the antiplatelet medication cannot be held as she just had an ID in September with a drug-eluting stent put [...] and will call the office of the gameplay programmer to speak to the nurse to see if she can stop it. Please do not cancel the appointment just yet until we hear back from them. * Telephone Encounter - Jacob Mi PA-C - 01/06/2021 1:13 PM EDT This is in addition to earlier message sent that patient had an ID in September and according to her gameplay programmer, the Brilinta cannot be held at all-needs [...] filedocumented in this encounter Care Teams Senior Storage Engineer Relationship Specialty Start Date End Date Ania Browning MD PCP - General Internal Medicine 06/12/11 Niru Li MD [address] [place] [id number] PCP - General Internal Medicine 11/17/21 12/01/21 Ania Browning MD PCP - General Internal Medicine 12/02/21 documented as of this encounter
--- OUTSIDE RECORDS SUMMARY | 2024-09-24 16:09 | XMS_ITS | Encounter Summary ---
Author Organization [facility] Address [address] [place] [address] Care Team Providers Care Head Of Academic Technology Name Role Phone Ania Browning MD Primary Care Provider Un available Niru Li MD Primary Care Provider + Ania Browning MD Primary Care Provider Un available Encounter Details Date Type Department Care Team Description 02/11/2021 Gravity Meter Observer Report Medical Records [address] [place] [address] Reid Oliveira MD Social History Tobacco Use [...] filedocumented in this encounter Care Teams Head Of Academic Technology Relationship Specialty Start Date End Date Ania Browning MD PCP - General Internal Medicine 06/12/11 Niru Li MD [address] [place] [id number] PCP - General Internal Medicine 11/17/21 12/01/21 Ania Browning MD PCP - General Internal Medicine 12/02/21 documented as of this encounter
--- OUTSIDE RECORDS SUMMARY | 2024-09-24 16:09 | XMS_ITS | Encounter Summary ---
Author Organization [facility] Address [address] [place] [address] Care Team Providers Care Radiologic Electronic Specialist Name Role Phone Ania Browning MD Primary Care Provider Un available Niru Li MD Primary Care Provider + Ania Browning MD Primary Care Provider Un available Encounter Details Date Type Department Care Team Description 10/19/2011 Offender Employment Specialist Report Medical Records [address] [place] [address] Bubba Jennings MD Social History Tobacco Use [...] on filedocumented in this encounter Care Teams Radiologic Electronic Specialist Relationship Specialty Start Date End Date Ania Browning MD PCP - General Internal Medicine 06/12/11 Niru Li MD [address] [place] [id number] PCP - General Internal Medicine 11/17/21 12/01/21 Ania Browning MD PCP - General Internal Medicine 12/02/21 documented as of this encounter
--- OUTSIDE RECORDS SUMMARY | 2024-09-24 16:09 | XMS_ITS | Encounter Summary ---
Author Organization [facility] Address [address] [place] [address] Care Team Providers Care Dialysis Registered Nurse Name Role Phone Ania Browning MD Primary Care Provider Un available Niru Li MD Primary Care Provider + Ania Browning MD Primary Care Provider Un available Encounter Details Date Type Department Care Team Description 01/04/2021 Hospital Medical Records [address] [place] [id number] Lindsay Ames Social History Tobacco Use Types [...] on filedocumented in this encounter Care Teams Dialysis Registered Nurse Relationship Specialty Start Date End Date Ania Browning MD PCP - General Internal Medicine 06/12/11 Niru Li MD [address] [place] [id number] PCP - General Internal Medicine 11/17/21 12/01/21 Ania Browning MD PCP - General Internal Medicine 12/02/21 documented as of this encounter
--- OUTSIDE RECORDS SUMMARY | 2024-09-24 16:09 | XMS_ITS | Encounter Summary ---
Author Organization [facility] Address [address] [place] [address] Care Team Providers Care Structural Steel Worker Helper Name Role Phone Ania Browning MD Primary Care Provider Un available Reason for Visit * Reason Onset Date Comments Pre Op Visit 02/02/2022 Encounter Details Date Type Department Care Team Description 02/02/2022 Telephone Adult Medicine [address] [address] Ania Browning MD Pre Op Visit Social History Tobacco Use Types Packs/Day Years Used Date Smoking Tobacco: Never Smokeless Tobacco: Never Alcohol Use Standard Drinks/Week Comments Yes 0 (1 standard drink = 0.6 oz pur e alcohol) social Sex Assigned at Date Recorded Not on file COVID-19 Exposure Response Date Recorded In the last 10 days, have yo u been in contact with someone who was confirmed or suspected to have Coronavirus/COVID-19? No / Unsure 01/29/2022 3:08 PM EDT documented as of this encounter Miscellaneous Notes * Telephone Encounter - Celeste Bailey - 02/03/2022 9:36 AM EDT Faxed ekg to [phone] * Telephone Encounter - Pau Kwan PA-C - 02/02/2022 3:43 PM EDT Please fax copy of EKG. Thank you. * Telephone Encounter - Naila Baig - 02/02/2022 10:40 AM EDT Please fax a copy of EKG to me at [phone]. Thank you Zainab documented in this encounter Plan of Treatment Not on file documented as of this encounter Visit Diagnoses Not on filedocumented in this encounter Care Teams Structural Steel Worker Helper Relationship Specialty Start Date End Date Ania Browning MD PCP - General Internal Medicine 12/02/21 documented as of this encounter
[2024-09-24] MEDS: gadobutroL 7.5 ML VIAL IVPUSH (16:34)
== END 2024-09-24 16:03 | disposition home or self-care (01) ==
LOC: HO.MRI 16:02
PROVIDERS: PCP Nurse Practitioner Family; Visit Provider Urology
DX: N28.89 Other specified disorders of kidney and ureter (principal)
CPT/HCPCS: 74183; A9585

== ENCOUNTER → 2024-09-24 16:02 | Outpatient (BNV) | payer MEDICARE, SELFPAY | PROVIDERS: PCP Nurse Practitioner Family; Visit Provider Radiology Diagnostic Radiology | DX: K74.60 Unspecified cirrhosis of liver (principal) | CPT/HCPCS: 74183 ==

== ENCOUNTER 2024-09-25 07:30 | Outpatient (RCR) | payer MEDICARE, SELFPAY ==
[2024-08-07 07:37] VITALS: BP 142/56; PULSE 84; RESP 16; O2SAT 98
[2024-08-07] MEDS: Iron Sucrose Complex 200 MG/10 ML VIAL IVPUSH (07:41)
[2024-08-16 07:29] VITALS: BP 125/56; PULSE 90; RESP 16; TEMP 36.7; O2SAT 97
[2024-08-16] MEDS: Iron Sucrose Complex 200 MG/10 ML VIAL IVPUSH (07:35)
[2024-08-21 07:30] VITALS: BP 158/84; PULSE 73; RESP 18; TEMP 36.9; O2SAT 100
[2024-08-21] MEDS: Iron Sucrose Complex 200 MG/10 ML VIAL IVPUSH (07:34)
[2024-08-29 08:43] VITALS: BP 148/66; PULSE 84; RESP 18; TEMP 36.6
[2024-08-29] MEDS: Iron Sucrose Complex 200 MG in 0.9 % Sodium Chloride 100 ML 440 MG IV (09:04)
[2024-08-29 09:28] LABS: Hematocrit 31.3 % (37.0-47.0); Hemoglobin 9.6 g/dl (12.0-16.0); Mean Corpuscular HGB Conc 30.7 g/dl (31.0-35.0); Mean Corpuscular Hemoglobin 28.2 pg (27.0-33.0); Mean Corpuscular Volume 92.1 fL (80.0-98.0); PLT CLUMP 1; Red Cell Distribution Width 20.8 % (11.0-16.0)
[2024-08-29 09:47] LABS: White Blood Count 4.8 X10*3/uL (4.8-10.8)
[2024-08-29 09:58] LABS: Ferritin 123 ng/mL (10-250)
[2024-09-04 07:35] VITALS: BP 159/79; PULSE 88; RESP 16; TEMP 36.6; O2SAT 99
[2024-09-04] MEDS: Iron Sucrose Complex 200 MG in 0.9 % Sodium Chloride 100 ML 440 MG IV (07:40)
[2024-09-11 07:33] VITALS: BP 166/76; PULSE 80; RESP 16; TEMP 36.6; O2SAT 100
[2024-09-11] MEDS: Iron Sucrose Complex 200 MG in 0.9 % Sodium Chloride 100 ML 440 MG IV (07:38)
[2024-09-18 07:20] VITALS: BP 130/78; PULSE 78; RESP 16; TEMP 36.7; O2SAT 100
[2024-09-18] MEDS: Iron Sucrose Complex 200 MG in 0.9 % Sodium Chloride 100 ML 440 MG IV (07:23)
[2024-09-25 07:35] VITALS: BP 143/58; PULSE 85; RESP 16; TEMP 36.6; O2SAT 100
[2024-09-25] MEDS: Iron Sucrose Complex 200 MG in 0.9 % Sodium Chloride 100 ML 440 MG IV (07:44)
[2024-09-25 08:01] LABS: Hematocrit 37.2 % (37.0-47.0); Hemoglobin 11.7 g/dl (12.0-16.0); Mean Corpuscular HGB Conc 31.5 g/dl (31.0-35.0); Mean Corpuscular Hemoglobin 29.8 pg (27.0-33.0); Mean Corpuscular Volume 94.7 fL (80.0-98.0); PLT CLUMP 1; Red Blood Count 3.93 X10*6/uL (4.20-5.50); Red Cell Distribution Width 18.8 % (11.0-16.0)
[2024-09-25 08:28] LABS: Ferritin 372 ng/mL (10-250)
[2024-09-25 09:03] LABS: White Blood Count 8.2 X10*3/uL (4.8-10.8)
== END 2024-09-25 08:05 | disposition home or self-care (01) ==
LOC: HO.INF 07:30
PROVIDERS: Visit Provider Internal Medicine Medical Oncology
DX: D64.9 Anemia, unspecified (principal)
CPT/HCPCS: 36415; 82728; 85027; 96365; 96374; J1756

== ENCOUNTER 2024-09-26 11:18 | Day surgery (SDC) | payer MEDICARE, SELFPAY ==
--- OUTSIDE RECORDS SUMMARY | 2024-09-13 13:10 | XMS_ITS | Clinical Summary ---
[facility] Address [address] [place] [address] Care Team Providers Care Slot Machine Repairer Name Role Phone Ania Browning MD Primary Care Provider Surgical History Surgery Date Site/Laterality Comments CARPAL TUNNEL RELEASE 07/26/2008 PROCEDURE: [place] NEUROPLASTY &/TRANSPOS MEDIAN NRV CARPAL TUNNE CYSTOSCOPY 10/26/2011 PROCEDURE: [place] CYSTOURETHROSCOPY; COMMENT: Dr Sunny Miranda CYSTOSCOPY 03/31/2016 Left PROCEDURE: [place] CYSTOURETHROSCOPY; COMMENT: ureteroscopy, laser lithotripsy, stent placement COLONOSCOPY 08/2008 PROCEDURE: HISTORICAL COLONOSCOPY OTHER SURGICAL HISTORY 09/11/2020 PROCEDURE: [place] PRQ TRLUML CORONARY STENT W/ANGIO ONE ART/BRNCH [...] Documents on File Type Date Recorded Patient Piggyback Clerk Expl anation Health Care Decision (hx) 03/31/2016 AD CARROLL DIRECTIVE Health Care Decision (hx) 03/31/2016 AD CARROLL DIRECTIVE Health Care Decision (hx) 03/31/2016 AD CARROLL DIRECTIVE Health Care Decision (hx) 03/31/2016 AD CARROLL DIRECTIVE Health Care Decision (hx) 03/31/2016 AD CARROLL DIRECTIVE Care Teams Slot Machine Repairer Relationship Specialty Start Date End Date Ania Browning MD PCP - General Internal Medicine 12/02/21
[2024-09-26] VITALS (17 sets, daily range): BP systolic 107–143; BP diastolic 51–74; PULSE 74–99; RESP 10–21; TEMP 36.5–37; O2SAT 94–100; BMI 31.9
--- NOTE | ~2024-09-26 | US_ITS ---
Ultrasound-guided liver biopsy History: Cirrhosis Procedure: Ultrasound-guided liver biopsy Risks and benefits and possible complications were discussed with the patient and consent form was signed. The abdomen was prepped and draped in usual sterile fashion. 1% lidocaine was used for anesthesia. A 19-gauge coaxial needle was inserted through the skin and soft tissues and into the right lower lobe of the liver. A total of 4, 20-gauge cores were performed. Permanent ultrasound images were archived. 2 Gelfoam torpedoes were inserted through the coaxial and administered into the biopsy tract and at the level of the capsule. The needle was then removed. The specimens were placed in formalin and sent to pathology. The patient tolerated the procedure well. The procedure was performed under moderate sedation with a dedicated nurse for monitoring of vital signs. The patient received a total of Ultrasound-guided liver biopsy Moderate sedation time: 45 min This procedure was performed by Ken Young NP, and directly supervised by Pablo Hammonds MD. US/US biopsy liver Impression: Ultrasound-guided non-targeted liver biopsy Electronically signed by: Pablo Hammonds MD 09/27/2024 12:09 PM EDT
[2024-09-26 12:21] LABS: Basophils Absolute Auto 0.1 X10*3/uL (0.0-0.2); Basophils Percent Auto 0.7 % (0-2); Eosinophils Absolute Auto 0.2 X10*3/uL (0.0-0.4); Eosinophils Percent Auto 2.5 % (0-4); Hematocrit 37.6 % (37.0-47.0); Hemoglobin 12.1 g/dl (12.0-16.0); Imm Gran Abs Auto 0.02 X10*3/uL (0.00-0.03); Imm Gran Pct Auto 0.3 % (0.0-0.4); Lymphocytes Absolute Auto 1.1 X10*3/uL (1.2-4.9); MANUAL DIFF FLAG SCAN; Mean Corpuscular HGB Conc 32.2 g/dl (31.0-35.0); Mean Corpuscular Hemoglobin 30.3 pg (27.0-33.0); Monocytes Absolute Auto 0.6 X10*3/uL (0.1-1.2); Monocytes Percent Auto 8.8 % (2-11); Neutrophils Absolute Auto 4.8 x10*3/uL (2.0-8.3); Neutrophils Percent Auto 71.7 % (45-73); PLT CLUMP 1; SCAN SMEAR FLAG 1
[2024-09-26 12:22] LABS: INTERNATIONAL NORM RATIO 1.2 (0.9-1.1); Prothrombin Time 13.7 SEC (10.9-12.4)
[2024-09-26 12:25] LABS: Partial Thromboplastin Time 33.6 SEC (26.0-36.8)
[2024-09-26 12:28] LABS: Anion Gap 15 (12-20); Blood Urea Nitrogen 18 mg/dL (9-16); Calcium 8.8 mg/dL (8.4-10.2); Carbon Dioxide 21 mmol/L (22-29); Chloride 106 mmol/L (96-108); Creatinine Clr Calc Pharmacy 53.1; Estimated Glomerular Filt Rate > 60; Glucose Random 76 mg/dL (60-115); Potassium 5.1 mmol/L (3.3-5.1); Sodium 137 mmol/L (135-145)
[2024-09-26 12:33] LABS: White Blood Count 6.7 X10*3/uL (4.8-10.8)
[2024-09-26 12:34] LABS: SLIDE REVIEW VERIFIED
[2024-09-26] MEDS: Midazolam HCl 2 MG/2 ML VIAL 0.5 MG IVPUSH ×3 (13:19→13:53)
[2024-09-26] MEDS: fentaNYL citrate/PF 100 MCG/2 ML VIAL 25 MCG IVPUSH ×3 (13:19→13:54)
[2024-09-26] MEDS: Lidocaine HCl 1 % MPF 30 ML VIAL SUBCUT (14:10)
== END 2024-09-26 15:59 | disposition home or self-care (01) ==
PROVIDERS: Radiology Diagnostic Radiology; Radiology Vascular & Interventional Radiology; PCP Nurse Practitioner Family; Visit Provider Internal Medicine Gastroenterology
DX: K74.60 Unspecified cirrhosis of liver (principal); E83.19 Other disorders of iron metabolism; R13.10 Dysphagia, unspecified; E11.9 Type 2 diabetes mellitus without complications; I10 Essential (primary) hypertension; E78.5 Hyperlipidemia, unspecified; D64.9 Anemia, unspecified; I25.2 Old myocardial infarction; Z79.82 Long term (current) use of aspirin; Z79.899 Other long term (current) drug therapy
CPT/HCPCS: 36415; 47000; 76942; 80048; 85025; 85610; 85730; 86850; 86900; 86901; 88307; 88313; 99152; 99153; J2003; J2250; J2310; J3010

== ENCOUNTER → 2024-09-26 12:21 | Outpatient (BNV) | payer MEDICARE, SELFPAY | PROVIDERS: PCP Nurse Practitioner Family | DX: K74.60 Unspecified cirrhosis of liver (principal) | CPT/HCPCS: 47000; 76942 ==

== ENCOUNTER 2024-10-10 12:13 | Day surgery (SDC) | payer MEDICARE, SELFPAY ==
--- OUTSIDE RECORDS SUMMARY | 2024-09-21 08:38 | XMS_ITS | Clinical Summary ---
Author Organization [facility] Address [address] [place] [address] Care Team Providers Care Crew Dispatcher Name Role Phone Ania Browning MD Primary [...] Documents on File Type Date Recorded Patient Advanced Solutions Architect Expl anation Health Care Decision (hx) 03/31/2016 AD CARROLL DIRECTIVE Health Care Decision (hx) 03/31/2016 AD CARROLL DIRECTIVE Health Care Decision (hx) 03/31/2016 AD CARROLL DIRECTIVE Health Care Decision (hx) 03/31/2016 AD CARROLL DIRECTIVE Health Care Decision (hx) 03/31/2016 AD CARROLL DIRECTIVE Care Teams Crew Dispatcher Relationship Specialty Start Date End Date Ania Browning MD PCP - General Internal Medicine 12/02/21
[2024-10-06 11:29] VITALS: BMI 33.8
--- NOTE | 2024-10-09 10:22 | HO.ANESPROP2 ---
Documented by User: Elva Maldonado NP 10/09/24 10:30 HPI - Anesthesia Eval Consult details Narrative: 68yo F for Cystoscopy Bladder Biopsy,BILATERAL Retrograde,Ureteroscopy,with possible stent placement Follows [facility] for CAD s/p stents x 2 (08/2023) - Stable at 04/2024 office visit. OK to proceed per workload, prefer not to hold aspirin Follows [facility] heme for anemia. OK for surgery per 04/2024 office visit (platelets clump, but on recheck 101) Cirrhosis per [facility], no ascites per cardiology office visit. Eval by [facility] 08/2024 - possible early compensated cirrhosis (planning EGD, liver bx) PMFSH Active Problems Active Problems: All Active Problems Renal mass (Acute) Hematuria (Acute) Renal mass of unknown nature (Acute) Prediabetes (Acute) Normochromic normocytic anemia (Acute) Calcium nephrolithiasis (Acute) Abnormal CT scan, kidney (Acute) Gross hematuria (Acute) Anemia (Acute) Low bicarbonate (Acute) Left renal mass (Acute) Cirrhosis of liver (Acute) Obesity (BMI 30-39.9) (Acute) Hypocalcemia (Acute) Thrombocytopenia (Acute) Hypertension (Acute) Transaminitis (Acute) Statin-induced rhabdomyolysis (Acute) CAD (coronary artery disease) (Acute) Proteinuria (Acute) 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) Positive CASA (antinuclear antibody) (Acute) Dysphagia (Acute) Dyslipidemia (Acute) Hx of non-ST elevation myocardial infarction (NSTEMI) (Acute) Atherosclerotic cardiovascular disease (Acute) S/P cardiac catheterization (Acute) Urgency incontinence (Acute) Renal stones (Acute) Past Medical History Medical History Proteinuria 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 Mother No problems noted. Family history of problems with anesthesia: No Surgical History Surgical History Hx of heart artery stent Hx of lithotripsy S/P cardiac catheterization Hx laparoscopic cholecystectomy History of carpal tunnel release H/O colonoscopy Hx of cataract extraction Hx of cystoscopy History of Problems with Anesthesia: No Social History Social History Household Members: None Housing: Apartment Are you a primary critical care clinical nurse specialist to a significant other at home: No Do you presently have visiting nurse or other home services: No Alcohol intake: former Patient Tobacco Use Status: Never used Tobacco e-Cigarette/Vaping Use: Never Used Second Hand Smoke Exposure: No Have you been hit, kicked, punched, or otherwise hurt by someone within the past year? If so, by whom?: No Are you DNR?: No Advance Directives: No Advance Directives Information Provided: Yes Poor oral hygiene: Yes service: No Current occupational status: employed Current occupation: [employer] Current occupational exposures/hazards: No Cognitive needs: No Hearing needs: No Vision needs: No Meds Allergies Allergy/AdvReac Type Severity Reaction Status Date / Time peach [PEACH] Allergy Intermediate DIFFICULTY Verified 10/10/24 12:51 BREATHING Exam Height,Weight and Vital Signs: Height 5 ft Weight 78.471 kg Pertinent Lab Results Pertinent Lab Results: Laboratory Tests 09/26/24 12:04 WBC 6.7 Hgb 12.1 Hct 37.6 Sodium 137 Potassium 5.1 Chloride 106 Carbon Dioxide 21 L BUN 18 H Creatinine 0.91 Laboratory Tests 04/13/24 10:55 Plt Count ,Citrate 101 L Narrative Narrative: EKG 05/2024 Vent. Rate : 097 BPM Atrial Rate : 097 BPM P-R Int : 212 ms QRS Dur : 128 ms QT Int : 384 ms P-R-T Axes : 032 -16 018 degrees QTc Int : 487 ms Sinus rhythm with 1st degree A-V block Right bundle branch block Abnormal ECG When compared with ECG of 02-SEP-2022 14:15, No significant change was found EKG 08/2023 (during [facility] admit with NSTEMI) Ventricular Rate: 68 BPM Atrial Rate: 68 BPM P-R Interval: 206 ms QRS Duration: 118 ms Q-T Interval: 414 ms QTC Calculation(Bazett): 440 ms P [place]: 41 degrees R [place]: 17 degrees T [place]: 36 degrees Normal sinus rhythm Low voltage QRS complexes in limb leads Right bundle branch block Septal infarct , age undetermined T wave abnormality, consider lateral ischemia Abnormal ECG When compared with ECG of 26-AUG-2023 08:12, Septal infarct is now Present Confirmed by Yobany Stinson ([id number]) on 08/27/2023 8:45:12 AM cardiac catheterization 08/2023. Proximal LAD with 95% stenosis status post drug-eluting stent. Patent stent in the circumflex. Mid RCA with 60% stenosis. ECHO 08/2023 Summary The left ventricle is poorly visualized despite contrast enhancement. The apical views are foreshortened. The left ventricular size is normal. The left ventricular wall thickness is mildly increased. The LV systolic function is normal . The left ventricular ejection fraction is 60-65 %. No obvious wall motion abnormalities seen on limited views. Left ventricular filling pressures are indeterminate. The left atrium is mildly dilated. The aortic valve is trileaflet . The aortic valve appears mildly calcified. There is no significant aortic stenosis. There is no aortic regurgitation. There is mild mitral annular calcification. The mitral valve opening is normal. There is mild mitral regurgitation. The right ventricle is normal in size. Right ventricular systolic function appears preserved. Comparison No prior study available for comparison. 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 Mother No problems noted. Surgical History Surgical History Hx of heart artery stent Hx of lithotripsy S/P cardiac catheterization Hx laparoscopic cholecystectomy History of carpal tunnel release H/O colonoscopy Hx of cataract extraction Hx of cystoscopy Social History Social History Household Members: None Housing: Apartment Are you a primary critical care clinical nurse specialist to a significant other at home: No Do you presently have visiting nurse or other home services: No Alcohol intake: former Patient Tobacco Use Status: Never used Tobacco e-Cigarette/Vaping Use: Never Used Second Hand Smoke Exposure: No Have you been hit, kicked, punched, or otherwise hurt by someone within the past year? If so, by whom?: No Are you DNR?: No Advance Directives: No Advance Directives Information Provided: Yes Poor oral hygiene: Yes service: No Current occupational status: employed Current occupation: [employer] Current occupational exposures/hazards: No Cognitive needs: No Hearing needs: No Vision needs: No Meds Allergies Allergy/AdvReac Type Severity Reaction Status Date / Time peach [PEACH] Allergy Intermediate DIFFICULTY Verified 10/10/24 12:51 BREATHING Exam Airway Mallampati Class: II TM Dist: <=3cm Neck ROM: Full Loose/Missing/Broken Teeth: Yes, Upper and Lower Heart: CAD, as above. OK. Lungs: ok Assessment and Plan Assessment Anesthesia Assessment: Anesthesia Plan Discussed Final Anesthetic Review NPO: Yes ASA Class: IV Final Preanesthetic Review: No Changes in Pt Med Stat, Meds/Allgs Chart Reviewed, Consent Obtained/Reviewed and Anes Risks/Benef Reviewed Patient Risk: Intermediate Procedure Risk: Low Anesthetic Plan Anesthetic Plan: GA (GETA PSR.) and Agree w/ Assess. and Plan Disposition: Standard PACU
[2024-10-10] VITALS (7 sets, daily range): BP systolic 102–154; BP diastolic 52–77; PULSE 65–84; RESP 16–18; TEMP 36.1–36.7; O2SAT 97–100; BMI 32.9
--- NOTE | ~2024-10-10 | FL_ITS ---
EXAMINATION: FL GUIDANCE ONLY HISTORY: cysto bladder bilateral retrograde possible left stent COMPARISON: Correlation is made with a CT of the abdomen with contrast dated 08/23/2024. TECHNIQUE: Fluoroscopy time: 23.5 seconds. Cumulative Dose: 6.35 mGy. Images: 4. FINDINGS: Images demonstrate a small amount of contrast material in the right renal collecting system which is grossly normal. Contrast is also seen in the left renal collecting system which is dilated, but under distended, limiting evaluation. The final film demonstrates a left ureteral stent in place. FL/FL guidance in OR IMPRESSION: Fluoroscopy during procedure. Please see procedure report for additional information. Electronically signed by: Javier Lyn MD 10/10/2024 03:22 PM EDT
[2024-10-10] MEDS: Lactated Ringers 1,000 ML 100 ML IVCONT (12:47)
--- NOTE | 2024-10-10 13:19 | W.PM.OPN ---
Operative Note Operative Note Date of Service: 10/10/24 Narrative: PREOP DIAGNOSIS: Gross hematuria, left staghorn calculus POSTOP DIAGNOSIS: Gross hematuria, cystitis, bladder lesion, left staghorn calculus PROCEDURE: Cystoscopy, bladder biopsies, transurethral resection bladder tumor, Fulguration, bilateral retrogrades, left ureteral stent size 7 [place] x 24 cm SURGEON: Chuyita Ratliff MD ANESTHESIA: General Findings: Flattened Bladder lesion, right lateral wall 1-2 cm Details of procedure: The patient was brought into the operating room placed on the OR table in supine position. Antibiotics confirmed. General anesthesia was administered. The patient was repositioned into lithotomy position, prepped and draped in the usual sterile fashion. Time-out was done per protocol. 2% lidocaine jelly was passed transurethrally. A 22 fr cystoscope was placed transurethrally into the bladder. Urine was sent for culture. The bladder was visualized. The urine was cloudy, bullous erythematous changes consistent with cystitis. On the right lateral wall there was a flattened erythematous lesion approximately 1-2 cm. Random biopsies of the posterior wall were performed with the grasping biopsy forceps., Biopsy #1 near trigone, biopsy #2 from the right posterior lateral wall. The orifices were visualized. Using the cold cup forceps resection of the bladder lesion was performed. Cautery was used for fulguration and hemostasis. The right and left ureteral orifice were along the trigone in normal position. Using the open-ended ureteral catheter retrogrades were performed initially on the right side there were no filling defects or hydronephrosis noted. On the left side retrograde was done the contrast surrounded the staghorn calculus in the renal pelvis. A hydrophilic guidewire was passed through the open-ended into the renal pelvis a double-J stent size 7 [place] by 24 cm was passed over the guidewire. There was noted to be some cloudy and blood-tinged urine effluxing around the stent. The cystoscope was removed. 2% lidocaine urojet was passed transurethrally into the bladder. The patient was brought out of anesthesia and taken to recovery in stable condition. Complications: None Drains: Left ureteral stent 7 [place] by 24 cm
--- NOTE | 2024-10-10 13:19 | MHC.SHP ---
Pre-Procedural Eval Section A - 24 Hr Update-Section A only Date of Service: 10/10/24 The patient is an INPATIENT: No The patient has been examined within 24 hours of the surgical procedure. The History & Physical has been completed within 30 days and I have reviewed it.: Yes Section B - Complete if H&P > 30 days Chief Complaint: Calculus of kidney,hematuria Allergies: Allergies Allergy/AdvReac Type Severity Reaction Status Date / Time peach [PEACH] Allergy Intermediate DIFFICULTY Verified 10/10/24 12:51 BREATHING Plan Diagnosis/Plan: Unchanged I have reviewed the history and physical and performed a pertinent physical examination on my patient. No changes have occurred unless specified. Persistent Intermittent gross hematuria. History of nephrolithiasis. Left staghorn calculus-1.6 x 0.5 x 1.9 cm, Discussed further evaluation with cystoscopy possible bladder biopsy, bilateral retrogrades, left ureteroscopy possible laser lithotripsy, left ureteral stent. Risks discussed included but not limited to, possible need to repeat procedure if stone is not completely fragmented, Irritative voiding symptoms, bladder spasms, urgency, blood in urine. Rescults: MRI - 09/24/24-Kidneys: There is scarring at the lower pole of the right kidney. There is hypointensity in the left renal collecting system corresponding to the calculus noted on CT. There is moderate inflammation about the left renal pelvis with enhancement of the schmidt of the renal pelvis and proximal ureter as noted on CT. No left renal mass is identified to correspond to the abnormality seen on prior CT. Time Spent With Patient Time: Total time managing care of this patient today ____ minutes.
[2024-10-10 14:25] LABS: Creatinine Clr Calc Pharmacy 49.1; Estimated Glomerular Filt Rate 55
== END 2024-10-10 16:11 | disposition home or self-care (01) ==
PROVIDERS: PCP Nurse Practitioner Family; Visit Provider Urology
PROC: (CPT 52234; principal; 2024-10-10 13:40)
DX: N20.0 Calculus of kidney (principal); N32.9 Bladder disorder, unspecified; R82.79 Other abnormal findings on microbiological examination of urine; N30.01 Acute cystitis with hematuria; N30.21 Other chronic cystitis with hematuria
CPT/HCPCS: 52234; 52204; 52332; 36415; 82565; 87086; 88305; C1769; C2617; J1956; J2003; J2405; J2704; J3010; Q9967

== ENCOUNTER → 2024-10-10 12:13 | Outpatient (BNV) | payer MEDICARE, SELFPAY | PROVIDERS: PCP Nurse Practitioner Family; Visit Provider Urology | DX: N30.21 Other chronic cystitis with hematuria (principal); N32.89 Other specified disorders of bladder; N20.0 Calculus of kidney | CPT/HCPCS: 52234; 52332; 74420 ==

== ENCOUNTER 2024-10-11 14:21 | Emergency (ER) | payer MEDICARE, SELFPAY ==
[2024-10-11 14:25] VITALS: BP 130/88; PULSE 113; RESP 22; TEMP 36.8; O2SAT 95; BMI 32.7
--- NOTE | 2024-10-11 14:27 | ED.GENADULT ---
HPI - General Adult General Chief complaint: Abdominal Pain Stated complaint: Unable to urinate Time Seen by Provider: 10/11/24 15:10 Source: patient Mode of arrival: ambulatory Limitations: no limitations History of Present Illness ED Provider: Dr. Leroy Fischer HPI narrative: 69-year-old female with past medical history significant for coronary artery disease diabetes mellitus, hypertension, hyperlipidemia, thrombocytopenia, staghorn calculus who had a left ureteral stent 7 [place] by 28 cm placed yesterday by Dr. Ratliff. Patient states that after the procedure she was able to urinate without any difficulty. She states that this morning at 04:00 hours she went to the bathroom and was unable to urinate. She states she was unable to urinate all day and eventually developed severe pain in her lower abdomen and came to the emergency department for evaluation. Patient had a bladder scan that revealed catheter was placed by the nursing staff and the patient drained 1200 cc of reddish urine. The patient states that since the stent was placed yesterday she had no abdominal pain. She denied fever or chills. She denied chest pain, shortness of breath, nausea, vomiting or diarrhea. Related Data Previous Rx's ?Medication ?Instructions ?Recorded aspirin 81 mg tablet,delayed 81 mg PO DAILY 90 days #90 tabs 04/21/23 release (Adult Low Dose Aspirin) albuterol sulfate 90 mcg/actuation 2 puff inhalation Q4-6H PRN 05/18/23 aerosol inhaler shortness of breath or wheezing #8.5 grams lisinopril 2.5 mg tablet 2.5 mg PO DAILY #30 tabs 04/17/24 cefuroxime axetil 500 mg tablet 500 mg PO BID 7 days #14 tabs 10/10/24 Allergies Allergy/AdvReac Type Severity Reaction Status Date / Time peach [PEACH] Allergy Intermediate DIFFICULTY Verified 10/11/24 14:26 BREATHING Review of Systems Review of Systems: Yes all other systems are reviewed and are negative [facility] Past Medical History Medical History 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 Mother No problems noted. Social History Social History Household Members: None Housing: Apartment Are you a primary critical care transport nurse to a significant other at home: No Do you presently have visiting nurse or other home services: No Alcohol intake: former Patient Tobacco Use Status: Never used Tobacco Smoked in Last 30 Days: No e-Cigarette/Vaping Use: Never Used Second Hand Smoke Exposure: No Use of substances other than those prescribed or required for medical reasons: No Advance Directives: No Advance Directives Information Provided: Yes service: No Current occupational status: employed Current occupation: [employer] Current occupational exposures/hazards: No Cognitive needs: No Hearing needs: No Vision needs: No Physical Exam ED Vital Signs: Vital Signs - 24 hr 10/11/24 14:25 10/11/24 17:22 Temperature 98.3 F 98.3 F Pulse Rate 113 H 83 Respiratory Rate 22 H 16 Blood Pressure 130/88 122/65 Pulse Oximetry 95 100 Oxygen Delivery Method Room Air Room Air BMI result Body Mass Index 32.7 Initial vital signs revealed an elevated heart rate and elevated respiratory rate otherwise unremarkable Exam: General: Awake, alert in no distress Head: Normocephalic, atraumatic EENT: PERRL, Lids normal, sclera normal, conjunctiva normal, nose normal , ears normal, throat without erythema or exudates Neck: Supple, no adenopathy Lung: breath sounds symmetric, no wheezing, rales or rhonchi Chest: symmetric movement, nontender Heart: regular rate and rhythm, normal S1, S2 no murmurs or rubs Abdomen: soft, non-tender, nondistended, normal bowel sounds Back: no vertebral tenderness, no CVAT Extremities: no deformities, moves all extremities symmetrically, trace to 1+ pitting edema bilaterally symmetric Neuro: Awake, alert, oriented, normal speech, cranial nerves intact, moves all extremities symmetrically Psych: Pleasant, cooperative Course Course Course Narrative: 10/11/24 7300 RAPHAEL Brown This is a Rapid Medical Examination (RME) performed by Sage Marin PA-C in triage. Full HPI, ROS, assessment and treatment plan per primary provider in the Main ED. Hx: 69 yo F 1d s/p uretral stent placement d/tn left staghorn calculus here for eval of urinary retention. has not been able to void since 0430. attempted to call urologist today, did not receive call back. PE/vitals: uncomfortable appearing Plan: labs, UA, bladder scan Medical Decision Making Medical Decision Making MDM Narrative: 69-year-old female with past medical history significant for coronary artery disease diabetes mellitus, hypertension, hyperlipidemia, thrombocytopenia, staghorn calculus who had a left ureteral stent 7 [place] by 28 cm placed yesterday by Dr. Ratliff. Patient states that after the procedure she was able to urinate without any difficulty. She states that this morning at 04:00 hours she went to the bathroom and was unable to urinate. She states she was unable to urinate all day and eventually developed severe pain in her lower abdomen and came to the emergency department for evaluation. Patient had a bladder scan that revealed catheter was placed by the nursing staff and the patient drained 1200 cc of reddish urine. The patient states that since the stent was placed yesterday she had no abdominal pain. She denied fever or chills. She denied chest pain, shortness of breath, nausea, vomiting or diarrhea. Vital signs revealed an elevated heart rate and elevated respiratory rate otherwise remarkable. Physical revealed no significant findings. Differential diagnosis: ?Includes but is not limited to dystonic bladder, adverse reaction to anesthesia, anemia, electrolyte abnormalities Course: My independent interpretation patient's laboratory evaluation is as follows: Normocytic anemia with an H&H of 11.3 and 34.1 with an MCV of 92.4. WBC normal 9200. Elevated chloride 112. Low bicarb 19. Elevated glucose 138. Elevated AST 92. Urinalysis positive for protein, positive for blood, negative for nitrates, positive for leukocyte esterase. Microscopic revealed greater than 20 RBCs, greater than 50 WBCs, 0 2 squamous cells, no bacteria. The patient was found to have a very distended bladder on bladder scan and Dixon catheter was placed by nursing. Approximately, 1200 cc of right his urine was drained from the patient's bladder and the patient's abdominal pain resolved 18:22 I did discuss the patient's presentation with the covering urologist, Dr. Salcido. He recommended sending the patient home with the catheter in place. You recommended that the patient paste a blue cap on for 4 hours then empty the bladder and then recap the bladder. He is to have the Dixon bag on overnight. Patient will follow up with Urology for further treatment. Patient was given printed and verbal instructions and discharged home. Admission/Observation Consideration of admission/observation: Escalation of care including admission/observation considered (Yes) Consult Healthcare Provider Management of the patient was discussed with: Newspaper Illustrator (Urologist, Dr. Salcido) Lab Data MDM Lab Attestation statement: I reviewed the patient's lab results. 10/11/24 15:05 10/11/24 14:35 Labs: Lab Results 10/11/24 10/11/24 10/11/24 Range/Units 14:35 15:05 15:19 WBC 9.2 (4.8-10.8) X10*3/uL RBC 3.69 L (4.20-5.50) X10*6/uL Hgb 11.3 L (12.0-16.0) g/dl Hct 34.1 L (37.0-47.0) % MCV 92.4 (80.0-98.0) fL MCH 30.6 (27.0-33.0) pg MCHC 33.1 (31.0-35.0) g/dl RDW 17.6 H (11.0-16.0) % Plt Count TNP MPV Not Reportable Immature Gran % (Auto) 0.5 H (0.0-0.4) % Neut % (Auto) 82.7 H (45-73) % Lymph % (Auto) 8.8 L (20-40) % [place] % (Auto) 7.0 (2-11) % Eos % (Auto) 0.7 (0-4) % Baso % (Auto) 0.3 (0-2) % Lymph # (Auto) 0.8 L (1.2-4.9) X10*3/uL [place] # (Auto) 0.7 (0.1-1.2) X10*3/uL Eos # (Auto) 0.1 (0.0-0.4) X10*3/uL Baso # (Auto) 0.0 (0.0-0.2) X10*3/uL Abs Immat Gran (auto) 0.05 H (0.00-0.03) X10*3/uL Absolute Neuts (auto) 7.6 (2.0-8.3) x10*3/uL Absolute Nucleated RBC 0.000 (0.0-0.012) X10*3/uL Nucleated RBC % (auto) 0.0 (0.0-0.2) /100WBC Smear Tech's Comments VERIFIED Sodium 138 (135-145) mmol/L Potassium 5.1 (3.3-5.1) mmol/L Chloride 112 H (96-108) mmol/L Carbon Dioxide 19 L (22-29) mmol/L Anion Gap 12 (12-20) BUN 15 (9-16) mg/dL Creatinine 1.25 (0.5-1.4) mg/dL Estim Creat Clear Calc 39.2 Estimated GFR 43 Random Glucose 138 H (60-115) mg/dL Calcium 8.8 (8.4-10.2) mg/dL Magnesium 2.0 (1.6-2.6) mg/dL Total Bilirubin 0.9 (0.0-1.0) mg/dL AST 92 H (5-31) U/L ALT 13 (0-31) U/L Alkaline Phosphatase 95 (39-117) U/L Total Protein 8.7 H (6.5-8.0) g/dL Albumin 2.8 L (3.5-5.0) g/dL Urine Color Yellow Urine Appearance Cloudy Urine pH 6.0 (5.0-9.0) Ur Specific [place] 1.015 (1.005-1.025) Urine Protein 300 (3+) H (Neg-Trace) mg/dL Urine Glucose (UA) Negative (Negative) mg/dL Urine Ketones Negative (Negative) mg/dL Urine Blood Large (3+) H (Negative) Urine Nitrite Negative (Negative) Ur Leukocyte Esterase Moderate (2+) H (Negative) Urine RBC >20 H (0-2) /HPF Urine WBC >50 H (0-5) /HPF Ur Squamous Epith Cells 0-2 (0-2) /HPF Urine Bacteria None Seen (None Seen) Hyaline Casts 0-2 (0-2) /LPF External Record Review External record reviewed: Inpatient record Chronic Conditions Patient?s care impacted by: Diabetes, Hypertension and Other (Hyperlipidemia) Discharge Plan Discharge Clinical Impression: Acute urinary retention Patient Disposition: Home, Self-Care Instructions: How to Change a Catheter Drainage Bag (DC), Dixon Catheter Placement and Care (ED) Additional Instructions: Your blood work was unremarkable. You did have white blood cells and red blood cells in your urine but no bacteria. It is important to take the prescription that Dr. Ratliff gave you as prescribed. You should take this medication when you get home. I did discuss your problem with the covering urologist Dr. Salcido. He recommends that during the day you place a blue cap on the end of the Dixon for 4 hours and then drain the Dixon catheter and reapply blood blue cap. Do this during the day while your awake and at night place the large Dixon bag onto drain your bladder. Repeat the 4 hour capping procedure throughout the day until the catheters removed. [facility] will be contacting you within 2 business?days after being discharged from the Emergency?Department.? During this?phone call, they will inform you when your follow up appointment will be scheduled. If you have not received a call from [facility] after 2 business?days, please call the?office at [phone]. Prescriptions: No Action albuterol sulfate 90 mcg/actuation HFA aerosol inhaler 2 puff inhalation Q4-6H PRN (Reason: shortness of breath or wheezing) Qty: 8.5 3RF cefuroxime axetil 500 mg tablet 500 mg PO BID 7 Days Qty: 14 0RF aspirin [Adult Low Dose Aspirin] 81 mg tablet,delayed release (DR/EC) 81 mg PO DAILY 90 Days Qty: 90 1RF lisinopril 2.5 mg tablet 2.5 mg PO DAILY Qty: 30 3RF Print Language: [place]
[2024-10-11 14:56] LABS: Alanine Aminotransferase 13 U/L (0-31); Albumin Level 2.8 g/dL (3.5-5.0); Alkaline Phosphatase 95 U/L (39-117); Anion Gap 12 (12-20); Aspartate Amino Transferase 92 U/L (5-31); Bilirubin Total 0.9 mg/dL (0.0-1.0); Blood Urea Nitrogen 15 mg/dL (9-16); Calcium 8.8 mg/dL (8.4-10.2); Carbon Dioxide 19 mmol/L (22-29); Chloride 112 mmol/L (96-108); Creatinine Clr Calc Pharmacy 39.2; Estimated Glomerular Filt Rate 43; Glucose Random 138 mg/dL (60-115); Potassium 5.1 mmol/L (3.3-5.1); Sodium 138 mmol/L (135-145); Total Protein 8.7 g/dL (6.5-8.0)
[2024-10-11 15:23] LABS: Basophils Percent Auto 0.3 % (0-2); Eosinophils Absolute Auto 0.1 X10*3/uL (0.0-0.4); Eosinophils Percent Auto 0.7 % (0-4); Hematocrit 34.1 % (37.0-47.0); Hemoglobin 11.3 g/dl (12.0-16.0); Imm Gran Abs Auto 0.05 X10*3/uL (0.00-0.03); Imm Gran Pct Auto 0.5 % (0.0-0.4); Lymphocytes Absolute Auto 0.8 X10*3/uL (1.2-4.9); Lymphocytes Percent Auto 8.8 % (20-40); MANUAL DIFF FLAG SCAN; Mean Corpuscular HGB Conc 33.1 g/dl (31.0-35.0); Mean Corpuscular Hemoglobin 30.6 pg (27.0-33.0); Mean Corpuscular Volume 92.4 fL (80.0-98.0); Monocytes Absolute Auto 0.7 X10*3/uL (0.1-1.2); Neutrophils Absolute Auto 7.6 x10*3/uL (2.0-8.3); Neutrophils Percent Auto 82.7 % (45-73); PLT CLUMP 1; Red Blood Count 3.69 X10*6/uL (4.20-5.50); Red Cell Distribution Width 17.6 % (11.0-16.0); SCAN SMEAR FLAG 1
[2024-10-11 15:26] LABS: Appearance Urine Cloudy; Color Urine Yellow; Glucose Urine UA Negative (Negative); Leukocyte Esterase Urine Moderate (2+) (Negative); Nitrite Urine Negative (Negative); Specific Gravity - Urine 1.015 (1.005-1.025); UMIC TRIGGER UACC YES; Urine Blood Large (3+) (Negative); Urine Ketones Negative (Negative); Urine Protein 300 (3+) mg/dL (Neg-Trace)
[2024-10-11 15:27] LABS: White Blood Count 9.2 X10*3/uL (4.8-10.8)
[2024-10-11 15:31] LABS: Bacteria Urine None Seen (None Seen); Hyaline Casts Urine 0-2 /LPF (0-2); RBC Urine >20 /HPF (0-2); Squamous Epithelial Cell Urine 0-2 /HPF (0-2); UACC Culture Trigger YES; WBC Urine >50 /HPF (0-5)
--- NOTE | 2024-10-11 15:32 | ED.FALL ---
HPI - Fall General Chief Complaint: Abdominal Pain Stated Complaint: Unable to urinate Time Seen by Provider: 10/11/24 15:10 History of Present Illness ED Provider: Dr. Leroy Fischer Related Data Previous Rx's ?Medication ?Instructions ?Recorded aspirin 81 mg tablet,delayed 81 mg PO DAILY 90 days #90 tabs 04/21/23 release (Adult Low Dose Aspirin) albuterol sulfate 90 mcg/actuation 2 puff inhalation Q4-6H PRN 05/18/23 aerosol inhaler shortness of breath or wheezing #8.5 grams lisinopril 2.5 mg tablet 2.5 mg PO DAILY #30 tabs 04/17/24 cefuroxime axetil 500 mg tablet 500 mg PO BID 7 days #14 tabs 10/10/24 phenazopyridine 100 mg tablet 100 mg PO .COMPLEX PRN pain 15 10/12/24 (Pyridium) days #45 tabs Allergies Allergy/AdvReac Type Severity Reaction Status Date / Time peach [PEACH] Allergy Intermediate DIFFICULTY Verified 10/11/24 14:26 BREATHING PMFSH Past Medical History Medical History 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 Mother No problems noted. Social History Social History Household Members: None Housing: Apartment Are you a primary day care provider to a significant other at home: No Do you presently have visiting nurse or other home services: No Alcohol intake: former Patient Tobacco Use Status: Never used Tobacco e-Cigarette/Vaping Use: Never Used Second Hand Smoke Exposure: No service: No Current occupational status: employed Current occupation: [employer] Current occupational exposures/hazards: No Cognitive needs: No Hearing needs: No Vision needs: No Physical Exam Vital Signs: Vital Signs: Last Vital Signs Temp 98.3 F 10/11/24 19:06 Pulse 80 10/11/24 19:06 Resp 16 10/11/24 19:06 BP 129/65 10/11/24 19:06 Pulse Ox 100 10/11/24 19:06 O2 Del Method Room Air 10/11/24 19:06 BMI result Body Mass Index 32.7 Vital signs revealed an elevated pulse of 113, elevated heart rate of 22, elevated blood pressure 130/88 otherwise unremarkable Medical Decision Making Medical Decision Making [facility] Narrative: Lab Data 10/11/24 15:05 10/11/24 14:35 Labs: Lab Results 10/11/24 10/11/24 10/11/24 Range/Units 14:35 15:05 15:19 WBC 9.2 (4.8-10.8) X10*3/uL RBC 3.69 L (4.20-5.50) X10*6/uL Hgb 11.3 L (12.0-16.0) g/dl Hct 34.1 L (37.0-47.0) % MCV 92.4 (80.0-98.0) fL MCH 30.6 (27.0-33.0) pg MCHC 33.1 (31.0-35.0) g/dl RDW 17.6 H (11.0-16.0) % Plt Count TNP MPV Not Reportable Immature Gran % (Auto) 0.5 H (0.0-0.4) % Neut % (Auto) 82.7 H (45-73) % Lymph % (Auto) 8.8 L (20-40) % [place] % (Auto) 7.0 (2-11) % Eos % (Auto) 0.7 (0-4) % Baso % (Auto) 0.3 (0-2) % Lymph # (Auto) 0.8 L (1.2-4.9) X10*3/uL [place] # (Auto) 0.7 (0.1-1.2) X10*3/uL Eos # (Auto) 0.1 (0.0-0.4) X10*3/uL Baso # (Auto) 0.0 (0.0-0.2) X10*3/uL Abs Immat Gran (auto) 0.05 H (0.00-0.03) X10*3/uL Absolute Neuts (auto) 7.6 (2.0-8.3) x10*3/uL Absolute Nucleated RBC 0.000 (0.0-0.012) X10*3/uL Nucleated RBC % (auto) 0.0 (0.0-0.2) /100WBC Smear Tech's Comments VERIFIED Sodium 138 (135-145) mmol/L Potassium 5.1 (3.3-5.1) mmol/L Chloride 112 H (96-108) mmol/L Carbon Dioxide 19 L (22-29) mmol/L Anion Gap 12 (12-20) BUN 15 (9-16) mg/dL Creatinine 1.25 (0.5-1.4) mg/dL Estim Creat Clear Calc 39.2 Estimated GFR 43 Random Glucose 138 H (60-115) mg/dL Calcium 8.8 (8.4-10.2) mg/dL Magnesium 2.0 (1.6-2.6) mg/dL Total Bilirubin 0.9 (0.0-1.0) mg/dL AST 92 H (5-31) U/L ALT 13 (0-31) U/L Alkaline Phosphatase 95 (39-117) U/L Total Protein 8.7 H (6.5-8.0) g/dL Albumin 2.8 L (3.5-5.0) g/dL Urine Color Yellow Urine Appearance Cloudy Urine pH 6.0 (5.0-9.0) Ur Specific [place] 1.015 (1.005-1.025) Urine Protein 300 (3+) H (Neg-Trace) mg/dL Urine Glucose (UA) Negative (Negative) mg/dL Urine Ketones Negative (Negative) mg/dL Urine Blood Large (3+) H (Negative) Urine Nitrite Negative (Negative) Ur Leukocyte Esterase Moderate (2+) H (Negative) Urine RBC >20 H (0-2) /HPF Urine WBC >50 H (0-5) /HPF Ur Squamous Epith Cells 0-2 (0-2) /HPF Urine Bacteria None Seen (None Seen) Hyaline Casts 0-2 (0-2) /LPF Discharge Plan Discharge Clinical Impression: Acute urinary retention Patient Disposition: Home, Self-Care Instructions: Dixon Catheter Placement and Care (ED), How to Change a Catheter Drainage Bag (DC) Additional Instructions: Your blood work was unremarkable. You did have white blood cells and red blood cells in your urine but no bacteria. It is important to take the prescription that Dr. Ratliff gave you as prescribed. You should take this medication when you get home. I did discuss your problem with the covering urologist Dr. Salcido. He recommends that during the day you place a blue cap on the end of the Dixon for 4 hours and then drain the Dixon catheter and reapply blood blue cap. Do this during the day while your awake and at night place the large Dixon bag onto drain your bladder. Repeat the 4 hour capping procedure throughout the day until the catheters removed. [facility] will be contacting you within 2 business?days after being discharged from the Emergency?Department.? During this?phone call, they will inform you when your follow up appointment will be scheduled. If you have not received a call from [facility] after 2 business?days, please call the?office at [phone]. Prescriptions: No Action albuterol sulfate 90 mcg/actuation HFA aerosol inhaler 2 puff inhalation Q4-6H PRN (Reason: shortness of breath or wheezing) Qty: 8.5 3RF phenazopyridine [Pyridium] 100 mg tablet 100 mg PO .COMPLEX PRN (Reason: pain) 15 Days Qty: 45 0RF Rx Instructions: 100 mg orally BID-TID PRN; cefuroxime axetil 500 mg tablet 500 mg PO BID 7 Days Qty: 14 0RF aspirin [Adult Low Dose Aspirin] 81 mg tablet,delayed release (DR/EC) 81 mg PO DAILY 90 Days Qty: 90 1RF lisinopril 2.5 mg tablet 2.5 mg PO DAILY Qty: 30 3RF Interventions: ED Discharge Assessment Last Done: 10/11/24 19:06 Discharge Date/Time: 10/11/24 19:30 Print Language: Occitan
[2024-10-11 15:34] LABS: SLIDE REVIEW VERIFIED
--- OUTSIDE RECORDS SUMMARY | 2024-10-11 15:35 | XMS_ITS | Clinical Summary ---
Author Organization [facility] Address [address] [place] [address] Care Team Providers Care Bottom Loader Name Role Phone Ania Browning MD Primary Care Provider Surgical History Surgery Date Site/Laterality Comments CARPAL TUNNEL RELEASE 07/26/2008 PROCEDURE: MS NEUROPLASTY &/TRANSPOS MEDIAN NRV CARPAL TUNNE CYSTOSCOPY 10/26/2011 PROCEDURE: MS CYSTOURETHROSCOPY; COMMENT: Dr Sunny Miranda CYSTOSCOPY 03/31/2016 Left PROCEDURE: MS CYSTOURETHROSCOPY; COMMENT: ureteroscopy, laser lithotripsy, stent placement COLONOSCOPY 08/2008 PROCEDURE: HISTORICAL COLONOSCOPY OTHER SURGICAL HISTORY 09/11/2020 PROCEDURE: MS PRQ TRLUML CORONARY STENT W/ANGIO ONE ART/BRNCH [...] Documents on File Type Date Recorded Patient Guide Changer Expl anation Health Care Decision (hx) 03/31/2016 AD CARROLL DIRECTIVE Health Care Decision (hx) 03/31/2016 AD CARROLL DIRECTIVE Health Care Decision (hx) 03/31/2016 AD CARROLL DIRECTIVE Health Care Decision (hx) 03/31/2016 AD CARROLL DIRECTIVE Health Care Decision (hx) 03/31/2016 AD CARROLL DIRECTIVE Care Teams Bottom Loader Relationship Specialty Start Date End Date Ania Browning MD PCP - General Internal Medicine 12/02/21
--- NOTE | 2024-10-11 16:03 | PC.NURSE ---
Pt initially restless and in 10 R flank and lower abd pain; pt states she had a renal stent placed yesterday and hasn't been able to urinate today at all; bladder scan by this RN showed approx 900ml in bladder; made aware; 16FR FC placed per orders with 1,000ml rust-colored cloudy urine out immediately; pt expressed + relief of pain and fell asleep not long after; vss; sample sent to lab; awaiting eval; IV placed; will monitor/tx per orders
[2024-10-11 17:22] VITALS: BP 122/65; PULSE 83; RESP 16; TEMP 36.8; O2SAT 100
[2024-10-11 19:04] VITALS: BP 129/65; PULSE 80; RESP 16; TEMP 36.8; O2SAT 100
[2024-10-11 19:06] VITALS: BP 129/65; PULSE 80; RESP 16; TEMP 36.8; O2SAT 100
== END 2024-10-11 19:30 | disposition home or self-care (01) ==
PROVIDERS: Physician Assistant Medical; Emergency Provider Emergency Medicine Emergency Medical Services; PCP Physician Assistant
DX: R33.9 Retention of urine, unspecified (principal); E11.9 Type 2 diabetes mellitus without complications; I10 Essential (primary) hypertension; E78.5 Hyperlipidemia, unspecified; I25.10 Atherosclerotic heart disease of native coronary artery without angina pectoris; R10.30 Lower abdominal pain, unspecified; D50.8 Other iron deficiency anemias
CPT/HCPCS: 36415; 51702; 51798; 80053; 81001; 83735; 85025; 87086; 99283; 99285

== ENCOUNTER 2024-10-26 08:12 | Outpatient (AMB) | payer MEDICARE, MEDICAID, SELFPAY ==
--- NOTE | 2024-10-26 08:13 | A.OFFVIS_ITS ---
Intake Visit Reasons: bladder bx, BI retrogrades, ureteroscopy F/U Intake Note: Pt presents to the office today for a post op bladder bx,BI retrogrades, ureteroscopy follow up. Urology Meds:none Blood thinners:None Removed 16 fr hylton catheter prior to visit, patient tolerated removal well. Allergies peach (PEACH) Allergy (Intermediate, Verified 10/26/24 08:13) DIFFICULTY BREATHING Medication List - Last Reconciled 10/26/24 by Chuyita Ratliff MD albuterol sulfate 90 mcg/actuation 2 puffs inhalation Q4-6H PRN aspirin (Adult Low Dose Aspirin) 81 mg PO DAILY 90 days lisinopril 2.5 mg PO DAILY HPI Comments Details: 10/26/24--s/p-Cystoscopy, bladder biopsies, transurethral resection bladder tumor, Fulguration, bilateral retrogrades, left ureteral stent size 7 Gabonese x 24 cm-- on 10/10/24 - The patient is a 69-year-old female presenting with nephrolithiasis and hematuria. - Nephrolithiasis: The patient has been monitored for left nephrolithiasis, with a staghorn calculus identified in the left renal pelvis on a CT scan dated 01/04/24, and measured 1.6 x 1.9 cm on a follow-up scan on 08/23/24. - Hematuria: The patient has a history of hematuria and underwent a cystoscopy with bladder biopsy on 10/10/24, path results: chronic cystitis without malignancy. - Urinary retention: Following surgery, the patient experienced urinary retention necessitating catheterization, which was resolved after catheter placement. Urinary Symptoms Review - Urinary retention post-surgery requiring catheterization, resolved after catheter placement. Results - CT scan on 01/04/24: Staghorn calculus in the left renal pelvis. - CT scan on 08/23/24: Staghorn calculus measuring 1.6 x 1.9 cm in the left renal pelvis. - Cystoscopy with bladder biopsy on 10/10/24: Chronic cystitis, negative for malignancy. Discussion Notes I discussed with the patient the findings of the cystoscopy and bladder biopsy, which showed chronic cystitis without malignancy. We reviewed the CT scan results indicating a staghorn calculus in the left renal pelvis. I explained the upcoming shockwave lithotripsy scheduled for November 08 to address the kidney stone. I advised the patient to remain off aspirin until after her throat procedure next week. 09/19/24--Claudia is a 69-year-old female with past medical history significant for coronary artery disease she is scheduled for follow-up due to left nephrolithiasis and follow-up abnormal soft tissue changes, possible lesion in the left kidney. The patient had a CT abdomen with and without IV contrast. Findings consistent with left staghorn calculus and 1.9 cm enhancing suspicious lesion. I have discussed treatment options to consider including left ESWL for the staghorn calculus. Further evaluation of lesion with MRI. Right kidney is atrophic. She complains of persistent blood in the urine. Plan will be for cystoscopy bilateral retrogrades, ureteroscopy. Possible left ureteral stent. Patient to stop aspirin 10-14 days prior to procedure. MRI for further evaluation of suspicious mass left kidney 03/29/24--Claudia is here for fu. She states she continues workup with Hematology and is being referred to Nephrology due to proteinuria. UA - persistent hematuria. She denies dysuria. Will send urine for FISH, discussed further evaluation with cytoscopy bladder biopsies, bilateral retrogrades, possible left ureteroscopy, will get a CT abd/pelvis as well to reevaluate finding on left kidney. 01/05/24--Claudia is a 68-year-old female who was initially evaluated as a New patient on 11/18/23. Here for office cystoscopy. The pt was admitted to [facility] in August for an MN. She states that 2 cardiac stents were placed. She states she had one cardiac stent placed in 2020. She was restarted on Brilinta. She states that she also has low platelets and is scheduled to see Hematology. During hospitalizaion, at [facility] she was told she had kidney stones. She had CT imaging that noted a 1.7 linear calcification of the left renal pelvis and soft tissue changes which may be inflammatory versus neoplastic changes. The patient has had a history of kidney stones and has seen Dr. Salcido in the past. Office cystoscopy- mild erythematous changes. CTAP- 01/04/24--KIDNEYS AND URETERS: There is right renal cortical thinning. The left kidney is normal in size, shape, and attenuation. No hydronephrosis, hydroureter, or calculi seen. There is ill-defined circumferential soft tissue opacity adjacent to the left renal pelvis and the proximal left The left ureteropelvic junction appears narrowed. 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 Mother No problems noted. Social History Household Members: None Housing: Apartment Are you a primary dog day care attendant to a significant other at home: No Do you presently have visiting nurse or other home services: No Alcohol intake: former Patient Tobacco Use Status: Never used Tobacco e-Cigarette/Vaping Use: Never Used Second Hand Smoke Exposure: No service: No Current occupational status: employed Current occupation: [employer] Current occupational exposures/hazards: No Cognitive needs: No Hearing needs: No Vision needs: No Review of Systems Const All systems reviewed & are unremarkable except as noted in HPI and below Reports no additional complaints Eyes Reports no additional complaints ENT Reports no additional complaints Card Reports no additional complaints Resp Reports no additional complaints GI Reports no additional complaints Reports as per HPI Musc Reports no additional complaints Skin/Breast Reports system reviewed and no additional complaints, except as documented Neuro Reports no additional complaints Psych Reports no additional complaints Endo Reports no additional complaints Kobi/Lymph Reports no additional complaints Aller/Immun Reports no additional complaints Results Reviewed Results Reviewed: DD/ EXAMINATION: MR ABDOMEN WITHOUT THEN WITH IV CONTRAST HISTORY: N28.89 - Other specified disorders of kidney and ureter COMPARISON: Correlation is made with a CT of the abdomen dated 08/23/2024. TECHNIQUE: Axial in and out of phase T1-weighted gradient echo, axial diffusion weighted, and axial and coronal HASTE T2 with fat saturation images were obtained through the abdomen. Subsequently, fat suppressed axial and coronal T1-weighted images were obtained after the intravenous administration of 7.5 mL Gadavist. FINDINGS: Liver: The liver demonstrates a nodular contour, consistent with cirrhosis. There is loss of signal intensity within the liver on in phase imaging when compared to out of phase imaging, compatible with iron overload. There is no enhancing liver mass. The hepatic veins are patent. There is a filling defect in the main portal vein, consistent with thrombus. There is no intra- or extrahepatic biliary dilatation. Gallbladder: The patient is status post cholecystectomy. Spleen: The spleen is enlarged. Pancreas: The pancreas is unremarkable. The pancreatic duct is normal in caliber. Adrenals: The adrenal glands are unremarkable. Kidneys: There is scarring at the lower pole of the right kidney. There is hypointensity in the left renal collecting system corresponding to the calculus noted on CT. There is moderate inflammation about the left renal pelvis with enhancement of the schmidt of the renal pelvis and proximal ureter as noted on CT. No left renal mass is identified to correspond to the abnormality seen on prior CT. Lymph nodes: There is no retroperitoneal lymphadenopathy in the upper abdomen. Multiple vascular collaterals are seen in the retroperitoneum. Date of Service: 08/23/24 EXAMINATION: CT ABDOMEN WITHOUT AND WITH CONTRAST CLINICAL INFORMATION: R93.429 COMPARISON: CT urogram 01/04/2024. TECHNIQUE: Contiguous axial thin section helical images of the abdomen were performed before and after the administration of 85 mL of Omnipaque 350 intravenous contrast. The data set was reformatted in the coronal and sagittal planes and reviewed on an independent workstation. This CT examination was performed using dose optimization techniques as appropriate, variously including the following: *Automated exposure control *Adjustment of mA and/or kV according to patient size (this includes techniques or standardized protocols for targeted exams where dose is matched to indication/reason for exam; i.e. extremities or head) *Use of iterative reconstruction technique FINDINGS: LUNG BASES: There is linear type atelectasis both lung bases. There are no effusions. There are no suspicious nodules or consolidations. There is mild cardiac enlargement. There is no pericardial effusion. LIVER, GALLBLADDER, AND BILIARY TREE: Cirrhotic configuration of liver with macro nodularity of the hepatic contour. No suspicious focal lesion. No intra or extra hepatic biliary dilatation. The gallbladder is surgically absent. PANCREAS: Normal without focal lesion. SPLEEN: There is splenomegaly, with the spleen measuring approximately 15.2 cm in AP diameter. ADRENAL GLANDS: Normal. KIDNEYS: RIGHT KIDNEY: The right kidney is atrophic. There is right renal cortical scarring, particularly involving the lower pole. There are no right renal calculi and there is no right hydronephrosis. LEFT KIDNEY: There is compensatory hypertrophy of the left kidney. Within the lateral upper cortex, there is a very subtle hypoattenuating enhancing oval lesion measuring 1.9 x 1.9 x 2.5 cm (series 7, image 78; series 4, image 71). This is a suspicious finding. No additional renal cortical lesions. Within the renal pelvis, there is redemonstration of a staghorn calculus measuring approximately 1.6 x 0.5 x 1.9 cm, with abundant surrounding inflammatory stranding. This has a similar appearance to the prior exam. There is no minimal hydronephrosis, and there is enhancement of the urothelium, likely inflammatory. BOWEL LOOPS: Imaged bowel structures demonstrate mild diverticulosis of the colon, predominantly involving the descending colon. Small bowel is normal. The GE junction, stomach, and duodenum appear normal. LYMPH NODES: None enlarged by size criteria. VASCULAR: Mild to moderate calcific atheromatous disease of the aorta and its branches. There is no aneurysm. OSSEOUS STRUCTURES: No suspicious lytic or blastic bone lesion identified. There is minimal wedging of the inferior endplate of L2, chronic. There are degenerative spinal changes, mild. There is a mild to moderate levoconvex thoracolumbar scoliosis, apex at L2. Scoliosis centered IMPRESSION: 1. Stable staghorn calculus in the left renal pelvis with surrounding pelvic inflammation, and urothelial thin enhancement. Mild hydronephrosis of the left kidney. 2. Subtle oval hypoattenuating lesion in the mid to upper pole cortex of the left kidney measuring 1.9 x 1.9 x 2.5 cm, new from the prior exam. Neoplasm is not excluded. Correlation with ultrasound recommended. 3. Atrophy of the right kidney. No right hydronephrosis or calculus. 4. Hepatic cirrhosis. Splenomegaly. 5. Mild cardiomegaly. Procedure(s): CT abdomen wo/w IV con EXAMINATION: CT ABDOMEN WITHOUT AND WITH CONTRAST CLINICAL INFORMATION: R93.429 COMPARISON: CT urogram 01/04/2024. TECHNIQUE: Contiguous axial thin section helical images of the abdomen were performed before and after the administration of 85 mL of Omnipaque 350 intravenous contrast. The data set was reformatted in the coronal and sagittal planes and reviewed on an independent workstation. This CT examination was performed using dose optimization techniques as appropriate, variously including the following: *Automated exposure control *Adjustment of mA and/or kV according to patient size (this includes techniques or standardized protocols for targeted exams where dose is matched to indication/reason for exam; i.e. extremities or head) *Use of iterative reconstruction technique FINDINGS: LUNG BASES: There is linear type atelectasis both lung bases. There are no effusions. There are no suspicious nodules or consolidations. There is mild cardiac enlargement. There is no pericardial effusion. LIVER, GALLBLADDER, AND BILIARY TREE: Cirrhotic configuration of liver with macro nodularity of the hepatic contour. No suspicious focal lesion. No intra or extra hepatic biliary dilatation. The gallbladder is surgically absent. PANCREAS: Normal without focal lesion. SPLEEN: There is splenomegaly, with the spleen measuring approximately 15.2 cm in AP diameter. ADRENAL GLANDS: Normal. KIDNEYS: RIGHT KIDNEY: The right kidney is atrophic. There is right renal cortical scarring, particularly involving the lower pole. There are no right renal calculi and there is no right hydronephrosis. LEFT KIDNEY: There is compensatory hypertrophy of the left kidney. Within the lateral upper cortex, there is a very subtle hypoattenuating enhancing oval lesion measuring 1.9 x 1.9 x 2.5 cm (series 7, image 78; series 4, image 71). This is a suspicious finding. No additional renal cortical lesions. Within the renal pelvis, there is redemonstration of a staghorn calculus measuring approximately 1.6 x 0.5 x 1.9 cm, with abundant surrounding inflammatory stranding. This has a similar appearance to the prior exam. There is no minimal hydronephrosis, and there is enhancement of the urothelium, likely inflammatory. BOWEL LOOPS: Imaged bowel structures demonstrate mild diverticulosis of the colon, predominantly involving the descending colon. Small bowel is normal. The GE junction, stomach, and duodenum appear normal. LYMPH NODES: None enlarged by size criteria. VASCULAR: Mild to moderate calcific atheromatous disease of the aorta and its branches. There is no aneurysm. OSSEOUS STRUCTURES: No suspicious lytic or blastic bone lesion identified. There is minimal wedging of the inferior endplate of L2, chronic. There are degenerative spinal changes, mild. There is a mild to moderate levoconvex thoracolumbar scoliosis, apex at L2. Scoliosis centered IMPRESSION: 1. Stable staghorn calculus in the left renal pelvis with surrounding pelvic inflammation, and urothelial thin enhancement. Mild hydronephrosis of the left kidney. 2. Subtle oval hypoattenuating lesion in the mid to upper pole cortex of the left kidney measuring 1.9 x 1.9 x 2.5 cm, new from the prior exam. Neoplasm is not excluded. Correlation with ultrasound recommended. 3. Atrophy of the right kidney. No right hydronephrosis or calculus. 4. Hepatic cirrhosis. Splenomegaly. 5. Mild cardiomegaly. Collected: 11/18/23 [facility] Received: 11/19/23 Diagnosis Urine: Non-diangostic. COMMENT: Examination of a monolayer preparation slide shows a hypocellular specimen with red blood cells and occasional inflammatory cells. Clinical History Urinary tract infection Material Received Urine Gross Description Received is 5 cc of cloudy reddish fluid from which a ThinPrep slide is prepared. Date of Service: 01/04/24 CT ABDOMEN AND PELVIS WITHOUT AND WITH CONTRAST CLINICAL INFORMATION: Gross hematuria. COMPARISON: None available. TECHNIQUE: Noncontrast CT of the abdomen and pelvis is performed followed by split bolus contrast-enhanced images using 85 mL Omnipaque 350 contrast. Postcontrast imaging is performed during the combined nephrogram and excretion phase. Sagittal and coronal reformatted images were obtained on the technologist's workstation for both the precontrast and postcontrast phases. This CT examination was performed using dose optimization techniques as appropriate, variously including the following: *Automated exposure control. *Adjustment of mA and/or kV according to patient size (this includes techniques or standardized protocols for targeted exams where dose is matched to indication/reason for exam; i.e. extremities or head). *Use of iterative reconstruction technique. DLP: 1005 mGy-cm FINDINGS: LUNG BASES: There is a very small left pleural effusion. The lung bases are clear. There are coronary artery atherosclerotic calcifications. LIVER, GALLBLADDER, AND BILIARY TREE: The liver is normal in attenuation. There is a lobulated hepatic contour, and there is a prominent caudate lobe, features which may be seen in association with cirrhosis. No focal hepatic lesion or biliary ductal dilatation is present. The gallbladder is surgically absent. PANCREAS: Unremarkable. SPLEEN: There is splenomegaly, with a longitudinal span of 13.5 cm. ADRENAL GLANDS: Unremarkable. KIDNEYS AND URETERS: There is right renal cortical thinning. The left kidney is normal in size, shape, and attenuation. No hydronephrosis, hydroureter, or calculi seen. There is ill-defined circumferential soft tissue opacity adjacent to the left renal pelvis and the proximal left ureter (10:49-57 and 8:36-47). The left ureteropelvic junction appears narrowed (10:49). BLADDER: Unremarkable. GASTROINTESTINAL TRACT: There is mild diverticulosis, without acute diverticulitis. There is no focal bowel wall thickening. No obstruction, free intraperitoneal air or abscess is seen. The vermiform appendix appears normal. ABDOMINAL WALL: No significant hernia is appreciated. LYMPH NODES: There are shotty, nonpathologically enlarged para-aortic and mesenteric lymph nodes. One of the largest of these is located anterior to the upper abdominal aorta (18:36), measuring 1.0 x 0.8 cm. No sizable abdominopelvic lymphadenopathy is seen. VASCULAR: There is moderate aortoiliac atherosclerotic calcification. No abdominal aortic aneurysm or dissection is seen. The left ovarian vein is very prominent (i.e. 10:46-50), with distention and collateral formation. PELVIC VISCERA: The uterus and adnexa are unremarkable. OSSEUS STRUCTURES: There is a moderate lumbar levoscoliosis. There is multi-level thoracolumbar endplate arthropathy. A moderate Schmorl's node seen of the L4 lower endplate. No acute or aggressive osseous finding is noted. IMPRESSION: 1. There is narrowing of the left ureteropelvic junction, and there is ill-defined soft tissue density adjacent to the left renal pelvis and the proximal left ureter. This may be infectious or inflammatory in etiology, and the possibility of a neoplasm such as a transitional cell carcinoma is not excluded. Urology evaluation and management is recommended, with consideration for ureteroscopy. 2. The right kidney shows cortical thinning. 3. No urinary calculus or obstruction is seen. 4. There is prominence of the left ovarian vein, suggesting insufficiency. 5. There is mild diverticulosis, without diverticulitis. 6. There are shotty, nonpathologically enlarged periaortic and mesenteric lymph nodes, as detailed. Recommend management clinical basis. No pathologically enlarged abdominopelvic lymph nodes are seen. 7. There is mild splenomegaly. 8. No aggressive osseous lesion is seen. Assessment & Plan Assessment & Plan (1) Calcium nephrolithiasis: Code(s): N20.0 - Calculus of kidney Category: Medical (2) Hematuria: Code(s): R31.9 - Hematuria, unspecified Category: Medical (3) Cystitis: Code(s): N30.90 - Cystitis, unspecified without hematuria Category: Medical (4) Staghorn calculus: Code(s): N20.0 - Calculus of kidney Category: Medical Plan Plan - Proceed with shockwave lithotripsy on November 08 for the staghorn calculus in the left renal pelvis. - Monitor for any recurrence of urinary retention or hematuria, with re- evaluation if symptoms persist. - Continue to avoid aspirin until after the throat procedure next week. Patient Instructions: The patient had an opportunity to ask questions regarding treatment plan. The patient expressed understanding and agreement with the above treatment plan. The patient is aware they should contact our office by phone for worsening of their current condition or the appearance of new symptoms. Compliance is encouraged with any medications and followup testing that is ordered. It is a privilege to be allowed the opportunity to participate in the urologic care of your patient. If you have any questions or concerns regarding treatment for the above conditions please do not hesitate to contact me. The office telephone contact is [phone]. This note is constructed in part using voice recognition software. While every effort has been made to ensure accuracy barrel inspector tight errors may have been included. Yours sincerely, Chuyita Ratliff MD Scribe Plan - Not visible on output: Patient was informed and verbally consented to the use of an ambient scribe for clinic note documentation during this visit. Coding Level of Care Code Est Pt Level 4 (27504) Complex EM visit Add On G2211 Diagnoses Calcium nephrolithiasis N20.0 Hematuria R31.9 Cystitis N30.90 Staghorn calculus N20.0
--- OUTSIDE RECORDS SUMMARY | 2024-10-26 08:16 | XMS_ITS | Clinical Summary ---
Author Organization [facility] Address [address] [place] [address] Care Team Providers Care Seamstress Fitter Name Role Phone Ania Browning MD Primary Care Provider Surgical History Surgery Date Site/Laterality Comments CARPAL TUNNEL RELEASE 07/26/2008 PROCEDURE: CT NEUROPLASTY &/TRANSPOS MEDIAN NRV CARPAL TUNNE CYSTOSCOPY 10/26/2011 PROCEDURE: CT CYSTOURETHROSCOPY; COMMENT: Dr Sunny Miranda CYSTOSCOPY 03/31/2016 Left PROCEDURE: CT CYSTOURETHROSCOPY; COMMENT: ureteroscopy, laser lithotripsy, stent placement COLONOSCOPY 08/2008 PROCEDURE: HISTORICAL COLONOSCOPY OTHER SURGICAL HISTORY 09/11/2020 PROCEDURE: CT PRQ TRLUML CORONARY STENT W/ANGIO ONE ART/BRNCH [...] Documents on File Type Date Recorded Patient Compressor House Operator Expl anation Health Care Decision (hx) 03/31/2016 AD CARROLL DIRECTIVE Health Care Decision (hx) 03/31/2016 AD CARROLL DIRECTIVE Health Care Decision (hx) 03/31/2016 AD CARROLL DIRECTIVE Health Care Decision (hx) 03/31/2016 AD CRAROLL DIRECTIVE Health Care Decision (hx) 03/31/2016 AD CARROLL DIRECTIVE Care Teams Seamstress Fitter Relationship Specialty Start Date End Date Ania Browning MD PCP - General Internal Medicine 12/02/21
== END 2024-10-26 09:25 | disposition home or self-care (01) ==
PROVIDERS: PCP Nurse Practitioner Family; Visit Provider Urology
DX: N20.0 Calculus of kidney (principal); R31.9 Hematuria, unspecified; N30.90 Cystitis, unspecified without hematuria
CPT/HCPCS: 99214; G2211

== ENCOUNTER → 2024-10-26 08:12 | Outpatient (BNVA) | payer MEDICARE, SELFPAY | PROVIDERS: PCP Nurse Practitioner Family; Visit Provider Urology | DX: N20.0 Calculus of kidney (principal); N30.90 Cystitis, unspecified without hematuria; R31.9 Hematuria, unspecified | CPT/HCPCS: 99212 ==

== ENCOUNTER 2024-11-01 10:08 | Day surgery (SDC) | payer MEDICARE, MEDICAID, SELFPAY ==
--- OUTSIDE RECORDS SUMMARY | 2024-09-26 11:37 | XMS_ITS | Clinical Summary ---
Author Organization [facility] Address [address] [place] [address] Care Team Providers Care Winder Operator Name Role Phone Ania Browning MD Primary Care Provider Surgical History Surgery Date Site/Laterality Comments CARPAL TUNNEL RELEASE 07/26/2008 PROCEDURE: ID NEUROPLASTY &/TRANSPOS MEDIAN NRV CARPAL TUNNE CYSTOSCOPY 10/26/2011 PROCEDURE: ID CYSTOURETHROSCOPY; COMMENT: Dr Sunny Miranda CYSTOSCOPY 03/31/2016 Left PROCEDURE: ID CYSTOURETHROSCOPY; COMMENT: ureteroscopy, laser lithotripsy, stent placement COLONOSCOPY 08/2008 PROCEDURE: HISTORICAL COLONOSCOPY OTHER SURGICAL HISTORY 09/11/2020 PROCEDURE: ID PRQ TRLUML CORONARY STENT W/ANGIO ONE ART/BRNCH [...] Documents on File Type Date Recorded Patient Assurance Auditor Expl anation Health Care Decision (hx) 03/31/2016 AD CARROLL DIRECTIVE Health Care Decision (hx) 03/31/2016 AD CARROLL DIRECTIVE Health Care Decision (hx) 03/31/2016 AD CARROLL DIRECTIVE Health Care Decision (hx) 03/31/2016 AD CARROLL DIRECTIVE Health Care Decision (hx) 03/31/2016 AD CARROLL DIRECTIVE Care Teams Winder Operator Relationship Specialty Start Date End Date Ania Browning MD PCP - General Internal Medicine 12/02/21
--- NOTE | 2024-10-31 12:03 | P.CONAN_ITS ---
Documented by User: Elva Maldonado NP 10/31/24 12:07 HPI - Anesthesia Eval Consult details Narrative: 69yo F for Upper Endoscopy s/p cysto etc 10/10/24 with GA-ETT 7 Chart review prior to cysto: Follows [facility] [place] Cardiology for CAD s/p stents x 2 (08/2023) - Stable at 04/2024 office visit. OK to proceed per workload, prefer not to hold aspirin Follows [facility] [place] heme for anemia. OK for surgery per 04/2024 office visit (platelets clump, but on recheck 101) Cirrhosis per [facility] imaging, no ascites per cardiology office visit. Eval by [facility] GI 08/2024 - possible early compensated cirrhosis (planning EGD, liver bx) PMF Active Problems Active Problems: All Active Problems Staghorn calculus (Acute) Cystitis (Acute) Renal mass (Acute) Hematuria (Acute) Renal mass of unknown nature (Acute) Prediabetes (Acute) Normochromic normocytic anemia (Acute) Calcium nephrolithiasis (Acute) Abnormal CT scan, kidney (Acute) Gross hematuria (Acute) Anemia (Acute) Low bicarbonate (Acute) Left renal mass (Acute) Cirrhosis of liver (Acute) Obesity (BMI 30-39.9) (Acute) Hypocalcemia (Acute) Thrombocytopenia (Acute) Hypertension (Acute) Transaminitis (Acute) Statin-induced rhabdomyolysis (Acute) CAD (coronary artery disease) (Acute) Proteinuria (Acute) 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) Positive CASA (antinuclear antibody) (Acute) Dysphagia (Acute) Dyslipidemia (Acute) Hx of non-ST elevation myocardial infarction (NSTEMI) (Acute) Atherosclerotic cardiovascular disease (Acute) S/P cardiac catheterization (Acute) Urgency incontinence (Acute) Renal stones (Acute) Past Medical History Medical History Proteinuria 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 Mother No problems noted. Family history of problems with anesthesia: No Surgical History Surgical History Hx of heart artery stent Hx of lithotripsy S/P cardiac catheterization Hx laparoscopic cholecystectomy History of carpal tunnel release H/O colonoscopy Hx of cataract extraction Hx of cystoscopy History of Problems with Anesthesia: No Social History Social History Household Members: None Housing: Apartment Are you a primary patient care to a significant other at home: No Do you presently have visiting nurse or other home services: No Alcohol intake: former Patient Tobacco Use Status: Never used Tobacco e-Cigarette/Vaping Use: Never Used Second Hand Smoke Exposure: No Use of substances other than those prescribed or required for medical reasons: No Have you been hit, kicked, punched, or otherwise hurt by someone within the past year? If so, by whom?: No Are you DNR?: No Advance Directives: No Advance Directives Information Provided: Yes Poor oral hygiene: Yes service: No Current occupational status: employed Current occupation: [employer] Current occupational exposures/hazards: No Cognitive needs: No Hearing needs: No Vision needs: No Meds Allergies Allergy/AdvReac Type Severity Reaction Status Date / Time peach (PEACH) Allergy Intermediate DIFFICULTY Verified 11/01/24 10:51 BREATHING Exam Pertinent Lab Results Pertinent Lab Results: Laboratory Tests 10/11/24 10/11/24 14:35 15:05 WBC 9.2 Hgb 11.3 L Hct 34.1 L Sodium 138 Potassium 5.1 Chloride 112 H Carbon Dioxide 19 L BUN 15 Creatinine 1.25 Laboratory Tests 04/13/24 10:55 Plt Count ,Citrate 101 L Narrative Narrative: EKG 05/2024 Vent. Rate : 097 BPM Atrial Rate : 097 BPM P-R Int : 212 ms QRS Dur : 128 ms QT Int : 384 ms P-R-T Axes : 032 -16 018 degrees QTc Int : 487 ms Sinus rhythm with 1st degree A-V block Right bundle branch block Abnormal ECG When compared with ECG of 02-SEP-2022 14:15, No significant change was found EKG 08/2023 (during [facility] admit with NSTEMI) Ventricular Rate: 68 BPM Atrial Rate: 68 BPM P-R Interval: 206 ms QRS Duration: 118 ms Q-T Interval: 414 ms QTC Calculation(Bazett): 440 ms P [place]: 41 degrees R [place]ard: 17 degrees T [place]: 36 degrees Normal sinus rhythm Low voltage QRS complexes in limb leads Right bundle branch block Septal infarct , age undetermined T wave abnormality, consider lateral ischemia Abnormal ECG When compared with ECG of 26-AUG-2023 08:12, Septal infarct is now Present Confirmed by Yobany Stinson ([id number]) on 08/27/2023 8:45:12 AM cardiac catheterization 08/2023. Proximal LAD with 95% stenosis status post drug-eluting stent. Patent stent in the circumflex. Mid RCA with 60% stenosis. ECHO 08/2023 Summary The left ventricle is poorly visualized despite contrast enhancement. The apical views are foreshortened. The left ventricular size is normal. The left ventricular wall thickness is mildly increased. The LV systolic function is normal . The left ventricular ejection fraction is 60-65 %. No obvious wall motion abnormalities seen on limited views. Left ventricular filling pressures are indeterminate. The left atrium is mildly dilated. The aortic valve is trileaflet . The aortic valve appears mildly calcified. There is no significant aortic stenosis. There is no aortic regurgitation. There is mild mitral annular calcification. The mitral valve opening is normal. There is mild mitral regurgitation. The right ventricle is normal in size. Right ventricular systolic function appears preserved. Comparison No prior study available for comparison. 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 Mother No problems noted. Surgical History Surgical History Hx of heart artery stent Hx of lithotripsy S/P cardiac catheterization Hx laparoscopic cholecystectomy History of carpal tunnel release H/O colonoscopy Hx of cataract extraction Hx of cystoscopy Social History Social History Household Members: None Housing: Apartment Are you a primary patient care to a significant other at home: No Do you presently have visiting nurse or other home services: No Alcohol intake: former Patient Tobacco Use Status: Never used Tobacco e-Cigarette/Vaping Use: Never Used Second Hand Smoke Exposure: No Use of substances other than those prescribed or required for medical reasons: No Have you been hit, kicked, punched, or otherwise hurt by someone within the past year? If so, by whom?: No Are you DNR?: No Advance Directives: No Advance Directives Information Provided: Yes Poor oral hygiene: Yes service: No Current occupational status: employed Current occupation: [employer] Current occupational exposures/hazards: No Cognitive needs: No Hearing needs: No Vision needs: No Meds Allergies Allergy/AdvReac Type Severity Reaction Status Date / Time peach (PEACH) Allergy Intermediate DIFFICULTY Verified 11/01/24 10:51 BREATHING Exam Airway Mallampati Class: II (very poor dentition, missing multiple teeth, denies anything loose) TM Dist: >3cm Neck ROM: Full Heart: rrr Lungs: cta Assessment and Plan Assessment Anesthesia Assessment: Anesthesia Plan Discussed Final Anesthetic Review NPO: Yes ASA Class: III Final Preanesthetic Review: No Changes in Pt Med Stat, Meds/Allgs Chart Reviewed and Consent Obtained/Reviewed Patient Risk: Intermediate Procedure Risk: Intermediate Anesthetic Plan Anesthetic Plan: MAC: Disposition: Standard PACU
[2024-11-01 10:44] VITALS: BP 152/65; PULSE 69; RESP 14; TEMP 36.8; O2SAT 100; BMI 33.1
[2024-11-01 11:02] LABS: Glucose, Whole Blood 80 mg/dL (60-115)
[2024-11-01] MEDS: Lactated Ringers 1,000 ML 100 ML IVCONT (11:06)
--- NOTE | 2024-11-01 11:13 | P.HPSUR_ITS ---
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 Positive CASA (antinuclear antibody) Dysphagia Dyslipidemia Hx of non- ST elevation myocardial infarction (NSTEMI) Diabetes CAD (coronary artery disease) Rhabdomyolysis Atherosclerotic cardiovascular disease Obesity Asthma Urgency incontinence Renal s) History of Previous Operations: Relevant previous surgery/procedure and date(s) (Hx of heart artery stent Hx of lithotripsy S/P cardiac catheterization Hx laparoscopic cholecystectomy History of carpal tunnel release H/O colonoscopy Hx of cataract extraction Hx of cystoscopy) Allergies: Allergies Allergy/AdvReac Type Severity Reaction Status Date / Time peach (PEACH) Allergy Intermediate DIFFICULTY Verified 11/01/24 10:51 BREATHING Review of Systems Sugical H&P ROS: Negative: Constitution, Cardiovascular, Respiratory, Neurological, Psychiatric, Hem-Onc, Allergic/Immunologic, Gastrointestinal, Genitourinary, Musculoskeletal, Integumentary, Endocrine and Eyes/Ears/Nose/Throat Exam Surgical H&P Exam: Normal: HEENT, Normal: Heart, Normal: Lungs, Normal: Extr emities, Normal: Abdomen, Normal: Skin and Normal: Neurological Plan Diagnosis/Plan: Unchanged I have reviewed the history and physical and performed a pertinent physical examination on my patient. No changes have occurred unless specified. Time Spent With Patient Time: Total time managing care of this patient today ____ minutes.
--- NOTE | 2024-11-01 11:33 | W.PM.OPN ---
Operative Note Operative Note Date of Service: 11/01/24 Narrative: Procedure Description: EGD Indication: dysphagia Anesthesia: MAC FLEXIBLE TRANSORAL UPPER GASTROINTESTINAL ENDOSCOPY UPPER ENDOSCOPY Consent: Indications for the procedure and potential complications of bleeding, perforation, reaction to medications and missed diagnosis were discussed with the patient and informed consent was obtained. Instrument: Olympus GIF H 190 J mid size upper endoscope Monitoring: Vital signs and clinical assessment, continuous EKG monitoring, Pulse oximetry, Carbon Dioxide monitoring and blood pressure monitoring were done throughout the procedure. Procedure: The patient was placed in the left lateral decubitis position and pre-procedure medications were administered and a bite block was placed. The endoscope was inserted into the mouth and advanced under direct vision to the third part of duodenum. A careful inspection was made as the upper endoscope was withdrawn including a retroflexed examination of the proximal stomach; Findings and interventions are described below. Findings: Larynx:normal Esophagus: GE junction at 38 cm, diaphragm hiatus at 38 cm, normal mucosa-- mild esophagitis, no obvious varices seen. there was a stricture at 20 cm, this was dilated using a wire guided balloon to 11 mm with superficial tears noted. Stomach: patchy erythema with scarring and nodularity . Biopsies were obtained. Grade 2 flap valve on retroflexed examination of the cardia. Duodenum: Normal bulb and descending duodenum, bx taken Intervention: Biopsies as noted above, esophageal dilation Impression/Findings: gastritis esophagitis esophageal stricture PLAN: magic mouthwash for 1 week GERD precautions repeat dilation in 4-8 weeks, if H pylori pos then treat PPI low dose
[2024-11-01 11:39] VITALS: BP 122/58; PULSE 72; RESP 16; TEMP 36.1; O2SAT 95
[2024-11-01 11:54] VITALS: BP 134/67; PULSE 68; RESP 16; TEMP 36.4; O2SAT 97
[2024-11-01] MEDS: Mag&Al/Sim/Diphenhyd/Lidocaine 10 ML ORAL.SUSP PO (12:13)
== END 2024-11-01 13:00 | disposition home or self-care (01) ==
PROVIDERS: PCP Nurse Practitioner Family; Visit Provider Internal Medicine Gastroenterology
PROC: 0DJ08ZZ Inspection of Upper Intestinal Tract, Via Natural or Artificial Opening Endoscopic (ICD-10-PCS; CPT 43235; principal; 2024-11-01 13:20)
DX: K20.80 Other esophagitis without bleeding (principal); K29.60 Other gastritis without bleeding; K22.2 Esophageal obstruction; R13.10 Dysphagia, unspecified; K74.60 Unspecified cirrhosis of liver; E11.9 Type 2 diabetes mellitus without complications; I10 Essential (primary) hypertension; E78.5 Hyperlipidemia, unspecified; I25.2 Old myocardial infarction; D59.19 Other autoimmune hemolytic anemia; Z79.82 Long term (current) use of aspirin; Z79.899 Other long term (current) drug therapy
CPT/HCPCS: 43248; 43239; 82947; 88305; 88313; 88342; C1726; J2003; J2704

== ENCOUNTER → 2024-11-01 10:08 | Outpatient (BNV) | payer MEDICARE, MEDICAID, SELFPAY | PROVIDERS: PCP Nurse Practitioner Family; Visit Provider Internal Medicine Gastroenterology | DX: K22.2 Esophageal obstruction (principal); K20.90 Esophagitis, unspecified without bleeding; K29.70 Gastritis, unspecified, without bleeding; R13.10 Dysphagia, unspecified | CPT/HCPCS: 43239; 43249 ==

== ENCOUNTER 2024-11-06 08:06 | Outpatient (REF) | payer MEDICARE, MEDICAID, SELFPAY ==
--- OUTSIDE RECORDS SUMMARY | 2024-11-06 08:10 | XMS_ITS | Clinical Summary ---
[facility] Organization [facility] Address [address] [place] [address] Care Team Providers Care Division Director Name Role Phone Ania Browning MD Primary Care Provider Surgical History Surgery Date Site/Laterality Comments CARPAL TUNNEL RELEASE 07/26/2008 PROCEDURE: LA NEUROPLASTY &/TRANSPOS MEDIAN NRV CARPAL TUNNE CYSTOSCOPY 10/26/2011 PROCEDURE: LA CYSTOURETHROSCOPY; COMMENT: Dr Sunny Miranda CYSTOSCOPY 03/31/2016 Left PROCEDURE: LA CYSTOURETHROSCOPY; COMMENT: ureteroscopy, laser lithotripsy, stent placement COLONOSCOPY 08/2008 PROCEDURE: HISTORICAL COLONOSCOPY OTHER SURGICAL HISTORY 09/11/2020 PROCEDURE: LA PRQ TRLUML CORONARY STENT W/ANGIO ONE ART/BRNCH [...] Documents on File Type Date Recorded Patient Hand Hose Cutter Expl anation Health Care Decision (hx) 03/31/2016 AD CARROLL DIRECTIVE Health Care Decision (hx) 03/31/2016 AD CARROLL DIRECTIVE Health Care Decision (hx) 03/31/2016 AD CARROLL DIRECTIVE Health Care Decision (hx) 03/31/2016 AD CARROLL DIRECTIVE Health Care Decision (hx) 03/31/2016 AD CARROLL DIRECTIVE Care Teams Division Director Relationship Specialty Start Date End Date Ania Browning MD PCP - General Internal Medicine 12/02/21
== END 2024-11-06 08:07 | disposition home or self-care (01) ==
LOC: HO.MAMMO 08:06
PROVIDERS: PCP Nurse Practitioner Family; Visit Provider Physician Assistant
DX: Z12.31 Encounter for screening mammogram for malignant neoplasm of breast (principal)
CPT/HCPCS: 77063; 77067

== ENCOUNTER → 2024-11-06 09:15 | Outpatient (BNV) | payer MEDICARE, MEDICAID, SELFPAY | PROVIDERS: PCP Nurse Practitioner Family; Visit Provider Internal Medicine | DX: Z12.31 Encounter for screening mammogram for malignant neoplasm of breast (principal) | CPT/HCPCS: 77063; 77067 ==

== ENCOUNTER 2024-11-08 08:08 | Day surgery (SDC) | payer MEDICARE, MEDICAID, SELFPAY ==
[2024-11-06 12:12] VITALS: BMI 33.1
--- NOTE | 2024-11-07 10:04 | HO.ANESPROP2 ---
Documented by User: Elva Maldonado NP 11/07/24 10:05 HPI - Anesthesia Eval Consult details Narrative: 69yo F for Left Lithotripsy ESW s/p Upper Endoscopy 11/01/24 with TIVA s/p cysto etc 10/10/24 with GA-ETT 7 Chart review prior to cysto: [place] [facility] [place] s/p stents x 2 (08/2023) - Stable at 04/2024 office visit. OK to proceed per workload, prefer not to hold aspirin [place] [facility] [place]. OK for surgery per 04/2024 office visit (platelets clump, but on recheck 101) Cirrhosis per [facility] imaging, no ascites per cardiology office visit. Eval by [facility] 08/2024 - possible early compensated cirrhosis (planning EGD, liver bx) PMFSH Active Problems Active Problems: All Active Problems Staghorn calculus (Acute) Cystitis (Acute) Renal mass (Acute) Hematuria (Acute) Renal mass of unknown nature (Acute) Prediabetes (Acute) Normochromic normocytic anemia (Acute) Calcium nephrolithiasis (Acute) Abnormal CT scan, kidney (Acute) Gross hematuria (Acute) Anemia (Acute) Low bicarbonate (Acute) Left renal mass (Acute) Cirrhosis of liver (Acute) Obesity (BMI 30-39.9) (Acute) Hypocalcemia (Acute) Thrombocytopenia (Acute) Hypertension (Acute) Transaminitis (Acute) Statin-induced rhabdomyolysis (Acute) CAD (coronary artery disease) (Acute) Proteinuria (Acute) 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) Positive CASA (antinuclear antibody) (Acute) Dysphagia (Acute) Dyslipidemia (Acute) Hx of non-ST elevation myocardial infarction (NSTEMI) (Acute) Atherosclerotic cardiovascular disease (Acute) S/P cardiac catheterization (Acute) Urgency incontinence (Acute) Renal stones (Acute) Past Medical History Medical History (Updated 11/08/24 @ 08:45 by Nimisha Fung RN) Proteinuria 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 Mother No problems noted. Family history of problems with anesthesia: No Surgical History Surgical History (Updated 11/06/24 @ 12:11 by Sara Shetty RN) History of liver biopsy History of esophagogastroduodenoscopy (EGD) Hx of bilateral cataract extraction Hx of heart artery stent Hx of lithotripsy S/P cardiac catheterization Hx laparoscopic cholecystectomy History of carpal tunnel release H/O colonoscopy Hx of cystoscopy History of Problems with Anesthesia: No Social History Social History Household Members: None Housing: Apartment Are you a primary rn patient care to a significant other at home: No Do you presently have visiting nurse or other home services: No Alcohol intake: former Patient Tobacco Use Status: Never used Tobacco e-Cigarette/Vaping Use: Never Used Second Hand Smoke Exposure: No Have you been hit, kicked, punched, or otherwise hurt by someone within the past year? If so, by whom?: No Are you DNR?: No Advance Directives: No Advance Directives Information Provided: Yes service: No Current occupational status: employed Current occupation: [employer] Current occupational exposures/hazards: No Cognitive needs: No Hearing needs: No Vision needs: No Meds Allergies Allergy/AdvReac Type Severity Reaction Status Date / Time peach (PEACH) Allergy Intermediate DIFFICULTY Verified 11/01/24 10:51 BREATHING Exam Height,Weight and Vital Signs: Height 5 ft Weight 77 kg Pertinent Lab Results Pertinent Lab Results: Laboratory Tests 10/11/24 10/11/24 14:35 15:05 WBC 9.2 Hgb 11.3 L Hct 34.1 L Sodium 138 Potassium 5.1 Chloride 112 H Carbon Dioxide 19 L BUN 15 Creatinine 1.25 Laboratory Tests 04/13/24 10:55 Plt Count ,Citrate 101 L Narrative Narrative: EKG 05/2024 Vent. Rate : 097 BPM Atrial Rate : 097 BPM P-R Int : 212 ms QRS Dur : 128 ms QT Int : 384 ms P-R-T Axes : 032 -16 018 degrees QTc Int : 487 ms Sinus rhythm with 1st degree A-V block Right bundle branch block Abnormal ECG When compared with ECG of 02-SEP-2022 14:15, No significant change was found EKG 08/2023 (during [facility] admit with NSTEMI) Ventricular Rate: 68 BPM Atrial Rate: 68 BPM P-R Interval: 206 ms QRS Duration: 118 ms Q-T Interval: 414 ms QTC Calculation(Bazett): 440 ms P [place]: 41 degrees R [place]: 17 degrees T [place]: 36 degrees Normal sinus rhythm Low voltage QRS complexes in limb leads Right bundle branch block Septal infarct , age undetermined T wave abnormality, consider lateral ischemia Abnormal ECG When compared with ECG of 26-AUG-2023 08:12, Septal infarct is now Present Confirmed by Yobany Stinson ([id number]) on 08/27/2023 8:45:12 AM cardiac catheterization 08/2023. Proximal LAD with 95% stenosis status post drug-eluting stent. Patent stent in the circumflex. Mid RCA with 60% stenosis. ECHO 08/2023 Summary The left ventricle is poorly visualized despite contrast enhancement. The apical views are foreshortened. The left ventricular size is normal. The left ventricular wall thickness is mildly increased. The LV systolic function is normal . The left ventricular ejection fraction is 60-65 %. No obvious wall motion abnormalities seen on limited views. Left ventricular filling pressures are indeterminate. The left atrium is mildly dilated. The aortic valve is trileaflet . The aortic valve appears mildly calcified. There is no significant aortic stenosis. There is no aortic regurgitation. There is mild mitral annular calcification. The mitral valve opening is normal. There is mild mitral regurgitation. The right ventricle is normal in size. Right ventricular systolic function appears preserved. Comparison No prior study available for comparison. 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 Mother No problems noted. Surgical History Surgical History (Updated 11/06/24 @ 12:11 by Sara Shetty RN) History of liver biopsy History of esophagogastroduodenoscopy (EGD) Hx of bilateral cataract extraction Hx of heart artery stent Hx of lithotripsy S/P cardiac catheterization Hx laparoscopic cholecystectomy History of carpal tunnel release H/O colonoscopy Hx of cystoscopy Social History Social History Household Members: None Housing: Apartment Are you a primary rn patient care to a significant other at home: No Do you presently have visiting nurse or other home services: No Alcohol intake: former Patient Tobacco Use Status: Never used Tobacco e-Cigarette/Vaping Use: Never Used Second Hand Smoke Exposure: No Have you been hit, kicked, punched, or otherwise hurt by someone within the past year? If so, by whom?: No Are you DNR?: No Advance Directives: No Advance Directives Information Provided: Yes service: No Current occupational status: employed Current occupation: [employer] Current occupational exposures/hazards: No Cognitive needs: No Hearing needs: No Vision needs: No Meds Allergies Allergy/AdvReac Type Severity Reaction Status Date / Time peach (PEACH) Allergy Intermediate DIFFICULTY Verified 11/01/24 10:51 BREATHING Exam Airway Loose/Missing/Broken Teeth: Upper and Lower Heart: ok. see above. Lungs: ok Assessment and Plan Assessment Anesthesia Assessment: Anesthesia Plan Discussed Final Anesthetic Review NPO: Yes ASA Class: III Final Preanesthetic Review: No Changes in Pt Med Stat, Meds/Allgs Chart Reviewed, Consent Obtained/Reviewed and Anes Risks/Benef Reviewed Patient Risk: High Procedure Risk: Low Anesthetic Plan Anesthetic Plan: GA and Agree w/ Assess. and Plan Disposition: Standard PACU
--- NOTE | ~2024-11-08 | XR_ITS ---
EXAMINATION: XR ABDOMEN 1 VIEW (KUB) HISTORY: preESWL-left COMPARISON: Comparison is made with the prior examination dated 07/24/2020. FINDINGS: Two supine views of the abdomen are submitted. The bowel gas pattern is unremarkable, without evidence of mechanical obstruction. A right nephroureteral stent is seen in place. There is a 5 mm rounded calcification adjacent to the proximal stent. There are surgical clips in the right upper quadrant. There are no abnormal soft tissue masses. There is levoscoliosis and degenerative disc disease of the spine. XR/XR KUB IMPRESSION: Left nephroureteral stent in place. 5 mm calcification adjacent to the proximal portion of the stent. Electronically signed by: Javier Lyn MD 11/08/2024 11:15 AM EDT
[2024-11-08 08:34] VITALS: BP 159/86; PULSE 85; RESP 18; TEMP 36.9; O2SAT 97; BMI 35.7
[2024-11-08] MEDS: Lactated Ringers 1,000 ML 100 ML IVCONT (08:56)
--- NOTE | 2024-11-08 09:50 | P.OP_ITS ---
Operative Note Operative Note Date of Service: 11/08/24 Narrative: PreOperative Diagnosis:? ? Left Renal stone, left ureteral stent present Post Operative Diagnosis:?Left Renal stone. left ureteral stent present Surgeon:?Dr Chuyita Ratliff Anesthesia:? General Indications for procedure: The patient understands there is a risk of bruising or hematoma to the kidney, infection, and stone migration following the procedure and subsequent intervention may be required.? - Imaging 15 x 9 mm stone Procedure: After informed consent was verified the patient was brought to the operating room and placed in a supine position.? Anesthesia was performed per protocol. Safety pause time-out was performed. Imaging was displayed in the room and l aterality confirmed. Left ESWL was performed.?The stone was visualized on both fluoroscopy and ultrasound.? The stone did not appear to be very dense. Shockwave lithotripsy was performed, with a maximum rate of 120 hertz. After the first 300 shocks a pause for 3 minutes was completed.? A total of 2500 shocks to a maximum of power of 18 with a maximum rate of 120 hertz.? Some fragmentation of the stone was appreciated. The patient tolerated the procedure well and was transferred to the recovery area upon completion. Complications: None
--- NOTE | 2024-11-08 09:50 | MHC.SHP ---
Pre-Procedural Eval Section A - 24 Hr Update-Section A only Date of Service: 11/08/24 The patient is an INPATIENT: No The patient has been examined within 24 hours of the surgical procedure. The History & Physical has been completed within 30 days and I have reviewed it.: Yes Section B - Complete if H&P > 30 days Chief Complaint: Calculus of kidney, left staghorn Allergies: Allergies Allergy/AdvReac Type Severity Reaction Status Date / Time peach (PEACH) Allergy Intermediate DIFFICULTY Verified 11/01/24 10:51 BREATHING Plan Diagnosis/Plan: Unchanged I have reviewed the history and physical and performed a pertinent physical examination on my patient. No changes have occurred unless specified. Left ESWL. Discussed risks to include but not limited to, blood in the urine, bruising to the skin, kidney hematoma, possible need for another procedure if a stone fragment obstructs the ureter while passing, possible need to repeat procedure if stone is not completely fragmented. Time Spent With Patient Time: Total time managing care of this patient today ____ minutes.
[2024-11-08 10:51] VITALS: BP 119/69; PULSE 75; RESP 16; TEMP 36.6; O2SAT 97
[2024-11-08 10:56] VITALS: BP 127/71; PULSE 75; RESP 12; O2SAT 98
[2024-11-08 11:00] VITALS: BP 130/74; PULSE 67; RESP 14; O2SAT 97
[2024-11-08 11:05] VITALS: BP 133/76; PULSE 75; RESP 16; TEMP 36.6; O2SAT 98
== END 2024-11-08 13:12 | disposition home or self-care (01) ==
PROVIDERS: PCP Nurse Practitioner Family; Visit Provider Urology
PROC: (CPT 50590; principal; 2024-11-08 10:00)
DX: N20.0 Calculus of kidney (principal); Z96.0 Presence of urogenital implants; R31.9 Hematuria, unspecified; N39.41 Urge incontinence; Z87.442 Personal history of urinary calculi; N26.1 Atrophy of kidney (terminal); R80.9 Proteinuria, unspecified; D59.11 Warm autoimmune hemolytic anemia; I25.10 Atherosclerotic heart disease of native coronary artery without angina pectoris; Z95.5 Presence of coronary angioplasty implant and graft; I25.2 Old myocardial infarction; E11.9 Type 2 diabetes mellitus without complications; M62.82 Rhabdomyolysis; J45.909 Unspecified asthma, uncomplicated; Z79.82 Long term (current) use of aspirin; Z79.899 Other long term (current) drug therapy
CPT/HCPCS: 50590; 74018; J0131; J0690; J1938; J2003; J2704; J3010

== ENCOUNTER → 2024-11-08 08:08 | Outpatient (BNV) | payer MEDICARE, MEDICAID, SELFPAY | PROVIDERS: PCP Nurse Practitioner Family; Visit Provider Urology | DX: N20.0 Calculus of kidney (principal) | CPT/HCPCS: 50590 ==

== ENCOUNTER → 2024-11-08 08:25 | Outpatient (BNV) | payer MEDICARE, MEDICAID, SELFPAY | PROVIDERS: PCP Nurse Practitioner Family; Visit Provider Radiology Diagnostic Radiology | DX: M51.369 Other intervertebral disc degeneration, lumbar region without mention of lumbar back pain or lower extremity pain (principal) | CPT/HCPCS: 74018 ==

== ENCOUNTER 2024-11-20 09:07 | Outpatient (AMB) | payer MEDICARE, MEDICAID, SELFPAY ==
--- OUTSIDE RECORDS SUMMARY | 2024-11-20 09:27 | XMS_ITS | Clinical Summary ---
[facility] Organization [facility] Address [address] [place] [address] Care Team Providers Care Tube Room Cashier Name Role Phone Ania Browning MD Primary Care Provider Surgical History Surgery Date Site/Laterality Comments CARPAL TUNNEL RELEASE 07/26/2008 PROCEDURE: [place] NEUROPLASTY &/TRANSPOS MEDIAN NRV CARPAL TUNNE CYSTOSCOPY 10/26/2011 PROCEDURE: [place] CYSTOURETHROSCOPY; COMMENT: Dr Sunny Miranda CYSTOSCOPY 03/31/2016 Left PROCEDURE: MT CYSTOURETHROSCOPY; COMMENT: ureteroscopy, laser lithotripsy, stent placement COLONOSCOPY 08/2008 PROCEDURE: HISTORICAL COLONOSCOPY OTHER SURGICAL HISTORY 09/11/2020 PROCEDURE: MT PRQ TRLUML CORONARY STENT W/ANGIO ONE ART/BRNCH [...] 5 season) 2024 11/21/2020, 10/24/2020 Influenza Vaccine (#1) 2025 HIB Vaccines Aged Out No longer [...] Documents on File Type Date Recorded Patient Mail Handler Equipment Operator Expl anation Health Care Decision (hx) 03/31/2016 AD CARROLL DIRECTIVE Health Care Decision (hx) 03/31/2016 AD CARROLL DIRECTIVE Health Care Decision (hx) 03/31/2016 AD CARROLL DIRECTIVE Health Care Decision (hx) 03/31/2016 AD CARROLL DIRECTIVE Health Care Decision (hx) 03/31/2016 AD CARROLL DIRECTIVE Care Teams Tube Room Cashier Relationship Specialty Start Date End Date Ania Browning MD PCP - General Internal Medicine 12/02/21
--- NOTE | 2024-11-20 09:31 | AM.OFFVISNUR ---
Intake Visit Reasons: H Pylori Allergies peach (PEACH) Allergy (Intermediate, Verified 11/01/24 10:51) DIFFICULTY BREATHING Nursing Note Patient presents for collection of H Pylori breath test. Patient has been fasting for 1 hour (nothing to eat, drink, no chewing gum or smoking) has not taken any antacid medication for at least 2 weeks and has no allergies to artificial sweeteners.?? Assessment & Plan Assessment & Plan (1) Dysphagia: Code(s): R13.10 - Dysphagia, unspecified Category: Medical Plan Patient presents for collection of H Pylori breath test. Patient has been fasting for 1 hour (nothing to eat, drink, no chewing gum or smoking) has not taken any antacid medication for at least 2 weeks and has no allergies to artificial sweeteners.???This test checks for an overgrowth of bacteria in your stomach. We all have bacteria but some may have more than others. It is treatable. if the test comes back negative there is nothing else to do. If the test result is positive we will treat you with 2 antibiotics and a medication to decrease the acid in your stomach (PPI) for 2 weeks. Two weeks after you have completed the treatment we will retest you to make sure the overgrowth has resolved. Patient Instructions: Process for specimen collection and reason for testing was explained to the patient. Specimen collection. Patient instructed to take a deep breath and then exhale into the blue bag, filling it up as much as possible. Patient instructed to drink a mixture of water and the artificial sweetener with a straw. A 15 minute wait period was observed. Patient instructed to take a deep breath and then exhale into the pink bag, filling it up as much as possible.? Coding Level of Care Code Established Pt Est Pt Level 1 (87950) Patient Type Established Medical Decision Making Straight Forward Diagnoses Dysphagia R13.10
== END 2024-11-20 09:31 | disposition home or self-care (01) ==
LOC: HO.HGI 09:08
PROVIDERS: PCP Nurse Practitioner Family; Visit Provider Internal Medicine Gastroenterology
DX: R13.10 Dysphagia, unspecified (principal)

== ENCOUNTER 2024-11-20 09:07 | Outpatient (REF) | payer MEDICARE, MEDICAID, SELFPAY | END 2024-11-20 09:08 | disposition home or self-care (01) | LOC: HO.LNP 09:07 | PROVIDERS: PCP Nurse Practitioner Family; Visit Provider Internal Medicine Gastroenterology | DX: R74.01 Elevation of levels of liver transaminase levels (principal) | CPT/HCPCS: 83013; 99211 ==

== ENCOUNTER 2024-11-30 08:38 | Outpatient (REF) | payer MEDICARE, SELFPAY ==
--- NOTE | ~2024-11-30 | XR_ITS ---
EXAMINATION: XR LUMBOSACRAL SPINE CLINICAL INFORMATION: M54.9 - Dorsalgia, unspecified COMPARISON: None available. TECHNIQUE: AP and lateral views FINDINGS: Levoconvex rotoscoliosis apex at L2. Multilevel marginal osteophyte formation and endplate sclerosis. No acute cortical disruption. No gross malalignment. Left-sided ureteral stent. Vascular calcifications. No lytic or blastic lesions. Vascular clips right upper quadrant abdomen. XR/XR lumbar spine 2-3V IMPRESSION: Multilevel spondylosis and levoconvex rotoscoliosis. No acute fracture or gross listhesis. Electronically signed by: Dion Iglesias MD 11/30/2024 10:08 AM EDT
== END 2024-11-30 08:39 | disposition home or self-care (01) ==
LOC: HO.HOSX 08:38
PROVIDERS: PCP Nurse Practitioner Family; Visit Provider Physical Medicine & Rehabilitation
DX: M54.50 Low back pain, unspecified (principal); G89.29 Other chronic pain; M16.0 Bilateral primary osteoarthritis of hip; J45.909 Unspecified asthma, uncomplicated; Z79.82 Long term (current) use of aspirin; Z79.899 Other long term (current) drug therapy
CPT/HCPCS: 72100; 99202

== ENCOUNTER 2024-11-30 08:38 | Outpatient (AMB) | payer MEDICARE, SELFPAY ==
--- NOTE | 2024-11-30 08:42 | MHC.OFFVIS ---
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 Patient Reports that she took a fall on 07/03/24 due to slip and fall on ice. She was seen at [facility] 5 days later on 07/08/24 as her pain was not improving. They provided her with a muscle relaxer. At today's visit she states that she did have a fall at the [facility] 06/03, but did not seek treatment. No physical therapy or injections. She states that NSAIDs do help, but with her daily activities it wares off quickly. Patient would like to discuss at home exercises that would help her, she does use a cane/walker to help with her mobility. NO numbness or tingling to report. Allergies peach (PEACH) Allergy (Intermediate, Verified 11/30/24 08:49) DIFFICULTY BREATHING Medication List - Last Reconciled 11/30/24 by Alley Cam MD albuterol sulfate 90 mcg/actuation 2 puffs inhalation Q4-6H PRN aspirin (Adult Low Dose Aspirin) 81 mg PO DAILY 90 days lidocaine HCl 2% (Lidocaine Viscous) 1 appl mucous membrane QID PRN pantoprazole 20 mg PO DAILY HPI Comments Details: Medical records reviewed, see below. Fall in June 2024. She was doing well in terms of back before she fell. She slide on black ice, impact on lower back. No fractures. Still gets daily pain, across the lower back. Needs cane for walking due to pain sometimes. On/off radiation to legs, more right side. No numbness or weakness. But poor balance. No PT yet. She did have injections 30 years ago for lumbar disc herniation. 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 CASA (antinuclear antibody) Dysphagia Dyslipidemia Hx of non-ST elevation myocardial infarction (NSTEMI) CAD (coronary artery disease) Rhabdomyolysis Atherosclerotic cardiovascular disease Obesity Asthma Urgency incontinence Renal stones Surgical History (Updated 11/06/24 @ 12:11 by Sara Shetty RN) History of liver biopsy History of esophagogastroduodenoscopy (EGD) Hx of bilateral cataract extraction Hx of heart artery stent Hx of lithotripsy S/P cardiac catheterization Hx laparoscopic cholecystectomy History of carpal tunnel release H/O colonoscopy Hx of cystoscopy Family History Father No problems noted. Mother No problems noted. Social History Household Members: None Housing: Apartment Are you a primary director critical care to a significant other at home: No Do you presently have visiting nurse or other home services: No Alcohol intake: former Patient Tobacco Use Status: Never used Tobacco e-Cigarette/Vaping Use: Never Used Second Hand Smoke Exposure: No service: No Current occupational status: employed Current occupation: [employer] Current occupational exposures/hazards: No Cognitive needs: No Hearing needs: No Vision needs: No Review of Systems Const All systems reviewed & are unremarkable except as noted in HPI and below Physical Exam Exam Exam: Constitutional: Patient appears to be in no acute distress, well nourished and well developed. Patient was appropriately conversant and oriented. Good historian. MSK: No SI joint tenderness. No GT tenderness. Bilateral leg edema. Neurological: When seated, hip flexion strength 4/5 only, slightly weaker on right side. Knee extension and dorsiflexion appeared 5/5 when seated. Wiggins?s negative bilaterally. Babinski was down going bilaterally. Clonus was negative. Gait is antalgic without loss of balance. Vital Signs: BMI result Body Mass Index 34.4 Results Reviewed Results Reviewed: Ordering Physician: Jc Magaña MD Date of Service: 07/07/24 Procedure(s): XR hip RT w PEL1V Accession Number(s): [id number] cc: Elizabeth Agudelo; Jc Magaña MD~ CLINICAL HISTORY: fall 3 view, pelvis and right hip Comparison: None Findings: No acute fracture or dislocation. Mild bilateral hip osteoarthritis. The soft tissues are unremarkable. IMPRESSION: No acute findings. This document has been electronically signed by: Neetu Gamboa MD on 07/08/2024 00:11:36 Rheumatology: Positive CASA with negative CONOR panel. Repeat CASA is now negative Her smooth muscle was positive which could mean she may have an autoimmune hepatitis and this would explain her CASA. She does have some liver fibrosis noted on liver elastography 12/22/2023. Nephrology: She likely has lupus ,even though its not very typical, which probably is causing her proteinuria even though differentials are quite broad at this point. She has CKD 3 likely from vascular disease. Abdominal MRI 09/24/2024: Visualized bones: There is levoscoliosis and degenerative disc disease of the spine. Assessment & Plan Assessment & Plan (1) Lower back pain: Code(s): M54.50 - Low back pain, unspecified Category: Medical Qualifiers: Back pain laterality: bilateral Chronicity: chronic Sciatica presence: without sciatica Qualified Code(s): M54.50 - Low back pain, unspecified; G89.29 - Other chronic pain (2) Hip osteoarthritis: Code(s): M16.9 - Osteoarthritis of hip, unspecified Category: Medical Qualifiers: Laterality: bilateral Osteoarthritis type: primary Qualified Code(s): M16.0 - Bilateral primary osteoarthritis of hip Plan Lower back pain after fall. But has remote history of lumbar disc herniation. Suspect he also has lumbar facet pain. Recent x-rays did show mild hip OA. No recent lumbar x-rays yet, order placed today. We agreed that the 1st step is to refer her to physical therapy, especially to work on balance and gait. Holding off on referring her for injections especially with her significant past medical history. We may have to be careful with certain medications or injections. Probably wait until it is truly indicated. Assessment and plan discussed with patient, and patient was agreeable. All questions were answered thoroughly. Follow up after 3 months. Alley Cam MD, MANUEL Board Certified, [place] Board [employer] and Rehabilitation (ABPMR) Board Certified, [place] Board of Electrodiagnostic Medicine (ABEM) Orders: Orders PT Evaluation and Treatment Today M54.50 - Low back pain, unspecified XR lumbar spine 2-3V Today M54.9 - Dorsalgia, unspecified Coding Level of Care Code New Pt Level 4 (36915) Diagnoses Chronic bilateral low back pain without sciatica M54.50; G89.29 Back pain laterality: bilateral Chronicity: chronic Sciatica presence: without sciatica Primary osteoarthritis of both hips M16.0 Laterality: bilateral Osteoarthritis type: primary
[2024-11-30 08:51] VITALS: BMI 34.4
--- OUTSIDE RECORDS SUMMARY | 2024-11-30 09:01 | XMS_ITS | Clinical Summary ---
[facility] Organization [facility] Address [address] [place] [address] Care Team Providers Care Landing Scaler Name Role Phone Ania Browning MD Primary Care Provider Surgical History Surgery Date Site/Laterality Comments CARPAL TUNNEL RELEASE 07/26/2008 PROCEDURE: [place] NEUROPLASTY &/TRANSPOS MEDIAN NRV CARPAL TUNNE CYSTOSCOPY 10/26/2011 PROCEDURE: [place] CYSTOURETHROSCOPY; COMMENT: Dr Sunny Miranda CYSTOSCOPY 03/31/2016 Left PROCEDURE: [place] CYSTOURETHROSCOPY; COMMENT: ureteroscopy, laser lithotripsy, stent placement COLONOSCOPY 08/2008 PROCEDURE: HISTORICAL COLONOSCOPY OTHER SURGICAL HISTORY 09/11/2020 PROCEDURE: [place] PRQ TRLUML CORONARY STENT W/ANGIO ONE ART/BRNCH [...] Panel) 04/07/2022 Colorectal Cancer Screening: Colonoscopy 04/07/2022 Falls Risk Assessment 04/07/2022 Hepatitis C Screening 04/07/2022 Osteoporosis Screening (Bone Density Screening) 04/07/2022 Social Influencers of Health Screening 04/07/2022 Diabetes: Annual Urine Albumin-Creatinine Ratio (uACR) 04/19/2022 Diabetes: Blood Sugar Contro l Test (HGBA1C) 04/19/2022 COVID-19 Vaccine (3 - 2023-2 5 season) 2024 11/21/2020, 10/24/2020 Depression Screening 05/10/2024 Influenza Vaccine (#1) 2025 HIB Vaccines Aged [...] Documents on File Type Date Recorded Patient Retort Setter Expl anation Health Care Decision (hx) 03/31/2016 AD CARROLL DIRECTIVE Health Care Decision (hx) 03/31/2016 AD CARROLL DIRECTIVE Health Care Decision (hx) 03/31/2016 AD CARROLL DIRECTIVE Health Care Decision (hx) 03/31/2016 AD CARROLL DIRECTIVE Health Care Decision (hx) 03/31/2016 AD CARROLL DIRECTIVE Care Teams Landing Scaler Relationship Specialty Start Date End Date Ania Browning MD PCP - General Internal Medicine 12/02/21
== END 2024-11-30 09:22 | disposition home or self-care (01) ==
LOC: HO.HOS 08:39
PROVIDERS: PCP Nurse Practitioner Family; Visit Provider Physical Medicine & Rehabilitation
DX: M54.50 Low back pain, unspecified (principal); G89.29 Other chronic pain; M16.0 Bilateral primary osteoarthritis of hip
CPT/HCPCS: 99204

== ENCOUNTER → 2024-11-30 09:18 | Outpatient (BNV) | payer MEDICARE, SELFPAY | PROVIDERS: PCP Nurse Practitioner Family; Visit Provider Radiology Diagnostic Radiology | DX: M47.26 Other spondylosis with radiculopathy, lumbar region (principal) | CPT/HCPCS: 72100 ==

== ENCOUNTER 2024-12-20 11:15 | Outpatient (REF) | payer MEDICARE, OTHER, SELFPAY ==
--- NOTE | ~2024-12-20 | US_ITS ---
EXAMINATION: US KIDNEY BILATERAL HISTORY: N20.0 - Calculus of kidney TECHNIQUE: Real-time grayscale ultrasound imaging of the kidneys was performed and images were reviewed. COMPARISON: Correlation is made with an abdominal ultrasound dated 12/22/2023. FINDINGS: Right kidney: The right kidney measures 7.0 x 4.7 x 4.7 cm. Evaluation is limited by overlying bowel gas. Renal parenchymal echotexture and thickness are grossly normal. There are no definite masses. There is no hydronephrosis or renal calculi. Left Kidney: The left kidney measures 10.5 x 4.7 x 6.7 cm. Renal parenchymal echotexture and thickness are normal. There are no masses. There is a nonobstructing 3 mm calculus in the interpolar region. There is no hydronephrosis. US/US renal BI IMPRESSION: Limited visualization of the right kidney due to bowel gas. 3 mm nonobstructing left renal calculus. Electronically signed by: Javier Lyn MD 12/20/2024 12:15 PM EDT
--- OUTSIDE RECORDS SUMMARY | 2024-12-20 12:13 | XMS_ITS | Clinical Summary ---
[facility] Organization [facility] Address [address] [place] [address] Care Team Providers Care Extract Puller Name Role Phone Ania Browning MD [...] Documents on File Type Date Recorded Patient Delivery Agent Expl anation Health Care Decision (hx) 03/31/2016 AD CARROLL DIRECTIVE Health Care Decision (hx) 03/31/2016 AD CARROLL DIRECTIVE Health Care Decision (hx) 03/31/2016 AD CARROLL DIRECTIVE Health Care Decision (hx) 03/31/2016 AD CARROLL DIRECTIVE Health Care Decision (hx) 03/31/2016 AD CARROLL DIRECTIVE Care Teams Extract Puller Relationship Specialty Start Date End Date Ania Browning MD PCP - General Internal Medicine 12/02/21
== END 2024-12-20 11:16 | disposition home or self-care (01) ==
LOC: HO.HMGCX 11:15
PROVIDERS: PCP Nurse Practitioner Family; Visit Provider Urology
DX: N20.0 Calculus of kidney (principal)
CPT/HCPCS: 76775

== ENCOUNTER → 2024-12-20 11:24 | Outpatient (BNV) | payer MEDICARE, SELFPAY | PROVIDERS: PCP Nurse Practitioner Family; Visit Provider Radiology Diagnostic Radiology | DX: N20.0 Calculus of kidney (principal) | CPT/HCPCS: 76775 ==

== ENCOUNTER 2024-12-26 06:00 | Outpatient (REF) | payer MEDICARE, SELFPAY ==
[2024-12-26 07:50] LABS: Cholesterol 133 mg/dL (<200); HDL Cholesterol 47 mg/dL (>40); Triglycerides 68 mg/dL (<150)
== END 2024-12-26 06:01 | disposition home or self-care (01) ==
LOC: HO.LAB 06:00
PROVIDERS: Absent Provider Urology; PCP Physician Assistant; Visit Provider Internal Medicine
DX: I25.10 Atherosclerotic heart disease of native coronary artery without angina pectoris (principal); N39.0 Urinary tract infection, site not specified; E78.5 Hyperlipidemia, unspecified
CPT/HCPCS: 36415; 80061; 87086; 87088; 87186

== ENCOUNTER 2024-12-27 08:09 | Outpatient (AMB) | payer MEDICARE, SELFPAY ==
[2024-12-27 08:21] VITALS: BP 122/68; PULSE 66
--- NOTE | 2024-12-27 08:21 | MHC.OFFVIS ---
Vital Signs 12/27/24 08:21 Height 5 ft BMI Reason not done Patient refused/unable BP 122/68 Blood Pressure Location Lt brachial Position Sitting Pulse 66 Pulse Source Pulse Oximeter Intake Visit Reasons: 4m follow up Allergies peach (PEACH) Allergy (Intermediate, Verified 11/30/24 08:49) DIFFICULTY BREATHING Medication List - Last Reconciled 12/27/24 by Reid Oliveira MD albuterol sulfate 90 mcg/actuation 2 puffs inhalation Q4-6H PRN aspirin (Adult Low Dose Aspirin) 81 mg PO DAILY 90 days HPI Comments Details: Claudia returns for follow-up regarding coronary artery disease. To recall, in September 2020, she had NSTEMI and underwent circumflex stenting. In 08/2023, again had NSTEMI. She underwent LAD stenting. From the cardiac standpoint, it seems she has been generally doing okay. No clear-cut concerns. No angina. In the past, she also had an admission for rhabdomyolysis. Then at some point, she went back on statins but again came off. The actual timings are not very clear. Currently, not on them. 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 CAAS (antinuclear antibody) Dysphagia Dyslipidemia Hx of non-ST elevation myocardial infarction (NSTEMI) CAD (coronary artery disease) Rhabdomyolysis Atherosclerotic cardiovascular disease Obesity Asthma Urgency incontinence Renal stones Surgical History (Updated 11/06/24 @ 12:11 by Sara Shetty RN) History of liver biopsy History of esophagogastroduodenoscopy (EGD) Hx of bilateral cataract extraction Hx of heart artery stent Hx of lithotripsy S/P cardiac catheterization Hx laparoscopic cholecystectomy History of carpal tunnel release H/O colonoscopy Hx of cystoscopy Family History Father No problems noted. Mother No problems noted. Social History Household Members: None Housing: Apartment Are you a primary health careers instructor to a significant other at home: No Do you presently have visiting nurse or other home services: No Alcohol intake: former Patient Tobacco Use Status: Never used Tobacco e-Cigarette/Vaping Use: Never Used Second Hand Smoke Exposure: No service: No Current occupational status: employed Current occupation: [employer] Current occupational exposures/hazards: No Cognitive needs: No Hearing needs: No Vision needs: No Review of Systems Const Denies weakness ENT Reports dizziness Card Denies chest pain, Denies chest pain with activity, Denies syncope, Denies rapid heart rate, Denies pedal edema, Denies edema, Denies leg edema, Denies lightheadedness, Denies palpitations, Denies dyspnea, Denies dyspnea on exertion and Denies orthopnea Resp Denies cough, Denies dyspnea and Denies dyspnea on exertion GI Denies hematochezia and Denies change in stool character Musc Denies abnormal gait, Denies muscle cramps, Denies muscle weakness, Denies numbness, Denies radiating pain into limb and Denies tingling Neuro Denies abnormal gait, Reports dizziness, Denies syncope, Denies numbness, Denies tingling and Denies weakness Endo Denies palpitations Physical Exam Vital Signs: Last Vital Signs Pulse 66 12/27/24 08:21 BP 122/68 12/27/24 08:21 Const General: comfortable and no acute distress Orientation/consciousness: patient oriented x3 HEENT Other: Unremarkable Head: Yes normal to inspection Neck Neck: Yes normal visual inspection Chest Chest palpation & inspection: normal inspection of the chest Resp Auscultation: clear to auscultation bilaterally Cardio Palpation: normal PMI Heart sounds: S1 normal heart sound present, S2 normal heart sound present, no gallops, Murmur heart sound present systolic II/ and at the right sternal border and no rubs GI Palpation (GI): Soft to palpation Back/Spine/Pelvis Other: unremarkable Skin General skin exam: no rashes or lesions noted Neuro General: patient oriented x3 Extrem General: Yes normal to inspection Psych Mental Status: mental status grossly normal Assessment & Plan Assessment & Plan (1) Atherosclerotic cardiovascular disease: Code(s): I25.10 - Atherosclerotic heart disease of [place] coronary artery without angina pectoris Category: Medical (2) Non-ST elevation AK (NSTEMI): Code(s): I21.4 - Non-ST elevation (NSTEMI) myocardial infarction Category: Medical (3) Cirrhosis of liver: Code(s): K74.60 - Unspecified cirrhosis of liver Category: Medical Qualifiers: Ascites presence: without ascites Hepatic cirrhosis type: unspecified hepatic cirrhosis Qualified Code(s): K74.60 - Unspecified cirrhosis of liver (4) Thrombocytopenia: Code(s): D69.6 - Thrombocytopenia, unspecified Category: Medical Plan Last cardiac catheterization data reviewed from 08/2023. Proximal LAD with 95% stenosis status post drug-eluting stent. Patent stent in the circumflex. Mid RCA with 60% stenosis. Continue long-term Aspirin. She used to be on metoprolol in the past but not taking it anymore. Heart rate/blood pressure seems stable. Otherwise, there is a question of statin induced rhabdomyolysis in the past. Has been back on it intermittently, but not anymore. Her lipids are still quite acceptable. PCSK9 inhibitors discussed in the past, but not interested. With regard to her issues with cirrhosis, continue GI follow-up. With regard to the question of cirrhosis, [facility] notes state that CT scan had shown cirrhosis with splenomegaly. Hepatitis panel was apparently negative. LFTs were elevated. Question of nonalcoholic fatty liver disease. She can follow up with GI. Message sent to them to arrange follow-up. Hematology issues followed by Dr. Artis. Follow up in 6 months. Coding Level of Care Code Est Pt Level 4 (40334) Complex EM visit Add On G2211 Diagnoses Atherosclerotic cardiovascular disease I25.10 Non-ST elevation AK (NSTEMI) I21.4 Cirrhosis of liver without ascites, unspecified hepatic cirrhosis type K74.60 Ascites presence: without ascites Hepatic cirrhosis type: unspecified hepatic cirrhosis Thrombocytopenia D69.6
--- OUTSIDE RECORDS SUMMARY | 2024-12-27 08:32 | XMS_ITS | Encounter Summary ---
Author Organization [facility] Address [address] [place] [address] Care Team Providers Care Disability Coordinator Name Role Phone Ania Browning MD Primary Care Provider Un available Niru Li MD Primary Care Provider + Ania Browning MD Primary Care Provider Un available Encounter Details Date Type Department Care Team Description 06/01/2014 Orders Only Medicine/Pediatrics - [address] [id number] Ania Browning MD Type II or unspecified type diabetes mellitus without mention of complication, uncontrolled (Primary Dx) Social History Tobacco Use Types Packs/Day Years Used Date Smoking Tobacco: Never Smokeless Tobacco: Never Alcohol Use Standard Drinks/Week Comments Yes 0 (1 standard drink = 0.6 oz pur e alcohol) social Sex Assigned at Date Recorded Not on file documented as of this encounter Plan of Treatment Not on file documented as of this encounter Results * (ABNORMAL) MICROALBUMIN/CREATININE, URINE (12/17/2014 11:37 AM EDT) CREAT,RANDOM URINE 173 mg/dL 12/17/2014 4:39 PM EDT [facility] MICROALBUMIN, RANDOM 714.8(H) 0.0 - 29.0 mg/L 12/17/2014 5:04 PM EDT [facility] MICROALB/CRE RATIO RANDOM 413.1(H) <30.0 mg/g 12/17/2014 5:04 PM EDT [facility] 12/17/2014 11:3 7 AM EDT 12/17/2014 11:37 AM EDT Ania Browning MD LAB Performing Organization Address [facility] Co de Phone Number [address] * (ABNORMAL) HEMOGLOBIN A1C (12/17/2014 11:37 AM EDT) Glycosylated Hemoglobin A1C 7.8(H) 4.0 - 6.0 % 12/17/2014 2:19 PM EDT [facility] Comment: HbA1C VALUES MAY NOT ACCURATELY REFLECT MEAN BLOOD GLUCOSE IN PATIENTS WITH HEMOGLOBIN VARIANTS SUCH HbF, HbS. 12/17/2014 11:3 7 AM EDT 12/17/2014 11:37 AM EDT Authorizing Provider Result Kulwant Browning MD LAB Performing Organization Address [facility] Co de Phone Number [address] * (ABNORMAL) LIPID PROFILE (12/17/2014 11:37 AM EDT) Cholesterol 225(H) 0 - 200 mg/dL 12/17/2014 2:52 PM EDT [facility] TRIGLYCERIDES 182(H) 0 - 150 mg/dL 12/17/2014 2:52 PM T [facility] HDL CHOLESTEROL 67 >40 mg/dL 5 2:52 PM T [facility] LDL CALCULATED 122(H) 0 - 100 mg/dL 12/17/2014 2:52 PM T [facility] TC-HDLC RATIO 3 0.0 - 4.4 mg/dL 12/17/2014 2:52 PM EDT [facility] 12/17/2014 11:3 7 AM EDT 12/17/2014 11:37 AM EDT Authorizing Provider Result Kulwant Browning MD LAB Performing Organization Address [facility] Co de Phone Number [address] * (ABNORMAL) BASIC METABOLIC PANEL (12/17/2014 11:37 AM EDT) GLUCOSE 251(H) 70 - 100 mg/dL 12/17/2014 2:52 PM T [facility] Comment: Reference range applicable to fasting specimens only Based on recommendations from the ADA and AACE, the fasting glucose reference range has been changed to 70-100 mg/dL. This change is effective September 23, 2009 BUN 31(H) 5 - 25 mg/dL 12/17/2014 2:52 PM EDT [facility] CREAT 0.9 0.7 - 1.5 mg/dL 12/17/2014 2:52 PM [facility] GFR > 60 >60 12/17/2014 2:52 PM [facility] Comment: If patient is -[place], multiply result by 1.21 Chronic Kidney Disease: < 60 ml/min/1.73 square meters Kidney Failure: < 15 ml/min/1.73 square meters Sodium 137 133 - 145 mEq/L 12/17/2014 2:52 PM EDT [facility] Potassium 4.7 3.5 - 5.5 mEq/L 12/17/2014 2:52 PM [facility] Chloride 100 96 - 108 mEq/L 12/17/2014 2:52 PM [facility] CO2 20.2(L) 21.0 - 32.0 mEq/L 12/17/2014 2:52 PM [facility] CALCIUM 9.8 8.5 - 10.5 mg/dL 12/17/2014 2:52 PM [facility] 12/17/2014 11:3 7 AM EDT 12/17/2014 11:37 AM EDT Ania Browning MD LAB [address] documented in this encounter Visit Diagnoses Diagnosis Type II or unspecified type diabetes mellitus without mention of complication, uncontrolled- Primary documented in this encounter Care Teams Disability Coordinator Relationship Specialty Start Date End Date Ania Browning MD PCP - General Internal Medicine 06/12/11 Niru Li MD [address] [place] [address] PCP - General Internal Medicine 11/17/21 12/01/21 Ania Browning MD PCP - General Internal Medicine 12/02/21 documented as of this encounter
--- OUTSIDE RECORDS SUMMARY | 2024-12-27 08:32 | XMS_ITS | Clinical Summary ---
Author Organization [facility] Address [address] [place] [address] Care Team Providers Care Physician Office Nurse Name Role Phone Ania Browning MD Primary Care Provider Surgical History Surgery Date Site/Laterality Comments CARPAL TUNNEL RELEASE 07/26/2008 PROCEDURE: CA NEUROPLASTY &/TRANSPOS MEDIAN NRV CARPAL TUNNE CYSTOSCOPY 10/26/2011 PROCEDURE: CA CYSTOURETHROSCOPY; COMMENT: Dr Sunny Miranda CYSTOSCOPY 03/31/2016 Left PROCEDURE: CA CYSTOURETHROSCOPY; COMMENT: ureteroscopy, laser lithotripsy, stent placement COLONOSCOPY 08/2008 PROCEDURE: HISTORICAL COLONOSCOPY OTHER SURGICAL HISTORY 09/11/2020 PROCEDURE: CA PRQ TRLUML CORONARY STENT W/ANGIO ONE ART/BRNCH [...] Documents on File Type Date Recorded 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
== END 2024-12-27 08:48 | disposition home or self-care (01) ==
LOC: HO.HCS 08:10
PROVIDERS: PCP Physician Assistant; Visit Provider Internal Medicine
DX: I25.10 Atherosclerotic heart disease of native coronary artery without angina pectoris (principal); I21.4 Non-ST elevation (NSTEMI) myocardial infarction; K74.60 Unspecified cirrhosis of liver; D69.6 Thrombocytopenia, unspecified
CPT/HCPCS: 99214; G2211

== ENCOUNTER → 2024-12-27 08:09 | Outpatient (BNVA) | payer MEDICARE, SELFPAY | PROVIDERS: PCP Physician Assistant; Visit Provider Internal Medicine | DX: I25.10 Atherosclerotic heart disease of native coronary artery without angina pectoris (principal); I25.2 Old myocardial infarction; K74.60 Unspecified cirrhosis of liver; D69.6 Thrombocytopenia, unspecified | CPT/HCPCS: 99212 ==

== ENCOUNTER 2024-12-29 13:19 | Outpatient (AMB) | payer MEDICARE, SELFPAY ==
--- OUTSIDE RECORDS SUMMARY | 2024-12-29 13:21 | XMS_ITS | Clinical Summary ---
Author Organization [facility] Address [address] [place] [address] Care Team Providers Care Offset Press Operator Name Role Phone Ania Browning [...] Documents on File Type Date Recorded Patient Preparer Expl anation Health Care Decision (hx) 03/31/2016 AD CARROLL DIRECTIVE Health Care Decision (hx) 03/31/2016 AD CARROLL DIRECTIVE Health Care Decision (hx) 03/31/2016 AD CARROLL DIRECTIVE Health Care Decision (hx) 03/31/2016 AD CARROLL DIRECTIVE Health Care Decision (hx) 03/31/2016 AD CARROLL DIRECTIVE Care Teams Offset Press Operator Relationship Specialty Start Date End Date Ania Browning MD PCP - General Internal Medicine 12/02/21
--- NOTE | 2024-12-29 13:34 | A.OFFVIS_ITS ---
Intake Visit Reasons: ESWL follow up/KUB/US Intake Note: Patient presents to the office today for ESWL follow up/KUB/US * 11/08 KUB * 12/20 Renal US Urology Meds:none Blood thinners:None PVR:24ml Allergies peach (PEACH) Allergy (Intermediate, Verified 12/29/24 13:36) DIFFICULTY BREATHING HPI Comments Details: 10/26/24--s/p-Cystoscopy, bladder biopsies, transurethral resection bladder tumor, Fulguration, bilateral retrogrades, left ureteral stent size 7 German x 24 cm-- on 10/10/24 - The patient is a 69-year-old female presenting with nephrolithiasis and hematuria. - Nephrolithiasis: The patient has been monitored for left nephrolithiasis, with a staghorn calculus identified in the left renal pelvis on a CT scan dated 01/04/24, and measured 1.6 x 1.9 cm on a follow-up scan on 08/23/24. - Hematuria: The patient has a history of hematuria and underwent a cystoscopy with bladder biopsy on 10/10/24, path results: chronic cystitis without malignancy. - Urinary retention: Following surgery, the patient experienced urinary retention necessitating catheterization, which was resolved after catheter placement. Urinary Symptoms Review - Urinary retention post-surgery requiring catheterization, resolved after catheter placement. Results - CT scan on 01/04/24: Staghorn calculus in the left renal pelvis. - CT scan on 08/23/24: Staghorn calculus measuring 1.6 x 1.9 cm in the left renal pelvis. - Cystoscopy with bladder biopsy on 10/10/24: Chronic cystitis, negative for malignancy. Discussion Notes I discussed with the patient the findings of the cystoscopy and bladder biopsy, which showed chronic cystitis without malignancy. We reviewed the CT scan results indicating a staghorn calculus in the left renal pelvis. I explained the upcoming shockwave lithotripsy scheduled for November 08 to address the kidney stone. I advised the patient to remain off aspirin until after her throat procedure next week. 09/19/24--Claudia is a 69-year-old female with past medical history significant for coronary artery disease she is scheduled for follow-up due to left nephrolithiasis and follow-up abnormal soft tissue changes, possible lesion in the left kidney. The patient had a CT abdomen with and without IV contrast. Findings consistent with left staghorn calculus and 1.9 cm enhancing suspicious lesion. I have discussed treatment options to consider including left ESWL for the staghorn calculus. Further evaluation of lesion with MRI. Right kidney is atrophic. She complains of persistent blood in the urine. Plan will be for cystoscopy bilateral retrogrades, ureteroscopy. Possible left ureteral stent. Patient to stop aspirin 10-14 days prior to procedure. MRI for further evaluation of suspicious mass left kidney 03/29/24--Claudia is here for fu. She states she continues workup with [facility] and is being referred to Nephrology due to proteinuria. UA - persistent hematuria. She denies dysuria. Will send urine for FISH, discussed further evaluation with cytoscopy bladder biopsies, bilateral retrogrades, possible left ureteroscopy, will get a CT abd/pelvis as well to reevaluate finding on left kidney. 01/05/24--Claudia is a 68-year-old female who was initially evaluated as a New patient on 11/18/23. Here for office cystoscopy. The pt was admitted to [facility] in August for an ME. She states that 2 cardiac stents were placed. She states she had one cardiac stent placed in 2020. She was restarted on Brilinta. She states that she also has low platelets and is scheduled to see Hematology. During hospitalizaion, at [facility] she was told she had kidney stones. She had CT imaging that noted a 1.7 linear calcification of the left renal pelvis and soft tissue changes which may be inflammatory versus neoplastic changes. The patient has had a history of kidney stones and has seen Dr. Salcido in the past. Office cystoscopy- mild erythematous changes. CTAP- 01/04/24--KIDNEYS AND URETERS: There is right renal cortical thinning. The left kidney is normal in size, shape, and attenuation. No hydronephrosis, hydroureter, or calculi seen. There is ill-defined circumferential soft tissue opacity adjacent to the left renal pelvis and the proximal left The left ureteropelvic junction appears narrowed. 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 Mother No problems noted. Social History Household Members: None Housing: Apartment Are you a primary wound care center consultant to a significant other at home: No Do you presently have visiting nurse or other home services: No Alcohol intake: former Patient Tobacco Use Status: Never used Tobacco e-Cigarette/Vaping Use: Never Used Second Hand Smoke Exposure: No service: No Current occupational status: employed Current occupation: [employer] Current occupational exposures/hazards: No Cognitive needs: No Hearing needs: No Vision needs: No Results AMB Urinalysis, Automated UA Leukoctes 500 Juju/uL Last Edit by Luz Shelby on 12/29/24 17:20 UA Nitrite Negative Last Edit by Luz Shelby on 12/29/24 17:20 UA Urobilinogen 0.2 mg/dL Last Edit by Luz Shelby on 12/29/24 17:20 UA Protein 15 mg/dL Last Edit by Luz Shelby on 12/29/24 17:20 UA pH 6.0 Last Edit by Luz Shelby on 12/29/24 17:20 UA Blood 200 Will/uL Last Edit by Luz Shelby on 12/29/24 17:20 UA Specific Crescent 1.015 Last Edit by Luz Shelby on 12/29/24 17:20 UA Ketone Negative Last Edit by Luz Shelby on 12/29/24 17:20 UA Bilirubin 0 mg/dL Last Edit by Luz Shelby on 12/29/24 17:20 UA Glucose 0 mg/dL Last Edit by Luz Shelby on 12/29/24 17:20 Results Reviewed Results Reviewed: Date of Service: 12/20/24 Procedure(s): US renal BI Accession Number(s): [id number] cc: Chuyita Ratliff MD; Sandoval Johnston CNP~ EXAMINATION: US KIDNEY BILATERAL HISTORY: N20.0 - Calculus of kidney TECHNIQUE: Real-time grayscale ultrasound imaging of the kidneys was performed and images were reviewed. COMPARISON: Correlation is made with an abdominal ultrasound dated 12/22/2023. FINDINGS: Right kidney: The right kidney measures 7.0 x 4.7 x 4.7 cm. Evaluation is limited by overlying bowel gas. Renal parenchymal echotexture and thickness are grossly normal. There are no definite masses. There is no hydronephrosis or renal calculi. Left Kidney: The left kidney measures 10.5 x 4.7 x 6.7 cm. Renal parenchymal echotexture and thickness are normal. There are no masses. There is a nonobstructing 3 mm calculus in the interpolar region. There is no hydronephrosis. IMPRESSION: Limited visualization of the right kidney due to bowel gas. 3 mm nonobstructing left renal calculus. DD/ EXAMINATION: MR ABDOMEN WITHOUT THEN WITH IV CONTRAST HISTORY: N28.89 - Other specified disorders of kidney and ureter COMPARISON: Correlation is made with a CT of the abdomen dated 08/23/2024. TECHNIQUE: Axial in and out of phase T1-weighted gradient echo, axial diffusion weighted, and axial and coronal HASTE T2 with fat saturation images were obtained through the abdomen. Subsequently, fat suppressed axial and coronal T1-weighted images were obtained after the intravenous administration of 7.5 mL Gadavist. FINDINGS: Liver: The liver demonstrates a nodular contour, consistent with cirrhosis. There is loss of signal intensity within the liver on in phase imaging when compared to out of phase imaging, compatible with iron overload. There is no enhancing liver mass. The hepatic veins are patent. There is a filling defect in the main portal vein, consistent with thrombus. There is no intra- or extrahepatic biliary dilatation. Gallbladder: The patient is status post cholecystectomy. Spleen: The spleen is enlarged. Pancreas: The pancreas is unremarkable. The pancreatic duct is normal in caliber. Adrenals: The adrenal glands are unremarkable. Kidneys: There is scarring at the lower pole of the right kidney. There is hypointensity in the left renal collecting system corresponding to the calculus noted on CT. There is moderate inflammation about the left renal pelvis with enhancement of the schmidt of the renal pelvis and proximal ureter as noted on CT. No left renal mass is identified to correspond to the abnormality seen on prior CT. Lymph nodes: There is no retroperitoneal lymphadenopathy in the upper abdomen. Multiple vascular collaterals are seen in the retroperitoneum. Date of Service: 08/23/24 EXAMINATION: CT ABDOMEN WITHOUT AND WITH CONTRAST CLINICAL INFORMATION: R93.429 COMPARISON: CT urogram 01/04/2024. TECHNIQUE: Contiguous axial thin section helical images of the abdomen were performed before and after the administration of 85 mL of Omnipaque 350 intravenous contrast. The data set was reformatted in the coronal and sagittal planes and reviewed on an independent workstation. This CT examination was performed using dose optimization techniques as appropriate, variously including the following: *Automated exposure control *Adjustment of mA and/or kV according to patient size (this includes techniques or standardized protocols for targeted exams where dose is matched to indication/reason for exam; i.e. extremities or head) *Use of iterative reconstruction technique FINDINGS: LUNG BASES: There is linear type atelectasis both lung bases. There are no effusions. There are no suspicious nodules or consolidations. There is mild cardiac enlargement. There is no pericardial effusion. LIVER, GALLBLADDER, AND BILIARY TREE: Cirrhotic configuration of liver with macro nodularity of the hepatic contour. No suspicious focal lesion. No intra or extra hepatic biliary dilatation. The gallbladder is surgically absent. PANCREAS: Normal without focal lesion. SPLEEN: There is splenomegaly, with the spleen measuring approximately 15.2 cm in AP diameter. ADRENAL GLANDS: Normal. KIDNEYS: RIGHT KIDNEY: The right kidney is atrophic. There is right renal cortical scarring, particularly involving the lower pole. There are no right renal calculi and there is no right hydronephrosis. LEFT KIDNEY: There is compensatory hypertrophy of the left kidney. Within the lateral upper cortex, there is a very subtle hypoattenuating enhancing oval lesion measuring 1.9 x 1.9 x 2.5 cm (series 7, image 78; series 4, image 71). This is a suspicious finding. No additional renal cortical lesions. Within the renal pelvis, there is redemonstration of a staghorn calculus measuring approximately 1.6 x 0.5 x 1.9 cm, with abundant surrounding inflammatory stranding. This has a similar appearance to the prior exam. There is no minimal hydronephrosis, and there is enhancement of the urothelium, likely inflammatory. BOWEL LOOPS: Imaged bowel structures demonstrate mild diverticulosis of the colon, predominantly involving the descending colon. Small bowel is normal. The GE junction, stomach, and duodenum appear normal. LYMPH NODES: None enlarged by size criteria. VASCULAR: Mild to moderate calcific atheromatous disease of the aorta and its branches. There is no aneurysm. OSSEOUS STRUCTURES: No suspicious lytic or blastic bone lesion identified. There is minimal wedging of the inferior endplate of L2, chronic. There are degenerative spinal changes, mild. There is a mild to moderate levoconvex thoracolumbar scoliosis, apex at L2. Scoliosis centered IMPRESSION: 1. Stable staghorn calculus in the left renal pelvis with surrounding pelvic inflammation, and urothelial thin enhancement. Mild hydronephrosis of the left kidney. 2. Subtle oval hypoattenuating lesion in the mid to upper pole cortex of the left kidney measuring 1.9 x 1.9 x 2.5 cm, new from the prior exam. Neoplasm is not excluded. Correlation with ultrasound recommended. 3. Atrophy of the right kidney. No right hydronephrosis or calculus. 4. Hepatic cirrhosis. Splenomegaly. 5. Mild cardiomegaly. Procedure(s): CT abdomen wo/w IV con EXAMINATION: CT ABDOMEN WITHOUT AND WITH CONTRAST CLINICAL INFORMATION: R93.429 COMPARISON: CT urogram 01/04/2024. TECHNIQUE: Contiguous axial thin section helical images of the abdomen were performed before and after the administration of 85 mL of Omnipaque 350 intravenous contrast. The data set was reformatted in the coronal and sagittal planes and reviewed on an independent workstation. This CT examination was performed using dose optimization techniques as appropriate, variously including the following: *Automated exposure control *Adjustment of mA and/or kV according to patient size (this includes techniques or standardized protocols for targeted exams where dose is matched to indication/reason for exam; i.e. extremities or head) *Use of iterative reconstruction technique FINDINGS: LUNG BASES: There is linear type atelectasis both lung bases. There are no effusions. There are no suspicious nodules or consolidations. There is mild cardiac enlargement. There is no pericardial effusion. LIVER, GALLBLADDER, AND BILIARY TREE: Cirrhotic configuration of liver with macro nodularity of the hepatic contour. No suspicious focal lesion. No intra or extra hepatic biliary dilatation. The gallbladder is surgically absent. PANCREAS: Normal without focal lesion. SPLEEN: There is splenomegaly, with the spleen measuring approximately 15.2 cm in AP diameter. ADRENAL GLANDS: Normal. KIDNEYS: RIGHT KIDNEY: The right kidney is atrophic. There is right renal cortical scarring, particularly involving the lower pole. There are no right renal calculi and there is no right hydronephrosis. LEFT KIDNEY: There is compensatory hypertrophy of the left kidney. Within the lateral upper cortex, there is a very subtle hypoattenuating enhancing oval lesion measuring 1.9 x 1.9 x 2.5 cm (series 7, image 78; series 4, image 71). This is a suspicious finding. No additional renal cortical lesions. Within the renal pelvis, there is redemonstration of a staghorn calculus measuring approximately 1.6 x 0.5 x 1.9 cm, with abundant surrounding inflammatory stranding. This has a similar appearance to the prior exam. There is no minimal hydronephrosis, and there is enhancement of the urothelium, likely inflammatory. BOWEL LOOPS: Imaged bowel structures demonstrate mild diverticulosis of the colon, predominantly involving the descending colon. Small bowel is normal. The GE junction, stomach, and duodenum appear normal. LYMPH NODES: None enlarged by size criteria. VASCULAR: Mild to moderate calcific atheromatous disease of the aorta and its branches. There is no aneurysm. OSSEOUS STRUCTURES: No suspicious lytic or blastic bone lesion identified. There is minimal wedging of the inferior endplate of L2, chronic. There are degenerative spinal changes, mild. There is a mild to moderate levoconvex thoracolumbar scoliosis, apex at L2. Scoliosis centered IMPRESSION: 1. Stable staghorn calculus in the left renal pelvis with surrounding pelvic inflammation, and urothelial thin enhancement. Mild hydronephrosis of the left kidney. 2. Subtle oval hypoattenuating lesion in the mid to upper pole cortex of the left kidney measuring 1.9 x 1.9 x 2.5 cm, new from the prior exam. Neoplasm is not excluded. Correlation with ultrasound recommended. 3. Atrophy of the right kidney. No right hydronephrosis or calculus. 4. Hepatic cirrhosis. Splenomegaly. 5. Mild cardiomegaly. ------- Collected: 11/18/23 [facility]: [facility]23 Diagnosis Urine: Non-diangostic. COMMENT: Examination of a monolayer preparation slide shows a hypocellular specimen with red blood cells and occasional inflammatory cells. Clinical History Urinary tract infection Material Received Urine Gross Description Received is 5 cc of cloudy reddish fluid from which a ThinPrep slide is prepared. Date of Service: 01/04/24 CT ABDOMEN AND PELVIS WITHOUT AND WITH CONTRAST CLINICAL INFORMATION: Gross hematuria. COMPARISON: None available. TECHNIQUE: Noncontrast CT of the abdomen and pelvis is performed followed by split bolus contrast-enhanced images using 85 mL Omnipaque 350 contrast. Postcontrast imaging is performed during the combined nephrogram and excretion phase. Sagittal and coronal reformatted images were obtained on the technologist's workstation for both the precontrast and postcontrast phases. This CT examination was performed using dose optimization techniques as appropriate, variously including the following: *Automated exposure control. *Adjustment of mA and/or kV according to patient size (this includes techniques or standardized protocols for targeted exams where dose is matched to indication/reason for exam; i.e. extremities or head). *Use of iterative reconstruction technique. DLP: 1005 mGy-cm FINDINGS: LUNG BASES: There is a very small left pleural effusion. The lung bases are clear. There are coronary artery atherosclerotic calcifications. LIVER, GALLBLADDER, AND BILIARY TREE: The liver is normal in attenuation. There is a lobulated hepatic contour, and there is a prominent caudate lobe, features which may be seen in association with cirrhosis. No focal hepatic lesion or biliary ductal dilatation is present. The gallbladder is surgically absent. PANCREAS: Unremarkable. SPLEEN: There is splenomegaly, with a longitudinal span of 13.5 cm. ADRENAL GLANDS: Unremarkable. KIDNEYS AND URETERS: There is right renal cortical thinning. The left kidney is normal in size, shape, and attenuation. No hydronephrosis, hydroureter, or calculi seen. There is ill-defined circumferential soft tissue opacity adjacent to the left renal pelvis and the proximal left ureter (10:49-57 and 8:36-47). The left ureteropelvic junction appears narrowed (10:49). BLADDER: Unremarkable. GASTROINTESTINAL TRACT: There is mild diverticulosis, without acute diverticulitis. There is no focal bowel wall thickening. No obstruction, free intraperitoneal air or abscess is seen. The vermiform appendix appears normal. ABDOMINAL WALL: No significant hernia is appreciated. LYMPH NODES: There are shotty, nonpathologically enlarged para-aortic and mesenteric lymph nodes. One of the largest of these is located anterior to the upper abdominal aorta (18:36), measuring 1.0 x 0.8 cm. No sizable abdominopelvic lymphadenopathy is seen. VASCULAR: There is moderate aortoiliac atherosclerotic calcification. No abdominal aortic aneurysm or dissection is seen. The left ovarian vein is very prominent (i.e. 10:46-50), with distention and collateral formation. PELVIC VISCERA: The uterus and adnexa are unremarkable. OSSEUS STRUCTURES: There is a moderate lumbar levoscoliosis. There is multi-level thoracolumbar endplate arthropathy. A moderate Schmorl's node seen of the L4 lower endplate. No acute or aggressive osseous finding is noted. IMPRESSION: 1. There is narrowing of the left ureteropelvic junction, and there is ill-defined soft tissue density adjacent to the left renal pelvis and the proximal left ureter. This may be infectious or inflammatory in etiology, and the possibility of a neoplasm such as a transitional cell carcinoma is not excluded. Urology evaluation and management is recommended, with consideration for ureteroscopy. 2. The right kidney shows cortical thinning. 3. No urinary calculus or obstruction is seen. 4. There is prominence of the left ovarian vein, suggesting insufficiency. 5. There is mild diverticulosis, without diverticulitis. 6. There are shotty, nonpathologically enlarged periaortic and mesenteric lymph nodes, as detailed. Recommend management clinical basis. No pathologically enlarged abdominopelvic lymph nodes are seen. 7. There is mild splenomegaly. 8. No aggressive osseous lesion is seen. Assessment & Plan Assessment & Plan Orders: Orders AMB Urinalysis Automated Today Z13.9 - Encounter for screening, unspecified AMB Post Void Residual by ultrasound Today N20.0 - Calculus of kidney Coding
== END 2024-12-29 14:07 | disposition home or self-care (01) ==
LOC: HO.HUSH 13:19
PROVIDERS: PCP Physician Assistant; Visit Provider Urology
DX: Z13.9 Encounter for screening, unspecified (principal)

== ENCOUNTER → 2024-12-29 13:19 | Outpatient (BNVA) | payer MEDICARE, SELFPAY | PROVIDERS: PCP Physician Assistant; Visit Provider Urology | DX: N30.90 Cystitis, unspecified without hematuria (principal); N20.0 Calculus of kidney | CPT/HCPCS: 81003; 99212 ==

== ENCOUNTER 2025-01-01 09:19 | Outpatient (AMB) | payer MEDICARE, SELFPAY ==
[2025-01-01 09:32] VITALS: BP 154/75; PULSE 86
--- NOTE | 2025-01-01 09:32 | A.OFFVIS_ITS ---
Vital Signs 01/01/25 09:32 Height 5 ft BMI Reason not done Patient refused/unable BP 154/75 H Blood Pressure Location Lt brachial Position Sitting Pulse 86 Intake Visit Reasons: 4 mo follow up Intake Note: Claudia presents in the office as a 4 month follow up. CC: She states that the the breath test did not show anything and she is having another procedure on the second. Gas Blender Required: No Allergies peach (PEACH) Allergy (Intermediate, Verified 01/01/25 09:33) DIFFICULTY BREATHING HPI HPI 4 mo follow up: Details: 69 yr old f w hx of autoimmune hemolytic anemia here for f/u for cirrhosis RECAP She was told at [facility] she had cirrhosis, she was there for nstemi and had stents 08/2023 she had fatigue she has been told she has inflammed kidney from stone and following with DR Davison she had trouble swallowing, losing weight since heart attack but steady now--likes junk food neg cologuard 07/03 colonoscopy aged 51 and was nml labs: UA with large blood, CASA was v high, SMA was 63, IgG was high Hep B,C were negative Liver bx-- consistent with AIH IMAGING/Endo: Ba swallow: 03/02 ?stricture at throacic inlet small hernia gastritis EGD 11/01 gastritis esophagitis esophageal stricture no varices dilated to 11 mm with balloon INTERIM: she has noted some improvement with swallowing still has some bloody urine, kidney stone removed no diarrhea, no constipation no rectal bleeding no melena reviewed liver path GENERAL: The patient is frail and nontoxic. VITAL SIGNS:see workflow HEENT: Nonicteric sclerae, PERRLA, EOMI. Oropharynx clear. Moist mucous membranes. Conjunctivae appear well perfused. No thyroid mass. CHEST: Chest wall is nontender. HEART: Regular rate and rhythm without murmurs. LUNGS: Clear to auscultation bilaterally. ABDOMEN: Soft, positive bowel sounds, nontender, no organomegaly.no flank tenderness SKIN: No rash, no excessive bruising, petechiae, or purpura. NEUROLOGIC: Cranial nerves II-XII intact without motor/sensory deficit. 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-- Liver bx consistent with this 2/ dysphagia, stricture as above PLAN: 1/ will get TPMT and if normal then low dose 6 MP, will avoid pred chloe as LFT are not that bad and high risk of developing DM 2/ EGD with dilation--repeat due to stricture 3/ f/u urology for hematuria PFSH Medical History Hx of vertigo Proteinuria 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 Mother No problems noted. Social History Household Members: None Housing: Apartment Are you a primary director of patient care to a significant other at home: No Do you presently have visiting nurse or other home services: No Alcohol intake: former Patient Tobacco Use Status: Never used Tobacco e-Cigarette/Vaping Use: Never Used Second Hand Smoke Exposure: No service: No Current occupational status: employed Current occupation: [employer] Current occupational exposures/hazards: No Cognitive needs: No Hearing needs: No Vision needs: No Physical Exam Vital Signs: Last Vital Signs Pulse 86 01/01/25 09:32 BP 154/75 H 01/01/25 09:32 Assessment & Plan Assessment & Plan (1) Transaminitis: Code(s): R74.01 - Elevation of levels of liver transaminase levels Category: Medical Plan: as above Orders: Orders Prometheus TPMT Enzyme Today R74.01 - Elevation of levels of liver transaminase levels Medications: Discontinued ciprofloxacin HCl Discontinued Reason: Patient no longer taking 250 mg PO Q12H 14 tabs 0RF Coding Level of Care Code Est Pt Level 3 (90957) Diagnoses Transaminitis R74.01
--- OUTSIDE RECORDS SUMMARY | 2025-01-01 10:03 | XMS_ITS | Clinical Summary ---
Author Organization [facility] Address [address] [place] [address] Care Team Providers Care Tax Form Preparer Name Role Phone Ania Browning MD Primary Care Provider Surgical History Surgery Date Site/Laterality Comments CARPAL TUNNEL RELEASE 07/26/2008 PROCEDURE: DC NEUROPLASTY &/TRANSPOS MEDIAN NRV CARPAL TUNNE CYSTOSCOPY 10/26/2011 PROCEDURE: DC CYSTOURETHROSCOPY; COMMENT: Dr Sunny Miranda CYSTOSCOPY 03/31/2016 Left PROCEDURE: DC CYSTOURETHROSCOPY; COMMENT: ureteroscopy, laser lithotripsy, stent placement COLONOSCOPY 08/2008 PROCEDURE: HISTORICAL COLONOSCOPY OTHER SURGICAL HISTORY 09/11/2020 PROCEDURE: DC PRQ TRLUML CORONARY STENT W/ANGIO ONE ART/BRNCH [...] Documents on File Type Date Recorded Patient Pourer Buggy Ladle Expl anation Health Care Decision (hx) 03/31/2016 AD CARROLL DIRECTIVE Health Care Decision (hx) 03/31/2016 AD CARROLL DIRECTIVE Health Care Decision (hx) 03/31/2016 AD CARROLL DIRECTIVE Health Care Decision (hx) 03/31/2016 AD CARROLL DIRECTIVE Health Care Decision (hx) 03/31/2016 AD CARROLL DIRECTIVE Care Teams Tax Form Preparer Relationship Specialty Start Date End Date Ania Browning MD PCP - General Internal Medicine 12/02/21
--- OUTSIDE RECORDS SUMMARY | 2025-01-01 10:03 | XMS_ITS | Encounter Summary ---
Author Organization [facility] Address [address] [place] [address] Care Team Providers Care Textile Knitter Name Role Phone Ania Browning MD Primary Care Provider Un available Niru Li MD Primary Care Provider + Ania Browning MD Primary Care Provider Un available Encounter Details Date Type Department Care Team Description 06/01/2014 Orders Only Medicine/Pediatrics - [address] [id number] Ania Browning MD Type II or unspecified [...] URINE 173 mg/dL 12/17/2014 4:39 PM EDT [facility] MICROALBUMIN, RANDOM 714.8(H) 0.0 - 29.0 mg/L 12/17/2014 5:04 PM EDT [facility] MICROALB/CRE RATIO RANDOM 413.1(H) <30.0 mg/g 12/17/2014 5:04 PM EDT [facility] 12/17/2014 11:3 7 AM EDT 12/17/2014 11:37 AM EDT Ania Browning MD LAB Performing Organization Address [facility] Co de Phone Number [address] * (ABNORMAL) HEMOGLOBIN A1C (12/17/2014 11:37 AM EDT) Glycosylated Hemoglobin A1C 7.8(H) 4.0 - 6.0 % 12/17/2014 2:19 PM EDT [facility] Comment: HbA1C VALUES MAY NOT ACCURATELY REFLECT MEAN BLOOD GLUCOSE IN PATIENTS WITH HEMOGLOBIN VARIANTS SUCH HbF, HbS. 12/17/2014 11:3 7 AM EDT 12/17/2014 11:37 AM EDT Authorizing Provider Result Kulwant Browning MD LAB Performing Organization Address [facility] Co de Phone Number [address] * (ABNORMAL) LIPID PROFILE (12/17/2014 11:37 AM EDT) Cholesterol 225(H) 0 - 200 mg/dL 12/17/2014 2:52 PM EDT [facility] TRIGLYCERIDES 182(H) 0 - 150 mg/dL 12/17/2014 2:52 PM T [facility] HDL CHOLESTEROL 67 >40 mg/dL 5 2:52 PM T [facility] LDL CALCULATED 122(H) 0 - 100 mg/dL 12/17/2014 2:52 PM T [facility] TC-HDLC RATIO 3 0.0 - 4.4 mg/dL 12/17/2014 2:52 PM EDT [facility] 12/17/2014 11:3 7 AM EDT 12/17/2014 11:37 AM EDT Authorizing Provider Result Kulwant Browning MD LAB Performing Organization Address [facility] Co de Phone Number [address] * (ABNORMAL) BASIC METABOLIC PANEL (12/17/2014 11:37 AM EDT) GLUCOSE 251(H) 70 - 100 mg/dL 12/17/2014 2:52 PM T [facility] Comment: Reference range applicable to fasting specimens only Based on recommendations from the ADA and AACE, the fasting glucose reference range has been changed to 70-100 mg/dL. This change is effective September 23, 2009 BUN 31(H) 5 - 25 mg/dL 12/17/2014 2:52 PM EDT [facility] CREAT 0.9 0.7 - 1.5 mg/dL 12/17/2014 2:52 PM [facility] GFR > 60 >60 12/17/2014 2:52 PM [facility] Comment: If patient is -Cymraes, multiply result by 1.21 Chronic Kidney Disease: < 60 ml/min/1.73 square meters Kidney Failure: < 15 ml/min/1.73 square meters Sodium 137 133 - 145 mEq/L 12/17/2014 2:52 PM EDT [facility] Potassium 4.7 3.5 - 5.5 mEq/L 12/17/2014 2:52 PM [facility] Chloride 100 96 - 108 mEq/L 12/17/2014 2:52 PM [facility] CO2 20.2(L) 21.0 - 32.0 mEq/L 12/17/2014 2:52 PM [facility] CALCIUM 9.8 8.5 - 10.5 mg/dL 12/17/2014 2:52 PM [facility] 12/17/2014 11:3 7 AM EDT 12/17/2014 11:37 AM EDT Ania Browning MD LAB [address] documented in this encounter Visit Diagnoses Diagnosis Type II or unspecified type diabetes mellitus without mention of complication, uncontrolled- Primary documented in this encounter Care Teams Textile Knitter Relationship Specialty Start Date End Date Ania Browning MD PCP - General Internal Medicine 06/12/11 Niru Li MD [address] [place] [address] PCP - General Internal Medicine 11/17/21 12/01/21 Ania Browning MD PCP - General Internal Medicine 12/02/21 documented as of this encounter
== END 2025-01-01 10:05 | disposition home or self-care (01) ==
LOC: HO.HGI 09:19
PROVIDERS: PCP Nurse Practitioner Family; Visit Provider Internal Medicine Gastroenterology
DX: R74.01 Elevation of levels of liver transaminase levels (principal)
CPT/HCPCS: 99213

== ENCOUNTER 2025-01-01 09:19 | Outpatient (REF) | payer MEDICARE, SELFPAY ==
[2025-01-02 20:18] LABS: Transglutaminase Ab IgG 1.2 U/mL
== END 2025-01-01 09:20 | disposition home or self-care (01) ==
LOC: HO.LAB 09:19
PROVIDERS: PCP Nurse Practitioner Family; Visit Provider Internal Medicine Gastroenterology
DX: R74.01 Elevation of levels of liver transaminase levels (principal); R10.33 Periumbilical pain; G89.29 Other chronic pain; D69.6 Thrombocytopenia, unspecified; Z01.84 Encounter for antibody response examination
CPT/HCPCS: 36415; 84433; 86258; 86364; 99212

== ENCOUNTER 2025-01-09 08:21 | Day surgery (SDC) | payer MEDICARE, MEDICAID, SELFPAY ==
--- OUTSIDE RECORDS SUMMARY | 2024-12-14 08:03 | XMS_ITS | Clinical Summary ---
[facility] Organization [facility] Address [address] [place] [address] Care Team Providers Care Ski Technician Name Role Phone Ania Browning MD Primary Care Provider Surgical History Surgery Date Site/Laterality Comments CARPAL TUNNEL RELEASE 07/26/2008 PROCEDURE: [place] NEUROPLASTY &/TRANSPOS MEDIAN NRV CARPAL TUNNE CYSTOSCOPY 10/26/2011 PROCEDURE: [place] CYSTOURETHROSCOPY; COMMENT: Dr Sunny Miranda CYSTOSCOPY 03/31/2016 Left PROCEDURE: [place] CYSTOURETHROSCOPY; COMMENT: ureteroscopy, laser lithotripsy, stent placement COLONOSCOPY 08/2008 PROCEDURE: HISTORICAL COLONOSCOPY OTHER SURGICAL HISTORY 09/11/2020 PROCEDURE: [place] PRQ TRLUML CORONARY STENT W/ANGIO ONE ART/BRNCH [...] Documents on File Type Date Recorded Patient Bed Worker Expl anation Health Care Decision (hx) 03/31/2016 AD CARROLL DIRECTIVE Health Care Decision (hx) 03/31/2016 AD CARROLL DIRECTIVE Health Care Decision (hx) 03/31/2016 AD CARROLL DIRECTIVE Health Care Decision (hx) 03/31/2016 AD CARROLL DIRECTIVE Health Care Decision (hx) 03/31/2016 AD CARROLL DIRECTIVE Care Teams Ski Technician Relationship Specialty Start Date End Date Ania Browning MD PCP - General Internal Medicine 12/02/21
--- NOTE | 2025-01-05 11:37 | HO.ANESPROP2 ---
Documented by User: Nadya Griffith NP 01/05/25 13:06 HPI - Anesthesia Eval Consult details Narrative: 69 yr old female for upper endoscopy with Balloon Dilitation s/p GA with LMA 3 for Lithotripsy 11/2024 NSTEMI September 2020: underwent circumflex stenting; In 08/2023, again had NSTEMI. She underwent LAD stenting. Last cardiac catheterization data reviewed from 08/[address] Oliveira 12/2024, proximal LAD with 95% stenosis status post drug-eluting stent. Patent stent in the circumflex. Liver cirrhosis: ?AIH, INR 1.2 09/2024, no recent platelet count so will be done DOS COUNTS INCLUDE 234 BEDS AT [facility] Active Problems Active Problems: All Active Problems (Updated 12/27/24 @ 08:33 by Corrie Fontana) Hip osteoarthritis (Acute) Lower back pain (Acute) Staghorn calculus (Acute) Cystitis (Acute) Renal mass (Acute) Hematuria (Acute) Renal mass of unknown nature (Acute) Prediabetes (Acute) Normochromic normocytic anemia (Acute) Calcium nephrolithiasis (Acute) Abnormal CT scan, kidney (Acute) Gross hematuria (Acute) Anemia (Acute) Low bicarbonate (Acute) Left renal mass (Acute) Cirrhosis of liver (Acute) Obesity (BMI 30-39.9) (Acute) Hypocalcemia (Acute) Thrombocytopenia (Acute) Hypertension (Acute) Transaminitis (Acute) Statin-induced rhabdomyolysis (Acute) CAD (coronary artery disease) (Acute) Proteinuria (Acute) 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) Positive CASA (antinuclear antibody) (Acute) Dysphagia (Acute) Dyslipidemia (Acute) Hx of non-ST elevation myocardial infarction (NSTEMI) (Acute) Atherosclerotic cardiovascular disease (Acute) S/P cardiac catheterization (Acute) Urgency incontinence (Acute) Renal stones (Acute) Past Medical History Medical History Hx of vertigo Proteinuria 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 Mother No problems noted. Family history of problems with anesthesia: No Surgical History Surgical History History of liver biopsy History of esophagogastroduodenoscopy (EGD) Hx of bilateral cataract extraction Hx of heart artery stent Hx of lithotripsy S/P cardiac catheterization Hx laparoscopic cholecystectomy History of carpal tunnel release H/O colonoscopy Hx of cystoscopy History of Problems with Anesthesia: No Social History Social History Household Members: None Housing: Apartment Are you a primary residential caregiver to a significant other at home: No Do you presently have visiting nurse or other home services: No Alcohol intake: former Patient Tobacco Use Status: Never used Tobacco e-Cigarette/Vaping Use: Never Used Second Hand Smoke Exposure: No Use of substances other than those prescribed or required for medical reasons: No Advance Directives: No Advance Directives Information Provided: Yes Patient : No service: No Current occupational status: employed Current occupation: [employer] Current occupational exposures/hazards: No Cognitive needs: No Hearing needs: No Vision needs: No Meds Allergies Allergy/AdvReac Type Severity Reaction Status Date / Time peach (PEACH) Allergy Intermediate DIFFICULTY Verified 01/01/25 09:33 BREATHING Exam Narrative Narrative: EKG 05/2024 Vent. Rate : 097 BPM Atrial Rate : 097 BPM P-R Int : 212 ms QRS Dur : 128 ms QT Int : 384 ms P-R-T Axes : 032 -16 018 degrees QTc Int : 487 ms Sinus rhythm with 1st degree A-V block Right bundle branch block Abnormal ECG When compared with ECG of 02-SEP-2022 14:15, No significant change was found [place] [facility] [place] and Plan Final Anesthetic Review Family History of Problems with Anesthesia: No History of Problems with Anesthesia: No Documented by User: Walter Abdi MD 01/09/25 09:20 COUNTS INCLUDE 234 BEDS AT [facility] Past Medical History Medical History Hx of vertigo Proteinuria 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 Mother No problems noted. Surgical History Surgical History History of liver biopsy History of esophagogastroduodenoscopy (EGD) Hx of bilateral cataract extraction Hx of heart artery stent Hx of lithotripsy S/P cardiac catheterization Hx laparoscopic cholecystectomy History of carpal tunnel release H/O colonoscopy Hx of cystoscopy Social History Social History Household Members: None Housing: Apartment Are you a primary residential caregiver to a significant other at home: No Do you presently have visiting nurse or other home services: No Alcohol intake: former Patient Tobacco Use Status: Never used Tobacco e-Cigarette/Vaping Use: Never Used Second Hand Smoke Exposure: No Use of substances other than those prescribed or required for medical reasons: No Advance Directives: No Advance Directives Information Provided: Yes Patient : No service: No Current occupational status: employed Current occupation: [employer] Current occupational exposures/hazards: No Cognitive needs: No Hearing needs: No Vision needs: No Meds Allergies Allergy/AdvReac Type Severity Reaction Status Date / Time peach (PEACH) Allergy Intermediate DIFFICULTY Verified 01/01/25 09:33 BREATHING Exam Airway Mallampati Class: II TM Dist: <=3cm Neck ROM: Full Loose/Missing/Broken Teeth: Yes, Upper and Lower Heart: see above. Lungs: ok Assessment and Plan Assessment Anesthesia Assessment: Anesthesia Plan Discussed and Chart Reviewed Final Anesthetic Review NPO: Yes ASA Class: III and IV Final Preanesthetic Review: No Changes in Pt Med Stat, Meds/Allgs Chart Reviewed, Consent Obtained/Reviewed and Anes Risks/Benef Reviewed Patient Risk: High Procedure Risk: Intermediate Anesthetic Plan Anesthetic Plan: Agree w/ Assess. and Plan and TIVA Disposition: Standard PACU
[2025-01-09 08:37] VITALS: BP 167/71; PULSE 85; RESP 16; TEMP 36.6; O2SAT 99; BMI 32.8
[2025-01-09] MEDS: Lactated Ringers 1,000 ML 100 ML IVCONT (08:53)
[2025-01-09 09:01] LABS: Platelet Count (Citrate) 74 X10*3/uL (150-310)
--- NOTE | 2025-01-09 09:20 | P.HPSUR_ITS ---
Pre-Procedural Eval Section A - 24 Hr Update-Section A only Date of Service: 01/09/25 Section B - Complete if H&P > 30 days Chief Complaint: gastritis without bleeding,Esophageal obstruction Relevant Family History (Specify if Yes): No Relevant Social History: None Present Medications: see Short Stay Collaborative assessment Medical History: Significant History (Hx of vertigo Proteinuria Autoimmune hem olytic anemia due to IgG Positive CASA (antinuclear antibody) Dysphagia Dyslipidemia Hx of non-ST elevation myocardial infarction (NSTEMI) CAD (coronary artery disease) Rhabdomyolysis Atherosclerotic cardiovascular disease Obesity Asthma Urgency incontinence Re) History of Previous Operations: Relevant previous surgery/procedure and date(s) (History of liver biopsy History of esophagogastroduodenoscopy (EGD) Hx of bilateral cataract extraction Hx of heart artery stent Hx of lithotripsy S/P cardiac catheterization Hx laparoscopic cholecystectomy History of carpal tunnel release H/O colonoscopy Hx of cystoscopy) Allergies: Allergies Allergy/AdvReac Type Severity Reaction Status Date / Time peach (PEACH) Allergy Intermediate DIFFICULTY Verified 01/01/25 09:33 BREATHING Review of Systems Sugical H&P ROS: Negative: Constitution, Cardiovascular, Respiratory, Neurological, Psychiatric, Hem-Onc, Allergic/Immunologic, Gastrointestinal, Genitourinary, Musculoskeletal, Integumentary, Endocrine and Eyes/Ears/Nose/Throat Exam Surgical H&P Exam: Normal: HEENT, Normal: Heart, Normal: Lungs, Normal: Extremities, Normal: Abdomen, Normal: Skin and Normal: Neurological Plan Diagnosis/Plan: Unchanged I have reviewed the history and physical and performed a pertinent physical examination on my patient. No changes have occurred unless specified. Time Spent With Patient Time: Total time managing care of this patient today ____ minutes.
--- NOTE | 2025-01-09 09:40 | W.PM.OPN ---
Operative Note Operative Note Date of Service: 01/09/25 Narrative: Procedure Description: EGD Indication: dysphagia Anesthesia: MAC FLEXIBLE TRANSORAL UPPER GASTROINTESTINAL ENDOSCOPY UPPER ENDOSCOPY Consent: Indications for the procedure and potential complications of bleeding, perforation, reaction to medications and missed diagnosis were discussed with the patient and informed consent was obtained. Instrument: Olympus GIF H 190 J mid size upper endoscope Monitoring: Vital signs and clinical assessment, continuous EKG monitoring, Pulse oximetry, Carbon Dioxide monitoring and blood pressure monitoring were done throughout the procedure. Procedure: The patient was placed in the left lateral decubitis position and pre-procedure medications were administered and a bite block was placed. The endoscope was inserted into the mouth and advanced under direct vision to the third part of duodenum. A careful inspection was made as the upper endoscope was withdrawn including a retroflexed examination of the proximal stomach; Findings and interventions are described below. Findings: Larynx:normal Esophagus: GE junction at 38 cm, diaphragm hiatus at 38 cm, normal mucosa-- mild esophagitis, no varices seen. there was a stricture at 24 cm, The scope was gently navigated around it and in the process dilated the stricture with superfical tear noted. Stomach: patchy erythema with scarring and nodularity . Biopsies were obtained. Grade 2 flap valve on retroflexed examination of the cardia. Duodenum: Normal bulb and descending duodenum, Intervention: Biopsies as noted above, esophageal dilation Impression/Findings: gastritis esophagitis esophageal stricture PLAN: magic mouthwash for 1 week GERD precautions repeat dilation in 4-8 weeks, may have to increase dose of PPI
[2025-01-09 09:43] VITALS: BP 119/56; PULSE 72; RESP 17; TEMP 36.1; O2SAT 96
[2025-01-09 09:58] VITALS: BP 125/64; PULSE 71; RESP 14; O2SAT 100
[2025-01-09 10:13] VITALS: BP 125/67; PULSE 73; RESP 16; TEMP 36.4; O2SAT 100
== END 2025-01-09 10:47 | disposition home or self-care (01) ==
PROVIDERS: Nurse Practitioner; PCP Nurse Practitioner Family; Visit Provider Internal Medicine Gastroenterology
PROC: (CPT 43249; principal; 2025-01-09 09:40)
DX: K22.2 Esophageal obstruction (principal); R13.10 Dysphagia, unspecified; K29.00 Acute gastritis without bleeding; K20.80 Other esophagitis without bleeding; K44.9 Diaphragmatic hernia without obstruction or gangrene; K74.60 Unspecified cirrhosis of liver; D59.19 Other autoimmune hemolytic anemia; E78.5 Hyperlipidemia, unspecified; R74.01 Elevation of levels of liver transaminase levels; I25.10 Atherosclerotic heart disease of native coronary artery without angina pectoris; Z95.5 Presence of coronary angioplasty implant and graft; I25.2 Old myocardial infarction; R32 Unspecified urinary incontinence; Z87.442 Personal history of urinary calculi
CPT/HCPCS: 43249; 43239; 36415; 88305; 88313; 88342; J2003; J2704

== ENCOUNTER → 2025-01-09 08:21 | Outpatient (BNV) | payer MEDICARE, MEDICAID, SELFPAY | PROVIDERS: PCP Nurse Practitioner Family; Visit Provider Internal Medicine Gastroenterology | DX: K22.2 Esophageal obstruction (principal); K20.90 Esophagitis, unspecified without bleeding; K29.70 Gastritis, unspecified, without bleeding | CPT/HCPCS: 43239 ==

== ENCOUNTER 2025-01-17 09:08 | Outpatient (AMB) | payer MEDICARE, MEDICAID, SELFPAY ==
--- NOTE | 2025-01-17 09:10 | A.OFFVIS_ITS ---
VS Expanded 01/17/25 10:00 01/17/25 10:45 Height 5 ft 5 ft Weight 167 lb 2.1 oz 167 lb BMI 32.6 32.6 Intake Visit Reasons: Celiac disease Allergies peach (PEACH) Allergy (Intermediate, Verified 01/01/25 09:33) DIFFICULTY BREATHING Nutrition Presentation Details: Pt presents for MNT and diet instruction related to recent dx of Celiac Disease BS Monitoring Most Recent Diabetes Results: Cholesterol, (<200) 133 mg/dL 12/26/24 HDL Cholesterol, (>40) 47 mg/dL 12/26/24 Triglycerides, (<150) 68 mg/dL 12/26/24 PKN-Clabnvk-Rf.Jeor Equation Height: 5 ft Weight: 167 lb Resting Metabolic Rate: 1213.68 Calculated Activity Level: Sedentary Calories Needed to Maintain Weight: 1456.42 Diagnosis Nutrition problem #1: food nutri know defi As related to (etiology) #1: diagnosis As evidenced by (sign/symptom) #1: knowledge deficit of diet (related to celiac disease) PFSH Medical History Hx of vertigo Proteinuria 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 Mother No problems noted. Social History Household Members: None Housing: Apartment Are you a primary mall plant caretaker to a significant other at home: No Do you presently have visiting nurse or other home services: No Alcohol intake: former Patient Tobacco Use Status: Never used Tobacco e-Cigarette/Vaping Use: Never Used Second Hand Smoke Exposure: No service: No Current occupational status: employed Current occupation: [employer] Current occupational exposures/hazards: No Cognitive needs: No Hearing needs: No Vision needs: No Assessment & Plan Assessment & Plan (1) Celiac disease: Code(s): K90.0 - Celiac disease Category: Medical Plan: Discussed and provided a list of food sources of gluten and derivatives of gluten Discussed foods naturally gluten free and how to incorporate into a healthy meal Discussed importance of preventing cross contamination (including but not limited to using same cutting board, toaster, double dipping, frying in same oil as gluten containing foods) Discussed precautions when eating out and how to find places that offer gluten free options Discussed importance of following healthy plate method, including a variety of healthy -gluten free foods Patient Instructions: Must avoid and eliminate all gluten containing foods and its derivatives (see list printed with names of gluten containing foods and its derivatives ) Avoid cross contamination (including but not limited to using same cutting board, toaster, double dipping , frying in the same oil, utensil use) see list of foods naturally free of gluten and [address] meal plan as a reference Take a daily multivitamin Coding Level of Care Code Nutr Indiv Intake (66908) Diagnoses Celiac disease K90.0 Time Spent (min) 30
[2025-01-17 10:00] VITALS: BMI 32.6
[2025-01-17 10:45] VITALS: BMI 32.6
--- OUTSIDE RECORDS SUMMARY | 2025-01-17 10:49 | XMS_ITS | Clinical Summary ---
[facility] Organization [facility] Address [address] [place] [address] Care Team Providers Care Lease Out Worker Name Role Phone Ania Browning MD Primary Care Provider Surgical History Surgery Date Site/Laterality Comments CARPAL TUNNEL RELEASE 07/26/2008 PROCEDURE: [place] NEUROPLASTY &/TRANSPOS MEDIAN NRV CARPAL TUNNE CYSTOSCOPY 10/26/2011 PROCEDURE: MO CYSTOURETHROSCOPY; COMMENT: Dr Sunny Miranda CYSTOSCOPY 03/31/2016 Left PROCEDURE: MO CYSTOURETHROSCOPY; COMMENT: ureteroscopy, laser lithotripsy, stent placement COLONOSCOPY 08/2008 PROCEDURE: HISTORICAL COLONOSCOPY OTHER SURGICAL HISTORY 09/11/2020 PROCEDURE: MO PRQ TRLUML CORONARY STENT W/ANGIO ONE ART/BRNCH [...] Blood Sugar Contro l Test (HGBA1C) 04/19/2022 Depression Screening 05/10/2024 COVID-19 Vaccine (3 - 2024-2 6 season) 2025 11/21/2020, 10/24/2020 Influenza Vaccine (#1) 2025 HIB [...] Documents on File Type Date Recorded Patient Straightening Roll Operator Expl anation Health Care Decision (hx) 03/31/2016 AD CARROLL DIRECTIVE Health Care Decision (hx) 03/31/2016 AD CARROLL DIRECTIVE Health Care Decision (hx) 03/31/2016 AD CARROLL DIRECTIVE Health Care Decision (hx) 03/31/2016 AD CARROLL DIRECTIVE Health Care Decision (hx) 03/31/2016 AD CARROLL DIRECTIVE Care Teams Lease Out Worker Relationship Specialty Start Date End Date Ania Browning MD PCP - General Internal Medicine 12/02/21
== END 2025-01-17 09:38 | disposition home or self-care (01) ==
LOC: HO.ENCR 09:09
PROVIDERS: PCP Nurse Practitioner Family; Visit Provider Dietitian, Registered
DX: K90.0 Celiac disease (principal)

== ENCOUNTER → 2025-01-17 09:08 | Outpatient (BNVA) | payer MEDICARE, MEDICAID, SELFPAY | PROVIDERS: PCP Nurse Practitioner Family; Visit Provider Dietitian, Registered | DX: K90.0 Celiac disease (principal); Z71.3 Dietary counseling and surveillance | CPT/HCPCS: 97802 ==

== ENCOUNTER 2025-01-19 08:00 | Outpatient (RCR) | payer MEDICARE, OTHER, SELFPAY ==
[2024-12-20 07:07] VITALS: BP 154/76; PULSE 84; O2SAT 98
--- NOTE | 2024-12-20 11:29 | MHC.PT.EP ---
[facility] [place] Office [place] Office [place] Office [address] Kamilla Polanco [address] [phone] F: [phone] F: [phone] F: [phone] F: [phone] Physical Therapy Plan of Care Date of Evaluation: 12/20/24 Date of Surgery: Diagnosis: LBP W Lt LE SXS Assessment: 69 YO FEMALE REF TO PT FOR LBP, BALANCE, GAIT-> SHE IS CURRENTLY AMB W A CANE, SHE NOTES SHE HAS A ROLLATOR IN STORAGE. OBJECTIVE FINDINGS: (+) LEVOTHORACO (PRIMARY) /DEXTRO LUMBAR (SECONDARY) W Rt LLI-> CREATING COMPENSATORY GAIT ALTERATION, LIMITED TRUNK AROM, DECR DISTAL LEs AROM DUE TO LEs EDEMA, GENERAL WEAKNESS, TUG SCORE OF 29 SEC, DYNAMIC BALANCE DEFICITS DUE TO THE ABOVE MENTIONED, AND FLUCTUATING LBP W INTERMITTENT LE RADIC SXS (INFLUENCED BY LLI). THE Pt IS MOTIVATED FOR PT, ADDRESSING HER LBP, MECHANICAL IRRITANT DUE TO LLI, AND BALNCE FOR OPTIMAL LEVEL OF FUNCTIONAL INDEPENDENCE. Frequency and Duration: The patient will be seen 2 x WK x 5 WKS Short Term Goals: INITIATE HEP-> ANKLE / LEs FLEXIB ADDRESS LLI, DECR LBP TO 2-3/10 AND REDUCED LE RADIC SXS BY 50% IMPROVE TRANSFERS, BED MOB, GAIT (TO TRIAL W ROLLATOR OR METAL, ADJUSTABLE CANE) Rubbish Collection Supervisor Goals: INDEP HEP IMPROVED TUG, AT EVAL 29 SEC MORE EFFICIENT GAIT ON LEVEL, W LEAST RESTRICTIVE AD IMPROVED PELVIC SYMM TO REDUCE LS COMPRESSION Treatment Plan: Modalities to reduce pain, spasms and effusion. Manual therapy to restore motion and function. Therapeutic exercise to improve strength and flexibility. Neuromuscular re-education for posture and balance. Therapeutic activities to return to functional activities of daily living. Electronically signed by: ERIC PRESCOTT,PT Please sign and return to therapist. Thank you for your referral.
--- NOTE | 2025-01-23 10:47 | MHC.PT.DC ---
[facility] [place] Office [place] Office [place] Office [address] Kamilla Polanco [address] [phone] F: [phone] F: [phone] F: [phone] F: [phone] Physical Therapy Discharge Report Diagnosis: LBP W Lt LE SXS Date of Surgery: Date of Evaluation: 12/20/24 Date of Discharge: 01/23/25 Treatments to Date: 10 Cancellations to Date: 0 No Shows to Date: Discharge Status: Achieved Goals Improved Function Independent with HEP Patient Elected to Stop Discharge Summary: CIRO BENEFITTED FROM PT, ADDRESSING HER LBP AND LE SXS- SHE MET HER PT GOALS TO MAX POTENTIAL AT THIS TIME, SHE IS INDEP AND COMPLIANT W HER HEP AND DISPLAYED IMPROVED TRANSFERS AND GAIT MECHANICS/ OVERALL IMPROVED SAFETY WITH FUNCTIONAL MOBILITY TOLERANCE- HER LEFI AT D/C WAS 54/80. Electronically signed by: ERIC PRESCOTT,PT Please sign and return to therapist. Thank you for your referral.
== END 2025-01-23 10:48 | disposition home or self-care (01) ==
LOC: HO.PT 08:00
PROVIDERS: PCP Physician Assistant; Visit Provider Physical Medicine & Rehabilitation
DX: M54.50 Low back pain, unspecified (principal)
CPT/HCPCS: 97110; 97162

== ENCOUNTER 2025-01-25 07:41 | Inpatient (IN) | payer MEDICARE, SELFPAY ==
--- NOTE | ~2025-01-25 | CT_ITS ---
CLINICAL HISTORY: sepsis UTI hx of stones CT abdomen and pelvis with contrast Comparison: MR - MR ABDOMEN WO/W CON - 09/24/24 16:[address]/MA/SR - CT ABDOMEN WO/W IV CON - 08/23/24 13:26 EDT Findings: Linear basilar subsegmental atelectasis or pleural-parenchymal scarring. Liver is nodular, cirrhotic. Gallbladder is unremarkable. The pancreas is within normal limits. Spleen is enlarged. Adrenal glands are within normal limits. There is peripheral wall thickening of the portal vein suggesting nonocclusive thrombus. The right kidney is atrophic or hypoplastic. A ureteral stent is in place in the left kidney. Mild left perinephric fat stranding is present. Varicose portal venous collateral veins are present. Fluid throughout the distal large bowel suggesting abnormal motility. No CT evidence of bowel obstruction. Atherosclerotic vascular calcifications are present. Pelvic contents unremarkable. Normal appendix. Mild superior endplate compression of L3 stable since prior MRI. IMPRESSION: 1. Left ureteral stent in place. Mild perinephric fat stranding or inflammatory changes. 2. Cirrhosis with sequela of portal venous hypertension. 3. Nonocclusive portal vein thrombus This document has been electronically signed by: Nick Buckley MD, PHD on 01/26/2025 04:08:23
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
[2025-01-25 07:50] VITALS: BP 184/102; PULSE 94; O2SAT 97; BMI 36.2
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
[2025-01-25 08:02] VITALS: BP 152/63; PULSE 94; RESP 18; TEMP 36.6; O2SAT 100
[2025-01-25 08:11] LABS: Appearance Urine Cloudy; Glucose Urine UA Negative (Negative); PH 7.0 (5.0-9.0); Specific Gravity - Urine 1.010 (1.005-1.025); UMIC TRIGGER UACC YES
[2025-01-25 08:13] LABS: UACC Culture Trigger YES
[2025-01-25 08:20] LABS: Cannabinoid Screen Urine Not Detected (Not Detect)
[2025-01-25 08:30] LABS: Hematocrit 36.0 % (37.0-47.0); Hemoglobin 11.7 g/dl (12.0-16.0); Imm Gran Abs Auto 0.04 X10*3/uL (0.00-0.03); Imm Gran Pct Auto 0.5 % (0.0-0.4); Lymphocytes Absolute Auto 0.9 X10*3/uL (1.2-4.9); MANUAL DIFF FLAG SCAN; Mean Corpuscular HGB Conc 32.5 g/dl (31.0-35.0); Mean Corpuscular Hemoglobin 31.7 pg (27.0-33.0); Mean Corpuscular Volume 97.6 fL (80.0-98.0); NRBC Abs Auto 0.000 X10*3/uL (0.0-0.012); NRBC Pct Auto 0.0 /100WBC (0.0-0.2); PLT CLUMP 1; Red Blood Count 3.69 X10*6/uL (4.20-5.50); SCAN SMEAR FLAG 1
[2025-01-25 08:32] LABS: White Blood Count 8.2 X10*3/uL (4.8-10.8)
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
[2025-01-25 08:40] LABS: Alanine Aminotransferase 13 U/L (0-31); Albumin Level 3.0 g/dL (3.5-5.0); Alkaline Phosphatase 94 U/L (39-117); Anion Gap 8 (12-20); Aspartate Amino Transferase 43 U/L (5-31); Blood Urea Nitrogen 15 mg/dL (9-16); Calcium 8.4 mg/dL (8.4-10.2); Carbon Dioxide 21 mmol/L (22-29); Chloride 109 mmol/L (96-108); Creatinine Clr Calc Pharmacy 42.8; Estimated Glomerular Filt Rate 46; Potassium 4.5 mmol/L (3.3-5.1); Sodium 133 mmol/L (135-145); Total Protein 8.5 g/dL (6.5-8.0)
--- OUTSIDE RECORDS SUMMARY | 2025-01-25 09:17 | XMS_ITS | Clinical Summary ---
[facility] Address [address] [place] [address] Care Team Providers Care Sheet Metal Installer Name Role Phone Ania Browning MD Primary Care Provider Surgical History Surgery Date Site/Laterality Comments CARPAL TUNNEL RELEASE 07/26/2008 PROCEDURE: [place] NEUROPLASTY &/TRANSPOS MEDIAN NRV CARPAL TUNNE CYSTOSCOPY 10/26/2011 PROCEDURE: [place] CYSTOURETHROSCOPY; COMMENT: Dr Sunny Miranda CYSTOSCOPY 03/31/2016 Left PROCEDURE: [place] CYSTOURETHROSCOPY; COMMENT: ureteroscopy, laser lithotripsy, stent placement COLONOSCOPY 08/2008 PROCEDURE: HISTORICAL COLONOSCOPY OTHER SURGICAL HISTORY 09/11/2020 PROCEDURE: [place] PRQ TRLUML CORONARY STENT W/ANGIO ONE ART/BRNCH [...] Documents on File Type Date Recorded Patient Pot Reliner Expl anation Health Care Decision (hx) 03/31/2016 AD CARROLL DIRECTIVE Health Care Decision (hx) 03/31/2016 AD CARROLL DIRECTIVE Health Care Decision (hx) 03/31/2016 AD CARROLL DIRECTIVE Health Care Decision (hx) 03/31/2016 AD CARROLL DIRECTIVE Health Care Decision (hx) 03/31/2016 AD CARROLL DIRECTIVE Care Teams Sheet Metal Installer Relationship Specialty Start Date End Date Ania Browning MD PCP - General Internal Medicine 12/02/21
[2025-01-25 10:36] VITALS: BP 127/63; PULSE 73; RESP 14; O2SAT 98
[2025-01-25 12:05] VITALS: BP 134/78; PULSE 78; RESP 16; O2SAT 99
--- NOTE | 2025-01-25 13:55 | PHA.MEDREC ---
Pharmacy Consult ? Medication Reconciliation Pharmacy has completed the medication reconciliation, spoke to patient who confirmed all meds - no longer takes percocet and only took pantoprazole after her surgery.
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
[2025-01-25 20:22] LABS: COVID-19 Test Negative (Negative); IDNOW Serial# 55D5AD1C
[2025-01-25 20:30] VITALS: BP 138/61; PULSE 94; RESP 20; TEMP 39.4; O2SAT 94
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
[2025-01-25 22:18] LABS: NT Pro B Type Natriuretic Pept 1040.4 pg/mL (<300)
[2025-01-25 22:22] LABS: Venous Blood Gas Refer to POC result
[2025-01-25 22:23] LABS: VBG HCO3 19 mmol/L (22-26); VBG O2 % Saturation 100.0 %
[2025-01-25 22:26] LABS: Ammonia 101 umol/L (13-55)
[2025-01-25] MEDS: Lactated Ringers 1,000 ML 100 ML IVCONT (22:46)
[2025-01-25] MEDS: Lactated Ringers 1,000 ML 999 ML IV (22:46)
[2025-01-25 22:47] VITALS: TEMP 37.9
[2025-01-25 22:49] LABS: Hematocrit 29.0 % (37.0-47.0); Hemoglobin 9.8 g/dl (12.0-16.0); Imm Gran Abs Auto 0.07 X10*3/uL (0.00-0.03); Imm Gran Pct Auto 1.3 % (0.0-0.4); Lymphocytes Absolute Auto 0.6 X10*3/uL (1.2-4.9); MANUAL DIFF FLAG SCAN; Mean Corpuscular HGB Conc 33.8 g/dl (31.0-35.0); Mean Corpuscular Hemoglobin 32.0 pg (27.0-33.0); Mean Corpuscular Volume 94.8 fL (80.0-98.0); NRBC Abs Auto 0.000 X10*3/uL (0.0-0.012); NRBC Pct Auto 0.0 /100WBC (0.0-0.2); PLT CLUMP 1; Red Blood Count 3.06 X10*6/uL (4.20-5.50); SCAN SMEAR FLAG 1
[2025-01-25 22:50] LABS: White Blood Count 5.4 X10*3/uL (4.8-10.8)
[2025-01-26] VITALS (8 sets, daily range): BP systolic 98–149; BP diastolic 51–75; PULSE 78–91; RESP 14–20; TEMP 36.9–37.7; O2SAT 95–100; BMI 36.3; BMI 36.2
[2025-01-26] MEDS: Acetaminophen Supp 650 MG SUPP.RECT PR (00:47)
--- NOTE | 2025-01-26 01:01 | PC.NURSE ---
LR bolus did not infused, pt needing several of reminders to not bend arm. Provider indicated she no longer wants pt to have the bolus. Bolus taken down and charted against
[2025-01-26] MEDS: iohexoL 350 MG/ML 100 ML INFUS..BTL 85 ML IV (02:53)
[2025-01-26 04:08] LABS: MANUAL DIFF FLAG NO
[2025-01-26 04:23] LABS: Hematocrit 33.2 % (37.0-47.0); Hemoglobin 10.6 g/dl (12.0-16.0); Imm Gran Abs Auto 0.02 X10*3/uL (0.00-0.03); Imm Gran Pct Auto 0.4 % (0.0-0.4); Lymphocytes Absolute Auto 1.0 X10*3/uL (1.2-4.9); Mean Corpuscular HGB Conc 31.9 g/dl (31.0-35.0); Mean Corpuscular Hemoglobin 31.9 pg (27.0-33.0); Mean Corpuscular Volume 100.0 fL (80.0-98.0); NRBC Abs Auto 0.000 X10*3/uL (0.0-0.012); NRBC Pct Auto 0.0 /100WBC (0.0-0.2); Red Blood Count 3.32 X10*6/uL (4.20-5.50); White Blood Count 5.2 X10*3/uL (4.8-10.8)
[2025-01-26 04:25] LABS: Anion Gap 9 (12-20); Blood Urea Nitrogen 15 mg/dL (9-16); Calcium 7.9 mg/dL (8.4-10.2); Carbon Dioxide 18 mmol/L (22-29); Chloride 112 mmol/L (96-108); Creatinine Clr Calc Pharmacy 41.7; Estimated Glomerular Filt Rate 45; Iron 17 mcg/dL (30-160); Percent Iron Saturation 13 % (15-50); Potassium 3.9 mmol/L (3.3-5.1); Sodium 135 mmol/L (135-145); Total Iron Binding Capacity 128 mcg/dL (228-428); Unsaturated Iron Binding 111 ug/dL
[2025-01-26 04:44] LABS: INTERNATIONAL NORM RATIO 1.2 (0.9-1.1); Partial Thromboplastin Time 36.6 SEC (26.7-34.1); Prothrombin Time 13.6 SEC (10.9-12.4)
[2025-01-26 04:51] LABS: Vitamin B12 883 pg/mL (200-900)
--- NOTE | 2025-01-26 07:00 | CA_ITS ---
Transthoracic Echocardiogram Patient (Last, First, Middle): Claudia Nair, Gender: Female Date of : 1955 Age: 69 Procedure Date: 01/26/2025 Procedure Type: Transthoracic Echocardiogram Location: ER Height: 149.86 cm Weight: 81.19 kg BSA: 1.76 m2 Heart Rate: bpm BP: 143 / 73 mmHg Director Speech And Hearing: BETTIE Referring MD: Tatiana Bell FLOORING PROFESSIONAL- Symptoms: elevated BNP, BLE edema Study Quality: Good ECG Rhythm: Sinus Conclusions: - The left ventricular systolic function is hyperdynamic. The visually estimated ejection fraction is >70%. - No obvious valvular pathology seen on this study. Findings Left Ventricle Normal left ventricular cavity size. There is mildly increased left ventricular wall thickness. The left ventricular systolic function is hyperdynamic. The visually estimated ejection fraction is >70%. There is no evidence of regional wall motion abnormalities. Diastolic function is normal for age. Right Ventricle Normal right ventricular cavity size and systolic function. Atria The left atrium is mildly dilated. The right atrium is normal in size. Aortic Valve The aortic valve was not well visualized. There is no aortic valve stenosis. There is no aortic valve regurgitation. Mitral Valve There is mild mitral annular calcification. There is trace mitral valve regurgitation. There is no mitral valve stenosis. Pulmonic Valve The pulmonic valve is likely normal. Tricuspid Valve There is trace tricuspid valve regurgitation. There is no evidence of pulmonary hypertension. Great Vessels The asc aorta is normal in size. Venous The inferior vena cava is normal in size and collapses less than 50% with inspiration. Pericardium/Pleural There is no evidence of pericardial effusion. Prior Study Comparison Changes noted compared to prior study dated: 09/10/2020. No overt wall motion abnormalities. Recommendations, Care & Conclusions No obvious valvular pathology seen on this study. Measurements 2D Linear Measurements IVSd: 1.20 0.6-0.9/0.6-1.0 cm LVIDd: 3.92 3.9-5.3/4.2-5.9 cm LVIDd Index: 2.23 2.4-3.2/2.2-3.1 cm/m2 LVIDs: 2.64 2.0-3.6 cm LVPWd: 1.22 0.7-1.1 cm Ao Root: 2.60 2.1-3.5 cm LA Diam: 4.50 2.7-3.8/3.0-4.0 cm LAIDs Index: 2.56 1.5-2.3 cm/m2 LV Mass: 202.39 67-162/88-224 g LV Mass Index: 114.99 43-95/49-115 g/m2 LVOT Diam: 2.00 3.0+(-)1.3 cm 2D Systolic Function EF 4C: 65.50 >55% EF 2C: 62.20 >55% EF BiP: 62.80 >55% Mitral Valve MV Pk E: 0.99 MV PK A: 1.13 MV Decel Time: 214.00 E/A: 0.90 E'Lateral: 10.10 E'Medial: 7.94 E/E' Med: 12.50 E/E' Lat: 9.80 PHT: 63.00 MVA PHT: 3.49 Decel Montague: 4.65 Aortic Valve AoV Pk Bismark: 2.13 AoV Mn Bismark: 1.41 AoV VTI: 0.42 AoV Pk Grad: 18.00 Aov Mn Grad: 9.00 MADELIN Cont.VTI: 2.12 LVOT LVOT Pk Bismark: 1.35 LVOT Mn B[place]: 0.87 LVOT VTI: 0.28 LVOT Pk Grad: 7.00 LVOT Mn Grad: 4.00 LVOT Diam: 2.00 LVOT Area: 3.14 Diastolic Function MV Pk E: 0.99 MV Pk A: 1.13 E/A: 0.90 E'Medial: 7.94 E/E' Med: 12.50 E' Laterial: 10.10 E/E' Lat: 9.80 Right Ventricle TAPSE (mm): 29.00 TVS' Bismark: 14.00 Tricuspid Valve TR Pk Bismark: 2.64 TR Pk Grad: 28.00 RA Press: 3.00 RVSP: 31.00 Great Vessels Aorta Ao Root-2D: 2.60 2.0-3.7 cm Ao Asc: 3.30 2.1-3.4 cm Pulmonary Veins Pulm Vein S/D 0.90 Pulmonary Valve PV Pk Bismark: 1.29 Peak PV Grad: 7.00 Updated in Other Vendor System with Status of Final Reid Oliveira MD electronically signed on 01/26/2025 5:18:14 PM with status of Final
[2025-01-26] MEDS: 0.9 % Sodium Chloride Flush 3 ML SYRINGE IVFLUSH ×2 (07:22→23:50)
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
--- NOTE | 2025-01-26 11:49 | PC.NURSE ---
Addendum entered by Esther Quigley 01/26/25 15:17: PT recommending STR s/p being d/c'd. Original Note: PT eval being completed at this time.
--- NOTE | 2025-01-26 15:00 | PC.NURSE ---
echocardiogram being completed at this time. plan of care ongoing.
[2025-01-27 03:20] VITALS: BP 151/81; PULSE 96; RESP 16; TEMP 37.1; O2SAT 98
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
[2025-01-27 07:41] VITALS: BP 132/66; PULSE 90; RESP 17; TEMP 37.2; O2SAT 99
[2025-01-27] MEDS: Aspirin Enteric Coated 81 MG TABLET.DR PO (07:59)
[2025-01-27] MEDS: 0.9 % Sodium Chloride Flush 3 ML SYRINGE IVFLUSH (08:00)
[2025-01-27 08:36] LABS: Ammonia 40 umol/L (13-55)
--- NOTE | 2025-01-27 10:07 | MHC.CM.PN ---
CM met with Patient at bedside to discuss PT's recommendation for STR. Patient is agreeable to a SNF search, which has been initiated. CM will follow.
[2025-01-27 11:36] VITALS: BP 126/77; PULSE 92; RESP 18; TEMP 36.7; O2SAT 96
--- NOTE | 2025-01-27 12:26 | MHC.CM.PN ---
[facility] has accepted Patient for STR; CM has asked them to initiate insurance auth. CM will follow.
[2025-01-27] MEDS: Sulfamethox/Trimeth 800/160 TABLET 1 TAB PO ×2 (12:40→22:52)
[2025-01-27 15:50] VITALS: BP 117/58; PULSE 78; RESP 18; TEMP 36.2; O2SAT 97
[2025-01-27 20:00] VITALS: BP 133/58; PULSE 75; RESP 16; TEMP 36.4; O2SAT 98
[2025-01-28] VITALS (7 sets, daily range): BP systolic 101–127; BP diastolic 52–78; PULSE 73–91; RESP 16–18; TEMP 36.2–36.8; O2SAT 93–100
[2025-01-28] MEDS: 0.9 % Sodium Chloride Flush 3 ML SYRINGE IVFLUSH ×4 (00:34→20:00)
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
[2025-01-28] MEDS: Sulfamethox/Trimeth 800/160 TABLET 1 TAB PO ×2 (09:24→20:00)
[2025-01-28] MEDS: Aspirin Enteric Coated 81 MG TABLET.DR PO (09:24)
[2025-01-28 12:30] LABS: E. coli EAEC Not Detected (Not Detect.); E. coli EPEC Not Detected (Not Detect.); E. coli ETEC Not Detected (Not Detect.); E. coli STEC Not Detected (Not Detect.); Shigella sp./EIEC Not Detected (Not Detect.)
[2025-01-29 03:09] VITALS: BP 109/59; PULSE 67; RESP 16; TEMP 36.3; O2SAT 97
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
[2025-01-29 07:56] VITALS: BP 100/69; PULSE 71; RESP 18; TEMP 36.6; O2SAT 98
[2025-01-29] MEDS: 0.9 % Sodium Chloride Flush 3 ML SYRINGE IVFLUSH ×3 (09:46→20:06)
[2025-01-29] MEDS: Aspirin Enteric Coated 81 MG TABLET.DR PO (09:46)
[2025-01-29] MEDS: Sulfamethox/Trimeth 800/160 TABLET 1 TAB PO ×2 (09:46→20:01)
--- NOTE | 2025-01-29 09:48 | MHC.CM.PN ---
Addendum entered by Verenice Gillette RN 01/29/25 12:41: CM RECEIVED MESSAGE FROM [facility] THAT LASCK OF INSURANCE WILL NOT EFFECT ABILITY TO GO TO SNF, AT TIME OF THIS NOTE INS AUTH STILL PENDING. Addendum entered by Verenice Gillette RN 01/29/25 10:37: CM MET W/PT, PT DECLINES HAVING AUTOMOTIVE INSURANCE AT THIS TIME AND REPORTS IT AT END OF 2023, FORTINE UPDATED AND CM AWAITING RESPONSE. Original Note: CM ATTEMPTED TO MEET W/PT TO DISCUSS DISPO HOWEVER PT RECIEVING PERSONAL CARE, CM TO REVISIT AFTER ROUNDS. CM RECEIVED REQUEST FROM [facility] FOR INSURANCE CO INFO, CONTACT NAME AND # AND CLAIM # SO THEY CAN BILL AARP.
[2025-01-29 11:41] VITALS: BP 124/64; PULSE 75; RESP 17; TEMP 36.6; O2SAT 100
[2025-01-29 16:00] VITALS: BP 104/60; PULSE 79; RESP 18; TEMP 36.7; O2SAT 100
[2025-01-29 20:00] VITALS: BP 154/70; PULSE 87; RESP 18; TEMP 36.3; O2SAT 98
[2025-01-29 23:42] VITALS: BP 126/68; PULSE 79; RESP 16; TEMP 36.7; O2SAT 96
[2025-01-30 03:39] VITALS: BP 96/53; PULSE 71; RESP 16; TEMP 36.1; O2SAT 96
[2025-01-30] MEDS: 0.9 % Sodium Chloride Flush 3 ML SYRINGE IVFLUSH (07:44)
[2025-01-30] MEDS: Aspirin Enteric Coated 81 MG TABLET.DR PO (07:44)
--- NOTE | 2025-01-30 07:53 | HO.PM.IMPN ---
Subjective Subjective Date of Service: 01/30/25 Physical Exam Vital Signs: Vital Signs: Last Vital Signs Temp 97.0 F 01/30/25 03:39 Pulse 71 01/30/25 03:39 Resp 16 01/30/25 03:39 BP 96/53 L 01/30/25 03:39 Pulse Ox 96 01/30/25 03:39 O2 Del Method Room Air 01/30/25 03:39 BMI result Body Mass Index 36.2 Objective Data Active Medications Acetaminophen (Acetaminophen 325 Mg Tablet) 650 mg PO Q6H PRN PRN Reason: Pain, Mild 1-3,fever,headache Last Admin: 01/29/25 20:01 Dose: 650 mg Documented By: ANDREI Albuterol Sulfate (Albuterol Sulfate 90 Mcg 8 Gm Inhaler) 2 puff INHALE Q4H PRN PRN Reason: shortness of breath or wheezing Albuterol/Ipratropium (Albuterol/Iprat 2.5/0.5mg 3 Ml Ampul.Neb) 3 ml INHALE Q4H PRN PRN Reason: Shortness of Breath/Wheezing Aspirin (Aspirin Enteric Coated 81 Mg Tablet.Dr) 81 mg PO DAILY [facility] Last Admin: 01/30/25 07:44 Dose: 81 mg Documented By: JAMA Calcium Carbonate (Calcium Carbonate 750 Mg Tab.Chew) 750 mg PO Q4H PRN PRN Reason: Heartburn Enoxaparin Sodium (Enoxaparin Sodium 40 Mg/0.4 Ml Syringe) 40 mg SUBCUT Q24H [facility] Last Admin: 01/29/25 20:05 Dose: 40 mg Documented By: ANDREI Lactulose (Lactulose 20 Gm/30 Ml Solution) 30 gm PO DAILY [facility] Last Admin: 01/30/25 07:48 Dose: Not Given Documented By: JAMA Non-Admin Reason: Patient Refused Magnesium Hydroxide (Milk Of Magnesia 30 Ml Oral.Susp) 30 ml PO DAILY PRN PRN Reason: Constipation Melatonin (Melatonin 3 Mg Tablet) 6 mg PO BEDTIME PRN PRN Reason: Insomnia Ondansetron HCl (Ondansetron Hcl 4 Mg/2 Ml Vial) 4 mg IVPUSH Q8H PRN PRN Reason: Nausea and Vomiting Last Admin: 01/27/25 06:07 Dose: 4 mg Documented By: YIFAN Polyethylene Glycol (Polyethylene Glycol 3350 17 Gm Powd.Pack) 17 gm PO DAILY PRN PRN Reason: Constipation Senna (Sennosides 8.6 Mg Tablet) 17.2 mg PO BEDTIME [facility] Last Admin: 01/29/25 20:01 Dose: Not Given Documented By: ANDREI Non-Admin Reason: Patient Refused Sodium Chloride (0.9 % Sodium Chloride Flush 3 Ml Syringe) 3 ml IVFLUSH QSHIFT [facility] Last Admin: 01/30/25 07:44 Dose: 3 ml Documented By: PHANLYM Labs 01/26/25 03:59 01/26/25 03:59 Quality Stroke Does the patient have a stroke diagnosis?: No Reason for No Anti-thrombotic by Day Two: N/A - Med Ordered VTE Prior VTE?: No VTE Risk Level:: Medical - moderate - high VTE Device Contraindication: N/A - Device Ordered VTE Drug Contraindication: N/A - Med Ordered
[2025-01-30 07:54] VITALS: BP 129/61; PULSE 77; RESP 18; TEMP 36.6; O2SAT 97
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
--- NOTE | 2025-01-30 10:23 | MHC.CM.PN ---
PER P.T. PT FULLY INDEP W/AND WITHOUT CANE, CANE PROVIDED FOR PT TO TAKE HOME. NO PLAN FOR REQUESTED PEER TO PEER AND SNF UPDATED. PT MEDICALLY CLEARED FOR DC HOME SELF-CARE, CM WILL PROVIDE LYFT TRANSPORT TO [facility] PER REQUEST OF PT SHE NEEDS TO ANIMAL TAXONOMIST HER PHONE. PREFERRED PHARMACY CHANGED TO [facility] SO PT CAN DC W/ANY NEW MEDS IN HAND. PT VERIFIES SHE DOES HAVE PCP KATHRYN DIXON IN [place].
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
== END 2025-01-30 12:27 | disposition home or self-care (01) | DRG 871 ==
LOC: HO.ED 14:38 → HO.EDOVER 21:33 → HO.IMC 01-26 15:03
PROVIDERS: Physician Assistant Medical; Admitting Provider Nurse Practitioner Family; Emergency Provider Emergency Medicine; PCP Physician Assistant; Visit Provider Student in an Organized Health Care Education/Training Program
DX: A41.9 Sepsis, unspecified organism (principal); G93.41 Metabolic encephalopathy; E72.20 Disorder of urea cycle metabolism, unspecified; E87.1 Hypo-osmolality and hyponatremia; D59.10 Autoimmune hemolytic anemia, unspecified; N39.0 Urinary tract infection, site not specified; I25.10 Atherosclerotic heart disease of native coronary artery without angina pectoris; D63.8 Anemia in other chronic diseases classified elsewhere; K22.2 Esophageal obstruction; J44.9 Chronic obstructive pulmonary disease, unspecified; R31.9 Hematuria, unspecified; K90.0 Celiac disease; V48.0XXA Car driver injured in noncollision transport accident in nontraffic accident, initial encounter; Z95.5 Presence of coronary angioplasty implant and graft; K75.81 Nonalcoholic steatohepatitis (NASH); K74.60 Unspecified cirrhosis of liver; K76.82 Hepatic encephalopathy; E66.9 Obesity, unspecified; Z68.36 Body mass index [BMI] 36.0-36.9, adult; Z71.3 Dietary counseling and surveillance; Z20.822 Contact with and (suspected) exposure to COVID-19; Z91.148 Patient's other noncompliance with medication regimen for other reason; Z87.442 Personal history of urinary calculi; Z79.82 Long term (current) use of aspirin; Z79.899 Other long term (current) drug therapy
CPT/HCPCS: 36415; 70450; 72125; 74177; 80048; 80053; 80307; 81001; 82140; 82607; 82803; 83540; 83605; 83880; 85025; 85610; 85730; 86850; 86900; 86901; 87040; 87086; 87088; 87186; 87507; 87635; 93005; 93306; 97116; 97162; 97166; 99285; J0131; J0696; J1200; J1650; J2405; J2765; J7120; Q9957; Q9967

== ENCOUNTER → 2025-01-25 07:55 | Outpatient (BNV) | payer MEDICARE, SELFPAY | PROVIDERS: Emergency Provider Emergency Medicine; PCP Physician Assistant; Visit Provider Internal Medicine | DX: I45.10 Unspecified right bundle-branch block (principal) | CPT/HCPCS: 93010 ==

== ENCOUNTER → 2025-01-25 08:33 | Outpatient (BNV) | payer MEDICARE, SELFPAY | PROVIDERS: Emergency Provider Emergency Medicine; PCP Physician Assistant; Visit Provider Radiology Diagnostic Radiology | DX: M47.12 Other spondylosis with myelopathy, cervical region (principal); S09.90XA Unspecified injury of head, initial encounter | CPT/HCPCS: 70450; 72125 ==

== ENCOUNTER 2025-01-25 21:11 | Outpatient (BNV) | payer MEDICARE, SELFPAY | END 2025-01-26 00:03 | PROVIDERS: Admitting Provider Nurse Practitioner Family; Emergency Provider Emergency Medicine; PCP Physician Assistant; Visit Provider General Practice | DX: N39.0 Urinary tract infection, site not specified (principal); A41.9 Sepsis, unspecified organism; K74.60 Unspecified cirrhosis of liver; K76.6 Portal hypertension; I81 Portal vein thrombosis; Z96.0 Presence of urogenital implants | CPT/HCPCS: 74177 ==

== ENCOUNTER 2025-01-25 21:11 | Outpatient (BNV) | payer MEDICARE, SELFPAY | END 2025-01-26 07:00 | PROVIDERS: Admitting Provider Nurse Practitioner Family; Emergency Provider Emergency Medicine; PCP Physician Assistant; Visit Provider Internal Medicine | DX: I51.89 Other ill-defined heart diseases (principal) | CPT/HCPCS: 93306 ==

== ENCOUNTER → 2025-01-25 21:11 | Outpatient (BNV) | payer MEDICARE, SELFPAY | PROVIDERS: Admitting Provider Nurse Practitioner Family; Emergency Provider Emergency Medicine; PCP Physician Assistant; Visit Provider Nurse Practitioner Family | DX: G93.40 Encephalopathy, unspecified (principal) | CPT/HCPCS: 99223; 99232; 99239 ==

== ENCOUNTER → 2025-01-25 21:11 | Outpatient (BNV) | payer MEDICARE, SELFPAY | PROVIDERS: Admitting Provider Nurse Practitioner Family; Emergency Provider Emergency Medicine; PCP Physician Assistant; Visit Provider Internal Medicine Gastroenterology | DX: K74.60 Unspecified cirrhosis of liver (principal); K90.0 Celiac disease | CPT/HCPCS: 99222 ==

== ENCOUNTER → 2025-01-25 21:11 | Outpatient (BNV) | payer MEDICARE, SELFPAY | PROVIDERS: Admitting Provider Nurse Practitioner Family; Emergency Provider Emergency Medicine; PCP Physician Assistant; Visit Provider Urology | DX: Z96.0 Presence of urogenital implants (principal) | CPT/HCPCS: 99024 ==

== ENCOUNTER 2025-02-07 17:45 | Observation (INO) | payer MEDICARE, SELFPAY ==
--- NOTE | 2025-02-07 | ECG_ITS ---
Test Reason : PRE PROCEDURE Blood Pressure : */* mmHG Vent. Rate : 79 BPM Atrial Rate : 79 BPM P-R Int : 222 ms QRS Dur : 134 ms QT Int : 408 ms P-R-T Axes : 63 -3 25 degrees QTcB Int : 467 ms Sinus rhythm with 1st degree A-V block Right bundle branch block Abnormal ECG When compared with ECG of 25-Jan-2025 08:16, No significant change was found Referred By: Tatiana Bell Electronically Signed By: BETH COLEY
[2025-02-07 17:58] VITALS: BP 131/75; BP 154/65; PULSE 106; PULSE 94; RESP 18; TEMP 36.6; O2SAT 100; BMI 34.4
--- OUTSIDE RECORDS SUMMARY | 2025-02-07 18:14 | XMS_ITS | Clinical Summary ---
[facility] Address [address] [place] [address] Care Team Providers Care Installer Name Role Phone Ania Browning MD [...] Last Done Comments Breast Cancer Screening 1955 Colorectal Cancer Screening: Colonoscopy 1956 Diabetes: Annual GFR (Glomerular Filtration Rate) 1956 Diabetes: Annual Foot Exam 1966 Diabetes: Annual Retina Eye Exam 1966 Pneumococcal Vaccine: 50+ Years (1 of 2 - PCV) 07/22/1975 Zoster Vaccines (1 of 2) 2006 RSV Immunization Adult Patients (1 - Risk 60-74 years 1-dose series) 2016 DTaP,Tdap,and Td Vaccines (2 - Td or Tdap) 09/10/2021 09/11/2011 Cholesterol Screening (Lipid Panel) 04/07/2022 Falls Risk Assessment 04/07/2022 Hepatitis C [...] Documents on File Type Date Recorded Patient Cut Off Saw Operator Expl anation Health Care Decision (hx) 03/31/2016 AD CARROLL DIRECTIVE Health Care Decision (hx) 03/31/2016 AD CARROLL DIRECTIVE Health Care Decision (hx) 03/31/2016 AD CARROLL DIRECTIVE Health Care Decision (hx) 03/31/2016 AD CARROLL DIRECTIVE Health Care Decision (hx) 03/31/2016 AD CARROLL DIRECTIVE Care Teams Installer Relationship Specialty Start Date End Date Ania Browning MD PCP - General Internal Medicine 12/02/21
--- NOTE | 2025-02-07 18:18 | ED_ITS ---
HPI - General Adult General Chief complaint: General Medical Stated complaint: ?partial airway obstruction Time Seen by Provider: 02/07/25 18:03 Source: patient Mode of arrival: ambulatory Limitations: no limitations History of Present Illness ED Provider: Dr. Butcher [facility] narrative: 69-year-old female history of CAD, nephrolithiasis, liver cirrhosis, esophageal strictures presented hospital today for evaluation of possible impacted food bolus. Patient stated that she was eating steak when she has sudden onset of food getting stuck. She is having trouble swallowing fluid and water is making her nauseous. Speaking in full sentences at this time. She is coughing up clear phlegm. Complaining of pain in her throat where the food bolus may be. Related Data Previous Rx's ?Medication ?Instructions ?Recorded aspirin 81 mg tablet,delayed 81 mg PO DAILY 90 days #9 0 tabs 04/21/23 release (Adult Low Dose Aspirin) albuterol sulfate 90 mcg/actuation 2 puff inhalation Q 4-6H PRN 05/18/23 aerosol inhaler shortness of breath or wheez ing #8.5 grams lactulose 10 gram/15 mL oral 30 g (45 mL) PO DAILY 30 days 01/30/25 solution #3,000 mL Allergies Allergy/AdvReac Type Severity Reaction Status Date / Time peach (PEACH) Allergy Intermediate DIFFICULTY Verified 02/07/25 18:02 BREATHING Review of Systems 2 Review of Systems: Pertinent review of systems as mentioned in HPI. All other system otherwise negative. 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 Mother No problems noted. Social History Social History Household Members: Family Housing: House Are you a primary janitor caretaker to a significant other at home: No Do you presently have visiting nurse or other home services: No Alcohol intake: former Comment: was drinking 1 drink per month stopped 4 months ago Patient Tobacco Use Status: Never used Tobacco Smoked in Last 30 Days: No e-Cigarette/Vaping Use: Never Used Second Hand Smoke Exposure: No Use of substances other than those prescribed or required for medical reasons: No Advance Directives: No Advance Directives Information Provided: No Do you have a plan to hurt others: No Plan Patient : No service: No Current occupational status: employed Current occupation: [employer] Current occupational exposures/hazards: No Cognitive needs: No Hearing needs: No Vision needs: No Physical Exam ED Exam Exam: General: Pleasant, no distress, interacting appropriately Head: Normacephalic, atraumatic ENT: oral mucosa moist, neck supple, no tracheal deviation, no stridor Cardiovascular: regular rate, regular rhythm, no murmurs, rubbing, gallops Respiratory: CTAB, no wheeze, rales, rhonchi Gastrointestinal: Soft, non distended, non tender, non guarding Neurological: Awake and alert, no facial droop noted Skin: Warm and dry Psychiatric: Appropriate mood and thoughts Vital Signs: Vital Signs - 24 hr 02/07/25 17:58 02/07/25 20:41 Temperature 97.9 F Pulse Rate 94 81 Respiratory Rate 18 18 Blood Pressure 154/65 H 133/58 L Pulse Oximetry 100 100 Oxygen Delivery Method Room Air Room Air BMI result Body Mass Index 34.4 Medications Administered Discontinued Medications Generic Name Dose Route Start Last Admin Trade Name Freq PRN Reason Stop Dose Admin Glucagon 1 mg 02/07/25 18:36 02/07/25 19:32 Glucagon Hcl 1 Mg Vial IVPUSH 02/07/25 18:37 1 mg ONCE ONE Administration Ondansetron HCl 4 mg 02/07/25 18:36 02/07/25 19:31 Ondansetron Hcl 4 Mg/2 Ml Vial IVPUSH 02/07/25 18:37 4 mg ONCE ONE Administration Medical Decision Making Medical Decision Making [facility] Narrative: 69-year-old female history of CAD, nephrolithiasis, liver cirrhosis presented hospital today for evaluation of possible impacted food bolus. Patient states she feels a piece of steak stuck in her throat. Patient's does appear to be drooling on exam. However she does not have any obstruction. We will plan to give patient some glucagon, IV Zofran for nausea and attempt to give her some carbonated drink afterward. Basic lab work will be obtained. Patient's lab work is unremarkable. Patient was unable to swallow despite glucagon. GI team was consulted. Discussed the case with Dr. García. We will plan to scope the patient tonight. Recommends admission to the hospital. Differential Diagnosis Differential Diagnoses: The differential diagnosis associated with the presentation includes Food bolus impaction of esophagus Consult Healthcare Provider Management of the patient was discussed with: Hospitalist and Decontamination Technician (Dr. García (GI)) Lab Data [facility] Lab Attestation statement: I reviewed the patient's lab results. 02/07/25 19:26 02/07/25 19:26 Labs: Lab Results 02/07/25 02/07/25 Range/Units 19:26 20:28 WBC 6.2 (4.8-10.8) X10*3/uL RBC 3.45 L (4.20-5.50) X10*6/uL Hgb 11.1 L (12.0-16.0) g/dl Hct 33.4 L (37.0-47.0) % MCV 96.8 (80.0-98.0) fL MCH 32.2 (27.0-33.0) pg MCHC 33.2 (31.0-35.0) g/dl RDW 15.0 (11.0-16.0) % Plt Count TNP MPV 11.6 (9.4-12.3) fL Immature Gran % (Auto) 0.3 (0.0-0.4) % Neut % (Auto) 66.5 (45-73) % Lymph % (Auto) 18.5 L (20-40) % [place] % (Auto) 9.2 (2-11) % Eos % (Auto) 4.7 H (0-4) % Baso % (Auto) 0.8 (0-2) % Lymph # (Auto) 1.2 (1.2-4.9) X10*3/uL [place] # (Auto) 0.6 (0.1-1.2) X10*3/uL Eos # (Auto) 0.3 (0.0-0.4) X10*3/uL Baso # (Auto) 0.1 (0.0-0.2) X10*3/uL Abs Immat Gran (auto) 0.02 (0.00-0.03) X10*3/uL Absolute Neuts (auto) 4.1 (2.0-8.3) x10*3/uL Absolute Nucleated RBC 0.000 (0.0-0.012) X10*3/uL Nucleated RBC % (auto) 0.0 (0.0-0.2) /100WBC Smear Tech's Comments VERIFIED PT 12.6 H (10.9-12.4) SEC INR 1.1 (0.9-1.1) Sodium 143 (135-145) mmol/L Potassium 4.4 (3.3-5.1) mmol/L Chloride 116 H (96-108) mmol/L Carbon Dioxide 23 (22-29) mmol/L Anion Gap 8 L (12-20) BUN 22 H (9-16) mg/dL Creatinine 1.06 (0.5-1.4) mg/dL Estim Creat Clear Calc 47.4 Estimated GFR 52 Random Glucose 99 (60-115) mg/dL Calcium 8.8 D (8.4-10.2) mg/dL Critical Care Time Critical Care Time Critical Care Time: Yes Total Critical Care Time: 38 Attestation: Time is exclusive of separately billable procedures. Time includes: direct patient care, patient reassessment, coordination of patient care, interpretation of data (laboratory data, pulse oximetry, arterial blood gases and chest xrays), review of patient's medical records, medical consultation and documentation of patient care. Procedures excluded from critical care time: central intravenous line placement and electrocardiography. Discharge Plan Discharge Clinical Impression: Esophageal obstruction, Obstruction of esophagus due to food impaction Patient Disposition: Admitted As Inpatient
[2025-02-07 19:45] LABS: Anion Gap 8 (12-20); Blood Urea Nitrogen 22 mg/dL (9-16); Calcium 8.8 mg/dL (8.4-10.2); Carbon Dioxide 23 mmol/L (22-29); Chloride 116 mmol/L (96-108); Creatinine Clr Calc Pharmacy 47.4; Estimated Glomerular Filt Rate 52; Potassium 4.4 mmol/L (3.3-5.1); Sodium 143 mmol/L (135-145)
[2025-02-07 19:49] LABS: Hematocrit 33.4 % (37.0-47.0); Hemoglobin 11.1 g/dl (12.0-16.0); Imm Gran Abs Auto 0.02 X10*3/uL (0.00-0.03); Imm Gran Pct Auto 0.3 % (0.0-0.4); Lymphocytes Absolute Auto 1.2 X10*3/uL (1.2-4.9); MANUAL DIFF FLAG SCAN; Mean Corpuscular HGB Conc 33.2 g/dl (31.0-35.0); Mean Corpuscular Hemoglobin 32.2 pg (27.0-33.0); Mean Corpuscular Volume 96.8 fL (80.0-98.0); NRBC Abs Auto 0.000 X10*3/uL (0.0-0.012); NRBC Pct Auto 0.0 /100WBC (0.0-0.2); PLT CLUMP 1; Red Blood Count 3.45 X10*6/uL (4.20-5.50); SCAN SMEAR FLAG 1
--- NOTE | 2025-02-07 19:51 | PC.NURSE ---
RN took over care of pt at 1900; KARRI Richardson assisted with putting IV access for pt and medicating per mar. Per MD, pt to drink carbonated drink after meds. PT was unable to tolerate tima cydney, threw it up. aware.
[2025-02-07 19:54] LABS: White Blood Count 6.2 X10*3/uL (4.8-10.8)
[2025-02-07 20:41] VITALS: BP 133/58; PULSE 81; RESP 18; O2SAT 100
--- NOTE | 2025-02-07 21:00 | PM.EVENT ---
Event Note Date of Service: 02/07/25 Event Note: GI Consult-Full note dictated Imp: Esophageal obstruction from meat. Refractory to trial of IV Glucagon. Rec: EGD tonight. Full consent obtained from her for this, including risks of bleeding and perforation. D/W patient in detail and she is comfortable with this plan. Thanks Time Spent With Patient Time: Total time managing care of this patient today ____ minutes.
--- NOTE | 2025-02-07 21:04 | MHC.SHP ---
Pre-Procedural Eval Section A - 24 Hr Update-Section A only Date of Service: 02/07/25 The patient is an INPATIENT: No The patient has been examined within 24 hours of the surgical procedure. The History & Physical has been completed within 30 days and I have reviewed it.: Yes Section B - Complete if H&P > 30 days Chief Complaint: ?partial airway obstruction Allergies: Allergies Allergy/AdvReac Type Severity Reaction Status Date / Time peach (PEACH) Allergy Intermediate DIFFICULTY Verified 02/07/25 18:02 BREATHING Plan I have reviewed the history and physical and performed a pertinent physical examination on my patient. No changes have occurred unless specified. Time Spent With Patient Time: Total time managing care of this patient today ____ minutes.
[2025-02-07 21:11] LABS: INTERNATIONAL NORM RATIO 1.1 (0.9-1.1); Prothrombin Time 12.6 SEC (10.9-12.4)
--- NOTE | 2025-02-07 21:20 | PC.NURSE ---
RN gave report to BEN DAY ARTIST- Pt to be transfered to OR in about 10 min.
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
--- NOTE | 2025-02-07 21:48 | PC.NURSE ---
pt was picked up by OR team @ [id number] for surgical procedure. Possible pending admission. Pts belongings still in ED room.
[2025-02-07 22:20] VITALS: BP 101/46; PULSE 78; RESP 13; TEMP 36.4; O2SAT 98
--- NOTE | 2025-02-07 22:27 | PM.OP ---
Brief Operative Note Date of Service: 02/07/25 Pre-op diagnosis: Esophageal obstruction Post-op diagnosis: other (Same) Procedure: EGD with removal of food bolus Surgeon: Javier García MD Anesthesia: MAC Was an Metal Spray Operator used for this Procedure?: No Estimated blood loss (mL): 0 Pathology: none sent Condition: stable Disposition: PACU
--- NOTE | 2025-02-07 22:29 | PM.EVENT ---
Event Note Date of Service: 02/07/25 Event Note: GI-EGD with removal of food bolus--Full note dictated Findings: 1. Food bolus noted at at approx. 20cm in the esophagus and pushed gently and easily into the stomach 2. Hiatal hernia noted with EG Junction at approx. 33cm--no stricture, no varices 3. Diffuse gastritis/gastropathy 4. Proximal esophagus with area of some mucosal erythema and friability, as well as some relative narrowing--no dilation was performed Recs: IV PPI for 24 hours, then omeprazole 40mg daily. Careful and very soft diet. F/U with Dr. Cross. Thanks Time Spent With Patient Time: Total time managing care of this patient today ____ minutes.
[2025-02-07 22:35] VITALS: BP 112/49; PULSE 76; RESP 18; TEMP 37.3; O2SAT 99
[2025-02-07] MEDS: 0.9 % Sodium Chloride Flush 3 ML SYRINGE IVFLUSH (23:01)
[2025-02-07] MEDS: Lactated Ringers 1,000 ML 100 ML IVCONT (23:01)
[2025-02-07 23:09] VITALS: BP 128/61; PULSE 75; RESP 18; TEMP 36.6; O2SAT 99
[2025-02-07 23:16] VITALS: BMI 33.2
[2025-02-08 03:25] VITALS: BP 110/53; PULSE 56; RESP 18; TEMP 36.4; O2SAT 97
--- NOTE | 2025-02-08 04:05 | OP_ITS ---
DATE OF SERVICE: 02/07/2025 SURGEON: Javier García MD INDICATIONS: The patient presents for evaluation of esophageal obstruction. Full consent has been obtained from her for this, including risks of bleeding and perforation. PREOPERATIVE DIAGNOSIS: Esophageal obstruction. POSTOPERATIVE DIAGNOSIS: PROCEDURE PERFORMED: Esophagogastroduodenoscopy with removal of esophageal food bolus. ESTIMATED BLOOD LOSS: COMPLICATIONS: ANESTHESIA: Monitored anesthesia care. ASSISTANTS: SPECIMENS: POSTOPERATIVE DIAGNOSES: Esophageal obstruction, hiatal hernia, gastritis, and gastropathy. DESCRIPTION OF PROCEDURE: The patient was placed in the left lateral decubitus position. The Olympus video gastroscope was passed in the posterior oropharynx and upper esophagus under direct vision. In the very proximal esophagus between 20 and 25 cm was a food bolus that was pushed gently and easily into the stomach. The scope was advanced to the pylorus. The duodenum was cannulated to the descending portion. The duodenum including the bulb appeared normal without mass or ulceration. The scope was withdrawn back to the stomach. The gastric antrum and body had changes consistent with gastritis and/or gastropathy. There was good peristalsis. The scope was retroflexed visualizing the proximal stomach carefully which also appeared to have mucosal changes consistent with gastropathy. There were no varices. The scope was straightened and withdrawn back to the esophagus. The gastroesophageal junction was seen at approximately 33 cm and appeared slightly irregular consistent with reflux but no evidence of any Grace's esophagus or esophagitis. There were no varices. The scope was withdrawn through the remainder of the esophagus. The proximal esophagus between 20 and 25 cm had some appearance of some relative narrowing and some mucosal friability and disruption from the food bolus but no definitive stricture. There was no ulceration or mass. The scope was withdrawn from the patient. She tolerated the procedure well and was returned to the recovery area in stable condition. IMPRESSION: 1. Esophageal food bolus, removed endoscopically. 2. Gastritis and/or gastropathy. 3. Hiatal hernia. 4. Relative narrowing in proximal esophagus. PLAN: The patient will be kept overnight given her social situation of being homeless at the present time. She will be kept on an IV PPI overnight and kept on a soft, careful diet. She will be followed up by Dr. Cross. She will be discharged with a prescription for an oral PPI. MD JEANNA Fernandez/LEE / [id number] MTDD
--- NOTE | 2025-02-08 04:25 | CONS_ITS ---
DATE OF SERVICE: 02/07/2025 REASON FOR CONSULTATION: Esophageal obstruction and dysphagia. HISTORY OF PRESENT ILLNESS: The patient is a 69-year-old female who was eating beef stew for dinner and developed an esophageal obstruction with inability to swallow any liquids nor saliva. She came to the ER where she was treated with IV glucagon, but her symptoms have remained refractory. She continues to have to spit her saliva out and cannot swallow anything. She does have a known history of a proximal esophageal stricture and was last evaluated with upper endoscopy by Dr. Cross on January 09. This procedure describes a stricture at 24 cm in the esophagus which was dilated by passage of the scope. There was no evidence of any varices noted. There was some gastritis. She did have an upper endoscopy on November [address] Cross with the proximal stricture dilated with an 11 mm balloon at that time. The patient denies any chest pain, difficulty in breathing, or neck pain. She does have some discomfort in the region of the sternal notch from the obstruction. She denies any abdominal pain. There has been no melena nor hematochezia. She denies any hematemesis nor coffee-ground emesis. Her past history is notable for underlying cirrhosis from what appears to be autoimmune hepatitis. She denies any alcohol use, but I am not entirely certain if that is the case. She reports that her only medication at home is aspirin. She uses 81 mg daily. She denies any NSAID use. PAST MEDICAL HISTORY: She describes cholecystectomy and carpal tunnel surgery. She describes liver biopsy. Medical problems include previous NC. Asthma. Cirrhosis in relation to autoimmune hepatitis. Celiac disease. Kidney stones. She had a recent left ureteral stent. She denies history of diabetes or stroke. SOCIAL HISTORY: She describes that she is presently homeless. She is single. She denies tobacco or alcohol. FAMILY HISTORY: Noncontributory. REVIEW OF SYSTEMS: CONSTITUTIONAL: She had been feeling at baseline this evening. CARDIAC: No chest pain. PULMONARY: No coughing or hemoptysis. GI: As above. URINARY: No dysuria. No hematuria. NEUROLOGIC: No headache or seizures. PHYSICAL EXAMINATION: GENERAL: The patient is an alert, cooperative female. She appears comfortable. She is still having to spit her secretions into a bag. NECK: Supple without lymphadenopathy. No crepitus. CHEST WALL: Without crepitus. CARDIAC: Normal S1, S2. ABDOMEN: Soft, nondistended, nontender without any obvious ascites. EXTREMITIES: Revealed bilateral pretibial edema. NEUROLOGIC: She is alert and oriented and answers questions appropriately. LABORATORY DATA: White blood cell count 6.2, hemoglobin 11.1, there is no platelet count which has been the case on her CBCs for quite some time now. This dates back to 2023. Her PT is 12.6 with INR 1.1. Normal electrolytes. BUN 22, creatinine 1.1. Her last liver profile on January 25 showed a total bilirubin 1.3, AST 43, ALT 13, and alkaline phosphatase 94. IMPRESSION: Patient presents with esophageal obstruction in relation to a proximal esophageal stricture documented on previous upper endoscopy as recently as early in January. Given her refractory symptoms and ongoing inability to swallow saliva, she will undergo upper endoscopy this evening. Full consent has been obtained from her for this, including risks of bleeding and perforation. Given her social situation, she will need to be admitted at least overnight. This will be arranged for by the hospitalist. This has all been discussed in detail with the patient and she is comfortable with the plan. Thank you for the consultation. MD JEANNA Fernandez/LEE / [id number] JOSIAS
--- NOTE | 2025-02-08 05:07 | PM.EVENT ---
Event Note Date of Service: 02/08/25 Event Note: Pt underwent upper EGD with Dr García and food bolus was successfully removed. Plan per Dr. García is as follows: IMPRESSION: 1. Esophageal food bolus, relieved endoscopically. 2. Gastritis and/or gastropathy. 3. Hiatal hernia. 4. Relative narrowing in proximal esophagus. PLAN: The patient will be kept overnight given her social situation of being homeless at the present time. She will be kept on IV PPI and kept on a soft careful diet. She will be followed up by Dr. Cross. PPI ordered and diet updated to soft! Pt khai be seen by Dr. Cross in AM. CM consulted due to pt's current status of being homeless. Time Spent With Patient Time: Total time managing care of this patient today ____ minutes.
[2025-02-08 05:53] LABS: MANUAL DIFF FLAG NO
[2025-02-08 06:04] LABS: Hematocrit 31.2 % (37.0-47.0); Hemoglobin 10.0 g/dl (12.0-16.0); Imm Gran Abs Auto 0.01 X10*3/uL (0.00-0.03); Imm Gran Pct Auto 0.2 % (0.0-0.4); Lymphocytes Absolute Auto 1.5 X10*3/uL (1.2-4.9); Mean Corpuscular HGB Conc 32.1 g/dl (31.0-35.0); Mean Corpuscular Hemoglobin 32.2 pg (27.0-33.0); Mean Corpuscular Volume 100.3 fL (80.0-98.0); NRBC Abs Auto 0.020 X10*3/uL (0.0-0.012); NRBC Pct Auto 0.5 /100WBC (0.0-0.2); Red Blood Count 3.11 X10*6/uL (4.20-5.50); White Blood Count 4.2 X10*3/uL (4.8-10.8)
[2025-02-08 06:06] LABS: Platelet Count 73 X10*3/uL (160-400)
[2025-02-08 06:21] LABS: Anion Gap 8 (12-20); Blood Urea Nitrogen 22 mg/dL (9-16); Calcium 8.1 mg/dL (8.4-10.2); Carbon Dioxide 22 mmol/L (22-29); Chloride 116 mmol/L (96-108); Creatinine Clr Calc Pharmacy 47.9; Estimated Glomerular Filt Rate 53; Potassium 4.3 mmol/L (3.3-5.1); Sodium 142 mmol/L (135-145)
[2025-02-08 07:38] VITALS: BP 128/60; PULSE 71; RESP 18; TEMP 36.9; O2SAT 99
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
--- NOTE | 2025-02-08 09:13 | PHA.MEDREC ---
Pharmacy Consult ? Medication Reconciliation Pharmacy has completed the medication reconciliation. Spoke with pt and she confirmed her medications. Pt confirmed she takes Aspirin 81mg chewable tabs QD and she was still using her Albuterol inhaler as needed and states she just ran out of that recently and is waiting to get a new refill from her
--- NOTE | 2025-02-08 09:18 | PHA.MEDREC ---
Addendum entered by Juan Diego Jhaveri PharmD 02/08/25 09:22: reviewed Original Note: Pharmacy Consult ? Medication Reconciliation Pharmacy has completed the medication reconciliation. Spoke with pt and she confirmed her medications. Pt confirmed she takes Aspirin 81mg chewable tabs QD and she was still using her Albuterol inhaler as needed and states she just ran out of that recently and is waiting to get a new refill from her Dr; called pt pharmacy to see last time that was filled since we have no claims and that was last filled 05/2023.
[2025-02-08 11:33] VITALS: BP 122/60; PULSE 75; RESP 18; TEMP 36.3; O2SAT 97
--- NOTE | 2025-02-08 12:24 | MHC.SL.SWA ---
Speech Pathologist Impression: Risk of Aspiration Due to: Dysphasia Diet Status: Liquid Consistency and Strategies for Safe Swallow: Liquid Intake Recommendation: Thin Liquid Intake Strategies: Solid Food Consistency: Dietary Recommendations: Chopped/Advanced (NDD3) Additional Modifications to Solid Foods: Oral Medication Intake: Whole with Puree Please contact the pharmacy regarding appropriate crushable or liquid drug formulations that are available whenever modified delivery is recommended. Compensatory Strategies and Precautions to be Taken for Safe Swallow: Supervision While Eating and Drinking for Safe Swallow: None Needed Foods to Avoid: Too large pieces of food, tough, difficult to chew solids. Swallowing Recommended Treatments: Recommendation for Speech: NA:Typical Evaluation Comment: Patient presents with all aspects of swallow above the level of the esophagus WFL. Discussed with patient strategies per esophageal dysmotility: elect softer foods, small bites/sips, chew food thoroughly, alternate liquids and solids. Patient currently on chopped/advanced diet with thin liquids per GI recommendations which should continue and further dietary recommendations are deferred to GI. No further speech/swallow service indicated, will d/c speech. PA, RD notified of recommendations by secure text, RN in person. Frequency/Duration: Date Range for Service Req: Timeline to reassess: Colon Therapist Clinican/Clinical Fellow: No Supervisory Statement: I have reviewed and agree with the student/clinical fellow's documentation: N/A Speech Language Pathologist: Verenice Montemayor M.A., CCC-CLASS B DRIVER
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
== END 2025-02-08 14:43 | disposition home or self-care (01) ==
LOC: HO.ED 18:11 → HO.SSS 22:05 → HO.EDOVER 22:36 → HO.S3 22:38
PROVIDERS: Internal Medicine; Nurse Practitioner Family; Admitting Provider Internal Medicine; Emergency Provider Student in an Organized Health Care Education/Training Program; PCP Physician Assistant; Visit Provider Physician Assistant Medical
PROC: 0DJ08ZZ Inspection of Upper Intestinal Tract, Via Natural or Artificial Opening Endoscopic (ICD-10-PCS; CPT 43235; principal; 2025-02-07 21:30)
DX: K22.2 Esophageal obstruction (principal); T18.128A Food in esophagus causing other injury, initial encounter; W44.F3XA Food entering into or through a natural orifice, initial encounter; Y93.9 Activity, unspecified; Y92.9 Unspecified place or not applicable; Y99.9 Unspecified external cause status; R13.10 Dysphagia, unspecified; K74.60 Unspecified cirrhosis of liver; I25.10 Atherosclerotic heart disease of native coronary artery without angina pectoris; K08.89 Other specified disorders of teeth and supporting structures; Z59.00 Homelessness unspecified; K29.70 Gastritis, unspecified, without bleeding; K44.9 Diaphragmatic hernia without obstruction or gangrene
CPT/HCPCS: 43247; 36415; 80048; 85025; 85610; 92610; 93005; 96361; 96365; 96375; 96376; 99221; 99285; J0131; J1610; J2003; J2405; J2470; J2704; J3010; J7120

== ENCOUNTER → 2025-02-07 21:44 | Outpatient (BNV) | payer MEDICARE, SELFPAY | PROVIDERS: Admitting Provider Internal Medicine; Emergency Provider Student in an Organized Health Care Education/Training Program; PCP Physician Assistant; Visit Provider Internal Medicine | DX: I44.0 Atrioventricular block, first degree (principal); I45.10 Unspecified right bundle-branch block | CPT/HCPCS: 93010 ==

== ENCOUNTER → 2025-02-07 22:15 | Outpatient (BNV) | payer MEDICARE, SELFPAY | PROVIDERS: Admitting Provider Internal Medicine; Emergency Provider Student in an Organized Health Care Education/Training Program; PCP Physician Assistant; Visit Provider Nurse Practitioner Family | DX: T18.128A Food in esophagus causing other injury, initial encounter (principal); W44.F3XA Food entering into or through a natural orifice, initial encounter; K22.2 Esophageal obstruction | CPT/HCPCS: 99239 ==

== ENCOUNTER 2025-02-08 16:14 | Emergency (ER) | payer MEDICARE, SELFPAY ==
[2025-02-08 16:25] VITALS: BP 142/70; PULSE 80; O2SAT 99
[2025-02-08 16:33] VITALS: BP 153/60; PULSE 76; RESP 16; TEMP 36.7; O2SAT 98; BMI 32.6
[2025-02-08 16:34] VITALS: BP 153/60; PULSE 79; RESP 18; TEMP 36.7; O2SAT 98
[2025-02-08 16:59] LABS: Appearance Urine Turbid; Glucose Urine UA Negative (Negative); PH 5.5 (5.0-9.0); Specific Gravity - Urine 1.015 (1.005-1.025); UMIC TRIGGER UACC YES
[2025-02-08 17:04] LABS: UACC Culture Trigger YES
--- OUTSIDE RECORDS SUMMARY | 2025-02-08 17:09 | XMS_ITS | Clinical Summary ---
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
--- NOTE | 2025-02-08 19:15 | PC.NURSE ---
report given to KARRI Vega in overflow- pt to be moved to Overflow 5
[2025-02-08 19:49] VITALS: BP 144/67; PULSE 79; RESP 16; TEMP 36.8; O2SAT 100
--- NOTE | 2025-02-08 21:11 | PC.ADMIT ---
Patient arrived from ED alert/oriented, currently denies pain. Skin is intact. Patient needs pills cut into pieces or crushed if possible for ease of swallowing d/t previous esophageal stricture and complications. Ambulates indepedenty with cane. VSS, lungs clear. No issues reported with bowels or bladder. Patient understands discharge instructions and plan, case management here tonight to explain plan to her. No acute issues. Safety measures in place.
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
[2025-02-09 01:13] VITALS: RESP 16
[2025-02-09 05:57] VITALS: BP 110/60; PULSE 74; RESP 16; TEMP 36.9; O2SAT 97
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
[2025-02-09 14:00] VITALS: BP 123/61; PULSE 84; RESP 16; TEMP 36.7; O2SAT 97
[2025-02-09 14:36] VITALS: BP 123/61; PULSE 84; RESP 16; TEMP 36.7; O2SAT 97
== END 2025-02-09 14:42 | disposition home or self-care (01) ==
PROVIDERS: Emergency Provider Emergency Medicine Emergency Medical Services; PCP Physician Assistant
DX: M54.50 Low back pain, unspecified (principal); R07.0 Pain in throat; R35.0 Frequency of micturition; R13.10 Dysphagia, unspecified; R26.81 Unsteadiness on feet; Z59.00 Homelessness unspecified; Z79.899 Other long term (current) drug therapy
CPT/HCPCS: 81001; 81003; 87086; 87088; 87186; 97161; 99284

== ENCOUNTER 2025-02-28 14:54 | Outpatient (AMB) | payer MEDICARE, SELFPAY ==
--- NOTE | 2025-02-28 15:08 | MHC.OFFVIS ---
Intake Visit Reasons: Stent Removal Intake Note: Patient presents to the office today for a stent removal Urology Meds:None Blood thinners:None Antibiotic Allergy:None Lot #:[id number] Exp:10/17/27 Allergies peach (PEACH) Allergy (Intermediate, Verified 02/28/25 15:08) DIFFICULTY BREATHING Medication List - Last Reconciled 02/28/25 by Chuyita Ratliff MD albuterol sulfate 90 mcg/actuation 2 puffs inhalation Q4-6H PRN aspirin 81 mg PO DAILY cephalexin 500 mg PO TID 5 days meclizine 25 mg PO TID nitrofurantoin monohyd/m-cryst 100 mg (Macrobid) 100 mg PO BID 7 days omeprazole 40 mg PO DAILY 90 days HPI Comments Details: 02/28/25--Claudia is followed for nephrolithiasis. Status post ESWL and ureteral stent placement. Here for stent removal. CT scan 01/26/2025 no stones seen along the stent. Office cystoscopy with stent removal today. Follow-up in 6 months with renal ultrasound. Urine is nitrite positive. We will send urine for culture and empirically start antibiotics. 12/29/24--Here for follow up. S/P left ESWL on 11/08/24--LV--10/26/24--s/p-Cystoscopy, bladder biopsies, transurethral resection bladder tumor, Fulguration, bilateral retrogrades, left ureteral stent size 7 Latvian x 24 cm-- on 10/10/24 - The patient is a 69-year-old female presenting with nephrolithiasis and hematuria. - Nephrolithiasis: The patient has been monitored for left nephrolithiasis, with a staghorn calculus identified in the left renal pelvis on a CT scan dated 01/04/24, and measured 1.6 x 1.9 cm on a follow-up scan on 08/23/24. - Hematuria: The patient has a history of hematuria and underwent a cystoscopy with bladder biopsy on 10/10/24, path results: chronic cystitis without malignancy. - Urinary retention: Following surgery, the patient experienced urinary retention necessitating catheterization, which was resolved after catheter placement. Urinary Symptoms Review - Urinary retention post-surgery requiring catheterization, resolved after catheter placement. Results - CT scan on 01/04/24: Staghorn calculus in the left renal pelvis. - CT scan on 08/23/24: Staghorn calculus measuring 1.6 x 1.9 cm in the left renal pelvis. - Cystoscopy with bladder biopsy on 10/10/24: Chronic cystitis, negative for malignancy. Discussion Notes I discussed with the patient the findings of the cystoscopy and bladder biopsy, which showed chronic cystitis without malignancy. We reviewed the CT scan results indicating a staghorn calculus in the left renal pelvis. I explained the upcoming shockwave lithotripsy scheduled for November 08 to address the kidney stone. I advised the patient to remain off aspirin until after her throat procedure next week. 09/19/24--Claudia is a 69-year-old female with past medical history significant for coronary artery disease she is scheduled for follow-up due to left nephrolithiasis and follow-up abnormal soft tissue changes, possible lesion in the left kidney. The patient had a CT abdomen with and without IV contrast. Findings consistent with left staghorn calculus and 1.9 cm enhancing suspicious lesion. I have discussed treatment options to consider including left ESWL for the staghorn calculus. Further evaluation of lesion with MRI. Right kidney is atrophic. She complains of persistent blood in the urine. Plan will be for cystoscopy bilateral retrogrades, ureteroscopy. Possible left ureteral stent. Patient to stop aspirin 10-14 days prior to procedure. MRI for further evaluation of suspicious mass left kidney 03/29/24--Claudia is here for fu. She states she continues workup with Hematology and is being referred to Nephrology due to proteinuria. UA - persistent hematuria. She denies dysuria. Will send urine for FISH, discussed further evaluation with cytoscopy bladder biopsies, bilateral retrogrades, possible left ureteroscopy, will get a CT abd/pelvis as well to reevaluate finding on left kidney. 01/05/24--Claudia is a 68-year-old female who was initially evaluated as a New patient on 11/18/23. Here for office cystoscopy. The pt was admitted to [facility] in August for an NV. She states that 2 cardiac stents were placed. She states she had one cardiac stent placed in 2020. She was restarted on Brilinta. She states that she also has low platelets and is scheduled to see Hematology. During hospitalizaion, at [facility] she was told she had kidney stones. She had CT imaging that noted a 1.7 linear calcification of the left renal pelvis and soft tissue changes which may be inflammatory versus neoplastic changes. The patient has had a history of kidney stones and has seen Dr. Salcido in the past. Office cystoscopy- mild erythematous changes. CTAP- 01/04/24--KIDNEYS AND URETERS: There is right renal cortical thinning. The left kidney is normal in size, shape, and attenuation. No hydronephrosis, hydroureter, or calculi seen. There is ill-defined circumferential soft tissue opacity adjacent to the left renal pelvis and the proximal left The left ureteropelvic junction appears narrowed. 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 Mother No problems noted. Social History Household Members: Family Housing: Homeless Are you a primary residential child care counselor to a significant other at home: No Do you presently have visiting nurse or other home services: No Alcohol intake: former Comment: was drinking 1 drink per month stopped 4 months ago Patient Tobacco Use Status: Never used Tobacco e-Cigarette/Vaping Use: Never Used Second Hand Smoke Exposure: No service: No Current occupational status: employed Current occupation: [employer] Current occupational exposures/hazards: No Cognitive needs: No Hearing needs: No Vision needs: No Review of Systems Const All systems reviewed & are unremarkable except as noted in HPI and below Reports no additional complaints Eyes Reports no additional complaints ENT Reports no additional complaints Card Reports no additional complaints Resp Reports no additional complaints GI Reports no additional complaints Reports as per HPI Musc Reports no additional complaints Skin/Breast Reports system reviewed and no additional complaints, except as documented Neuro Reports no additional complaints Psych Reports no additional complaints Endo Reports no additional complaints Kobi/Lymph Reports no additional complaints Aller/Immun Reports no additional complaints Office Procedures Cystoscopy Consent Discussed risk and benefit or proposed procedure with the patient. Information consent for procedure given to the patient. Discussed technical aspects, risks, benefits and alternatives in full. Addressed all of the patient's questions and concerns regarding the procedure. The patient demonstrated knowledge and understanding. They wish to proceed with this procedure. Preparation The patient was prepped in the usual manner. A accounting associate was present and in the room. Genitalia was prepped with betadine solution in a sterile manner. Lidocaine Jelly 2% was placed into the urethra and 16Fr flexible Olympus cystoscope was inserted into the meatus after adequate lubrication. Time out per protocol performed. Speculum used as indicated for adequate visualization of urethra, the flexible cystoscope is passed transurethrally: Cystoscopy findings: mild edema ureteral orifice which is expected, distal end of ureteral stent visualized. The grasping forceps were used and the stent was removed without difficulty. [id number] with stent removal DISPOSABLE SCOPE URO-G FLEXIBLE SCOPE Procedure code (CPT) selection complete Office Meds lidocaine HCl 2 % mucosal jelly in applicator Performing Provider: Chuyita Ratliff MD Performing Location: [facility] Administered by: Sara Samayoa RN on 02/28/25 15:30 Dose Route Admin Location Dispensed Lot Number Expiration Date [facility] Doughnut Icer Machine 10 mL intra-urethral 20 mL ciprofloxacin HCl 500 mg tablet Performing Provider: Chuyita Ratliff MD Performing Location: [facility] Administered by: Sara Samayoa RN on 02/28/25 15:30 Dose Route Admin Location Dispensed Lot Number Expiration Date [facility] Doughnut Icer Machine 500 mg PO 1 tab naproxen 500 mg tablet Performing Provider: Chuyita Ratliff MD Performing Location: [facility] Administered by: Sraa Samayoa RN on 02/28/25 15:30 Dose Route Admin Location Dispensed Lot Number Expiration Date [facility] Doughnut Icer Machine 500 mg PO 1 tab phenazopyridine 200 mg tablet Performing Provider: Chuyita Ratliff MD Performing [facility] Documented (not given) by: Sara Samayoa RN on 02/28/25 15:30 Dose Route Admin Location Dispensed Lot Number Expiration Date [facility] Doughnut Icer Machine 200 mg PO tab Results Reviewed Results Reviewed: Date of Service: 01/26/25 Procedure(s): CT abdomen pelvis w IV con Accession Number(s): [id number] cc: Ray,Tatiana SEAM FINISHER-; Elizabeth Agudelo~ Report Number: [id number]: Total DLP = 1070.00 mGy-cm Reason for Exam: sepsis UTI hx of stones CLINICAL HISTORY: sepsis UTI hx of stones CT abdomen and pelvis with contrast Comparison: MR - MR ABDOMEN WO/W CON - 09/24/24 16:[address]/AK/SR - CT ABDOMEN WO/W IV CON - 08/23/24 13:26 EDT Findings: Linear basilar subsegmental atelectasis or pleural-parenchymal scarring. Liver is nodular, cirrhotic. Gallbladder is unremarkable. The pancreas is within normal limits. Spleen is enlarged. Adrenal glands are within normal limits. There is peripheral wall thickening of the portal vein suggesting nonocclusive thrombus. The right kidney is atrophic or hypoplastic. A ureteral stent is in place in the left kidney. Mild left perinephric fat stranding is present. Varicose portal venous collateral veins are present. Fluid throughout the distal large bowel suggesting abnormal motility. No CT evidence of bowel obstruction. Atherosclerotic vascular calcifications are present. Pelvic contents unremarkable. Normal appendix. Mild superior endplate compression of L3 stable since prior MRI. IMPRESSION: 1. Left ureteral stent in place. Mild perinephric fat stranding or inflammatory changes. 2. Cirrhosis with sequela of portal venous hypertension. 3. Nonocclusive portal vein thrombus Date of Service: 12/20/24 EXAMINATION: US KIDNEY BILATERAL HISTORY: N20.0 - Calculus of kidney TECHNIQUE: Real-time grayscale ultrasound imaging of the kidneys was performed and images were reviewed. COMPARISON: Correlation is made with an abdominal ultrasound dated 12/22/2023. FINDINGS: Right kidney: The right kidney measures 7.0 x 4.7 x 4.7 cm. Evaluation is limited by overlying bowel gas. Renal parenchymal echotexture and thickness are grossly normal. There are no definite masses. There is no hydronephrosis or renal calculi. Left Kidney: The left kidney measures 10.5 x 4.7 x 6.7 cm. Renal parenchymal echotexture and thickness are normal. There are no masses. There is a nonobstructing 3 mm calculus in the interpolar region. There is no hydronephrosis. IMPRESSION: Limited visualization of the right kidney due to bowel gas. 3 mm nonobstructing left renal calculus. DD/ EXAMINATION: MR ABDOMEN WITHOUT THEN WITH IV CONTRAST HISTORY: N28.89 - Other specified disorders of kidney and ureter COMPARISON: Correlation is made with a CT of the abdomen dated 08/23/2024. TECHNIQUE: Axial in and out of phase T1-weighted gradient echo, axial diffusion weighted, and axial and coronal HASTE T2 with fat saturation images were obtained through the abdomen. Subsequently, fat suppressed axial and coronal T1-weighted images were obtained after the intravenous administration of 7.5 mL Gadavist. FINDINGS: Liver: The liver demonstrates a nodular contour, consistent with cirrhosis. There is loss of signal intensity within the liver on in phase imaging when compared to out of phase imaging, compatible with iron overload. There is no enhancing liver mass. The hepatic veins are patent. There is a filling defect in the main portal vein, consistent with thrombus. There is no intra- or extrahepatic biliary dilatation. Gallbladder: The patient is status post cholecystectomy. Spleen: The spleen is enlarged. Pancreas: The pancreas is unremarkable. The pancreatic duct is normal in caliber. Adrenals: The adrenal glands are unremarkable. Kidneys: There is scarring at the lower pole of the right kidney. There is hypointensity in the left renal collecting system corresponding to the calculus noted on CT. There is moderate inflammation about the left renal pelvis with enhancement of the schmidt of the renal pelvis and proximal ureter as noted on CT. No left renal mass is identified to correspond to the abnormality seen on prior CT. Lymph nodes: There is no retroperitoneal lymphadenopathy in the upper abdomen. Multiple vascular collaterals are seen in the retroperitoneum. Date of Service: 08/23/24 EXAMINATION: CT ABDOMEN WITHOUT AND WITH CONTRAST CLINICAL INFORMATION: R93.429 COMPARISON: CT urogram 01/04/2024. TECHNIQUE: Contiguous axial thin section helical images of the abdomen were performed before and after the administration of 85 mL of Omnipaque 350 intravenous contrast. The data set was reformatted in the coronal and sagittal planes and reviewed on an independent workstation. This CT examination was performed using dose optimization techniques as appropriate, variously including the following: *Automated exposure control *Adjustment of mA and/or kV according to patient size (this includes techniques or standardized protocols for targeted exams where dose is matched to indication/reason for exam; i.e. extremities or head) *Use of iterative reconstruction technique FINDINGS: LUNG BASES: There is linear type atelectasis both lung bases. There are no effusions. There are no suspicious nodules or consolidations. There is mild cardiac enlargement. There is no pericardial effusion. LIVER, GALLBLADDER, AND BILIARY TREE: Cirrhotic configuration of liver with macro nodularity of the hepatic contour. No suspicious focal lesion. No intra or extra hepatic biliary dilatation. The gallbladder is surgically absent. PANCREAS: Normal without focal lesion. SPLEEN: There is splenomegaly, with the spleen measuring approximately 15.2 cm in AP diameter. ADRENAL GLANDS: Normal. KIDNEYS: RIGHT KIDNEY: The right kidney is atrophic. There is right renal cortical scarring, particularly involving the lower pole. There are no right renal calculi and there is no right hydronephrosis. LEFT KIDNEY: There is compensatory hypertrophy of the left kidney. Within the lateral upper cortex, there is a very subtle hypoattenuating enhancing oval lesion measuring 1.9 x 1.9 x 2.5 cm (series 7, image 78; series 4, image 71). This is a suspicious finding. No additional renal cortical lesions. Within the renal pelvis, there is redemonstration of a staghorn calculus measuring approximately 1.6 x 0.5 x 1.9 cm, with abundant surrounding inflammatory stranding. This has a similar appearance to the prior exam. There is no minimal hydronephrosis, and there is enhancement of the urothelium, likely inflammatory. BOWEL LOOPS: Imaged bowel structures demonstrate mild diverticulosis of the colon, predominantly involving the descending colon. Small bowel is normal. The GE junction, stomach, and duodenum appear normal. LYMPH NODES: None enlarged by size criteria. VASCULAR: Mild to moderate calcific atheromatous disease of the aorta and its branches. There is no aneurysm. OSSEOUS STRUCTURES: No suspicious lytic or blastic bone lesion identified. There is minimal wedging of the inferior endplate of L2, chronic. There are degenerative spinal changes, mild. There is a mild to moderate levoconvex thoracolumbar scoliosis, apex at L2. Scoliosis centered IMPRESSION: 1. Stable staghorn calculus in the left renal pelvis with surrounding pelvic inflammation, and urothelial thin enhancement. Mild hydronephrosis of the left kidney. 2. Subtle oval hypoattenuating lesion in the mid to upper pole cortex of the left kidney measuring 1.9 x 1.9 x 2.5 cm, new from the prior exam. Neoplasm is not excluded. Correlation with ultrasound recommended. 3. Atrophy of the right kidney. No right hydronephrosis or calculus. 4. Hepatic cirrhosis. Splenomegaly. 5. Mild cardiomegaly. Procedure(s): CT abdomen wo/w IV con EXAMINATION: CT ABDOMEN WITHOUT AND WITH CONTRAST CLINICAL INFORMATION: R93.429 COMPARISON: CT urogram 01/04/2024. TECHNIQUE: Contiguous axial thin section helical images of the abdomen were performed before and after the administration of 85 mL of Omnipaque 350 intravenous contrast. The data set was reformatted in the coronal and sagittal planes and reviewed on an independent workstation. This CT examination was performed using dose optimization techniques as appropriate, variously including the following: *Automated exposure control *Adjustment of mA and/or kV according to patient size (this includes techniques or standardized protocols for targeted exams where dose is matched to indication/reason for exam; i.e. extremities or head) *Use of iterative reconstruction technique FINDINGS: LUNG BASES: There is linear type atelectasis both lung bases. There are no effusions. There are no suspicious nodules or consolidations. There is mild cardiac enlargement. There is no pericardial effusion. LIVER, GALLBLADDER, AND BILIARY TREE: Cirrhotic configuration of liver with macro nodularity of the hepatic contour. No suspicious focal lesion. No intra or extra hepatic biliary dilatation. The gallbladder is surgically absent. PANCREAS: Normal without focal lesion. SPLEEN: There is splenomegaly, with the spleen measuring approximately 15.2 cm in AP diameter. ADRENAL GLANDS: Normal. KIDNEYS: RIGHT KIDNEY: The right kidney is atrophic. There is right renal cortical scarring, particularly involving the lower pole. There are no right renal calculi and there is no right hydronephrosis. LEFT KIDNEY: There is compensatory hypertrophy of the left kidney. Within the lateral upper cortex, there is a very subtle hypoattenuating enhancing oval lesion measuring 1.9 x 1.9 x 2.5 cm (series 7, image 78; series 4, image 71). This is a suspicious finding. No additional renal cortical lesions. Within the renal pelvis, there is redemonstration of a staghorn calculus measuring approximately 1.6 x 0.5 x 1.9 cm, with abundant surrounding inflammatory stranding. This has a similar appearance to the prior exam. There is no minimal hydronephrosis, and there is enhancement of the urothelium, likely inflammatory. BOWEL LOOPS: Imaged bowel structures demonstrate mild diverticulosis of the colon, predominantly involving the descending colon. Small bowel is normal. The GE junction, stomach, and duodenum appear normal. LYMPH NODES: None enlarged by size criteria. VASCULAR: Mild to moderate calcific atheromatous disease of the aorta and its branches. There is no aneurysm. OSSEOUS STRUCTURES: No suspicious lytic or blastic bone lesion identified. There is minimal wedging of the inferior endplate of L2, chronic. There are degenerative spinal changes, mild. There is a mild to moderate levoconvex thoracolumbar scoliosis, apex at L2. Scoliosis centered IMPRESSION: 1. Stable staghorn calculus in the left renal pelvis with surrounding pelvic inflammation, and urothelial thin enhancement. Mild hydronephrosis of the left kidney. 2. Subtle oval hypoattenuating lesion in the mid to upper pole cortex of the left kidney measuring 1.9 x 1.9 x 2.5 cm, new from the prior exam. Neoplasm is not excluded. Correlation with ultrasound recommended. 3. Atrophy of the right kidney. No right hydronephrosis or calculus. 4. Hepatic cirrhosis. Splenomegaly. 5. Mild cardiomegaly. Collected: 11/18/23 Location: [facility] Received: 11/19/23 Diagnosis Urine: Non-diangostic. COMMENT: Examination of a monolayer preparation slide shows a hypocellular specimen with red blood cells and occasional inflammatory cells. Clinical History Urinary tract infection Material Received Urine Gross Description Received is 5 cc of cloudy reddish fluid from which a ThinPrep slide is prepared. Date of Service: 01/04/24 CT ABDOMEN AND PELVIS WITHOUT AND WITH CONTRAST CLINICAL INFORMATION: Gross hematuria. COMPARISON: None available. TECHNIQUE: Noncontrast CT of the abdomen and pelvis is performed followed by split bolus contrast-enhanced images using 85 mL Omnipaque 350 contrast. Postcontrast imaging is performed during the combined nephrogram and excretion phase. Sagittal and coronal reformatted images were obtained on the technologist's workstation for both the precontrast and postcontrast phases. This CT examination was performed using dose optimization techniques as appropriate, variously including the following: *Automated exposure control. *Adjustment of mA and/or kV according to patient size (this includes techniques or standardized protocols for targeted exams where dose is matched to indication/reason for exam; i.e. extremities or head). *Use of iterative reconstruction technique. DLP: 1005 mGy-cm FINDINGS: LUNG BASES: There is a very small left pleural effusion. The lung bases are clear. There are coronary artery atherosclerotic calcifications. LIVER, GALLBLADDER, AND BILIARY TREE: The liver is normal in attenuation. There is a lobulated hepatic contour, and there is a prominent caudate lobe, features which may be seen in association with cirrhosis. No focal hepatic lesion or biliary ductal dilatation is present. The gallbladder is surgically absent. PANCREAS: Unremarkable. SPLEEN: There is splenomegaly, with a longitudinal span of 13.5 cm. ADRENAL GLANDS: Unremarkable. KIDNEYS AND URETERS: There is right renal cortical thinning. The left kidney is normal in size, shape, and attenuation. No hydronephrosis, hydroureter, or calculi seen. There is ill-defined circumferential soft tissue opacity adjacent to the left renal pelvis and the proximal left ureter (10:49-57 and 8:36-47). The left ureteropelvic junction appears narrowed (10:49). BLADDER: Unremarkable. GASTROINTESTINAL TRACT: There is mild diverticulosis, without acute diverticulitis. There is no focal bowel wall thickening. No obstruction, free intraperitoneal air or abscess is seen. The vermiform appendix appears normal. ABDOMINAL WALL: No significant hernia is appreciated. LYMPH NODES: There are shotty, nonpathologically enlarged para-aortic and mesenteric lymph nodes. One of the largest of these is located anterior to the upper abdominal aorta (18:36), measuring 1.0 x 0.8 cm. No sizable abdominopelvic lymphadenopathy is seen. VASCULAR: There is moderate aortoiliac atherosclerotic calcification. No abdominal aortic aneurysm or dissection is seen. The left ovarian vein is very prominent (i.e. 10:46-50), with distention and collateral formation. PELVIC VISCERA: The uterus and adnexa are unremarkable. OSSEUS STRUCTURES: There is a moderate lumbar levoscoliosis. There is multi-level thoracolumbar endplate arthropathy. A moderate Schmorl's node seen of the L4 lower endplate. No acute or aggressive osseous finding is noted. IMPRESSION: 1. There is narrowing of the left ureteropelvic junction, and there is ill-defined soft tissue density adjacent to the left renal pelvis and the proximal left ureter. This may be infectious or inflammatory in etiology, and the possibility of a neoplasm such as a transitional cell carcinoma is not excluded. Urology evaluation and management is recommended, with consideration for ureteroscopy. 2. The right kidney shows cortical thinning. 3. No urinary calculus or obstruction is seen. 4. There is prominence of the left ovarian vein, suggesting insufficiency. 5. There is mild diverticulosis, without diverticulitis. 6. There are shotty, nonpathologically enlarged periaortic and mesenteric lymph nodes, as detailed. Recommend management clinical basis. No pathologically enlarged abdominopelvic lymph nodes are seen. 7. There is mild splenomegaly. 8. No aggressive osseous lesion is seen. Assessment & Plan Assessment & Plan (1) Calcium nephrolithiasis: Code(s): N20.0 - Calculus of kidney Category: Medical (2) Cystitis: Code(s): N30.90 - Cystitis, unspecified without hematuria Category: Medical (3) Staghorn calculus: Comment: s/p ESWL Code(s): N20.0 - Calculus of kidney Category: Medical (4) Recurrent UTI: Code(s): N39.0 - Urinary tract infection, site not specified Category: Medical (5) Renal stones: Code(s): N20.0 - Calculus of kidney Category: Medical Plan Office cystoscopy with stent removal today. Follow-up in 6 months with renal ultrasound. Urine is nitrite positive. We will send urine for culture and empirically start antibiotics. Orders: Orders AMB Urinalysis Automated Today N39.41 - Urge incontinence US renal BI 6 Months N20.0 - Calculus of kidney AMB Cystoscopy Today Z96.0 - Presence of urogenital implants Medications: New phenazopyridine 200 mg PO ONCE 1 tab 0RF Z96.0 - Presence of urogenital implants nitrofurantoin monohyd/m-cryst 100 mg (Macrobid) must administer with a meal/food 100 mg PO BID 14 caps 0RF 7 days cephalexin After completing Macrobid start Keflex take 3 times daily for 5 days 500 mg PO TID 15 caps 0RF UTI 5 days Patient Instructions: The patient had an opportunity to ask questions regarding treatment plan. The patient expressed understanding and agreement with the above treatment plan. The patient is aware they should contact our office by phone for worsening of their current condition or the appearance of new symptoms. Compliance is encouraged with any medications and followup testing that is ordered. It is a privilege to be allowed the opportunity to participate in the urologic care of your patient. If you have any questions or concerns regarding treatment for the above conditions please do not hesitate to contact me. The office telephone contact is [phone]. This note is constructed in part using voice recognition software. While every effort has been made to ensure accuracy senior process analyst errors may have been included. Yours sincerely, Chuyita Ratliff MD Coding Level of Care Code Est Pt Level 4 (71402) Diagnoses Calcium nephrolithiasis N20.0 Cystitis N30.90 Staghorn calculus N20.0 Recurrent UTI N39.0 Renal stones N20.0 CPT Codes Cystoscopy - CPT: 61954-[place] with stent removal ([id number])
--- OUTSIDE RECORDS SUMMARY | 2025-02-28 21:08 | XMS_ITS | Clinical Summary ---
[facility] [address] [place] [address] Care Team Providers Care Manager Of Information Name Role Phone Ania Browning MD Primary Care Provider Surgical History Surgery Date Site/Laterality Comments CARPAL TUNNEL RELEASE 07/26/2008 PROCEDURE: [place] NEUROPLASTY &/TRANSPOS MEDIAN NRV CARPAL TUNNE CYSTOSCOPY 10/26/2011 PROCEDURE: [place] CYSTOURETHROSCOPY; COMMENT: Dr Sunny Miranda CYSTOSCOPY 03/31/2016 Left PROCEDURE: WI CYSTOURETHROSCOPY; COMMENT: ureteroscopy, laser lithotripsy, stent placement COLONOSCOPY 08/2008 PROCEDURE: HISTORICAL COLONOSCOPY OTHER SURGICAL HISTORY 09/11/2020 PROCEDURE: WI PRQ TRLUML CORONARY STENT W/ANGIO ONE ART/BRNCH [...] Last Done Comments Breast Cancer Screening 1955 Pneumococcal Vaccine: 50+ Years (1 of 1 - PCV) 2006 Zoster Vaccines (1 of 2) 2006 DTaP,Tdap,and Td Vaccines (2 - Td or Tdap) 09/10/2021 09/11/2011 Depression Screening 05/10/2024 COVID-19 Vaccine (3 - 2024-2 6 season) 2025 11/21/2020, 10/24/2020 Influenza Vaccine (#1) 2025 RSV Immunization Adult Patients (1 - 1-dose 75+ series) 07/22/2031 HIB Vaccines Aged Out No longer eligi [...] Documents on File Type Date Recorded Patient Director Of Physician Practices Expl anation Health Care Decision (hx) 03/31/2016 AD CARROLL DIRECTIVE Health Care Decision (hx) 03/31/2016 AD CARROLL DIRECTIVE Health Care Decision (hx) 03/31/2016 AD CARROLL DIRECTIVE Health Care Decision (hx) 03/31/2016 AD CARROLL DIRECTIVE Health Care Decision (hx) 03/31/2016 AD CARROLL DIRECTIVE Care Teams Manager Of Information Relationship Specialty Start Date End Date Ania Browning MD PCP - General Internal Medicine 12/02/21
== END 2025-02-28 16:22 | disposition home or self-care (01) ==
LOC: HO.HUSH 14:55
PROVIDERS: PCP Physician Assistant; Visit Provider Urology
DX: N20.0 Calculus of kidney (principal); N30.90 Cystitis, unspecified without hematuria; N39.0 Urinary tract infection, site not specified; Z96.0 Presence of urogenital implants; N39.41 Urge incontinence
CPT/HCPCS: 52310; 99214

== ENCOUNTER → 2025-02-28 14:54 | Outpatient (BNVA) | payer MEDICARE, SELFPAY | PROVIDERS: PCP Physician Assistant; Visit Provider Urology | DX: Z48.816 Encounter for surgical aftercare following surgery on the genitourinary system (principal); N20.0 Calculus of kidney; N30.90 Cystitis, unspecified without hematuria; N39.41 Urge incontinence; Z59.00 Homelessness unspecified | CPT/HCPCS: 52310; 81003; 99212 ==

== ENCOUNTER 2025-03-01 10:12 | Outpatient (AMB) | payer MEDICARE, SELFPAY ==
--- NOTE | 2025-03-01 10:48 | A.OFFPC_ITS ---
Vital Signs 03/01/25 10:55 Height 5 ft Weight 167 lb BMI 32.6 BP 134/62 Blood Pressure Location Rt brachial Position Sitting Respiration 14 Pulse 76 Pulse Source Pulse Oximeter Temp 97.8 F Temp Source Oral Pulse Oximetry (%) 97 Oxygen Delivery Method Room Air Intake Visit Reasons: esophagael obstruction (change ins pcp) Intake Note: esophagael obstruction Java Technical Manager Required: No Allergies peach (PEACH) Allergy (Intermediate, Verified 03/01/25 10:53) DIFFICULTY BREATHING Tobacco use date assessed: 03/01/25 Fall risk assessment: No Falls in past year Last assessed Fall Risk: 03/01/25 Dental Screening Dental Screen Date: 03/01/25 Did you have a dental visit in the last 12 months?: No Did you have a dental problem in the last 6 months where you did not have access to dental care?: No Was dental information given to patient?: No HPI esophagael obstruction (change ins pcp) HPI Details Patient is a 69-year-old female with a significant past medical history of prediabetes, hypertension, hyperlipidemia, CAD, anemia, thrombocytopenia, cirrhosis, celiac disease, autoimmune hepatitis, esophageal strictures, recurrent UTI, renal stones, vertigo presenting today for a follow up. She has not been seen by myself in over a year. She tells me today that she is struggling with being homeless and has issues with transportation. She is planning on switching PCP's to somebody with an [facility]. 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 She is currently staying at a friend's house and [place]. Since I last saw her she has gone to [facility] about 7 times and states that she has overall been hospitalized a few times. GI: She was most recently hospitalized after trying to eat a piece of steak and it got stuck in her throat and she had to have this removed with an endoscopy. She is scheduled with GI and states that she will have to have a few more procedures. She typically follows with Dr. Cross. She also follows with GI closely for cirrhosis. She is a little emotional here today discussing the cirrhosis. She states that in order to have a transplant she would have to be closer to the [place] area and unfortunately this is not an option for her. She says that they told her if she does not undergo a transplant prior to the age of 71 she will need a living donor. She has follow up arranged next month. Her sister is planning on driving up here from [place] to bring her to the [facility]. The date is unsure at this time. Heme: She is following with Dr. Artis for her anemia and thrombocytopenia. Has follow up arranged in 3 months unless she moves to [place] before then. CV: Blood pressure today in the office is 134/62. She is on aspirin. Does not tolerate statins. Had statin induced rhabdo. Not interested in PCSK9 inhibitors. To recall, in September 2020, she had NSTEMI and underwent circumflex stenting. In 08/2023, again had NSTEMI. She underwent LAD stenting. Denies any chest pain or shortness on breath. She states that she is overall doing well from a cardiac standpoint. She follows with cardiology, Dr. Oliveira. Neuro: She states that the reason for her office visit today is that she needs a referral to physical therapy for PT for her vertigo. She says that she has a longstanding history of this and recently was having the ureter stent removed in Urology yesterday and felt the vertigo symptoms return. She has been dealing with this on and off for the last couple of months. She states that it usually gets better with physical therapy and she is already going to physical therapy for her back. MSK: Has ongoing back and neck pain and states that it seems responsive to PT. Uro: We will was seen yesterday to have her stent removed and started prophylactically on Macrobid. Awaiting culture. Endo: Last blood sugars have been elevated. Has a history of prediabetes. No recent A1c. Today in the office her glucose is 114 and her A1c is 4.9. 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 Mother No problems noted. Social History (Updated 03/01/25 @ 10:55 by Heber Donnelly MA) Household Members: Family Housing: Homeless Are you a primary care center manager to a significant other at home: No Do you presently have visiting nurse or other home services: No Alcohol intake: former Comment: was drinking 1 drink per month stopped 4 months ago Patient Tobacco Use Status: Never used Tobacco e-Cigarette/Vaping Use: Never Used Second Hand Smoke Exposure: No service: No Current occupational status: employed Current occupation: [employer] Current occupational exposures/hazards: No Cognitive needs: No Hearing needs: No Vision needs: No Questionnaire PHQ-9 Over the last 2 weeks, how often have you been bothered by any of the following problems? 1. Little interest or pleasure in doing things: not at all 2. Feeling down, depressed, or hopeless: not at all 3. Trouble falling or staying asleep, or sleeping too much: not at all 4. Feeling tired or having little energy: not at all 5. Poor appetite or overeating: not at all 6. Feeling bad about yourself - or that you are a failure or have let yourself or your family down: not at all 7. Trouble concentrating on things, such as reading the newspaper or watching television: not at all 8. Moving or speaking so slowly that other people could have noticed. Or the opposite - being so fidgety or restless that you have been moving around a lot more than usual: not at all 9. Thoughts that you would be better off or of hurting yourself in some way: not at all Total score: 0 Depression Screening Interpretation: Negative Depression Screening Done: Yes 65636 - PHQ-9 Billing: Yes Source: Developed by Drs. Javier Marcos, Danielle Kimble, Dawson Oates and colleagues, with an educational wilbur from [employer]. Thrive Questionnaire Date Thrive assessed: 02/03/24 I am a: Patient What is your living situation today?: I choose not to answer this question Within the past 12 months, did the food you bought not last and you didn't have the money to get more?: I choose not to answer this question Within the past 12 months, did you worry whether your food would run out before you got money to buy more?: I choose not to answer this question Do you have trouble paying for medicines?: I choose not to answer this question Do you have trouble getting transportation to medical appointments?: I choose not to answer this question Do you have trouble paying your heating and electricity bill?: I choose not to answer this question Do you have trouble taking care of your child, family member or friend?: I choose not to answer this question Do you have trouble with day-to-day activities such as bathing, preparing meals, shopping, managing finances, etc.?: I choose not to answer this question Are you currently unemployed and looking for a job?: I choose not to answer this question Are you interested in more education?: I choose not to answer this question Please select the resources that you would like help with: None Currently or been in a relationship where the following occur: I choose not to answer THRIVE Score: 0 AUDIT C Alcohol Use Questionnaire (AUDIT-C) 1. How often do you have a drink containing alcohol?: Never Total Score: 0 RICKY-7 AMB Questionnaire RICKY-7 Date RICKY - 7 assessed: 03/01/25 Feeling nervous, anxious, or on edge: 0 = Not at all Not being able to stop or control worryin = Not at all Worrying too much about different things: 0 = Not at all Trouble relaxin = Not at all Being so restless that it is hard to sit still: 0 = Not at all Becoming easily annoyed or irritable: 0 = Not at all Feeling afraid as if something awful might happen: 0 = Not at all Total RICKY-7 score (0-4 normal; 5-9 mild; 10-14 moderate; 15-21 severe): 0 Source: Developed by Drs. Javier Marcos, Danielle Kimble, Dawson Oates and colleagues, with an educational wilbur from [employer]. RICKY-7 Assessment Billing RICKY-7 Assessment Tool: RICKY-7 Assessment 51380 Physical exam (Primary Care) Vital Signs: Last Vital Signs Temp 97.8 F 03/01/25 10:55 Pulse 76 03/01/25 10:55 Resp 14 03/01/25 10:55 BP 134/62 03/01/25 10:55 Pulse Ox 97 03/01/25 10:55 Oxygen Delivery Method Room Air 03/01/25 10:55 BMI result Body Mass Index 32.6 Tobacco/Smoking Status: Tobacco use Status Tobacco use date assessed 03/01/25 03/01/25 10:58 Patient Tobacco Use Status Never used Tobacco 03/01/25 10:55 e-Cigarette/Vaping Use Never Used 03/01/25 10:55 PHQ-9: PHQ-9 Score PHQ-9: Total score 0 03/01/25 11:12 Depression Screening Interpretation: Negative Thrive Assessment: Date of Thrive Assessment Date Thrive assessed 02/03/24 03/01/25 10:49 Currently or been in a relationship where the following occur: I choose not to answer Const Orientation/consciousness: patient oriented x3 HENMT Ears: hearing grossly normal bilaterally Neck Thyroid: Thyroid normal Lymphatic: no lymphadenopathy noted Resp Auscultation: clear to auscultation bilaterally Cardio Rate: regular rate Rhythm: regular rhythm Heart sounds: S1 normal heart sound present, S2 normal heart sound present and Murmur heart sound present Skin General skin exam: no rashes or lesions noted Neuro Other: Ambulates with a cane General: patient oriented x3, no focal motor deficits and CN's II-XI intact bilaterally Motor exam (neuro): 5/5 motor strength present throughout Office Procedures Glucose Monitoring Details Details: [id number]. [id number] 12/07/2026 30025 - Glucose Monitoring, continuous Procedure code (CPT) selection complete Results AMB Hemoglobin A1c AMB Hemoglobin A1c 4.9 % Last Edit by Heber Donnelly MA on 03/01/25 11:42 Results Reviewed Results Reviewed: Laboratory Tests 02/15/25 11:50 WBC 7.0 RBC 3.79 L D Hgb 12.1 D Hct 37.5 D Plt Count 101 L D Plt Count ,Citrate 110 L D Sodium 141 Potassium 4.5 Chloride 113 H Carbon Dioxide 23 Anion Gap 10 L BUN 25 H Creatinine 1.18 Estim Creat Clear Calc 41.3 Estimated GFR 46 Random Glucose 120 H Calcium 9.0 D AST 64 H ALT 31 IMPRESSION: 1. Left ureteral stent in place. Mild perinephric fat stranding or inflammatory changes. 2. Cirrhosis with sequela of portal venous hypertension. 3. Nonocclusive portal vein thrombus Coding Level of Care Code Est Pt Level 4 (91759) Complex EM visit Add On G2211 Diagnoses Esophageal stricture K22.2 Cirrhosis of liver without ascites, unspecified hepatic cirrhosis type K74.60 Ascites presence: without ascites Hepatic cirrhosis type: unspecified hepatic cirrhosis Anemia D64.9 Primary hypertension I10 Hypertension type: primary hypertension Vertigo R42 CPT Codes Details - CPT: 57042 - Glucose Monitoring, continuous ([id number]) Additional Codes RICKY-7 Assessment Billing - RICKY-7 Assessment Tool: RICKY-7 Assessment 84464 ([id number]) PHQ-9 - 53645 - PHQ-9 Billing: Yes ([id number]) Assessment & Plan Assessment & Plan (1) Esophageal stricture: Comment: follows with Dr. Cross, has had 2 procedures so far and needs 2 more Code(s): K22.2 - Esophageal obstruction Category: Medical Plan: following with GI (2) Cirrhosis of liver: Code(s): K74.60 - Unspecified cirrhosis of liver Category: Medical Qualifiers: Ascites presence: without ascites Hepatic cirrhosis type: unspecified hepatic cirrhosis Qualified Code(s): K74.60 - Unspecified cirrhosis of liver Plan: Stable. Has close follow up arranged with GI. (3) Anemia: Code(s): D64.9 - Anemia, unspecified Category: Medical Plan: following with heme/onc (4) Hypertension: Code(s): I10 - Essential (primary) hypertension Category: Medical Qualifiers: Hypertension type: primary hypertension Qualified Code(s): I10 - Essential (primary) hypertension Plan: WNL. We will continue to monitor (5) Vertigo: Code(s): R42 - Dizziness and giddiness Plan: Referral to PT. Does appear grossly neurologically intact today. Orders: Orders AMB Glucose Monitoring Today R73.03 - Prediabetes PT Evaluation and Treatment Today R42 - Dizziness and giddiness AMB Hemoglobin A1c Today R73.03 - Prediabetes
[2025-03-01 10:55] VITALS: BP 134/62; PULSE 76; RESP 14; TEMP 36.6; O2SAT 97; BMI 32.6
--- OUTSIDE RECORDS SUMMARY | 2025-03-01 12:07 | XMS_ITS | Clinical Summary ---
[facility] Address [address] [place] [address] Care Team Providers Care Ic Designer Standard Cells Name Role Phone Ania Browning MD Primary Care Provider Surgical History Surgery Date Site/Laterality Comments CARPAL TUNNEL RELEASE 07/26/2008 PROCEDURE: [place] NEUROPLASTY &/TRANSPOS MEDIAN NRV CARPAL TUNNE CYSTOSCOPY 10/26/2011 PROCEDURE: [place] CYSTOURETHROSCOPY; COMMENT: Dr Sunny Miranda CYSTOSCOPY 03/31/2016 Left PROCEDURE: [place] CYSTOURETHROSCOPY; COMMENT: ureteroscopy, laser lithotripsy, stent placement COLONOSCOPY 08/2008 PROCEDURE: HISTORICAL COLONOSCOPY OTHER SURGICAL HISTORY 09/11/2020 PROCEDURE: [place] PRQ TRLUML CORONARY STENT W/ANGIO ONE ART/BRNCH [...] Documents on File Type Date Recorded Patient Residue Furnace Operator Expl anation Health Care Decision (hx) 03/31/2016 AD CARROLL DIRECTIVE Health Care Decision (hx) 03/31/2016 AD CARROLL DIRECTIVE Health Care Decision (hx) 03/31/2016 AD CARROLL DIRECTIVE Health Care Decision (hx) 03/31/2016 AD CARROLL DIRECTIVE Health Care Decision (hx) 03/31/2016 AD CARROLL DIRECTIVE Care Teams Ic Designer Standard Cells Relationship Specialty Start Date End Date Ania Browning MD PCP - General Internal Medicine 12/02/21
== END 2025-03-01 11:41 | disposition home or self-care (01) ==
LOC: HO.HMCFM 10:13
PROVIDERS: PCP Physician Assistant; Visit Provider Physician Assistant
DX: K22.2 Esophageal obstruction (principal); K74.60 Unspecified cirrhosis of liver; D64.9 Anemia, unspecified; I10 Essential (primary) hypertension; R42 Dizziness and giddiness; R73.03 Prediabetes

== ENCOUNTER → 2025-03-01 10:12 | Outpatient (BNVA) | payer MEDICARE, SELFPAY | PROVIDERS: PCP Physician Assistant; Visit Provider Physician Assistant | DX: R42 Dizziness and giddiness (principal); M54.9 Dorsalgia, unspecified; M54.2 Cervicalgia; R73.03 Prediabetes; K22.2 Esophageal obstruction; K74.60 Unspecified cirrhosis of liver; D64.9 Anemia, unspecified; I10 Essential (primary) hypertension; Z79.82 Long term (current) use of aspirin; Z59.00 Homelessness unspecified | CPT/HCPCS: 83036; 95250; 96127; 99212 ==

== ENCOUNTER 2025-03-08 08:30 | Outpatient (AMB) | payer MEDICARE, SELFPAY ==
--- NOTE | 2025-03-08 08:35 | A.OFFVIS_ITS ---
Intake Visit Reasons: OV- Right sided back pain radiating to leg Intake Note: Claudia is a 69 year old female who presents today for a follow up of her osteoarthritis of both hips and low back pain. On 11/30/24 this patient was referred to physical therapy to work on balance and gait. She reports physical therapy went well and she was seeing improvements. She reports that last week she was working on her storage unit and feels that she made her lower back and hip pain worse. She added that she has her next appointment with her new PCP for her vertigo on 03/15/25. Patient reports that she is now using her cane to help with her mobility. Allergies peach (PEACH) Allergy (Intermediate, Verified 03/01/25 10:53) DIFFICULTY BREATHING Medication List - Last Reconciled 03/08/25 by Alley Cam MD albuterol sulfate 90 mcg/actuation 2 puffs inhalation Q4-6H PRN aspirin 81 mg PO DAILY cephalexin 500 mg PO TID 5 days meclizine 25 mg PO TID nitrofurantoin monohyd/m-cryst 100 mg (Macrobid) 100 mg PO BID 7 days HPI Comments Details: Overall improved with PT but when she does more strenous activities, would be sore. It would be more the lower back, not much the groin. It could shoot down to left leg. No numbness. No weakness. She is using cane for vertigo. She had injections remotely 20 years ago and she does not want to do injections. She talks about being the only one to empty out her stuff from storage , which has been the cause of more recent pain. Goal for her to move to [facility] early next year. She's been to ER several times since the last time I saw her, had emergency GI procedure per patient, and had seen PCP recently 03/01/25. She is starting PT for vertigo next week. She wants to return to PT for her back pain as it really helps. 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 Mother No problems noted. Social History (Updated 03/01/25 @ 10:55 by Heber Donnelly MA) Household Members: Family Housing: Homeless Are you a primary professional healthcare representative to a significant other at home: No Do you presently have visiting nurse or other home services: No Alcohol intake: former Comment: was drinking 1 drink per month stopped 4 months ago Patient Tobacco Use Status: Never used Tobacco e-Cigarette/Vaping Use: Never Used Second Hand Smoke Exposure: No service: No Current occupational status: employed Current occupation: [employer] Current occupational exposures/hazards: No Cognitive needs: No Hearing needs: No Vision needs: No Physical Exam Exam Exam: Constitutional: Patient appears to be in no acute distress, well nourished and well developed. Patient was appropriately conversant and oriented. Good historian. MSK: Gait appears improved since last visit, good heel strike, no foot drop, used cane. Results Reviewed Results Reviewed: Ordering Physician: Alley Hager Date of Service: 11/30/24 Procedure(s): XR lumbar spine 2-3V Accession Number(s): [id number] cc: Alley Hager; Sandoval Johnston [employer]PERVISOR~ EXAMINATION: XR LUMBOSACRAL SPINE CLINICAL INFORMATION: M54.9 - Dorsalgia, unspecified COMPARISON: None available. TECHNIQUE: AP and lateral views FINDINGS: Levoconvex rotoscoliosis apex at L2. Multilevel marginal osteophyte formation and endplate sclerosis. No acute cortical disruption. No gross malalignment. Left-sided ureteral stent. Vascular calcifications. No lytic or blastic lesions. Vascular clips right upper quadrant abdomen. XR/XR lumbar spine 2-3V IMPRESSION: Multilevel spondylosis and levoconvex rotoscoliosis. No acute fracture or gross listhesis. Electronically signed by: Dion Iglesias MD 11/30/2024 10:08 AM EDT Assessment & Plan Assessment & Plan (1) Lower back pain: Code(s): M54.50 - Low back pain, unspecified Category: Medical Qualifiers: Back pain laterality: bilateral Chronicity: chronic Sciatica presence: without sciatica Qualified Code(s): M54.50 - Low back pain, unspecified; G89.29 - Other chronic pain (2) Hip osteoarthritis: Code(s): M16.9 - Osteoarthritis of hip, unspecified Category: Medical Qualifiers: Laterality: bilateral Osteoarthritis type: primary Qualified Code(s): M16.0 - Bilateral primary osteoarthritis of hip Plan She wants to return to PT for her back pain as it really helps. She'll give us a call after her PT for vertigo. Will continue with her home exercise. She does not want to have any injections. Assessment and plan discussed with patient, and patient was agreeable. All questions were answered thoroughly. Follow up as needed. Alley Cam MD, MANUEL Board Certified, [place] Board of Physical Medicine and Rehabilitation (ABPMR) Board Certified, [place] Board of Electrodiagnostic Medicine (ABEM) Coding Level of Care Code Est Pt Level 3 (01299) Diagnoses Chronic bilateral low back pain without sciatica M54.50; G89.29 Back pain laterality: bilateral Chronicity: chronic Sciatica presence: without sciatica Primary osteoarthritis of both hips M16.0 Laterality: bilateral Osteoarthritis type: primary
--- OUTSIDE RECORDS SUMMARY | 2025-03-08 09:16 | XMS_ITS | Clinical Summary ---
Author Organization [facility] Address [address] [place] [address] Care Team Providers Care Machine Cutter Name Role Phone Ania Browning MD Primary Care Provider Surgical History Surgery Date Site/Laterality Comments CARPAL TUNNEL RELEASE 07/26/2008 PROCEDURE: UT NEUROPLASTY &/TRANSPOS MEDIAN NRV CARPAL TUNNE CYSTOSCOPY 10/26/2011 PROCEDURE: UT CYSTOURETHROSCOPY; COMMENT: Dr Sunny Miranda CYSTOSCOPY 03/31/2016 Left PROCEDURE: UT CYSTOURETHROSCOPY; COMMENT: ureteroscopy, laser lithotripsy, stent placement COLONOSCOPY 08/2008 PROCEDURE: HISTORICAL COLONOSCOPY OTHER SURGICAL HISTORY 09/11/2020 PROCEDURE: UT PRQ TRLUML CORONARY STENT W/ANGIO ONE ART/BRNCH [...] Documents on File Type Date Recorded Patient Legal Writing Professor Expl anation Health Care Decision (hx) 03/31/2016 AD CARROLL DIRECTIVE Health Care Decision (hx) 03/31/2016 AD CARROLL DIRECTIVE Health Care Decision (hx) 03/31/2016 AD CARROLL DIRECTIVE Health Care Decision (hx) 03/31/2016 AD CARROLL DIRECTIVE Health Care Decision (hx) 03/31/2016 AD CARROLL DIRECTIVE Care Teams Machine Cutter Relationship Specialty Start Date End Date Ania Browning MD PCP - General Internal Medicine 12/02/21
== END 2025-03-08 09:31 | disposition home or self-care (01) ==
LOC: HO.HOS 08:31
PROVIDERS: PCP Nurse Practitioner Family; Visit Provider Physical Medicine & Rehabilitation
DX: M54.50 Low back pain, unspecified (principal); G89.29 Other chronic pain; M16.0 Bilateral primary osteoarthritis of hip
CPT/HCPCS: 99213

== ENCOUNTER → 2025-03-08 08:30 | Outpatient (BNVA) | payer MEDICARE, SELFPAY | PROVIDERS: PCP Nurse Practitioner Family; Visit Provider Physical Medicine & Rehabilitation | DX: M54.50 Low back pain, unspecified (principal); M16.0 Bilateral primary osteoarthritis of hip; G89.29 Other chronic pain; K90.0 Celiac disease | CPT/HCPCS: 97802; 99212; 99213 ==

== ENCOUNTER 2025-03-08 10:01 | Outpatient (AMB) | payer MEDICARE, MEDICAID, SELFPAY ==
--- NOTE | 2025-03-08 10:18 | A.OFFVIS_ITS ---
VS Expanded 03/08/25 10:19 Height 5 ft Weight 166 lb 3.657 oz BMI 32.5 Intake Visit Reasons: Celiac Dis Allergies peach (PEACH) Allergy (Intermediate, Verified 03/16/25 06:49) DIFFICULTY BREATHING Nutrition Presentation Details: Pt presents for MNT for Celiac Disease and diet instruction BS Monitoring Most Recent Diabetes Results: Creatinine, (0.5-1.4) 1.00 mg/dL 03/17/25 BUN, (9-16) 12 mg/dL 03/17/25 Sodium, (135-145) 140 mmol/L 03/17/25 Potassium, (3.3-5.1) 3.5 mmol/L 03/18/25 Chloride, (96-108) 116 mmol/L H 03/17/25 Carbon Dioxide, (22-29) 19 mmol/L L 03/17/25 Calcium, (8.4-10.2) 7.7 mg/dL L Δ 03/17/25 AST, (5-31) 45 U/L H 03/16/25 ALT, (0-31) 21 U/L 03/16/25 Total Protein, (6.5-8.0) 8.4 g/dL H 03/16/25 Albumin, (3.5-5.0) 3.1 g/dL L 03/16/25 KBJ-Kjrjmwr-Ej.Jeor Equation Height: 5 ft Weight: 166 lb Resting Metabolic Rate: 1209.15 Calculated Activity Level: Sedentary Calories Needed to Maintain Weight: 1450.98 Diagnosis Nutrition problem #1: food nutri know defi As related to (etiology) #1: diagnosis (CEliac) As evidenced by (sign/symptom) #1: knowledge deficit of diet [facility] Medical History Poor dentition Esophageal stricture Celiac disease Anemia Hematuria Left renal mass Staghorn calculus UTI (urinary tract infection) Hx of vertigo Proteinuria 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 Mother No problems noted. Social History Household Members: Family Household Members Other:: cousin and son Housing: House Are you a primary small animal caretaker to a significant other at home: No Do you presently have visiting nurse or other home services: No Alcohol intake: former Comment: was drinking 1 drink per month stopped 4 months ago Patient Tobacco Use Status: Never used Tobacco e-Cigarette/Vaping Use: Never Used Second Hand Smoke Exposure: No service: No Current occupational status: employed Current occupation: [employer] Current occupational exposures/hazards: No Cognitive needs: No Hearing needs: No Vision needs: No Assessment & Plan Assessment & Plan (1) Celiac disease: Code(s): K90.0 - Celiac disease Category: Medical Plan: current wt: 75 kg ( 04/03 ) est kcal needs as per MSJ: 1500 est protein needs as per 1 g/kg BW: 80 est fluid needs as per 30 ml/kg BW: 2300 REVIEWED The following regarding celiac disease diet instructions: Must avoid and eliminate all gluten containing foods and its derivatives from her diet (see list printed with names of gluten and its derivatives ) Avoid cross contamination (including but not limited to using same cutting board, toaster, double dipping , frying in the same oil) see list of foods naturally free of gluten and 8701-1837 brock meal plan as a reference Discussed and provided a list of food sources of gluten and derivatives of gluten Discussed foods naturally gluten free and how to incorporate into a healthy meal Discussed importance of preventing cross contamination (including but not limited to using same cutting board, toaster, double dipping, frying in same oil as gluten containing foods) Discussed precautions when eating out and how to find places that offer gluten free options Discussed importance of following healthy plate method, including a variety of healthy -gluten free foods Patient Instructions: Must avoid and eliminate all gluten containing foods and its derivatives (see list printed with names of gluten and its derivatives ) Avoid cross contamination (including but not limited to using same cutting board, toaster, double dipping , frying in the same oil) see list of foods naturally free of gluten and 1700 brock meal plan as a reference Discussed and provided a list of food sources of gluten and derivatives of gluten Discussed foods naturally gluten free and how to incorporate into a healthy meal Discussed importance of preventing cross contamination (including but not limited to using same cutting board, toaster, double dipping, frying in same oil as gluten containing foods) Discussed precautions when eating out and how to find places that offer gluten free options Discussed importance of following healthy plate method, including a variety of healthy -gluten free foods Coding Level of Care Code Nutr Indiv Intake (20768) Diagnoses Celiac disease K90.0 Time Spent (min) 30
[2025-03-08 10:19] VITALS: BMI 32.5
[2025-03-19 12:12] VITALS: BMI 32.4
== END 2025-03-08 10:41 | disposition home or self-care (01) ==
LOC: HO.ENCR 10:02
PROVIDERS: PCP Nurse Practitioner Family; Visit Provider Dietitian, Registered
DX: K90.0 Celiac disease (principal)

== ENCOUNTER 2025-03-14 14:48 | Emergency (ER) | payer MEDICARE, SELFPAY ==
[2025-03-14 15:06] VITALS: BP 116/78; BP 132/62; PULSE 84; PULSE 88; RESP 18; TEMP 36.7; O2SAT 96; O2SAT 99; BMI 32.6
[2025-03-14 16:00] LABS: MANUAL DIFF FLAG NO
[2025-03-14 16:05] LABS: Hematocrit 34.3 % (37.0-47.0); Hemoglobin 11.3 g/dl (12.0-16.0); Imm Gran Abs Auto 0.04 X10*3/uL (0.00-0.03); Imm Gran Pct Auto 0.5 % (0.0-0.4); Lymphocytes Absolute Auto 0.9 X10*3/uL (1.2-4.9); Mean Corpuscular HGB Conc 32.9 g/dl (31.0-35.0); Mean Corpuscular Hemoglobin 32.0 pg (27.0-33.0); Mean Corpuscular Volume 97.2 fL (80.0-98.0); NRBC Abs Auto 0.000 X10*3/uL (0.0-0.012); NRBC Pct Auto 0.0 /100WBC (0.0-0.2); Red Blood Count 3.53 X10*6/uL (4.20-5.50); White Blood Count 7.9 X10*3/uL (4.8-10.8)
[2025-03-14 16:17] LABS: Alanine Aminotransferase 19 U/L (0-31); Albumin Level 2.7 g/dL (3.5-5.0); Alkaline Phosphatase 101 U/L (39-117); Anion Gap 9 (12-20); Aspartate Amino Transferase 47 U/L (5-31); Blood Urea Nitrogen 14 mg/dL (9-16); Calcium 8.3 mg/dL (8.4-10.2); Carbon Dioxide 20 mmol/L (22-29); Chloride 115 mmol/L (96-108); Creatinine Clr Calc Pharmacy 44.0; Estimated Glomerular Filt Rate 49; Potassium 3.6 mmol/L (3.3-5.1); Sodium 140 mmol/L (135-145); Total Protein 7.6 g/dL (6.5-8.0)
[2025-03-14 16:37] LABS: Platelet Count 59 X10*3/uL (160-400)
[2025-03-14 16:52] VITALS: BP 137/54; PULSE 82; TEMP 36.6; O2SAT 99
--- NOTE | 2025-03-14 17:28 | ED_ITS ---
HPI - General Adult General Chief complaint: Abdominal Pain Stated complaint: N/V/D,ABD PAIN X3D PER EMS Time Seen by Provider: 03/14/25 16:05 Source: patient, RN notes reviewed and old records reviewed Mode of arrival: EMS Limitations: language barrier History of Present Illness ED Provider: Manjeet HPI narrative: 69-year-old female with a past medical history significant for coronary artery disease, nephrolithiasis, liver cirrhosis, esophageal strictures presents for evaluation of abdominal pain, nausea vomiting and diarrhea. Patient reports that her symptoms started 3 days ago. She denies any blood in her stool pain Denies any sick contacts pain She reports that she felt better this morning but then had several more episodes of diarrhea since. She reports being on antibiotics recently but is unclear exactly when due to her ureteral stents being removed Denies any fevers, chills pain She is status post cholecystectomy but denies any abdominal surgeries. She has tried Imodium without any significant improvement in her diarrhea Your other complaints or concerns at this time Related Data Home Medications ?Medication ?Instructions ?Recorded ?Confirmed aspirin 81 mg chewable tablet 81 mg PO DAILY 02/08/25 03/08/25 Previous Rx's ?Medication ?Instructions ?Recorded albuterol sulfate 90 mcg/actuation 2 puff inhalation Q 4-6H PRN 05/18/23 aerosol inhaler shortness of breath or wheez ing #8.5 grams meclizine 25 mg tablet 25 mg PO TID dizziness #50 t abs 02/15/25 cephalexin 500 mg capsule 500 mg PO TID UTI 5 days #15 caps 02/28/25 nitrofurantoin 100 mg PO BID 7 days #14 cap s 02/28/25 monohydrate/macrocrystals 100 mg capsule (Macrobid) ondansetron 4 mg disintegrating 4 mg PO Q8H PRN nausea and 03/14/25 tablet vomiting #20 tabs Allergies Allergy/AdvReac Type Severity Reaction Status Date / Time peach (PEACH) Allergy Intermediate DIFFICULTY Verified 03/14/25 15:11 BREATHING Review of Systems 2 Constitutional: Constitutional: Denies body ache(s), Denies chills, Denies fever(s) and Denies headache(s) Eyes: Eyes: Denies blurry vision ENT: Denies vertigo, Denies dizziness and Denies headache(s) Cardiovascular: Cardiovascular: Denies chest pain and Denies dyspnea on exertion Respiratory: Respiratory: Denies cough and Denies dyspnea on exertion Gastrointestinal: Gastrointestinal: Reports abdominal pain, Reports diarrhea, Reports loose stools, Reports nausea, Reports vomiting and Denies hematemesis Musculoskeletal: Musculoskeletal: Denies back pain Integumentary/Breasts: Skin/Breast: Denies rash Neurologic: Denies vertigo, Denies dizziness and Denies headache(s) Psychiatric: Psychiatric: Denies anxiety [facility] Past Medical History Medical History Poor dentition Esophageal stricture Celiac disease Anemia Hematuria Left renal mass Staghorn calculus UTI (urinary tract infection) Hx of vertigo Proteinuria 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 Mother No problems noted. Social History Social History (Updated 03/01/25 @ 10:55 by Heber Donnelly MA) Household Members: Family Housing: Homeless Are you a primary progressive care nurse to a significant other at home: No Do you presently have visiting nurse or other home services: No Alcohol intake: former Comment: was drinking 1 drink per month stopped 4 months ago Patient Tobacco Use Status: Never used Tobacco Smoked in Last 30 Days: No e-Cigarette/Vaping Use: Never Used Second Hand Smoke Exposure: No Use of substances other than those prescribed or required for medical reasons: No Advance Directives: No Advance Directives Information Provided: Yes Do you have a plan to hurt others: No Plan service: No Current occupational status: employed Current occupation: [employer] Current occupational exposures/hazards: No Cognitive needs: No Hearing needs: No Vision needs: No Physical Exam ED Vital Signs: Vital Signs - 24 hr 03/14/25 15:06 11/05/25 16:52 03/14/25 19:42 Temperature 98.1 F 97.9 F 98.2 F Pulse Rate 84 82 79 Respiratory Rate 18 Blood Pressure 116/78 137/54 L 144/60 H Pulse Oximetry 99 99 99 Oxygen Delivery Method Room Air Room Air Room Air Oxygen Flow Rate 98 BMI result Body Mass Index 32.6 Const General: healthy appearing, comfortable, no acute distress, alert and awake Nutritional Appearance: well nourished Orientation/consciousness: patient oriented x3 HENMT Head: Yes normocephalic and Yes atraumatic Eyes Eyelids: Yes eyelids normal Conjunctivae: conjunctivae normal Sclerae: sclerae normal Corneas: corneas normal Pupils: Equal, round and reactive pupils present EOM: EOMs intact bilaterally Neck Neck: Yes full ROM Resp Effort & Inspection: normal respiratory effort, able to speak in complete sentences and not labored Cardio Rate: regular rate Rhythm: regular rhythm GI Inspection: No distended Palpation (GI): Soft to palpation, not firm, Tenderness to palpation present (GI) in the LLQ, in the RLQ, in the LUQ and in the RUQ, no guarding and not rigid Skin General skin exam: elasticity normal Neuro General: patient oriented x3 Cranial nerves: Yes Equal, round and reactive pupils present and Yes Bilaterally intact EOM present Cognition (Neuro): normal cognition Extrem Other: Moving all extremities well without any obvious deformities Course Reevaluation(s) Reevaluation #1: The patient has been in the ER for several hours, she has not had any further bowel movements and your unable to collect a stool sample. However given that she has not been having persistent diarrhea I think that C diff his far less likely. The patient was treated symptomatically, she remains hemodynamically stable. She is stable for discharge to continue conservative management Time: 22:16 Medications Administered Discontinued Medications Generic Name Dose Route Start Last Admin Trade Name Freq PRN Reason Stop Dose Admin Al Hydroxide/Mg Hydroxide 30 ml 03/14/25 21:30 03/14/25 21:52 Magnesium Hydrox/Alum Hydrox 30 Ml Oral.Susp PO 03/14/25 21:31 30 ml ONCE ONE Administration Lactated Ringer's 1,000 mls @ 999 mls/hr 03/14/25 17:15 03/14/25 20:17 Lr IV 03/14/25 18:15 Infused .Q1H1M PATRICIA Infusion Lidocaine HCl 15 ml 03/14/25 21:30 03/14/25 21:52 Lidocaine Hcl Viscous 2 % 15 Ml Solution MUCOUS MEM 03/14/25 21:31 15 ml ONCE ONE Administration Morphine Sulfate 4 mg 03/14/25 17:09 03/14/25 17:52 Morphine Sulfate 4 Mg/Ml Cartridge IVPUSH 03/14/25 17:10 4 mg ONCE ONE Administration Protocol Ondansetron HCl 4 mg 03/14/25 17:09 03/14/25 17:52 Ondansetron Hcl 4 Mg/2 Ml Vial IVPUSH 03/14/25 17:10 4 mg ONCE ONE Administration Ondansetron HCl 4 mg 03/14/25 21:30 03/14/25 21:52 Ondansetron Odt 4 Mg Tab.Rapdis TRANSLINGU 03/14/25 21:31 4 mg ONCE ONE Administration Medical Decision Making Medical Decision Making [facility] Narrative: 61-year-old female with a past medical history above presents for evaluation abdominal pain nausea vomiting and diarrhea. Her history exam is most consistent with gastroenteritis. She has diffuse tenderness with nausea and vomiting, given that she has diarrhea, she is not obstructed. She is quite comfortable, vital signs are stable. She has no leukocytosis. Her mild anemia consistent with a baseline unlikely to were no liver disease. Renal function within normal limits. She may have a mild acidosis with a CO2 of 20 which is likely due to GI loss with vomiting and diarrhea but we will treat with IV fluids and continue to monitor. Consider CT scan of the pelvis but currently did not feel it is indicated. Low suspicion for surgical abdomen. I did order C diff study given her recent antibiotic use with diarrhea. Differential Diagnosis Differential Diagnoses: The differential diagnosis associated with the presentation includes Abdominal pain Gastroenteritis Colitis Diverticulitis Colonic ileus Bowel obstruction C diff Admission/Observation Consideration of admission/observation: Escalation of care including admission/observation considered Lab Data [facility] Lab Attestation statement: I reviewed the patient's lab results. No leukocytosis, the patient has a mild anemia consistent with a baseline. He has a thrombocytopenia 15636 which is consistent with a recent baseline unknown history liver disease. Electrolytes are reassuring, chloride is slightly elevated to 115 likely due to slight dehydration. 03/14/25 15:56 03/14/25 15:56 Labs: Lab Results 11/05/25 Range/Units 15:56 WBC 7.9 (4.8-10.8) X10*3/uL RBC 3.53 L (4.20-5.50) X10*6/uL Hgb 11.3 L (12.0-16.0) g/dl Hct 34.3 L (37.0-47.0) % MCV 97.2 (80.0-98.0) fL MCH 32.0 (27.0-33.0) pg MCHC 32.9 (31.0-35.0) g/dl RDW 14.7 (11.0-16.0) % Plt Count 59 L D (160-400) X10*3/uL MPV 13.0 H (9.4-12.3) fL Immature Gran % (Auto) 0.5 H (0.0-0.4) % Neut % (Auto) 78.7 H (45-73) % Lymph % (Auto) 11.5 L (20-40) % Martin % (Auto) 5.9 (2-11) % Eos % (Auto) 3.3 (0-4) % Baso % (Auto) 0.1 (0-2) % Lymph # (Auto) 0.9 L (1.2-4.9) X10*3/uL Martin # (Auto) 0.5 (0.1-1.2) X10*3/uL Eos # (Auto) 0.3 (0.0-0.4) X10*3/uL Baso # (Auto) 0.0 (0.0-0.2) X10*3/uL Abs Immat Gran (auto) 0.04 H (0.00-0.03) X10*3/uL Absolute Neuts (auto) 6.2 (2.0-8.3) x10*3/uL Absolute Nucleated RBC 0.000 (0.0-0.012) X10*3/uL Nucleated RBC % (auto) 0.0 (0.0-0.2) /100WBC Sodium 140 (135-145) mmol/L Potassium 3.6 (3.3-5.1) mmol/L Chloride 115 H (96-108) mmol/L Carbon Dioxide 20 L (22-29) mmol/L Anion Gap 9 L (12-20) BUN 14 (9-16) mg/dL Creatinine 1.11 (0.5-1.4) mg/dL Estim Creat Clear Calc 44.0 Estimated GFR 49 Random Glucose 121 H (60-115) mg/dL Calcium 8.3 L D (8.4-10.2) mg/dL Total Bilirubin 0.8 (0.0-1.0) mg/dL AST 47 H (5-31) U/L ALT 19 (0-31) U/L Alkaline Phosphatase 101 (39-117) U/L Total Protein 7.6 (6.5-8.0) g/dL Albumin 2.7 L (3.5-5.0) g/dL Discharge Plan Discharge Clinical Impression: Diarrhea Patient Disposition: Home, Self-Care Instructions: Acute Diarrhea (ED) Additional Instructions: Your workup in the ER today was reassuring. This includes your blood work, examined vital signs. You may continue Imodium as needed for diarrhea. Use Zofran as needed for nausea and vomiting. Follow up with your primary doctor, return for any worsening symptoms Prescriptions: New ondansetron 4 mg tablet,disintegrating 4 mg PO Q8H PRN (Reason: nausea and vomiting) Qty: 20 0RF No Action albuterol sulfate 90 mcg/actuation HFA aerosol inhaler 2 puff inhalation Q4-6H PRN (Reason: shortness of breath or wheezing) Qty: 8.5 3RF meclizine 25 mg Tablet 25 mg PO TID Qty: 50 4RF aspirin 81 mg Tablet,Chewable 81 mg PO DAILY phenazopyridine 200 mg tablet 200 mg PO ONCE Qty: 1 0RF nitrofurantoin monohyd/m-cryst [Macrobid] 100 mg capsule 100 mg PO BID 7 Days Qty: 14 0RF Rx Instructions: must administer with a meal/food cephalexin 500 mg capsule 500 mg PO TID 5 Days Qty: 15 0RF Rx Instructions: After completing Macrobid start Keflex take 3 times daily for 5 days Print Language: Albanian
[2025-03-14] MEDS: Lactated Ringers 1,000 ML 999 ML IV (17:52)
--- OUTSIDE RECORDS SUMMARY | 2025-03-14 18:26 | XMS_ITS | Clinical Summary ---
[facility] Organization [facility] Address [address] [place] [address] Care Team Providers Care Mortgage Loan Assistant Name Role Phone Ania Browning MD Primary Care Provider Surgical History Surgery Date Site/Laterality Comments CARPAL TUNNEL RELEASE 07/26/2008 PROCEDURE: VT NEUROPLASTY &/TRANSPOS MEDIAN NRV CARPAL TUNNE CYSTOSCOPY 10/26/2011 PROCEDURE: VT CYSTOURETHROSCOPY; COMMENT: Dr Sunny Miranda CYSTOSCOPY 03/31/2016 Left PROCEDURE: VT CYSTOURETHROSCOPY; COMMENT: ureteroscopy, laser lithotripsy, stent placement COLONOSCOPY 08/2008 PROCEDURE: HISTORICAL COLONOSCOPY OTHER SURGICAL HISTORY 09/11/2020 PROCEDURE: VT PRQ TRLUML CORONARY STENT W/ANGIO ONE ART/BRNCH [...] Documents on File Type Date Recorded Patient Traveling Operator Expl anation Health Care Decision (hx) 03/31/2016 AD CARROLL DIRECTIVE Health Care Decision (hx) 03/31/2016 AD CARROLL DIRECTIVE Health Care Decision (hx) 03/31/2016 AD CARROLL DIRECTIVE Health Care Decision (hx) 03/31/2016 AD CARROLL DIRECTIVE Health Care Decision (hx) 03/31/2016 AD CARROLL DIRECTIVE Care Teams Mortgage Loan Assistant Relationship Specialty Start Date End Date Ania Browning MD PCP - General Internal Medicine 12/02/21
[2025-03-14 19:42] VITALS: BP 144/60; PULSE 79; TEMP 36.8; O2SAT 99
[2025-03-14] MEDS: Magnesium Hydrox/Alum Hydrox 30 ML ORAL.SUSP PO (21:52)
[2025-03-14] MEDS: Lidocaine HCl Viscous 2 % 15 ML SOLUTION MUCOUS MEM (21:52)
--- NOTE | 2025-03-14 21:53 | PC.NURSE ---
pt medicated per MAR.
--- NOTE | 2025-03-14 21:53 | PC.NURSE ---
stool sample senttttttttttttttttttttttttttt down to lab
[2025-03-14 22:37] VITALS: BP 136/62; PULSE 82; RESP 18; TEMP 36.6; O2SAT 96
[2025-03-14 23:21] LABS: CDiff Gene PCR POSITIVE (Negative)
[2025-03-14 23:28] LABS: CDIFF Internal ctrl Dots and bkg OK (V); CDiff Toxin Negative (Negative)
[2025-03-15 10:27] LABS: E. coli EAEC Not Detected (Not Detect.); E. coli EPEC Not Detected (Not Detect.); E. coli ETEC Not Detected (Not Detect.); E. coli STEC Not Detected (Not Detect.); Shigella sp./EIEC Not Detected (Not Detect.)
== END 2025-03-14 22:51 | disposition home or self-care (01) ==
PROVIDERS: Physician Assistant; Emergency Provider Emergency Medicine; PCP Student in an Organized Health Care Education/Training Program
DX: R19.7 Diarrhea, unspecified (principal); R11.2 Nausea with vomiting, unspecified; R10.9 Unspecified abdominal pain; I25.10 Atherosclerotic heart disease of native coronary artery without angina pectoris; K74.60 Unspecified cirrhosis of liver
CPT/HCPCS: 36415; 80053; 85025; 87324; 87493; 87507; 96361; 96374; 96375; 99284; J2270; J2405; J7120

== ENCOUNTER 2025-03-16 06:34 | Inpatient (IN) | payer MEDICARE, SELFPAY ==
[2025-03-16] VITALS (7 sets, daily range): BP systolic 108–176; BP diastolic 41–82; PULSE 80–90; RESP 17–22; TEMP 36.5–36.6; O2SAT 96–100; BMI 32.6; BMI 32.7
--- NOTE | ~2025-03-16 | CT_ITS ---
EXAMINATION: CT ABDOMEN AND PELVIS WITH CONTRAST CLINICAL INFORMATION: Abdominal pain. Nausea. Vomiting. COMPARISON: January 26, 2025 TECHNIQUE: Multidetector volumetric images were obtained from the superior aspect of the liver through the pubic symphysis following administration 85 mL of Omnipaque 350 intravenous contrast. Sagittal and coronal reformatted images were obtained on the technologist's workstation. Oral contrast: No This CT examination was performed using dose optimization techniques as appropriate, variously including the following: *Automated exposure control *Adjustment of mA and/or kV according to patient size (this includes techniques or standardized protocols for targeted exams where dose is matched to indication/reason for exam; i.e. extremities or head) *Use of iterative reconstruction technique. DLP: 603 mGy-cm FINDINGS: LUNG BASES: Linear attenuation abnormalities, lingula, right middle lung lobe and left lung base. LIVER, GALLBLADDER, AND BILIARY TREE: Liver measures 15 cm. Nodular surface. Prominent caudate lobe. No enhancing mass. Portal venous phase. Status post cholecystectomy. No intrahepatic or extrahepatic biliary ductal dilatation. PANCREAS: No solid or cystic lesion. No main pancreatic ductal dilatation. No peripancreatic fluid collection. SPLEEN: 15 cm. No solid or cystic mass. ADRENAL GLANDS: Soft tissue fullness pronounced on the left adrenal gland. KIDNEYS AND URETERS: Asymmetric volume loss of the right kidney with renal cortical thinning. No gross hydronephrosis. Punctate calcifications likely vascular. Left kidney demonstrates normal enhancement pattern and normal size. Edema pattern in the parapelvic/pelvicalyceal system with slight increased density. No dilatation of the left ureter. 1 mm calculus, lower pole left kidney. BLADDER: Fluid-filled. GASTROINTESTINAL TRACT: Appendix is normal. Gas and fluid-filled prominent small bowel loops. No intestinal wall thickening. Terminal ileum is normal. No pneumatosis intestinalis. No ascites. No pneumoperitoneum. No peripheral enhancing fluid collections in the peritoneal cavity. Gas and fluid-filled large intestine without gross dilatation. ABDOMINAL WALL: Small fat-containing umbilical hernia. LYMPH NODES: Mesenteric and retroperitoneal and inguinal prominent lymph nodes. VASCULAR: Intraluminal filling defect within the proximal main portal vein extending from the confluence. I do not see the right main portal vein. Engorged/prominent/dilated left pelvic veins/likely left ovarian veins shunting into the left accessory renal vein and superior mesenteric vein. The umbilical vein is not patent nor enlarged. No gross of perigastric esophageal varices. Mixed plaques in the abdominal aorta wall without aneurysm or dissection. Calcified plaque at the origin of the mesenteric arteries the main renal arteries and iliac arteries as well as the femoral arteries. Calcified plaques in the coronary arteries and thoracic aorta. PELVIC VISCERA: Atrophic uterus. OSSEOUS STRUCTURES: Multilevel thoracolumbar spondylosis pronounced at L2-3, L4-5. 10% volume loss likely related to old compression deformity at T8. Schmorl nodes in the inferior endplate of L4. Osteopenia versus osteoporosis. Levoconvex rotoscoliosis apex at L1-2. No acute fracture or dislocation in either hip. Sclerosis and the sacroiliac joints. CT/CT abdomen pelvis w IV con IMPRESSION: Cirrhosis without ascites. Nonocclusive thrombus likely old/chronic proximal main portal vein. Ileus without intestinal obstruction pattern. Shunting varices from the left pelvic/ovarian veins in 2 left accessory renal vein and superior mesenteric vein. Atrophic right kidney. Nonobstructing nephrolithiasis, left kidney. Questionable inflammatory versus infectious processes, left renal pelvis/pelvicalyceal system. Fleischner guidelines were followed. Electronically signed by: Dion Iglesias MD 03/16/2025 09:48 AM EST
--- NOTE | ~2025-03-16 | XR_ITS ---
CLINICAL HISTORY: cough 1 view chest x-ray Comparison: None provided Findings: Right lower lobe opacity. No pneumothorax. Normal heart size allowing for portable technique and suboptimal inspiratory effort. Normal pulmonary vascularity. No acute fracture. IMPRESSION: 1. Hypoventilation. 2. Right lower lobe opacity likely related to volume loss. Small pleural effusion and/or infiltrate is not entirely excluded. This document has been electronically signed by: Danni Sanderson DO on 03/18/2025 11:16:49
--- NOTE | ~2025-03-16 | XR_ITS ---
EXAMINATION: XR CHEST CLINICAL INFORMATION: fever, influenza, check for post flu pneumonia COMPARISON: Previous chest x-ray March 18, 2025 TECHNIQUE: 2 views of the chest were obtained. FINDINGS: Low lung volumes. Increased central bronchovascular markings and perihilar opacities left greater than right. This is increased from recent exam. Differential would include central airways disease and pneumonia versus pulmonary edema. New small bilateral pleural effusions. The cardiac silhouette does not appear enlarged. Mediastinal contours are unremarkable. Degenerative changes of the spine. Slight loss of height of a mid thoracic vertebral body, probably T8, suggestive of old mild compression fracture. XR/XR chest 2V IMPRESSION: Low lung volumes. Increased central bronchovascular markings and perihilar opacities left greater than right and small bilateral pleural effusions new or increased from March 18, 2025 exam. Differential would include pneumonia and pulmonary edema. Electronically signed by: Tamera Ponce MD 03/22/2025 09:47 AM [facility]
--- OUTSIDE RECORDS SUMMARY | 2025-03-16 06:55 | XMS_ITS | Clinical Summary ---
[facility] Address [address] [place] [address] Care Team Providers Care Claims Adjuster Crop Name Role Phone Ania Browning MD Primary Care Provider Surgical History Surgery Date Site/Laterality Comments CARPAL TUNNEL RELEASE 07/26/2008 PROCEDURE: [place] NEUROPLASTY &/TRANSPOS MEDIAN NRV CARPAL TUNNE CYSTOSCOPY 10/26/2011 PROCEDURE: [place] CYSTOURETHROSCOPY; COMMENT: Dr Sunny Miranda CYSTOSCOPY 03/31/2016 Left PROCEDURE: IA CYSTOURETHROSCOPY; COMMENT: ureteroscopy, laser lithotripsy, stent placement COLONOSCOPY 08/2008 PROCEDURE: HISTORICAL COLONOSCOPY OTHER SURGICAL HISTORY 09/11/2020 PROCEDURE: IA PRQ TRLUML CORONARY STENT W/ANGIO ONE ART/BRNCH [...] Documents on File Type Date Recorded Patient Facilities Custodian Expl anation Health Care Decision (hx) 03/31/2016 AD CARROLL DIRECTIVE Health Care Decision (hx) 03/31/2016 AD CARROLL DIRECTIVE Health Care Decision (hx) 03/31/2016 AD CARROLL DIRECTIVE Health Care Decision (hx) 03/31/2016 AD CARROLL DIRECTIVE Health Care Decision (hx) 03/31/2016 AD CARROLL DIRECTIVE Care Teams Claims Adjuster Crop Relationship Specialty Start Date End Date Ania Browning MD PCP - General Internal Medicine 12/02/21
--- NOTE | 2025-03-16 07:21 | ED.ABDPAIN ---
HPI - Abdominal Pain General Chief Complaint: Abdominal Pain Stated Complaint: ABD PAIN,N/V PER EMS Time Seen by Provider: 03/16/25 07:06 Source: patient and EMS Mode of arrival: EMS Limitations: no limitations History of Present Illness ED Provider: RAPHAEL Mckeon HPI narrative: This is a 69-year-old female history of esophageal obstruction, esophageal stricture, celiac disease, renal mass, prediabetes, anemia, cirrhosis of the liver, hypertension, CAD with history of stents, NSTEMI who presents to the emergency department with nausea, vomiting, diarrhea and diffuse abdominal pain ongoing for the past 3 days progressively worsening. Reports she is having a hard time keeping down food. Denies trauma to the abdomen. Denies fevers, chills, chest pain, shortness of breath, headache, vision changes, dizziness, weakness, changes in urinary or bowel habits. She has not eaten anything out of the ordinary Related Data Home Medications ?Medication ?Instructions ?Recorded ?Confirmed aspirin 81 mg chewable tablet 81 mg PO DAILY 02/08/25 03/16/25 Previous Rx's ?Medication ?Instructions ?Recorded albuterol sulfate 90 mcg/actuation 2 puff inhalation Q4-6H PRN 05/18/23 aerosol inhaler shortness of breath or wheezing #8.5 grams Allergies Allergy/AdvReac Type Severity Reaction Status Date / Time peach (PEACH) Allergy Intermediate DIFFICULTY Verified 03/16/25 06:49 BREATHING Review of Systems Review of Systems Yes all other systems are reviewed and are negative PMFSH Past Medical History Attestation statement: The following information was validated with the patient. 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 Mother No problems noted. Social History Social History Household Members: Family Housing: Homeless Are you a primary customer care consultant to a significant other at home: No Do you presently have visiting nurse or other home services: No Alcohol intake: former Comment: was drinking 1 drink per month stopped 4 months ago Patient Tobacco Use Status: Never used Tobacco Smoked in Last 30 Days: No e-Cigarette/Vaping Use: Never Used Second Hand Smoke Exposure: No Use of substances other than those prescribed or required for medical reasons: No Advance Directives: No Advance Directives Information Provided: Yes Do you have a plan to hurt others: No Plan service: No Current occupational status: employed Current occupation: [employer] Current occupational exposures/hazards: No Cognitive needs: No Hearing needs: No Vision needs: No Physical Exam ED Exam Exam: Appearance: Alert.? Oriented X3.? No acute distress.? Head: Normocephalic, atraumatic, no step-offs or deformities Eyes: Pupils equal, round and reactive to light.? ENT: Pharynx normal.? Neck: Normal inspection.? Neck supple.? CVS: Normal heart rate and rhythm.? Pulses normal.? Respiratory: No respiratory distress.? Breath sounds normal.? Abdomen: Soft and diffusely tender with normoactive bowel sounds.? Skin: Skin warm and dry.? Normal skin color.? Normal skin turgor.? Extremities: No lower extremity edema.? No calf ttp. 5/5 strength to bilateral upper and lower extremities Neuro: Oriented X 3.? No motor deficit.? No sensory deficit. CN 2-12 intact Vital Signs: Vital Signs - 24 hr 03/16/25 06:39 03/16/25 07:37 03/16/25 08:28 Temperature 97.7 F Pulse Rate 89 84 90 Respiratory Rate 18 17 22 H Blood Pressure 161/66 H 176/73 H 128/58 L Pulse Oximetry 100 100 Oxygen Delivery Method Room Air Room Air 03/16/25 08:41 03/16/25 10:20 03/16/25 10:44 Temperature 97.9 F Pulse Rate 89 80 88 Respiratory Rate 18 18 18 Blood Pressure 128/42 L 108/41 L 124/54 L Pulse Oximetry 99 96 Oxygen Delivery Method Room Air Room Air BMI result Body Mass Index 32.6 vss Course Reevaluation(s) Reevaluation #1: Patient having significant nausea and vomiting Zofran was ordered. CBC with leukocytosis and left shift, at this time infection suspected blood cultures, lactic IV fluids and antibiotics ordered. Time: 07:55 Reevaluation #2: Patient was noted to be positive for C diff. She was placed on contact precautions Lactic acid elevated at 2.5 she did receive IV fluids and antibiotics. This is also likely in the setting of poor p.o. intake/starvation ketosis. CT abdomen and pelvis with cirrhosis without ascites. Nonocclusive thrombus likely old in the main portal vein. Ileus without intestinal obstruction. Shunting varices from the left pelvic ovarian veins. Atrophic right kidney and nonobstructing nephrolithiasis. Plan is hospital admission patient not tolerating p.o. Time: 11:48 Reevaluation #3: Patient's C diff changes positive toxin is negative, her stool is completely liquid, I did give p.o. vanco however I am going to run this by Infectious Disease. Having a negative toxin reduced as suspicion of acute infection. Time: 11:52 Additional Reevaluation(s): Plan hospital admission Medical Decision Making Medical Decision Making [facility] Narrative: 0722 69-year-old female presents with nausea, vomiting, diarrhea and diffuse abdominal pain x3 days. Physical exam with diffuse abdominal discomfort normoactive bowel sounds. History and physical exam concerning for viral illness versus gastroenteritis versus ileus. Unlikely obstruction, acute abdomen, appendicitis, cholecystitis, diverticulitis, pancreatitis. Will rule out metabolic derangements, anemia. Will also rule out urinary infection. Plan labs, imaging, urine Differential Diagnosis Differential Diagnoses: The differential diagnosis associated with the presentation includes (History and physical exam concerning for viral illness versus gastroenteritis versus ileus. Unlikely obstruction, acute abdomen, appendicitis, cholecystitis, diverticulitis, pancreatitis. Will rule out metabolic derangements, anemia. Will also rule out urinary infection.) Admission/Observation Consideration of admission/observation: Escalation of care including admission/observation considered Lab Data [facility] Lab Attestation statement: I reviewed the patient's lab results. 03/16/25 07:31 03/16/25 07:31 Labs: Lab Results 03/16/25 03/16/25 03/16/25 Range/Units 07:31 07:43 08:30 WBC 14.5 H (4.8-10.8) X10*3/uL RBC 3.75 L (4.20-5.50) X10*6/uL Hgb 12.2 (12.0-16.0) g/dl Hct 36.9 L (37.0-47.0) % MCV 98.4 H (80.0-98.0) fL MCH 32.5 (27.0-33.0) pg MCHC 33.1 (31.0-35.0) g/dl RDW 14.8 (11.0-16.0) % Plt Count 129 L D (160-400) X10*3/uL MPV 12.3 (9.4-12.3) fL Immature Gran % (Auto) 0.6 H (0.0-0.4) % Neut % (Auto) 81.6 H (45-73) % Lymph % (Auto) 9.1 L (20-40) % [place] % (Auto) 5.6 (2-11) % Eos % (Auto) 2.9 (0-4) % Baso % (Auto) 0.2 (0-2) % Lymph # (Auto) 1.3 (1.2-4.9) X10*3/uL [place] # (Auto) 0.8 (0.1-1.2) X10*3/uL Eos # (Auto) 0.4 (0.0-0.4) X10*3/uL Baso # (Auto) 0.0 (0.0-0.2) X10*3/uL Abs Immat Gran (auto) 0.08 H (0.00-0.03) X10*3/uL Absolute Neuts (auto) 11.8 H (2.0-8.3) x10*3/uL Absolute Nucleated RBC 0.000 (0.0-0.012) X10*3/uL Nucleated RBC % (auto) 0.0 (0.0-0.2) /100WBC Sodium 139 (135-145) mmol/L Potassium 3.8 (3.3-5.1) mmol/L Chloride 111 H (96-108) mmol/L Carbon Dioxide 22 (22-29) mmol/L Anion Gap 10 L (12-20) BUN 17 H (9-16) mg/dL Creatinine 1.21 (0.5-1.4) mg/dL Estim Creat Clear Calc 40.5 Estimated GFR 44 Random Glucose 124 H (60-115) mg/dL Lactic Acid 2.5 H* (0.5-2.0) mmol/L Calcium 8.7 (8.4-10.2) mg/dL Magnesium 1.8 (1.6-2.6) mg/dL Total Bilirubin 0.9 (0.0-1.0) mg/dL AST 45 H (5-31) U/L ALT 21 (0-31) U/L Alkaline Phosphatase 113 (39-117) U/L Total Protein 8.4 H (6.5-8.0) g/dL Albumin 3.1 L (3.5-5.0) g/dL Lipase 12 (8-78) U/L Stl C. cayetanensis PCR Not Detected (Not Detect.) Stool Rotavirus A PCR Not Detected (Not Detect.) Stl Adenov F 40/41 PCR Not Detected (Not Detect.) Stool Astrovirus (PCR) Not Detected (Not Detect.) Stool Campylobacter PCR Not Detected (Not Detect.) Stool Cryptosporidium PCR Not Detected (Not Detect.) Stl Sh Tox Pr E STEC PCR Not Detected (Not Detect.) Stool E coli O157 PCR Not applicable (Not Detect.) Stl Enterotoxigenic E PCR Not Detected (Not Detect.) Stool EPEC (PCR) Not Detected (Not Detect.) Stool EAEC (PCR) Not Detected (Not Detect.) Stl E. histolytica PCR Not Detected (Not Detect.) Stool Giardia Lamblia PCR Not Detected (Not Detect.) Stl P. shigelloides PCR Not Detected (Not Detect.) Stool Salmonella PCR Not Detected (Not Detect.) Stool Sapovirus (PCR) Not Detected (Not Detect.) Stl Shigella/EIEC PCR Not Detected (Not Detect.) St Y.enterocolitica PCR Not Detected (Not Detect.) Stool Vibrio (PCR) Not Detected (Not Detect.) Stl Vibrio cholerae PCR Not Detected (Not Detect.) Stl Norovirus GI/GII PCR Not Detected (Not Detect.) C. difficile Tox B Gene POSITIVE A* (Negative) C. difficile Toxin A&B Negative (Negative) C. difficile Interpret SEE NOTE COVID-19 (WEI) Negative (Negative) COVID-19 Clin Com See Note Influenza Type A ([facility]) Negative (Negative) Influenza Type B (NORMA) Negative (Negative) Influenza A & B Note See Note Independent Interpretation I performed an independent interpretation of an: CT Scan Radiology Impression Discussion of test interpretation with radiology: I have reviewed the radiologist's reading. Independent Historian Clinical information obtained from an independent historian. History obtained from or confirmed by: EMS External Record Review External record reviewed: Inpatient record, Office record, Outpatient record, Prior outpatient labs, Prior outpatient radiology, Primary care record and Outside ED record Chronic Conditions Patient?s care impacted by: Other (see hpi) Medications Administered Generic Name Dose Route Start Last Admin Trade Name Freq PRN Reason Stop Dose Admin Vancomycin HCl 125 mg 03/16/25 13:00 03/16/25 09:24 Vancomycin Hcl 125 Mg Capsule PO 125 mg QID PATRICIA Administration Discontinued Medications Generic Name Dose Route Start Last Admin Trade Name Freq PRN Reason Stop Dose Admin Sodium Chloride 1,000 mls @ 999 mls/hr 03/16/25 07:45 03/16/25 10:20 Ns IV 03/16/25 08:45 Infused .Q1H1M PATRICIA Infusion Sodium Chloride 2,272.5 mls @ 2,272.5 mls/hr 03/16/25 07:54 03/16/25 10:20 Ns 30 ml/kg infuse over 1 hr (2272.5 ml) 03/16/25 08:53 Infused IV Infusion .Q1H STA Piperacillin Sod/Tazobactam 50 mls @ 100 mls/hr 03/16/25 07:54 03/16/25 09:10 Sod 3.375 gm/ Sodium Chloride IV 03/16/25 08:23 Infused ONCE ONE Infusion Iohexol 100 ml 03/16/25 09:31 03/16/25 09:32 Iohexol 350 Mg/Ml 100 Ml Infus..Btl IV 03/16/25 09:32 85 ml ONCE ONE Administration Ondansetron HCl 4 mg 03/16/25 07:31 03/16/25 07:36 Ondansetron Hcl 4 Mg/2 Ml Vial IVPUSH 03/16/25 07:32 4 mg ONCE ONE Administration Critical Care Time Critical Care Time Critical Care Time: Yes Total Critical Care Time: 45 Attestation: I attest to this time spent taking care of the patient, obtaining history, physical, reviewing labs, imaging, speaking to my attending and or speaking to specialist. Or preforming a procedure Discharge Plan Discharge Clinical Impression: Nausea & vomiting, Abdominal pain, Clostridium difficile diarrhea, Ileus, Portal vein thrombosis Patient Disposition: Admitted As Inpatient
[2025-03-16 07:36] LABS: MANUAL DIFF FLAG NO
[2025-03-16 07:39] LABS: Hematocrit 36.9 % (37.0-47.0); Hemoglobin 12.2 g/dl (12.0-16.0); Imm Gran Abs Auto 0.08 X10*3/uL (0.00-0.03); Imm Gran Pct Auto 0.6 % (0.0-0.4); Lymphocytes Absolute Auto 1.3 X10*3/uL (1.2-4.9); Mean Corpuscular HGB Conc 33.1 g/dl (31.0-35.0); Mean Corpuscular Hemoglobin 32.5 pg (27.0-33.0); Mean Corpuscular Volume 98.4 fL (80.0-98.0); NRBC Abs Auto 0.000 X10*3/uL (0.0-0.012); NRBC Pct Auto 0.0 /100WBC (0.0-0.2); Platelet Count 129 X10*3/uL (160-400); Red Blood Count 3.75 X10*6/uL (4.20-5.50); White Blood Count 14.5 X10*3/uL (4.8-10.8)
[2025-03-16 07:53] LABS: COVID-19 Test Negative (Negative); IDNOW Serial# 58CA691E
[2025-03-16 07:54] LABS: IDNOW Serial# 55D5AD1C; Influenza B2 Negative (Negative)
[2025-03-16 07:55] LABS: Alanine Aminotransferase 21 U/L (0-31); Albumin Level 3.1 g/dL (3.5-5.0); Alkaline Phosphatase 113 U/L (39-117); Anion Gap 10 (12-20); Aspartate Amino Transferase 45 U/L (5-31); Blood Urea Nitrogen 17 mg/dL (9-16); Calcium 8.7 mg/dL (8.4-10.2); Carbon Dioxide 22 mmol/L (22-29); Chloride 111 mmol/L (96-108); Creatinine Clr Calc Pharmacy 40.5; Estimated Glomerular Filt Rate 44; Lipase 12 U/L (8-78); Magnesium 1.8 mg/dL (1.6-2.6); Potassium 3.8 mmol/L (3.3-5.1); Sodium 139 mmol/L (135-145); Total Protein 8.4 g/dL (6.5-8.0)
--- NOTE | 2025-03-16 08:38 | PC.NURSE ---
Pt presents to ED via EMS from home for multiple days of N/V/D and ABD pain, seen here a few days ago. Pt alert and oriented, breathing even and unlabored, skin clammy, pale. Pain 10/10, diffuse ABD.
--- NOTE | 2025-03-16 09:30 | PC.NURSE ---
Per provider give morning dose of vanco
[2025-03-16] MEDS: iohexoL 350 MG/ML 100 ML INFUS..BTL IV (09:32)
--- NOTE | 2025-03-16 10:21 | PC.NURSE ---
To clarify: pt only given sepsis fluid bolus total. Not the extra liter as well
[2025-03-16 10:33] LABS: Reflex Lactate? Lactic Acid Added
[2025-03-16 10:44] LABS: E. coli EAEC Not Detected (Not Detect.); E. coli EPEC Not Detected (Not Detect.); E. coli ETEC Not Detected (Not Detect.); E. coli STEC Not Detected (Not Detect.); Shigella sp./EIEC Not Detected (Not Detect.)
[2025-03-16 11:13] LABS: CDIFF Internal ctrl Dots and bkg OK (V); CDiff Toxin Negative (Negative)
[2025-03-16 11:18] LABS: CDiff Gene PCR POSITIVE (Negative)
--- NOTE | 2025-03-16 12:01 | P.HPHOSP_ITS ---
History of Present Illness Date of Service: 03/16/25 Attending physician on admission: Marietta Rollins Chief Complaint: diarrhea This is a 69 year old female with history of vertigo, autoimmune hemolytic anemia, auto immune hepatitis, nephrolithiasis, left renal stent, cirrhosis, celiac disease, HLD, NSTEMI, PCI X3, CAD, asthma, esophageal stricture, gastritis, esophagitis who presents to the ED with abdominal pain, vomiting and diarrhea. Patient reports 3 days of upper abdominal pain with associated nonbloody emesis and diarrhea. She reports multiple episodes of diarrhea daily. In the emergency department she was noted to have leukocytosis of 14.5, elevated lactic acid of 2.5. CT scan was obtained which showed chronic findings. Patient had multiple episodes of diarrhea in the emergency department and GI profile was obtained which was unremarkable, C diff PCR was positive. She was treated with IV antibiotics and 30 cc/kg bolus of IV fluid in the emergency department. Review of Systems 2 Review of Systems: Yes all other systems are reviewed and are negative Constitutional: Constitutional: Reports chills and Denies fever(s) Cardiovascular: Cardiovascular: Denies chest pain and Denies palpitations Respiratory: Respiratory: Denies cough Gastrointestinal: Gastrointestinal: Reports abdominal pain, Reports diarrhea and Reports vomiting Endocrine: Endocrine: Denies palpitations [facility] Medical History Poor dentition Esophageal stricture Celiac disease Anemia Hematuria Left renal mass Staghorn calculus UTI (urinary tract infection) Hx of vertigo Proteinuria 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 Mother No problems noted. Surgical History History of liver biopsy History of esophagogastroduodenoscopy (EGD) Hx of bilateral cataract extraction Hx of heart artery stent Hx of lithotripsy S/P cardiac catheterization Hx laparoscopic cholecystectomy History of carpal tunnel release H/O colonoscopy Hx of cystoscopy Social History Household Members: Family Housing: Homeless Are you a primary rn progressive care unit to a significant other at home: No Do you presently have visiting nurse or other home services: No Alcohol intake: former Comment: was drinking 1 drink per month stopped 4 months ago Patient Tobacco Use Status: Never used Tobacco Smoked in Last 30 Days: No e-Cigarette/Vaping Use: Never Used Second Hand Smoke Exposure: No Use of substances other than those prescribed or required for medical reasons: No Advance Directives: No Advance Directives Information Provided: Yes Do you have a plan to hurt others: No Plan service: No Current occupational status: employed Current occupation: [employer] Current occupational exposures/hazards: No Cognitive needs: No Hearing needs: No Vision needs: No Meds Allergies Allergy/AdvReac Type Severity Reaction Status Date / Time peach (PEACH) Allergy Intermediate DIFFICULTY Verified 03/16/25 06:49 BREATHING Active Medications: Current Medications Vancomycin HCl (Vancomycin Hcl 125 Mg Capsule) 125 mg PO QID PATRICIA Last Admin: 03/16/25 09:24 Dose: 125 mg Home Medications ?Medication ?Instructions ?Recorded ?Confirmed ?Last Taken ?Type aspirin 81 mg chewable tablet 81 mg PO DAILY 02/08/25 03/08/25 02/06/25 History Physical Exam 2 Vital Signs and Narrative: Vital Signs: Last Vital Signs Temp 97.9 F 03/16/25 08:41 Pulse 88 03/16/25 10:44 Resp 18 03/16/25 10:44 BP 124/54 L 03/16/25 10:44 Pulse Ox 96 03/16/25 10:20 O2 Del Method Room Air 03/16/25 10:20 BMI result Body Mass Index 32.6 Const: General: cooperative, alert and awake Nutritional Appearance: o verweight Orientation/consciousness: patient oriented x3 Resp: Effort & Inspection: normal respiratory effort, able to speak in complete sentences, no respiratory distress and no use of accessory muscles Cardio: Rate: regular rate GI: Other: no significant tenderness Inspection: No distended Palpation (GI): Soft to palpation Neuro: General: patient oriented x3, moves all extremities and CN's II-XI intact bilaterally Results Labs 03/16/25 07:31 03/16/25 07:31 Labs: Laboratory Results - last 24 hr 11/07/25 11/07/25 11/07/25 07:31 07:43 08:30 MCV 98.4 H MCH 32.5 MCHC 33.1 RDW 14.8 Plt Count 129 L D MPV 12.3 Immature Gran % (Auto) 0.6 H Neut % (Auto) 81.6 H Lymph % (Auto) 9.1 L [place] % (Auto) 5.6 Eos % (Auto) 2.9 Baso % (Auto) 0.2 Lymph # (Auto) 1.3 [place] # (Auto) 0.8 Eos # (Auto) 0.4 Baso # (Auto) 0.0 Abs Immat Gran (auto) 0.08 H Absolute Neuts (auto) 11.8 H Absolute Nucleated RBC 0.000 Nucleated RBC % (auto) 0.0 Anion Gap 10 L Estim Creat Clear Calc 40.5 Estimated GFR 44 Random Glucose 124 H Lactic Acid 2.5 H* Calcium 8.7 Magnesium 1.8 Total Bilirubin 0.9 AST 45 H ALT 21 Alkaline Phosphatase 113 Total Protein 8.4 H Albumin 3.1 L Lipase 12 Stl C. cayetanensis PCR Not Detected Stool Rotavirus A PCR Not Detected Stl Adenov F 40/41 PCR Not Detected Stool Astrovirus (PCR) Not Detected Stool Campylobacter PCR Not Detected Stool Cryptosporidium PCR Not Detected Stl Sh Tox Pr E STEC PCR Not Detected Stool E coli O157 PCR Not applicable Stl Enterotoxigenic E PCR Not Detected Stool EPEC (PCR) Not Detected Stool EAEC (PCR) Not Detected Stl E. histolytica PCR Not Detected Stool Giardia Lamblia PCR Not Detected Stl P. shigelloides PCR Not Detected Stool Salmonella PCR Not Detected Stool Sapovirus (PCR) Not Detected Stl Shigella/EIEC PCR Not Detected St Y.enterocolitica PCR Not Detected Stool Vibrio (PCR) Not Detected Stl Vibrio cholerae PCR Not Detected Stl Norovirus GI/GII PCR Not Detected C. difficile Tox B Gene POSITIVE A* C. difficile Toxin A&B Negative C. difficile Interpret SEE NOTE COVID-19 ([facility]I) Negative COVID-19 Clin Com See Note Influenza Type A ([facility]) Negative Influenza Type B ([facility]MA) Negative Influenza A & B Note See Note Imaging Radiologist's Impressions: Impressions Abdomen/Pelvis CT 03/16/25 09:12 IMPRESSION: Cirrhosis without ascites. Nonocclusive thrombus likely old/chronic proximal main portal vein. Ileus without intestinal obstruction pattern. Shunting varices from the left pelvic/ovarian veins in 2 left accessory renal vein and superior mesenteric vein. Atrophic right kidney. Nonobstructing nephrolithiasis, left kidney. Questionable inflammatory versus infectious processes, left renal pelvis/pelvicalyceal system. Fleischner guidelines were followed. Electronically signed by: Dion Iglesias MD 03/16/2025 09:48 AM [facility] Assessment and Plan (1) Nausea & vomiting: Status: Acute (2) Abdominal pain: Status: Acute Plan This is a 69 year old female with history of vertigo, autoimmune hemolytic anemia, auto immune hepatitis/liver cirrhosis with chronic nonocclusive thrombus of portal vein, nephrolithiasis, celiac disease, HLD, NSTEMI, PCI X3, CAD, asthma, esophageal stricture, gastritis, esophagitis who presents with abdominal pain, vomiting and diarrhea Severe sepsis due to probable GI source elevated lactic acid to 2.5, received 30cc/kg bolus and LA resolved CT A/P no acute changes GI panel negative; C diff studies consistent with colonization but due to diffuse liquid stools will treat as active infection with oral vancomycin celiac dz gluten free diet h/o esophageal stricture NDD3 diet as per previous admission h/o liver cirrhosis ?autoimmune/chronic thrombus of portal vein outpatient follow up with GI Chronic thrombocytopenia Due to above liver disease CAD only on baby asa dvt ppx - lovenox Patient will likely require 2 midnight stay in the hospital for management of diarrhea, sepsis, probable C diff infection Quality Stroke Does the patient have a stroke diagnosis?: No VTE Prior VTE?: No VTE Risk Level:: Medical - moderate - high VTE Device Contraindication: N/A - Device Ordered VTE Drug Contraindication: N/A - Med Ordered
--- NOTE | 2025-03-16 12:50 | PHA.MEDREC ---
Addendum entered by Roderick Slade, PharmD 03/16/25 15:23: MED REC CHECKED BY [facility] Original Note: Pharmacy Consult ? Medication Reconciliation Pharmacy has completed the medication reconciliation. Spoke with pt and she confirmed her medications. Claims shows pt got Omeprazole 40mg 02/08 for 90 days but pt state she is not aware she is suppose to take that medication when brought up.
[2025-03-16 12:53] LABS: ~Lactic Acid-LAB USE ONLY 1.5 mmol/L (0.5-2.0)
--- NOTE | 2025-03-16 13:49 | HO.NURTONUR ---
Pt arrived c/o worsening abd pain and diarrhea (liquid, favian colored, foul smelling). ED workup pos for c-diff (tox neg), elevated lac (2.5-1.5). Hx vertigo, autoimmune hemolytic anemia, auto immune hepatitis, nephrolithiasis, left renal stent, cirrhosis, celiac disease, HLD, NSTEMI, PCI X3, CAD, asthma, esophageal stricture, gastritis, esophagitis. Admitted for IVF, PO abx, and symptom management. x1 assist to bedside commode, attempted to obtain urine sample multiple times but contamination occurred due to diarrhea. Aaox4.
[2025-03-16] MEDS: Lactated Ringers 1,000 ML 75 ML IVCONT (15:56)
[2025-03-16] MEDS: 0.9 % Sodium Chloride Flush 3 ML SYRINGE IVFLUSH (16:00)
[2025-03-17 03:59] VITALS: BP 127/59; PULSE 74; RESP 17; TEMP 36.3; O2SAT 95
[2025-03-17] MEDS: Lactated Ringers 1,000 ML 75 ML IVCONT (04:46)
[2025-03-17 06:37] LABS: Hematocrit 29.1 % (37.0-47.0); Hemoglobin 9.6 g/dl (12.0-16.0); Mean Corpuscular HGB Conc 33.0 g/dl (31.0-35.0); Mean Corpuscular Hemoglobin 32.1 pg (27.0-33.0); Mean Corpuscular Volume 97.3 fL (80.0-98.0); NRBC Abs Auto 0.000 X10*3/uL (0.0-0.012); NRBC Pct Auto 0.0 /100WBC (0.0-0.2); Red Blood Count 2.99 X10*6/uL (4.20-5.50); White Blood Count 5.9 X10*3/uL (4.8-10.8)
[2025-03-17 06:39] LABS: Platelet Count 43 X10*3/uL (160-400)
[2025-03-17 07:13] LABS: Anion Gap 8 (12-20); Blood Urea Nitrogen 12 mg/dL (9-16); Carbon Dioxide 19 mmol/L (22-29); Chloride 116 mmol/L (96-108); Creatinine Clr Calc Pharmacy 49.0; Estimated Glomerular Filt Rate 55; Potassium 3.2 mmol/L (3.3-5.1); Sodium 140 mmol/L (135-145)
[2025-03-17 07:19] LABS: Calcium 7.7 mg/dL (8.4-10.2)
[2025-03-17 07:23] VITALS: BP 129/62; PULSE 72; RESP 16; TEMP 36.6; O2SAT 97
[2025-03-17] MEDS: Potassium Chloride/H20 10 MEQ/100 ML PIGGYBACK 100 MEQ IV ×2 (08:03→09:25)
--- NOTE | 2025-03-17 11:41 | P.PNIM_ITS ---
Subjective Subjective Date of Service: 03/17/25 Review of Systems Follow up GUANACO has cdiff eating food Physical Exam 2 Exam: Exam: Appearing in no acute distress lung sounds are clear to auscultation heart regular rate rhythm, clear S1, S2 positive bowel sounds, abdomen is soft, nontender neuro patient is alert x3, no focal deficits Vital Signs: Vital Signs: Last Vital Signs Temp 97.8 F 03/17/25 07:23 Pulse 72 03/17/25 07:23 Resp 16 03/17/25 07:23 BP 129/62 03/17/25 07:23 Pulse Ox 97 03/17/25 07:23 O2 Del Method Room Air 03/17/25 07:23 BMI result Body Mass Index 32.7 Objective Data Active Medications Acetaminophen (Acetaminophen 325 Mg Tablet) 650 mg PO Q6H PRN PRN Reason: Pain, Mild 1-3,fever,headache Albuterol Sulfate (Albuterol Sulfate 90 Mcg 8 Gm Inhaler) 2 puff INHALE Q4H PRN PRN Reason: shortness of breath or wheezing Aspirin (Aspirin 81 Mg Tab.Chew) 81 mg PO DAILY [facility] Last Admin: 03/17/25 08:09 Dose: 81 mg Documented By: JEY Calcium Carbonate (Calcium Carbonate 750 Mg Tab.Chew) 750 mg PO Q4H PRN PRN Reason: Heartburn Enoxaparin Sodium (Enoxaparin Sodium 40 Mg/0.4 Ml Syringe) 40 mg SUBCUT Q24H [facility] Last Admin: 03/16/25 13:25 Dose: 40 mg Documented By: ROXANNE Lactated Ringer's (Lr) 1,000 mls @ 75 mls/hr IVCONT .[id number] [facility] Last Admin: 03/17/25 04:46 Dose: 75 mls/hr Documented By: LOVELY Magnesium Hydroxide (Milk Of Magnesia 30 Ml Oral.Susp) 30 ml PO DAILY PRN PRN Reason: Constipation Melatonin (Melatonin 3 Mg Tablet) 6 mg PO BEDTIME PRN PRN Reason: Insomnia Sodium Chloride (0.9 % Sodium Chloride Flush 3 Ml Syringe) 3 ml IVFLUSH QSHIFT [facility] Last Admin: 03/17/25 08:08 Dose: Not Given Documented By: JEY Non-Admin Reason: IV Running Vancomycin HCl (Vancomycin Hcl 125 Mg Capsule) 125 mg PO QID [facility] Last Admin: 03/17/25 08:08 Dose: 125 mg Documented By: JEY Labs 03/17/25 06:03 03/17/25 06:03 Labs: Laboratory Results - last 24 hr 03/16/25 03/17/25 12:26 06:03 MCV 97.3 MCH 32.1 MCHC 33.0 RDW 14.9 Plt Count 43 L D MPV 12.8 H Absolute Nucleated RBC 0.000 Nucleated RBC % (auto) 0.0 Anion Gap 8 L Estim Creat Clear Calc 49.0 Estimated GFR 55 Random Glucose 71 Lactic Acid F/U @ 2Hr 1.5 Calcium 7.7 L D Microbiology Microbiology Results: Microbiology 03/16/25 08:41 Blood Culture - Preliminary Blood - Venous No growth after 24 hours. 03/16/25 08:30 Blood Culture - Preliminary Blood - Venous No growth after 24 hours. 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 Resolved possible viral gastritis s/p IV fluids taking orals Hypokalemia repleted celiac dz gluten free diet h/o esophageal stricture NDD3 diet as per previous admission h/o liver cirrhosis ?autoimmune/chronic thrombus of portal vein outpatient follow up with GI Chronic thrombocytopenia Due to above liver disease CAD asa dvt ppx - lovenox Full code Quality Stroke Does the patient have a stroke diagnosis?: No VTE Prior VTE?: No VTE Risk Level:: Medical - moderate - high VTE Device Contraindication: N/A - Device Ordered VTE Drug Contraindication: N/A - Med Ordered
[2025-03-17 13:05] VITALS: BP 159/72; PULSE 90; RESP 16; TEMP 37.2; O2SAT 99
[2025-03-17 15:56] VITALS: BP 150/68; PULSE 78; RESP 20; TEMP 36.9; O2SAT 98
--- NOTE | 2025-03-17 16:31 | MHC.CM.PN ---
PT REPORTS SHE CONTINUES TO BE HOMELESS, HOWEVER IS STAYING WITH HER [facility] TER[facility] SHE SAYS SHE WAS SUPPOSED TO MEET WITH [facility] IN [place] THE SAME DAY SHE WAS ADMITTED SHE WILL CALL THEM ON WEDNESDAY TO RESCHEDULE SHE USES A CANE HCP ON FILE PCP: KATHRYN DIXON IMM DELIVERED DCP: SHE WILL RETURN TO [facility] VIA LYFT IF [facility] CAN SEE HER DAY OF DC, SHE CAN TAKE A LYFT TO [facility] IN [place]
[2025-03-17] MEDS: 0.9 % Sodium Chloride Flush 3 ML SYRINGE IVFLUSH ×2 (17:31→21:35)
[2025-03-17 18:05] LABS: Appearance Urine Clear; Glucose Urine UA Negative (Negative); PH 5.5 (5.0-9.0); Specific Gravity - Urine 1.020 (1.005-1.025); UMIC TRIGGER UACC YES
[2025-03-17 18:08] LABS: UACC Culture Trigger YES
[2025-03-17 20:00] VITALS: BP 140/70; PULSE 76; RESP 20; TEMP 36.8; O2SAT 99
[2025-03-18] VITALS (8 sets, daily range): BP systolic 139–188; BP diastolic 64–84; PULSE 89–113; RESP 16–20; TEMP 37–39.6; O2SAT 92–98
[2025-03-18 08:53] LABS: Potassium 3.5 mmol/L (3.3-5.1)
--- NOTE | 2025-03-18 09:10 | P.PNIM_ITS ---
Subjective Subjective Date of Service: 03/18/25 Review of Systems Follow up NVD has cdiff eating food c/o cough, low grade temp Physical Exam 2 Exam: Exam: Appearing in no acute distress lung sounds are clear to auscultation heart regular rate rhythm, clear S1, S2 positive bowel sounds, abdomen is soft, nontender neuro patient is alert x3, no focal deficits Vital Signs: Vital Signs: Last Vital Signs Temp 100.6 F H 03/18/25 08:00 Pulse 90 03/18/25 08:00 Resp 16 03/18/25 08:00 BP 168/77 H 03/18/25 08:00 Pulse Ox 94 03/18/25 08:00 O2 Del Method Room Air 03/18/25 08:00 BMI result Body Mass Index 32.7 Objective Data Active Medications Acetaminophen (Acetaminophen 325 Mg Tablet) 650 mg PO Q6H PRN PRN Reason: Pain, Mild 1-3,fever,headache Albuterol Sulfate (Albuterol Sulfate 90 Mcg 8 Gm Inhaler) 2 puff INHALE Q4H PRN PRN Reason: shortness of breath or wheezing Aspirin (Aspirin 81 Mg Tab.Chew) 81 mg PO DAILY [facility] Last Admin: 03/17/25 08:09 Dose: 81 mg Documented By: JEY Calcium Carbonate (Calcium Carbonate 750 Mg Tab.Chew) 750 mg PO Q4H PRN PRN Reason: Heartburn Enoxaparin Sodium (Enoxaparin Sodium 40 Mg/0.4 Ml Syringe) 40 mg SUBCUT Q24H [facility] Last Admin: 03/17/25 14:22 Dose: 40 mg Documented By: JEY Magnesium Hydroxide (Milk Of Magnesia 30 Ml Oral.Susp) 30 ml PO DAILY PRN PRN Reason: Constipation Melatonin (Melatonin 3 Mg Tablet) 6 mg PO BEDTIME PRN PRN Reason: Insomnia Sodium Chloride (0.9 % Sodium Chloride Flush 3 Ml Syringe) 3 ml IVFLUSH QSHIFT [facility] Last Admin: 03/17/25 21:35 Dose: 3 ml Documented By: LOVELY Vancomycin HCl (Vancomycin Hcl 125 Mg Capsule) 125 mg PO QID [facility] Last Admin: 03/17/25 21:34 Dose: 125 mg Documented By: LOVELY Labs 03/17/25 06:03 03/18/25 08:35 Labs: Laboratory Results - last 24 hr 03/17/25 17:37 Urine Color Yellow Urine Appearance Clear Urine pH 5.5 Ur Specific [place] 1.020 Urine Protein Negative Urine Glucose (UA) Negative Urine Ketones Negative Urine Blood Small (1+) H Urine Nitrite Negative Ur Leukocyte Esterase Small (1+) H Urine RBC 6-10 H Urine WBC 6-10 H Ur Squamous Epith Cells 0-2 Urine Bacteria None Seen Hyaline Casts 3-5 Microbiology Microbiology Results: Microbiology 03/16/25 08:41 Blood Culture - Preliminary Blood - Venous No growth after 24 hours. 03/16/25 08:30 Blood Culture - Preliminary Blood - Venous No growth after 24 hours. 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 Resolved possible viral gastritis s/p IV fluids taking orals Hypokalemia. Resolved repleted celiac dz gluten free diet h/o esophageal stricture NDD3 diet as per previous admission h/o liver cirrhosis ?autoimmune/chronic thrombus of portal vein outpatient follow up with GI Chronic thrombocytopenia Due to above liver disease CAD asa dvt ppx - lovenox Full code Quality Stroke Does the patient have a stroke diagnosis?: No VTE Prior VTE?: No VTE Risk Level:: Medical - moderate - high VTE Device Contraindication: N/A - Device Ordered VTE Drug Contraindication: N/A - Med Ordered
[2025-03-18] MEDS: 0.9 % Sodium Chloride Flush 3 ML SYRINGE IVFLUSH ×3 (09:41→20:18)
[2025-03-18 11:59] LABS: Chlamydia pneumoniae PCR Not Detected (Not Detect.); Coronavirus 229E PCR Not Detected (Not Detect.); Coronavirus HKU1 PCR Not Detected (Not Detect.); Coronavirus NL63 PCR Not Detected (Not Detect.); Coronavirus OC43 PCR Not Detected (Not Detect.); Influenza A H1-2009 PCR Detected (Not Detect.); RSV PCR Not Detected (Not Detect.); Rhino/Enterovirus PCR Not Detected (Not Detect.)
[2025-03-18 13:06] LABS: SARS-CoV-2 PCR Not Detected (Not Detect.)
[2025-03-18 13:07] LABS: Influenza A H1 PCR Not Detected (Not Detect.); Influenza A H3 PCR Not Detected (Not Detect.)
--- NOTE | 2025-03-18 18:03 | PM.EVENT ---
Event Note Date of Service: 03/18/25 Event Note: pt w/ feeling ill, fever, newly diagnosed influenza. started on tamiflu, underlying cdif, cxr finding likely from flu. Likely with viral sepsis, start IVF Time Spent With Patient Time: Total time managing care of this patient today ____ minutes.
[2025-03-18] MEDS: Lactated Ringers 1,000 ML 100 ML IVCONT ×2 (18:19→22:12)
[2025-03-18 18:25] LABS: Appearance Urine Clear; Glucose Urine UA Negative (Negative); PH 5.5 (5.0-9.0); Specific Gravity - Urine 1.015 (1.005-1.025); UMIC TRIGGER UACC YES
--- NOTE | 2025-03-18 19:11 | PC.NURSE ---
Pt alert and oriented this morning c/o abdominal pain with loose stool episodes decreasing. Pt temp increased t/o the day as did cough and abd cramping. BP also increasing t/o day. MD made aware and resp panel ordered which resulted in positive Flu A. Tamiflu started per MD and pt put into droplet precautions in addition to CDiff contact precautions from before. At 1800 Pt showed increased drowsiness, but remains alert and oriented x4. MD made aware, rectal temp of 103.3, 92% RA, BP 170/64 pulse 113. Pt vomited w small amount emesis. MD ordered st cath and UA, RT called for consult. Pt currently on Oximask at 3L at 98% saturation, pulse 108, resting comfortably but very drowsy. Does wake to name and is AXO x4. lieutenant shift supervisor received reort, RT will assist w monitoring, pt remains stable and vss improving.
[2025-03-19] VITALS (7 sets, daily range): BP systolic 134–156; BP diastolic 63–80; PULSE 73–94; RESP 14–18; TEMP 36.4–38.9; O2SAT 89–99
[2025-03-19] MEDS: Lactated Ringers 1,000 ML 100 ML IVCONT ×2 (08:40→19:23)
--- NOTE | 2025-03-19 08:41 | P.PNIM_ITS ---
Subjective Subjective Date of Service: 03/19/25 Review of Systems Follow up NVD has cdiff c/o cough, low grade temp now has fever Physical Exam 2 Exam: Exam: Appearing in no acute distress but ill lung sounds are clear to auscultation heart regular rate rhythm, clear S1, S2 positive bowel sounds, abdomen is soft, nontender neuro patient is alert x3, no focal deficits Vital Signs: Vital Signs: Last Vital Signs Temp 102.0 F H 03/19/25 07:18 Pulse 94 03/19/25 07:18 Resp 18 03/19/25 07:18 BP 138/63 03/19/25 07:18 Pulse Ox 89 L 03/19/25 07:18 O2 Del Method Room Air 03/19/25 07:18 O2 Flow Rate 3 03/18/25 19:00 BMI result Body Mass Index 32.7 Objective Data Active Medications Acetaminophen (Acetaminophen 325 Mg Tablet) 650 mg PO Q6H PRN PRN Reason: Pain, Mild 1-3,fever,headache Last Admin: 03/19/25 06:05 Dose: 650 mg Documented By: DESTINEE Albuterol Sulfate (Albuterol Sulfate 90 Mcg 8 Gm Inhaler) 2 puff INHALE Q4H PRN PRN Reason: shortness of breath or wheezing Albuterol Sulfate (Albuterol Sulfate (0.083%) 2.5 Mg/3 Ml Vial.Neb) 2.5 mg INHALE Q4H PRN PRN Reason: Wheezing Aspirin (Aspirin 81 Mg Tab.Chew) 81 mg PO DAILY [facility] Last Admin: 03/18/25 09:28 Dose: 81 mg Documented By: JEY Calcium Carbonate (Calcium Carbonate 750 Mg Tab.Chew) 750 mg PO Q4H PRN PRN Reason: Heartburn Enoxaparin Sodium (Enoxaparin Sodium 40 Mg/0.4 Ml Syringe) 40 mg SUBCUT Q24H [facility] Last Admin: 03/18/25 14:00 Dose: 40 mg Documented By: JEY Guaifenesin/Dextromethorphan (Guaifenesin Dm 100/10/5 Ml 5 Ml Syrup) 5 ml PO Q4H PRN PRN Reason: Cough Lactated Ringer's (Lr) 1,000 mls @ 100 mls/hr IVCONT .Q10H [facility] Last Admin: 03/19/25 08:40 Dose: 100 mls/hr Documented By: WIL Magnesium Hydroxide (Milk Of Magnesia 30 Ml Oral.Susp) 30 ml PO DAILY PRN PRN Reason: Constipation Melatonin (Melatonin 3 Mg Tablet) 6 mg PO BEDTIME PRN PRN Reason: Insomnia Oseltamivir Phosphate (Oseltamivir Phosphate 30 Mg Capsule) 30 mg PO BID [facility] Stop: 03/22/25 21:01 Last Admin: 03/18/25 20:11 Dose: 30 mg Documented By: DESTINEE Sodium Chloride (0.9 % Sodium Chloride Flush 3 Ml Syringe) 3 ml IVFLUSH QSHIFT [facility] Last Admin: 03/18/25 20:18 Dose: 3 ml Documented By: DESTINEE Vancomycin HCl (Vancomycin Hcl 125 Mg Capsule) 125 mg PO QID [facility] Last Admin: 03/18/25 20:11 Dose: 125 mg Documented By: DESTINEE Labs 03/17/25 06:03 03/18/25 08:35 Labs: Laboratory Results - last 24 hr 03/18/25 03/18/25 09:30 18:09 Urine Color Yellow Urine Appearance Clear Urine pH 5.5 Ur Specific [place] 1.015 Urine Protein Negative Urine Glucose (UA) Negative Urine Ketones Negative Urine Blood Small (1+) H Urine Nitrite Negative Ur Leukocyte Esterase Negative Urine RBC 11-20 H Urine WBC 0-5 Ur Squamous Epith Cells 0-2 Urine Bacteria None Seen Hyaline Casts 3-5 Urine Yeast Present Respiratory Panel [place] See Note Adenovirus (Rapid PCR) Not Detected B.pert (TEM-PCR) Not Detected B.parapertussis DNA PCR Not Detected C. pneumoniae DNA (PCR) Not Detected Coronavirus OC43 (PCR) Not Detected Coronavirus HKU1 (PCR) Not Detected Coronavirus 229E (PCR) Not Detected Coronavirus NL63 (PCR) Not Detected Human Metapneumovir PCR Not Detected Influenza A (RT-PCR) Detected A Influenza A (H1) PCR Not Detected Influ A (H1/09) PCR Detected A Influenza A (H3) PCR Not Detected Influenza B (RT-PCR) Not Detected M. pneumoniae (PCR) Not Detected Parainfluenza 1 (PCR) Not Detected Parainfluenza 2 (PCR) Not Detected Parainfluenza 3 (PCR) Not Detected Parainfluenza 4 (PCR) Not Detected RSV (PCR) Not Detected Entero/Rhino (PCR) Not Detected SARS-CoV-2 RNA (RT-PCR) Not Detected Microbiology Microbiology Results: Microbiology 03/17/25 17:37 Urine Culture - Preliminary Urine clean catch - Clean Catch Midstream No growth to date. 03/16/25 08:41 Blood Culture - Preliminary Blood - Venous No growth after 48 hours. 03/16/25 08:30 Blood Culture - Preliminary Blood - Venous No growth after 48 hours. 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 Resolved possible viral gastritis s/p IV fluids taking orals Hypokalemia. Resolved repleted celiac dz gluten free diet h/o esophageal stricture NDD3 diet as per previous admission h/o liver cirrhosis ?autoimmune/chronic thrombus of portal vein outpatient follow up with GI Chronic thrombocytopenia Due to above liver disease CAD asa dvt ppx - lovenox Full code Quality Stroke Does the patient have a stroke diagnosis?: No VTE Prior VTE?: No VTE Risk Level:: Medical - moderate - high VTE Device Contraindication: N/A - Device Ordered VTE Drug Contraindication: N/A - Med Ordered
[2025-03-19] MEDS: guaiFENesin DM 100/10/5 ML 5 ML SYRUP PO ×2 (09:18→16:58)
[2025-03-19] MEDS: 0.9 % Sodium Chloride Flush 3 ML SYRINGE IVFLUSH ×2 (14:19→20:34)
--- NOTE | 2025-03-19 15:06 | MHC.CM.PN ---
pt has flu is expected dc for wed to [facility]
--- NOTE | 2025-03-19 17:04 | PC.NURSE ---
Pt drowsy throughout the day but arousable. Denies pain. Assisted OOB to commode and recliner. Weak with activity. 2 mushy brown BM's on commode today. Voiding without difficulty. NPC- medicated with robitussin twice this shift
[2025-03-20 04:00] VITALS: BP 170/79; PULSE 83; RESP 17; TEMP 37.7; O2SAT 95
[2025-03-20] MEDS: Lactated Ringers 1,000 ML 100 ML IVCONT ×2 (05:16→16:17)
[2025-03-20 08:13] VITALS: PULSE 83; RESP 18; TEMP 38.3; O2SAT 93
[2025-03-20] MEDS: 0.9 % Sodium Chloride Flush 3 ML SYRINGE IVFLUSH ×3 (08:13→20:06)
[2025-03-20] MEDS: guaiFENesin DM 100/10/5 ML 5 ML SYRUP PO ×2 (08:13→12:45)
[2025-03-20 08:47] VITALS: BP 170/70
--- NOTE | 2025-03-20 09:12 | P.PNIM_ITS ---
Subjective Subjective Date of Service: 03/20/25 Review of Systems Follow up GUANACO has cdiff c/o cough, low grade temp Physical Exam 2 Exam: Exam: Appearing in no acute distress lung sounds are clear to auscultation heart regular rate rhythm, clear S1, S2 positive bowel sounds, abdomen is soft, nontender neuro patient is alert x3, no focal deficits Vital Signs: Vital Signs: Last Vital Signs Temp 100.9 F H 03/20/25 08:13 Pulse 83 03/20/25 08:13 Resp 18 03/20/25 08:13 BP 170/70 H 03/20/25 08:47 Pulse Ox 93 03/20/25 08:13 O2 Del Method Oxymask 03/20/25 08:13 O2 Flow Rate 2 03/20/25 08:13 BMI result Body Mass Index 32.7 Objective Data Active Medications Acetaminophen (Acetaminophen 325 Mg Tablet) 650 mg PO Q6H PRN PRN Reason: Pain, Mild 1-3,fever,headache Last Admin: 03/20/25 08:13 Dose: 650 mg Documented By: NICOLE Albuterol Sulfate (Albuterol Sulfate 90 Mcg 8 Gm Inhaler) 2 puff INHALE Q4H PRN PRN Reason: shortness of breath or wheezing Albuterol Sulfate (Albuterol Sulfate (0.083%) 2.5 Mg/3 Ml Vial.Neb) 2.5 mg INHALE Q4H PRN PRN Reason: Wheezing Aspirin (Aspirin 81 Mg Tab.Chew) 81 mg PO DAILY [facility] Last Admin: 03/20/25 08:12 Dose: 81 mg Documented By: NICOLE Calcium Carbonate (Calcium Carbonate 750 Mg Tab.Chew) 750 mg PO Q4H PRN PRN Reason: Heartburn Enoxaparin Sodium (Enoxaparin Sodium 40 Mg/0.4 Ml Syringe) 40 mg SUBCUT Q24H [facility] Last Admin: 03/19/25 12:55 Dose: 40 mg Documented By: NICOLE Guaifenesin/Dextromethorphan (Guaifenesin Dm 100/10/5 Ml 5 Ml Syrup) 5 ml PO Q4H PRN PRN Reason: Cough Last Admin: 03/20/25 08:13 Dose: 5 ml Documented By: NICOLE Lactated Ringer's (Lr) 1,000 mls @ 100 mls/hr IVCONT .Q10H [facility] Last Admin: 03/20/25 05:16 Dose: 100 mls/hr Documented By: LENIN Magnesium Hydroxide (Milk Of Magnesia 30 Ml Oral.Susp) 30 ml PO DAILY PRN PRN Reason: Constipation Melatonin (Melatonin 3 Mg Tablet) 6 mg PO BEDTIME PRN PRN Reason: Insomnia Oseltamivir Phosphate (Oseltamivir Phosphate 30 Mg Capsule) 30 mg PO BID [facility] Stop: 03/22/25 21:01 Last Admin: 03/20/25 08:13 Dose: 30 mg Documented By: NICOLE Sodium Chloride (0.9 % Sodium Chloride Flush 3 Ml Syringe) 3 ml IVFLUSH QSHIFT [facility] Last Admin: 03/20/25 08:13 Dose: 3 ml Documented By: NICOLE Vancomycin HCl (Vancomycin Hcl 125 Mg Capsule) 125 mg PO QID [facility] Last Admin: 03/20/25 08:13 Dose: 125 mg Documented By: NICOLE Labs 03/17/25 06:03 03/18/25 08:35 Microbiology Microbiology Results: Microbiology 03/17/25 17:37 Urine Culture - Final Urine clean catch - Clean Catch Midstream No growth. 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 Resolved possible viral gastritis s/p IV fluids taking orals Hypokalemia. Resolved repleted celiac dz gluten free diet h/o esophageal stricture NDD3 diet as per previous admission h/o liver cirrhosis ?autoimmune/chronic thrombus of portal vein outpatient follow up with GI Chronic thrombocytopenia Due to above liver disease CAD asa dvt ppx - lovenox Full code Quality Stroke Does the patient have a stroke diagnosis?: No VTE Prior VTE?: No VTE Risk Level:: Medical - moderate - high VTE Device Contraindication: N/A - Device Ordered VTE Drug Contraindication: N/A - Med Ordered
[2025-03-20 09:13] VITALS: TEMP 37.3
[2025-03-20 16:00] VITALS: BP 154/70; PULSE 70; RESP 18; TEMP 36.6; O2SAT 98
[2025-03-20 20:00] VITALS: BP 148/88; PULSE 80; RESP 18; TEMP 37.2; O2SAT 97
[2025-03-21] MEDS: Lactated Ringers 1,000 ML 100 ML IVCONT ×3 (01:30→22:17)
[2025-03-21 03:09] VITALS: BP 163/74; PULSE 86; RESP 16; TEMP 36.9; O2SAT 93
[2025-03-21 07:32] VITALS: BP 134/65; PULSE 80; RESP 14; TEMP 36.4; O2SAT 92
[2025-03-21 09:40] LABS: Anion Gap 10 (12-20); Blood Urea Nitrogen 11 mg/dL (9-16); Calcium 7.4 mg/dL (8.4-10.2); Carbon Dioxide 21 mmol/L (22-29); Chloride 106 mmol/L (96-108); Creatinine Clr Calc Pharmacy 62.0; Estimated Glomerular Filt Rate > 60; Potassium 3.9 mmol/L (3.3-5.1); Sodium 133 mmol/L (135-145)
[2025-03-21 10:30] LABS: Mean Corpuscular Hemoglobin 32.0 pg (27.0-33.0); NRBC Abs Auto 0.000 X10*3/uL (0.0-0.012); NRBC Pct Auto 0.0 /100WBC (0.0-0.2)
[2025-03-21 10:33] LABS: Hematocrit 34.6 % (37.0-47.0); Hemoglobin 11.4 g/dl (12.0-16.0); Mean Corpuscular HGB Conc 32.9 g/dl (31.0-35.0); Mean Corpuscular Volume 97.2 fL (80.0-98.0); PLT CLUMP 1; Red Blood Count 3.56 X10*6/uL (4.20-5.50); Reticulocytes Absolute 0.077 X10*6/uL (0.026-0.095)
[2025-03-21 10:42] VITALS: PULSE 100; O2SAT 93
[2025-03-21 10:45] LABS: Anion Gap 8 (12-20); Blood Urea Nitrogen 12 mg/dL (9-16); Calcium 7.4 mg/dL (8.4-10.2); Carbon Dioxide 22 mmol/L (22-29); Chloride 107 mmol/L (96-108); Creatinine Clr Calc Pharmacy 60.4; Estimated Glomerular Filt Rate > 60; Iron 15 mcg/dL (30-160); Percent Iron Saturation 13 % (15-50); Potassium 3.6 mmol/L (3.3-5.1); Sodium 133 mmol/L (135-145); Total Iron Binding Capacity 115 mcg/dL (228-428); Unsaturated Iron Binding 100 ug/dL
[2025-03-21 10:48] LABS: PLT ABN DIST 1
[2025-03-21 11:02] LABS: Ferritin 387 ng/mL (10-250)
[2025-03-21 11:33] LABS: Folate 4.0 ng/mL (> or = 4.0); Vitamin B12 745 pg/mL (200-900)
[2025-03-21 11:47] LABS: White Blood Count 5.2 X10*3/uL (4.8-10.8)
--- NOTE | 2025-03-21 14:00 | P.PNIM_ITS ---
Subjective Subjective Date of Service: 03/21/25 Interval History: fever resolved quite weak diarrhea improved coughing Review of Systems Review of Systems: Yes all other systems are reviewed and are negative Physical Exam 2 Vital Signs: Vital Signs: Last Vital Signs Temp 97.5 F 03/21/25 07:32 Pulse 100 03/21/25 10:42 Resp 14 03/21/25 07:32 BP 134/65 03/21/25 07:32 Pulse Ox 93 03/21/25 10:42 O2 Del Method Oxymask 03/21/25 07:32 O2 Flow Rate 2 03/21/25 07:32 BMI result Body Mass Index 32.7 Gen: pale, weak HEENT: sclera anicteric, moist mucus membranes Neck: supple Lungs: diminished Heart: regular rate and rhythm, no murmurs Abd: soft, non-tender, non-distended Ext: no edema Skin: warm/well-perfused Neuro: alert and oriented x3, no focal findings Psych: appropriate affect Objective Data Active Medications Acetaminophen (Acetaminophen 325 Mg Tablet) 650 mg PO Q6H PRN PRN Reason: Pain, Mild 1-3,fever,headache Last Admin: 03/20/25 08:13 Dose: 650 mg Documented By: NICOLE Albuterol Sulfate (Albuterol Sulfate 90 Mcg 8 Gm Inhaler) 2 puff INHALE Q4H PRN PRN Reason: shortness of breath or wheezing Albuterol Sulfate (Albuterol Sulfate (0.083%) 2.5 Mg/3 Ml Vial.Neb) 2.5 mg INHALE Q4H PRN PRN Reason: Wheezing Aspirin (Aspirin 81 Mg Tab.Chew) 81 mg PO DAILY [facility] Last Admin: 03/21/25 08:27 Dose: 81 mg Documented By: DERIK Calcium Carbonate (Calcium Carbonate 750 Mg Tab.Chew) 750 mg PO Q4H PRN PRN Reason: Heartburn Enoxaparin Sodium (Enoxaparin Sodium 40 Mg/0.4 Ml Syringe) 40 mg SUBCUT Q24H [facility] Last Admin: 03/21/25 12:30 Dose: 40 mg Documented By: DERIK Guaifenesin/Dextromethorphan (Guaifenesin Dm 100/10/5 Ml 5 Ml Syrup) 5 ml PO Q4H PRN PRN Reason: Cough Last Admin: 03/20/25 12:45 Dose: 5 ml Documented By: NICOLE Lactated Ringer's (Lr) 1,000 mls @ 100 mls/hr IVCONT .Q10H [facility] Last Admin: 03/21/25 12:31 Dose: 100 mls/hr Documented By: DERIK Magnesium Hydroxide (Milk Of Magnesia 30 Ml Oral.Susp) 30 ml PO DAILY PRN PRN Reason: Constipation Melatonin (Melatonin 3 Mg Tablet) 6 mg PO BEDTIME PRN PRN Reason: Insomnia Oseltamivir Phosphate (Oseltamivir Phosphate 30 Mg Capsule) 30 mg PO BID [facility] Stop: 03/22/25 21:01 Last Admin: 03/21/25 08:27 Dose: 30 mg Documented By: DERIK Sodium Chloride (0.9 % Sodium Chloride Flush 3 Ml Syringe) 3 ml IVFLUSH QSHIFT [facility] Last Admin: 03/21/25 13:55 Dose: Not Given Documented By: DERIK Non-Admin Reason: IV Running Vancomycin HCl (Vancomycin Hcl 125 Mg Capsule) 125 mg PO QID [facility] Last Admin: 03/21/25 12:29 Dose: 125 mg Documented By: DERIK Labs 03/21/25 09:39 03/21/25 09:39 Labs: Laboratory Results - last 24 hr 03/21/25 03/21/25 08:51 09:39 MCV 97.2 MCH 32.0 MCHC 32.9 RDW 14.1 Plt Count TNP MPV TNP Absolute Nucleated RBC 0.000 Nucleated RBC % (auto) 0.0 Absolute Retic 0.077 Percent Retic 2.2 H Immature Retic Fraction 12.1 Retic Hgb Equivalent 32.4 Anion Gap 10 L 8 L Estim Creat Clear Calc 62.0 60.4 Estimated GFR > 60 > 60 Random Glucose 69 76 Calcium 7.4 L 7.4 L Iron 15 L TIBC 115 L % Saturation 13 L Unsat Iron Binding 100 Ferritin 387 H Lactate Dehydrogenase 260 H C-Reactive Protein 4.08 H Vitamin B12 745 Folate 4.0 Microbiology Microbiology Results: Microbiology 03/16/25 08:41 Blood Culture - Final Blood - Venous No growth after 5 days. 03/16/25 08:30 Blood Culture - Final Blood - Venous No growth after 5 days. 03/19/25 08:02 Blood Culture - Preliminary Blood - Venous No growth after 48 hours. 03/19/25 08:02 Blood Culture - Preliminary Blood - Venous No growth after 48 hours. 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, nephrolithiasis, celiac disease, HLD, CAD s/p PCI x3, asthma, esophageal stricture, esophagitis, gastritis presenting with abd pain, vomiting, and diarrhea, thought to have Clostridium difficile infection and also developed influenza A viral sepsis due to influenza A - continue oseltamivir 03/18-03/22, droplet precautions Clostridium difficile infection - continue vancomycin 03/16-03/29, contact precautions hypoK - repleted celiac disease - gluten-free diet esophageal stricture - NDD3 diet liver cirrhosis/autoimmune hepatitis - follow up with GI as outpatient thrombocytopenia - partially due to platelet clumping normocytic anemia - mixed iron deficiency/chronic disease; replete Fe CAD - ASA VTE ppx: enoxaparin dispo: PT eval- STR recommended In my clinical judgment, the patient requires continued inpatient hospitalization for the following reasons: placement Total time managing care of this patient today: 40 minutes. Quality Stroke Does the patient have a stroke diagnosis?: No VTE Prior VTE?: No VTE Risk Level:: Medical - moderate - high VTE Device Contraindication: N/A - Device Ordered VTE Drug Contraindication: N/A - Med Ordered
--- NOTE | 2025-03-21 14:11 | MHC.CM.PN ---
pt accepted bed at [facility] they will be going for auth
[2025-03-21 15:03] LABS: Platelet Count (Citrate) 57 X10*3/uL (150-310)
[2025-03-21 15:35] VITALS: BP 134/62; PULSE 72; RESP 12; TEMP 37.7; O2SAT 92
[2025-03-21] MEDS: 0.9 % Sodium Chloride Flush 3 ML SYRINGE IVFLUSH (20:41)
[2025-03-21 23:50] VITALS: BP 154/71; PULSE 65; RESP 18; TEMP 36.5; O2SAT 95
[2025-03-22 07:02] VITALS: BP 142/75; PULSE 88; RESP 18; TEMP 37.1; O2SAT 90
[2025-03-22 07:57] VITALS: TEMP 38.1; O2SAT 91
[2025-03-22] MEDS: Ferrous Sulfate 324 MG TABLET.DR PO (08:03)
[2025-03-22 09:18] LABS: Platelet Count (Citrate) 36 X10*3/uL (150-310)
[2025-03-22 09:59] LABS: Hematocrit 34.6 % (37.0-47.0); Hemoglobin 11.5 g/dl (12.0-16.0); Mean Corpuscular HGB Conc 33.2 g/dl (31.0-35.0); Mean Corpuscular Hemoglobin 32.1 pg (27.0-33.0); Mean Corpuscular Volume 96.6 fL (80.0-98.0); NRBC Abs Auto 0.000 X10*3/uL (0.0-0.012); NRBC Pct Auto 0.0 /100WBC (0.0-0.2); PLT CLUMP 1; Red Blood Count 3.58 X10*6/uL (4.20-5.50)
[2025-03-22 10:01] LABS: White Blood Count 5.4 X10*3/uL (4.8-10.8)
[2025-03-22 10:28] VITALS: TEMP 37
[2025-03-22 10:41] LABS: Procalcitonin 0.15 ng/mL
--- NOTE | 2025-03-22 10:50 | HO.PM.IMPN ---
Subjective Subjective Date of Service: 03/22/25 Interval History: febrile to 100.9 yesterday, 100.5 this AM; coughing; diarrhea improved Review of Systems Review of Systems: Yes all other systems are reviewed and are negative Physical Exam Vital Signs: Vital Signs: Last Vital Signs Temp 98.6 F 03/22/25 10:28 Pulse 88 03/22/25 07:02 Resp 18 03/22/25 07:02 BP 142/75 H 03/22/25 07:02 Pulse Ox 91 L 03/22/25 07:57 O2 Del Method Room Air 03/22/25 07:57 O2 Flow Rate 2 03/21/25 07:32 BMI result Body Mass Index 32.7 Gen: pale, weak HEENT: sclera anicteric, moist mucus membranes Neck: supple Lungs: rhonchi on L, diminished air entry bilateral bases Heart: regular rate and rhythm, no murmurs Abd: soft, non-tender, non-distended Ext: no edema Skin: warm/well-perfused Neuro: alert and oriented x3, no focal findings Psych: appropriate affect Objective Data Active Medications Acetaminophen (Acetaminophen 325 Mg Tablet) 650 mg PO Q6H PRN PRN Reason: Pain, Mild 1-3,fever,headache Last Admin: 03/22/25 08:03 Dose: 650 mg Documented By: LADARIUS Albuterol Sulfate (Albuterol Sulfate 90 Mcg 8 Gm Inhaler) 2 puff INHALE Q4H PRN PRN Reason: shortness of breath or wheezing Albuterol Sulfate (Albuterol Sulfate (0.083%) 2.5 Mg/3 Ml Vial.Neb) 2.5 mg INHALE Q4H PRN PRN Reason: Wheezing Aspirin (Aspirin 81 Mg Tab.Chew) 81 mg PO DAILY [facility] Last Admin: 03/22/25 08:03 Dose: 81 mg Documented By: LADARIUS Calcium Carbonate (Calcium Carbonate 750 Mg Tab.Chew) 750 mg PO Q4H PRN PRN Reason: Heartburn Enoxaparin Sodium (Enoxaparin Sodium 40 Mg/0.4 Ml Syringe) 40 mg SUBCUT Q24H [facility] Last Admin: 03/21/25 12:30 Dose: 40 mg Documented By: DERIK Ferrous Sulfate (Ferrous Sulfate 324 Mg Tablet.) 324 mg PO DAILY [facility] Last Admin: 03/22/25 08:03 Dose: 324 mg Documented By: LADARIUS Guaifenesin/Dextromethorphan (Guaifenesin Dm 100/10/5 Ml 5 Ml Syrup) 5 ml PO Q4H PRN PRN Reason: Cough Last Admin: 03/20/25 12:45 Dose: 5 ml Documented By: NICOLE Magnesium Hydroxide (Milk Of Magnesia 30 Ml Oral.Susp) 30 ml PO DAILY PRN PRN Reason: Constipation Melatonin (Melatonin 3 Mg Tablet) 6 mg PO BEDTIME PRN PRN Reason: Insomnia Oseltamivir Phosphate (Oseltamivir Phosphate 30 Mg Capsule) 30 mg PO BID [facility] Stop: 03/22/25 21:01 Last Admin: 03/22/25 08:03 Dose: 30 mg Documented By: LADARIUS Sodium Chloride (0.9 % Sodium Chloride Flush 3 Ml Syringe) 3 ml IVFLUSH QSHIFT [facility] Last Admin: 03/22/25 07:47 Dose: Not Given Documented By: LADARIUS Non-Admin Reason: IV Running Vancomycin HCl (Vancomycin Hcl 125 Mg Capsule) 125 mg PO QID [facility] Last Admin: 03/22/25 08:03 Dose: 125 mg Documented By: LADARIUS Labs 03/22/25 09:25 03/21/25 09:39 Labs: Laboratory Results - last 24 hr 03/21/25 03/21/25 03/22/25 09:39 14:19 08:13 MCV MCH MCHC RDW Plt Count TNP MPV TNP Absolute Nucleated RBC Nucleated RBC % (auto) Plt Count ,Citrate 57 L D 36 L D Ferritin 387 H Vitamin B12 745 Folate 4.0 Procalcitonin 03/22/25 09:25 MCV 96.6 MCH 32.1 MCHC 33.2 RDW 14.0 Plt Count TNP MPV TNP Absolute Nucleated RBC 0.000 Nucleated RBC % (auto) 0.0 Plt Count ,Citrate Ferritin Vitamin B12 Folate Procalcitonin 0.15 Microbiology Microbiology Results: Microbiology 03/16/25 08:41 Blood Culture - Final Blood - Venous No growth after 5 days. 03/16/25 08:30 Blood Culture - Final Blood - Venous No growth after 5 days. 03/19/25 08:02 Blood Culture - Preliminary Blood - Venous No growth after 48 hours. 03/19/25 08:02 Blood Culture - Preliminary Blood - Venous No growth after 48 hours. 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, nephrolithiasis, celiac disease, HLD, CAD s/p PCI x3, asthma, esophageal stricture, esophagitis, gastritis presenting with abd pain, vomiting, and diarrhea, thought to have Clostridium difficile infection and also developed influenza A; persistently febrile and seems to have post-flu pneumonia post-flu pneumonia - will start ceftriaxone and doxycycline 03/22-03/27, follow BCx, trend PCT viral sepsis due to influenza A - continue oseltamivir 03/18-03/23, droplet precautions thrombocytopenia - likely due to baseline cirrhosis with superimposed infection as above; monitor counts; d/c enoxaparin Clostridium difficile infection - continue vancomycin 03/16-03/29, contact precautions hypoK - repleted celiac disease - gluten-free diet esophageal stricture - NDD3 diet liver cirrhosis/autoimmune hepatitis - follow up with GI as outpatient [has appt with Dr Cross 03/30] normocytic anemia - mixed iron deficiency/chronic disease; replete Fe CAD - ASA VTE ppx: SCDs dispo: PT eval- STR recommended In my clinical judgment, the patient requires continued inpatient hospitalization for the following reasons: IV antibiotics, persistent fever Total time managing care of this patient today: 40 minutes. Quality Stroke Does the patient have a stroke diagnosis?: No VTE Prior VTE?: No VTE Risk Level:: Medical - moderate - high VTE Device Contraindication: N/A - Device Ordered VTE Drug Contraindication: N/A - Med Ordered
[2025-03-22 16:24] VITALS: BP 166/77; PULSE 84; RESP 12; TEMP 37.9; O2SAT 92
[2025-03-22] MEDS: 0.9 % Sodium Chloride Flush 3 ML SYRINGE IVFLUSH ×2 (16:40→19:55)
[2025-03-22 17:30] VITALS: TEMP 37.8
[2025-03-22 23:48] VITALS: BP 154/73; PULSE 76; RESP 18; TEMP 37.7; O2SAT 92
[2025-03-23 06:27] LABS: Hematocrit 34.4 % (37.0-47.0); Hemoglobin 11.2 g/dl (12.0-16.0); Mean Corpuscular HGB Conc 32.6 g/dl (31.0-35.0); Mean Corpuscular Hemoglobin 31.2 pg (27.0-33.0); Mean Corpuscular Volume 95.8 fL (80.0-98.0); NRBC Abs Auto 0.000 X10*3/uL (0.0-0.012); NRBC Pct Auto 0.0 /100WBC (0.0-0.2); Red Blood Count 3.59 X10*6/uL (4.20-5.50); White Blood Count 5.0 X10*3/uL (4.8-10.8)
[2025-03-23 06:29] LABS: Anion Gap 10 (12-20); Blood Urea Nitrogen 11 mg/dL (9-16); Calcium 7.3 mg/dL (8.4-10.2); Carbon Dioxide 21 mmol/L (22-29); Chloride 108 mmol/L (96-108); Creatinine Clr Calc Pharmacy 60.4; Estimated Glomerular Filt Rate > 60; Potassium 3.6 mmol/L (3.3-5.1); Sodium 135 mmol/L (135-145)
[2025-03-23 06:34] LABS: NT Pro B Type Natriuretic Pept 1214.2 pg/mL (<300)
[2025-03-23 07:19] LABS: Platelet Count (Citrate) 39 X10*3/uL (150-310)
[2025-03-23 07:29] VITALS: BP 120/65; PULSE 86; RESP 14; TEMP 37.3; O2SAT 92
[2025-03-23] MEDS: Ferrous Sulfate 324 MG TABLET.DR PO (08:32)
[2025-03-23] MEDS: 0.9 % Sodium Chloride Flush 3 ML SYRINGE IVFLUSH ×3 (08:42→23:38)
--- NOTE | 2025-03-23 09:55 | HO.PM.IMPN ---
Subjective Subjective Date of Service: 03/23/25 Interval History: cough improving diarrhea improving BCx growing GPCs in clusters Review of Systems Review of Systems: Yes all other systems are reviewed and are negative Physical Exam Vital Signs: Vital Signs: Last Vital Signs Temp 99.1 F 03/23/25 07:29 Pulse 86 03/23/25 07:29 Resp 14 03/23/25 07:29 BP 120/65 03/23/25 07:29 Pulse Ox 92 03/23/25 07:29 O2 Del Method Room Air 03/23/25 07:29 O2 Flow Rate 2 03/21/25 07:32 BMI result Body Mass Index 32.7 Gen: NAD HEENT: sclera anicteric, moist mucus membranes Neck: supple Lungs: diminished air entry bilateral bases Heart: regular rate and rhythm, no murmurs Abd: soft, non-tender, non-distended Ext: no edema Skin: warm/well-perfused Neuro: alert and oriented x3, no focal findings Psych: appropriate affect Objective Data Active Medications Acetaminophen (Acetaminophen 325 Mg Tablet) 650 mg PO Q6H PRN PRN Reason: Pain, Mild 1-3,fever,headache Last Admin: 03/22/25 16:34 Dose: 650 mg Documented By: OSVALDO Albuterol Sulfate (Albuterol Sulfate 90 Mcg 8 Gm Inhaler) 2 puff INHALE Q4H PRN PRN Reason: shortness of breath or wheezing Albuterol Sulfate (Albuterol Sulfate (0.083%) 2.5 Mg/3 Ml Vial.Neb) 2.5 mg INHALE Q4H PRN PRN Reason: Wheezing Aspirin (Aspirin 81 Mg Tab.Chew) 81 mg PO DAILY [facility] Last Admin: 03/22/25 08:03 Dose: 81 mg Documented By: LADARIUS Calcium Carbonate (Calcium Carbonate 750 Mg Tab.Chew) 750 mg PO Q4H PRN PRN Reason: Heartburn Doxycycline Monohydrate (Doxycycline Monohydrate 100 Mg Capsule) 100 mg PO Q12H [facility] Last Admin: 03/22/25 22:12 Dose: 100 mg Documented By: DILEEP Ferrous Sulfate (Ferrous Sulfate 324 Mg Tablet.Dr) 324 mg PO DAILY [facility] Last Admin: 03/23/25 08:32 Dose: 324 mg Documented By: OSVALDO Guaifenesin/Dextromethorphan (Guaifenesin Dm 100/10/5 Ml 5 Ml Syrup) 5 ml PO Q4H PRN PRN Reason: Cough Last Admin: 03/20/25 12:45 Dose: 5 ml Documented By: NICOLE Ceftriaxone Sodium 2 gm/ (Sodium Chloride) 50 mls @ 100 mls/hr IV Q24H [facility] Last Admin: 03/23/25 08:32 Dose: 100 mls/hr Documented By: OSVALDO Magnesium Hydroxide (Milk Of Magnesia 30 Ml Oral.Susp) 30 ml PO DAILY PRN PRN Reason: Constipation Melatonin (Melatonin 3 Mg Tablet) 6 mg PO BEDTIME PRN PRN Reason: Insomnia Sodium Chloride (0.9 % Sodium Chloride Flush 3 Ml Syringe) 3 ml IVFLUSH QSHIFT [facility] Last Admin: 03/23/25 08:42 Dose: 3 ml Documented By: OSVALDO Vancomycin HCl (Vancomycin Hcl 125 Mg Capsule) 125 mg PO QID [facility] Last Admin: 03/23/25 08:32 Dose: 125 mg Documented By: OSVALDO Labs 03/23/25 05:34 03/23/25 05:34 Labs: Laboratory Results - last 24 hr 03/22/25 03/23/25 09:25 05:34 MCV 96.6 95.8 MCH 32.1 31.2 MCHC 33.2 32.6 RDW 14.0 13.9 Plt Count TNP TNP MPV TNP TNP Absolute Nucleated RBC 0.000 0.000 Nucleated RBC % (auto) 0.0 0.0 Plt Count ,Citrate 39 L Anion Gap 10 L Estim Creat Clear Calc 60.4 Estimated GFR > 60 Random Glucose 75 Calcium 7.3 L NT-Pro-B Natriuret Pep 1214.2 H Procalcitonin 0.15 Microbiology Microbiology Results: Microbiology 03/22/25 09:25 Blood Culture - Preliminary Blood - Venous Prelim: GPC Gram Stain only Assessment and Plan (1) Hypertension: Status: Acute Plan d78, 69yo F with vertigo, AIHA, 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, nephrolithiasis, celiac disease, HLD, CAD s/p PCI x3, asthma, esophageal stricture, esophagitis, gastritis presenting with abd pain, vomiting, and diarrhea, thought to have Clostridium difficile infection and also developed influenza A; persistently febrile and seems to have post-flu pneumonia post-influenza pneumonia with possible bacteremia: started ceftriaxone and doxycycline 03/22-03/27, follow BCx [PCR negative for MRSA + MSSA], trend PCT viral sepsis due to influenza A: completed oseltamivir 03/18-03/23, droplet precautions thrombocytopenia: likely due to baseline cirrhosis with superimposed infection as above; monitor counts; d/c'ed enoxaparin Clostridium difficile infection: continue vancomycin 03/16-03/29, contact precautions hypoK: repleted normocytic anemia: mixed iron deficiency/chronic disease; replete Fe celiac disease: gluten-free diet esophageal stricture: NDD3 diet liver cirrhosis/autoimmune hepatitis: follow up with GI as outpatient [has appt with Dr Cross 03/30] CAD: ASA VTE ppx: SCDs, no heparin due to severe thrombocytopenia dispo: PT eval- STR recommended In my clinical judgment, the patient requires continued inpatient hospitalization for the following reasons: IV antibiotics, possible bacteremia Total time managing care of this patient today: 40 minutes. Quality Stroke Does the patient have a stroke diagnosis?: No VTE Prior VTE?: No VTE Risk Level:: Medical - moderate - high VTE Device Contraindication: N/A - Device Ordered VTE Drug Contraindication: N/A - Med Ordered
[2025-03-23 11:51] VITALS: BP 120/65; PULSE 86; O2SAT 92
--- NOTE | 2025-03-23 14:45 | MHC.CM.PN ---
pper rounds pt may be ready for dc arlene mauricio has auth
[2025-03-23 15:25] VITALS: BP 130/63; PULSE 79; RESP 18; TEMP 36.6; O2SAT 93
[2025-03-24] VITALS: BP 151/69; PULSE 83; RESP 18; TEMP 36; O2SAT 93
[2025-03-24 06:29] LABS: Hematocrit 32.6 % (37.0-47.0); Hemoglobin 10.8 g/dl (12.0-16.0); Mean Corpuscular HGB Conc 33.1 g/dl (31.0-35.0); Mean Corpuscular Hemoglobin 31.8 pg (27.0-33.0); Mean Corpuscular Volume 95.9 fL (80.0-98.0); NRBC Abs Auto 0.000 X10*3/uL (0.0-0.012); NRBC Pct Auto 0.0 /100WBC (0.0-0.2); PLT CLUMP 1; Red Blood Count 3.40 X10*6/uL (4.20-5.50)
[2025-03-24 06:42] LABS: Anion Gap 8 (12-20); Blood Urea Nitrogen 10 mg/dL (9-16); Calcium 7.6 mg/dL (8.4-10.2); Carbon Dioxide 22 mmol/L (22-29); Chloride 111 mmol/L (96-108); Creatinine Clr Calc Pharmacy 62.0; Estimated Glomerular Filt Rate > 60; Potassium 3.4 mmol/L (3.3-5.1); Sodium 138 mmol/L (135-145)
[2025-03-24 06:44] LABS: Platelet Count (Citrate) 61 X10*3/uL (150-310)
[2025-03-24 06:54] LABS: White Blood Count 5.9 X10*3/uL (4.8-10.8)
[2025-03-24 06:55] LABS: Platelet Count 62 X10*3/uL (160-400)
[2025-03-24 06:58] LABS: Procalcitonin 0.08 ng/mL
[2025-03-24] MEDS: 0.9 % Sodium Chloride Flush 3 ML SYRINGE IVFLUSH ×2 (07:39→15:38)
[2025-03-24] MEDS: Ferrous Sulfate 324 MG TABLET.DR PO (07:40)
[2025-03-24 07:44] VITALS: BP 129/71; PULSE 71; RESP 20; TEMP 36.7; O2SAT 93
--- NOTE | 2025-03-24 07:57 | PM.DS ---
DS: Providers Provider Date of Service: 03/24/25 Date of admission: 03/16/25 12:09 Date of discharge: 03/24/25 Primary care physician: Unknown Physician DS: Diagnosis Discharge Diagnosis (1) Hypertension: Status: Acute (2) Clostridium difficile diarrhea: Status: Acute DS: Summary Hospital Course Hospital Course: 69 year old female with history of vertigo, autoimmune hemolytic anemia, auto immune hepatitis, nephrolithiasis, left renal stent, cirrhosis, celiac disease, HLD, NSTEMI, PCI X3, CAD, asthma, esophageal stricture, gastritis, esophagitis who presents to the ED with abdominal pain, vomiting and diarrhea. Patient reports 3 days of upper abdominal pain with associated nonbloody emesis and diarrhea. She reports multiple episodes of diarrhea daily. In the emergency department she was noted to have leukocytosis of 14.5, elevated lactic acid of 2.5. CT scan was obtained which showed chronic findings. Patient had multiple episodes of diarrhea in the emergency department and GI profile was obtained which was unremarkable, C diff PCR was positive. She was treated with IV antibiotics and 30 cc/kg bolus of IV fluid in the emergency department. Hospital Course Admitted to general medical floor and started on p.o. vancomycin. (03/16 through 03/2025). Also tested positive for influenza a and completed a course of oseltamivir (03/18 through 03/23/2025). Treated with empiric Ceftriaxone/doxycycline (03/22 through 03/27/2025).. DC secondary to negative blood cultures. Patient continued to improve and was seen by Physical therapy and deemed a candidate for acute rehab. At this time she is medically acceptable for transfer and will be transferred to SNF. Further plans as per receiving facility Time Attestation Discharge Coordination Time (in mins): 35 Quality: Safe Use of Opioids Does Pt have an Active Cancer Diagnosis on the Problem List?: No Quality: Stroke Does the patient have a stroke diagnosis?: No Physical Exam Vital Signs: Vital Signs: Last Vital Signs Temp 98.1 F 03/24/25 07:44 Pulse 71 03/24/25 07:44 Resp 20 03/24/25 07:44 BP 129/71 03/24/25 07:44 Pulse Ox 93 03/24/25 07:44 O2 Del Method Nasal Cannula 03/24/25 07:44 O2 Flow Rate 2 03/24/25 07:44 BMI result Body Mass Index 32.7 Const: Other: Awake alert no acute distress Resp: Other: Clear to auscultation bilaterally no rales rhonchi or wheezes Cardio: Other: No S4; positive S1-S2; no S3 murmurs rubs or gallops GI: Other: Soft nontender nondistended normoactive bowel sounds Extrem: Other: No edema bilaterally DS: Data Data Completed and Pending Labs on day of discharge: Laboratory Results - last 24 hr 03/24/25 03/24/25 05:45 05:46 WBC 5.9 RBC 3.40 L Hgb 10.8 L Hct 32.6 L MCV 95.9 MCH 31.8 MCHC 33.1 RDW 13.8 Plt Count 62 L D MPV 12.6 H Absolute Nucleated RBC 0.000 Nucleated RBC % (auto) 0.0 Plt Count ,Citrate 61 L D Sodium 138 Potassium 3.4 Chloride 111 H Carbon Dioxide 22 Anion Gap 8 L BUN 10 Creatinine 0.79 Estim Creat Clear Calc 62.0 Estimated GFR > 60 Random Glucose 91 Calcium 7.6 L Procalcitonin 0.08 Preliminary micro results at discharge 03/22/25 09:25 Blood Culture - Preliminary Blood - Venous Prelim: GPC Gram Stain only 03/19/25 08:02 Blood Culture - Preliminary Blood - Venous No growth after 48 hours. 03/19/25 08:02 Blood Culture - Preliminary Blood - Venous No growth after 48 hours. Discharge Plan Discharge Anticipated Discharge Date/Time: 03/24/25 14:21 Patient Disposition: [facility] Discharge Diagnosis: C diff colitis Referrals: Physician,Unknown J [Primary Care Provider, Medical] - 1 Week Discharge Medications: New vancomycin 125 mg Capsule 125 mg PO QID Qty: 20 0RF Continued albuterol sulfate 90 mcg/actuation HFA aerosol inhaler 2 puff inhalation Q4-6H PRN (Reason: shortness of breath or wheezing) Qty: 8.5 3RF aspirin 81 mg Tablet,Chewable 81 mg PO DAILY Discharge Orders: Discharge Order (Routine); Ordered 03/24/25 Ordered By: Sunny Navarro Diet: Advance to usual diet Activity on Discharge: As tolerated Stand Alone Forms: Patient Portal Discharge page Print Language: Mongolian Care Plan Goals: Complete all meds as listed on transfer sheet Health Concerns: Complete course of vancomycin as ordered Plan of Treatment: As per receiving facility Assessment: See discharge summary
--- NOTE | 2025-03-24 09:03 | MHC.CM.PN ---
Per MD, patient medically cleared for dc to [facility]. BLS transport scheduled for 3pm to [facility]. Patient, RN and MD aware. IMM delivered.
--- NOTE | 2025-03-24 10:52 | PC.NURSE ---
patient refused sequentials ,risks explained,encouraged leg excercises
--- NOTE | 2025-03-24 11:28 | PC.NURSE ---
patient verbally abusive ,swearing at RN,RN Melissa will take over patient care ,report given
[2025-03-24 15:53] VITALS: BP 147/69; PULSE 76; RESP 18; TEMP 36.3; O2SAT 2
== END 2025-03-24 17:13 | disposition skilled nursing facility (03) | DRG 871 ==
LOC: HO.ED 09:12 → HO.EDOVER 12:09 → HO.S3 13:33
PROVIDERS: Family Medicine; Internal Medicine; Nurse Practitioner Acute Care; Physician Assistant; Admitting Provider Physician Assistant Medical; Emergency Provider Emergency Medicine Emergency Medical Services; Visit Provider Hospitalist
DX: A41.89 Other specified sepsis (principal); I81 Portal vein thrombosis; J18.9 Pneumonia, unspecified organism; A04.72 Enterocolitis due to Clostridium difficile, not specified as recurrent; I25.10 Atherosclerotic heart disease of native coronary artery without angina pectoris; R65.20 Severe sepsis without septic shock; E87.6 Hypokalemia; J10.1 Influenza due to other identified influenza virus with other respiratory manifestations; K75.4 Autoimmune hepatitis; D63.8 Anemia in other chronic diseases classified elsewhere; K90.0 Celiac disease; K22.2 Esophageal obstruction; K74.69 Other cirrhosis of liver; D50.9 Iron deficiency anemia, unspecified; D69.59 Other secondary thrombocytopenia; Z20.822 Contact with and (suspected) exposure to COVID-19; Z95.5 Presence of coronary angioplasty implant and graft; Z79.82 Long term (current) use of aspirin; Z22.1 Carrier of other intestinal infectious diseases; Z79.899 Other long term (current) drug therapy
CPT/HCPCS: 36415; 71045; 71046; 74177; 80048; 80053; 81001; 82607; 82728; 82746; 83540; 83605; 83615; 83690; 83735; 83880; 84132; 84145; 85025; 85027; 85045; 86140; 87040; 87077; 87086; 87186; 87205; 87324; 87493; 87502; 87507; 87633; 87635; 97116; 97161; 97530; 99285; J0696; J1650; J2405; J2543; J3480; J7120; Q9967

== ENCOUNTER → 2025-03-16 07:23 | Outpatient (BNV) | payer MEDICARE, SELFPAY | PROVIDERS: Emergency Provider Emergency Medicine Emergency Medical Services; Visit Provider Radiology Diagnostic Radiology | DX: K74.60 Unspecified cirrhosis of liver (principal); K56.7 Ileus, unspecified; N26.1 Atrophy of kidney (terminal); N20.0 Calculus of kidney | CPT/HCPCS: 74177 ==

== ENCOUNTER 2025-03-16 12:09 | Outpatient (BNV) | payer MEDICARE, SELFPAY | END 2025-03-22 09:32 | PROVIDERS: Admitting Provider Physician Assistant Medical; Emergency Provider Emergency Medicine Emergency Medical Services; Visit Provider Radiology Diagnostic Radiology | DX: J90 Pleural effusion, not elsewhere classified (principal); J98.4 Other disorders of lung; R91.8 Other nonspecific abnormal finding of lung field; J98.09 Other diseases of bronchus, not elsewhere classified | CPT/HCPCS: 71046 ==

== ENCOUNTER 2025-03-16 12:09 | Outpatient (BNV) | payer MEDICARE, SELFPAY | END 2025-03-18 09:10 | PROVIDERS: Admitting Provider Physician Assistant Medical; Emergency Provider Emergency Medicine Emergency Medical Services; Visit Provider Radiology Diagnostic Radiology | DX: R05.9 Cough, unspecified (principal) | CPT/HCPCS: 71045 ==

== ENCOUNTER → 2025-03-16 12:09 | Outpatient (BNV) | payer MEDICARE, SELFPAY | PROVIDERS: Admitting Provider Physician Assistant Medical; Emergency Provider Emergency Medicine Emergency Medical Services; Visit Provider Nurse Practitioner Acute Care | DX: I10 Essential (primary) hypertension (principal) | CPT/HCPCS: 99232; 99499 ==

== ENCOUNTER 2025-04-02 10:44 | Outpatient (AMB) | payer MEDICARE, SELFPAY ==
--- NOTE | 2025-04-02 10:47 | A.OFFVIS_ITS ---
Vital Signs 04/02/25 10:48 Height 5 ft BMI Reason not done Patient refused/unable BP 135/64 Blood Pressure Location Lt brachial Position Sitting Pulse 92 Intake Visit Reasons: s/p egd Intake Note: Claudia presents to in office follow s/p EGD. CC: Patient states that she was admitted to the hospital with diarrhea and found out later that she had pneumonia. Pt was later d/c to [facility] [place] for rehab. Recycle Coordinator Required: No Accompanied by: Self / Same As Patient Allergies peach (PEACH) Allergy (Intermediate, Verified 04/02/25 10:55) DIFFICULTY BREATHING HPI HPI s/p egd: Details: 69 yr old f w hx of autoimmune hemolytic anemia here for f/u for cirrhosis RECAP She was told at [facility] she had cirrhosis, she was there for nstemi and had stents 08/2023 she had fatigue she has been told she has inflammed kidney from stone and following with DR Davison she had trouble swallowing, losing weight since heart attack but steady now--likes junk food neg cologuard 07/03 colonoscopy aged 51 and was nml labs: UA with large blood, CASA was v high, SMA was 63, IgG was high Hep B,C were negative Liver bx-- consistent with AIH IMAGING/Endo: Ba swallow: 03/02 ?stricture at throacic inlet small hernia gastritis EGD 11/01 gastritis esophagitis esophageal stricture no varices dilated to 11 mm with balloon She had food bolus obstruction and required EGD with Dr García INTERIM: she has poor dentition recovering from pneumonia and flu she is in rehab right now no trouble swallowing but avoiding hard foods due to dentition she will eventaully get dentures no diarrhea, no constipation no rectal bleeding saw cotton wringer for gluten free diet TPMT was low so I held off on imuran plus her LFT are pretty good GENERAL: The patient is frail and nontoxic. VITAL SIGNS:see workflow HEENT: Nonicteric sclerae, PERRLA, EOMI. Oropharynx clear. Moist mucous membranes. Conjunctivae appear well perfused. No thyroid mass. poor dentition CHEST: Chest wall is nontender. HEART: Regular rate and rhythm without murmurs. LUNGS: few coarse crackles on the left side ABDOMEN: Soft, positive bowel sounds, nontender, no organomegaly.no flank tenderness SKIN: No rash, no excessive bruising, petechiae, or purpura. NEUROLOGIC: Cranial nerves II-XII intact without motor/sensory deficit. 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-- Liver bx consistent with this 2/ dysphagia, stricture as above 3/ celiac disease PLAN: 1/ cont with gluten free diet, chew food thoroughly if can otherwise avoid hard consistency foods, and get dentures 2/ EGD with dilation--repeat due to stricture 3/ hold on imuran if needs suppression then maybe mycophenolate but hold off as LFT are decent [facility] Medical History Poor dentition Esophageal stricture Celiac disease Anemia Hematuria Left renal mass Staghorn calculus UTI (urinary tract infection) Hx of vertigo Proteinuria 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 Mother No problems noted. Social History Household Members: Family Household Members Other:: cousin and son Housing: House Are you a primary caretaker grounds to a significant other at home: No Do you presently have visiting nurse or other home services: No Alcohol intake: former Comment: pt high fall risk Patient Tobacco Use Status: Never used Tobacco e-Cigarette/Vaping Use: Never Used Second Hand Smoke Exposure: No service: No Current occupational status: employed Current occupation: [employer] Current occupational exposures/hazards: No Cognitive needs: No Hearing needs: No Vision needs: No Assessment & Plan Assessment & Plan (1) Esophageal obstruction: Code(s): K22.2 - Esophageal obstruction Category: Medical Plan: see above (2) Dysphagia: Code(s): R13.10 - Dysphagia, unspecified Category: Medical Plan: see above Coding Level of Care Code Est Pt Level 4 (65999) Diagnoses Esophageal obstruction K22.2 Dysphagia R13.10
[2025-04-02 10:48] VITALS: BP 135/64; PULSE 92
== END 2025-04-02 11:08 | disposition home or self-care (01) ==
LOC: HO.HGI 10:45
PROVIDERS: PCP Physician Assistant; Visit Provider Internal Medicine Gastroenterology
DX: K22.2 Esophageal obstruction (principal); R13.10 Dysphagia, unspecified
CPT/HCPCS: 99214

== ENCOUNTER → 2025-04-02 10:44 | Outpatient (BNVA) | payer MEDICARE, OTHER, SELFPAY | PROVIDERS: PCP Physician Assistant; Visit Provider Internal Medicine Gastroenterology | DX: K22.2 Esophageal obstruction (principal); R13.10 Dysphagia, unspecified | CPT/HCPCS: 99212 ==

== ENCOUNTER 2025-04-10 16:37 | Inpatient (IN) | payer MEDICARE, OTHER, SELFPAY ==
--- NOTE | 2025-04-10 | ECG_ITS ---
Test Reason : abdominal pain Blood Pressure : */* mmHG Vent. Rate : 89 BPM Atrial Rate : 89 BPM P-R Int : 192 ms QRS Dur : 128 ms QT Int : 404 ms P-R-T Axes : 33 3 7 degrees QTcB Int : 491 ms Normal sinus rhythm Right bundle branch block Abnormal ECG When compared with ECG of 07-Feb-2025 21:44, [place] interval has decreased Referred By: Generic ED Physician Electronically Signed By: BETH COLEY
--- NOTE | ~2025-04-10 | CT_ITS ---
CLINICAL HISTORY: abdominal pain, R O massive colitis. CT abdomen and pelvis with contrast Comparison: CT/REG/SR - CT ABDOMEN PELVIS WITH IV CONTRAST - 03/16/25 09:12 EST Findings: Bibasilar atelectatic/dependent changes. Status post cholecystectomy. Mild nodular contour of the liver. Moderate splenomegaly with spleen measuring 15 cm in AP dimension. Moderately atrophic right kidney measuring 7.4 cm in craniocaudal dimension. No hydronephrosis or nephrolithiasis. Remainder of the solid organs are within normal limits. Bowel loops are nondilated. Normal appendix within the right lower quadrant. Markedly dilated left ovarian vein measuring 2.7 cm in diameter. Extensive pelvic venous tortuosity. Moderately dilated mesenteric veins. Scattered diverticulosis of the sigmoid colon without evidence of acute diverticulitis. The bones are intact. Pelvic structures are otherwise grossly unremarkable. IMPRESSION: Nodular contour of the liver, splenomegaly, and prominent mesenteric veins, concerning for hepatic cirrhosis and portal hypertension. Markedly dilated left ovarian vein measuring 2.7 cm in diameter with extensive pelvic venous tortuosity consistent with pelvic congestion syndrome. Status post cholecystectomy. Moderately atrophic right kidney which measures 7 cm in craniocaudal dimension. Sigmoid diverticulosis without evidence of acute diverticulitis. This document has been electronically signed by: Georgina Atkins MD on 04/10/2025 19:53:51
[2025-04-10 16:57] VITALS: BP 160/67; PULSE 94; RESP 16; TEMP 36.7; O2SAT 98; BMI 30.6
[2025-04-10 17:28] LABS: MANUAL DIFF FLAG NO
[2025-04-10 17:35] LABS: Hematocrit 37.2 % (37.0-47.0); Hemoglobin 12.1 g/dl (12.0-16.0); Imm Gran Abs Auto 0.04 X10*3/uL (0.00-0.03); Imm Gran Pct Auto 0.5 % (0.0-0.4); Lymphocytes Absolute Auto 1.0 X10*3/uL (1.2-4.9); Mean Corpuscular HGB Conc 32.5 g/dl (31.0-35.0); Mean Corpuscular Hemoglobin 31.8 pg (27.0-33.0); Mean Corpuscular Volume 97.6 fL (80.0-98.0); NRBC Abs Auto 0.000 X10*3/uL (0.0-0.012); NRBC Pct Auto 0.0 /100WBC (0.0-0.2); Platelet Count 160 X10*3/uL (160-400); Red Blood Count 3.81 X10*6/uL (4.20-5.50); White Blood Count 8.1 X10*3/uL (4.8-10.8)
[2025-04-10 17:43] LABS: COVID-19 Test Negative (Negative); IDNOW Serial# 58CA691E
[2025-04-10 17:45] LABS: Alanine Aminotransferase 16 U/L (0-31); Albumin Level 3.0 g/dL (3.5-5.0); Alkaline Phosphatase 99 U/L (39-117); Anion Gap 13 (12-20); Aspartate Amino Transferase 52 U/L (5-31); Blood Urea Nitrogen 26 mg/dL (9-16); Calcium 8.7 mg/dL (8.4-10.2); Carbon Dioxide 19 mmol/L (22-29); Chloride 113 mmol/L (96-108); Creatinine Clr Calc Pharmacy 40.8; Estimated Glomerular Filt Rate 46; Lipase 26 U/L (8-78); Potassium 4.5 mmol/L (3.3-5.1); Sodium 140 mmol/L (135-145); Total Protein 8.6 g/dL (6.5-8.0)
[2025-04-10 17:45] LABS: IDNOW Serial# 55D5AD1C; Influenza B2 Negative (Negative)
--- OUTSIDE RECORDS SUMMARY | 2025-04-10 17:53 | XMS_ITS | Clinical Summary ---
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 Name Role Phone Ania Browning MD Primary Care Provider Surgical History Surgery Date Site/Laterality Comments CARPAL TUNNEL RELEASE 07/26/2008 PROCEDURE: TX NEUROPLASTY &/TRANSPOS MEDIAN NRV CARPAL TUNNE CYSTOSCOPY 10/26/2011 PROCEDURE: TX CYSTOURETHROSCOPY; COMMENT: Dr Sunny Miranda CYSTOSCOPY 03/31/2016 Left PROCEDURE: TX CYSTOURETHROSCOPY; COMMENT: ureteroscopy, laser lithotripsy, stent placement COLONOSCOPY 08/2008 PROCEDURE: HISTORICAL COLONOSCOPY OTHER SURGICAL HISTORY 09/11/2020 PROCEDURE: TX PRQ TRLUML CORONARY STENT W/ANGIO ONE ART/BRNCH [...] Documents on File Type Date Recorded Patient Jail Guard Expl anation Health Care Decision (hx) 03/31/2016 AD CARROLL DIRECTIVE Health Care Decision (hx) 03/31/2016 AD CARROLL DIRECTIVE Health Care Decision (hx) 03/31/2016 AD CARROLL DIRECTIVE Health Care Decision (hx) 03/31/2016 AD CARROLL DIRECTIVE Health Care Decision (hx) 03/31/2016 AD CARROLL DIRECTIVE Care Teams 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
--- NOTE | 2025-04-10 18:27 | ED_ITS ---
HPI - General Adult General Chief complaint: Abdominal Pain Stated complaint: n/v x 1 day & ab pain Time Seen by Provider: 04/10/25 17:56 Source: patient, EMS and old records reviewed Mode of arrival: EMS Limitations: no limitations History of Present Illness ED Provider: DR. Zamarripa HPI narrative: 69-year-old female with history of vertigo, autoimmune hemolytic anemia, autoimmune hepatitis, kidney stones, liver cirrhosis, celiac disease, HLD, NSTEMI s/p PCI x3, CAD, who was recently discharged from the hospital on 03/24 to rehab after treatment of C diff with vancomycin orally ( 5 doses left with the patient), patient started to have another bout of nausea, vomiting, and nonbloody watery diarrhea today. Related Data Home Medications ?Medication ?Instructions ?Recorded ?Confirmed aspirin 81 mg chewable tablet 81 mg PO DAILY 02/08/25 03/16/25 Previous Rx's ?Medication ?Instructions ?Recorded albuterol sulfate 90 mcg/actuation 2 puff inhalation Q 4-6H PRN 05/18/23 aerosol inhaler shortness of breath or wheez ing #8.5 grams vancomycin 125 mg capsule 125 mg PO QID #20 caps 03/24 Allergies Allergy/AdvReac Type Severity Reaction Status Date / Time peach (PEACH) Allergy Intermediate DIFFICULTY Verified 04/10/25 17:00 BREATHING Review of Systems 2 Review of Systems: All other systems are reviewed and are negative Constitutional: Reports as per HPI and Reports no additional constitutional complaints Eyes: Reports as per HPI and Reports no additional eye complaints Reports system reviewed and no additional complaints, except as documented Cardiovascular: Reports as per HPI and Reports no additional cardiovascular complaints Respiratory: Reports as per HPI and Reports no additional respiratory complaints Gastrointestinal: Reports as per HPI and Reports no additional gastrointestinal complaints Genitourinary: Reports no additional female genitourinary complaints Musculoskeletal: Reports no additional musculoskeletal complaints Skin/Breast: Reports system reviewed and no additional complaints, except as docu Psychiatric: Reports no additional psychiatric complaints Endocrine: Reports no additional endocrine complaints Hematologic/Lymphatic: Reports no additional hematologic/lymphatic complaints Allergic/Immunologic: Reports no additional allergic/immunologic complaints Reports system reviewed and no additional complaints, except as documented and Reports Abnormal speech present [facility] Past Medical History Medical History Portal vein thrombosis Ileus Hypertension Poor dentition Esophageal stricture Celiac disease Anemia Hematuria Left renal mass Staghorn calculus UTI (urinary tract infection) Hx of vertigo Proteinuria 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 Mother No problems noted. Social History Social History Household Members: Family Household Members Other:: cousin and son Housing: House Are you a primary care transition coordinator to a significant other at home: No Do you presently have visiting nurse or other home services: No Alcohol intake: former Comment: pt high fall risk Patient Tobacco Use Status: Never used Tobacco e-Cigarette/Vaping Use: Never Used Second Hand Smoke Exposure: No Advance Directives: No Advance Directives Information Provided: No service: No Current occupational status: employed Current occupation: [employer] Current occupational exposures/hazards: No Cognitive needs: No Hearing needs: No Vision needs: No Physical Exam ED Vital Signs: Vital Signs - 24 hr 04/10/25 16:57 04/10/25 18:42 Temperature 98.1 F 98.3 F Pulse Rate 94 89 Respiratory Rate 16 16 Blood Pressure 160/67 H 118/57 L Pulse Oximetry 98 98 Oxygen Delivery Method Room Air Room Air BMI result Body Mass Index 30.6 Vital signs have been reviewed and appear to be correct. Blood pressure elevated. Heart rate normal. Respiratory rate normal. Temperature normal. Oxygen saturation normal. Appearance: Alert. Oriented X3. No acute distress. Head: Normal external exam. Normocephalic. Atraumatic. No Norman signs noted. No raccoon eyes noted Eyes: PERRLA. EOMI. Conjunctiva and sclera normal. Eyelids normal. ENT: TM's Normal. Pharynx normal. Uvula midline. Moist mucous membranes. No trismus noted. No drooling noted. No muffled voice noted. Neck: Normal inspection. Neck supple. FROM. No adenopathy. Thyroid Normal. No meningeal signs. No neck mass noted. CVS: Normal heart rate and rhythm. Heart sound normal. No murmurs noted. Pulses normal throughout. Respiratory: No respiratory distress. Painless inspiration. Breath sounds normal. No wheezes/rales/rhonchi noted. Chest nontender. No accessory muscle usage noted or decreased air movement noted. Abdomen: Soft and nontender. Bowel sounds normal in all 4 quadrants. No distention noted. No organomegaly noted. No visible injury noted. Back: No CVA tenderness. Full range of motion noted. Skin: Skin warm and dry. Normal skin color. Normal skin turgor. No rashes/lesions/lacerations noted. Extremities: No lower extremity edema. Extremities exhibit normal range of motion. Extremities nontender. Neuro: Oriented X 3. Cranial nerve exam: II-XII are grossly intact No motor deficit. No sensory deficit. Reflexes normal. Course Reevaluation(s) Reevaluation #1: receiving treatment for C-diff, unable to tolerate p.o. intake, will admit for IV hydration and IV antiemetic medication. Time: 20:05 Medications Administered Discontinued Medications Generic Name Dose Route Start Last Admin Trade Name Freq PRN Reason Stop Dose Admin Al Hydroxide/Mg Hydroxide 30 ml 04/10/25 18:18 04/10/25 18:29 Magnesium Hydrox/Alum Hydrox 30 Ml Oral.Susp PO 04/10/25 18:19 30 ml ONCE ONE Administration Lactated Ringer's 1,000 mls @ 999 mls/hr 04/10/25 18:30 04/10/25 18:34 Lr IV 04/10/25 19:30 999 mls/hr .Q1H1M PATRICIA Administration Iohexol 100 ml 04/10/25 19:02 04/10/25 19:02 Iohexol 350 Mg/Ml 100 Ml Infus..Btl IV 04/10/25 19:03 85 ml ONCE ONE Administration Ondansetron HCl 4 mg 04/10/25 18:18 04/10/25 18:29 Ondansetron Hcl 4 Mg/2 Ml Vial IVPUSH 04/10/25 18:19 4 mg ONCE ONE Administration Sucralfate 1 gm 04/10/25 18:18 04/10/25 18:29 Sucralfate Oral Suspension 1 Gm/10 Ml Oral.Susp PO 04/10/25 18:19 1 gm ONCE ONE Administration Medical Decision Making Differential Diagnosis Differential Diagnoses: The differential diagnosis associated with the presentation includes ( Colitis, diverticulitis, pancreatitis, electrolyte derangement, severe anemia, gastritis, gastroenteritis, food poisoning, persistent of C diff.) Admission/Observation Consideration of admission/observation: Escalation of care including admission/observation considered Consult Healthcare Provider Management of the patient was discussed with: Hospitalist ( Dr. Otoole) Lab Data MDM Lab Attestation statement: I reviewed the patient's lab results. 04/10/25 17:19 04/10/25 17:19 Labs: Lab Results 04/10/25 04/10/25 04/10/25 Range/Units 17:19 17:20 17:22 WBC 8.1 (4.8-10.8) X10*3/uL RBC 3.81 L (4.20-5.50) X10*6/uL Hgb 12.1 (12.0-16.0) g/dl Hct 37.2 (37.0-47.0) % MCV 97.6 (80.0-98.0) fL MCH 31.8 (27.0-33.0) pg MCHC 32.5 (31.0-35.0) g/dl RDW 14.8 (11.0-16.0) % Plt Count 160 D (160-400) X10*3/uL MPV 11.0 (9.4-12.3) fL Immature Gran % (Auto) 0.5 H (0.0-0.4) % Neut % (Auto) 73.3 H (45-73) % Lymph % (Auto) 12.9 L (20-40) % Crenshaw % (Auto) 7.2 (2-11) % Eos % (Auto) 5.7 H (0-4) % Baso % (Auto) 0.4 (0-2) % Lymph # (Auto) 1.0 L (1.2-4.9) X10*3/uL Crenshaw # (Auto) 0.6 (0.1-1.2) X10*3/uL Eos # (Auto) 0.5 H (0.0-0.4) X10*3/uL Baso # (Auto) 0.0 (0.0-0.2) X10*3/uL Abs Immat Gran (auto) 0.04 H (0.00-0.03) X10*3/uL Absolute Neuts (auto) 5.9 (2.0-8.3) x10*3/uL Absolute Nucleated RBC 0.000 (0.0-0.012) X10*3/uL Nucleated RBC % (auto) 0.0 (0.0-0.2) /100WBC Hold Purple Top SEE NOTE Hold Blue Top SEE NOTE Sodium 140 (135-145) mmol/L Potassium 4.5 D (3.3-5.1) mmol/L Chloride 113 H (96-108) mmol/L Carbon Dioxide 19 L (22-29) mmol/L Anion Gap 13 (12-20) BUN 26 H (9-16) mg/dL Creatinine 1.16 (0.5-1.4) mg/dL Estim Creat Clear Calc 40.8 Estimated GFR 46 Random Glucose 125 H (60-115) mg/dL Lactic Acid 2.4 H* (0.5-2.0) mmol/L Calcium 8.7 D (8.4-10.2) mg/dL Total Bilirubin 0.9 (0.0-1.0) mg/dL AST 52 H (5-31) U/L ALT 16 (0-31) U/L Alkaline Phosphatase 99 (39-117) U/L Total Protein 8.6 H (6.5-8.0) g/dL Albumin 3.0 L (3.5-5.0) g/dL Lipase 26 (8-78) U/L COVID-19 ([facility]) Negative (Negative) COVID-19 Clin Com See Note Influenza Type A ([facility]) Negative (Negative) Influenza Type B ([facility]) Negative (Negative) Influenza A & B Note See Note Independent Interpretation I performed an independent interpretation of an: CT Scan ( abdomen pelvis:Nodular contour of the liver, splenomegaly, and prominent mesenteric veins, concerning for hepatic cirrhosis and portal hypertension. Markedly dilated left ovarian vein measuring 2.7 cm in diameter with extensive pelvic venous tortuosity consistent with pelvic congestion syndrome.) Radiology Impression Discussion of test interpretation with radiology: I have reviewed the radiologist's reading. Discharge Plan Discharge Clinical Impression: Intractable vomiting Patient Disposition: Admitted As Inpatient Print Language: Malian
[2025-04-10] MEDS: Sucralfate Oral Suspension 1 GM/10 ML ORAL.SUSP PO (18:29)
[2025-04-10] MEDS: Magnesium Hydrox/Alum Hydrox 30 ML ORAL.SUSP PO (18:29)
[2025-04-10] MEDS: Lactated Ringers 1,000 ML 999 ML IV (18:34)
[2025-04-10 18:42] VITALS: BP 118/57; PULSE 89; RESP 16; TEMP 36.8; O2SAT 98
[2025-04-10] MEDS: iohexoL 350 MG/ML 100 ML INFUS..BTL IV (19:02)
[2025-04-10 20:15] VITALS: BP 114/66; PULSE 94; RESP 16; TEMP 36.6; O2SAT 95
[2025-04-10 20:52] LABS: Reflex Lactate? Lactic Acid Added
[2025-04-10] MEDS: Dextrose 5 % and 0.45 % NaCl 1,000 ML 100 ML IVCONT (21:24)
[2025-04-10 21:26] LABS: ~Lactic Acid-LAB USE ONLY 1.4 mmol/L (0.5-2.0)
--- NOTE | 2025-04-10 21:46 | PHA.MEDREC ---
Pharmacy Consult ? Medication Reconciliation Pharmacy has completed the medication reconciliation. Spoke to patient to confirm medication list. Per patient, she is only on 2 medications right now, aspirin 81 mg chewable daily and vancomycin 125 mg qid. Last dose of medications was today 04/10/25.
[2025-04-11 01:19] VITALS: BP 118/49; PULSE 85; RESP 16; TEMP 37; O2SAT 94
--- NOTE | 2025-04-11 02:21 | P.HPHOSP_ITS ---
History of Present Illness Date of Service: 04/11/25 Chief Complaint: Diarrhea 69-year-old female with a past medical history of recurrent UTI, history of esophageal obstruction/stricture, celiac disease, autoimmune hepatitis, history of staghorn calculus, chronic low back pain, renal mass, prediabetes, anemia, nephrolithiasis, CAD; recent admission to the hospital for C diff; presented to the hospital today with a chief complaint of nausea/vomiting/diarrhea. Patient mentioned that she was just discharged from the rehab about a day ago after she went home she was initially okay and her diarrhea has been improving and she is still on the p.o. vancomycin course for her C diff. But prior to coming to the hospital she had few episodes of loose stools. Denies any blood in the stool. Denies any abdominal discomfort. Has had nausea and vomiting. Hence came to the ER for further evaluation. Patient denies any fevers. Denies any chest pain or palpitations. Denies any urinary symptoms. Review of all other systems is negative except mentioned above ER course: Per ER team, patient abdominal exam was benign; CT abdomen pelvis showed no acute findings; patient was nauseous; given antinausea medications; patient failed p.o. challenge. 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 Mother No problems noted. Surgical History History of liver biopsy History of esophagogastroduodenoscopy (EGD) Hx of bilateral cataract extraction Hx of heart artery stent Hx of lithotripsy S/P cardiac catheterization Hx laparoscopic cholecystectomy History of carpal tunnel release H/O colonoscopy Hx of cystoscopy Social History Household Members: Family Household Members Other:: cousin and son Housing: House Are you a primary plant care worker to a significant other at home: No Do you presently have visiting nurse or other home services: No Alcohol intake: former Comment: pt high fall risk Patient Tobacco Use Status: Never used Tobacco e-Cigarette/Vaping Use: Never Used Second Hand Smoke Exposure: No Advance Directives: No Advance Directives Information Provided: No service: No Current occupational status: employed Current occupation: [employer] Current occupational exposures/hazards: No Cognitive needs: No Hearing needs: No Vision needs: No Meds Allergies Allergy/AdvReac Type Severity Reaction Status Date / Time peach (PEACH) Allergy Intermediate DIFFICULTY Verified 04/10/25 17:00 BREATHING Active Medications: Current Medications Acetaminophen (Acetaminophen 325 Mg Tablet) 650 mg PO Q6H PRN PRN Reason: Pain, Mild 1-3,fever,headache Calcium Carbonate (Calcium Carbonate 750 Mg Tab.Chew) 750 mg PO Q4H PRN PRN Reason: Heartburn Heparin Sodium (Porcine) (Heparin Sodium,Porcine 5,000 Unit/Ml Vial) 5,000 unit SUBCUT Q8H REPLACED BY [facility] Last Admin: 04/10/25 21:25 Dose: 5,000 unit Dextrose/Sodium Chloride (D51/2ns) 1,000 mls @ 100 mls/hr IVCONT .Q10H REPLACED BY [facility] Last Admin: 04/10/25 21:24 Dose: 100 mls/hr Magnesium Hydroxide (Milk Of Magnesia 30 Ml Oral.Susp) 30 ml PO DAILY PRN PRN Reason: Constipation Melatonin (Melatonin 3 Mg Tablet) 6 mg PO BEDTIME PRN PRN Reason: Insomnia Sodium Chloride (0.9 % Sodium Chloride Flush 3 Ml Syringe) 3 ml IVFLUSH QSHIFT REPLACED BY [facility] Last Admin: 04/11/25 01:05 Dose: Not Given Home Medications ?Medication ?Instructions ?Recorded ?Confirmed ?Last Taken ?Type aspirin 81 mg chewable tablet 81 mg PO DAILY 02/08/25 04/10/25 04/10/25 History Physical Exam 2 Vital Signs and Narrative: Vital Signs: Last Vital Signs Temp 98.6 F 04/11/25 01:19 Pulse 85 04/11/25 01:19 Resp 16 04/11/25 01:19 BP 118/49 L 04/11/25 01:19 Pulse Ox 94 04/11/25 01:19 O2 Del Method Room Air 04/11/25 01:19 BMI result Body Mass Index 30.6 Gen: Appears be in no acute distress HEENT: NCAT, Moist mucosa. Pulmonary: Vesicular breath sounds, fair air entry CVS: Normal S1-S2 Abdomen: BS+, Soft, Nontender Extremities: Warm well perfused Neuro: Alert and awake. Results Labs 04/10/25 17:19 04/10/25 17:19 Labs: Laboratory Results - last 24 hr 04/10/25 04/10/25 04/10/25 17:19 17:20 17:22 MCV 97.6 MCH 31.8 MCHC 32.5 RDW 14.8 Plt Count 160 D MPV 11.0 Immature Gran % (Auto) 0.5 H Neut % (Auto) 73.3 H Lymph % (Auto) 12.9 L [place] % (Auto) 7.2 Eos % (Auto) 5.7 H Baso % (Auto) 0.4 Lymph # (Auto) 1.0 L [place] # (Auto) 0.6 Eos # (Auto) 0.5 H Baso # (Auto) 0.0 Abs Immat Gran (auto) 0.04 H Absolute Neuts (auto) 5.9 Absolute Nucleated RBC 0.000 Nucleated RBC % (auto) 0.0 Hold Purple Top SEE NOTE Hold Blue Top SEE NOTE Anion Gap 13 Estim Creat Clear Calc 40.8 Estimated GFR 46 Random Glucose 125 H Lactic Acid 2.4 H* Lactic Acid F/U @ 2Hr Calcium 8.7 D Total Bilirubin 0.9 AST 52 H ALT 16 Alkaline Phosphatase 99 Total Protein 8.6 H Albumin 3.0 L Lipase 26 COVID-19 ([facility]) Negative COVID-19 Clin Com See Note Influenza Type A ([facility]) Negative Influenza Type B ([facility]) Negative Influenza A & B Note See Note 04/10/25 21:02 MCV MCH MCHC RDW Plt Count MPV Immature Gran % (Auto) Neut % (Auto) Lymph % (Auto) [place] % (Auto) Eos % (Auto) Baso % (Auto) Lymph # (Auto) [place] # (Auto) Eos # (Auto) Baso # (Auto) Abs Immat Gran (auto) Absolute Neuts (auto) Absolute Nucleated RBC Nucleated RBC % (auto) Hold Purple Top Hold Blue Top Anion Gap Estim Creat Clear Calc Estimated GFR Random Glucose Lactic Acid Lactic Acid F/U @ 2Hr 1.4 Calcium Total Bilirubin AST ALT Alkaline Phosphatase Total Protein Albumin Lipase COVID-19 ([facility]) COVID-19 Clin Com Influenza Type A ([facility]) Influenza Type B ([facility]) Influenza A & B Note Assessment and Plan (1) Diarrhea: Qualifiers: Diarrhea type: unspecified type Qualified Code(s): R19.7 - Diarrhea, unspecified Status: Acute Plan 69-year-old female with a past medical history of recurrent UTI, history of esophageal obstruction/stricture, celiac disease, autoimmune hepatitis, history of staghorn calculus, chronic low back pain, renal mass, prediabetes, anemia, nephrolithiasis, CAD; recent admission to the hospital for C diff; presented to the hospital today with a chief complaint of nausea/vomiting/diarrhea. Nausea/vomiting/diarrhea: Recent C diff: Patient has multiple episodes of loose diarrhea after she came back from rehab yesterday. Benign abdominal examination CT abdomen pelvis showed acute findings Continue p.o. vancomycin-5 more doses left per patient ID consult Supportive care Advanced diet as tolerated DVT prophylaxis: Subcu heparin Code status: Full code Quality Stroke Does the patient have a stroke diagnosis?: No VTE Prior VTE?: No VTE Risk Level:: Medical - moderate - high VTE Device Contraindication: Treatment Not Indicated VTE Drug Contraindication: N/A - Med Ordered
[2025-04-11 04:00] VITALS: BP 118/49; PULSE 85; RESP 16; TEMP 37; O2SAT 94
[2025-04-11 04:27] LABS: MANUAL DIFF FLAG NO
[2025-04-11 04:30] LABS: Hematocrit 31.4 % (37.0-47.0); Hemoglobin 9.9 g/dl (12.0-16.0); Imm Gran Abs Auto 0.03 X10*3/uL (0.00-0.03); Imm Gran Pct Auto 0.4 % (0.0-0.4); Lymphocytes Absolute Auto 1.7 X10*3/uL (1.2-4.9); Mean Corpuscular HGB Conc 31.5 g/dl (31.0-35.0); Mean Corpuscular Hemoglobin 31.3 pg (27.0-33.0); Mean Corpuscular Volume 99.4 fL (80.0-98.0); NRBC Abs Auto 0.000 X10*3/uL (0.0-0.012); NRBC Pct Auto 0.0 /100WBC (0.0-0.2); Red Blood Count 3.16 X10*6/uL (4.20-5.50); White Blood Count 6.9 X10*3/uL (4.8-10.8)
[2025-04-11 04:46] LABS: Alanine Aminotransferase 11 U/L (0-31); Albumin Level 2.5 g/dL (3.5-5.0); Alkaline Phosphatase 79 U/L (39-117); Anion Gap 8 (12-20); Aspartate Amino Transferase 40 U/L (5-31); Blood Urea Nitrogen 24 mg/dL (9-16); Calcium 8.2 mg/dL (8.4-10.2); Carbon Dioxide 22 mmol/L (22-29); Chloride 114 mmol/L (96-108); Creatinine Clr Calc Pharmacy 38.8; Estimated Glomerular Filt Rate 44; Potassium 4.7 mmol/L (3.3-5.1); Sodium 139 mmol/L (135-145); Total Protein 6.9 g/dL (6.5-8.0)
[2025-04-11 05:04] LABS: Platelet Count 93 X10*3/uL (160-400)
[2025-04-11] MEDS: Dextrose 5 % and 0.45 % NaCl 1,000 ML 100 ML IVCONT ×2 (07:59→21:34)
[2025-04-11 08:58] LABS: Appearance Urine Cloudy; Glucose Urine UA Negative (Negative); PH 5.0 (5.0-9.0); Specific Gravity - Urine >= 1.030 (1.005-1.025); UMIC TRIGGER UACC YES
[2025-04-11 09:13] LABS: UACC Culture Trigger YES
[2025-04-11 10:17] VITALS: BP 109/53; PULSE 80; RESP 20; TEMP 36.4; O2SAT 98
--- NOTE | 2025-04-11 14:11 | HO.PM.IMPN ---
Subjective Subjective Date of Service: 04/11/25 Interval History: diarrhea Physical Exam Exam: Exam: General: AO X 3, ill appearing Resp: CTA bilateral, no accessory muscles used CVS: S1,S2,RRR GI: soft, non tender, non distended Neuro: motor grossly intact, alert Psych: appropriate affect, appropriate insight Vital Signs: Vital Signs: Last Vital Signs Temp 97.6 F 04/11/25 10:17 Pulse 80 04/11/25 10:17 Resp 20 04/11/25 10:17 BP 109/53 L 04/11/25 10:17 Pulse Ox 98 04/11/25 10:17 O2 Del Method Room Air 04/11/25 10:17 BMI result Body Mass Index 30.6 Objective Data Active Medications Acetaminophen (Acetaminophen 325 Mg Tablet) 650 mg PO Q6H PRN PRN Reason: Pain, Mild 1-3,fever,headache Calcium Carbonate (Calcium Carbonate 750 Mg Tab.Chew) 750 mg PO Q4H PRN PRN Reason: Heartburn Heparin Sodium (Porcine) (Heparin Sodium,Porcine 5,000 Unit/Ml Vial) 5,000 unit SUBCUT Q8H [facility] Last Admin: 04/11/25 05:19 Dose: 5,000 unit Documented By: SANDRA Dextrose/Sodium Chloride (D51/2ns) 1,000 mls @ 100 mls/hr IVCONT .Q10H [facility] Last Admin: 04/11/25 07:59 Dose: 100 mls/hr Documented By: MAGED Loperamide HCl (Loperamide Hcl 2 Mg Capsule) 2 mg PO Q4H PRN PRN Reason: Diarrhea Magnesium Hydroxide (Milk Of Magnesia 30 Ml Oral.Susp) 30 ml PO DAILY PRN PRN Reason: Constipation Melatonin (Melatonin 3 Mg Tablet) 6 mg PO BEDTIME PRN PRN Reason: Insomnia Sodium Chloride (0.9 % Sodium Chloride Flush 3 Ml Syringe) 3 ml IVFLUSH QSHIFT [facility] Last Admin: 04/11/25 07:58 Dose: Not Given Documented By: MAGED Non-Admin Reason: IV Running Vancomycin HCl (Vancomycin Hcl 125 Mg Capsule) 125 mg PO QID [facility] Last Admin: 04/11/25 09:21 Dose: 125 mg Documented By: MAGED Labs 04/11/25 04:14 04/11/25 04:14 Labs: Laboratory Results - last 24 hr 04/10/25 04/10/25 04/10/25 17:19 17:20 17:22 MCV 97.6 MCH 31.8 MCHC 32.5 RDW 14.8 Plt Count 160 D MPV 11.0 Immature Gran % (Auto) 0.5 H Neut % (Auto) 73.3 H Lymph % (Auto) 12.9 L [place] % (Auto) 7.2 Eos % (Auto) 5.7 H Baso % (Auto) 0.4 Lymph # (Auto) 1.0 L [place] # (Auto) 0.6 Eos # (Auto) 0.5 H Baso # (Auto) 0.0 Abs Immat Gran (auto) 0.04 H Absolute Neuts (auto) 5.9 Absolute Nucleated RBC 0.000 Nucleated RBC % (auto) 0.0 Hold Purple Top SEE NOTE Hold Blue Top SEE NOTE Anion Gap 13 Estim Creat Clear Calc 40.8 Estimated GFR 46 Random Glucose 125 H Lactic Acid 2.4 H* Lactic Acid F/U @ 2Hr Calcium 8.7 D Total Bilirubin 0.9 AST 52 H ALT 16 Alkaline Phosphatase 99 Total Protein 8.6 H Albumin 3.0 L Lipase 26 Urine Color Urine Appearance Urine pH Ur Specific [place] Urine Protein Urine Glucose (UA) Urine Ketones Urine Blood Urine Nitrite Ur Leukocyte Esterase Urine RBC Urine WBC Urine WBC Clumps Ur Squamous Epith Cells Urine Bacteria Hyaline Casts COVID-19 ([facility]) Negative COVID-19 Clin Com See Note Influenza Type A ([facility]) Negative Influenza Type B ([facility]) Negative Influenza A & B Note See Note 04/10/25 04/11/25 04/11/25 21:02 04:14 08:38 MCV 99.4 H MCH 31.3 MCHC 31.5 RDW 14.8 Plt Count 93 L D MPV 12.5 H Immature Gran % (Auto) 0.4 Neut % (Auto) 57.1 Lymph % (Auto) 24.7 [place] % (Auto) 10.8 Eos % (Auto) 6.6 H Baso % (Auto) 0.4 Lymph # (Auto) 1.7 [place] # (Auto) 0.7 Eos # (Auto) 0.5 H Baso # (Auto) 0.0 Abs Immat Gran (auto) 0.03 Absolute Neuts (auto) 3.9 Absolute Nucleated RBC 0.000 Nucleated RBC % (auto) 0.0 Hold Purple Top Hold Blue Top Anion Gap 8 L Estim Creat Clear Calc 38.8 Estimated GFR 44 Random Glucose 102 Lactic Acid Lactic Acid F/U @ 2Hr 1.4 Calcium 8.2 L Total Bilirubin 0.6 AST 40 H ALT 11 Alkaline Phosphatase 79 Total Protein 6.9 Albumin 2.5 L Lipase Urine Color Yellow Urine Appearance Cloudy Urine pH 5.0 Ur Specific [place] >= 1.030 H Urine Protein 30 (1+) H Urine Glucose (UA) Negative Urine Ketones Negative Urine Blood Large (3+) H Urine Nitrite Positive H Ur Leukocyte Esterase Moderate (2+) H Urine RBC >20 H Urine WBC >50 H Urine WBC Clumps Present Ur Squamous Epith Cells 3-5 Urine Bacteria 2+ Hyaline Casts 0-2 COVID-19 ([facility]) COVID-19 Clin Com Influenza Type A ([facility]) Influenza Type B ([facility]) Influenza A & B Note Assessment and Plan (1) CAD (coronary artery disease): Status: Acute (2) Cirrhosis of liver: Status: Acute Plan 69F PMH recurrent UTI, esophageal obstructions/stricture, cirrhosis, renal mass, cad, celiac, cdif, presented with diarrhea Recurrent nausea vomiting and diarrhea Concern for recurrent C diff, check stool studies, continue vancomycin History of CAD Holding aspirin for chronic thrombocytopenia due to cirrhosis DVT prophylaxis-heparin subQ Full code reason for continued hospitalization: Ongoing diarrhea Quality Stroke Does the patient have a stroke diagnosis?: No VTE Prior VTE?: No VTE Risk Level:: Medical - moderate - high VTE Device Contraindication: Treatment Not Indicated VTE Drug Contraindication: N/A - Med Ordered
--- NOTE | 2025-04-11 14:44 | MHC.CM.PN ---
IMM 04/11/25, Pt. lives with her cousin, she was in this hosp. beg in [place], and went to [facility] for STR, she said it was good. She went home with no services. She uses a cane. PCP is Haseeb Rascon MD. she has not seen him yet, missed recent appt. HCP on file and confirmed: [facility], Pt. may need assistance with transport home at DC, DCP: home, no services. CM to follow for DC needs.
[2025-04-11 17:52] LABS: CDiff Gene PCR NEGATIVE (Negative)
[2025-04-11 18:35] VITALS: PULSE 83; RESP 19; TEMP 36.9; O2SAT 96
[2025-04-11 20:00] VITALS: BP 141/66; PULSE 87; RESP 15; TEMP 36.2; O2SAT 96
[2025-04-11 20:26] VITALS: BMI 30.7
[2025-04-12 03:38] VITALS: BP 135/62; PULSE 74; RESP 17; TEMP 36.4; O2SAT 95
[2025-04-12 06:37] LABS: Hematocrit 30.5 % (37.0-47.0); Hemoglobin 9.9 g/dl (12.0-16.0); Mean Corpuscular HGB Conc 32.5 g/dl (31.0-35.0); Mean Corpuscular Hemoglobin 32.2 pg (27.0-33.0); Mean Corpuscular Volume 99.3 fL (80.0-98.0); NRBC Abs Auto 0.000 X10*3/uL (0.0-0.012); NRBC Pct Auto 0.0 /100WBC (0.0-0.2); Red Blood Count 3.07 X10*6/uL (4.20-5.50); White Blood Count 5.1 X10*3/uL (4.8-10.8)
[2025-04-12 06:44] LABS: Anion Gap 7 (12-20); Blood Urea Nitrogen 16 mg/dL (9-16); Calcium 8.2 mg/dL (8.4-10.2); Carbon Dioxide 21 mmol/L (22-29); Chloride 114 mmol/L (96-108); Creatinine Clr Calc Pharmacy 47.4; Estimated Glomerular Filt Rate 55; Magnesium 1.9 mg/dL (1.6-2.6); Potassium 4.0 mmol/L (3.3-5.1); Sodium 138 mmol/L (135-145)
[2025-04-12 06:47] LABS: Platelet Count 83 X10*3/uL (160-400)
[2025-04-12 07:51] VITALS: BP 101/56; PULSE 70; RESP 14; TEMP 36.1; O2SAT 95
[2025-04-12 08:24] LABS: E. coli EAEC Not Detected (Not Detect.); E. coli EPEC Not Detected (Not Detect.); E. coli ETEC Not Detected (Not Detect.); E. coli STEC Not Detected (Not Detect.); Shigella sp./EIEC Not Detected (Not Detect.)
--- NOTE | 2025-04-12 09:13 | PM.DS ---
DS: Providers Provider Date of Service: 04/12/25 Date of admission: 04/10/25 20:24 Date of discharge: 04/12/25 Primary care physician: [facility] DS: Diagnosis Discharge Diagnosis (1) CAD (coronary artery disease): Status: Acute (2) Cirrhosis of liver: Status: Acute DS: Summary Hospital Course Hospital Course: from initial hpi: 69-year-old female with a past medical history of recurrent UTI, history of esophageal obstruction/stricture, celiac disease, autoimmune hepatitis, history of staghorn calculus, chronic low back pain, renal mass, prediabetes, anemia, nephrolithiasis, CAD; recent admission to the hospital for C diff; presented to the hospital today with a chief complaint of nausea/vomiting/diarrhea. Patient mentioned that she was just discharged from the rehab about a day ago after she went home she was initially okay and her diarrhea has been improving and she is still on the p.o. vancomycin course for her C diff. But prior to coming to the hospital she had few episodes of loose stools. Denies any blood in the stool. Denies any abdominal discomfort. Has had nausea and vomiting. Hence came to the ER for further evaluation. Patient denies any fevers. Denies any chest pain or palpitations. Denies any urinary symptoms. Review of all other systems is negative except mentioned above ER course: Per ER team, patient abdominal exam was benign; CT abdomen pelvis showed no acute findings; patient was nauseous; given antinausea medications; patient failed p.o. challe hospital course: Patient was admitted for recurrent nausea vomiting and diarrhea. There was concern for recurrent C diff this was checked and as well as stool PCR which was negative. She was continued on vancomycin from previous infection but was started on Imodium with improvement in diarrhea. Patient's nausea and vomiting also resolved and was able to tolerate p.o. for chronic thrombocytopenia due to liver cirrhosis aspirin has been held. Patient states that she is ambulating well and not requiring rehab at this time she will be discharged home. Time Attestation Discharge Coordination Time (in mins): 34 Quality: Safe Use of Opioids Does Pt have an Active Cancer Diagnosis on the Problem List?: No Quality: Stroke Does the patient have a stroke diagnosis?: No Physical Exam Exam: Exam: General: AO X 3, no acute disterss Resp: CTA bilateral, no accessory muscles used CVS: S1,S2,RRR GI: soft, non tender, non distended Neuro: motor grossly intact, alert Psych: appropriate affect, appropriate insight Vital Signs: Vital Signs: Last Vital Signs Temp 97.0 F 04/12/25 07:51 Pulse 70 04/12/25 07:51 Resp 14 04/12/25 07:51 BP 101/56 L 04/12/25 07:51 Pulse Ox 95 04/12/25 07:51 O2 Del Method Room Air 04/12/25 07:51 BMI result Body Mass Index 30.7 DS: Data Data Completed and Pending Labs on day of discharge: Laboratory Results - last 24 hr 04/10/25 04/11/25 04/11/25 17:20 08:38 16:55 WBC RBC Hgb Hct MCV MCH MCHC RDW Plt Count MPV Absolute Nucleated RBC Nucleated RBC % (auto) Sodium Potassium Chloride Carbon Dioxide Anion Gap BUN Creatinine Estim Creat Clear Calc Estimated GFR Random Glucose Lactic Acid 2.4 H* Calcium Magnesium Urine Color Yellow Urine Appearance Cloudy Urine pH 5.0 Ur Specific [place] >= 1.030 H Urine Protein 30 (1+) H Urine Glucose (UA) Negative Urine Ketones Negative Urine Blood Large (3+) H Urine Nitrite Positive H Ur Leukocyte Esterase Moderate (2+) H Urine RBC >20 H Urine WBC >50 H Urine WBC Clumps Present Ur Squamous Epith Cells 3-5 Urine Bacteria 2+ Hyaline Casts 0-2 Stl C. cayetanensis PCR Not Detected Stool Rotavirus A PCR Not Detected Stl Adenov F 40/41 PCR Not Detected Stool Astrovirus (PCR) Not Detected Stool Campylobacter PCR Not Detected Stool Cryptosporidium PCR Not Detected Stl Sh Tox Pr E STEC PCR Not Detected Stool E coli O157 PCR Not applicable Stl Enterotoxigenic E PCR Not Detected Stool EPEC (PCR) Not Detected Stool EAEC (PCR) Not Detected Stl E. histolytica PCR Not Detected Stool Giardia Lamblia PCR Not Detected Stl P. shigelloides PCR Not Detected Stool Salmonella PCR Not Detected Stool Sapovirus (PCR) Not Detected Stl Shigella/EIEC PCR Not Detected St Y.enterocolitica PCR Not Detected Stool Vibrio (PCR) Not Detected Stl Vibrio cholerae PCR Not Detected Stl Norovirus GI/GII PCR Not Detected C. difficile Tox B Gene NEGATIVE 04/12/25 05:58 WBC 5.1 RBC 3.07 L Hgb 9.9 L Hct 30.5 L MCV 99.3 H MCH 32.2 MCHC 32.5 RDW 14.6 Plt Count 83 L MPV 12.4 H Absolute Nucleated RBC 0.000 Nucleated RBC % (auto) 0.0 Sodium 138 Potassium 4.0 Chloride 114 H Carbon Dioxide 21 L Anion Gap 7 L BUN 16 Creatinine 1.00 Estim Creat Clear Calc 47.4 Estimated GFR 55 Random Glucose 107 Lactic Acid Calcium 8.2 L Magnesium 1.9 Urine Color Urine Appearance Urine pH Ur Specific Al[place] Urine Protein Urine Glucose (UA) Urine Ketones Urine Blood Urine Nitrite Ur Leukocyte Esterase Urine RBC Urine WBC Urine WBC Clumps Ur Squamous Epith Cells Urine Bacteria Hyaline Casts Stl C. cayetanensis PCR Stool Rotavirus A PCR Stl Adenov F 40/41 PCR Stool Astrovirus (PCR) Stool Campylobacter PCR Stool Cryptosporidium PCR Stl Sh Tox Pr E STEC PCR Stool E coli O157 PCR Stl Enterotoxigenic E PCR Stool EPEC (PCR) Stool EAEC (PCR) Stl E. histolytica PCR Stool Giardia Lamblia PCR Stl P. shigelloides PCR Stool Salmonella PCR Stool Sapovirus (PCR) Stl Shigella/EIEC PCR St Y.enterocolitica PCR Stool Vibrio (PCR) Stl Vibrio cholerae PCR Stl Norovirus GI/GII PCR C. difficile Tox B Gene Discharge Plan Discharge Anticipated Discharge Date/Time: 04/12/25 09:06 Patient Disposition: Home, Self-Care Discharge Diagnosis: diarrhea Referrals: [facility] [Primary Care Provider, Medical] - 1 Week Discharge Medications: New loperamide 2 mg Capsule 2 mg PO Q4H PRN (Reason: Diarrhea) Qty: 10 0RF Continued vancomycin 125 mg Capsule 125 mg PO QID Qty: 20 0RF Discontinued aspirin 81 mg Tablet,Chewable 81 mg PO DAILY Discharge Orders: Discharge Order (Routine); Ordered 04/12/25 Ordered By: Yusef Park Diet: Advance to usual diet Activity on Discharge: As tolerated Stand Alone Forms: Patient Portal Discharge page Print Language: Serbian Care Plan Goals: manage diarrhea Health Concerns: diarrhea Plan of Treatment: cdif now negative, can use imodium prn Assessment: see above
--- NOTE | 2025-04-12 10:36 | MHC.CM.PN ---
Addendum entered by Estefany Wilson RN 04/12/25 10:45: Patient verbalizing dissatisfaction w/ dc today and doesn't feel she got the answers she was looking for. Though reports that her symptoms are much improved. Patient reminded of her Medicare rights, and does not wish to appeal her dc. Reports she feels medically ready for dc and has a follow up appointment with her PCP on Wednesday. RN aware. Original Note: Patient medically cleared for dc home self care. Requesting Lyft ride to [employer] on [address], as she says she is renting a [employer] and going out of town for a few days. RN aware.
[2025-04-12 11:06] VITALS: BP 138/63; PULSE 84; RESP 18; TEMP 36.1; O2SAT 96
== END 2025-04-12 10:54 | disposition home or self-care (01) | DRG 392 ==
LOC: HO.ED 20:08 → HO.EDOVER 20:37 → HO.S3 04-11 19:23
PROVIDERS: Admitting Provider Hospitalist; Emergency Provider Emergency Medicine; PCP Student in an Organized Health Care Education/Training Program; Visit Provider Internal Medicine
DX: R19.7 Diarrhea, unspecified (principal); R11.2 Nausea with vomiting, unspecified; I25.10 Atherosclerotic heart disease of native coronary artery without angina pectoris; K90.0 Celiac disease; K74.60 Unspecified cirrhosis of liver; D69.59 Other secondary thrombocytopenia; Z20.822 Contact with and (suspected) exposure to COVID-19; Z95.5 Presence of coronary angioplasty implant and graft; Z79.82 Long term (current) use of aspirin; Z79.899 Other long term (current) drug therapy
CPT/HCPCS: 36415; 74177; 80048; 80053; 81001; 83605; 83690; 83735; 85025; 85027; 87086; 87088; 87186; 87493; 87502; 87507; 87635; 93005; 99221; 99285; J1644; J2405; J7120; Q9967

== ENCOUNTER → 2025-04-10 17:18 | Outpatient (BNV) | payer MEDICARE, SELFPAY | PROVIDERS: Admitting Provider Hospitalist; Emergency Provider Emergency Medicine; Visit Provider Internal Medicine | DX: I45.10 Unspecified right bundle-branch block (principal) | CPT/HCPCS: 93010 ==

== ENCOUNTER → 2025-04-10 18:36 | Outpatient (BNV) | payer MEDICARE, SELFPAY | PROVIDERS: Emergency Provider Emergency Medicine; Visit Provider Student in an Organized Health Care Education/Training Program | DX: K57.30 Diverticulosis of large intestine without perforation or abscess without bleeding (principal); R16.1 Splenomegaly, not elsewhere classified; I86.2 Pelvic varices; N26.1 Atrophy of kidney (terminal); Z90.49 Acquired absence of other specified parts of digestive tract | CPT/HCPCS: 74177 ==

== ENCOUNTER → 2025-04-10 20:24 | Outpatient (BNV) | payer MEDICARE, SELFPAY | PROVIDERS: Admitting Provider Hospitalist; Emergency Provider Emergency Medicine; Visit Provider Internal Medicine | DX: I25.10 Atherosclerotic heart disease of native coronary artery without angina pectoris (principal); K74.60 Unspecified cirrhosis of liver | CPT/HCPCS: 99222; 99239; 99499 ==

== ENCOUNTER 2025-04-16 16:10 | Outpatient (AMB) | payer MEDICARE, SELFPAY ==
--- NOTE | 2025-04-16 16:11 | A.OFFPC_ITS ---
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 Required: No Accompanied by: Self / Same As Patient Allergies peach (PEACH) Allergy (Intermediate, Verified 04/16/25 16:11) DIFFICULTY BREATHING Medication List - Last Reconciled 04/16/25 by Haseeb Ferris MD albuterol sulfate 90 mcg/actuation (Ventolin HFA) 2 puffs inhalation Q6H PRN aspirin 81 mg PO DAILY Tobacco use date assessed: 03/01/25 Fall risk assessment: No Falls in past year Last assessed Fall Risk: 04/16/25 Dental Screening Dental Screen Date: 04/16/25 Did you have a dental visit in the last 12 months?: No Did you have a dental problem in the last 6 months where you did not have access to dental care?: Yes Was dental information given to patient?: Patient has dentist HPI HPI Comments History of Present Illness Details History of Present Illness The patient is a 69 year old female presenting for a follow-up visit and to establish continuity of care. She has a history of recent hospitalization for diarrhea, for which she was treated with loperamide, which she has since discontinued. Prior to this, she had a Clostridioides difficile infection treated with a completed course of vancomycin. The patient also had influenza and pneumonia during a recent hospitalization. She has a history of esophageal strictures and has undergone two dilations. She recently saw Dr. Cross, who has scheduled her for two more surgeries. 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 She has a history of celiac disease, which is managed with diet. She also has coronary artery disease with three stents, for which she takes aspirin. Her blood pressure has been normal in the hospital but was elevated in the office today. Her autoimmune hepatitis is stable, with an AST of 40 and ALT of 11. The patient has a history of renal stones, status post stent placement. She has vertigo and requires a new prescription for physical therapy, as the previous one due to her being in and out of the hospital. She reports feeling dizzy from the vertigo. She is uncertain if she received meclizine for it during her last hospitalization. The patient reports an intention tremor in her hands when eating. Medical History: - Recent hospitalization for diarrhea - Clostridioides difficile infection, tr eated with vancomycin - Esophageal strictures - Autoimmune hemolytic anemia - Vertigo - Celiac disease, diet-controlled - Coronary artery disease - Hypertension, noted in office - Autoimmune hepatitis, stable - History of renal stones - Received iron infusions - Recent influenza - Recent pneumonia Surgical History: - Esophageal dilations (x2), with two mo re scheduled - Coronary artery stents (x3) - Renal stent placement for kidney stone s Medications: - Loperamide: Taken for diarrhea, now di scontinued. - Vancomycin: Completed course for C. di fficile infection. - Aspirin: For coronary artery disease. Diagnostic Results: - Bloodwork: Stable - AST: 40 - ALT: 11 Social History - Housing: Currently staying with her co maira while looking for a place of her own. - Travel/Relocation: She is considering moving to [place] where her sister lives but has not made a decision. 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 Mother No problems noted. Social History Household Members: Family Household Members Other:: cousin and son Housing: Apartment Are you a primary home health care case manager to a significant other at home: No Do you presently have visiting nurse or other home services: No Alcohol intake: former Comment: pt high fall risk Patient Tobacco Use Status: Never used Tobacco e-Cigarette/Vaping Use: Never Used Second Hand Smoke Exposure: No service: No Current occupational status: retired Current occupational exposures/hazards: No Cognitive needs: No Hearing needs: No Vision needs: No Questionnaire Thrive Questionnaire Date Thrive assessed: 04/11/25 RICKY-7 AMB Questionnaire RICKY-7 Date RICKY - 7 assessed: 03/01/25 Source: Developed by Drs. Javier Marcos, Danielle Kimble, Dawson Oates and colleagues, with an educational wilbur from [employer]. Review of Systems Narrative Review of Systems - Neurological: Reports vertigo and associated dizziness. - Musculoskeletal: Reports hand tremor when eating. - Gastrointestinal: Reports recent history of diarrhea. All systems reviewed & are unremarkable except as reviewed in HPI and above Physical exam (Primary Care) Vital Signs: Last Vital Signs Temp 97.8 F 04/16/25 16:19 Pulse 102 H 04/16/25 16:19 Resp 18 04/16/25 16:19 BP 167/72 H 04/16/25 16:19 Pulse Ox 98 04/16/25 16:19 Oxygen Delivery Method Room Air 04/16/25 16:19 BMI result Body Mass Index 32.4 Tobacco/Smoking Status: Tobacco use Status Tobacco use date assessed 03/01/25 04/16/25 16:13 Patient Tobacco Use Status Never used Tobacco 04/16/25 16:13 e-Cigarette/Vaping Use Never Used 04/16/25 16:13 Thrive Assessment: Date of Thrive Assessment Date Thrive assessed 04/11/25 04/16/25 16:13 Narrative Physical Exam General: +Alert and oriented, Well nourished, No acute distress. Eye: Pupils are equal, round and reactive to light, Intact accommodation, Extraocular movements are intact, Normal conjunctiva, Vision unchanged. HENT: Normocephalic, Atraumatic, Tympanic membranes are clear, Normal hearing, Oral mucosa is moist, No pharyngeal erythema, Ear canals patent. Respiratory: Lungs CTA bilaterally, No wheeze, Respirations are non-labored. Cardiovascular: Regular rate, Regular rhythm, S1 auscultated, S2 auscultated, No murmur, Good pulses equal in all extremities, Normal peripheral perfusion, No edema. Gastrointestinal: Soft, Non-tender, Non-distended, Normal bowel sounds, No organomegaly. Musculoskeletal: Normal range of motion, Normal strength, No tenderness, No swelling, No deformity, Normal gait. Integumentary: Warm, Dry, [place], Intact. Neurologic: Alert, Oriented, Normal sensory, Normal motor function, No focal defects, Cranial Nerves II-XII are grossly intact, Normal deep tendon reflexes. Psychiatric: Cooperative, Appropriate mood & affect, Normal judgment. Coding Level of Care Code Est Pt Level 4 (11817) Complex visit Add On G2211 Diagnoses Esophageal stricture K22.2 Clostridium difficile diarrhea A04.72 Coronary artery disease involving levelock coronary artery of levelock heart without angina pectoris I25.10 Associated angina: without angina Coronary Disease-Associated Artery/Lesion type: levelock artery [place] vs. transplanted heart: levelock heart Celiac disease K90.0 Autoimmune hepatitis K75.4 Autoimmune hemolytic anemia D59.10 Vertigo R42 Elevated heart rate with elevated blood pressure without diagnosis of hypertension R00.9; R03.0 Assessment & Plan Assessment & Plan (1) Esophageal stricture: Comment: - The patient has had two dilations and has two more surgeries scheduled with Dr. Cross. - She will continue to follow up with her specialist. Code(s): K22.2 - Esophageal obstruction Category: Medical (2) Clostridium difficile diarrhea: Code(s): A04.72 - Enterocolitis due to Clostridium difficile, not specified as recurrent Category: Medical (3) CAD (coronary artery disease): Comment: - Status post three stents. - The patient will continue aspirin. - No changes will be made at this time. Code(s): I25.10 - Atherosclerotic heart disease of [place] coronary artery without angina pectoris Category: Medical Qualifiers: Associated angina: without angina Coronary Disease-Associated Artery/Lesion type: [place] artery [place] vs. transplanted heart: levelock heart Qualified Code(s): I25.10 - Atherosclerotic heart disease of [place] coronary artery without angina pectoris (4) Celiac disease: Comment: - This is diet-controlled and requires no medication changes. Code(s): K90.0 - Celiac disease Category: Medical (5) Autoimmune hepatitis: Comment: - Bloodwork is stable, with AST 40 and ALT 11. - The patient will continue follow up with Dr. Cross. Code(s): K75.4 - Autoimmune hepatitis Category: Medical (6) Autoimmune hemolytic anemia: Comment: - Condition is noted to be present, and the patient is followed by a interventional technologist. - Will continue to follow with specialist. Code(s): D59.10 - Autoimmune hemolytic anemia, unspecified Category: Medical (7) Vertigo: Comment: - The patient has a history of vertigo, and a previous prescription for physical therapy has . - A new referral to physical therapy has been sent. Code(s): R42 - Dizziness and giddiness Category: Medical (8) Elevated heart rate with elevated blood pressure without diagnosis of hypertension: Comment: - Blood pressure was high in the office but has been fine in the hospital. - No antihypertensive medications will be started at this time. Code(s): R00.9 - Unspecified abnormalities of heart beat; R03.0 - Elevated blood-pressure reading, without diagnosis of hypertension Category: Medical Plan: Health Maintenance: - The patient will continue to follow up with her specialists, including hematology and gastroenterology. - A follow-up visit is scheduled in four months. - A referral to physical therapy for vertigo was provided. Patient was informed and verbally consented to the use of an ambient scribe for clinic note documentation during this visit. Plan I have reviewed the patient's chart and her extensive medical history, including her recent hospitalization for diarrhea, C. difficile infection, and history of esophageal strictures, autoimmune hemolytic anemia, celiac disease, coronary artery disease, autoimmune hepatitis, and renal stones. Given that her conditions are stable and she is actively followed by multiple specialists, no changes will be made to her current treatment plan. Her blood pressure was high today, but I will not start medication as it has been normal during hospitalizations. I have sent a referral to physical therapy for her vertigo as requested. I advised her that her hand tremor when eating is an intention tremor and a normal part of aging. We will continue to manage her care, and she will follow up in four months. Orders: Orders PT Evaluation and Treatment Today R42 - Dizziness and giddiness Patient Instructions: - Continue with your current medications and management as things are stable. - Keep following up with your specialists for your ongoing health issues. - A referral has been sent for physical therapy to help with your vertigo. - Schedule your next appointment with this office in four months. - If any new issues arise, please contact the clinic.
[2025-04-16 16:19] VITALS: BP 167/72; PULSE 102; RESP 18; TEMP 36.6; O2SAT 98; BMI 32.4
--- OUTSIDE RECORDS SUMMARY | 2025-04-17 01:41 | XMS_ITS | Clinical Summary ---
Author Organization [facility] Address [address] [place] [address] Care Team Providers Care Fbi Profiler Name Role Phone Ania Browning MD Primary Care Provider Surgical History Surgery Date Site/Laterality Comments CARPAL TUNNEL RELEASE 07/26/2008 PROCEDURE: ND NEUROPLASTY &/TRANSPOS MEDIAN NRV CARPAL TUNNE CYSTOSCOPY 10/26/2011 PROCEDURE: ND CYSTOURETHROSCOPY; COMMENT: Dr Sunny Miranda CYSTOSCOPY 03/31/2016 Left PROCEDURE: ND CYSTOURETHROSCOPY; COMMENT: ureteroscopy, laser lithotripsy, stent placement COLONOSCOPY 08/2008 PROCEDURE: HISTORICAL COLONOSCOPY OTHER SURGICAL HISTORY 09/11/2020 PROCEDURE: ND PRQ TRLUML CORONARY STENT W/ANGIO ONE ART/BRNCH [...] on file Sexual Orientation Not on file Last Filed Vital Signs [...] Documents on File Type Date Recorded Patient Community Relations Advisor Expl anation Health Care Decision (hx) 03/31/2016 AD CARROLL DIRECTIVE Health Care Decision (hx) 03/31/2016 AD CARROLL DIRECTIVE Health Care Decision (hx) 03/31/2016 AD CARROLL DIRECTIVE Health Care Decision (hx) 03/31/2016 AD CARROLL DIRECTIVE Health Care Decision (hx) 03/31/2016 AD CARROLL DIRECTIVE Care Teams Fbi Profiler Relationship Specialty Start Date End Date Ania Browning MD PCP - General Internal Medicine 12/02/21
== END 2025-04-16 16:34 | disposition home or self-care (01) ==
LOC: HO.HMCHD 16:10
PROVIDERS: PCP Student in an Organized Health Care Education/Training Program; Visit Provider Student in an Organized Health Care Education/Training Program
DX: K22.2 Esophageal obstruction (principal); A04.72 Enterocolitis due to Clostridium difficile, not specified as recurrent; I25.10 Atherosclerotic heart disease of native coronary artery without angina pectoris; K90.0 Celiac disease; K75.4 Autoimmune hepatitis; D59.10 Autoimmune hemolytic anemia, unspecified; R42 Dizziness and giddiness; R00.9 Unspecified abnormalities of heart beat; R03.0 Elevated blood-pressure reading, without diagnosis of hypertension

== ENCOUNTER → 2025-04-16 16:10 | Outpatient (BNVA) | payer MEDICARE, OTHER, SELFPAY | PROVIDERS: PCP Student in an Organized Health Care Education/Training Program; Visit Provider Student in an Organized Health Care Education/Training Program | DX: K22.2 Esophageal obstruction (principal); A04.72 Enterocolitis due to Clostridium difficile, not specified as recurrent; I25.10 Atherosclerotic heart disease of native coronary artery without angina pectoris; K90.0 Celiac disease; K75.4 Autoimmune hepatitis; D59.10 Autoimmune hemolytic anemia, unspecified; R42 Dizziness and giddiness; R00.9 Unspecified abnormalities of heart beat; R03.0 Elevated blood-pressure reading, without diagnosis of hypertension | CPT/HCPCS: 99212 ==